=== PATIENT | female | born 1945 | race Caucasian/White ===

== ENCOUNTER → 2017-02-07 | Outpatient (CLI) | payer OTHER ==
[~2017-02-07] MED LIST: CHLO10CA7 PO; CIPR250T3 PO; CITA20TA4 PO; FOLI1TAB7 PO; LORA0.5T12 PO; MULT-878 PO; NCDT21X TD; PANT1TAB48 PO; POTA-331 PO; THIA100T11 PO
--- NOTE | 2017-02-07 14:49 | DIAGNOSTIC IMAGING REPORT ---
RIBS BILATERAL WITH PA CHEST CLINICAL HISTORY: Bilateral rib pain following fall. COMPARISON STUDY: Chest radiograph January 17, 2013. FINDINGS: There is no pneumothorax or pleural effusion. Lungs are clear. Cardiac size is normal. Mediastinal contours are normal. There are acute mildly displaced fractures of the anterolateral left sixth, seventh and eighth ribs. There is an acute mildly displaced fracture of the anterolateral right eighth rib with nondisplaced acute fractures of the right ninth and 10th ribs. There are multiple bilateral rib fractures. IMPRESSION: 1. Acute mildly displaced fractures of the anterolateral left sixth, seventh and eighth ribs. 2. Acute mildly displaced fracture of the anterolateral right eighth rib with nondisplaced acute fractures of the right ninth and 10th ribs. 3. No pneumothorax. 4. Multiple old bilateral rib fractures. Electronically signed by: Fran Cisse M.D. 02/07/2017 2:47 PM Dictated Date/Time: 02/07/2017 2:42 PM
== END ==
LOC: C.RADPV 14:06
PROVIDERS: ATTEND Nurse Practitioner
DX: R07.81 Pleurodynia (principal)

== ENCOUNTER → 2017-08-11 | Outpatient (CLI) | payer OTHER ==
[2017-08-11 18:00] LABS: BASO % 0.9 %; BASO ABS # 0.06 K/uL (0-0.2); COMPLETE YES; EOS % 3.9 %; HEMATOCRIT 36.1 % (37-47); IG% 0.2 %; LYMPH % 30.8 %; LYMPH ABS # 1.99 K/uL (1.2-3.4); MEAN CELL VOLUME 94.5 fL (80-100); MEAN CORPUSCULAR HEMOGLOBIN 31.7 pg (25-34); MEAN CORPUSCULAR HGB CONC 33.5 g/dl (32-36); MONO % 9.4 %; NEUT % 54.8 %; PLATELET COUNT 208 K/uL (130-400); RED BLOOD COUNT 3.82 M/uL (4.2-5.4); WHITE BLOOD COUNT 6.46 K/uL (4.8-10.8)
[2017-08-11 18:20] LABS: BLOOD UREA NITROGEN 13 mg/dl (7-18); BUN/CREATININE RATIO 18.2 (10-20); CALCIUM 10.2 mg/dl (8.5-10.1); CARBON DIOXIDE 28 mmol/L (21-32); CHLORIDE 99 mmol/L (98-107); CREATININE 0.74 mg/dl (0.60-1.20); GLUCOSE 102 mg/dl (70-99); POTASSIUM 3.2 mmol/L (3.5-5.1); SODIUM 135 mmol/L (136-145)
[2017-08-11 18:23] LABS: CHOLESTEROL 206 mg/dl (0-200); CHOLESTEROL/HDL RATIO 2.4; HDL CHOLESTEROL 86 mg/dl; LDL CHOLESTEROL CALCULATED 88 mg/dl; TRIGLYCERIDES 158 mg/dl (0-150); VERY LOW DENSITY LIPOPROT CALC 32 mg/dl
[2017-08-12 06:49] LABS: ESTIMATED AVERAGE GLUCOSE 108 mg/dl; HA1C FLAG Normal (Normal)
== END | disposition home or self-care (01) ==
LOC: C.LABPVFM 11:26
PROVIDERS: ATTEND Nurse Practitioner
DX: E78.5 Hyperlipidemia, unspecified (principal); D50.9 Iron deficiency anemia, unspecified; I10 Essential (primary) hypertension; R73.01 Impaired fasting glucose

== ENCOUNTER → 2017-09-22 | Outpatient (CLI) | payer OTHER ==
[~2017-09-22] MED LIST changes: -FOLI1TAB7 PO; +FOLI1TAB8 PO; +PANT1TAB3 PO; -PANT1TAB48 PO
[2017-09-22 13:34] LABS: BLOOD UREA NITROGEN 14 mg/dl (7-18); CALCIUM 10.1 mg/dl (8.5-10.1); CARBON DIOXIDE 27 mmol/L (21-32); CREATININE 0.81 mg/dl (0.60-1.20); GLUCOSE 100 mg/dl (70-99); POTASSIUM 3.6 mmol/L (3.5-5.1); SODIUM 136 mmol/L (136-145)
== END | disposition home or self-care (01) ==
LOC: C.LABPVFM 10:30
PROVIDERS: ATTEND Nurse Practitioner
DX: E87.6 Hypokalemia (principal); E83.52 Hypercalcemia

== ENCOUNTER → 2017-11-02 | Outpatient (CLI) | payer OTHER ==
[2017-11-02 12:39] LABS: BASO % 0.9 %; BASO ABS # 0.05 K/uL (0-0.2); EOS % 1.5 %; EOS ABS # 0.08 K/uL (0-0.5); HEMATOCRIT 35.6 % (37-47); HEMOGLOBIN 12.6 g/dL (12.0-16.0); IG# 0.01 K/uL (0.00-0.02); LYMPH % 27.7 %; LYMPH ABS # 1.51 K/uL (1.2-3.4); MEAN CELL VOLUME 91.5 fL (80-100); MEAN CORPUSCULAR HEMOGLOBIN 32.4 pg (25-34); MEAN CORPUSCULAR HGB CONC 35.4 g/dl (32-36); MEAN PLATELET VOLUME 10.8 fL (7.4-10.4); MONO % 11.2 %; MONO ABS # 0.61 K/uL (0.11-0.59); NEUT % 58.5 %; NEUT ABS # 3.19 K/uL (1.4-6.5); PLATELET COUNT 200 K/uL (130-400); RED CELL DISTRIBUTION WIDTH CV 13.1 % (11.5-14.5); RED CELL DISTRIBUTION WIDTH SD 43.9 fL (36.4-46.3); WHITE BLOOD COUNT 5.45 K/uL (4.8-10.8)
[2017-11-02 14:41] LABS: ALBUMIN 4.5 gm/dl (3.4-5.0); ALKALINE PHOSPHATASE 62 U/L (45-117); ALT/SGPT 48 U/L (12-78); AST/SGOT 52 U/L (15-37); BLOOD UREA NITROGEN 11 mg/dl (7-18); CALCIUM 10.4 mg/dl (8.5-10.1); CARBON DIOXIDE 25 mmol/L (21-32); CREATININE 0.84 mg/dl (0.60-1.20); GLUCOSE 109 mg/dl (70-99); POTASSIUM 3.4 mmol/L (3.5-5.1); SODIUM 133 mmol/L (136-145)
[2017-11-02 14:46] LABS: TOTAL PROTEIN 8.2 gm/dl (6.4-8.2); TRANSFERRIN 308 mg/dl (200-360)
--- NOTE | 2017-11-10 12:24 | CODING QUERY MEDICAL NECESSITY ---
SUPPORTING DIAGNOSIS NEEDED A supporting diagnosis is required for the test/procedure performed on this patient in order for us to be reimbursed by the patient's insurance. Please provide a supporting diagnosis for the following test/procedure listed below next to the test name along with your signature. *If there is no additional diagnosis for this patient that would support the following test/procedure please document that below next to the test/procedure. Test(s)/Procedure(s) that require a supporting diagnosis: DOS: 11/02/17 * VITAMIN B12 DIAGNOSIS: * VITAMIN D, 25-HYDROXY DIAGNOSIS: Provider Signature: Date: Thank you Radha Farias [employer] Once completed, please kindly fax back to [phone] For questions please call [phone]
--- NOTE | 2017-11-14 08:44 | CODING QUERY MEDICAL NECESSITY ---
SUPPORTING DIAGNOSIS NEEDED A supporting diagnosis is required for the test/procedure performed on this patient in order for us to be reimbursed by the patient's insurance. Please provide a supporting diagnosis for the following test/procedure listed below next to the test name along with your signature. *If there is no additional diagnosis for this patient that would support the following test/procedure please document that below next to the test/procedure. Test(s)/Procedure(s) that require a supporting diagnosis: DOS: 11/02/17 * VITAMIN B12 DIAGNOSIS: * VITAMIN D, 25- HYDROXY DIAGNOSIS: Provider Signature: Date: Thank you Radha Farias [facility] Once completed, please kindly fax back to [phone] For questions please call [phone]
== END | disposition home or self-care (01) ==
LOC: C.LABPVFM 09:40
PROVIDERS: ATTEND Family Medicine
DX: G25.81 Restless legs syndrome (principal)

== ENCOUNTER → 2017-11-22 | Outpatient (CLI) | payer OTHER | END | disposition home or self-care (01) | LOC: C.LABPVFM 09:08 | PROVIDERS: ATTEND Family Medicine | DX: E55.9 Vitamin D deficiency, unspecified (principal) ==

== ENCOUNTER → 2018-03-30 | Outpatient (CLI) | payer OTHER ==
[~2018-03-30] MED LIST changes: +THIA100T10 PO; -THIA100T11 PO
[2018-03-30 13:17] LABS: ALBUMIN 4.1 gm/dl (3.4-5.0); ALKALINE PHOSPHATASE 77 U/L (45-117); ALT/SGPT 38 U/L (12-78); AST/SGOT 43 U/L (15-37); BLOOD UREA NITROGEN 11 mg/dl (7-18); CALCIUM 9.6 mg/dl (8.5-10.1); CARBON DIOXIDE 26 mmol/L (21-32); CHOLESTEROL 189 mg/dl (0-200); GLUCOSE 121 mg/dl (70-99); LDL CHOLESTEROL CALCULATED 80 mg/dl; POTASSIUM 3.3 mmol/L (3.5-5.1); SODIUM 134 mmol/L (136-145); TOTAL PROTEIN 8.1 gm/dl (6.4-8.2)
== END | disposition home or self-care (01) ==
LOC: C.LABPVFM 09:39
PROVIDERS: ATTEND Family Medicine
DX: H61.23 Impacted cerumen, bilateral (principal); E78.5 Hyperlipidemia, unspecified; M85.80 Other specified disorders of bone density and structure, unspecified site; E55.9 Vitamin D deficiency, unspecified

== ENCOUNTER 2020-11-14 06:41 | Inpatient (IN) ==
[2020-11-14] MEDS ORDERED: SODIUM CHLORIDE 0.9% 500 ML IV STA (06:54)
[2020-11-14] MEDS ORDERED: DEXAMETHASONE SOD INJ 10 MG/ML VIAL IV ONE (06:54)
--- NOTE | 2020-11-14 07:05 | Emergency Department Note ---
Impression & Plan Acute respiratory failure with hypoxia, Atrial fibrillation with rapid ventricular response, COPD exacerbation, On apixaban therapy ED Provider Note NAME: DINORAH BUSTAMANTE AGE: 75 SEX: F ARRIVES VIA: Ambulance INFORMANT: Patient, ED PROVIDER(S): Fabrice Crawford MD CHIEF COMPLAINT: Shortness of breath PLAN: Disposition: Admit MEDICAL DECISION MAKING: The patient is a pleasant 75-year-old woman with a past medical history of tobacco use, PAD on Eliquis, hypertension, hyperlipidemia who presents emergency department with acute shortness of breath, respiratory distress from [facility] following discharge yesterday after being admitted at [facility] for the past week related to her PAD and resting leg pain where she had right femoral to anterior tibial composite reverse saphenous vein bypass with harvesting of the left great saphenous vein with Dr. Robin on 11/06/2020, discharged to [facility] yesterday on IV antibiotics, ertapenem 1 g every 24 and vancomycin every 12 hours for possibility of right foot osteomyelitis. Response to this treatment is being followed closely as amputations may be needed for toe. Patient reports she was on oxygen in the hospital but became acutely worse last night into this morning. The patient was hypoxic with significant work of breathing and transferred to emergency department. On arrival the patient is in severe respiratory distress, tachypneic with labored breathing with diffuse wheezes throughout with prolonged expiratory phase with heart rate in atrial fibrillation 140-150s. She appears clinically dry. Her incision sites of bilateral groin and bilateral lower legs are clean dry and intact. Patient was placed on BiPAP and given Xopenex DuoNeb, steroids with improvement in work of breathing and respiratory rate down into the low-mid 20s. Heart rate also showing gradual improvement to mostly 120-130s and then spontaneous converstion to NSR as respiratory status improved. Initial EKG demonstrates atrial fibrillation which does appear to be new. Left bundle branch block is similar to prior. No sgarbossa criteria. Chest x-ray with bilateral interstitial pulmonary opacities left greater than right raising suspicion for pneumonia. WBC within normal limits. H/H 8.7/26.2 similar to prior. Platelets 500, likely reactive. VBG unremarkable. Chemistry without metabolic acidosis. BUN/creatinine> 30 consistent with the patient's clinically dry appearance. Lactate 1.3, within normal limits. Electrolytes unremarkable. LFTs without significant abnormality. Troponin 0.025, within normal limits. BNP elevated at 6700 without prior for comparison and likely related to the patient's atrial fibrillation with RVR. COVID-19 PCR was negative. Influenza and RSV PCR also negative. Patient is already being treated with Ertapenem and Vancomycin. Given diffuse wheezing on exam in the setting of smoking history suspected component of respiratory failure related to COPD. Case was discussed with ROBYN Hutchins hospitalist and ROBYN Medina hospitalist will evaluate the patient for admission. Triage Nursing notes reviewed and agree them. Additional history obtained from EMS Prior medical records reviewed Vital Signs: reviewed and remarkable for tachypnea, tachycardia. Differential diagnosis: Reactive airway disease, pneumonia, pneumothorax, COPD, CHF, infections, cardiac ischemia, pulmonary embolism, musculoskeletal, gastrointestinal, as well as other pathologies. ER treatment provided: See below. Diagnostics interpreted by me: ECG 0650: Atrial fibrillation, 133 bpm, no ectopy, left bundle branch block, no sgarbossa criteria. Left bundle branch block is similar to previous. ECG 0651: Atrial fibrillation, 147 bpm, no ectopy, left bundle branch block, no sgarbossa criteria. ECG 0803: Atrial fibrillation, 149 bpm, no ectopy, left bundle branch block, no sgarbossa criteria. ECG 0924: NSR, 98 bpm, no ectopy, left bundle branch block, no sgarbossa criteria. Cardiac Monitoring: An order for continuous cardiac monitoring was placed and demonstrated Laboratory studies: See below Imaging studies: XR chest 1V portable CLINICAL HISTORY: Atypical chest pain COMPARISON STUDY: 11/07/2020 FINDINGS: The cardiac and mediastinal contours remain stable. There are progressive bilateral interstitial pulmonary opacities. There are no large pleural effusions.[ IMPRESSION: 1. Progressive bilateral interstitial pulmonary opacities. Diagnostic con siderations include a worsening multifocal pneumonia versus worsening asymmetric pulmonary edema. Clinical and radiographic follow-up is recommended. Consultation(s): Case was discussed with ROBYN Hutchins hospitalist and ROBYN Medina hospitalist will evaluate the patient for admission. HPI: The patient is a pleasant 75-year-old woman with a past medical history of tobacco use, PAD, Afib on Eliquis, hypertension, hyperlipidemia who presents emergency department with acute shortness of breath, respiratory distress from [facility] following discharge yesterday after being admitted at [facility] for the past week related to her PAD and resting leg pain where she had right femoral to anterior tibial composite reverse saphenous vein bypass with harvesting of the left great saphenous vein with Dr. Robin on 11/06/2020, discharged to [facility] yesterday on IV antibiotics, ertapenem 1 g every 24 and vancomycin every 12 hours for possibility of right foot osteomyelitis. Response to this treatment is being followed closely as amputations may be needed for toe. Patient reports she was on oxygen in the hospital but became acutely worse last night into this morning. The patient was hypoxic with significant work of breathing and transferred to emergency department. ROS: See above HPI for pertinent positives & negatives. A total of 10 systems reviewed and were otherwise negative. PAST MEDICAL HISTORY:See Below PAST SURGICAL HISTORY:See Below FAMILY HISTORY:See Below SOCIAL HISTORY:See Below HOME MEDICATIONS:See Below ALLERGIES:See Below VITALS:See Below PHYSICAL EXAMINATION: GENERAL: Awake, alert, ill-appearing, in severe distress HENT: Normocephalic, atraumatic. Oropharynx with dry mucous membranes and otherwise unremarkable. EYES: Normal conjunctiva. Sclera non-icteric. NECK: Supple. No nuchal rigidity. FROM. No JVD. RESPIRATORY: Tachypneic with labored breathing with diffuse wheezes throughout with prolonged expiratory phase. CARDIAC: Tachycardic rate, irrregular rhythm. Extremities warm and well perfused. Pulses equal. ABDOMEN: Soft, non-distended. No tenderness to palpation. No rebound or guarding. No masses. RECTAL: Deferred. MUSCULOSKELETAL: Chest examination reveals no tenderness. The back is symmetrical on inspection without obvious abnormality. There is no CVA tenderness to palpation. No joint edema. LOWER EXTREMITIES: Calves are equal size bilaterally and non-tender. Scant edema. No discoloration. Incision sites of bilateral groin and bilateral lower l egs are clean dry and intact. NEURO: Normal sensorium. No sensory or motor deficits noted. SKIN: No rash or jaundice noted. ED COURSE: Critical Care: I have personally spent greater than 65 minutes of critical care time in the direct management of this patient. This includes bedside care, interpretation of diagnostic studies, and testing, discussion with consultants, patient, and family members, and other required patient management activities. This 65 minutes is in excess of all separately billable procedures. Fabrice Crawford MD Past Med/Surg History Medical History Anemia chronic, baseline hgb 10's Arthritis Chronic reflux esophagitis controlled Depression Dyslipidemia Hypertension LBBB (left bundle branch block) dating back to 08/2020 [place] EKG Osteopenia Peripheral arterial disease Bilateral Common Iliac Artery Stenting(Bilateral), Bilateral Femoral Artery Endarterectomy with Bovine Patch (08/2020) Peripheral neuropathy Pulmonary nodule per records, pt denies RLS (restless legs syndrome) Sleep apnea no device Surgical History H/O endarterectomy Bilateral Common Iliac Artery Stenting(Bilateral), Bilateral Femoral Artery Endarterectomy with Bovine Patch: 08/26/20: Grade 2 view, MAC 3.0, ETT 7.0 at [facility] History of appendectomy History of carpal tunnel release of both wrists History of colonoscopy History of tooth extraction Hx of hysterectomy Family History Other No family history of adverse response to anesthesia Social History Smoking Status: Current every day smoker Tobacco Type: Cigarettes Cigarettes Per Day: 5; Second Hand Exposure: No; Do You Dip or Chew Tobacco: No; Tobacco Cessation Education Requested by Patient: No Hx Alcohol Use: Yes Alcohol type: beer Alcohol Intake Frequency Comment: Typically 3-6 beers each day Hx Substance Use: No Preferred Language: Kittitian Communication Ability: Effective Visual Impairment: No Limitations Hearing Ability: Hard of Hearing Weapons And Tactics Instructor Required: No Beliefs That Will Affect Care: None marital status: Current Living Situation: Spouse current occupational status: retired How many Children do You have: 1 Other Information That Helps Us Care for You: No Feels Safe at Home: Yes Assistive Devices: Denture - Upper, Denture - Lower and Oxygen - Continuous Allergies Allergies Allergy/AdvReac Type Severity Reaction Status Date / Time Penicillins Allergy Intermediate Hives Verified 11/14/20 09:32 Home Meds Home Medications Medication Instructions Recorded Confirmed cholecalciferol (vitamin D3) 25 5,000 unit PO QAM cap 08/11/20 11/14/20 mcg (1,000 unit) capsule atorvastatin 40 mg PO QAM 09/26/20 11/14/20 lisinopril 5 mg PO DAILY 09/26/20 11/14/20 multivitamin with minerals 1 tab PO QAM 09/26/20 11/14/20 calcium carbonate-vitamin D3 1 tab PO QAM 10/29/20 11/14/20 Stool Softener 1 tab PO DIRECTED 11/04/20 11/14/20 clopidogrel [Plavix] 75 mg PO DAILY 11/14/20 11/14/20 hydrochlorothiazide 25 mg PO DAILY 11/14/20 11/14/20 Previous Rx's Medication Instructions Recorded aspirin 81 mg tablet,delayed 81 mg PO DAILY #30 tab 02/12/19 release pramipexole 0.125 mg tablet See Rx Instructions .ROUTE 08/18/20 .COMPLEX #45 tab oxycodone 5 mg tablet 10 mg PO Q6H PRN #60 tab 09/24/20 trazodone 50 mg tablet 25 mg PO .COMPLEX PRN #20 tab 09/29/20 gabapentin 100 mg capsule 200 mg PO BID #60 cap 10/14/20 omeprazole 20 mg capsule,delayed 20 mg PO DAILY #30 cap 10/21/20 release Saccharomyces boulardii [Florastor] 250 mg PO DAILY #1 cap 11/13/20 Vancomycin Consult Active [Consult] 1 dose NOT APPLICABLE UD PRN #0 11/13/20 apixaban [Eliquis] 5 mg PO BID #0 tab 11/13/20 Results & Data (ED) Vital Signs Vital Signs - 24 hr 11/14/20 06:33 11/14/20 06:41 11/14/20 06:48 Temperature 36.1 C L Temperature Source Axillary Pulse Rate 159 H 153 H Pulse Rate [Bilateral Foot] Pulse Rate from SpO2 Sensor 129 H Pulse Rhythm Irregular Pulse Strength Normal Pulse Strength [Bilateral Foot] Weak Respiratory Rate 36 H 23 Respiratory Effort / Characteristics Accessory Muscle Use Labored Nasal Flaring Pursed Lip Respiratory Depth Retractive Respiratory Pattern Blood Pressure 112/94 Blood Pressure Mean 100 Blood Pressure Position Sitting Pulse Oximetry 95 94 Oxygen Delivery Method Non-rebreather Oxygen Flow Rate 10 Fraction of Inspired Oxygen Sepsis New/Unexplained Change in Mental Status No Sepsis Action Taken by Nursing Physician Notified 11/14/20 06:50 11/14/20 07:00 11/14/20 07:05 Temperature Temperature Source Pulse Rate 142 H 139 H 133 H Pulse Rate [Bilateral Foot] Pulse Rate from SpO2 Sensor 144 H 156 H Pulse Rhythm Pulse Strength Pulse Strength [Bilateral Foot] Respiratory Rate 27 H 22 25 H Respiratory Effort / Characteristics Spontaneous Respiratory Depth Normal Respiratory Pattern Regular Blood Pressure 112/94 Blood Pressure Mean 100 Blood Pressure Position Pulse Oximetry 92 94 94 Oxygen Delivery Method Oxygen Flow Rate Fraction of Inspired Oxygen 30 Sepsis New/Unexplained Change in Mental Status Sepsis Action Taken by Nursing 11/14/20 07:30 11/14/20 07:49 11/14/20 08:00 Temperature Temperature Source Pulse Rate 144 H 138 H Pulse Rate [Bilateral Foot] Pulse Rate from SpO2 Sensor 150 H 150 H Pulse Rhythm Pulse Strength Pulse Strength [Bilateral Foot] Respiratory Rate 21 19 Respiratory Effort / Characteristics SOB on Exertion Respiratory Depth Respiratory Pattern Blood Pressure Blood Pressure Mean Blood Pressure Position Pulse Oximetry 97 96 Oxygen Delivery Method Oxygen Flow Rate Fraction of Inspired Oxygen Sepsis New/Unexplained Change in Mental Status Sepsis Action Taken by Nursing 11/14/20 08:01 11/14/20 08:25 11/14/20 08:30 Temperature Temperature Source Pulse Rate 151 H 133 H 128 H Pulse Rate [Bilateral Foot] Pulse Rate from SpO2 Sensor 151 H 138 H 142 H Pulse Rhythm Pulse Strength Pulse Strength [Bilateral Foot] Respiratory Rate 21 18 19 Respiratory Effort / Characteristics Respiratory Depth Respiratory Pattern Blood Pressure 102/78 102/78 Blood Pressure Mean 86 86 Blood Pressure Position Pulse Oximetry 100 100 100 Oxygen Delivery Method Oxygen Flow Rate Fraction of Inspired Oxygen Sepsis New/Unexplained Change in Mental Status Sepsis Action Taken by Nursing 11/14/20 09:00 11/14/20 09:30 11/14/20 09:44 Temperature Temperature Source Pulse Rate 84 88 Pulse Rate [Bilateral Foot] 138 H Pulse Rate from SpO2 Sensor 85 88 Pulse Rhythm Pulse Strength Pulse Strength [Bilateral Foot] Respiratory Rate 18 16 25 H Respiratory Effort / Characteristics Non-Labored Spontaneous Respiratory Depth Respiratory Pattern Blood Pressure Blood Pressure Mean Blood Pressure Position Pulse Oximetry 94 96 96 Oxygen Delivery Method BiPAP Oxygen Flow Rate Fraction of Inspired Oxygen 30 Sepsis New/Unexplained Change in Mental Status Sepsis Action Taken by Nursing 11/14/20 09:49 11/14/20 10:00 11/14/20 10:30 Temperature Temperature Source Pulse Rate 95 H 92 H 90 Pulse Rate [Bilateral Foot] Pulse Rate from SpO2 Sensor 94 H 91 H 87 Pulse Rhythm Pulse Strength Pulse Strength [Bilateral Foot] Respiratory Rate 23 21 22 Respiratory Effort / Characteristics Respiratory Depth Respiratory Pattern Blood Pressure 92/76 L 102/63 Blood Pressure Mean 81 76 Blood Pressure Position Pulse Oximetry 96 96 93 Oxygen Delivery Method Oxygen Flow Rate Fraction of Inspired Oxygen Sepsis New/Unexplained Change in Mental Status Sepsis Action Taken by Nursing 11/14/20 11:00 11/14/20 11:30 Temperature Temperature Source Pulse Rate 88 90 Pulse Rate [Bilateral Foot] Pulse Rate from SpO2 Sensor 88 89 Pulse Rhythm Pulse Strength Pulse Strength [Bilateral Foot] Respiratory Rate 18 22 Respiratory Effort / Characteristics Respiratory Depth Respiratory Pattern Blood Pressure 108/62 Blood Pressure Mean 77 Blood Pressure Position Pulse Oximetry 93 93 Oxygen Delivery Method Oxygen Flow Rate Fraction of Inspired Oxygen Sepsis New/Unexplained Change in Mental Status Sepsis Action Taken by Nursing Laboratory Data Attestation: I reviewed the patient's lab results. Result diagrams: 11/14/20 07:19 11/14/20 07:19 Lab Results 11/14/20 11/14/20 11/14/20 Range/Units 07:19 07:19 07:30 WBC 7.64 (4.8-10.8) K/uL RBC 3.08 L (4.2-5.4) M/uL Hgb 8.7 L (12.0-16.0) g/dL Hct 26.2 L (37-47) % MCV 85.1 (80-100) fL MCH 28.2 (25-34) pg MCHC 33.2 (32-36) g/dL RDW Std Deviation 45.6 (36.4-46.3) fL RDW Coeff of Janie 14.6 H (11.5-14.5) % Plt Count 502 H (130-400) K/uL MPV 9.2 (7.4-10.4) fL Immature Gran % (Auto) 0.3 % Neut % (Auto) 82.8 % Lymph % (Auto) 9.3 % [place] % (Auto) 7.3 % Eos % (Auto) 0.0 % Baso % (Auto) 0.3 % Neut # (Auto) 6.33 (1.4-6.5) K/uL Lymph # (Auto) 0.71 L (1.2-3.4) K/uL [place] # (Auto) 0.56 (0.11-0.59) K/uL Eos # (Auto) 0.00 (0-0.5) K/uL Baso # (Auto) 0.02 (0-0.2) K/uL Immature Gran # (Auto) 0.02 (0.00-0.02) K/uL VBG pH 7.36 (7.36-7.41) VBG pCO2 41 (38-50) mmHg VBG pO2 38 mmHg VBG HCO3 23 mmol/L VBG O2 Saturation 68.1 % VBG Base Excess -2.7 mEq/L Barometric Pressure 734.2 mm/Hg Sodium 138 (136-145) mmol/L Potassium 4.1 (3.5-5.1) mmol/L Chloride 108 H (98-107) mmol/L Carbon Dioxide 22 (21-32) mmol/L Anion Gap 9.0 (3-11) BUN 18 (7-18) mg/dl Creatinine 0.52 L (0.6-1.2) mg/dl Est Cr Clr Drug Dosing 81.4 ml/min Est GFR ( Amer) 109.9 Est GFR (Non-Af Amer) 94.8 BUN/Creatinine Ratio 34.0 H (10-20) Glucose 136 H (70-99) mg/dl Lactate (0.4-2.0) mmol/L Calcium 9.3 (8.5-10.1) mg/dl Phosphorus 3.8 (2.5-4.9) mg/dl Magnesium 1.9 (1.8-2.4) mg/dl Total Bilirubin 0.6 (0.2-1) mg/dl Direct Bilirubin 0.2 (0-0.2) mg/dl AST 40 H (15-37) U/L ALT 40 (12-78) U/L Alkaline Phosphatase 96 (45-117) U/L Troponin I 0.025 (0-0.045) ng/ml NT-Pro-B Natriuret Pep 6730 H (0-900) pg/ml Total Protein 6.5 (6.4-8.2) gm/dl Albumin 2.4 L (3.4-5.0) gm/dl Globulin 4.1 H (2.5-4.0) gm/dl Albumin/Globulin Ratio 0.6 L (0.9-2) Procalcitonin (0-0.5) ng/ml COVID-19 Eval Order SARS-CoV-2 (PCR) (Negative) Influenza Type A (PCR) (Neg) Influenza Type B (PCR) (Neg) RSV (RT-PCR) (Neg) 11/14/20 11/14/20 11/14/20 Range/Units 07:35 07:37 07:37 WBC (4.8-10.8) K/uL RBC (4.2-5.4) M/uL Hgb (12.0-16.0) g/dL Hct (37-47) % MCV (80-100) fL MCH (25-34) pg MCHC (32-36) g/dL RDW Std Deviation (36.4-46.3) fL RDW Coeff of Janie (11.5-14.5) % Plt Count (130-400) K/uL MPV (7.4-10.4) fL Immature Gran % (Auto) % Neut % (Auto) % Lymph % (Auto) % [place] % (Auto) % Eos % (Auto) % Baso % (Auto) % Neut # (Auto) (1.4-6.5) K/uL Lymph # (Auto) (1.2-3.4) K/uL [place] # (Auto) (0.11-0.59) K/uL Eos # (Auto) (0-0.5) K/uL Baso # (Auto) (0-0.2) K/uL Immature Gran # (Auto) (0.00-0.02) K/uL VBG pH (7.36-7.41) VBG pCO2 (38-50) mmHg VBG pO2 mmHg VBG HCO3 mmol/L VBG O2 Saturation % VBG Base Excess mEq/L Barometric Pressure mm/Hg Sodium (136-145) mmol/L Potassium (3.5-5.1) mmol/L Chloride (98-107) mmol/L Carbon Dioxide (21-32) mmol/L Anion Gap (3-11) BUN (7-18) mg/dl Creatinine (0.6-1.2) mg/dl Est Cr Clr Drug Dosing ml/min Est GFR ( Amer) Est GFR (Non-Af Amer) BUN/Creatinine Ratio (10-20) Glucose (70-99) mg/dl Lactate (0.4-2.0) mmol/L Calcium (8.5-10.1) mg/dl Phosphorus (2.5-4.9) mg/dl Magnesium (1.8-2.4) mg/dl Total Bilirubin (0.2-1) mg/dl Direct Bilirubin (0-0.2) mg/dl AST (15-37) U/L ALT (12-78) U/L Alkaline Phosphatase (45-117) U/L Troponin I (0-0.045) ng/ml NT-Pro-B Natriuret Pep (0-900) pg/ml Total Protein (6.4-8.2) gm/dl Albumin (3.4-5.0) gm/dl Globulin (2.5-4.0) gm/dl Albumin/Globulin Ratio (0.9-2) Procalcitonin 0.09 (0-0.5) ng/ml COVID-19 Eval Order CovFluRsv at [facility] SARS-CoV-2 (PCR) NEGATIVE (Negative) Influenza Type A (PCR) Negative (Neg) Influenza Type B (PCR) Negative (Neg) RSV (RT-PCR) Negative (Neg) 11/14/20 Range/Units 07:43 WBC (4.8-10.8) K/uL RBC (4.2-5.4) M/uL Hgb (12.0-16.0) g/dL Hct (37-47) % MCV (80-100) fL MCH (25-34) pg MCHC (32-36) g/dL RDW Std Deviation (36.4-46.3) fL RDW Coeff of Janie (11.5-14.5) % Plt Count (130-400) K/uL MPV (7.4-10.4) fL Immature Gran % (Auto) % Neut % (Auto) % Lymph % (Auto) % [place] % (Auto) % Eos % (Auto) % Baso % (Auto) % Neut # (Auto) (1.4-6.5) K/uL Lymph # (Auto) (1.2-3.4) K/uL [place] # (Auto) (0.11-0.59) K/uL Eos # (Auto) (0-0.5) K/uL Baso # (Auto) (0-0.2) K/uL Immature Gran # (Auto) (0.00-0.02) K/uL VBG pH (7.36-7.41) VBG pCO2 (38-50) mmHg VBG pO2 mmHg VBG HCO3 mmol/L VBG O2 Saturation % VBG Base Excess mEq/L Barometric Pressure mm/Hg Sodium (136-145) mmol/L Potassium (3.5-5.1) mmol/L Chloride (98-107) mmol/L Carbon Dioxide (21-32) mmol/L Anion Gap (3-11) BUN (7-18) mg/dl Creatinine (0.6-1.2) mg/dl Est Cr Clr Drug Dosing ml/min Est GFR ( Amer) Est GFR (Non-Af Amer) BUN/Creatinine Ratio (10-20) Glucose (70-99) mg/dl Lactate 1.3 (0.4-2.0) mmol/L Calcium (8.5-10.1) mg/dl Phosphorus (2.5-4.9) mg/dl Magnesium (1.8-2.4) mg/dl Total Bilirubin (0.2-1) mg/dl Direct Bilirubin (0-0.2) mg/dl AST (15-37) U/L ALT (12-78) U/L Alkaline Phosphatase (45-117) U/L Troponin I (0-0.045) ng/ml NT-Pro-B Natriuret Pep (0-900) pg/ml Total Protein (6.4-8.2) gm/dl Albumin (3.4-5.0) gm/dl Globulin (2.5-4.0) gm/dl Albumin/Globulin Ratio (0.9-2) Procalcitonin (0-0.5) ng/ml COVID-19 Eval Order SARS-CoV-2 (PCR) (Negative) Influenza Type A (PCR) (Neg) Influenza Type B (PCR) (Neg) RSV (RT-PCR) (Neg) Administered Medications Acetaminophen (Acetaminophen 325 Mg Tab) 650 mg PO Q4H PRN PRN Reason: pain/fever Stop: 12/14/20 12:29 Last Admin: 11/14/20 17:10 Dose: 650 mg Documented by: [id number] Apixaban (Apixaban 5 Mg Tablet) 5 mg PO BID NARESH Stop: 12/14/20 20:59 Last Admin: 11/14/20 20:47 Dose: 5 mg Documented by: [id number] Gabapentin (Gabapentin 100 Mg Cap) 200 mg PO BID NARESH Stop: 12/14/20 20:59 Last Admin: 11/14/20 20:47 Dose: 200 mg Documented by: [id number] Ertapenem 1,000 mg/ Sodium (Chloride) 60 mls @ 100 mls/hr IV Q24H NARESH; Protocol Stop: 12/26/20 20:59 Last Admin: 11/14/20 21:33 Dose: 100 mls/hr Documented by: [id number] Lorazepam (Lorazepam 0.5 Mg Tab) 0.5 mg SL Q4H PRN PRN Reason: Anxiety/Agitation Stop: 12/14/20 17:41 Last Admin: 11/14/20 20:46 Dose: 0.5 mg Documented by: [id number] Metoprolol Tartrate (Metoprolol Tartrate 25 Mg Tab) 12.5 mg PO Q8 NARESH Stop: 12/14/20 13:59 Last Admin: 11/14/20 21:34 Dose: 12.5 mg Documented by: [id number] Admin: 11/14/20 14:25 Dose: 12.5 mg Documented by: [id number] Oxycodone HCl (Oxycodone Hcl Ir 5 Mg Tab (Immediate Release)) 5 mg PO Q6H PRN PRN Reason: Pain Stop: 11/28/20 13:00 Last Admin: 11/14/20 14:24 Dose: 5 mg Documented by: [id number] Pramipexole Dihydrochloride (Pramipexole Dihydrochlo 0.25 Mg Tab) 0.25 mg PO HS [facility] Stop: 12/14/20 20:59 Last Admin: 11/14/20 20:48 Dose: 0.25 mg Documented by: [id number] Discontinued Medications Dexamethasone (Dexamethasone Sod Inj 10 Mg/Ml Vial) 10 mg IV NOW ONE Stop: 11/14/20 06:55 Last Admin: 11/14/20 07:58 Dose: 10 mg Documented by: [id number] Guaifenesin (Guaifenesin 600 Mg Tabcr) 600 mg PO NOW STA Stop: 11/14/20 08:52 Last Admin: 11/14/20 09:48 Dose: 600 mg Documented by: [id number] Sodium Chloride (Nss) 500 mls @ 999 mls/hr IV .Q31M STA Stop: 11/14/20 07:24 Last Infusion: 11/14/20 07:58 Dose: 0 mls/hr Documented by: [id number] Admin: 11/14/20 07:00 Dose: 999 mls/hr Documented by: [id number] Sodium Chloride (Nss) 500 mls @ 999 mls/hr IV .Q31M ONE Stop: 11/14/20 09:22 Last Infusion: 11/14/20 09:33 Dose: 0 mls/hr Documented by: [id number] Admin: 11/14/20 08:32 Dose: 999 mls/hr Documented by: [id number] Vancomycin HCl 1,250 mg/ (Sodium Chloride) 275 mls @ 200 mls/hr IV ONE ONE Stop: 11/14/20 14:52 Last Infusion: 11/14/20 15:48 Dose: 0 mls/hr Documented by: [id number] Admin: 11/14/20 14:25 Dose: 200 mls/hr Documented by: [id number] Furosemide 20 mg/ Syringe 2 mls @ 4 mls/min IV 1830 ONE Stop: 11/14/20 18:31 Last Admin: 11/14/20 18:38 Dose: 4 mls/min Documented by: [id number] Levalbuterol HCl (Levalbuterol Hcl 0.63 Mg/3 Ml Neb) 0.63 mg NEB NOW STA Stop: 11/14/20 08:51 Last Admin: 11/14/20 09:44 Dose: Not Given Documented by: [id number] Discharge Plan Visit Data Chief Complaint: Respiratory Problems Stated Complaint: RESPIRATORY PROBLEMS ED Provider: Fabrice Crawford Discharge Problem: Acute respiratory failure with hypoxia, Atrial fibrillation with rapid ventricular response, COPD exacerbation, On apixaban therapy Patient Disposition: Admitted As Inpatient Discharge Instructions Interventions: ED Discharge Assessment Last Done: 11/14/20 12:40
[2020-11-14 07:50] LABS: Basophils # (auto) 0.02 K/uL (0-0.2); Basophils % (auto) 0.3 %; Hematocrit (blood only) 26.2 % (37-47); Hemoglobin 8.7 g/dL (12.0-16.0); Immature Granulocytes # (auto) 0.02 K/uL (0.00-0.02); Immature Granulocytes % (auto) 0.3 %; Lymphocytes # (auto) 0.71 K/uL (1.2-3.4); Lymphocytes % (auto) 9.3 %; Mean Corpuscular Hemoglobin 28.2 pg (25-34); Mean Corpuscular Hgb Conc 33.2 g/dL (32-36); Mean Corpuscular Volume 85.1 fL (80-100); Mean Platelet Volume 9.2 fL (7.4-10.4); Monocytes # (auto) 0.56 K/uL (0.11-0.59); Monocytes % (auto) 7.3 %; Neutrophils # (auto) 6.33 K/uL (1.4-6.5); Neutrophils % (auto) 82.8 %; Platelet Count 502 K/uL (130-400); RDW Coefficient of Variation 14.6 % (11.5-14.5); RDW Standard Deviation 45.6 fL (36.4-46.3); Red Blood Count 3.08 M/uL (4.2-5.4); White Blood Count 7.64 K/uL (4.8-10.8)
[2020-11-14 07:58] LABS: Base Excess VBG -2.7 mEq/L; Oxygen Saturation VBG 68.1 %; pH VBG 7.36 (7.36-7.41)
--- NOTE | 2020-11-14 07:59 | XRay Report ---
XR chest 1V portable CLINICAL HISTORY: Atypical chest pain COMPARISON STUDY: 11/07/2020 FINDINGS: The cardiac and mediastinal contours remain stable. There are progressive bilateral interst itial pulmonary opacities. There are no large pleural effusions.[ IMPRESSION: 1. Progressive bilateral interstitial pulmonary opacities. Diagnostic considerations include a worsen ing multifocal pneumonia versus worsening asymmetric pulmonary edema. Clinical and radiographic follo w-up is recommended. ACT 112: Negative or not required by law. Electronically signed by: Jonathan Hernandez M.D. 11/14/2020 7:57 AM
[2020-11-14 08:05] LABS: Albumin Level 2.4 gm/dl (3.4-5.0); Bilirubin Direct 0.2 mg/dl (0-0.2); Calcium 9.3 mg/dl (8.5-10.1); Creatinine Clr Calc Pharmacy 81.4 ml/min; Est GFR (African American) 109.9; Est GFR (Non-African American) 94.8; Magnesium 1.9 mg/dl (1.8-2.4); Potassium 4.1 mmol/L (3.5-5.1)
[2020-11-14 08:10] LABS: Albumin Globulin Ratio 0.6 (0.9-2); Bilirubin,Total 0.6 mg/dl (0.2-1); Globulin 4.1 gm/dl (2.5-4.0); Phosphorus 3.8 mg/dl (2.5-4.9); Total Protein 6.5 gm/dl (6.4-8.2); Troponin I 0.025 ng/ml (0-0.045)
[2020-11-14 08:36] LABS: Influenza A virus by PCR Negative (Neg); Influenza B virus by PCR Negative (Neg); RSV by PCR Negative (Neg); SARS CoV2 RNA(COVID-19) InHosp NEGATIVE (Negative)
[2020-11-14] MEDS ORDERED: LEVALBUTEROL HCL 0.63 MG/3 ML NEB NEB STA (08:50)
[2020-11-14] MEDS ORDERED: guaiFENesin 600 MG TABCR PO STA (08:51)
[2020-11-14] MEDS ORDERED: SODIUM CHLORIDE 0.9% 500 ML IV ONE (08:52)
--- NOTE | 2020-11-14 09:47 | Pharmacy Report ---
ED Pharmacist Progress Note - ED Pharmacist Progress Note Date of Service:: November 14, 2020 Notes:: Asked by Dr. Crawford to look into ertapenem/vancomycin administration at previous visit. Patient received vancomycin 750 mg on 11/13 @ 0309 and ertapenem 11/12 @1808. Patient was discharged to [facility] 11/13 afternoon (prior to next vanco/ertapenem doses). Per nursing patient was not sent with med record from [facility]. Called [facility] and spoke with Savannah who stated she would send over med list to ER.
[2020-11-14] MEDS ORDERED: ONDANSETRON INJ 2 MG/ML 2 ML VIAL IV PRN (12:30)
[2020-11-14] MEDS ORDERED: VANCOMYCIN CONSULT ACTIVE PRN (13:13)
--- NOTE | 2020-11-14 13:25 | Pharmacy Report ---
Pharmacy Abx Dose Short Note - Date of Service November 14, 2020 - Assessment & Plan Assessment 75 year old F admitted with shortness of breath. She is on snf vancomycin and ertapenem for right foot osteo (6 weeks per ID recommendation). * Recent admission 11/04/20 - 11/13/20. Discharged to [facility] on 11/13/20. * BC pending Plan Vancomycin * Patient was on 750 mg (11.5 mg/kg) IV q12h as an outpatient. This dose produced therapeutic trough levels previously. * Her last dose of vanc at [facility] was 11/13 ~1930. At this point she is ~6 hours overdue for a dose. I will order higher dose of 1250 mg (19 mg/kg) IV x 1, then resume 750 mg IV q12h. * Trough level ordered for: 11/15 @ 1330 Continue ertapenem 1000 mg IV q24 (not a pharm consult) * last dose as an outpatient was 11/13 @2100 Pharmacy will continue to follow and will adjust dose/frequency as necessary. Thank you.
[2020-11-14] MEDS ORDERED: VANCOMYCIN HCL 1,250 MG in SODIUM CHLORIDE 0.9% 250 ML IV ONE (13:30)
--- NOTE | 2020-11-14 14:23 | XCELERA ---
[id number]
[2020-11-14] MEDS: oxyCODONE HCL IR 5 MG TAB (IMMEDIATE RELEASE) PO PRN ×2 (14:24→22:44)
[2020-11-14] MEDS: METOPROLOL TARTRATE 25 MG TAB PO SCH ×2 (14:25→21:34)
[2020-11-14] MEDS: ACETAMINOPHEN 325 MG TAB PO PRN (17:10)
--- NOTE | 2020-11-14 18:05 | History & Physical Report ---
Date of Service November 14, 2020 Assessment & Plan (1) Atrial fibrillation with rapid ventricular response: New onset and converted back to normal rhythm in the ED. - Already on anticoagulation for her PAD - Initiate low-dose metoprolol given her blood pressure runs a bit low. - TTE ordered - EF is 45-50%, borderline low. (2) Acute respiratory failure with hypoxia: Likely some level of CHF from IV fluids during last admission. - Will give gentle Lasix. - Supplemental O2 PRN - Monitor (3) Peripheral arterial disease: S/p right femoral to anterior tibial composite reverse saphenous vein bypass with harvesting of the left great saphenous vein with Dr. Robin on 11/06/2020. - Continue aspirin and apixaban - Continue statin (4) Osteomyelitis: Concern for osteomyelitis with ischemia and leg ulcers and wounds. Foot MRI on 11/04 was an extremely poor study and equivocal for osteomyelitis. - [facility] ID recommend vanc/ertapenem x 6 weeks. (End date: 01/14/2021) - Continue (5) Depression: - Continue home trazodone - Ativan SL PRN for anxiety (6) RLS (restless legs syndrome): - Continue home pramipexole (7) DVT prophylaxis: Apixaban for her PAD Admission and Anticipated Discharge Date Admission Date: November 14, 2020 History of Present Illness Primary Care Provider: Marley Bates MD 75yo F w/ hx of PAD who was discharged yesterday after being in the hospital for right leg ischemia who presents with afib with RVR and shortness of breath. Was at [facility] when she says she felt more short of breath yesterday afternoon. Had a tough night with more shortness of breath. In the morning, she was found to be in afib with rates in the 150s and sent to the hospital. In the ED, she converted back to sinus rhythm. Allergies Allergy/AdvReac Type Severity Reaction Status Date / Time Penicillins Allergy Intermediate Hives Verified 11/14/20 09:32 Home Medications Medication Instructions Recorded Confirmed Type aspirin 81 mg tablet,delayed 81 mg PO DAILY #30 tab 02/12/19 11/14/20 Rx release cholecalciferol (vitamin D3) 25 5,000 unit PO QAM cap 08/11/20 11/14/20 History mcg (1,000 unit) capsule pramipexole 0.125 mg tablet See Rx Instructions .ROUTE 08/18/20 11/14/20 Rx .COMPLEX #45 tab oxycodone 5 mg tablet 10 mg PO Q6H PRN #60 tab 09/24/20 11/14/20 Rx atorvastatin 40 mg PO QAM 09/26/20 11/14/20 History lisinopril 5 mg PO DAILY 09/26/20 11/14/20 History multivitamin with minerals 1 tab PO QAM 09/26/20 11/14/20 History trazodone 50 mg tablet 25 mg PO .COMPLEX PRN #20 tab 09/29/20 11/14/20 Rx gabapentin 100 mg capsule 200 mg PO BID #60 cap 10/14/20 11/14/20 Rx omeprazole 20 mg capsule,delayed 20 mg PO DAILY #30 cap 10/21/20 11/14/20 Rx release calcium carbonate-vitamin D3 1 tab PO QAM 10/29/20 11/14/20 History Stool Softener 1 tab PO DIRECTED 11/04/20 11/14/20 History Saccharomyces boulardii [Florastor] 250 mg PO DAILY #1 cap 11/13/20 11/14/20 Rx Vancomycin Consult Active [Consult] 1 dose NOT APPLICABLE UD PRN #0 11/13/20 11/14/20 Rx apixaban [Eliquis] 5 mg PO BID #0 tab 11/13/20 11/14/20 Rx clopidogrel [Plavix] 75 mg PO DAILY 11/14/20 11/14/20 History hydrochlorothiazide 25 mg PO DAILY 11/14/20 11/14/20 History Past Med/Surg History Medical History Anemia chronic, baseline hgb 10's Arthritis Chronic reflux esophagitis controlled Depression Dyslipidemia Hypertension LBBB (left bundle branch block) dating back to 08/2020 [place] EKG Osteopenia Peripheral arterial disease Bilateral Common Iliac Artery Stenting(Bilateral), Bilateral Femoral Artery Endarterectomy with Bovine Patch (08/2020) Peripheral neuropathy Pulmonary nodule per records, pt denies RLS (restless legs syndrome) Sleep apnea no device Surgical History H/O endarterectomy Bilateral Common Iliac Artery Stenting(Bilateral), Bilateral Femoral Artery Endarterectomy with Bovine Patch: 08/26/20: Grade 2 view, MAC 3.0, ETT 7.0 at [facility] History of appendectomy History of carpal tunnel release of both wrists History of colonoscopy History of tooth extraction Hx of hysterectomy Family History Other No family history of adverse response to anesthesia Social History Smoking Status: Current every day smoker Tobacco Type: Cigarettes Cigarettes Per Day: 5; Second Hand Exposure: No; Do You Dip or Chew Tobacco: No; Tobacco Cessation Education Requested by Patient: No Hx Alcohol Use: Yes Alcohol type: beer Alcohol Intake Frequency Comment: Typically 3-6 beers each day Hx Substance Use: No Preferred Language: Chinese Communication Ability: Effective Visual Impairment: No Limitations Hearing Ability: Hard of Hearing 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 Beliefs That Will Affect Care: None marital status: Current Living Situation: Spouse current occupational status: retired How many Children do You have: 1 Other Information That Helps Us Care for You: No Feels Safe at Home: Yes Assistive Devices: Denture - Upper, Denture - Lower and Oxygen - Continuous Review of Systems Review of Systems: All systems reviewed & are unremarkable except as noted in HPI & below Physical Exam Constitutional: WD/WN, vitals as above Eyes: EOM intact bilaterally; no conjunctival abnormality ENMT: external ear and nose normal, oropharynx normal Neck: trachea midline, no thyromegaly normal visual inspection Respiratory: normal respiratory effort, lungs clear to auscultation no respiratory distress Cardiovascular: RRR, no murmur, no edema Gastrointestinal (Abdomen): Inspection/Auscultation: abdomen normal to inspection; abdomen not distended Musculoskeletal: no cyanosis or clubbing, extremities motor strength 5/5 Skin: no rashes, warm and dry Neurologic: moves all extremities and awake Psychiatric: Orientation: alert, oriented to person and cooperative Results & Data Results & Data ([facility]) Vital Signs (Past 12 Hours) Vital Signs Temp Pulse Pulse Resp BP BP Pulse Ox 11/14/20 15:37 36.3 C L 84 21 94/62 L 91 11/14/20 12:40 36.3 C L 97 H 24 96/62 L 93 11/14/20 11:30 90 22 93 11/14/20 11:00 88 18 108/62 93 11/14/20 10:30 90 22 93 11/14/20 10:00 92 H 21 102/63 96 11/14/20 09:49 95 H 23 92/76 L 96 11/14/20 09:44 138 H 25 H 96 11/14/20 09:30 88 16 96 11/14/20 09:00 84 18 94 11/14/20 08:30 128 H 19 100 11/14/20 08:25 133 H 18 102/78 100 11/14/20 08:01 151 H 21 102/78 100 11/14/20 08:00 138 H 19 96 11/14/20 07:30 144 H 21 97 11/14/20 07:05 133 H 25 H 94 11/14/20 07:00 139 H 22 94 11/14/20 06:50 142 H 27 H 112/94 92 11/14/20 06:48 153 H 23 94 11/14/20 06:41 36.1 C L 159 H 36 H 112/94 95 Code Status & VTE Plan VTE Prophylaxis Plan VTE Prophylaxis will be ordered: Yes PG Care Time/CCT Total # of Minutes Spent Total Time Spent with Patient: Total time spent is greater than 50% in coordination of care (as documented) at patient's floor/unit and/or counseling patient: Coding Level of Care Code 55182 Initial Inpt Care Lvl 3 Diagnoses Atrial fibrillation with rapid ventricular response I48.91 Acute respiratory failure with hypoxia J96.01 Peripheral arterial disease I73.9 Osteomyelitis M86.9 Depression F32.9 RLS (restless legs syndrome) G25.81 DVT prophylaxis Z29.9
[2020-11-14] MEDS ORDERED: FUROSEMIDE 20 MG in SYRINGE 0 ML IV ONE (18:30)
[2020-11-14] MEDS: LORazepam 0.5 MG TAB SL PRN (20:46)
[2020-11-14] MEDS: GABAPENTIN 100 MG CAP PO SCH (20:47)
[2020-11-14] MEDS: APIXABAN 5 MG TABLET PO SCH (20:47)
[2020-11-14] MEDS: PRAMIPEXOLE DIHYDROCHLO 0.25 MG TAB PO SCH (20:48)
[2020-11-14] MEDS: ERTAPENEM SODIUM 1,000 MG in SODIUM CHLORIDE 0.9% 50 ML IV SCH (21:33)
[2020-11-14] MEDS: traZODone HCL 50 MG TAB PO PRN (22:43)
[2020-11-14] MEDS ORDERED: ALBUT/IPRATROP 3MG/0.5MG NEB 3 ML VIAL NEB STA (22:50)
[2020-11-15] MEDS: VANCOMYCIN HCL 750 MG in SODIUM CHLORIDE 0.9% 250 ML IV SCH ×2 (02:31→14:36)
[2020-11-15] MEDS: METOPROLOL TARTRATE 25 MG TAB PO SCH (05:54)
[2020-11-15 06:06] LABS: Hematocrit (blood only) 27.2 % (37-47); Mean Corpuscular Hemoglobin 28.3 pg (25-34); Mean Corpuscular Hgb Conc 33.1 g/dL (32-36); Mean Corpuscular Volume 85.5 fL (80-100); Platelet Count 569 K/uL (130-400); RDW Coefficient of Variation 14.5 % (11.5-14.5); RDW Standard Deviation 45.8 fL (36.4-46.3); Red Blood Count 3.18 M/uL (4.2-5.4); White Blood Count 7.91 K/uL (4.8-10.8)
[2020-11-15 06:32] LABS: BUN Creatinine Ratio 37.7 (10-20); Calcium 9.4 mg/dl (8.5-10.1); Est GFR (African American) 107.2; Est GFR (Non-African American) 92.5; Magnesium 1.9 mg/dl (1.8-2.4)
--- NOTE | 2020-11-15 09:09 | Electrocardiogram Report ---
Test Reason : Blood Pressure : / mmHG Vent. Rate : 147 BPM Atrial Rate : 170 BPM P-R Int : 000 ms QRS Dur : 110 ms QT Int : 278 ms P-R-T Axes : 000 085 251 degrees QTc Int : 435 ms Poor data quality, interpretation may be adversely affected Atrial fibrillation with rapid ventricular response Anterior infarct (cited on or before 14-NOV-2020)vs incomplete LBBB Abnormal ECG When compared with ECG of 14-NOV-2020 06:50, (unconfirmed) No significant change was found Confirmed by Yves Garrido ([id number]) on 11/16/2020 12:13:23 PM Referred By: REFERRED SELF Confirmed By:Yves Garrido
--- NOTE | 2020-11-15 09:10 | Electrocardiogram Report ---
Test Reason : Blood Pressure : / mmHG Vent. Rate : 098 BPM Atrial Rate : 098 BPM P-R Int : 152 ms QRS Dur : 120 ms QT Int : 382 ms P-R-T Axes : 097 066 081 degrees QTc Int : 487 ms Normal sinus rhythm Anterior infarct (cited on or before 14-NOV-2020) vs LBBB Abnormal ECG When compared with ECG of 14-NOV-2020 08:03, (unconfirmed) Sinus rhythm has replaced Atrial fibrillation Vent. rate has decreased BY 51 BPM Confirmed by Yves Garrido ([id number]) on 11/15/2020 9:10:02 AM Referred By: REFERRED SELF Confirmed By:Yves Garrido
[2020-11-15] MEDS ORDERED: FUROSEMIDE 40 MG in SYRINGE 0 ML IV ONE (09:30)
[2020-11-15] MEDS: ASPIRIN 81 MG ECTAB PO SCH (10:11)
[2020-11-15] MEDS: predniSONE 20 MG TAB PO SCH (10:11)
[2020-11-15] MEDS: GABAPENTIN 100 MG CAP PO SCH ×2 (10:11→20:23)
[2020-11-15] MEDS: PANTOprazole 40 MG TAB PO SCH (10:11)
[2020-11-15] MEDS: SACCHAROMYCES BOULARDII 250 MG CAP PO SCH (10:11)
[2020-11-15] MEDS: APIXABAN 5 MG TABLET PO SCH ×2 (10:12→20:22)
[2020-11-15] MEDS: ATORVASTATIN 40 MG TAB PO SCH (10:33)
[2020-11-15] MEDS: LORazepam 0.5 MG TAB SL PRN ×2 (10:56→20:21)
[2020-11-15] MEDS: ALBUT/IPRATROP 3MG/0.5MG NEB 3 ML VIAL NEB SCH ×3 (11:21→19:20)
--- NOTE | 2020-11-15 12:36 | Hospitalist Progress Note ---
Date of Service November 15, 2020 Assessment & Plan (1) Acute respiratory failure with hypoxia: Likely some level of CHF from IV fluids during last admission along with COPD exacerbation. - Giving Lasix "as needed" after checking morning Cr. - On 11/15, I felt also an element of acute COPD exacerbation. Added prednisone and standing + PRN DuoNebs. Already on broad abx for the osteomyelitis, so will not adjust. Feel an atypical infection is unlikely given recent prolonged hospitalization. - Supplemental O2 PRN - Monitor (2) Atrial fibrillation with rapid ventricular response: New onset and converted back to normal rhythm in the ED. - Already on anticoagulation for her PAD - Initiated low-dose metoprolol given her blood pressure runs a bit low. Will adjust today to Toprol XL 50 mg daily. - TTE ordered - EF is 45-50%, borderline LVH. (3) Peripheral arterial disease: S/p right femoral to anterior tibial composite reverse saphenous vein bypass with harvesting of the left great saphenous vein with Dr. Robin on 11/06/2020. - Continue aspirin and apixaban - Continue statin - Plan to see vascular in 1 week to see how surgical sites and toes are healing. (4) Osteomyelitis: Concern for osteomyelitis with ischemia and leg ulcers and wounds. Foot MRI on 11/04 was an extremely poor study and equivocal for osteomyelitis. - [facility] ID recommend vanc/ertapenem x 6 weeks. (End date: 01/14/2021) - Continue abx (5) Depression: - Continue home trazodone - Ativan SL PRN for anxiety (6) RLS (restless legs syndrome): - Continue home pramipexole (7) DVT prophylaxis: Apixaban for her PAD Admission and Anticipated Discharge Date Admission Date: November 14, 2020 Subjective Doing some better today. Less shortness of breath. Reports no fevers/chills, chest pain, abdominal pain, nausea, or vomiting. Physical Exam Constitutional: WD/WN, vitals as above Eyes: EOM intact bilaterally; no conjunctival abnormality ENMT: external ear and nose normal, oropharynx normal Neck: trachea midline, no thyromegaly normal visual inspection Respiratory: + labored breathing; no respiratory distress Auscultation: + diminished lung sounds and + wheezes Cardiovascular: RRR, no murmur, no edema Gastrointestinal (Abdomen): Inspection/Auscultation: abdomen normal to inspection; abdomen not distended Musculoskeletal: no cyanosis or clubbing, extremities motor strength 5/5 Skin: no rashes, warm and dry Neurologic: moves all extremities and awake Psychiatric: Orientation: alert, oriented to person and cooperative Results & Data Results & Data ([facility]) Vital Signs (Past 12 Hours) Vital Signs Temp Pulse Resp BP Pulse Ox 11/15/20 11:26 36.5 C 85 22 120/73 98 11/15/20 11:21 83 22 96 11/15/20 07:18 36.5 C 81 22 123/72 90 11/15/20 06:00 107/79 11/15/20 03:00 36.6 C 85 20 103/66 95 PG Care Time/CCT Total # of Minutes Spent Total Time Spent with Patient: Total time spent is greater than 50% in coordination of care (as documented) at patient's floor/unit and/or counseling patient: Coding Level of Care Code 98441 Subseq Hosp Care Lvl 3 Diagnoses Acute respiratory failure with hypoxia J96.01 Atrial fibrillation with rapid ventricular response I48.91 Peripheral arterial disease I73.9 Osteomyelitis M86.9 Depression F32.9 RLS (restless legs syndrome) G25.81 DVT prophylaxis Z29.9
[2020-11-15] MEDS ORDERED: VANCOMYCIN TROUGH ONE (13:30)
[2020-11-15] MEDS: METOPROLOL SUCC 50MG EXT REL TAB PO SCH (14:37)
--- NOTE | 2020-11-15 14:55 | Pharmacy Report ---
Pharmacy Abx Dose Short Note - Date of Service November 15, 2020 - Assessment & Plan Assessment 75 year old F admitted with shortness of breath. She is on custodial vancomycin and ertapenem for right foot osteo (6 weeks per ID recommendation). * Recent admission 11/04/20 - 11/13/20. Discharged to [facility] on 11/13/20. * Preliminary BC reported no growth Plan Vancomycin * Trough level of 18 mcg/mL is therapeutic * Continue dose of 750 mg IV every 12 hours * Goal trough level for 15-20 mcg/mL Continue ertapenem 1000 mg IV q24 (not a pharm consult) Pharmacy will continue to follow and will adjust dose/frequency as necessary. Thank you.
[2020-11-15] MEDS: oxyCODONE HCL IR 5 MG TAB (IMMEDIATE RELEASE) PO PRN (19:35)
[2020-11-15] MEDS: ERTAPENEM SODIUM 1,000 MG in SODIUM CHLORIDE 0.9% 50 ML IV SCH (20:20)
[2020-11-15] MEDS: traZODone HCL 50 MG TAB PO PRN (20:21)
[2020-11-15] MEDS: PRAMIPEXOLE DIHYDROCHLO 0.25 MG TAB PO SCH (20:22)
[2020-11-16] MEDS: oxyCODONE HCL IR 5 MG TAB (IMMEDIATE RELEASE) PO PRN ×2 (02:12→20:01)
[2020-11-16] MEDS: VANCOMYCIN HCL 750 MG in SODIUM CHLORIDE 0.9% 250 ML IV SCH ×2 (02:12→13:42)
[2020-11-16] MEDS: LORazepam 0.5 MG TAB SL PRN (03:43)
[2020-11-16 06:39] LABS: Hematocrit (blood only) 26.4 % (37-47); Hemoglobin 8.5 g/dL (12.0-16.0); Mean Corpuscular Hemoglobin 27.5 pg (25-34); Mean Corpuscular Hgb Conc 32.2 g/dL (32-36); Mean Corpuscular Volume 85.4 fL (80-100); Mean Platelet Volume 9.1 fL (7.4-10.4); Platelet Count 646 K/uL (130-400); RDW Coefficient of Variation 14.8 % (11.5-14.5); RDW Standard Deviation 46.6 fL (36.4-46.3); Red Blood Count 3.09 M/uL (4.2-5.4); White Blood Count 11.38 K/uL (4.8-10.8)
[2020-11-16] MEDS: ALBUT/IPRATROP 3MG/0.5MG NEB 3 ML VIAL NEB SCH ×4 (07:05→19:32)
[2020-11-16 07:17] LABS: Calcium 9.1 mg/dl (8.5-10.1); Creatinine Clr Calc Pharmacy 63.2 ml/min; Est GFR (African American) 101.6; Est GFR (Non-African American) 87.6; Magnesium 1.8 mg/dl (1.8-2.4); Potassium 3.7 mmol/L (3.5-5.1)
[2020-11-16] MEDS: ATORVASTATIN 40 MG TAB PO SCH (07:38)
[2020-11-16] MEDS: SACCHAROMYCES BOULARDII 250 MG CAP PO SCH (07:39)
[2020-11-16] MEDS: APIXABAN 5 MG TABLET PO SCH ×2 (07:39→20:02)
[2020-11-16] MEDS: predniSONE 20 MG TAB PO SCH (07:39)
[2020-11-16] MEDS: ASPIRIN 81 MG ECTAB PO SCH (07:39)
[2020-11-16] MEDS: GABAPENTIN 100 MG CAP PO SCH ×2 (07:39→20:02)
[2020-11-16] MEDS: METOPROLOL SUCC 50MG EXT REL TAB PO SCH (07:39)
[2020-11-16] MEDS: PANTOprazole 40 MG TAB PO SCH (07:40)
--- NOTE | 2020-11-16 07:43 | Electrocardiogram Report ---
Test Reason : Blood Pressure : / mmHG Vent. Rate : 149 BPM Atrial Rate : 125 BPM P-R Int : 000 ms QRS Dur : 116 ms QT Int : 330 ms P-R-T Axes : 000 063 109 degrees QTc Int : 519 ms Atrial fibrillation with rapid ventricular response Anterior infarct (cited on or before 14-NOV-2020)vs incomplete LBBB Abnormal ECG When compared with ECG of 14-NOV-2020 06:51, (unconfirmed) No significant change was found Confirmed by Yves Garrido ([id number]) on 11/15/2020 9:08:43 AM Also confirmed by Yves Garrido ([id number]), manuscript editor Silverio Martinez ([id number]) on 11/16/2020 7:42:52 AM Referred By: REFERRED SELF Confirmed By:Yves Garrido
[2020-11-16] MEDS ORDERED: FUROSEMIDE 40 MG in SYRINGE 0 ML IV ONE (09:30)
--- NOTE | 2020-11-16 11:34 | Hospitalist Progress Note ---
Date of Service November 16, 2020 Assessment & Plan (1) Acute respiratory failure with hypoxia: Likely some level of iatrogenic volume overload from IV fluids during last admission along with COPD exacerbation. - Giving Lasix "as needed" after checking morning Cr. - Lasix 40 mg IV x 1 given on 11/16 - On 11/15, I felt also an element of acute COPD exacerbation. Added prednisone and standing + PRN DuoNebs. Already on broad abx for the osteomyelitis, so will not adjust. Feel an atypical lung infection is unlikely given recent prolonged hospitalization. - Supplemental O2 PRN - Monitor (2) Atrial fibrillation with rapid ventricular response: New onset and converted back to normal rhythm in the ED. - Already on anticoagulation for her PAD - Initiated low-dose metoprolol given her blood pressure runs a bit low. Switched to Toprol XL 50 mg daily on 11/15. - TTE ordered - EF is 45-50%, borderline LVH. (3) Peripheral arterial disease: S/p right femoral to anterior tibial composite reverse saphenous vein bypass with harvesting of the left great saphenous vein with Dr. Robin on 11/06/2020. - Continue aspirin and apixaban - Continue statin - Plan to see vascular in 1 week to see how surgical sites and toes are healing. (4) Osteomyelitis: Concern for osteomyelitis with ischemia and leg ulcers and wounds. Foot MRI on 11/04 was an extremely poor study and equivocal for osteomyelitis. - [facility] ID recommend vanc/ertapenem x 6 weeks. (End date: 01/14/2021) - Continue abx (5) Depression: - Continue home trazodone - Ativan SL PRN for anxiety (6) RLS (restless legs syndrome): - Continue home pramipexole (7) DVT prophylaxis: Apixaban for her PAD Admission and Anticipated Discharge Date Admission Date: November 14, 2020 Subjective Feels she is breathing some better today. Less wheezing. Is asking to see Dr. Robin to check out her surgical sites. Reports no fevers/chills, chest pain, abdominal pain, nausea, or vomiting. Physical Exam Constitutional: WD/WN, vitals as above Eyes: EOM intact bilaterally; no conjunctival abnormality ENMT: external ear and nose normal, oropharynx normal Neck: trachea midline, no thyromegaly normal visual inspection Respiratory: normal respiratory effort, lungs clear to auscultation + labored breathing; no respiratory distress Auscultation: + diminished lung sounds and + wheezes (Improving) Cardiovascular: RRR, no murmur, no edema Gastrointestinal (Abdomen): Inspection/Auscultation: abdomen normal to inspection; abdomen not distended Musculoskeletal: no cyanosis or clubbing, extremities motor strength 5/5 Skin: no rashes, warm and dry Neurologic: moves all extremities and awake Psychiatric: Orientation: alert, oriented to person and cooperative Results & Data Results & Data ([facility]) Vital Signs (Past 12 Hours) Vital Signs Temp Pulse Pulse Pulse Resp BP Pulse Ox 11/16/20 11:02 95 H 78 20 95 11/16/20 08:54 37.0 C 76 18 113/75 95 11/16/20 07:07 76 19 96 11/16/20 02:21 36.3 C L 79 24 126/79 94 11/15/20 23:39 113 H 11/15/20 23:34 79 PG Care Time/CCT Total # of Minutes Spent Total Time Spent with Patient: Total time spent is greater than 50% in coordination of care (as documented) at patient's floor/unit and/or counseling patient: Coding Level of Care Code 60357 Subseq Hosp Care Lvl 2 Diagnoses Acute respiratory failure with hypoxia J96.01 Atrial fibrillation with rapid ventricular response I48.91 Peripheral arterial disease I73.9 Osteomyelitis M86.9 Depression F32.9 RLS (restless legs syndrome) G25.81 DVT prophylaxis Z29.9
[2020-11-16] MEDS: NYSTATIN SUSP 500,000 U/5 ML UDC PO SCH ×2 (15:55→20:03)
[2020-11-16] MEDS: PRAMIPEXOLE DIHYDROCHLO 0.25 MG TAB PO SCH (20:02)
[2020-11-16] MEDS: ERTAPENEM SODIUM 1,000 MG in SODIUM CHLORIDE 0.9% 50 ML IV SCH (21:28)
[2020-11-17] MEDS: oxyCODONE HCL IR 5 MG TAB (IMMEDIATE RELEASE) PO PRN ×3 (01:27→21:46)
[2020-11-17] MEDS: VANCOMYCIN HCL 750 MG in SODIUM CHLORIDE 0.9% 250 ML IV SCH ×2 (02:51→13:45)
[2020-11-17] MEDS ORDERED: FUROSEMIDE 40 MG in SYRINGE 0 ML IV ONE ×2 (05:30→08:00)
[2020-11-17 06:16] LABS: Hemoglobin 8.9 g/dL (12.0-16.0); Mean Corpuscular Hemoglobin 28.4 pg (25-34); Mean Corpuscular Volume 86.3 fL (80-100); Mean Platelet Volume 9.3 fL (7.4-10.4); Platelet Count 686 K/uL (130-400); RDW Coefficient of Variation 14.7 % (11.5-14.5); RDW Standard Deviation 46.4 fL (36.4-46.3); Red Blood Count 3.13 M/uL (4.2-5.4); White Blood Count 12.63 K/uL (4.8-10.8)
[2020-11-17 06:55] LABS: BUN Creatinine Ratio 36.3 (10-20); Calcium 9.7 mg/dl (8.5-10.1); Creatinine Clr Calc Pharmacy 55.4 ml/min; Est GFR (African American) 93.2; Est GFR (Non-African American) 80.4; Magnesium 1.7 mg/dl (1.8-2.4); Potassium 3.7 mmol/L (3.5-5.1)
--- NOTE | 2020-11-17 07:20 | XRay Report ---
XR chest 1V portable HISTORY: 75 years-old Female fluid retention acute shortness of breath COMPARISON: Chest radiograph 11/14/2020 TECHNIQUE: Portable AP view of the chest FINDINGS: Cardiac silhouette is enlarged, unchanged. Pulmonary vascular congestion with bilateral reticular and ill-defined patchy airspace opacities. Findings are generally stable from comparison. No pneumothora x or large pleural effusion. Unchanged blunting of the costophrenic angles. A right-sided PICC is red emonstrated with distal tip terminating in the expected location of the superior cavoatrial junction. Calcified plaque of the thoracic aorta. IMPRESSION: 1. Cardiomegaly with unchanged mixed interstitial and alveolar opacities suggestive of pulmonary demar a versus multifocal pneumonia. 2. Stable positioning of the right-sided PICC. ACT 112: Negative or not required by law. The above report was generated using voice recognition software. It may contain grammatical, syntax o r spelling errors. Electronically signed by: Cy Cuevas M.D. 11/17/2020 7:19 AM
[2020-11-17] MEDS: SACCHAROMYCES BOULARDII 250 MG CAP PO SCH (07:21)
[2020-11-17] MEDS: METOPROLOL SUCC 50MG EXT REL TAB PO SCH (07:21)
[2020-11-17] MEDS: ATORVASTATIN 40 MG TAB PO SCH (07:21)
[2020-11-17] MEDS: predniSONE 20 MG TAB PO SCH (07:21)
[2020-11-17] MEDS: PANTOprazole 40 MG TAB PO SCH (07:21)
[2020-11-17] MEDS: NYSTATIN SUSP 500,000 U/5 ML UDC PO SCH ×4 (07:22→20:21)
[2020-11-17] MEDS: APIXABAN 5 MG TABLET PO SCH ×2 (07:22→20:21)
[2020-11-17] MEDS: GABAPENTIN 100 MG CAP PO SCH ×2 (07:22→20:21)
[2020-11-17] MEDS: ALBUT/IPRATROP 3MG/0.5MG NEB 3 ML VIAL NEB SCH ×4 (07:27→20:00)
[2020-11-17] MEDS: LORazepam 0.5 MG TAB SL PRN (07:31)
[2020-11-17] MEDS: POTASSIUM CHLORIDE CRTAB 20 MEQ TABCR PO SCH (08:53)
[2020-11-17] MEDS: MAGNESIUM SULFATE / D5W 1 GM/100 ML BAG IV SCH ×2 (08:54→10:08)
[2020-11-17] MEDS: ASPIRIN 81 MG ECTAB PO SCH (09:01)
--- NOTE | 2020-11-17 16:33 | Heart Failure Consultation ---
Date of Consultation November 17, 2020 Assessment & Plan (1) Heart failure with mid-range ejection fraction: (2) COPD exacerbation: (3) Peripheral arterial disease: (4) Hypertension: (5) Atrial fibrillation with rapid ventricular response: Currently NYHA Class III symptoms. She denies previous history of CHF or COPD. Potentially iatrogenic volume overload from her recent surgery. Could also be tachycardia induced. She continues to examine hypervolemic. Chest x-ray and BNP support evidence of such. Agree with continued diuresis- Lasix 40 mg IV BID. Kidney function and electrolytes remain stable- continue to monitor. Continue low sodium diet. Strict I&Os while inpatient. Continue daily standing weights. Dry weight seems to be around 120 lb according to the chart. She does not typically weigh herself at home but the last time she was 116 lb. We discussed the nature of heart failure and the goals of the program. She is agreeable to participation. Cardiomyopathy: Left ventricular systolic function mildly reduced on echo, 45- 50%. Etiology unclear- potentially from tachycardia as she presented in atrial fibrillation. Rate is now adequately controlled and she is back in sinus rhythm. Continue Metoprolol succinate 50 mg daily. Home med list includes Lisinopril, likely held on admission. Would consider resuming on discharge if BP and kidney function adequate. Atrial fibrillation: Patient presented in afib with RVR. She converted to sinus in the ED. Rate is currently well controlled with beta jamilah. Continue Eliquis 5 mg BID for primary prevention. Hypertension: Well controlled. Continue current therapy. COPD: Presumed. Likely contributing factor to her ongoing dyspnea and wheezing. Continue nebs/steroids. Patient recently quit smoking. Continued cessation recommended. Would recommend outpatient PFTs. PAD: S/p right femoral to anterior tibial composite reverse saphenous vein bypass with harvesting of the left great saphenous vein with Dr. Robin on 11/06/2020. Disposition: Enroll in [facility] heart failure program. Will continue to follow during hospitalization. Anticipate close follow up on discharge. History of Present Illness Attending Physician: [facility] Figuero[facility] Ms. Castillo is a 75 year old female with a history of PAD (S/p right femoral to anterior tibial composite reverse saphenous vein bypass with harvesting of the left great saphenous vein with Dr. Robin on 11/06/2020), and osteomyelitis. She is currently admitted with new onset atrial fibrillation and acute respiratory failure, likely secondary to iatrogenic volume overload s/p recent surgery. She has been referred to the heart failure program by Dr. Swanson. She was working with OT at the time of my visit. OT notes increased confusion from the previous admission when she worked with her. She continues to be short of breath. She states she is normally able to perform most of her ADLs without difficulty. She also has lower extremity edema. She has had Lasix 40 mg IV x 2 this am. Her weight seems to be significantly higher than her previous dry weights according to the chart. Chest xray today consistent with pulmonary edema vs pneumonia. ProBNP significantly elevated from 6k on 11/14/20 to 16k on 11/17/20. She denies chest pain, lightheadedness, palpitations. Recent cardiac studies: 1. Echo 11/14/20: LV systolic function is borderline reduced. EF 45-50%. Septal motion consistent with conduction abnormality. Borderline concentric LVH. No valvular pathology. SocHx: Patient lives at home with her and is the primary b2b appointment setter. She is able to drive and manage her own medications. She quit smoking a few months ago. Allergies Allergy/AdvReac Type Severity Reaction Status Date / Time Penicillins Allergy Intermediate Hives Verified 11/14/20 09:32 Home Medications Medication Instructions Recorded Confirmed Type aspirin 81 mg tablet,delayed 81 mg PO DAILY #30 tab 02/12/19 11/14/20 Rx release cholecalciferol (vitamin D3) 25 5,000 unit PO QAM cap 08/11/20 11/14/20 History mcg (1,000 unit) capsule pramipexole 0.125 mg tablet See Rx Instructions .ROUTE 08/18/20 11/14/20 Rx .COMPLEX #45 tab oxycodone 5 mg tablet 10 mg PO Q6H PRN #60 tab 09/24/20 11/14/20 Rx atorvastatin 40 mg PO QAM 09/26/20 11/14/20 History lisinopril 5 mg PO DAILY 09/26/20 11/14/20 History multivitamin with minerals 1 tab PO QAM 09/26/20 11/14/20 History trazodone 50 mg tablet 25 mg PO .COMPLEX PRN #20 tab 09/29/20 11/14/20 Rx gabapentin 100 mg capsule 200 mg PO BID #60 cap 10/14/20 11/14/20 Rx omeprazole 20 mg capsule,delayed 20 mg PO DAILY #30 cap 10/21/20 11/14/20 Rx release calcium carbonate-vitamin D3 1 tab PO QAM 10/29/20 11/14/20 History Stool Softener 1 tab PO DIRECTED 11/04/20 11/14/20 History Saccharomyces boulardii [Florastor] 250 mg PO DAILY #1 cap 11/13/20 11/14/20 Rx Vancomycin Consult Active [Consult] 1 dose NOT APPLICABLE UD PRN #0 11/13/20 11/14/20 Rx apixaban [Eliquis] 5 mg PO BID #0 tab 11/13/20 11/14/20 Rx clopidogrel [Plavix] 75 mg PO DAILY 11/14/20 11/14/20 History hydrochlorothiazide 25 mg PO DAILY 11/14/20 11/14/20 History Patient History Medical History (Updated 11/18/20 @ 08:18 by Amada Mireles PA-C) Anemia chronic, baseline hgb 10's Arthritis Chronic reflux esophagitis controlled Depression Dyslipidemia Hypertension LBBB (left bundle branch block) dating back to 08/2020 [place] EKG Osteopenia Peripheral arterial disease Bilateral Common Iliac Artery Stenting(Bilateral), Bilateral Femoral Artery Endarterectomy with Bovine Patch (08/2020) Peripheral neuropathy Pulmonary nodule per records, pt denies RLS (restless legs syndrome) Sleep apnea no device Surgical History H/O endarterectomy Bilateral Common Iliac Artery Stenting(Bilateral), Bilateral Femoral Artery Endarterectomy with Bovine Patch: 08/26/20: Grade 2 view, MAC 3.0, ETT 7.0 at [facility] History of appendectomy History of carpal tunnel release of both wrists History of colonoscopy History of tooth extraction Hx of hysterectomy Family History Other No family history of adverse response to anesthesia Social History Smoking Status: Current every day smoker Tobacco Type: Cigarettes Cigarettes Per Day: 5; Second Hand Exposure: No; Hx Alcohol Use: Yes Alcohol type: beer Alcohol Intake Frequency Comment: Typically 3-6 beers each day Hx Substance Use: No Preferred Language: Cambodian Communication Ability: Effective Visual Impairment: No Limitations Hearing Ability: Hard of Hearing Extrusion Die Repairer Required: No Beliefs That Will Affect Care: None marital status: Current Living Situation: Spouse current occupational status: retired How many Children do You have: 1 Feels Safe at Home: Yes Assistive Devices: Oxygen - Continuous Physical Exam Physical Exam: General: No acute distress, comfortable. HEENT: Head is normal. Sclerae anicteric Neck: Supple, + JVD. Lungs: Slightly increased respiratory effort. Diffuse bilateral crackles, expiratory wheeze. Cardiac: Regular rate and rhythm. S1-S2 normal. No appreciable murmur, gallop or rub. Abdomen: Soft and nontender. Bowel sounds normal. No mass or organomegaly. Extremities: Bilateral medial surgical incisions, healing well, no erythema/drainage, kirti intact. 2+ bilateral pitting edema. Dressing noted over the lateral aspect of the RLE. Neurologic: Nonfocal Psychiatric: Affect appropriate. Alert and oriented. Results & Data ([facility]) Vital Signs (Past 12 Hours) Vital Signs Temp Pulse Pulse Pulse Resp BP Pulse Ox 11/17/20 15:20 97.5 F L 82 18 132/75 92 11/17/20 14:30 77 18 97 11/17/20 11:29 98.1 F 82 18 104/77 93 11/17/20 11:13 74 18 93 11/17/20 08:00 77 11/17/20 07:41 98.1 F 85 18 127/62 95 11/17/20 07:28 85 18 90 Heart Failure Data/Metrics Heart Failure Type: Diastolic Ejection Fraction: 45-50% NYHA classification: III: Sx w/ ltd. activity Risk Stratification: C Dry Weight: 120 lb Weight: 135 lb Pacemaker: No Implanted Cardiac Defibrillator (ICD): No Bi-V Pacemaker: No Bi-V Defibrillator: No Diabetes Mellitus: No Evidenced Based Beta Jamilah Therapy Beta Jamilah Therapy: Yes Beta Jamilah Name: Metoprolol Succinate ASMY/ARB/ARNI Therapy SAMY/ARB/ARNI Therapy: Not Indicated Aldosterone Antagonist Therapy Aldosterone Antagonist Therapy: Not Indicated SGLT-2 Inhibitor Therapy SGLT-2 Inhibitor Therapy: Not Indicated Coding Level of Care Code 46289 Initial Inpt Care Lvl 3 Diagnoses Heart failure with mid-range ejection fraction I50.9 COPD exacerbation J44.1 Peripheral arterial disease I73.9 Hypertension I10 Atrial fibrillation with rapid ventricular response I48.91
[2020-11-17] MEDS ORDERED: GABAPENTIN 100 MG CAP PO ONE (17:00)
--- NOTE | 2020-11-17 19:18 | Hospitalist Progress Note ---
Date of Service November 17, 2020 Assessment & Plan (1) Acute combined systolic and diastolic heart failure: clinically and radiographically still volume overloaded. received a dose of 40mg lasix early this am. this was then repeated later in the am. she has diuresed well with such. moving forward will continue with once-twice daily lasix. etiology- tachyarrhythmia? was in rapid a.fib upon admission. other? continue metoprolol xl. ideally will need lowdose SAMY or ARB. repeat labs in am. CHF clinic consult placed. (2) Acute respiratory failure with hypoxia: Likely combination of acute CHF and COPD exacerbation. Doubt infectious etiology. Diurese. Steroids. Nebs. (3) Atrial fibrillation with rapid ventricular response: New onset. Resolved while awaiting admission in ER. Remains in NSR. Cont metoprolol xl. Continue eliquis BID. (4) Peripheral arterial disease: S/p right femoral to anterior tibial composite reverse saphenous vein bypass with harvesting of the left great saphenous vein with Dr. Robin on 11/06/2020. Continue aspirin and apixaban Continue statin Good pulses and perfusion on exam today. Needs vascular f/u in about 1 week. (5) Osteomyelitis: Concern for osteomyelitis of right foot. Right Foot MRI on 11/04 was an extremely poor study and equivocal for osteomyelitis however. [id number], Garry MONTGOMERY recommended vanc/ertapenem x 6 weeks. (End date: 01/14/2021). RUE PICC line in place. Recheck inflammatory markers in am. (6) Depression: - Continue home trazodone - Ativan SL PRN for anxiety (7) RLS (restless legs syndrome): Continue home pramipexole recheck iron studies in am (8) Anemia: Check b12, folate, iron studies in am (9) Peripheral neuropathy: patient c/o severe, b/l leg pain (R>L) from the knees down to the feet. I do not think this is due to PAD as she has good perfusion in both legs today. I believe much of the pain is neuropathic. Increase gabapentin to 200mg TID. Consider addition of cymbalta. Check b12 level. The pain is severe -- increase oxycodone to 7.5mg q6h prn. (10) COPD exacerbation: Continue prednisone, nebs, supportive care. Consider wean of steroids tomorrow. (11) Candidiasis of mouth and esophagus: Continue nystatin solution (12) DVT prophylaxis: Apixaban continue PT/OT updated by phone this evening Admission and Anticipated Discharge Date Admission Date: November 14, 2020 Subjective telemetry normal overnight; no a.fib patient's main complaint is that of b/l leg pain, right leg worse than left, from the knees down to the feet. despite recent PAD surgery her pain is largely unchanged from prior. she is concerned about her 2 toes on the right foot and "losing them." has rest pain in addition to pain with walking. it hurts to walk on either leg. denies any dyspnea today. does have mild cough. eating fair at best. Review of Systems Constitutional: no fever and no chills Respiratory: no wheezing Cardiovascular: no chest pain Gastrointestinal: no abdominal pain Physical Exam Constitutional: no acute distress and no altered mental status ENMT: Mouth: + oral mucosal abnormality (Minimal thrush plaques tongue ) Respiratory: Auscultation: + diminished lung sounds (Bases) and + crackles (Diffuse b/l) Cardiovascular: Rate/Rhythm: regular rate and regular rhythm Heart Sounds: normal S1 and normal S2 Vessels: + JVD, posterior tibial pulses present, dorsalis pedis pulses present and popliteal pulses present Extremities: normal capillary refill (B/l feet; warm to touch ) and + edema (2+ b/l ) Gastrointestinal (Abdomen): normal bowel sounds, soft, nontender, no hepatosplenomegaly Skin: ulceration right lateral foot; erythematous right 4th/5th toes; kirti intact b/l shins without evidence of cellulitis Psychiatric: A+Ox3, euthymic affect Results & Data Results & Data ([facility]) Vital Signs (Past 12 Hours) Vital Signs Temp Pulse Pulse Pulse Resp BP Pulse Ox 11/17/20 18:59 36.4 C L 82 22 125/72 91 11/17/20 15:20 36.4 C L 82 18 132/75 92 11/17/20 14:30 77 18 97 11/17/20 11:29 36.7 C 82 18 104/77 93 11/17/20 11:13 74 18 93 11/17/20 08:00 77 11/17/20 07:41 36.7 C 85 18 127/62 95 11/17/20 07:28 85 18 90 Laboratory Results Laboratory Results - last 24 hr 11/17/20 11/17/20 05:49 05:49 WBC 12.63 H RBC 3.13 L Hgb 8.9 L Hct 27.0 L MCV 86.3 MCH 28.4 MCHC 33.0 RDW Std Deviation 46.4 H RDW Coeff of Janie 14.7 H Plt Count 686 H MPV 9.3 Sodium 137 Potassium 3.7 Chloride 105 Carbon Dioxide 26 Anion Gap 6.0 BUN 27 H Creatinine 0.74 Est Cr Clr Drug Dosing 55.4 Est GFR ( Amer) 93.2 Est GFR (Non-Af Amer) 80.4 BUN/Creatinine Ratio 36.3 H Glucose 106 H Calcium 9.7 Magnesium 1.7 L NT-Pro-B Natriuret Pep 87056 H Specimen Hemolysis PG Care Time/CCT Total # of Minutes Spent Total Time Spent with Patient: Total time spent is greater than 50% in coordination of care (as documented) at patient's floor/unit and/or counseling patient: Coding Level of Care Code 54065 Subseq Hosp Care Lvl 3 Diagnoses Acute combined systolic and diastolic heart failure I50.41 Acute respiratory failure with hypoxia J96.01 Atrial fibrillation with rapid ventricular response I48.91 Peripheral arterial disease I73.9 Osteomyelitis M86.9 Depression F32.9 RLS (restless legs syndrome) G25.81 Anemia D64.9 Peripheral neuropathy G62.9 Peripheral neuropathy type: polyneuropathy, unspecified COPD exacerbation J44.1 Candidiasis of mouth and esophagus B37.81; B37.0 DVT prophylaxis Z29.9 (1) Peripheral neuropathy Peripheral neuropathy type: polyneuropathy, unspecified Qualified Code(s): G62.9 - Polyneuropathy, unspecified
[2020-11-17] MEDS: ERTAPENEM SODIUM 1,000 MG in SODIUM CHLORIDE 0.9% 50 ML IV SCH (20:21)
[2020-11-17] MEDS: ACETAMINOPHEN 325 MG TAB PO PRN (20:21)
[2020-11-17] MEDS: PRAMIPEXOLE DIHYDROCHLO 0.25 MG TAB PO SCH (20:21)
[2020-11-18] MEDS: VANCOMYCIN HCL 750 MG in SODIUM CHLORIDE 0.9% 250 ML IV SCH ×2 (01:14→13:48)
[2020-11-18] MEDS: ALBUT/IPRATROP 3MG/0.5MG NEB 3 ML VIAL NEB PRN (03:23)
[2020-11-18 07:24] LABS: Blood Urea Nitrogen 28 mg/dl (7-18); Carbon Dioxide 27 mmol/L (21-32); Chloride 105 mmol/L (98-107); Sodium 138 mmol/L (136-145)
[2020-11-18] MEDS: ALBUT/IPRATROP 3MG/0.5MG NEB 3 ML VIAL NEB SCH ×4 (07:24→19:57)
[2020-11-18 07:25] LABS: BUN Creatinine Ratio 40.8 (10-20); C Reactive Protein 1.75 mg/dl (0-0.29); Creatinine Clr Calc Pharmacy 59.4 ml/min; Est GFR (African American) 100.1; Est GFR (Non-African American) 86.4; Ferritin 154.6 ng/ml (8-388); Glucose 87 mg/dl (70-99); Transferrin 213 mg/dl (200-360)
[2020-11-18] MEDS: APIXABAN 5 MG TABLET PO SCH ×2 (07:44→20:38)
[2020-11-18] MEDS: METOPROLOL SUCC 50MG EXT REL TAB PO SCH (07:44)
[2020-11-18] MEDS: POTASSIUM CHLORIDE CRTAB 20 MEQ TABCR PO SCH ×3 (07:44→20:36)
[2020-11-18] MEDS: PANTOprazole 40 MG TAB PO SCH (07:45)
[2020-11-18] MEDS: SACCHAROMYCES BOULARDII 250 MG CAP PO SCH (07:46)
[2020-11-18] MEDS: ASPIRIN 81 MG ECTAB PO SCH (07:46)
[2020-11-18] MEDS: predniSONE 20 MG TAB PO SCH (07:48)
[2020-11-18] MEDS: ATORVASTATIN 40 MG TAB PO SCH (07:48)
[2020-11-18] MEDS: NYSTATIN SUSP 500,000 U/5 ML UDC PO SCH ×4 (07:49→20:37)
[2020-11-18] MEDS: GABAPENTIN 100 MG CAP PO SCH ×3 (07:50→20:36)
[2020-11-18 08:03] LABS: Potassium 3.5 mmol/L (3.5-5.1)
[2020-11-18 08:08] LABS: Magnesium 2.1 mg/dl (1.8-2.4)
[2020-11-18] MEDS: FUROSEMIDE 40 MG in SYRINGE 0 ML IV SCH ×2 (08:43→17:34)
[2020-11-18 08:52] LABS: Folate (Folic Acid) 15.7 ng/ml (>5.38)
--- NOTE | 2020-11-18 10:57 | Heart Failure Progress Note ---
Date of Service November 18, 2020 Assessment & Plan (1) Heart failure with mid-range ejection fraction: (2) COPD exacerbation: (3) Peripheral arterial disease: (4) Hypertension: (5) Atrial fibrillation with rapid ventricular response: Heart failure with mid-range ejection fraction: Currently NYHA Class III symptoms. She denies previous history of CHF or COPD. Potentially iatrogenic volume overload from her recent surgery vs tachycardia induced. She continues to examine hypervolemic. Chest x-ray and BNP support evidence of such. Agree with continued diuresis- Lasix 40 mg IV BID. Kidney function and electrolytes remain stable- continue to monitor. Continue low sodium diet. Strict I&Os while inpatient. Continue daily standing weights. Dry weight seems to be around 120- 125 lb according to the chart and her home weights. She's likely 10-15 lb above her dry weight at this time. We discussed the nature of heart failure and the goals of the program. She is agreeable to participation. Cardiomyopathy: Left ventricular systolic function mildly reduced on echo, 45- 50%. Etiology unclear- potentially from tachycardia as she presented in atrial fibrillation. Rate is now adequately controlled and she is back in sinus rhythm. Continue Metoprolol succinate 50 mg daily. Home med list includes Lisinopril, likely held on admission. Would consider resuming on discharge if BP and kidney function adequate. Atrial fibrillation: Patient presented in afib with RVR. She converted to sinus in the ED. Rate is currently well controlled with beta jamilah. Continue Eliquis 5 mg BID for primary prevention. Hypertension: Well controlled. Continue current therapy. COPD: Presumed. Potentially a contributing factor to her ongoing dyspnea and wheezing. Continue nebs/steroids. Patient recently quit smoking. Continued cessation recommended. Would recommend outpatient PFTs if not improved with diuretics alone. PAD: S/p right femoral to anterior tibial composite reverse saphenous vein bypass with harvesting of the left great saphenous vein with Dr. Robin on 11/06. Disposition: Enroll in [facility] heart [place] program. Will continue to follow during hospitalization. Anticipate close follow up on discharge. Admission and Anticipated Discharge Date Admission Date: November 14, 2020 Subjective Patient appears to be improving today. Her breathing is less labored and she appears more comfortable this morning. She remains on supplemental O2, 4 L. She is having lower extremity pain. Edema noted but improved. She is laying flat at the time of my visit without orthopnea or PND. Confirmed she had a standing weight today at 134 lb. She's net negative 1 L but I&Os are likely inaccurate per nursing. Physical Exam Physical Exam: General: No acute distress, comfortable. HEENT: Head is normal. Sclerae anicteric Neck: Supple, + JVD. Lungs: Normal respiratory effort. Diffuse bilateral crackles, faint expiratory wheeze. Cardiac: Regular rate and rhythm. S1-S2 normal. No appreciable murmur, gallop or rub. Abdomen: Soft and nontender. Bowel sounds normal. No mass or organomegaly. Extremities: Bilateral medial surgical incisions, healing well, no erythema/drainage, kirti intact. 1-2+ bilateral pitting edema. Dressing noted over the lateral aspect of the RLE. Neurologic: Nonfocal Psychiatric: Affect appropriate. Alert and oriented. Results & Data ([facility]) Vital Signs (Past 12 Hours) Vital Signs Temp Pulse Pulse Pulse Resp BP BP 11/18/20 07:59 98.4 F 11/18/20 07:48 90 121/69 11/18/20 07:25 79 18 11/18/20 03:24 77 18 11/18/20 03:15 97.5 F L 82 16 142/76 H 11/18/20 00:59 74 11/17/20 23:32 97.9 F 75 16 128/73 Pulse Ox 11/18/20 07:59 11/18/20 07:48 94 11/18/20 07:25 93 11/18/20 03:24 90 11/18/20 03:15 93 11/18/20 00:59 11/17/20 23:32 93 PG Care Time/CCT Total # of Minutes Spent Total Time Spent with Patient: Total time spent is greater than 50% in coordination of care (as documented) at patient's floor/unit and/or counseling patient: Heart Failure Data/Metrics Heart Failure Type: Diastolic Evidenced Based Beta Jamilah Therapy Beta Jamilah Therapy: Not Indicated SAMY/ARB/ARNI Therapy SAMY/ARB/ARNI Therapy: Not Indicated Aldosterone Antagonist Therapy Aldosterone Antagonist Therapy: Not Indicated Coding Level of Care Code 36625 Subseq Hosp Care Lvl 3 Diagnoses Heart failure with mid-range ejection fraction I50.9 COPD exacerbation J44.1 Peripheral arterial disease I73.9 Hypertension I10 Atrial fibrillation with rapid ventricular response I48.91
--- NOTE | 2020-11-18 12:01 | Pharmacy Report ---
Pharmacy Abx Dose Short Note - Date of Service November 18, 2020 - Assessment & Plan Assessment * 75 year old F receiving ertapenem and vancomycin for treatment of osteomyelitis. [facility] recommended vanc/ertapenem x 6 weeks. (End date: 01/14/2021) * Recent admission 11/04/20 - 11/13/20. Discharged to [facility] on 11/13/20 * Blood cultures 11/14 negative * SCr with very slight trend up 11/14 to 11/17 (0.52, 0.56, 0.66, 0.74 mg/dL, but decreased slightly today to 0.69 mg/dL) Vancomycin * Goal trough 15-20 mcg/mL * Initial trough on 11/15 therapeutic at 18 mcg/mL while patient was continued on outpatient dose of 750 mg IV q12h * Repeat trough today supratherapeutic at 26.5 mcg/mL * Etiology of notable increase in trough possibly due to worsening renal function, although increase in SCr has been mild. However, patient is not at risk for accumulation 2nd BMI and levels and doses were obtained/administered at the appropriate times, therefore alternative explanations to increase in trough are not clear * Either way, will decrease vancomycin dose and repeat trough in 48 hours Plan * Decrease vancomycin to 750 mg IV q16h * Trough 11/20 @ 1330 Pharmacy will continue to follow and will adjust dose/frequency as necessary. Thank you.
[2020-11-18] MEDS ORDERED: VANCOMYCIN TROUGH ONE (13:30)
[2020-11-18] MEDS: oxyCODONE HCL IR 5 MG TAB (IMMEDIATE RELEASE) PO PRN (13:49)
--- NOTE | 2020-11-18 19:55 | Hospitalist Progress Note ---
Date of Service November 18, 2020 Assessment & Plan (1) Acute combined systolic and diastolic heart failure: improving. cont lasix 40mg IV BID. etiology- tachyarrhythmia? was in rapid a.fib upon admission. other? ischemic? continue metoprolol xl. ideally will need low-dose SAMY or ARB. repeat labs in am. CHF clinic consult appreciated. (2) Acute respiratory failure with hypoxia: Likely combination of acute CHF and COPD exacerbation. Doubt infectious etiology. overall improving albeit slowly. Diurese. cont Steroids but lower dose to 30mg/day starting 11/19. Nebs. (3) Atrial fibrillation with rapid ventricular response: New onset. Resolved while awaiting admission in ER. Remains in NSR. Cont metoprolol xl. Continue eliquis BID. (4) Peripheral arterial disease: S/p right femoral to anterior tibial composite reverse saphenous vein bypass with harvesting of the left great saphenous vein with Dr. Robin on 11/06/2020. Continue aspirin and apixaban Continue statin Good pulses and perfusion on exam once again today. Needs vascular f/u in about 1 week. (5) Osteomyelitis: Concern for osteomyelitis of right foot. Right Foot MRI on 11/04 was an extremely poor study and equivocal for osteomyelitis however. [id number]ertap[facility] x 6 weeks. (End date: 01/14/2021). RUE PICC line in place. inflammatory markers improved today. (6) Depression: - Continue home trazodone - Ativan SL PRN for anxiety (7) RLS (restless legs syndrome): Continue home pramipexole Fe studies acceptable (8) Anemia: b12, folate, iron studies acceptable likely anemia of chronic disease (9) Peripheral neuropathy: improved with increase in gabapentin to 200mg TID. Consider addition of cymbalta. b12 level wnl. Cont oxycodone 7.5mg q6h prn. (10) COPD exacerbation: Continue prednisone, nebs, supportive care. Wean prednisone to 30mg/day in am. (11) Candidiasis of mouth and esophagus: Continue nystatin solution Improving/resolving (12) DVT prophylaxis: Apixaban continue PT/OT updated by phone yesterday son updated at bedside today Admission and Anticipated Discharge Date Admission Date: November 14, 2020 Subjective patient's breathing a bit better today b/l leg pain better today as well denies pain in right foot/toes eating fair tele overnight - NSR son at bedside today - questions answered no new complaints Review of Systems Constitutional: no fever and no chills Respiratory: + cough; no dyspnea and no hemoptysis Cardiovascular: + edema; no chest pain and no orthopnea Gastrointestinal: no abdominal pain, no nausea and no vomiting Physical Exam Constitutional: no acute distress and no altered mental status ENMT: external ear and nose normal, oropharynx normal (thrush resolved ) Respiratory: Auscultation: + diminished lung sounds (Bases) and + crackles (b/l bases - improved) Cardiovascular: Rate/Rhythm: regular rate and regular rhythm Heart Sounds: normal S1 and normal S2 Vessels: + JVD, posterior tibial pulses present, dorsalis pedis pulses present and popliteal pulses present Extremities: normal capillary refill (B/l feet; warm to touch ) and + edema (1-2+ b/l ) Gastrointestinal (Abdomen): normal bowel sounds, soft, nontender, no hepatosplenomegaly Skin: healing ulceration side of right 5th toe; dry skin both feet; kirti b/l legs c/d/i; no drainage. onychomycosis/dystrophic nails b/l feet, especially right 4th toe Psychiatric: A+Ox3, euthymic affect Results & Data Results & Data ([facility]) Vital Signs (Past 12 Hours) Vital Signs Temp Pulse Pulse Resp BP Pulse Ox 11/18/20 19:11 36.4 C L 82 20 114/70 93 11/18/20 16:00 90 11/18/20 15:28 36.4 C L 82 20 108/66 93 11/18/20 14:46 79 14 98 11/18/20 11:43 36.5 C 76 22 115/73 92 11/18/20 10:53 75 18 93 11/18/20 07:59 36.9 C Laboratory Results Laboratory Results - last 24 hr 11/18/20 11/18/20 11/18/20 06:03 06:03 06:11 ESR 21 Sodium 138 Potassium Chloride 105 Carbon Dioxide 27 Anion Gap 6.0 BUN 28 H Creatinine 0.69 Est Cr Clr Drug Dosing 59.4 Est GFR ( Amer) 100.1 Est GFR (Non-Af Amer) 86.4 BUN/Creatinine Ratio 40.8 H Glucose 87 Calcium 9.0 Magnesium TNP Iron Transferrin 213 Transferrin % Sat Ferritin 154.6 C-Reactive Protein 1.75 H Vitamin B12 Cancelled Folate Cancelled Vancomycin Trough 11/18/20 11/18/20 11/18/20 06:11 07:34 07:34 ESR Sodium Potassium 3.5 Chloride Carbon Dioxide Anion Gap BUN Creatinine Est Cr Clr Drug Dosing Est GFR ( Amer) Est GFR (Non-Af Amer) BUN/Creatinine Ratio Glucose Calcium Magnesium 2.1 Iron 31 L Transferrin Transferrin % Sat Ferritin C-Reactive Protein Cancelled Vitamin B12 791 Folate 15.70 Vancomycin Trough 11/18/20 13:38 ESR Sodium Potassium Chloride Carbon Dioxide Anion Gap BUN Creatinine Est Cr Clr Drug Dosing Est GFR ( Amer) Est GFR (Non-Af Amer) BUN/Creatinine Ratio Glucose Calcium Magnesium Iron Transferrin Transferrin % Sat Ferritin C-Reactive Protein Vitamin B12 Folate Vancomycin Trough 26.5 PG Care Time/CCT Total # of Minutes Spent Total Time Spent with Patient: Total time spent is greater than 50% in coordination of care (as documented) at patient's floor/unit and/or counseling patient: Coding Level of Care Code 20107 Subseq Hosp Care Lvl 2 Diagnoses Acute combined systolic and diastolic heart failure I50.41 Acute respiratory failure with hypoxia J96.01 Atrial fibrillation with rapid ventricular response I48.91 Peripheral arterial disease I73.9 Osteomyelitis M86.9 Depression F32.9 RLS (restless legs syndrome) G25.81 Anemia D64.9 Peripheral neuropathy G62.9 Peripheral neuropathy type: polyneuropathy, unspecified COPD exacerbation J44.1 Candidiasis of mouth and esophagus B37.81; B37.0 DVT prophylaxis Z29.9 (1) Peripheral neuropathy Peripheral neuropathy type: polyneuropathy, unspecified Qualified Code(s): G62.9 - Polyneuropathy, unspecified
[2020-11-18] MEDS: PRAMIPEXOLE DIHYDROCHLO 0.25 MG TAB PO SCH (20:37)
[2020-11-18] MEDS: LORazepam 0.5 MG TAB SL PRN (20:42)
[2020-11-18] MEDS: traZODone HCL 50 MG TAB PO PRN (20:42)
[2020-11-18] MEDS: ERTAPENEM SODIUM 1,000 MG in SODIUM CHLORIDE 0.9% 50 ML IV SCH (20:43)
[2020-11-19] MEDS: ALBUT/IPRATROP 3MG/0.5MG NEB 3 ML VIAL NEB PRN (02:23)
[2020-11-19] MEDS ORDERED: VANCOMYCIN HCL 750 MG in SODIUM CHLORIDE 0.9% 250 ML IV SCH (06:00)
[2020-11-19 07:14] LABS: BUN Creatinine Ratio 47.4 (10-20); Calcium 9.6 mg/dl (8.5-10.1); Creatinine Clr Calc Pharmacy 52.9 ml/min; Est GFR (African American) 88.8; Est GFR (Non-African American) 76.6; Potassium 4.1 mmol/L (3.5-5.1)
[2020-11-19] MEDS: ALBUT/IPRATROP 3MG/0.5MG NEB 3 ML VIAL NEB SCH ×4 (07:20→19:01)
--- NOTE | 2020-11-19 07:25 | Pharmacy Report ---
Pharmacy Abx Dose Short Note - Date of Service November 19, 2020 - Assessment & Plan Assessment * 75 year old F receiving ertapenem and vancomycin for treatment of osteomyelitis. [facility] recommended vanc/ertapenem x 6 weeks. (End date: 01/14/2021) * Recent admission 11/04/20 - 11/13/20. Discharged to [facility] on 11/13/20 * Blood cultures 11/14 negative * SCr with very slight trend up 11/14 to 11/17 (0.52, 0.56, 0.66, 0.74 mg/dL, but decreased slightly on 11/18 to 0.69 mg/dL. SCr now again with slight elevation up to 0.77 mg/dL Vancomycin * Goal trough 15-20 mcg/mL * Initial trough on 11/15 therapeutic at 18 mcg/mL while patient was continued on outpatient dose of 750 mg IV q12h * Repeat trough yesterday supratherapeutic at 26.5 mcg/mL * Etiology of notable increase in trough possibly due to worsening renal function, although increase in SCr has been mild. However, patient is not at risk for accumulation 2nd BMI and levels and doses were obtained/administered at the appropriate times, therefore alternative explanations to increase in trough are not clear * Vancomycin dose was decreased and repeat trough in 48 hours. However, with increase in SCr again today, will hold all further vancomycin and obtain a repeat trough at what would have been prior to the 3rd dose of the new regimen Plan * Hold vancomycin for now pending evaluation of level later today * Trough 11/19 @ 2130 Pharmacy will continue to follow and will adjust dose/frequency as necessary. Thank you.
[2020-11-19] MEDS: predniSONE 10 MG TABLET PO SCH (09:05)
[2020-11-19] MEDS: FUROSEMIDE 40 MG in SYRINGE 0 ML IV SCH ×2 (09:05→16:27)
[2020-11-19] MEDS: METOPROLOL SUCC 50MG EXT REL TAB PO SCH (09:05)
[2020-11-19] MEDS: ASPIRIN 81 MG ECTAB PO SCH (09:05)
[2020-11-19] MEDS: PANTOprazole 40 MG TAB PO SCH (09:05)
[2020-11-19] MEDS: NYSTATIN SUSP 500,000 U/5 ML UDC PO SCH ×4 (09:05→20:36)
[2020-11-19] MEDS: ATORVASTATIN 40 MG TAB PO SCH (09:05)
[2020-11-19] MEDS: APIXABAN 5 MG TABLET PO SCH ×2 (09:06→20:36)
[2020-11-19] MEDS: POTASSIUM CHLORIDE CRTAB 20 MEQ TABCR PO SCH ×2 (09:06→20:36)
[2020-11-19] MEDS: GABAPENTIN 300 MG CAP PO SCH ×3 (09:06→20:36)
[2020-11-19] MEDS: SACCHAROMYCES BOULARDII 250 MG CAP PO SCH (09:06)
[2020-11-19] MEDS: oxyCODONE HCL IR 5 MG TAB (IMMEDIATE RELEASE) PO PRN (10:24)
--- NOTE | 2020-11-19 13:08 | Heart Failure Progress Note ---
Date of Service November 19, 2020 Assessment & Plan (1) Heart failure with mid-range ejection fraction: (2) COPD exacerbation: (3) Peripheral arterial disease: (4) Hypertension: (5) Atrial fibrillation with rapid ventricular response: Heart failure with mid-range ejection fraction: Currently NYHA Class III symptoms. She denies previous history of CHF or COPD. Potentially iatrogenic volume overload from her recent surgery vs tachycardia induced. There is likely also be a primary pulmonary process contributing to her dyspnea. She continues to examine hypervolemic. Agree with continued diuresis- Lasix 40 mg IV BID. BUN slightly elevated but creatinine stable- continue to monitor. Continue low sodium diet. Strict I&Os while inpatient. Continue daily standing weights. Fluid restriction. Dry weight seems to be around 120-125 lb according to the chart and her home weights. She's likely 10-15 lb above her dry weight at this time. We discussed the nature of heart failure and the goals of the program. She is agreeable to participation. Cardiomyopathy: Left ventricular systolic function mildly reduced on echo, 45- 50%. Etiology unclear- potentially from tachycardia as she presented in atrial fibrillation. Rate is now adequately controlled and she is back in sinus rhythm. Continue Metoprolol succinate 50 mg daily. Home med list includes Lisinopril, likely held on admission. Would consider resuming on discharge if BP and kidney function adequate. Atrial fibrillation: Patient presented in afib with RVR. She converted to sinus in the ED. Rate is currently well controlled with beta jamilah. Continue Eliquis 5 mg BID for primary prevention. Hypertension: Well controlled. Continue current therapy. Resume Lisinopril when able. COPD: Presumed. Potentially a contributing factor to her ongoing dyspnea and wheezing. Continue nebs/steroids. Patient recently quit smoking. Continued cessation recommended. Would recommend outpatient PFTs if not improved once volume is optimized. PAD: S/p right femoral to anterior tibial composite reverse saphenous vein bypass with harvesting of the left great saphenous vein with Dr. Robin on 11/06/2020. Disposition: Enroll in [facility] heart failure program. Will continue to follow during hospitalization. Anticipate close follow up on discharge. Admission and Anticipated Discharge Date Admission Date: November 14, 2020 Subjective Patient appears stable today. Her breathing is slightly better. She remains on supplemental O2, 4 L. She is having lower extremity pain. Edema noted. She is laying flat at the time of my visit without orthopnea or PND. Confirmed she had a standing weight today at 133 lb. She had a good diuresis overnight, -1.5 L. She's net negative 2.2 L this admission. Physical Exam Physical Exam: General: No acute distress, comfortable. HEENT: Head is normal. Sclerae anicteric Neck: Supple, + JVD. Lungs: Normal respiratory effort. Diffuse bilateral crackles, faint expiratory wheeze. Cardiac: Regular rate and rhythm. S1-S2 normal. No appreciable murmur, gallop or rub. Abdomen: Soft and nontender. Bowel sounds normal. No mass or organomegaly. Extremities: Bilateral medial surgical incisions, healing well, no erythema/drainage, kirti intact. 1-2+ bilateral pitting edema. Dressing noted over the lateral aspect of the RLE. Neurologic: Nonfocal Psychiatric: Affect appropriate. Alert and oriented. Results & Data ([facility]) Vital Signs (Past 12 Hours) Vital Signs Temp Pulse Pulse Pulse Resp BP Pulse Ox 11/19/20 11:10 82 18 88 L 11/19/20 08:00 83 11/19/20 07:59 98.4 F 88 16 142/63 H 95 11/19/20 07:20 80 16 90 11/19/20 03:48 98.2 F 80 17 137/77 90 11/19/20 02:24 80 18 90 PG Care Time/CCT Total # of Minutes Spent Total Time Spent with Patient: Total time spent is greater than 50% in coordination of care (as documented) at patient's floor/unit and/or counseling patient: Heart Failure Data/Metrics Heart Failure Type: Diastolic Evidenced Based Beta Jamilah Therapy Beta Jamilah Therapy: Not Indicated SAMY/ARB/ARNI Therapy SAMY/ARB/ARNI Therapy: Not Indicated Aldosterone Antagonist Therapy Aldosterone Antagonist Therapy: Not Indicated Coding Level of Care Code 95430 Subseq Hosp Care Lvl 3 Diagnoses Heart failure with mid-range ejection fraction I50.9 COPD exacerbation J44.1 Peripheral arterial disease I73.9 Hypertension I10 Atrial fibrillation with rapid ventricular response I48.91
--- NOTE | 2020-11-19 19:31 | Hospitalist Progress Note ---
Date of Service November 19, 2020 Assessment & Plan (1) Acute combined systolic and diastolic heart failure: continues to improve. cont lasix 40mg IV BID. stable creatinine. stable electrolytes. weights slowly improving. etiology- tachyarrhythmia? was in rapid a.fib upon admission. other? ischemic? continue metoprolol xl. ideally will need low-dose SAMY or ARB. repeat labs again in am. CHF clinic consult and recs appreciated. (2) Acute respiratory failure with hypoxia: Likely combination of acute CHF and COPD exacerbation. Doubt infectious etiology. overall improving. Diurese. cont Steroids - tapering to 30mg daily today. taper every 48 hours. Nebs/supportive care. (3) Atrial fibrillation with rapid ventricular response: New onset. Resolved while awaiting admission in ER. Remains in NSR. Cont metoprolol xl. Continue eliquis BID. (4) Peripheral arterial disease: S/p right femoral to anterior tibial composite reverse saphenous vein byp ass with harvesting of the left great saphenous vein with Dr. Robin on 11/06/2020. Continue aspirin and apixaban Continue statin Continues with very good pulses and perfusion on exam. [place] from surgery intact and clean. Needs vascular f/u soon. Will contact them during this stay. (5) Osteomyelitis: Concern for osteomyelitis of right foot. Right Foot MRI on 11/04 was an extremely poor study and equivocal for osteomyelitis however. [id number], [facility] recommended vanc/ertapenem x 6 weeks. (End date: 01/14/2021). RUE PICC line in place. Recent inflammatory markers improved. No fever/other infectious symptoms. (6) Depression: - Continue home trazodone - Ativan SL PRN for anxiety (7) RLS (restless legs syndrome): Continue home pramipexole Fe studies acceptable (8) Anemia: b12, folate, iron studies acceptable likely anemia of chronic disease (9) Peripheral neuropathy: improved with increase in gabapentin to 300mg TID. Consider addition of cymbalta. b12 level wnl. Cont oxycodone 7.5mg q6h prn. (10) COPD exacerbation: Continue prednisone, nebs, supportive care. Wean prednisone to 30mg today. (11) Candidiasis of mouth and esophagus: Continue nystatin solution Resolved (12) DVT prophylaxis: Apixaban continue PT/OT updated by phone earlier this week son updated at bedside the last 2 days progressing overall Admission and Anticipated Discharge Date Admission Date: November 14, 2020 Subjective tele overnight with NSR patient continues to feel better denies significant dyspnea today b/l leg pain is overall doing well son was at bedside; again we heavily discussed the CHF, causes of such, ongoing plan Review of Systems Constitutional: no fever, no chills and no anorexia Respiratory: + dyspnea on exertion; no cough Cardiovascular: no chest pain Gastrointestinal: no abdominal pain and no diarrhea/loose stools Physical Exam Constitutional: no acute distress and no altered mental status ENMT: external ear and nose normal, oropharynx normal (thrush resolved ) Respiratory: Auscultation: + diminished lung sounds (Bases), + crackles (b/l bases - again improved), + wheezes and + bronchovesicular breath sounds (faint, end-exp) Cardiovascular: Rate/Rhythm: regular rate and regular rhythm Heart Sounds: normal S1 and normal S2 Vessels: + JVD, posterior tibial pulses present, dorsalis pedis pulses present and popliteal pulses present Extremities: n ormal capillary refill (B/l feet; warm to touch ) and + edema (1+ b/l ) Gastrointestinal (Abdomen): normal bowel sounds, soft, nontender, no hepatosplenomegaly Skin: ulceration right lateral foot clean, covered w/ dressing; b/l leg kirti c/d/i and well-approximated Psychiatric: A+Ox3, euthymic affect Results & Data Results & Data ([facility]) Vital Signs (Past 12 Hours) Vital Signs Temp Pulse Pulse Pulse Resp BP Pulse Ox 11/19/20 19:23 36.4 C L 85 18 114/72 94 11/19/20 19:01 81 20 90 11/19/20 17:00 76 11/19/20 15:50 36.5 C 78 19 128/74 95 11/19/20 15:35 81 18 96 11/19/20 11:10 82 18 88 L 11/19/20 08:00 83 11/19/20 07:59 36.9 C 88 16 142/63 H 95 Laboratory Results Laboratory Results - last 24 hr 11/19/20 06:26 Sodium 138 Potassium 4.1 D Chloride 105 Carbon Dioxide 26 Anion Gap 7.0 BUN 36 H Creatinine 0.77 Est Cr Clr Drug Dosing 52.9 Est GFR ( Amer) 88.8 Est GFR (Non-Af Amer) 76.6 BUN/Creatinine Ratio 47.4 H Glucose 110 H Calcium 9.6 PG Care Time/CCT Total # of Minutes Spent Total Time Spent with Patient: Total time spent is greater than 50% in coordin ation of care (as documented) at patient's floor/unit and/or counseling patient: Coding Level of Care Code 62463 Subseq Hosp Care Lvl 3 Diagnoses Acute combined systolic and diastolic heart failure I50.41 Acute respiratory failure with hypoxia J96.01 Atrial fibrillation with rapid ventricular response I48.91 Peripheral arterial disease I73.9 Osteomyelitis M86.9 Depression F32.9 RLS (restless legs syndrome) G25.81 Anemia D64.9 Peripheral neuropathy G62.9 Peripheral neuropathy type: polyneuropathy, unspecified COPD exacerbation J44.1 Candidiasis of mouth and esophagus B37.81; B37.0 DVT prophylaxis Z29.9 (1) Peripheral neuropathy Peripheral neuropathy type: polyneuropathy, unspecified Qualified Code(s): G62.9 - Polyneuropathy, unspecified
[2020-11-19] MEDS: PRAMIPEXOLE DIHYDROCHLO 0.25 MG TAB PO SCH (20:35)
[2020-11-19] MEDS: ERTAPENEM SODIUM 1,000 MG in SODIUM CHLORIDE 0.9% 50 ML IV SCH (20:35)
[2020-11-20] MEDS: VANCOMYCIN HCL 750 MG in SODIUM CHLORIDE 0.9% 250 ML IV SCH ×2 (04:01→21:12)
[2020-11-20] MEDS: ALBUT/IPRATROP 3MG/0.5MG NEB 3 ML VIAL NEB SCH (07:14)
[2020-11-20 07:37] LABS: Creatinine Clr Calc Pharmacy 58.8 ml/min; Est GFR (African American) 100.1; Est GFR (Non-African American) 86.4
[2020-11-20 07:38] LABS: BUN Creatinine Ratio 44.1 (10-20); Calcium 9.9 mg/dl (8.5-10.1); Creatinine Clr Calc Pharmacy 54.8 ml/min; Est GFR (African American) 93.2; Est GFR (Non-African American) 80.4; Magnesium 1.9 mg/dl (1.8-2.4)
[2020-11-20] MEDS: APIXABAN 5 MG TABLET PO SCH ×2 (08:38→20:05)
[2020-11-20] MEDS: ASPIRIN 81 MG ECTAB PO SCH (08:38)
[2020-11-20] MEDS: POTASSIUM CHLORIDE CRTAB 20 MEQ TABCR PO SCH ×2 (08:39→20:05)
[2020-11-20] MEDS: FUROSEMIDE 40 MG in SYRINGE 0 ML IV SCH ×2 (08:39→16:47)
[2020-11-20] MEDS: ATORVASTATIN 40 MG TAB PO SCH (08:39)
[2020-11-20] MEDS: GABAPENTIN 300 MG CAP PO SCH ×3 (08:40→20:05)
[2020-11-20] MEDS: NYSTATIN SUSP 500,000 U/5 ML UDC PO SCH ×4 (08:40→20:05)
[2020-11-20] MEDS: PANTOprazole 40 MG TAB PO SCH (08:41)
[2020-11-20] MEDS: predniSONE 10 MG TABLET PO SCH (08:41)
[2020-11-20] MEDS: SACCHAROMYCES BOULARDII 250 MG CAP PO SCH (08:41)
[2020-11-20] MEDS: METOPROLOL SUCC 50MG EXT REL TAB PO SCH (08:41)
[2020-11-20] MEDS: oxyCODONE HCL IR 5 MG TAB (IMMEDIATE RELEASE) PO PRN (08:47)
--- NOTE | 2020-11-20 11:26 | Surgery Progress Note ---
Date of Service November 20, 2020 Assessment & Plan (1) S/P femoral-tibial bypass: Pt doing well post op, kirti removed today without dehiscence. Will see in office in another 2 weeks. Admission and Anticipated Discharge Date Admission Date: November 14, 2020 Subjective 75 yo f s/p RLE fem-ant tibial composite BPG with LLE GSV harvest, seen in f/u today. Pt is over 2 weeks post op and was to be seen in office this week for staple removal. Pt was readmitted to [facility] from [facility] for fluid overload and hypoxia. Pt states she is improving. States pain in R foot is nearly gone. Still with some pain in L foot. Looking forward to staple removal. Review of Systems Review of Systems: All systems reviewed & are unremarkable except as noted in HPI & below Physical Exam Constitutional: WD/WN, vitals as above Cardiovascular: Vessels: femoral pulses present, posterior tibial pulses present (+ dopplerable RLE, LLE no pulse) and dorsalis pedis pulses present (RLE + dopplerable, LLE no pulse); + abnormal peripheral pulses Extremities: normal capillary refill (Normal in RLE, LLE 5 seconds) and + edema (Mild edema BLE, improved from discharge) Skin: + wound (R 5th MT wound excellent granulation, 4th toe eschar demaracated/loosening.) and + incision (CDI with kirti, removed today and steri strips placed) Psychiatric: A+Ox3, euthymic affect Results & Data ([facility]) Vital Signs (Past 12 Hours) Vital Signs Temp Pulse Resp BP Pulse Ox 11/20/20 10:57 36.7 C 75 19 128/76 90 11/20/20 07:15 85 16 89 L 11/20/20 07:12 36.5 C 81 20 137/79 88 L 11/20/20 03:39 36.4 C L 80 20 139/84 86 L 11/19/20 23:44 36.6 C 81 24 132/77 89 L
[2020-11-20] MEDS ORDERED: VANCOMYCIN TROUGH ONE (13:30)
--- NOTE | 2020-11-20 16:11 | Heart Failure Progress Note ---
Date of Service November 20, 2020 Assessment & Plan (1) Heart failure with mid-range ejection fraction: (2) COPD exacerbation: (3) Peripheral arterial disease: (4) Hypertension: (5) Atrial fibrillation with rapid ventricular response: Heart failure with mid-range ejection fraction: Currently NYHA Class III symptoms. She denies previous history of CHF or COPD. Potentially iatrogenic volume overload from her recent surgery vs tachycardia induced. There is likely also be a primary pulmonary process contributing to her dyspnea. She continues to examine hypervolemic. Agree with continued diuresis- Lasix 40 mg IV BID. BUN slightly elevated but creatinine stable- continue to monitor. Continue low sodium diet. Strict I&Os while inpatient. Continue daily standing weights. Fluid restriction. Dry weight seems to be around 120-125 lb according to the chart and her home weights. She's likely 10-15 lb above her dry weight at this time. We discussed the nature of heart failure and the goals of the program. She is agreeable to participation. Cardiomyopathy: Left ventricular systolic function mildly reduced on echo, 45- 50%. Etiology unclear- potentially from tachycardia as she presented in atrial fibrillation. Rate is now adequately controlled and she is back in sinus rhythm. Continue Metoprolol succinate 50 mg daily. Home med list includes Lisinopril, likely held on admission. Would consider resuming on discharge if BP and kidney function adequate. Atrial fibrillation: Patient presented in afib with RVR. She converted to sinus in the ED. Rate is currently well controlled with beta jamilah. Continue Eliquis 5 mg BID for primary prevention. Hypertension: Well controlled. Continue current therapy. Resume Lisinopril when able. COPD: Presumed. Potentially a contributing factor to her ongoing dyspnea and wheezing. Continue nebs/steroids. Patient recently quit smoking. Continued cessation recommended. Would recommend outpatient PFTs if not improved once volume is optimized. PAD: S/p right femoral to anterior tibial composite reverse saphenous vein bypass with harvesting of the left great saphenous vein with Dr. Robin on 11/06/2020. Janet removed today. Disposition: Enroll in [facility] heart failure program. Will be away from the hospital for the weekend. Follow up scheduled for 11/26/20 at 1400. Discharge instructions have been updated. Patient anticipates discharge to [facility]. Admission and Anticipated Discharge Date Admission Date: November 14, 2020 Subjective Patient appears stable today. Her breathing is slightly better. She remains on supplemental O2, 4 L. She did not have an O2 requirement prior to admission. She is having lower extremity pain but improved. She had her janet removed this am. Edema noted, slightly improved compared to yesterday. She is laying flat at the time of my visit without orthopnea or PND. Confirmed she had a standing weight today at 132 lb. She reports good urine output. She's net negative 3.6 L this admission. Physical Exam Physical Exam: General: No acute distress, comfortable. HEENT: Head is normal. Sclerae anicteric Neck: Supple, + JVD. Lungs: Normal respiratory effort. Diffuse bilateral crackles. No wheezing. Cardiac: Regular rate and rhythm. S1-S2 normal. No appreciable murmur, gallop or rub. Abdomen: Soft and nontender. Bowel sounds normal. No mass or organomegaly. Extremities: Bilateral medial surgical incisions, healing well, no erythema/drainage, steri strips intact. 1-2+ bilateral pitting edema. Dressing noted over the lateral aspect of the RLE. Neurologic: Nonfocal Psychiatric: Affect appropriate. Alert and oriented. Results & Data ([facility]) Vital Signs (Past 12 Hours) Vital Signs Temp Pulse Resp BP Pulse Ox 11/20/20 15:19 97.5 F L 73 18 135/75 93 11/20/20 10:57 98.1 F 75 19 128/76 90 11/20/20 07:15 85 16 89 L 11/20/20 07:12 97.7 F 81 20 137/79 88 L PG Care Time/CCT Total # of Minutes Spent Total Time Spent with Patient: Total time spent is greater than 50% in coordination of care (as documented) at patient's floor/unit and/or counseling patient: Heart Failure Data/Metrics Heart Failure Type: Diastolic Evidenced Based Beta Jamilah Therapy Beta Jamilah Therapy: Not Indicated SAMY/ARB/ARNI Therapy SAMY/ARB/ARNI Therapy: Not Indicated Aldosterone Antagonist Therapy Aldosterone Antagonist Therapy: Not Indicated Coding Level of Care Code 95289 Subseq Hosp Care Lvl 3 Diagnoses Heart failure with mid-range ejection fraction I50.9 COPD exacerbation J44.1 Peripheral arterial disease I73.9 Hypertension I10 Atrial fibrillation with rapid ventricular response I48.91
[2020-11-20] MEDS: ERTAPENEM SODIUM 1,000 MG in SODIUM CHLORIDE 0.9% 50 ML IV SCH (20:05)
[2020-11-20] MEDS: PRAMIPEXOLE DIHYDROCHLO 0.25 MG TAB PO SCH (20:05)
[2020-11-20] MEDS: LORazepam 0.5 MG TAB SL PRN (23:38)
[2020-11-21 07:21] LABS: Hematocrit (blood only) 28.5 % (37-47); Hemoglobin 9.2 g/dL (12.0-16.0); Mean Corpuscular Hemoglobin 28.1 pg (25-34); Mean Corpuscular Hgb Conc 32.3 g/dL (32-36); Mean Corpuscular Volume 87.2 fL (80-100); Mean Platelet Volume 9.7 fL (7.4-10.4); Platelet Count 666 K/uL (130-400); RDW Coefficient of Variation 15.3 % (11.5-14.5); RDW Standard Deviation 48.1 fL (36.4-46.3); Red Blood Count 3.27 M/uL (4.2-5.4); White Blood Count 14.38 K/uL (4.8-10.8)
--- NOTE | 2020-11-21 07:37 | Hospitalist Progress Note ---
Date of Service November 20, 2020 Assessment & Plan (1) Acute combined systolic and diastolic heart failure: ongoing but continues to improve. cont lasix 40mg IV BID. stable creatinine. stable electrolytes. weights slowly improving. etiology- tachyarrhythmia? was in rapid a.fib upon admission. other? ischemic? LBBB-related? continue metoprolol xl. ideally will need low-dose SAMY or ARB. defer for now. CHF clinic consult and recs appreciated. (2) Acute respiratory failure with hypoxia: Likely combination of acute CHF and COPD exacerbation. Doubt infectious etiology. overall improving but still with considerable rales on exam. Diurese. cont Steroids; no taper today. Nebs/supportive care. if still with significant O2 requirement obtain noncontrast chest CT. (3) Atrial fibrillation with rapid ventricular response: New onset. Resolved while awaiting admission in ER. Remains in NSR. Cont metoprolol xl. Continue eliquis BID. (4) Peripheral arterial disease: S/p right femoral to anterior tibial composite reverse saphenous vein bypass with harvesting of the left great saphenous vein with Dr. Robin on 11/06/2020. [place] removed today. Continue aspirin and apixaban Continue statin Continues with very good pulses and perfusion on exam. (5) Osteomyelitis: Concern for osteomyelitis of right foot. Right Foot MRI on 11/04 was an extremely poor study and equivocal for osteomyelitis however. [id number], Garry MONTGOMERY recommended vanc/ertapenem x 6 weeks. (End date: 01/14/2021). RUE PICC line in place. Recent inflammatory markers improved. No fever/other infectious symptoms. Ulceration side of right foot -- I spoke with nursing; going to try gel foam to get bleeding to stop from the ulcer. Ulcer is clean. (6) Depression: - Continue home trazodone - Ativan SL PRN for anxiety (7) RLS (restless legs syndrome): Continue home pramipexole Fe studies acceptable (8) Anemia: b12, folate, iron studies acceptable likely anemia of chronic disease recheck cbc in am (9) Peripheral neuropathy: improved with increase in gabapentin to 300mg TID. Consider addition of cymbalta. b12 level wnl. Cont oxycodone 7.5mg q6h prn. (10) COPD exacerbation: Continue prednisone, nebs, supportive care. No wean in steroids today. (11) Candidiasis of mouth and esophagus: Continue nystatin solution Resolved (12) DVT prophylaxis: Apixaban continue PT/OT updated by phone earlier this week son updated at bedside the last 3 days his concerns were relayed to the charge nurse of the unit today progressing overall Admission and Anticipated Discharge Date Admission Date: November 14, 2020 Subjective patient's breathing again is better today. kirti removed by Kimberly Chan from vascular. right foot ulcer cleaned by wound care. it has been oozing blood since earlier today. has had several incontinent bowel movements today/yesterday. large volume, liquid at times. no abd pain, nausea/emesis. eating fair. leg pains improved. able to weight bear comfortably. son at bedside - he is displeased with the care his mother has received over the last 24 hours. when she had incontinence of stool he feels it took too long for her to get cleaned up. Review of Systems Constitutional: no fever and no chills Respiratory: + dyspnea on exertion; no cough and no dyspnea Cardiovascular: + edema; no chest pain and no orthopnea Gastrointestinal: no abdominal pain Physical Exam Constitutional: no acute distress and no altered mental status ENMT: external ear and nose normal, oropharynx normal (thrush resolved ) Respiratory: Auscultation: + diminished lung sounds (Bases) and + crackles (b/l bases; also heard b/l anterior chest ); no wheezes Cardiovascular: Rate/Rhythm: regular rate and regular rhythm Heart Sounds: normal S1 and normal S2 Vessels: + JVD, posterior tibial pulses present, dorsalis pedis pulses present and popliteal pulses present Extremities: normal capillary refill (B/l feet; warm to touch ) and + edema (1+ b/l ) Gastrointestinal (Abdomen): normal bowel sounds, soft, nontender, no hepatosplenomegaly Skin: kirti removed from wounds b/l legs; right foot - clean-based ulcer on right 5th toe region/metatarsal - mild oozing of blood Psychiatric: A+Ox3, euthymic affect Results & Data Results & Data ([facility]) Vital Signs (Past 12 Hours) Vital Signs Temp Pulse Pulse Resp BP Pulse Ox 11/21/20 07:07 36.5 C 86 17 105/67 90 11/21/20 04:00 37.0 C 74 18 143/82 H 93 11/20/20 23:30 36.7 C 76 18 125/86 92 Cr 0.7 acceptable PG Care Time/CCT Total # of Minutes Spent Total Time Spent with Patient: Total time spent is greater than 50% in coor dination of care (as documented) at patient's floor/unit and/or counseling patient: Coding Level of Care Code 27053 Subseq Hosp Care Lvl 3 Diagnoses Acute combined systolic and diastolic heart failure I50.41 Acute respiratory failure with hypoxia J96.01 Atrial fibrillation with rapid ventricular response I48.91 Peripheral arterial disease I73.9 Osteomyelitis M86.9 Depression F32.9 RLS (restless legs syndrome) G25.81 Anemia D64.9 Peripheral neuropathy G62.9 Peripheral neuropathy type: polyneuropathy, unspecified COPD exacerbation J44.1 Candidiasis of mouth and esophagus B37.81; B37.0 DVT prophylaxis Z29.9 (1) Peripheral neuropathy Peripheral neuropathy type: polyneuropathy, unspecified Qualified Code(s): G62.9 - Polyneuropathy, unspecified
[2020-11-21 07:50] LABS: BUN Creatinine Ratio 38.5 (10-20); Calcium 9.4 mg/dl (8.5-10.1); Creatinine Clr Calc Pharmacy 47.9 ml/min; Est GFR (African American) 79.9; Potassium 3.9 mmol/L (3.5-5.1)
--- NOTE | 2020-11-21 08:02 | Surgery Progress Note ---
Date of Service November 21, 2020 Assessment & Plan (1) S/P femoral-tibial bypass: Will plan on distal 4th toe amp this week if she remains in the hospital. Can do it as an outpatient if she is transferred back to rehab Admission and Anticipated Discharge Date Admission Date: November 14, 2020 Subjective Patient without complaints of foot pain Physical Exam Physical Exam: Incisions dry and clean. Palpable DP on the right. Foot wound improving nicely Does have necrotic tip of right 4th toe Results & Data ([facility]) Vital Signs (Past 12 Hours) Vital Signs Temp Pulse Pulse Resp BP Pulse Ox 11/21/20 07:07 36.5 C 86 17 105/67 90 11/21/20 04:00 37.0 C 74 18 143/82 H 93 11/20/20 23:30 36.7 C 76 18 125/86 92
[2020-11-21] MEDS: NYSTATIN SUSP 500,000 U/5 ML UDC PO SCH ×4 (08:08→20:47)
[2020-11-21] MEDS: METOPROLOL SUCC 50MG EXT REL TAB PO SCH (08:08)
[2020-11-21] MEDS: GABAPENTIN 300 MG CAP PO SCH ×3 (08:09→20:47)
[2020-11-21] MEDS: predniSONE 10 MG TABLET PO SCH (08:09)
[2020-11-21] MEDS: FUROSEMIDE 40 MG in SYRINGE 0 ML IV SCH ×2 (08:09→18:32)
[2020-11-21] MEDS: POTASSIUM CHLORIDE CRTAB 20 MEQ TABCR PO SCH ×2 (08:09→20:47)
[2020-11-21] MEDS: ATORVASTATIN 40 MG TAB PO SCH (08:09)
[2020-11-21] MEDS: SACCHAROMYCES BOULARDII 250 MG CAP PO SCH (08:10)
[2020-11-21] MEDS: APIXABAN 5 MG TABLET PO SCH ×2 (08:10→20:47)
[2020-11-21] MEDS: PANTOprazole 40 MG TAB PO SCH (08:10)
[2020-11-21] MEDS: ASPIRIN 81 MG ECTAB PO SCH (08:10)
[2020-11-21] MEDS: oxyCODONE HCL IR 5 MG TAB (IMMEDIATE RELEASE) PO PRN (08:19)
--- NOTE | 2020-11-21 15:17 | CT Scan Report ---
CT chest diagnostic wo con CT DOSE: 172.29 mGy.cm CLINICAL HISTORY: 75 years-old Female with persistent hypoxia, b/l rales; ILD? aspiration?. Acute h ypoxia with aspiration TECHNIQUE: Multiaxial CT images of the chest were performed without contrast. A dose lowering techni que was utilized adhering to the principles of ALARA. COMPARISON: Chest radiographs 08/25/2020 FINDINGS: Unremarkable thyroid. Mildly enlarged paratracheal lymph nodes measure up to 10 mm. Mild ca rdiomegaly with extensive coronary artery calcifications. A right-sided PICC is again noted with dist al tip terminating within the inferior SVC. Central airways are patent. Calcified plaque the thoracic aorta without aneurysm. Small left with small to moderate right pleural effusions. No pneumothorax. Study is degraded by respiratory motion artifact. Intralobular septal thickening is noted with bilate ral patchy groundglass and consolidative opacities within upper lung zone predominant distribution. No pneumatosis. No acute process of the imaged upper abdomen. Unremarkable soft tissues. Degenerative changes of the shoulders and spine. 25% superior endplate compression deformity at T5 without retrop ulsion is new from the 08/25/2020 exam. Chronic appearing Schmorl's node involves the superior endpla te at T6. IMPRESSION: 1. Cardiomegaly with pulmonary edema and right greater than left pleural effusions. 2. Upper lung zone predominant groundglass and consolidative opacities are suggestive of a superimpos ed infectious or inflammatory pneumonitis. 3. Mild likely reactive mediastinal adenopathy. 4. Acute versus subacute T5 compression deformity without retropulsion, new from 08/25/2020. ACT 112: Negative or not required by law. Electronically signed by: Cy Cuevas M.D. 11/21/2020 3:16 PM
[2020-11-21] MEDS ORDERED: VANCOMYCIN TROUGH ONE (15:30)
[2020-11-21] MEDS: VANCOMYCIN HCL 750 MG in SODIUM CHLORIDE 0.9% 250 ML IV SCH (16:16)
--- NOTE | 2020-11-21 17:16 | Pharmacy Report ---
Pharmacy Abx Dose Short Note - Date of Service November 21, 2020 - Assessment & Plan Assessment 75 year old F receiving vancomycin/Invanz for treatment of R foot osteomyelitis Day # 8 of antimicrobial therapy. Plan Vancomycin * Trough level of 17.4 mcg/mL is therapeutic. * Continue dose of 750 mg IV every 18 hours * Goal trough level for osteomyelitis : 15 to 20 mcg/mL * Additional troughs to be drawn based upon clinical situation Pharmacy will continue to follow and will adjust dose/frequency as necessary. Thank you.
--- NOTE | 2020-11-21 18:20 | Hospitalist Progress Note ---
Date of Service November 21, 2020 Assessment & Plan (1) Acute combined systolic and diastolic heart failure: improving. CT chest today with ongoing edema/effusions. thus - cont lasix 40mg IV BID. stable creatinine. stable electrolytes. etiology- tachyarrhythmia? was in rapid a.fib upon admission. other? ischemic? LBBB-related? continue metoprolol xl. will start lisinopril 2.5mg daily tomorrow if Creatinine is stable. CHF clinic consult and recs appreciated. (2) Acute respiratory failure with hypoxia: Despite clinical improvement with diuresis, steroids, nebs, etc she has remained hypoxic. Oddly she has had anterior rales on exam which would be unusual for pulmonary edema. Thus, CT chest obtained today. This showed b/l airspace disease in addition to b/l pulm edema. Pt now also stating she has had cough with eating for 2 months. Thus, is the airspace disease aspiration ?? Ertapenem should cover such if infectious. Will recheck COVID just to be sure first COVID test wasn't falsely negative. Consider pulmonary consultation. Speech therapy consult requested for swallow eval. Diurese. cont Steroids; wean to 20mg daily tomorrow. Nebs/supportive care. (3) Atrial fibrillation with rapid ventricular response: New onset. Resolved while awaiting admission in ER. Remains in NSR. Cont metoprolol xl. Continue eliquis BID. (4) Peripheral arterial disease: S/p right femoral to anterior tibial composite reverse saphenous vein bypass with harvesting of the left great saphenous vein with Dr. Robin on 11/06/2020. [place] removed 11/20/20. Continue aspirin and apixaban Continue statin Continues with very good pulses and perfusion on exam. Dr Robin saw patient today - will need partial amputation of 4th right toe unfortunately. Not urgent however. (5) Osteomyelitis: Concern for osteomyelitis of right foot. Right Foot MRI on 11/04 was an extremely poor study and equivocal for osteomye litis however. [id number], Garry MONTGOMERY recommended vanc/ertapenem x 6 weeks. (End date: 01/14/2021). RUE PICC line in place. Recent inflammatory markers improved. No fever/other infectious symptoms. Ulceration side of right foot - continue wound care. (6) Depression: - Continue home trazodone - Ativan SL PRN for anxiety (7) RLS (restless legs syndrome): Continue home pramipexole Fe studies acceptable (8) Anemia: b12, folate, iron studies acceptable likely anemia of chronic disease CBC remains acceptable (9) Peripheral neuropathy: improved with increase in gabapentin to 300mg TID. Consider addition of cymbalta if pain persists. b12 level wnl. Cont oxycodone 7.5mg q6h prn. (10) COPD exacerbation: Continue prednisone, nebs, supportive care. Wean prednisone to 20mg tomorrow. (11) Candidiasis of mouth and esophagus: Continue nystatin solution Resolved (12) DVT prophylaxis: Apixaban continue PT/OT updated by phone earlier this week son updated at bedside several times this week will update family tomorrow Admission and Anticipated Discharge Date Admission Date: November 14, 2020 Subjective tele overnight wnl patient still with mild RICH but no orthopnea patient had forgotten to tell us that for the last 1-2 months she has had cough with meals she also sneezes when she eats notices it mainly with solids but not liquids she occasionally chokes on food no vomiting no nausea no abd pain no further diarrhea Review of Systems Constitutional: no fever and no chills Cardiovascular: no chest pain and no orthopnea Gastrointestinal: no abdominal pain Physical Exam Constitutional: no acute distress and no altered mental status ENMT: external ear and nose normal, oropharynx normal (thrush resolved ) Respiratory: Auscultation: + diminished lung sounds (Bases) and + crackles (b/l bases posteriorly; also b/l anterior chest ); no wheezes Cardiovascular: Rate/Rhythm: regular rate and regular rhythm Heart Sounds: normal S1 and normal S2 Vessels: + JVD (but improved today ), posterior tibial pulses present and dorsalis pedis pulses present Extremities: normal capillary refill (B/l feet; warm to touch ) and + edema (<1+ b/l ) Gastrointestinal (Abdomen): normal bowel sounds, soft, nontender, no hepatosplenomegaly Skin: no further oozing right lateral foot; dystrophic toenails Psychiatric: A+Ox3, euthymic affect Results & Data Results & Data ([facility]) Vital Signs (Past 12 Hours) Vital Signs Temp Pulse Pulse Pulse Resp BP Pulse Ox 11/21/20 16:19 36.6 C 78 18 128/63 92 11/21/20 16:00 76 11/21/20 11:25 36.6 C 76 19 129/76 91 11/21/20 08:00 83 11/21/20 07:07 36.5 C 86 17 105/67 90 Laboratory Results Laboratory Results - last 24 hr 11/21/20 11/21/20 11/21/20 06:45 06:45 15:57 WBC 14.38 H RBC 3.27 L Hgb 9.2 L Hct 28.5 L MCV 87.2 MCH 28.1 MCHC 32.3 RDW Std Deviation 48.1 H RDW Coeff of Janie 15.3 H Plt Count 666 H MPV 9.7 Sodium 137 Potassium 3.9 Chloride 104 Carbon Dioxide 28 Anion Gap 6.0 BUN 32 H Creatinine 0.84 Est Cr Clr Drug Dosing 47.9 Est GFR ( Amer) 79.9 Est GFR (Non-Af Amer) 69.0 BUN/Creatinine Ratio 38.5 H Glucose 139 H Calcium 9.4 Vancomycin Trough 17.4 PG Care Time/CCT Total # of Minutes Spent Total Time Spent with Patient: Total time spent is greater than 50% in coordination of care (as documented) at patient's floor/unit and/or counseling patient: Coding Level of Care Code 70887 Subseq Hosp Care Lvl 3 Diagnoses Acute combined systolic and diastolic heart failure I50.41 Acute respiratory failure with hypoxia J96.01 Atrial fibrillation with rapid ventricular response I48.91 Peripheral arterial disease I73.9 Osteomyelitis M86.9 Depression F32.9 RLS (restless legs syndrome) G25.81 Anemia D64.9 Peripheral neuropathy G62.9 Peripheral neuropathy type: polyneuropathy, unspecified COPD exacerbation J44.1 Candidiasis of mouth and esophagus B37.81; B37.0 DVT prophylaxis Z29.9 (1) Peripheral neuropathy Peripheral neuropathy type: polyneuropathy, unspecified Qualified Code(s): G62.9 - Polyneuropathy, unspecified
[2020-11-21] MEDS: ERTAPENEM SODIUM 1,000 MG in SODIUM CHLORIDE 0.9% 50 ML IV SCH (20:47)
[2020-11-21] MEDS: PRAMIPEXOLE DIHYDROCHLO 0.25 MG TAB PO SCH (20:47)
[2020-11-21] MEDS: traZODone HCL 50 MG TAB PO PRN (20:58)
[2020-11-21] MEDS: ALBUT/IPRATROP 3MG/0.5MG NEB 3 ML VIAL NEB PRN (21:02)
[2020-11-21 21:47] LABS: Influenza A virus by PCR Negative (Neg); Influenza B virus by PCR Negative (Neg); RSV by PCR Negative (Neg); SARS CoV2 RNA(COVID-19) InHosp NEGATIVE (Negative)
[2020-11-22] MEDS: oxyCODONE HCL IR 5 MG TAB (IMMEDIATE RELEASE) PO PRN ×2 (04:08→09:27)
[2020-11-22] MEDS: NYSTATIN SUSP 500,000 U/5 ML UDC PO SCH ×4 (07:32→20:32)
[2020-11-22] MEDS: FUROSEMIDE 40 MG in SYRINGE 0 ML IV SCH ×2 (07:32→16:25)
[2020-11-22] MEDS: predniSONE 10 MG TABLET PO SCH (07:33)
[2020-11-22] MEDS: ATORVASTATIN 40 MG TAB PO SCH (07:33)
[2020-11-22] MEDS: SACCHAROMYCES BOULARDII 250 MG CAP PO SCH (07:33)
[2020-11-22] MEDS: POTASSIUM CHLORIDE CRTAB 20 MEQ TABCR PO SCH ×2 (07:33→20:32)
[2020-11-22] MEDS: GABAPENTIN 300 MG CAP PO SCH ×3 (07:33→20:32)
[2020-11-22] MEDS: PANTOprazole 40 MG TAB PO SCH (07:34)
[2020-11-22] MEDS: METOPROLOL SUCC 50MG EXT REL TAB PO SCH (07:34)
[2020-11-22] MEDS: APIXABAN 5 MG TABLET PO SCH ×2 (07:34→20:32)
[2020-11-22] MEDS: ASPIRIN 81 MG ECTAB PO SCH (07:40)
[2020-11-22 08:27] LABS: BUN Creatinine Ratio 45.5 (10-20); Calcium 9.7 mg/dl (8.5-10.1); Creatinine Clr Calc Pharmacy 44.8 ml/min; Est GFR (African American) 73.5; Est GFR (Non-African American) 63.4; Magnesium 1.8 mg/dl (1.8-2.4); Potassium 3.9 mmol/L (3.5-5.1)
[2020-11-22] MEDS ORDERED: STAT IV Infusion **Titration per Protocol STA (08:59)
[2020-11-22] MEDS ORDERED: MAGNESIUM SULFATE / D5W 1 GM/100 ML BAG IV ONE (09:15)
[2020-11-22] MEDS: VANCOMYCIN HCL 750 MG in SODIUM CHLORIDE 0.9% 250 ML IV SCH (09:23)
[2020-11-22] MEDS ORDERED: dilTIAZem HCL 125 MG in DEXTROSE 5% 100 ML IV SCH (09:30)
--- NOTE | 2020-11-22 12:03 | Hospitalist Progress Note ---
Date of Service November 22, 2020 Assessment & Plan (1) Acute combined systolic and diastolic heart failure: improving by way of exam, symptoms, and weights. CT chest yesterday with ongoing edema/effusions. cont lasix 40mg IV BID today but hold after tonight's dose -- may have to switch to diamox tomorrow due to rising HCO3 suggestive of contraction alkalosis. etiology- tachyarrhythmia? was in rapid a.fib upon admission and had such again today. ischemic? LBBB-related? continue metoprolol xl. increasing to BID dosing today due to PAF - see below. CHF clinic consult and recs appreciated. If BP will allow ultimately will need low-dose SAMY or ARB. (2) Acute respiratory failure with hypoxia: Primary culprit is CHF. CT chest 11/21 with extensive b/l infiltrates. Repeat COVID/flu/RSV negative. If there is any infectious component in the lungs ertapenem and vanco should cover a variety of pathogens (not pseudomonas however). Speech therapy consult requested for swallow eval to r/o aspiration as a cause of CT findings - aspiration NOT suspected. Continue to diurese. Cont Steroids; wean to 20mg daily on 11/23. No wheezing on exam today. Continue Nebs/supportive care. (3) Atrial fibrillation with rapid ventricular response: Had first episode while awaiting admission in ER. Did not have symptoms during that spell. 2nd episode today - lasting several hours, then spontaneously converting back to NSR. Cont metoprolol xl 50mg qam; add 25mg at HS. Continue eliquis BID. If she develops PAF again could try to push metoprolol dose further or add back cardizem. Alternatively could use amiodarone for rhythm control as she is anticoagulated. (4) Peripheral arterial disease: S/p right femoral to anterior tibial composite reverse saphenous vein bypass with harvesting of the left great saphenous vein with Dr. Robin on 11/06/2020. [place] removed 11/20/20. Continue aspirin and apixaban Continue statin Continues with very good pulses and perfusion on exam. Dr Robin saw patient 11/21 - will need partial amputation of 4th right toe unfortunately. Not urgent however. Sometime this coming week or post discharge. (5) Osteomyelitis: Concern for osteomyelitis of right foot on previous hospital stay. Right Foot MRI on 11/04 was an extremely poor study and equivocal for osteomyelitis however. study results from 11/04: "FINDINGS: Very Limited exam secondary to extensive motion artifact. The study was unable to be completed secondary to reported patient pain. Axial STIR images were not completed. There is moderate diffuse subcutaneous and intramuscular and deep tissue edema throughout the foot. No fluid collection or discrete mass. No definite intermetatarsal bursitis. Moderate bone marrow edema is noted involving the fifth proximal phalanx. Cortical thickening is also noted with the previously described fracture involving the proximal phalangeal base not definitively seen. Additional areas of bone marrow edema are suggested within the first and fourth distal phalanges. Questioned cortical irregularity involving the medial aspect of the first distal phalangeal tuft is better appreciated on comparison radiographs." [id number], Garry MONTGOMERY recommended vanc/ertapenem x 6 weeks during that hospital stay. (End date: 01/14/2021). RUE PICC line in place. Recent inflammatory markers improved. No fever/other infectious symptoms. Ulceration side of right foot - continue wound care. (6) Depression: - Continue home trazodone - Ativan SL PRN for anxiety (7) RLS (restless legs syndrome): Continue home pramipexole Fe studies acceptable (8) Anemia: b12, folate, iron studies acceptable likely anemia of chronic disease CBC remains acceptable (9) Peripheral neuropathy: improved with increase in gabapentin to 300mg TID. Consider addition of cymbalta if pain persists. b12 level wnl. Cont oxycodone 7.5mg q6h prn. (10) COPD exacerbation: Continue prednisone, nebs, supportive care. Wean prednisone to 20mg tomorrow. (11) Candidiasis of mouth and esophagus: Continue nystatin solution Resolved (12) DVT prophylaxis: Apixaban continue PT/OT updated by phone earlier this week son updated at bedside several times this week including today ultimately patient wishes to return to [facility] post[facility]/c Admission and Anticipated Discharge Date Admission Date: November 14, 2020 Subjective patient was in NSR overnight, then converted to rapid a.fib this am. had no palpitations or chest pain during the PAF episode. cardizem infusion begun, titrated up to 10mg/hr, then spontaneously converted several hours later. patient continues to feel better. no cough. denies dyspnea. eating well. enjoys candy bars - son bring "twix" bars today! diarrhea improved. b/l leg pains stable, mild at best, and intermittent. Review of Systems Constitutional: no fever, no chills and no anorexia Respiratory: no wheezing Cardiovascular: no chest pain, no orthopnea and no paroxysmal nocturnal dyspnea Gastrointestinal: no abdominal pain Physical Exam Constitutional: no acute distress and no altered mental status ENMT: external ear and nose normal, oropharynx normal (thrush resolved ) Respiratory: Auscultation: + diminished lung sounds (Bases - mild/improving ) and + crackles (b/l bases posteriorly but improved today; also b/l anterior chest ); no wheezes Cardiovascular: Rate/Rhythm: + tachycardic and + irregularly irregular Heart Sounds: normal S1 and normal S2 Vessels: + JVD, posterior tibial pulses present and dorsalis pedis pulses present Extremities: normal capillary refill (B/l feet; warm to touch ) and + edema (<1+ b/l ) Gastrointestinal (Abdomen): normal bowel sounds, soft, nontender, no hepatosplenomegaly Skin: incisions b/l legs c/d/i with intact steri-strips; small ulcer near right 5th toe - clean; cap refill 2 sec b/l feet Psychiatric: A+Ox3, euthymic affect Results & Data Results & Data ([facility]) Vital Signs (Past 12 Hours) Vital Signs Temp Pulse Pulse Pulse Resp BP Pulse Ox 11/22/20 11:21 36.3 C L 108 H 19 96/65 L 91 11/22/20 08:00 89 11/22/20 07:30 36.5 C 75 18 128/66 91 11/22/20 03:40 37.0 C 78 19 130/101 H 91 11/22/20 00:57 67 11/21/20 23:16 37.0 C 77 18 132/75 94 Laboratory Results Laboratory Results - last 24 hr 11/21/20 11/21/20 11/21/20 15:57 20:46 20:46 Sodium Potassium Chloride Carbon Dioxide Anion Gap BUN Creatinine Est Cr Clr Drug Dosing Est GFR ( Amer) Est GFR (Non-Af Amer) BUN/Creatinine Ratio Glucose Calcium Magnesium Vancomycin Trough 17.4 COVID-19 Eval Order CovFluRsv at [facility] SARS-CoV-2 (PCR) NEGATIVE Influenza Type A (PCR) Negative Influenza Type B (PCR) Negative RSV (RT-PCR) Negative 11/22/20 07:55 Sodium 137 Potassium 3.9 Chloride 100 Carbon Dioxide 33 H Anion Gap 4.0 BUN 41 H Creatinine 0.90 Est Cr Clr Drug Dosing 44.8 Est GFR ( Amer) 73.5 Est GFR (Non-Af Amer) 63.4 BUN/Creatinine Ratio 45.5 H Glucose 112 H Calcium 9.7 Magnesium 1.8 Vancomycin Trough COVID-19 Eval Order SARS-CoV-2 (PCR) Influenza Type A (PCR) Influenza Type B (PCR) RSV (RT-PCR) CT chest - diffuse b/l infiltrates - likely edema; b/l pleural effusions PG Care Time/CCT Total # of Minutes Spent Total Time Spent with Patient: Total time spent is greater than 50% in coordination of care (as documented) at patient's floor/unit and/or counseling patient: Coding Level of Care Code 01597 Subseq Hosp Care Lvl 3 Diagnoses Acute combined systolic and diastolic heart failure I50.41 Acute respiratory failure with hypoxia J96.01 Atrial fibrillation with rapid ventricular response I48.91 Peripheral arterial disease I73.9 Osteomyelitis M86.9 Depression F32.9 RLS (restless legs syndrome) G25.81 Anemia D64.9 Peripheral neuropathy G62.9 Peripheral neuropathy type: polyneuropathy, unspecified COPD exacerbation J44.1 Candidiasis of mouth and esophagus B37.81; B37.0 DVT prophylaxis Z29.9 (1) Peripheral neuropathy Peripheral neuropathy type: polyneuropathy, unspecified Qualified Code(s): G6 2.9 - Polyneuropathy, unspecified
[2020-11-22] MEDS: METOPROLOL SUCC 25MG EXT REL TAB PO SCH (20:31)
[2020-11-22] MEDS: PRAMIPEXOLE DIHYDROCHLO 0.25 MG TAB PO SCH (20:32)
[2020-11-22] MEDS: ERTAPENEM SODIUM 1,000 MG in SODIUM CHLORIDE 0.9% 50 ML IV SCH (20:32)
[2020-11-23] MEDS: VANCOMYCIN HCL 750 MG in SODIUM CHLORIDE 0.9% 250 ML IV SCH ×2 (03:37→22:03)
[2020-11-23 06:38] LABS: Basophils # (auto) 0.04 K/uL (0-0.2); Basophils % (auto) 0.3 %; Eosinophils # (auto) 0.16 K/uL (0-0.5); Eosinophils % (auto) 1.2 %; Hematocrit (blood only) 28.2 % (37-47); Hemoglobin 9.3 g/dL (12.0-16.0); Immature Granulocytes # (auto) 0.03 K/uL (0.00-0.02); Immature Granulocytes % (auto) 0.2 %; Lymphocytes # (auto) 2.25 K/uL (1.2-3.4); Lymphocytes % (auto) 16.4 %; Mean Corpuscular Hemoglobin 28.2 pg (25-34); Mean Corpuscular Volume 85.5 fL (80-100); Monocytes # (auto) 1.34 K/uL (0.11-0.59); Monocytes % (auto) 9.8 %; Neutrophils # (auto) 9.86 K/uL (1.4-6.5); Neutrophils % (auto) 72.1 %; Platelet Count 522 K/uL (130-400); RDW Coefficient of Variation 15.5 % (11.5-14.5); White Blood Count 13.68 K/uL (4.8-10.8)
[2020-11-23 06:54] LABS: BUN Creatinine Ratio 56.9 (10-20); Calcium 8.8 mg/dl (8.5-10.1); Creatinine Clr Calc Pharmacy 45.2 ml/min; Est GFR (African American) 74.5; Est GFR (Non-African American) 64.3
[2020-11-23] MEDS: SACCHAROMYCES BOULARDII 250 MG CAP PO SCH (07:57)
[2020-11-23] MEDS: ASPIRIN 81 MG ECTAB PO SCH (07:57)
[2020-11-23] MEDS: APIXABAN 5 MG TABLET PO SCH ×2 (07:57→20:31)
[2020-11-23] MEDS: ATORVASTATIN 40 MG TAB PO SCH (07:58)
[2020-11-23] MEDS: POTASSIUM CHLORIDE CRTAB 20 MEQ TABCR PO SCH ×2 (07:58→20:32)
[2020-11-23] MEDS: GABAPENTIN 300 MG CAP PO SCH ×3 (07:58→22:03)
[2020-11-23] MEDS: NYSTATIN SUSP 500,000 U/5 ML UDC PO SCH ×4 (07:58→20:32)
[2020-11-23] MEDS: METOPROLOL SUCC 50MG EXT REL TAB PO SCH (07:59)
[2020-11-23] MEDS: PANTOprazole 40 MG TAB PO SCH (07:59)
[2020-11-23] MEDS: predniSONE 20 MG TAB PO SCH (07:59)
--- NOTE | 2020-11-23 09:48 | Hospitalist Progress Note ---
Date of Service November 23, 2020 Assessment & Plan (1) Acute combined systolic and diastolic heart failure: improving - negative 7.3 liters by I/O, weight only down by 3kg though weights prior this year were 57kg, now 60kg CT chest 11/21 with ongoing edema/effusions. resume Lasix 40mg IV BID today etiology- tachyarrhythmia? ischemic? LBBB-related? continue metoprolol xl, increased to BID CHF clinic consult and recs appreciated. If BP will allow ultimately will need low-dose SAMY or ARB, hold for today as will continue with aggressive diuresis (2) Acute respiratory failure with hypoxia: Primary culprit is CHF. CT chest 11/21 with extensive b/l infiltrates. Repeat COVID/flu/RSV negative. If there is any infectious component in the lungs ertapenem and vanco should cover a variety of pathogens (not pseudomonas however). Speech therapy consult requested for swallow eval to r/o aspiration as a cause of CT findings - aspiration NOT suspected. Continue to diurese. Cont Steroids; wean to 20mg daily on 11/23. No wheezing on exam Continue Nebs/supportive care. saturations 91-92% on 2L, no distress (3) Atrial fibrillation with rapid ventricular response: Had first episode while awaiting admission in ER. Did not have symptoms during that spell. 2nd episode on 11/22 - lasting several hours, then spontaneously converting back to NSR. Cont metoprolol xl 50mg qam and 25mg at HS. Continue eliquis BID. (4) Peripheral arterial disease: S/p right femoral to anterior tibial composite reverse saphenous vein bypass with harvesting of the left great saphenous vein with Dr. Robin on 11/06/2020. [place] removed 11/20/20. Continue aspirin and apixaban Continue statin Continues with very good pulses and perfusion on exam. Dr Robin saw patient 11/21 - will need partial amputation of 4th right toe unfortunately. Not urgent however. Sometime this coming week or post discharge, still determining timing (5) Osteomyelitis: Concern for osteomyelitis of right foot on previous hospital stay. Right Foot MRI on 11/04 was an extremely poor study and equivocal for osteomyelitis however. study results from 11/04: "FINDINGS: Very Limited exam secondary to extensive motion artifact. The study was unable to be completed secondary to reported patient pain. Axial STIR images were not completed. There is moderate diffuse subcutaneous and intramuscular and deep tissue edema throughout the foot. No fluid collection or discrete mass. No definite intermetatarsal bursitis. Moderate bone marrow edema is noted involving the fifth proximal phalanx. Cortical thickening is also noted with the previously described fracture involving the proximal phalangeal base not definitively seen. Additional areas of bone marrow edema are suggested within the first and fourth distal phalanges. Questioned cortical irregularity involving the medial aspect of the first distal phalangeal tuft is better appreciated on comparison radiographs." [id number], Garry ID recommended vanc/ertapenem x 6 weeks during that hospital stay. (End date: 01/14/2021). RUE PICC line in place. Recent inflammatory markers improved. No fever/other infectious symptoms. Ulceration side of right foot - continue wound care. (6) Depression: - Continue home trazodone - Ativan SL PRN for anxiety (7) RLS (restless legs syndrome): Continue home pramipexole Fe studies acceptable (8) Anemia: b12, folate, iron studies acceptable likely anemia of chronic disease Hb 9.3 today (9) Peripheral neuropathy: improved with increase in gabapentin to 300mg TID. Consider addition of cymbalta if pain persists. b12 level wnl. Cont oxycodone 7.5mg q6h prn. (10) COPD exacerbation: Continue prednisone, nebs, supportive care. Wean prednisone to 20mg tomorrow. (11) Candidiasis of mouth and esophagus: Continue nystatin solution Resolved (12) DVT prophylaxis: Apixaban continue PT/OT ultimately patient wishes to return to [facility] post-d/c Admission and Anticipated Discharge Date Admission Date: November 14, 2020 Subjective chart reviewed labs reviewed, BUN up to 51, Cr normal, K normal, HCO3 trending down WBC 13, Hb 9.3 Lasix was placed on hold this morning after several days of 40mg IV BID, negative 7.3 liters for admission, weight down 3kg which would be 3 liters she says her breathing is good, feels close to normal for her has edema in both of her legs, pitting, no rales on lung exam she is eating well, moving her bowels she c/o fatigue, sleeping during the day she continues to want to go to [facility], but she is curious about when she will get partial amputation of toe Review of Systems Review of Systems: All systems reviewed & are unremarkable except as noted in Subjective Constitutional: + fatigue and + weakness; no fever, no chills and no sweats Respiratory: no cough, no dyspnea and no dyspnea on exertion Cardiovascular: + edema; no chest pain, no palpitations and no syncope Gastrointestinal: no abdominal pain, no nausea, no vomiting, no constipation and no diarrhea/loose stools Physical Exam Constitutional: WD/WN, vitals as above no acute distress Neck: trachea midline, no thyromegaly Respiratory: normal respiratory effort, lungs clear to auscultation Cardiovascular: Rate/Rhythm: regular rate and regular rhythm Heart Sounds: normal S1 and normal S2; no murmur Vessels: no JVD Extremities: normal capillary refill and + edema (pitting, 2+ bilaterally) Gastrointestinal (Abdomen): normal bowel sounds, soft, nontender, no hepatosplenomegaly Musculoskeletal: no cyanosis or clubbing, extremities motor strength 5/5 Skin: no rashes, warm and dry Neurologic: patellar DTR's 2+ bilat, sensation intact and PERRL, EOMI, accommodation nl, no face palsy, no dysarthria Psychiatric: A+Ox3, euthymic affect Lymphatic: no cervical or axillary lymphadenopathy Results & Data Results & Data ([facility]) Vital Signs (Past 12 Hours) Vital Signs Temp Pulse Pulse Resp BP Pulse Ox 11/23/20 08:00 69 11/23/20 07:08 36.5 C 70 22 137/73 90 11/23/20 03:44 36.4 C L 65 20 121/74 91 11/22/20 23:42 36.6 C 69 19 132/79 92 11/22/20 22:20 67 Laboratory Results Laboratory Results - last 24 hr 11/23/20 11/23/20 06:13 06:13 WBC 13.68 H RBC 3.30 L Hgb 9.3 L Hct 28.2 L MCV 85.5 MCH 28.2 MCHC 33.0 RDW Std Deviation 48.0 H RDW Coeff of Janie 15.5 H Plt Count 522 H MPV 10.0 Immature Gran % (Auto) 0.2 Neut % (Auto) 72.1 Lymph % (Auto) 16.4 [place] % (Auto) 9.8 Eos % (Auto) 1.2 Baso % (Auto) 0.3 Neut # (Auto) 9.86 H Lymph # (Auto) 2.25 [place] # (Auto) 1.34 H Eos # (Auto) 0.16 Baso # (Auto) 0.04 Immature Gran # (Auto) 0.03 H Sodium 137 Potassium 4.0 Chloride 102 Carbon Dioxide 29 Anion Gap 6.0 BUN 51 H Creatinine 0.89 Est Cr Clr Drug Dosing 45.2 Est GFR ( Amer) 74.5 Est GFR (Non-Af Amer) 64.3 BUN/Creatinine Ratio 56.9 H Glucose 102 H Calcium 8.8 Medications Administered Current Inpatient Medications Acetaminophen (Acetaminophen 325 Mg Tab) 650 mg PO Q4H PRN PRN Reason: pain/fever Stop: 12/14/20 12:29 Last Admin: 11/17/20 20:21 Dose: 650 mg Documented by: Albuterol (Albut/Ipratrop 3mg/0.5mg Neb 3 Ml Vial) 3 ml NEB Q4R PRN PRN Reason: Shortness Of Breath Or Wheezing Stop: 12/15/20 10:59 Last Admin: 11/21/20 21:02 Dose: 3 ml Documented by: Apixaban (Apixaban 5 Mg Tablet) 5 mg PO BID [facility] Stop: 12/14/20 20:59 Last Admin: 11/23/20 07:57 Dose: 5 mg Documented by: Aspirin (Aspirin 81 Mg Ectab) 81 mg PO DAILY [facility] Stop: 12/15/20 08:59 Last Admin: 11/23/20 07:57 Dose: 81 mg Documented by: Atorvastatin Calcium (Atorvastatin 40 Mg Tab) 40 mg PO QAM NARESH Stop: 12/15/20 08:59 Last Admin: 11/23/20 07:58 Dose: 40 mg Documented by: Gabapentin (Gabapentin 300 Mg Cap) 300 mg PO TID [facility] Stop: 12/19/20 08:59 Last Admin: 11/23/20 07:58 Dose: 300 mg Documented by: Heparin Sodium (Beef Lung) (Heparin 10 Unit/Ml 5 Ml Flush) 5 ml FLUSH PRN PRN PRN Reason: Flush Stop: 12/15/20 01:00 Ertapenem 1,000 mg/ Sodium (Chloride) 60 mls @ 100 mls/hr IV Q24H NARESH; Protocol Stop: 12/26/20 20:59 Last Infusion: 11/22/20 21:05 Dose: 0 mls/hr Documented by: Furosemide 40 mg/ Syringe 4 mls @ 4 mls/min IV BID17 [facility] Stop: 12/18/20 08:59 Last Admin: 11/22/20 16:25 Dose: 4 mls/min Documented by: Vancomycin HCl 750 mg/ Sodium (Chloride) 265 mls @ 200 mls/hr IV Q18H [facility]; Protocol Stop: 01/01/21 03:59 Last Infusion: 11/23/20 05:00 Dose: Infused Documented by: Diltiazem HCl 125 mg/ Dextrose 125 mls @ 5 mls/hr IV .Q24H [facility]; Protocol Stop: 12/22/20 09:29 Last Titration: 11/22/20 15:37 Dose: Infused Documented by: Lorazepam (Lorazepam 0.5 Mg Tab) 0.5 mg SL Q4H PRN PRN Reason: Anxiety/Agitation Stop: 12/14/20 17:41 Last Admin: 11/20/20 23:38 Dose: 0.5 mg Documented by: Metoprolol Succinate (Metoprolol Succ 50mg Ext Rel Tab) 50 mg PO QAM [facility] Stop: 12/15/20 12:59 Last Admin: 11/23/20 07:59 Dose: 50 mg Documented by: Metoprolol Succinate (Metoprolol Succ 25mg Ext Rel Tab) 25 mg PO HS [facility] Stop: 12/22/20 20:59 Last Admin: 11/22/20 20:31 Dose: 25 mg Documented by: Miscellaneous Information (Vancomycin Consult Active) 1 ea N/A UD PRN PRN Reason: Consult Stop: 12/14/20 13:12 Nystatin (Nystatin Susp 500,000 U/5 Ml Udc) 5 ml PO QID [facility] Stop: 11/26/20 16:59 Last Admin: 11/23/20 07:58 Dose: 5 ml Documented by: Ondansetron HCl (Ondansetron Inj 2 Mg/Ml 2 Ml Vial) 4 mg IV Q4H PRN PRN Reason: Nausea Stop: 12/14/20 12:29 Oxycodone HCl (Oxycodone Hcl Ir 5 Mg Tab (Immediate Release)) 7.5 mg PO Q6H PRN PRN Reason: Pain Stop: 11/28/20 13:00 Last Admin: 11/22/20 09:27 Dose: 7.5 mg Documented by: Pantoprazole Sodium (Pantoprazole 40 Mg Tab) 40 mg PO DAILY [facility] Stop: 12/15/20 08:59 Last Admin: 11/23/20 07:59 Dose: 40 mg Documented by: Potassium Chloride (Potassium Chloride Crtab 20 Meq Tabcr) 20 meq PO BID [facility]ESH Stop: 12/18/20 20:59 Last Admin: 11/23/20 07:58 Dose: 20 meq Documented by: Pramipexole Dihydrochloride (Pramipexole Dihydrochlo 0.25 Mg Tab) 0.25 mg PO HS [facility]ESH Stop: 12/14/20 20:59 Last Admin: 11/22/20 20:32 Dose: 0.25 mg Documented by: Prednisone (Prednisone 20 Mg Tab) 20 mg PO QAM [facility] Stop: 12/23/20 08:59 Last Admin: 11/23/20 07:59 Dose: 20 mg Documented by: Saccharomyces Boulardii (Saccharomyces Boulardii 250 Mg Cap) 250 mg PO DAILY [facility] Stop: 12/15/20 08:59 Last Admin: 11/23/20 07:57 Dose: 250 mg Documented by: Trazodone HCl (Trazodone Hcl 50 Mg Tab) 25 mg PO HS PRN PRN Reason: insomnia Stop: 12/14/20 12:29 Last Admin: 11/21/20 20:58 Dose: 25 mg Documented by: PG Care Time/CCT Total # of Minutes Spent Total Time Spent with Patient: Total time spent is greater than 50% in coordination of care (as documented) at patient's floor/unit and/or counseling patient: Coding Level of Care Code 75328 Subseq Hosp Care Lvl 3 Diagnoses Acute combined systolic and diastolic heart failure I50.41 Acute respiratory failure with hypoxia J96.01 Atrial fibrillation with rapid ventricular response I48.91 Peripheral arterial disease I73.9 Osteomyelitis M86.9 Depression F32.9 RLS (restless legs syndrome) G25.81 Anemia D64.9 Peripheral neuropathy G62.9 Peripheral neuropathy type: polyneuropathy, unspecified COPD exacerbation J44.1 Candidiasis of mouth and esophagus B37.81; B37.0 DVT prophylaxis Z29.9 (1) Peripheral neuropathy Peripheral neuropathy type: polyneuropathy, unspecified Qualified Code(s): G62.9 - Polyneuropathy, unspecified
[2020-11-23] MEDS ORDERED: ALTEPLASE, RECOMBINANT 1 MG/ML 2ML VIAL INSTIL ONE (10:04)
[2020-11-23] MEDS: FUROSEMIDE 40 MG in SYRINGE 0 ML IV SCH (17:27)
[2020-11-23] MEDS: ERTAPENEM SODIUM 1,000 MG in SODIUM CHLORIDE 0.9% 50 ML IV SCH (20:25)
[2020-11-23] MEDS: PRAMIPEXOLE DIHYDROCHLO 0.25 MG TAB PO SCH (20:32)
[2020-11-23] MEDS: METOPROLOL SUCC 25MG EXT REL TAB PO SCH ×2 (20:33→23:59)
[2020-11-24] MEDS: oxyCODONE HCL IR 5 MG TAB (IMMEDIATE RELEASE) PO PRN ×2 (00:04→14:41)
[2020-11-24] MEDS: POTASSIUM CHLORIDE CRTAB 20 MEQ TABCR PO SCH ×2 (07:52→20:37)
[2020-11-24] MEDS: PANTOprazole 40 MG TAB PO SCH (07:52)
[2020-11-24] MEDS: predniSONE 20 MG TAB PO SCH (07:52)
[2020-11-24] MEDS: ATORVASTATIN 40 MG TAB PO SCH (07:52)
[2020-11-24] MEDS: GABAPENTIN 300 MG CAP PO SCH ×3 (07:52→20:37)
[2020-11-24] MEDS: FUROSEMIDE 40 MG in SYRINGE 0 ML IV SCH ×2 (07:53→15:55)
[2020-11-24] MEDS: SACCHAROMYCES BOULARDII 250 MG CAP PO SCH (07:53)
[2020-11-24] MEDS: APIXABAN 5 MG TABLET PO SCH ×2 (07:53→20:37)
[2020-11-24] MEDS: NYSTATIN SUSP 500,000 U/5 ML UDC PO SCH ×4 (07:53→20:37)
[2020-11-24] MEDS: ASPIRIN 81 MG ECTAB PO SCH (07:53)
[2020-11-24] MEDS: METOPROLOL SUCC 50MG EXT REL TAB PO SCH (08:47)
[2020-11-24 09:17] LABS: BUN Creatinine Ratio 43.4 (10-20); Calcium 9.6 mg/dl (8.5-10.1); Creatinine Clr Calc Pharmacy 44.8 ml/min; Est GFR (African American) 73.5; Est GFR (Non-African American) 63.4; Potassium 3.8 mmol/L (3.5-5.1)
--- NOTE | 2020-11-24 10:46 | Communication Note ---
Date of Service: November 24, 2020 Vascular Surgery planning on R 4th toe amputation in OR on 11/27/20, if she is still in house at the time. If not, will plan to schedule as outpt.
--- NOTE | 2020-11-24 14:32 | Heart Failure Progress Note ---
Date of Service November 24, 2020 Assessment & Plan (1) Heart failure with mid-range ejection fraction: (2) COPD exacerbation: (3) Peripheral arterial disease: (4) Hypertension: (5) Atrial fibrillation with rapid ventricular response: Heart failure with mid-range ejection fraction: Currently NYHA Class III symptoms. She denies previous history of CHF or COPD. Potentially iatrogenic volume overload from her recent surgery vs tachycardia induced. There is likely also be a primary pulmonary process contributing to her dyspnea. She continues to examine hypervolemic but improved since yesterday. Continue to wean down on O2 as able. Agree with continued diuresis- Lasix 40 mg IV BID. BUN slightly elevated (potentially from steroid use) but creatinine stable- continue to monitor. Continue low sodium diet. Strict I&Os while inpatient. Continue daily standing weights. Fluid restriction. Dry weight seems to be around 120-125 lb according to the chart and her home weights. She's likely 5-10 lb above her dry weight at this time. We discussed the nature of heart failure and the goals of the program. She is agreeable to participation. Cardiomyopathy: Left ventricular systolic function mildly reduced on echo, 45- 50%. Etiology unclear- potentially from tachycardia as she presented in atrial fibrillation. Rate is now adequately controlled and she is back in sinus rhythm. Continue Metoprolol succinate 50 mg daily. Home med list includes Lisinopril, likely held on admission. Would consider resuming on discharge if BP and kidney function adequate. Atrial fibrillation: Patient presented in afib with RVR. She converted to sinus in the ED. Rate is currently well controlled with beta jamilah. Continue Eliquis 5 mg BID for primary prevention. Hypertension: Well controlled. Continue current therapy. Resume Lisinopril when able. COPD: Presumed. Potentially a contributing factor to her ongoing dyspnea and wheezing. Continue nebs/steroids. Patient recently quit smoking. Continued cessation recommended. Would recommend outpatient PFTs if not improved once volume is optimized. PAD: S/p right femoral to anterior tibial composite reverse saphenous vein bypass with harvesting of the left great saphenous vein with Dr. Robin on 11/06/2020.. Disposition: Enroll in [facility] heart failure program. Follow up scheduled for 11/26/20 at 1400. Discharge instructions have been updated. Patient anticipates discharge to [facility]. Admission and Anticipated Discharge Date Admission Date: November 14, 2020 Subjective Patient appears improved from last week. Her breathing is better, however, she remains on supplemental O2, 2 L. She did not have an O2 requirement prior to admission. Edema noted, slightly improved compared to yesterday. She denies orthopnea or PND. Confirmed she had a standing weight today at 130 lb. She reports good urine output (negative 2.5 overnight). She's net negative 9.9 L this admission. Physical Exam Physical Exam: General: No acute distress, comfortable. HEENT: Head is normal. Sclerae anicteric Neck: Supple, - JVD. Lungs: Normal respiratory effort. Bibasilar crackles, improving. No wheezing. Cardiac: Regular rate and rhythm. S1-S2 normal. No appreciable murmur, gallop or rub. Abdomen: Soft and nontender. Bowel sounds normal. No mass or organomegaly. Extremities: Bilateral medial surgical incisions, healing well, no erythema/drainage, steri strips intact. 1+ bilateral pitting edema. Dressing noted over the lateral aspect of the RLE. Neurologic: Nonfocal Psychiatric: Affect appropriate. Alert and oriented. Results & Data ([facility]) Vital Signs (Past 12 Hours) Vital Signs Temp Pulse Pulse Resp BP Pulse Ox 11/24/20 11:23 97.3 F L 66 97/57 L 94 11/24/20 08:00 65 11/24/20 07:59 97.9 F 71 18 121/73 96 11/24/20 03:23 98.2 F 66 18 125/68 93 PG Care Time/CCT Total # of Minutes Spent Total Time Spent with Patient: Total time spent is greater than 50% in coordination of care (as documented) at patient's floor/unit and/or counseling patient: Heart Failure Data/Metrics Heart Failure Type: Diastolic Evidenced Based Beta Jamilah Therapy Beta Jamilah Therapy: Not Indicated SAMY/ARB/ARNI Therapy SAMY/ARB/ARNI Therapy: Not Indicated Aldosterone Antagonist Therapy Aldosterone Antagonist Therapy: Not Indicated Coding Level of Care Code 24660 Subseq Hosp Care Lvl 3 Diagnoses Heart failure with mid-range ejection fraction I50.9 COPD exacerbation J44.1 Peripheral arterial disease I73.9 Hypertension I10 Atrial fibrillation with rapid ventricular response I48.91
--- NOTE | 2020-11-24 15:52 | Hospitalist Progress Note ---
Date of Service November 24, 2020 Assessment & Plan (1) Acute combined systolic and diastolic heart failure: improving - negative 9 liters by I/O weights prior this year were 57kg, now 59kg CT chest 11/21 with ongoing edema/effusions. continue Lasix 40mg IV BID, tolerating well, BUN and Cr stable etiology- tachyarrhythmia? ischemic? LBBB-related? continue metoprolol xl, increased to BID CHF clinic consult and recs appreciated. If BP will allow ultimately will need low-dose SAMY or ARB, hold for today as will continue with aggressive diuresis (2) Acute respiratory failure with hypoxia: Primary culprit is CHF. CT chest 11/21 with extensive b/l infiltrates. Repeat COVID/flu/RSV negative. If there is any infectious component in the lungs ertapenem and vanco should cover a variety of pathogens (not pseudomonas however). Speech therapy consult requested for swallow eval to r/o aspiration as a cause of CT findings - aspiration NOT suspected. Continue to diurese. Cont Steroids; weaned to 20mg daily on 11/23. No wheezing on exam Continue Nebs/supportive care. saturations 91-92% on 2L, no distress (3) Atrial fibrillation with rapid ventricular response: Had first episode while awaiting admission in ER. Did not have symptoms during that spell. 2nd episode on 11/22 - lasting several hours, then spontaneously converting back to NSR. Cont metoprolol xl 50mg qam and 25mg at HS. Continue eliquis BID. (4) Peripheral arterial disease: S/p right femoral to anterior tibial composite reverse saphenous vein bypass with harvesting of the left great saphenous vein with Dr. Robin on 11/06/2020. [place] removed 11/20/20. Continue aspirin and apixaban Continue statin Continues with very good pulses and perfusion on exam. Dr Robin saw patient 11/21 - will need partial amputation of 4th right toe, this is scheduled for 11/27 (Monday) (5) Osteomyelitis: Concern for osteomyelitis of right foot on previous hospital stay. Right Foot MRI on 11/04 was an extremely poor study and equivocal for osteomyelitis however. study results from 11/04: "FINDINGS: Very Limited exam secondary to extensive motion artifact. The study was unable to be completed secondary to reported patient pain. Axial STIR images were not completed. There is moderate diffuse subcutaneous and intramuscular and deep tissue edema throughout the foot. No fluid collection or discrete mass. No definite intermetatarsal bursitis. Moderate bone marrow edema is noted involving the fifth proximal phalanx. Cortical thickening is also noted with the previously described fracture involving the proximal phalangeal base not definitively seen. Additional areas of bone marrow edema are suggested within the first and fourth distal phalanges. Questioned cortical irregularity involving the medial aspect of the first distal phalangeal tuft is better appreciated on comparison radiographs." [id number], Garry ID recommended vanc/ertapenem x 6 weeks during that hospital stay. (End date: 01/14/2021). RUE PICC line in place. Recent inflammatory markers improved. No fever/other infectious symptoms. Ulceration side of right foot - continue wound care. (6) Depression: - Continue home trazodone - Ativan SL PRN for anxiety (7) RLS (restless legs syndrome): Continue home pramipexole Fe studies acceptable (8) Anemia: b12, folate, iron studies acceptable likely anemia of chronic disease Hb 9.3 on 11/23 (9) Peripheral neuropathy: improved with increase in gabapentin to 300mg TID. Consider addition of cymbalta if pain persists. b12 level wnl. Cont oxycodone 7.5mg q6h prn. (10) COPD exacerbation: Continue prednisone, nebs, supportive care. Wean prednisone to 20mg today (11) Candidiasis of mouth and esophagus: Continue nystatin solution Resolved (12) DVT prophylaxis: Apixaban continue PT/OT ultimately patient wishes to return to [facility] post-d/c Admission and Anticipated Discharge Date Admission Date: November 14, 2020 Subjective patient continues to diurese well with Lasix 40mg IV BID BUN and Cr are stable, K is stable weight going down, she is 59kg today eating well, breathing is stable plans in place for partial amputation of 4th toe on Monday, will need to stay hospitalized until then for diuresis updated CM on the plan, continue to look into [facility] on discharge Review of Systems Review of Systems: All systems reviewed & are unremarkable except as noted in Subjective Physical Exam Constitutional: WD/WN, vitals as above no acute distress Neck: trachea midline, no thyromegaly Respiratory: normal respiratory effort, lungs clear to auscultation Cardiovascular: Rate/Rhythm: regular rate and regular rhythm Heart Sounds: normal S1 and normal S2; no murmur Vessels: no JVD Extremities: normal capillary refill and + edema (pitting, 1+ bilaterally) Gastrointestinal (Abdomen): normal bowel sounds, soft, nontender, no hepatosplenomegaly Musculoskeletal: no cyanosis or clubbing, extremities motor strength 5/5 Skin: no rashes, warm and dry Neurologic: patellar DTR's 2+ bilat, sensation intact and PERRL, EOMI, accommodation nl, no face palsy, no dysarthria Psychiatric: A+Ox3, euthymic affect Lymphatic: no cervical or axillary lymphadenopathy Results & Data Results & Data ([facility]) Vital Signs (Past 12 Hours) Vital Signs Temp Pulse Pulse Resp BP Pulse Ox 11/24/20 15:38 36.7 C 76 18 111/67 90 11/24/20 11:23 36.3 C L 66 97/57 L 94 11/24/20 08:00 65 11/24/20 07:59 36.6 C 71 18 121/73 96 Laboratory Results Laboratory Results - last 24 hr 11/24/20 08:45 Sodium 138 Potassium 3.8 Chloride 102 Carbon Dioxide 29 Anion Gap 7.0 BUN 39 H Creatinine 0.90 Est Cr Clr Drug Dosing 44.8 Est GFR ( Amer) 73.5 Est GFR (Non-Af Amer) 63.4 BUN/Creatinine Ratio 43.4 H Glucose 117 H Calcium 9.6 Medications Administered Current Inpatient Medications Acetaminophen (Acetaminophen 325 Mg Tab) 650 mg PO Q4H PRN PRN Reason: pain/fever Stop: 12/14/20 12:29 Last Admin: 11/17/20 20:21 Dose: 650 mg Documented by: Albuterol (Albut/Ipratrop 3mg/0.5mg Neb 3 Ml Vial) 3 ml NEB Q4R PRN PRN Reason: Shortness Of Breath Or Wheezing Stop: 12/15/20 10:59 Last Admin: 11/21/20 21:02 Dose: 3 ml Documented by: Apixaban (Apixaban 5 Mg Tablet) 5 mg PO BID [facility] Stop: 12/14/20 20:59 Last Admin: 11/24/20 07:53 Dose: 5 mg Documented by: Aspirin (Aspirin 81 Mg Ectab) 81 mg PO DAILY [facility] Stop: 12/15/20 08:59 Last Admin: 11/24/20 07:53 Dose: 81 mg Documented by: Atorvastatin Calcium (Atorvastatin 40 Mg Tab) 40 mg PO QAM [facility] Stop: 12/15/20 08:59 Last Admin: 11/24/20 07:52 Dose: 40 mg Documented by: Gabapentin (Gabapentin 300 Mg Cap) 300 mg PO TID [facility] Stop: 12/19/20 08:59 Last Admin: 11/24/20 12:21 Dose: 300 mg Documented by: Heparin Sodium (Beef Lung) (Heparin 10 Unit/Ml 5 Ml Flush) 5 ml FLUSH PRN PRN PRN Reason: Flush Stop: 12/15/20 01:00 Ertapenem 1,000 mg/ Sodium (Chloride) 60 mls @ 100 mls/hr IV Q24H [facility]; Protocol Stop: 12/26/20 20:59 Last Infusion: 11/23/20 21:01 Dose: Infused Documented by: Furosemide 40 mg/ Syringe 4 mls @ 4 mls/min IV BID17 [facility] Stop: 12/18/20 08:59 Last Admin: 11/24/20 07:53 Dose: 4 mls/min Documented by: Vancomycin HCl 750 mg/ Sodium (Chloride) 265 mls @ 200 mls/hr IV Q18H [facility]; Protocol Stop: 01/01/21 03:59 Last Infusion: 11/23/20 23:25 Dose: Infused Documented by: Diltiazem HCl 125 mg/ Dextrose 125 mls @ 5 mls/hr IV .Q24H [facility]; Protocol Stop: 12/22/20 09:29 Last Titration: 11/22/20 15:37 Dose: Infused Documented by: Lorazepam (Lorazepam 0.5 Mg Tab) 0.5 mg SL Q4H PRN PRN Reason: Anxiety/Agitation Stop: 12/14/20 17:41 Last Admin: 11/20/20 23:38 Dose: 0.5 mg Documented by: Metoprolol Succinate (Metoprolol Succ 50mg Ext Rel Tab) 50 mg PO QAM [facility] Stop: 12/15/20 12:59 Last Admin: 11/24/20 08:47 Dose: 50 mg Documented by: Metoprolol Succinate (Metoprolol Succ 25mg Ext Rel Tab) 25 mg PO HS [facility] Stop: 12/22/20 20:59 Last Admin: 11/23/20 23:59 Dose: 25 mg Documented by: Miscellaneous Information (Vancomycin Consult Active) 1 ea N/A UD PRN PRN Reason: Consult Stop: 12/14/20 13:12 Nystatin (Nystatin Susp 500,000 U/5 Ml Udc) 5 ml PO QID [facility] Stop: 11/26/20 16:59 Last Admin: 11/24/20 12:21 Dose: 5 ml Documented by: Ondansetron HCl (Ondansetron Inj 2 Mg/Ml 2 Ml Vial) 4 mg IV Q4H PRN PRN Reason: Nausea Stop: 12/14/20 12:29 Oxycodone HCl (Oxycodone Hcl Ir 5 Mg Tab (Immediate Release)) 7.5 mg PO Q6H PRN PRN Reason: Pain Stop: 11/28/20 13:00 Last Admin: 11/24/20 14:41 Dose: 7.5 mg Documented by: Pantoprazole Sodium (Pantoprazole 40 Mg Tab) 40 mg PO DAILY [facility] Stop: 12/15/20 08:59 Last Admin: 11/24/20 07:52 Dose: 40 mg Documented by: Potassium Chloride (Potassium Chloride Crtab 20 Meq Tabcr) 20 meq PO BID [facility] Stop: 12/18/20 20:59 Last Admin: 11/24/20 07:52 Dose: 20 meq Documented by: Pramipexole Dihydrochloride (Pramipexole Dihydrochlo 0.25 Mg Tab) 0.25 mg PO HS [facility] Stop: 12/14/20 20:59 Last Admin: 11/23/20 20:32 Dose: 0.25 mg Documented by: Prednisone (Prednisone 20 Mg Tab) 20 mg PO QAM [facility] Stop: 12/23/20 08:59 Last Admin: 11/24/20 07:52 Dose: 20 mg Documented by: Saccharomyces Boulardii (Saccharomyces Boulardii 250 Mg Cap) 250 mg PO DAILY [facility] Stop: 12/15/20 08:59 Last Admin: 11/24/20 07:53 Dose: 250 mg Documented by: Trazodone HCl (Trazodone Hcl 50 Mg Tab) 25 mg PO HS PRN PRN Reason: insomnia Stop: 12/14/20 12:29 Last Admin: 11/21/20 20:58 Dose: 25 mg Documented by: PG Care Time/CCT Total # of Minutes Spent Total Time Spent with Patient: Total time spent is greater than 50% in coordination of care (as documented) at patient's floor/unit and/or counseling patient: Coding Level of Care Code 27692 Subseq Hosp Care Lvl 2 Diagnoses Acute combined systolic and diastolic heart failure I50.41 Acute respiratory failure with hypoxia J96.01 Atrial fibrillation with rapid ventricular response I48.91 Peripheral arterial disease I73.9 Osteomyelitis M86.9 Depression F32.9 RLS (restless legs syndrome) G25.81 Anemia D64.9 Peripheral neuropathy G62.9 Peripheral neuropathy type: polyneuropathy, unspecified COPD exacerbation J44.1 Candidiasis of mouth and esophagus B37.81; B37.0 DVT prophylaxis Z29.9 (1) Peripheral neuropathy Peripheral neuropathy type: polyneuropathy, unspecified Qualified Code(s): G62.9 - Polyneuropathy, unspecified
[2020-11-24] MEDS: VANCOMYCIN HCL 750 MG in SODIUM CHLORIDE 0.9% 250 ML IV SCH (15:55)
[2020-11-24] MEDS ORDERED: METOPROLOL TARTRATE 1 MG/ML VIAL IV STA (20:03)
[2020-11-24] MEDS: PRAMIPEXOLE DIHYDROCHLO 0.25 MG TAB PO SCH (20:37)
[2020-11-24] MEDS: ERTAPENEM SODIUM 1,000 MG in SODIUM CHLORIDE 0.9% 50 ML IV SCH (20:37)
[2020-11-24] MEDS: METOPROLOL SUCC 25MG EXT REL TAB PO SCH (21:40)
[2020-11-25] MEDS: METOPROLOL SUCC 50MG EXT REL TAB PO SCH (08:41)
[2020-11-25] MEDS: SACCHAROMYCES BOULARDII 250 MG CAP PO SCH (08:41)
[2020-11-25] MEDS: PANTOprazole 40 MG TAB PO SCH (08:41)
[2020-11-25] MEDS: ASPIRIN 81 MG ECTAB PO SCH (08:41)
[2020-11-25] MEDS: ATORVASTATIN 40 MG TAB PO SCH (08:41)
[2020-11-25] MEDS: POTASSIUM CHLORIDE CRTAB 20 MEQ TABCR PO SCH ×2 (08:41→20:16)
[2020-11-25] MEDS: predniSONE 20 MG TAB PO SCH (08:41)
[2020-11-25] MEDS: NYSTATIN SUSP 500,000 U/5 ML UDC PO SCH ×4 (08:41→20:16)
[2020-11-25] MEDS: APIXABAN 5 MG TABLET PO SCH ×2 (08:41→20:16)
[2020-11-25] MEDS: FUROSEMIDE 40 MG in SYRINGE 0 ML IV SCH ×2 (08:41→17:16)
[2020-11-25] MEDS: GABAPENTIN 300 MG CAP PO SCH ×3 (08:41→20:16)
[2020-11-25] MEDS ORDERED: VANCOMYCIN TROUGH ONE (09:30)
[2020-11-25 10:06] LABS: BUN Creatinine Ratio 41.4 (10-20); Calcium 9.9 mg/dl (8.5-10.1); Est GFR (African American) 68.9; Est GFR (Non-African American) 59.4; Magnesium 1.7 mg/dl (1.8-2.4); Potassium 3.7 mmol/L (3.5-5.1)
[2020-11-25 10:07] LABS: Phosphorus 3.7 mg/dl (2.5-4.9)
[2020-11-25] MEDS: VANCOMYCIN HCL 750 MG in SODIUM CHLORIDE 0.9% 250 ML IV SCH (10:31)
--- NOTE | 2020-11-25 11:39 | Pharmacy Report ---
Pharmacy Abx Dose Short Note - Date of Service November 25, 2020 - Assessment & Plan Assessment 75 year old F receiving vancomycin/ertapenem for treatment of osteo. ID recommends 6 weeks of therapy. Partial toe amputation planned for Monday. Day # 12 of antimicrobial therapy. Plan Vancomycin * Trough level of 16.4 mcg/mL is therapeutic * Continue dose of 750 mg IV every 18 hours * Goal trough level : 15 to 20 mcg/mL * Trough or random level ordered for: 11/28/20 @7865 Pharmacy will continue to follow and will adjust dose/frequency as necessary. Thank you.
--- NOTE | 2020-11-25 14:37 | Hospitalist Progress Note ---
Date of Service November 25, 2020 Assessment & Plan (1) Acute combined systolic and diastolic heart failure: improving - negative 13 liters by I/O weights prior this year were 57kg, now 57.8kg CT chest 11/21 with ongoing edema/effusions. continue Lasix 40mg IV BID, tolerating well, BUN and Cr stable etiology- tachyarrhythmia? ischemic? LBBB-related? continue metoprolol xl, increased to BID CHF clinic consult and recs appreciated. If BP will allow ultimately will need low-dose SAMY or ARB, hold for today as will continue with aggressive diuresis (2) Acute respiratory failure with hypoxia: Primary culprit is CHF. CT chest 11/21 with extensive b/l infiltrates. Repeat COVID/flu/RSV negative. If there is any infectious component in the lungs ertapenem and vanco should cover a variety of pathogens (not pseudomonas however). Speech therapy consult requested for swallow eval to r/o aspiration as a cause of CT findings - aspiration NOT suspected. Continue to diurese. Cont Steroids; weaned to 20mg daily on 11/23, drop to 10mg tomorrow No wheezing on exam Continue Nebs/supportive care. saturations 91-92% on 2L, no distress (3) Atrial fibrillation with rapid ventricular response: Had first episode while awaiting admission in ER. Did not have symptoms during that spell. 2nd episode on 11/22 - lasting several hours, then spontaneously converting back to NSR. Cont metoprolol xl 50mg qam and 25mg at HS. Continue eliquis BID. (4) Peripheral arterial disease: S/p right femoral to anterior tibial composite reverse saphenous vein bypass with harvesting of the left great saphenous vein with Dr. Robin on 11/06/2020. [place] removed 11/20/20. Continue aspirin and apixaban Continue statin Continues with very good pulses and perfusion on exam. Dr Robin saw patient 11/21 - will need partial amputation of 4th right toe, this is scheduled for 11/27 (Monday) (5) Osteomyelitis: Concern for osteomyelitis of right foot on previous hospital stay. Right Foot MRI on 11/04 was an extremely poor study and equivocal for osteomyelitis however. study results from 11/04: "FINDINGS: Very Limited exam secondary to extensive motion artifact. The study was unable to be completed secondary to reported patient pain. Axial STIR images were not completed. There is moderate diffuse subcutaneous and intramuscular and deep tissue edema throughout the foot. No fluid collection or discrete mass. No definite intermetatarsal bursitis. Moderate bone marrow edema is noted involving the fifth proximal phalanx. Cortical thickening is also noted with the previously described fracture involving the proximal phalangeal base not definitively seen. Additional areas of bone marrow edema are suggested within the first and fourth distal phalanges. Questioned cortical irregularity involving the medial aspect of the first distal phalangeal tuft is better appreciated on comparison radiographs." [id number], Garry ID recommended vanc/ertapenem x 6 weeks during that hospital stay. (End date: 01/14/2021). RUE PICC line in place. Recent inflammatory markers improved. No fever/other infectious symptoms. Ulceration side of right foot - continue wound care. (6) Depression: - Continue home trazodone - Ativan SL PRN for anxiety (7) RLS (restless legs syndrome): Continue home pramipexole Fe studies acceptable (8) Anemia: b12, folate, iron studies acceptable likely anemia of chronic disease Hb 9.3 on 11/23 (9) Peripheral neuropathy: improved with increase in gabapentin to 300mg TID. Consider addition of cymbalta if pain persists. b12 level wnl. Cont oxycodone 7.5mg q6h prn. (10) COPD exacerbation: Continue prednisone, nebs, supportive care. Wean prednisone to 20mg today (11) Candidiasis of mouth and esophagus: Continue nystatin solution Resolved (12) DVT prophylaxis: Apixaban continue PT/OT ultimately patient wishes to return to [facility] post-d/c Admission and Anticipated Discharge Date Admission Date: November 14, 2020 Subjective patient doing well, making a lot of urine, Cr is stable, K is normal weight continues to trend down plan for OR on Monday no dyspnea, no chest pain, no fever/chills, no cough Review of Systems Review of Systems: All systems reviewed & are unremarkable except as noted in Subjective Cardiovascular: + edema Physical Exam Constitutional: WD/WN, vitals as above no acute distress Neck: trachea midline, no thyromegaly Respiratory: normal respiratory effort, lungs clear to auscultation Cardiovascular: Rate/Rhythm: regular rate and regular rhythm Heart Sounds: normal S1 and normal S2; no murmur Vessels: no JVD Extremities: normal capillary refill and + edema (pitting, 1+ bilaterally) Gastrointestinal (Abdomen): normal bowel sounds, soft, nontender, no hepatosplenomegaly Musculoskeletal: no cyanosis or clubbing, extremities motor strength 5/5 Skin: no rashes, warm and dry Neurologic: patellar DTR's 2+ bilat, sensation intact and PERRL, EOMI, accommodation nl, no face palsy, no dysarthria Psychiatric: A+Ox3, euthymic affect Lymphatic: no cervical or axillary lymphadenopathy Results & Data Results & Data ([facility]) Vital Signs (Past 12 Hours) Vital Signs Temp Pulse Pulse Resp BP Pulse Ox 11/25/20 11:26 36.4 C L 98 H 18 94/70 L 90 11/25/20 07:28 36.3 C L 122 H 18 130/85 94 11/25/20 07:25 102 H Laboratory Results Laboratory Results - last 24 hr 11/25/20 11/25/20 09:22 09:22 Sodium 139 Potassium 3.7 Chloride 102 Carbon Dioxide 32 Anion Gap 6.0 BUN 39 H Creatinine 0.95 Est Cr Clr Drug Dosing 42.0 Est GFR ( Amer) 68.9 Est GFR (Non-Af Amer) 59.4 BUN/Creatinine Ratio 41.4 H Glucose 113 H Calcium 9.9 Phosphorus 3.7 Magnesium 1.7 L Vancomycin Trough 16.4 Medications Administered Current Inpatient Medications Acetaminophen (Acetaminophen 325 Mg Tab) 650 mg PO Q4H PRN PRN Reason: pain/fever Stop: 12/14/20 12:29 Last Admin: 11/17/20 20:21 Dose: 650 mg Documented by: Albuterol (Albut/Ipratrop 3mg/0.5mg Neb 3 Ml Vial) 3 ml NEB Q4R PRN PRN Reason: Shortness Of Breath Or Wheezing Stop: 12/15/20 10:59 Last Admin: 11/21/20 21:02 Dose: 3 ml Documented by: Apixaban (Apixaban 5 Mg Tablet) 5 mg PO BID [facility] Stop: 12/14/20 20:59 Last Admin: 11/25/20 08:41 Dose: 5 mg Documented by: Aspirin (Aspirin 81 Mg Ectab) 81 mg PO DAILY [facility] Stop: 12/15/20 08:59 Last Admin: 11/25/20 08:41 Dose: 81 mg Documented by: Atorvastatin Calcium (Atorvastatin 40 Mg Tab) 40 mg PO QAM [facility] Stop: 12/15/20 08:59 Last Admin: 11/25/20 08:41 Dose: 40 mg Documented by: Gabapentin (Gabapentin 300 Mg Cap) 300 mg PO TID [facility] Stop: 12/19/20 08:59 Last Admin: 11/25/20 13:53 Dose: 300 mg Documented by: Heparin Sodium (Beef Lung) (Heparin 10 Unit/Ml 5 Ml Flush) 5 ml FLUSH PRN PRN PRN Reason: Flush Stop: 12/15/20 01:00 Ertapenem 1,000 mg/ Sodium (Chloride) 60 mls @ 100 mls/hr IV Q24H [facility]; Protocol Stop: 12/26/20 20:59 Last Infusion: 11/24/20 21:35 Dose: Infused Documented by: Furosemide 40 mg/ Syringe 4 mls @ 4 mls/min IV BID17 [facility] Stop: 12/18/20 08:59 Last Admin: 11/25/20 08:41 Dose: 4 mls/min Documented by: Vancomycin HCl 750 mg/ Sodium (Chloride) 265 mls @ 200 mls/hr IV Q18H [facility]; Protocol Stop: 01/01/21 03:59 Last Infusion: 11/25/20 11:53 Dose: Infused Documented by: Diltiazem HCl 125 mg/ Dextrose 125 mls @ 5 mls/hr IV .Q24H [facility]; Protocol Stop: 12/22/20 09:29 Last Titration: 11/22/20 15:37 Dose: Infused Documented by: Lorazepam (Lorazepam 0.5 Mg Tab) 0.5 mg SL Q4H PRN PRN Reason: Anxiety/Agitation Stop: 12/14/20 17:41 Last Admin: 11/20/20 23:38 Dose: 0.5 mg Documented by: Metoprolol Succinate (Metoprolol Succ 50mg Ext Rel Tab) 50 mg PO QAM [facility] Stop: 12/15/20 12:59 Last Admin: 11/25/20 08:41 Dose: 50 mg Documented by: Metoprolol Succinate (Metoprolol Succ 25mg Ext Rel Tab) 25 mg PO HS [facility] Stop: 12/22/20 20:59 Last Admin: 11/24/20 21:40 Dose: 25 mg Documented by: Miscellaneous Information (Vancomycin Consult Active) 1 ea N/A UD PRN PRN Reason: Consult Stop: 12/14/20 13:12 Nystatin (Nystatin Susp 500,000 U/5 Ml Udc) 5 ml PO QID [facility] Stop: 11/26/20 16:59 Last Admin: 11/25/20 13:53 Dose: 5 ml Documented by: Ondansetron HCl (Ondansetron Inj 2 Mg/Ml 2 Ml Vial) 4 mg IV Q4H PRN PRN Reason: Nausea Stop: 12/14/20 12:29 Oxycodone HCl (Oxycodone Hcl Ir 5 Mg Tab (Immediate Release)) 7.5 mg PO Q6H PRN PRN Reason: Pain Stop: 11/28/20 13:00 Last Admin: 11/24/20 14:41 Dose: 7.5 mg Documented by: Pantoprazole Sodium (Pantoprazole 40 Mg Tab) 40 mg PO DAILY [facility] Stop: 12/15/20 08:59 Last Admin: 11/25/20 08:41 Dose: 40 mg Documented by: Potassium Chloride (Potassium Chloride Crtab 20 Meq Tabcr) 20 meq PO BID [facility] Stop: 12/18/20 20:59 Last Admin: 11/25/20 08:41 Dose: 20 meq Documented by: Pramipexole Dihydrochloride (Pramipexole Dihydrochlo 0.25 Mg Tab) 0.25 mg PO HS [facility] Stop: 12/14/20 20:59 Last Admin: 11/24/20 20:37 Dose: 0.25 mg Documented by: Prednisone (Prednisone 20 Mg Tab) 20 mg PO QAM [facility] Stop: 12/23/20 08:59 Last Admin: 11/25/20 08:41 Dose: 20 mg Documented by: Saccharomyces Boulardii (Saccharomyces Boulardii 250 Mg Cap) 250 mg PO DAILY [facility] Stop: 12/15/20 08:59 Last Admin: 11/25/20 08:41 Dose: 250 mg Documented by: Trazodone HCl (Trazodone Hcl 50 Mg Tab) 25 mg PO HS PRN PRN Reason: insomnia Stop: 12/14/20 12:29 Last Admin: 11/21/20 20:58 Dose: 25 mg Documented by: PG Care Time/CCT Total # of Minutes Spent Total Time Spent with Patient: Total time spent is greater than 50% in coordination of care (as documented) at patient's floor/unit and/or counseling patient: Coding Level of Care Code 45927 Subseq Hosp Care Lvl 2 Diagnoses Acute combined systolic and diastolic heart failure I50.41 Acute respiratory failure with hypoxia J96.01 Atrial fibrillation with rapid ventricular response I48.91 Peripheral arterial disease I73.9 Osteomyelitis M86.9 Depression F32.9 RLS (restless legs syndrome) G25.81 Anemia D64.9 Peripheral neuropathy G62.9 Peripheral neuropathy type: polyneuropathy, unspecified COPD exacerbation J44.1 Candidiasis of mouth and esophagus B37.81; B37.0 DVT prophylaxis Z29.9 (1) Peripheral neuropathy Peripheral neuropathy type: polyneuropathy, unspecified Qualified Code(s): G62.9 - Polyneuropathy, unspecified
[2020-11-25] MEDS: ERTAPENEM SODIUM 1,000 MG in SODIUM CHLORIDE 0.9% 50 ML IV SCH (20:14)
[2020-11-25] MEDS: PRAMIPEXOLE DIHYDROCHLO 0.25 MG TAB PO SCH (20:16)
[2020-11-25] MEDS: METOPROLOL SUCC 25MG EXT REL TAB PO SCH (20:17)
[2020-11-25] MEDS: oxyCODONE HCL IR 5 MG TAB (IMMEDIATE RELEASE) PO PRN (22:24)
[2020-11-26] MEDS: LORazepam 0.5 MG TAB SL PRN (02:00)
[2020-11-26] MEDS: VANCOMYCIN HCL 750 MG in SODIUM CHLORIDE 0.9% 250 ML IV SCH ×2 (03:17→21:00)
[2020-11-26 07:10] LABS: BUN Creatinine Ratio 46.6 (10-20); Calcium 9.6 mg/dl (8.5-10.1); Est GFR (African American) 68.9; Est GFR (Non-African American) 59.4; Magnesium 1.8 mg/dl (1.8-2.4); Potassium 3.9 mmol/L (3.5-5.1)
[2020-11-26 07:15] LABS: Phosphorus 4.6 mg/dl (2.5-4.9)
[2020-11-26] MEDS: ASPIRIN 81 MG ECTAB PO SCH (08:28)
[2020-11-26] MEDS: NYSTATIN SUSP 500,000 U/5 ML UDC PO SCH ×2 (08:28→13:24)
[2020-11-26] MEDS: FUROSEMIDE 40 MG in SYRINGE 0 ML IV SCH (08:28)
[2020-11-26] MEDS: ATORVASTATIN 40 MG TAB PO SCH (08:28)
[2020-11-26] MEDS: SACCHAROMYCES BOULARDII 250 MG CAP PO SCH (08:29)
[2020-11-26] MEDS: predniSONE 10 MG TABLET PO SCH (08:29)
[2020-11-26] MEDS: POTASSIUM CHLORIDE CRTAB 20 MEQ TABCR PO SCH ×2 (08:30→20:58)
[2020-11-26] MEDS: PANTOprazole 40 MG TAB PO SCH (08:30)
[2020-11-26] MEDS: APIXABAN 5 MG TABLET PO SCH ×2 (08:30→20:58)
[2020-11-26] MEDS: GABAPENTIN 300 MG CAP PO SCH ×3 (08:30→20:58)
[2020-11-26] MEDS: METOPROLOL SUCC 50MG EXT REL TAB PO SCH (08:30)
--- NOTE | 2020-11-26 12:31 | Hospitalist Progress Note ---
Date of Service November 26, 2020 Assessment & Plan (1) Acute combined systolic and diastolic heart failure: improving - negative 14.7 liters by I/O weights prior this year were 57kg, now down to that CT chest 11/21 with ongoing edema/effusions. continue Lasix 40mg IV BID, tolerating well, BUN and Cr stable will decrease to Lasix 40mg IV daily as she appears to be approaching euvolemia continue metoprolol xl, increased to BID CHF clinic consult and recs appreciated. If BP will allow ultimately will need low-dose SAMY or ARB, hold for today as will continue with aggressive diuresis (2) Acute respiratory failure with hypoxia: Primary culprit is CHF. CT chest 11/21 with extensive b/l infiltrates. Repeat COVID/flu/RSV negative. If there is any infectious component in the lungs ertapenem and vanco should cover a variety of pathogens (not pseudomonas however). Speech therapy consult requested for swallow eval to r/o aspiration as a cause of CT findings - aspiration NOT suspected. Continue to diurese. Cont Steroids; weaned to 20mg daily on 11/23, drop to 10mg today, three more days then stop No wheezing on exam Continue Nebs/supportive care. saturations 91-92% on 2L, no distress (3) Atrial fibrillation with rapid ventricular response: Had first episode while awaiting admission in ER. Did not have symptoms during that spell. 2nd episode on 11/22 - lasting several hours, then spontaneously converting back to NSR. Cont metoprolol xl 50mg qam and 25mg at HS. Continue eliquis BID. (4) Peripheral arterial disease: S/p right femoral to anterior tibial composite reverse saphenous vein bypass with harvesting of the left great saphenous vein with Dr. Robin on 11/06/2020. Rogers removed 11/20/20. Continue aspirin and apixaban Continue statin Continues with very good pulses and perfusion on exam. Dr Robin saw patient 11/21 - will need partial amputation of 4th right toe, this is scheduled for 11/27 (Monday) (5) Osteomyelitis: Concern for osteomyelitis of right foot on previous hospital stay. Right Foot MRI on 11/04 was an extremely poor study and equivocal for osteomyelitis however. study results from 11/04: "FINDINGS: Very Limited exam secondary to extensive motion artifact. The study was unable to be completed secondary to reported patient pain. Axial STIR images were not c ompleted. There is moderate diffuse subcutaneous and intramuscular and deep tissue edema throughout the foot. No fluid collection or discrete mass. No definite intermetatarsal bursitis. Moderate bone marrow edema is noted involving the fifth proximal phalanx. Cortical thickening is also noted with the previously described fracture involving the proximal phalangeal base not definitively seen. Additional areas of bone marrow edema are suggested within the first and fourth distal phalanges. Questioned cortical irregularity involving the medial aspect of the first distal phalangeal tuft is better appreciated on comparison radiographs." [id number], [facility] recommended vanc/ertapenem x 6 weeks during that hospital stay. (End date: 01/14/2021). RUE PICC line in place. Recent inflammatory markers improved. No fever/other infectious symptoms. Ulceration side of right foot - continue wound care. (6) Depression: - Continue home trazodone - Ativan SL PRN for anxiety (7) RLS (restless legs syndrome): Continue home pramipexole Fe studies acceptable (8) Anemia: b12, folate, iron studies acceptable likely anemia of chronic disease Hb 9.3 on 11/23 (9) Peripheral neuropathy: improved with increase in gabapentin to 300mg TID. Consider addition of cymbalta if pain persists. b12 level wnl. Cont oxycodone 7.5mg q6h prn. (10) COPD exacerbation: Continue prednisone, nebs, supportive care. Wean prednisone to 20mg today (11) Candidiasis of mouth and esophagus: Continue nystatin solution Resolved (12) DVT prophylaxis: Apixaban continue PT/OT ultimately patient wishes to return to [facility] post-d/c Admission and Anticipated Discharge Date Admission Date: November 14, 2020 Subjective patient doing well, continues to diurese on Lasix 40mg IV Cr is stable, BUN going up eating and drinking well, breathing stable Dr. Robin will take to OR tomorrow for quick partial amputation of 4th toe Review of Systems Review of Systems: All systems reviewed & are unremarkable except as noted in Subjective Physical Exam Constitutional: WD/WN, vitals as above no acute distress Neck: trachea midline, no thyromegaly Respiratory: normal respiratory effort, lungs clear to auscultation Cardiovascular: Rate/Rhythm: regular rate and regular rhythm Heart Sounds: normal S1 and normal S2; no murmur Vessels: no JVD Extremities: normal capillary refill and + edema (biaterally, much improved) Gastrointestinal (Abdomen): normal bowel sounds, soft, nontender, no hepatosplenomegaly Musculoskeletal: no cyanosis or clubbing, extremities motor strength 5/5 Skin: no rashes, warm and dry Neurologic: patellar DTR's 2+ bilat, sensation intact and PERRL, EOMI, accommodation nl, no face palsy, no dysarthria Psychiatric: A+Ox3, euthymic affect Lymphatic: no cervical or axillary lymphadenopathy Results & Data Results & Data ([facility]) Vital Signs (Past 12 Hours) Vital Signs Temp Pulse Pulse Pulse Resp BP Pulse Ox 11/26/20 11:35 36.8 C 97 H 18 107/66 90 11/26/20 09:18 67 11/26/20 08:09 36.4 C L 69 16 114/70 90 11/26/20 03:12 36.8 C 69 18 131/77 93 Laboratory Results Laboratory Results - last 24 hr 11/26/20 05:51 Sodium 139 Potassium 3.9 Chloride 103 Carbon Dioxide 31 Anion Gap 5.0 BUN 44 H Creatinine 0.95 Est Cr Clr Drug Dosing 42.0 Est GFR ( Amer) 68.9 Est GFR (Non-Af Amer) 59.4 BUN/Creatinine Ratio 46.6 H Glucose 81 Calcium 9.6 Phosphorus 4.6 Magnesium 1.8 Medications Administered Current Inpatient Medications Acetaminophen (Acetaminophen 325 Mg Tab) 650 mg PO Q4H PRN PRN Reason: pain/fever Stop: 12/14/20 12:29 Last Admin: 11/17/20 20:21 Dose: 650 mg Documented by: Albuterol (Albut/Ipratrop 3mg/0.5mg Neb 3 Ml Vial) 3 ml NEB Q4R PRN PRN Reason: Shortness Of Breath Or Wheezing Stop: 12/15/20 10:59 Last Admin: 11/21/20 21:02 Dose: 3 ml Documented by: Apixaban (Apixaban 5 Mg Tablet) 5 mg PO BID [facility] Stop: 12/14/20 20:59 Last Admin: 11/26/20 08:30 Dose: 5 mg Documented by: Aspirin (Aspirin 81 Mg Ectab) 81 mg PO DAILY [facility] Stop: 12/15/20 08:59 Last Admin: 11/26/20 08:28 Dose: 81 mg Documented by: Atorvastatin Calcium (Atorvastatin 40 Mg Tab) 40 mg PO QAM [facility] Stop: 12/15/20 08:59 Last Admin: 11/26/20 08:28 Dose: 40 mg Documented by: Gabapentin (Gabapentin 300 Mg Cap) 300 mg PO TID [facility] Stop: 12/19/20 08:59 Last Admin: 11/26/20 13:24 Dose: 300 mg Documented by: Heparin Sodium (Beef Lung) (Heparin 10 Unit/Ml 5 Ml Flush) 5 ml FLUSH PRN PRN PRN Reason: Flush Stop: 12/15/20 01:00 Ertapenem 1,000 mg/ Sodium (Chloride) 60 mls @ 100 mls/hr IV Q24H NARESH; Protocol Stop: 12/26/20 20:59 Last Infusion: 11/25/20 20:55 Dose: Infused Documented by: Vancomycin HCl 750 mg/ Sodium (Chloride) 265 mls @ 200 mls/hr IV Q18H NARESH; Protocol Stop: 01/01/21 03:59 Last Infusion: 11/26/20 04:55 Dose: Infused Documented by: Diltiazem HCl 125 mg/ Dextrose 125 mls @ 5 mls/hr IV .Q24H NARESH; Protocol Stop: 12/22/20 09:29 Last Titration: 11/22/20 15:37 Dose: Infused Documented by: Furosemide 40 mg/ Syringe 4 mls @ 4 mls/min IV DAILY [facility] Stop: 12/27/20 08:59 Lorazepam (Lorazepam 0.5 Mg Tab) 0.5 mg SL Q4H PRN PRN Reason: Anxiety/Agitation Stop: 12/14/20 17:41 Last Admin: 11/26/20 02:00 Dose: 0.5 mg Documented by: Metoprolol Succinate (Metoprolol Succ 50mg Ext Rel Tab) 50 mg PO QAM [facility] Stop: 12/15/20 12:59 Last Admin: 11/26/20 08:30 Dose: 50 mg Documented by: Metoprolol Succinate (Metoprolol Succ 25mg Ext Rel Tab) 25 mg PO HS [facility] Stop: 12/22/20 20:59 Last Admin: 11/25/20 20:17 Dose: 25 mg Documented by: Miscellaneous Information (Vancomycin Consult Active) 1 ea N/A UD PRN PRN Reason: Consult Stop: 12/14/20 13:12 Nystatin (Nystatin Susp 500,000 U/5 Ml Udc) 5 ml PO QID NARESH Stop: 11/26/20 16:59 Last Admin: 11/26/20 13:24 Dose: 5 ml Documented by: Ondansetron HCl (Ondansetron Inj 2 Mg/Ml 2 Ml Vial) 4 mg IV Q4H PRN PRN Reason: Nausea Stop: 12/14/20 12:29 Oxycodone HCl (Oxycodone Hcl Ir 5 Mg Tab (Immediate Release)) 7.5 mg PO Q6H PRN PRN Reason: Pain Stop: 11/28/20 13:00 Last Admin: 11/25/20 22:24 Dose: 7.5 mg Documented by: Pantoprazole Sodium (Pantoprazole 40 Mg Tab) 40 mg PO DAILY NARESH Stop: 12/15/20 08:59 Last Admin: 11/26/20 08:30 Dose: 40 mg Documented by: Potassium Chloride (Potassium Chloride Crtab 20 Meq Tabcr) 20 meq PO BID NARESH Stop: 12/18/20 20:59 Last Admin: 11/26/20 08:30 Dose: 20 meq Documented by: Pramipexole Dihydrochloride (Pramipexole Dihydrochlo 0.25 Mg Tab) 0.25 mg PO HS [facility] Stop: 12/14/20 20:59 Last Admin: 11/25/20 20:16 Dose: 0.25 mg Documented by: Prednisone (Prednisone 10 Mg Tablet) 10 mg PO QAM NARESH Stop: 12/26/20 08:59 Last Admin: 11/26/20 08:29 Dose: 10 mg Documented by: Saccharomyces Boulardii (Saccharomyces Boulardii 250 Mg Cap) 250 mg PO DAILY NARESH Stop: 12/15/20 08:59 Last Admin: 11/26/20 08:29 Dose: 250 mg Documented by: Trazodone HCl (Trazodone Hcl 50 Mg Tab) 25 mg PO HS PRN PRN Reason: insomnia Stop: 12/14/20 12:29 Last Admin: 11/21/20 20:58 Dose: 25 mg Documented by: PG Care Time/CCT Total # of Minutes Spent Total Time Spent with Patient: Total time spent is greater than 50% in coordination of care (as documented) at patient's floor/unit and/or counseling patient: Coding Level of Care Code 01340 Subseq Hosp Care Lvl 2 Diagnoses Acute combined systolic and diastolic heart failure I50.41 Acute respiratory failure with hypoxia J96.01 Atrial fibrillation with rapid ventricular response I48.91 Peripheral arterial disease I73.9 Osteomyelitis M86.9 Depression F32.9 RLS (restless legs syndrome) G25.81 Anemia D64.9 Peripheral neuropathy G62.9 Peripheral neuropathy type: polyneuropathy, unspecified COPD exacerbation J44.1 Candidiasis of mouth and esophagus B37.81; B37.0 DVT prophylaxis Z29.9 (1) Peripheral neuropathy Peripheral neuropathy type: polyneuropathy, unspecified Qualified Code(s): G62.9 - Polyneuropathy, unspecified
--- NOTE | 2020-11-26 12:59 | Surgery Progress Note ---
Date of Service November 26, 2020 Assessment & Plan (1) Gangrene of toe of right foot: Patient for right 4th toe amputation tomorrow. I have discussed the risks options and benefits of the procedure with the patient. The patient understands the risks options and benefits and agrees to the procedure. Admission and Anticipated Discharge Date Admission Date: November 14, 2020 Subjective No complaints of leg or foot pain Physical Exam Constitutional: well developed and well nourished Skin: tip of right 4th toe without change Results & Data ([facility]) Vital Signs (Past 12 Hours) Vital Signs Temp Pulse Pulse Pulse Resp BP Pulse Ox 11/26/20 11:35 36.8 C 97 H 18 107/66 90 11/26/20 09:18 67 11/26/20 08:09 36.4 C L 69 16 114/70 90 11/26/20 03:12 36.8 C 69 18 131/77 93
[2020-11-26] MEDS: PRAMIPEXOLE DIHYDROCHLO 0.25 MG TAB PO SCH (20:57)
[2020-11-26] MEDS: METOPROLOL SUCC 25MG EXT REL TAB PO SCH (20:58)
[2020-11-26] MEDS: ERTAPENEM SODIUM 1,000 MG in SODIUM CHLORIDE 0.9% 50 ML IV SCH (20:59)
--- NOTE | 2020-11-27 07:34 | History & Physical Bridge Note ---
Date of Service November 27, 2020 History & Physical Bridge Note Patient for amputation of her right 4th toe. I have discussed the risks options and benefits of the procedure with the patient. The patient understands the risks options and benefits and agrees to the procedure. I have examined the patient, reviewed the History & Physical and in the interval since the performance of the History & Physical I have noted the following changes of clinical significance: no changes noted
[2020-11-27] MEDS ORDERED: LIDOCAINE HCL 2% 2 ML VIAL/AMP(20MG/ML) INFIL ONE (07:43)
[2020-11-27] MEDS ORDERED: PROPOFOL IV EMULSION 10 MG/ML 20 ML VIAL IV ONE (07:43)
[2020-11-27] MEDS ORDERED: ONDANSETRON INJ 2 MG/ML 2 ML VIAL ONE (07:43)
[2020-11-27] MEDS ORDERED: fentaNYL citrate 100 MCG/2 ML VIAL ONE (07:44)
[2020-11-27] MEDS ORDERED: MIDAZOLAM HCL 1 MG/ML 2ML VIAL ONE (07:45)
[2020-11-27] MEDS ORDERED: BUPIVACAINE/EPINEPHRINE 0.5% MPF 1:200,000 30 ML VIAL ONE (07:59)
[2020-11-27] MEDS ORDERED: LIDOCAINE HCL 1% 20 ML VIAL ONE (07:59)
[2020-11-27 08:19] LABS: BUN Creatinine Ratio 40.7 (10-20); Calcium 9.8 mg/dl (8.5-10.1); Creatinine Clr Calc Pharmacy 44.2 ml/min; Est GFR (African American) 73.5; Est GFR (Non-African American) 63.4; Potassium 3.9 mmol/L (3.5-5.1)
--- NOTE | 2020-11-27 08:45 | Operative Report ---
Post Operative Report Pre & Post Diagnosis Operation Date: 11/27/20 08:00 Pre-Op Diagnosis: Gangrene of toe of right 4th foot Post-Op Diagnosis: Gangrene of toe of right 4th foot I identified the patient and participated in the time-out.: Yes Procedure Operation Date: 11/27/20 08:00 Actual Procedures p Right 4th Toe Amputation(Right) - Garcia Robin MD Surgeon Garcia Robin MD [employer] Sancho,PAC Estimated Blood Loss 0 Findings Consistent with Post-Op Diagnosis Specimens Tip of the right fourth toe Anesthesia Type MAC Complications none Disposition Accompanied Patient To Recovery: No Disposition: Recovery Room Indications This is a 75-year-old female who underwent right leg bypass for limb ischemia with ulcerations. The ulcer on the lateral aspect of her foot is almost completely healed. She has demarcated and has gangrene of the tip of the right fourth toe. Amputation of the fourth toe tip was recommended. I have discussed the risks options and benefits of the procedure with the patient. The patient understands the risks options and benefits and agrees to the procedure. Description of Procedure Patient was taken the operating placed supine position. The foot was then prepped and draped in a sterile manner. Patient was identified and timeout was performed. Local anesthesia using 1% lidocaine was used for a digital block of the fourth toe. After this was accomplished the incision was made along the demarcation line in the distal phalanx. All tissue was removed. The bone was then transected back to the proximal phalanx. The bone was fairly firm. Once the bone was removed out of hemostasis was obtained. Wound was then closed with interrupted 3-0 nylon sutures. Sterile dressings were applied.The patient left the operation room in satisfactory condition and tolerated the procedure well. All needle and sponge counts were correct at the end of the procedure. I attest to the content of the Intraoperative Record and any orders documented therein. Any exceptions are noted below.
[2020-11-27] MEDS ORDERED: FUROSEMIDE 40 MG in SYRINGE 0 ML IV SCH (09:00)
[2020-11-27] MEDS: PANTOprazole 40 MG TAB PO SCH (09:30)
[2020-11-27] MEDS: GABAPENTIN 300 MG CAP PO SCH ×3 (09:30→21:19)
[2020-11-27] MEDS: ATORVASTATIN 40 MG TAB PO SCH (09:30)
[2020-11-27] MEDS: predniSONE 10 MG TABLET PO SCH (09:30)
[2020-11-27] MEDS: SACCHAROMYCES BOULARDII 250 MG CAP PO SCH (09:31)
[2020-11-27] MEDS: POTASSIUM CHLORIDE CRTAB 20 MEQ TABCR PO SCH ×2 (09:31→21:19)
[2020-11-27] MEDS: ASPIRIN 81 MG ECTAB PO SCH (09:31)
[2020-11-27] MEDS: APIXABAN 5 MG TABLET PO SCH ×2 (09:31→21:19)
--- NOTE | 2020-11-27 10:28 | Anesthesiology Progress Note ---
Date of Service November 27, 2020 Anesthesia Post Procedure Vital Signs Vital Signs: Temp Pulse Pulse Pulse Resp BP Pulse Ox 11/27/20 10:11 75 96 H 108/70 11/27/20 09:56 73 15 108/73 96 11/27/20 09:41 70 15 103/71 93 11/27/20 09:32 68 11/27/20 09:26 36.8 C 69 15 106/61 96 11/27/20 09:10 36.8 C 70 16 99/62 L 95 11/27/20 09:00 72 22 116/69 100 11/27/20 08:52 36.4 C L 71 17 109/65 100 11/27/20 07:33 36.7 C 73 18 122/70 99 11/27/20 07:00 71 11/27/20 02:55 36.9 C 69 20 131/72 90 11/26/20 23:22 37.0 C 77 19 128/74 90 11/26/20 19:33 36.8 C 71 19 97/59 L 91 11/26/20 16:08 36.7 C 71 16 125/72 90 11/26/20 14:53 73 11/26/20 11:35 36.8 C 97 H 18 107/66 90 Pain Intensity Bilateral Ankle: Pain Intensity: 3 Right Foot: Pain Intensity: 2 Transfer of Care Handoff Completed per policy Notes Mental Status: alert / awake / arousable and participated in evaluation Patient Amnestic to Procedure: Yes Nausea / Vomiting: adequately controlled Pain: adequately controlled Airway Patency, RR, SpO2: stable & adequate BP & HR: stable & adequate Hydration State: stable & adequate Anesthetic Complications: no major complications apparent
[2020-11-27] MEDS: METOPROLOL SUCC 50MG EXT REL TAB PO SCH (10:45)
--- NOTE | 2020-11-27 12:22 | Hospitalist Progress Note ---
Date of Service November 27, 2020 Assessment & Plan (1) Acute combined systolic and diastolic heart failure: improving - negative 14.7 liters by I/O weights prior this year were 57kg, now down to that CT chest 11/21 with ongoing edema/effusions. continue Lasix 40mg IV BID, tolerating well, BUN and Cr stable increase Lasix back to 40mg IV BID start strict fluid restriction continue metoprolol xl, increased to BID CHF clinic consult and recs appreciated. If BP will allow ultimately will need low-dose SAMY or ARB, hold for today as will continue with aggressive diuresis (2) Acute respiratory failure with hypoxia: Primary culprit is CHF. CT chest 11/21 with extensive b/l infiltrates. Repeat COVID/flu/RSV negative. If there is any infectious component in the lungs ertapenem and vanco should cover a variety of pathogens (not pseudomonas however). Speech therapy consult requested for swallow eval to r/o aspiration as a cause of CT findings - aspiration NOT suspected. Continue to diurese. Cont Steroids; weaned to 20mg daily on 11/23, drop to 10mg today, three more days then stop No wheezing on exam Continue Nebs/supportive care. saturations 91-92% on 2L, no distress (3) Atrial fibrillation with rapid ventricular response: Had first episode while awaiting admission in ER. Did not have symptoms during that spell. 2nd episode on 11/22 - lasting several hours, then spontaneously converting back to NSR. Cont metoprolol xl 50mg qam and 25mg at HS. Continue eliquis BID, might need to hold this with bleeding (4) Peripheral arterial disease: S/p right femoral to anterior tibial composite reverse saphenous vein bypass with harvesting of the left great saphenous vein with Dr. Robin on 11/06/2020. Janet removed 11/20/20. Continue aspirin and apixaban Continue statin Continues with very good pulses and perfusion on exam. s/p partial amputation of 4th right toe on 11/27 (5) Osteomyelitis: Concern for osteomyelitis of right foot on previous hospital stay. Right Foot MRI on 11/04 was an extremely poor study and equivocal for osteomyelitis however. study results from 11/04: "FINDINGS: Very Limited exam secondary to extensive motion artifact. The study was unable to be completed secondary to reported patient pain. Axial STIR images were not completed. There is moderate diffuse subcutaneous and intramuscular and deep tissue edema throughout the foot. No fluid collection or discrete mass. No definite intermetatarsal bursitis. Moderate bone marrow edema is noted involving the fifth proximal phalanx. Cortical thickening is also noted with the previously described fracture involving the proximal phalangeal base not definitively seen. Additional areas of bone marrow edema are suggested within the first and fourth distal phalanges. Questioned cortical irregularity involving the medial aspect of the first distal phalangeal tuft is better appreciated on comparison radiographs." [id number], Garry ID recommended vanc/ertapenem x 6 weeks during that hospital stay. (End date: 01/14/2021). RUE PICC line in place. Recent inflammatory markers improved. No fever/other infectious symptoms. Ulceration side of right foot - continue wound care. (6) Depression: - Continue home trazodone - Ativan SL PRN for anxiety (7) RLS (restless legs syndrome): Continue home pramipexole Fe studies acceptable (8) Anemia: b12, folate, iron studies acceptable likely anemia of chronic disease Hb 9.3 on 11/23, check tomorrow with bleeding from toe (9) Peripheral neuropathy: improved with increase in gabapentin to 300mg TID. Consider addition of cymbalta if pain persists. b12 level wnl. Cont oxycodone 7.5mg q6h prn. (10) COPD exacerbation: Continue prednisone, nebs, supportive care. Wean prednisone to 20mg today (11) Candidiasis of mouth and esophagus: Continue nystatin solution Resolved (12) DVT prophylaxis: Apixaban, likely hold tomorrow if bleeding not better controlled continue PT/OT ultimately patient wishes to return to [facility] post-d/c, will likely need to be here over weekend Admission and Anticipated Discharge Date Admission Date: November 14, 2020 Subjective patient doing okay after 4th toe partial amputation having a lot of bleeding, can give pressure dressing on toe but nothing above ankle per vascular surgery Cr and K stable, making a lot of urine, not following fluid restriction, will add one today increase Lasix back to BID eating okay, breathing is stable can go to [facility] once bleeding resolved with toe Review of Systems Review of Systems: All systems reviewed & are unremarkable except as noted in Subjective Physical Exam Constitutional: WD/WN, vitals as above no acute distress Neck: trachea midline, no thyromegaly Respiratory: normal respiratory effort, lungs clear to auscultation Cardiovascular: Rate/Rhythm: regular rate and regular rhythm Heart Sounds: normal S1 and normal S2; no murmur Vessels: no JVD Extremities: normal capillary refill and + edema (biaterally, much improved) Gastrointestinal (Abdomen): normal bowel sounds, soft, nontender, no hepatosplenomegaly Musculoskeletal: no cyanosis or clubbing, extremities motor strength 5/5 Skin: no rashes, warm and dry Neurologic: patellar DTR's 2+ bilat, sensation intact and PERRL, EOMI, accommodation nl, no face palsy, no dysarthria Psychiatric: A+Ox3, euthymic affect Lymphatic: no cervical or axillary lymphadenopathy Results & Data Results & Data ([facility]) Vital Signs (Past 12 Hours) Vital Signs Temp Pulse Pulse Resp BP Pulse Ox 11/27/20 11:57 36.5 C 67 18 94/67 L 98 11/27/20 10:41 68 15 85/47 L 98 11/27/20 10:11 75 96 H 108/70 11/27/20 09:56 73 15 108/73 96 11/27/20 09:41 70 15 103/71 93 11/27/20 09:32 68 11/27/20 09:26 36.8 C 69 15 106/61 96 11/27/20 09:10 36.8 C 70 16 99/62 L 95 11/27/20 09:00 72 22 116/69 100 11/27/20 08:52 36.4 C L 71 17 109/65 100 11/27/20 07:33 36.7 C 73 18 122/70 99 11/27/20 07:00 71 11/27/20 02:55 36.9 C 69 20 131/72 90 Laboratory Results Laboratory Results - last 24 hr 11/27/20 07:16 Sodium 138 Potassium 3.9 Chloride 104 Carbon Dioxide 27 Anion Gap 7.0 BUN 37 H Creatinine 0.90 Est Cr Clr Drug Dosing 44.2 Est GFR ( Amer) 73.5 Est GFR (Non-Af Amer) 63.4 BUN/Creatinine Ratio 40.7 H Glucose 89 Calcium 9.8 Medications Administered Current Inpatient Medications Acetaminophen (Acetaminophen 325 Mg Tab) 650 mg PO Q4H PRN PRN Reason: pain/fever Stop: 12/14/20 12:29 Last Admin: 11/17/20 20:21 Dose: 650 mg Documented by: Albuterol (Albut/Ipratrop 3mg/0.5mg Neb 3 Ml Vial) 3 ml NEB Q4R PRN PRN Reason: Shortness Of Breath Or Wheezing Stop: 12/15/20 10:59 Last Admin: 11/21/20 21:02 Dose: 3 ml Documented by: Apixaban (Apixaban 5 Mg Tablet) 5 mg PO BID NARESH Stop: 12/14/20 20:59 Last Admin: 11/27/20 09:31 Dose: 5 mg Documented by: Aspirin (Aspirin 81 Mg Ectab) 81 mg PO DAILY NARESH Stop: 12/15/20 08:59 Last Admin: 11/27/20 09:31 Dose: 81 mg Documented by: Atorvastatin Calcium (Atorvastatin 40 Mg Tab) 40 mg PO QAM NARESH Stop: 12/15/20 08:59 Last Admin: 11/27/20 09:30 Dose: 40 mg Documented by: Gabapentin (Gabapentin 300 Mg Cap) 300 mg PO TID NARESH Stop: 12/19/20 08:59 Last Admin: 11/27/20 09:30 Dose: 300 mg Documented by: Heparin Sodium (Beef Lung) (Heparin 10 Unit/Ml 5 Ml Flush) 5 ml FLUSH PRN PRN PRN Reason: Flush Stop: 12/15/20 01:00 Ertapenem 1,000 mg/ Sodium (Chloride) 60 mls @ 100 mls/hr IV Q24H NARESH; Protocol Stop: 12/26/20 20:59 Last Infusion: 11/27/20 07:11 Dose: Infused Documented by: Vancomycin HCl 750 mg/ Sodium (Chloride) 265 mls @ 200 mls/hr IV Q18H NARESH; Protocol Stop: 01/01/21 03:59 Last Infusion: 11/27/20 07:11 Dose: Infused Documented by: Diltiazem HCl 125 mg/ Dextrose 125 mls @ 5 mls/hr IV .Q24H NARESH; Protocol Stop: 12/22/20 09:29 Last Titration: 11/22/20 15:37 Dose: Infused Documented by: Furosemide 40 mg/ Syringe 4 mls @ 4 mls/min IV DAILY NARESH Stop: 12/27/20 08:59 Last Admin: 11/27/20 09:30 Dose: 4 mls/min Documented by: Lorazepam (Lorazepam 0.5 Mg Tab) 0.5 mg SL Q4H PRN PRN Reason: Anxiety/Agitation Stop: 12/14/20 17:41 Last Admin: 11/26/20 02:00 Dose: 0.5 mg Documented by: Metoprolol Succinate (Metoprolol Succ 50mg Ext Rel Tab) 50 mg PO QAM [facility] Stop: 12/15/20 12:59 Last Admin: 11/27/20 10:45 Dose: Not Given Documented by: Metoprolol Succinate (Metoprolol Succ 25mg Ext Rel Tab) 25 mg PO [facility] Stop: 12/22/20 20:59 Last Admin: 11/26/20 20:58 Dose: 25 mg Documented by: Miscellaneous Information (Vancomycin Consult Active) 1 ea N/A UD PRN PRN Reason: Consult Stop: 12/14/20 13:12 Ondansetron HCl (Ondansetron Inj 2 Mg/Ml 2 Ml Vial) 4 mg IV Q4H PRN PRN Reason: Nausea Stop: 12/14/20 12:29 Oxycodone HCl (Oxycodone Hcl Ir 5 Mg Tab (Immediate Release)) 7.5 mg PO Q6H PRN PRN Reason: Pain Stop: 11/28/20 13:00 Last Admin: 11/25/20 22:24 Dose: 7.5 mg Documented by: Pantoprazole Sodium (Pantoprazole 40 Mg Tab) 40 mg PO DAILY [facility] Stop: 12/15/20 08:59 Last Admin: 11/27/20 09:30 Dose: 40 mg Documented by: Potassium Chloride (Potassium Chloride Crtab 20 Meq Tabcr) 20 meq PO BID NARESH Stop: 12/18/20 20:59 Last Admin: 11/27/20 09:31 Dose: 20 meq Documented by: Pramipexole Dihydrochloride (Pramipexole Dihydrochlo 0.25 Mg Tab) 0.25 mg PO [facility] Stop: 12/14/20 20:59 Last Admin: 11/26/20 20:57 Dose: 0.25 mg Documented by: Prednisone (Pred[facility]one 10 Mg Tablet) [facility] Stop: 12/26/20 08:59 Last Admin: 11/27/20 09:30 Dose: 10 mg Documented by: Saccharomyces Boulardii (Saccharomyces Boulardii 250 Mg Cap) 250 mg PO DAILY NARESH Stop: 12/15/20 08:59 Last Admin: 11/27/20 09:31 Dose: 250 mg Documented by: Trazodone HCl (Trazodone Hcl 50 Mg Tab) 25 mg PO HS PRN PRN Reason: insomnia Stop: 12/14/20 12:29 Last Admin: 11/21/20 20:58 Dose: 25 mg Documented by: PG Care Time/CCT Total # of Minutes Spent Total Time Spent with Patient: Total time spent is greater than 50% in coordination of care (as documented) at patient's floor/unit and/or counseling patient: Coding Level of Care Code 26942 Subseq Hosp Care Lvl 3 Diagnoses Acute combined systolic and diastolic heart failure I50.41 Acute respiratory failure with hypoxia J96.01 Atrial fibrillation with rapid ventricular response I48.91 Peripheral arterial disease I73.9 Osteomyelitis M86.9 Depression F32.9 RLS (restless legs syndrome) G25.81 Anemia D64.9 Peripheral neuropathy G62.9 Peripheral neuropathy type: polyneuropathy, unspecified COPD exacerbation J44.1 Candidiasis of mouth and esophagus B37.81; B37.0 DVT prophylaxis Z29.9 (1) Peripheral neuropathy Peripheral neuropathy type: polyneuropathy, unspecified Qualified Code(s): G62.9 - Polyneuropathy, unspecified
[2020-11-27] MEDS: VANCOMYCIN HCL 750 MG in SODIUM CHLORIDE 0.9% 250 ML IV SCH (16:59)
[2020-11-27] MEDS: FUROSEMIDE 40 MG in SYRINGE 0 ML IV SCH (16:59)
[2020-11-27] MEDS: ERTAPENEM SODIUM 1,000 MG in SODIUM CHLORIDE 0.9% 50 ML IV SCH (21:18)
[2020-11-27] MEDS: PRAMIPEXOLE DIHYDROCHLO 0.25 MG TAB PO SCH (21:19)
[2020-11-27] MEDS: METOPROLOL SUCC 25MG EXT REL TAB PO SCH (21:19)
[2020-11-28] MEDS: APIXABAN 5 MG TABLET PO SCH (08:45)
[2020-11-28] MEDS: PANTOprazole 40 MG TAB PO SCH (08:45)
[2020-11-28] MEDS: POTASSIUM CHLORIDE CRTAB 20 MEQ TABCR PO SCH ×2 (08:45→21:24)
[2020-11-28] MEDS: ASPIRIN 81 MG ECTAB PO SCH (08:45)
[2020-11-28] MEDS: ATORVASTATIN 40 MG TAB PO SCH (08:45)
[2020-11-28] MEDS: FUROSEMIDE 40 MG in SYRINGE 0 ML IV SCH ×2 (08:45→16:43)
[2020-11-28] MEDS: SACCHAROMYCES BOULARDII 250 MG CAP PO SCH (08:45)
[2020-11-28] MEDS: predniSONE 10 MG TABLET PO SCH (08:45)
[2020-11-28] MEDS: METOPROLOL SUCC 50MG EXT REL TAB PO SCH (08:46)
[2020-11-28] MEDS: GABAPENTIN 300 MG CAP PO SCH ×3 (08:46→21:25)
[2020-11-28] MEDS: oxyCODONE HCL IR 5 MG TAB (IMMEDIATE RELEASE) PO PRN (08:55)
[2020-11-28] MEDS ORDERED: VANCOMYCIN TROUGH ONE (09:30)
[2020-11-28 09:33] LABS: Hematocrit (blood only) 27.6 % (37-47); Mean Corpuscular Hemoglobin 28.2 pg (25-34); Mean Corpuscular Hgb Conc 32.6 g/dL (32-36); Mean Corpuscular Volume 86.5 fL (80-100); Platelet Count 277 K/uL (130-400); RDW Coefficient of Variation 15.8 % (11.5-14.5); RDW Standard Deviation 49.2 fL (36.4-46.3); Red Blood Count 3.19 M/uL (4.2-5.4); White Blood Count 11.03 K/uL (4.8-10.8)
[2020-11-28 09:49] LABS: BUN Creatinine Ratio 34.8 (10-20); Calcium 9.5 mg/dl (8.5-10.1); Est GFR (African American) 78.8; Potassium 3.8 mmol/L (3.5-5.1)
[2020-11-28] MEDS ORDERED: SURGICEL FIBRILLAR HEMOSTAT 1 X 2IN TOP ONE (11:10)
[2020-11-28] MEDS: VANCOMYCIN HCL 750 MG in SODIUM CHLORIDE 0.9% 250 ML IV SCH (11:11)
--- NOTE | 2020-11-28 11:14 | Pharmacy Report ---
Pharmacy Abx Dose Short Note - Date of Service November 28, 2020 - Assessment & Plan Assessment 75 year old F receiving IV Vancomycin and Invanz for treatment of R foot osteomyelitis * 6 weeks total of IV antibiotics per ID * s/p R 4th toe amputation yesterday on 11/27/20 Plan Vancomycin * Trough level of 18.1 mcg/mL (appropriately drawn) is therapeutic * Continue dose of 750 mg IV every 18 hours * Goal trough level for osteomyelitis : 15 to 20 mcg/mL * Patient has been on the current Vancomycin regimen since 11/20/20 with Vancomycin remaining within therapeutic range; consider rechecking trough in 3-4 days if she is still admitted Pharmacy will continue to follow and will adjust dose/frequency as necessary. Thank you.
--- NOTE | 2020-11-28 12:05 | Hospitalist Progress Note ---
Date of Service November 28, 2020 Assessment & Plan (1) Acute combined systolic and diastolic heart failure: improving - negative 17 liters by I/O but do not think it is accurate, missing her oral intake weights prior this year were 57kg, now down to that CT chest 11/21 with ongoing edema/effusions. continue Lasix 40mg IV BID, tolerating well, BUN and Cr stable start strict fluid restriction on 11/27 continue metoprolol xl, increased to BID CHF clinic consult and recs appreciated. If BP will allow ultimately will need low-dose SAMY or ARB, hold for today as will continue with aggressive diuresis (2) Acute respiratory failure with hypoxia: Primary culprit is CHF. CT chest 11/21 with extensive b/l infiltrates. Repeat COVID/flu/RSV negative. If there is any infectious component in the lungs ertapenem and vanco should cover a variety of pathogens (not pseudomonas however). Speech therapy consult requested for swallow eval to r/o aspiration as a cause of CT findings - aspiration NOT suspected. Continue to diurese. Cont Steroids; weaned to 20mg daily on 11/23, drop to 10mg today, three more days then stop No wheezing on exam Continue Nebs/supportive care. saturations 91-92% on 2L, no distress (3) Atrial fibrillation with rapid ventricular response: Had first episode while awaiting admission in ER. Did not have symptoms during that spell. 2nd episode on 11/22 - lasting several hours, then spontaneously converting back to NSR. Cont metoprolol xl 50mg qam and 25mg at HS. hold Eliquis for 48 hours, already got dose this morning due to bleeding from toe that is difficult to control (4) Peripheral arterial disease: S/p right femoral to anterior tibial composite reverse saphenous vein bypass with harvesting of the left great saphenous vein with Dr. Robin on 11/06/2020. Janet removed 11/20/20. Continue aspirin, hold Eliquis due to bleeding, just for 48 hours Continue statin Continues with very good pulses and perfusion on exam. s/p partial amputation of 4th right toe on 11/27 (5) Osteomyelitis: Concern for osteomyelitis of right foot on previous hospital stay. Right Foot MRI on 11/04 was an extremely poor study and equivocal for osteomyelitis however. study results from 11/04: "FINDINGS: Very Limited exam secondary to extensive motion artifact. The study was unable to be completed secondary to reported patient pain. Axial STIR images were not completed. There is moderate diffuse subcutaneous and intramuscular and deep tissue edema throughout the foot. No fluid collection or discrete mass. No definite intermetatarsal bursitis. Moderate bone marrow edema is noted involving the fifth proximal phalanx. Cortical thickening is also noted with the previously described fracture involving the proximal phalangeal base not definitively seen. Additional areas of bone marrow edema are suggested within the first and fourth distal phalanges. Questioned cortical irregularity involving the medial aspect of the first distal phalangeal tuft is better appreciated on comparison radiographs." [id number], Garry ID recommended vanc/ertapenem x 6 weeks during that hospital stay. (End date: 01/14/2021). RUE PICC line in place. Recent inflammatory markers improved. No fever/other infectious symptoms. Ulceration side of right foot - continue wound care. (6) Depression: - Continue home trazodone - Ativan SL PRN for anxiety (7) RLS (restless legs syndrome): Continue home pramipexole Fe studies acceptable (8) Anemia: b12, folate, iron studies acceptable likely anemia of chronic disease Hb 9.3 on 11/23, check tomorrow with bleeding from toe (9) Peripheral neuropathy: improved with increase in gabapentin to 300mg TID. Consider addition of cymbalta if pain persists. b12 level wnl. Cont oxycodone 7.5mg q6h prn. (10) COPD exacerbation: Continue prednisone, nebs, supportive care. Wean prednisone to 10mg (11) Candidiasis of mouth and esophagus: Continue nystatin solution Resolved (12) DVT prophylaxis: Apixaban, hold today starting with evening dose continue PT/OT ultimately patient wishes to return to [facility] post-d/c, will likely need to be here over weekend Admission and Anticipated Discharge Date Admission Date: November 14, 2020 Subjective patient doing okay, having a lot of issues with bleeding saturated dressing on right foot 5 times d/w Dr. Robin, he recommended surgicel application and SAMY wrap, okay for pressure on toe, just nothing above ankle with recent bypass surgery breathing well, no chest pain, no fever/chills labs reviewed, Hb is 9.0, no major drop even with bleeding from toe Cr and K stable on Lasix BID following fluid restriction Review of Systems Review of Systems: All systems reviewed & are unremarkable except as noted in Subjective Physical Exam Constitutional: WD/WN, vitals as above no acute distress Neck: trachea midline, no thyromegaly Respiratory: normal respiratory effort, lungs clear to auscultation Cardiovascular: Rate/Rhythm: regular rate and regular rhythm Heart Sounds: normal S1 and normal S2; no murmur Vessels: no JVD Extremities: normal capillary refill and + edema (biaterally, much improved) Gastrointestinal (Abdomen): normal bowel sounds, soft, nontender, no hepatosplenomegaly Musculoskeletal: no cyanosis or clubbing, extremities motor strength 5/5 (right 4th toe bleeding) Skin: no rashes, warm and dry Neurologic: patellar DTR's 2+ bilat, sensation intact and PERRL, EOMI, accommodation nl, no face palsy, no dysarthria Psychiatric: A+Ox3, euthymic affect Lymphatic: no cervical or axillary lymphadenopathy Results & Data Results & Data ([facility]) Vital Signs (Past 12 Hours) Vital Signs Temp Pulse Pulse Resp BP Pulse Ox 11/28/20 07:57 36.8 C 90 18 99/53 L 73 L 11/28/20 07:00 68 11/28/20 03:38 36.8 C 66 16 108/70 94 Laboratory Results Laboratory Results - last 24 hr 11/28/20 11/28/20 11/28/20 09:14 09:14 09:14 WBC 11.03 H RBC 3.19 L Hgb 9.0 L Hct 27.6 L MCV 86.5 MCH 28.2 MCHC 32.6 RDW Std Deviation 49.2 H RDW Coeff of Janie 15.8 H Plt Count 277 MPV 10.0 Sodium 137 Potassium 3.8 Chloride 102 Carbon Dioxide 29 Anion Gap 5.0 BUN 30 H Creatinine 0.85 Est Cr Clr Drug Dosing 46.0 Est GFR ( Amer) 78.8 Est GFR (Non-Af Amer) 68.0 BUN/Creatinine Ratio 34.8 H Glucose 101 H Calcium 9.5 Vancomycin Trough 18.1 Medications Administered Current Inpatient Medications Acetaminophen (Acetaminophen 325 Mg Tab) 650 mg PO Q4H PRN PRN Reason: pain/fever Stop: 12/14/20 12:29 Last Admin: 11/17/20 20:21 Dose: 650 mg Documented by: Albuterol (Albut/Ipratrop 3mg/0.5mg Neb 3 Ml Vial) 3 ml NEB Q4R PRN PRN Reason: Shortness Of Breath Or Wheezing Stop: 12/15/20 10:59 Last Admin: 11/21/20 21:02 Dose: 3 ml Documented by: Apixaban (Apixaban 5 Mg Tablet) 5 mg PO BID NARESH Stop: 12/14/20 20:59 Last Admin: 11/28/20 08:45 Dose: 5 mg Documented by: Aspirin (Aspirin 81 Mg Ectab) 81 mg PO DAILY NARESH Stop: 12/15/20 08:59 Last Admin: 11/28/20 08:45 Dose: 81 mg Documented by: Atorvastatin Calcium (Atorvastatin 40 Mg Tab) 40 mg PO QAM NARESH Stop: 12/15/20 08:59 Last Admin: 11/28/20 08:45 Dose: 40 mg Documented by: Gabapentin (Gabapentin 300 Mg Cap) 300 mg PO TID NARESH Stop: 12/19/20 08:59 Last Admin: 11/28/20 08:46 Dose: 300 mg Documented by: Heparin Sodium (Beef Lung) (Heparin 10 Unit/Ml 5 Ml Flush) 5 ml FLUSH PRN PRN PRN Reason: Flush Stop: 12/15/20 01:00 Ertapenem 1,000 mg/ Sodium (Chloride) 60 mls @ 100 mls/hr IV Q24H NARESH; Protocol Stop: 12/26/20 20:59 Last Infusion: 11/28/20 06:57 Dose: Infused Documented by: Vancomycin HCl 750 mg/ Sodium (Chloride) 265 mls @ 200 mls/hr IV Q18H NARESH; Protocol Stop: 01/01/21 03:59 Last Infusion: 11/28/20 11:15 Dose: 0 mls/hr Documented by: Diltiazem HCl 125 mg/ Dextrose 125 mls @ 5 mls/hr IV .Q24H NARESH; Protocol Stop: 12/22/20 09:29 Last Titration: 11/22/20 15:37 Dose: Infused Documented by: Furosemide 40 mg/ Syringe 4 mls @ 4 mls/min IV [id number] NARESH Stop: 12/27/20 16:59 Last Admin: 11/28/20 08:45 Dose: 4 mls/min Documented by: Lorazepam (Lorazepam 0.5 Mg Tab) 0.5 mg SL Q4H PRN PRN Reason: Anxiety/Agitation Stop: 12/14/20 17:41 Last Admin: 11/26/20 02:00 Dose: 0.5 mg Documented by: Metoprolol Succinate (Metoprolol Succ 50mg Ext Rel Tab) 50 mg PO QAM [facility] Stop: 12/15/20 12:59 Last Admin: 11/28/20 08:46 Dose: Not Given Documented by: Metoprolol Succinate (Metoprolol Succ 25mg Ext Rel Tab) 25 mg PO [facility] Stop: 12/22/20 20:59 Last Admin: 11/27/20 21:19 Dose: 25 mg Documented by: Miscellaneous Information (Vancomycin Consult Active) 1 ea N/A UD PRN PRN Reason: Consult Stop: 12/14/20 13:12 Ondansetron HCl (Ondansetron Inj 2 Mg/Ml 2 Ml Vial) 4 mg IV Q4H PRN PRN Reason: Nausea Stop: 12/14/20 12:29 Oxycodone HCl (Oxycodone Hcl Ir 5 Mg Tab (Immediate Release)) 7.5 mg PO Q6H PRN PRN Reason: Pain Stop: 11/28/20 13:00 Last Admin: 11/28/20 08:55 Dose: 7.5 mg Documented by: Pantoprazole Sodium (Pantoprazole 40 Mg Tab) 40 mg PO DAILY [facility] Stop: 12/15/20 08:59 Last Admin: 11/28/20 08:45 Dose: 40 mg Documented by: Potassium Chloride (Potassium Chloride Crtab 20 Meq Tabcr) 20 meq PO BID [facility] Stop: 12/18/20 20:59 Last Admin: 11/28/20 08:45 Dose: 20 meq Documented by: Pramipexole Dihydrochloride (Pramipexole Dihydrochlo 0.25 Mg Tab) 0.25 mg PO [facility] Stop: 12/14/20 20:59 Last Admin: 11/27/20 21:19 Dose: 0.25 mg Documented by: Prednisone (Prednisone 10 Mg Tablet) 10 mg PO QAM [facility] Stop: 12/26/20 08:59 Last Admin: 11/28/20 08:45 Dose: 10 mg Documented by: Saccharomyces Boulardii (Saccharomyces Boulardii 250 Mg Cap) 250 mg PO DAILY [facility] Stop: 12/15/20 08:59 Last Admin: 03/20/21 08:45 Dose: 250 mg Documented by: Trazodone HCl (Trazodone Hcl 50 Mg Tab) 25 mg PO HS PRN PRN Reason: insomnia Stop: 12/14/20 12:29 Last Admin: 11/21/20 20:58 Dose: 25 mg Documented by: PG Care Time/CCT Total # of Minutes Spent Total Time Spent with Patient: Total time spent is greater than 50% in coordination of care (as documented) at patient's floor/unit and/or counseling patient: Coding Level of Care Code 51004 Subseq Hosp Care Lvl 2 Diagnoses Acute combined systolic and diastolic heart failure I50.41 Acute respiratory failure with hypoxia J96.01 Atrial fibrillation with rapid ventricular response I48.91 Peripheral arterial disease I73.9 Osteomyelitis M86.9 Depression F32.9 RLS (restless legs syndrome) G25.81 Anemia D64.9 Peripheral neuropathy G62.9 Peripheral neuropathy type: polyneuropathy, unspecified COPD exacerbation J44.1 Candidiasis of mouth and esophagus B37.81; B37.0 DVT prophylaxis Z29.9 (1) Peripheral neuropathy Peripheral neuropathy type: polyneuropathy, unspecified Qualified Code(s): G62.9 - Polyneuropathy, unspecified
[2020-11-28] MEDS ORDERED: METOPROLOL TARTRATE 1 MG/ML VIAL IV STA (18:15)
[2020-11-28] MEDS ORDERED: METOPROLOL TARTRATE 1 MG/ML VIAL IV ONE (18:18)
[2020-11-28] MEDS: METOPROLOL SUCC 25MG EXT REL TAB PO SCH (21:25)
[2020-11-28] MEDS: ERTAPENEM SODIUM 1,000 MG in SODIUM CHLORIDE 0.9% 50 ML IV SCH (21:25)
[2020-11-28] MEDS: PRAMIPEXOLE DIHYDROCHLO 0.25 MG TAB PO SCH (21:25)
[2020-11-29] MEDS: VANCOMYCIN HCL 750 MG in SODIUM CHLORIDE 0.9% 250 ML IV SCH ×2 (04:58→21:52)
[2020-11-29 05:58] LABS: Hematocrit (blood only) 27.1 % (37-47); Hemoglobin 8.8 g/dL (12.0-16.0)
[2020-11-29 06:25] LABS: BUN Creatinine Ratio 35.6 (10-20); Calcium 8.9 mg/dl (8.5-10.1); Est GFR (African American) 78.8
[2020-11-29] MEDS: GABAPENTIN 300 MG CAP PO SCH (08:26)
[2020-11-29] MEDS: ATORVASTATIN 40 MG TAB PO SCH (08:26)
[2020-11-29] MEDS: POTASSIUM CHLORIDE CRTAB 20 MEQ TABCR PO SCH ×2 (08:26→21:53)
[2020-11-29] MEDS: FUROSEMIDE 40 MG in SYRINGE 0 ML IV SCH (08:26)
[2020-11-29] MEDS: METOPROLOL SUCC 50MG EXT REL TAB PO SCH (08:27)
[2020-11-29] MEDS: SACCHAROMYCES BOULARDII 250 MG CAP PO SCH (08:27)
[2020-11-29] MEDS: predniSONE 10 MG TABLET PO SCH (08:27)
[2020-11-29] MEDS: ASPIRIN 81 MG ECTAB PO SCH (08:27)
[2020-11-29] MEDS: PANTOprazole 40 MG TAB PO SCH (08:27)
--- NOTE | 2020-11-29 12:00 | Hospitalist Progress Note ---
Date of Service November 29, 2020 Assessment & Plan (1) Acute combined systolic and diastolic heart failure: improving - negative 17 liters by I/O but do not think it is accurate, missing her oral intake weights prior this year were 57kg, now down to 52kg, lowest it has been in some time CT chest 11/21 with ongoing edema/effusions. treated with Lasix 40mg IV BID, tolerated well, BUN and Cr stable whole time appears to be euvolemic change to Lasix 40mg PO daily and recommend 1500mL fluid restriction on discharge continue metoprolol succinate 50mg AM and 25mg PM CHF clinic consult and recs appreciated. at this time BP does not allow for SAMY/ARB to be added stable for discharge from heart failure perspective, try for [facility] as soon as they can take her (2) Acute respiratory failure with hypoxia: Primary culprit was CHF. CT chest 11/21 with extensive b/l infiltrates. Repeat COVID/flu/RSV negative. Continue to diurese. Cont Steroids; weaned to 20mg daily on 11/23, now on 10mg, can stop today No wheezing on exam Continue Nebs/supportive care. saturations 91-92% on 2L, no distress (3) Atrial fibrillation with rapid ventricular response: Had first episode while awaiting admission in ER. Did not have symptoms during that spell. 2nd episode on 11/22 - lasting several hours, then spontaneously converting back to NSR. Cont metoprolol xl 50mg qam and 25mg at HS. resume Eliquis this evening since bleeding from toe stopped with surgicel had an episode of afib RVR rates 140 yesterday, stopped with Lopressor 5mg IV (4) Peripheral arterial disease: S/p right femoral to anterior tibial composite reverse saphenous vein bypass with harvesting of the left great saphenous vein with Dr. Robin on 11/06/2020. [place] removed 11/20/20. Continue aspirin, Eliquis Continue statin Continues with very good pulses and perfusion on exam, feet are warm s/p partial amputation of 4th right toe on 11/27 bleeding stopped with surgicel (5) Osteomyelitis: Concern for osteomyelitis of right foot on previous hospital stay. Right Foot MRI on 11/04 was an extremely poor study and equivocal for osteomyel itis however. study results from 11/04: "FINDINGS: Very Limited exam secondary to extensive motion artifact. The study was unable to be completed secondary to reported patient pain. Axial STIR images were not completed. There is moderate diffuse subcutaneous and intramuscular and deep tissue edema throughout the foot. No fluid collection or discrete mass. No definite intermetatarsal bursitis. Moderate bone marrow edema is noted involving the fifth proximal phalanx. Cortical thickening is also noted with the previously described fracture involving the proximal phalangeal base not definitively seen. Additional areas of bone marrow edema are suggested within the first and fourth distal phalanges. Questioned cortical irregularity involving the medial aspect of the first distal phalangeal tuft is better appreciated on comparison radiographs." [id number], [employer] ID recommended vanc/ertapenem x 6 weeks during that hospital stay. (End date: 01/14/2021). RUE PICC line in place. Recent inflammatory markers improved. No fever/other infectious symptoms. Ulceration side of right foot - continue wound care. (6) Depression: - Continue home trazodone - Ativan SL PRN for anxiety (7) RLS (restless legs syndrome): Continue home pramipexole Fe studies acceptable (8) Anemia: b12, folate, iron studies acceptable likely anemia of chronic disease Hb 9.3 on 11/23, check tomorrow with bleeding from toe (9) Peripheral neuropathy: more pain in left foot today, will again increase gabapentin to 400mg TID. b12 level wnl. Cont oxycodone 7.5mg q6h prn. (10) COPD exacerbation: Continue prednisone, nebs, supportive care. Wean prednisone to 10mg (11) Candidiasis of mouth and esophagus: Continue nystatin solution Resolved (12) DVT prophylaxis: Apixaban continue PT/OT ultimately patient wishes to return to [facility], she is stable for discharge starting tomorrow Admission and Anticipated Discharge Date Admission Date: November 14, 2020 Subjective patient doing well, her main complaint is pain in her left foot, like needles, shooting pain will increase her gabapentin to 400mg TID she is eating well, her weight is down to 52kg, lowest it has been in some time will change her to Lasix 40mg PO and pull de souza this afternoon no further bleeding from toe since the surgicel was placed likely good for [facility] tomorrow Review of Systems Review of Systems: All systems reviewed & are unremarkable except as noted in Subjective Physical Exam Constitutional: WD/WN, vitals as above no acute distress Neck: trachea midline, no thyromegaly Respiratory: normal respiratory effort, lungs clear to auscultation Cardiovascular: Rate/Rhythm: regular rate and regular rhythm Heart Sounds: normal S1 and normal S2; no murmur Vessels: no JVD Extremities: normal capillary refill and + edema (trace) Gastrointestinal (Abdomen): normal bowel sounds, soft, nontender, no hepatosplenomegaly Musculoskeletal: no cyanosis or clubbing, extremities motor strength 5/5 (right 4th toe bleeding) Skin: no rashes, warm and dry Neurologic: patellar DTR's 2+ bilat, sensation intact and PERRL, EOMI, accommodation nl, no face palsy, no dysarthria Psychiatric: A+Ox3, euthymic affect Lymphatic: no cervical or axillary lymphadenopathy Results & Data Results & Data ([facility]) Vital Signs (Past 12 Hours) Vital Signs Temp Pulse Pulse Pulse Resp BP Pulse Ox 11/29/20 11:06 36.8 C 70 16 100/80 95 11/29/20 07:57 36.4 C L 89 18 101/58 L 93 11/29/20 07:15 63 11/29/20 03:43 36.7 C 68 17 115/58 L 99 Laboratory Results Laboratory Results - last 24 hr 11/29/20 11/29/20 05:34 05:34 Hgb 8.8 L Hct 27.1 L Sodium 139 Potassium 4.0 Chloride 104 Carbon Dioxide 30 Anion Gap 5.0 BUN 30 H Creatinine 0.85 Est Cr Clr Drug Dosing 46.0 Est GFR ( Amer) 78.8 Est GFR (Non-Af Amer) 68.0 BUN/Creatinine Ratio 35.6 H Glucose 86 Calcium 8.9 Medications Administered Current Inpatient Medications Acetaminophen (Acetaminophen 325 Mg Tab) 650 mg PO Q4H PRN PRN Reason: pain/fever Stop: 12/14/20 12:29 Last Admin: 11/17/20 20:21 Dose: 650 mg Documented by: Albuterol (Albut/Ipratrop 3mg/0.5mg Neb 3 Ml Vial) 3 ml NEB Q4R PRN PRN Reason: Shortness Of Breath Or Wheezing Stop: 12/15/20 10:59 Last Admin: 11/21/20 21:02 Dose: 3 ml Documented by: Apixaban (Apixaban 5 Mg Tablet) 5 mg PO BID [facility] Stop: 12/14/20 20:59 Last Admin: 11/28/20 08:45 Dose: 5 mg Documented by: Aspirin (Aspirin 81 Mg Ectab) 81 mg PO DAILY [facility] Stop: 12/15/20 08:59 Last Admin: 11/29/20 08:27 Dose: 81 mg Documented by: Atorvastatin Calcium (Atorvastatin 40 Mg Tab) 40 mg PO QAM [facility] Stop: 12/15/20 08:59 Last Admin: 11/29/20 08:26 Dose: 40 mg Documented by: Gabapentin (Gabapentin 300 Mg Cap) 300 mg PO TID [facility] Stop: 12/19/20 08:59 Last Admin: 11/29/20 08:26 Dose: 300 mg Documented by: Heparin Sodium (Beef Lung) (Heparin 10 Unit/Ml 5 Ml Flush) 5 ml FLUSH PRN PRN PRN Reason: Flush Stop: 12/15/20 01:00 Ertapenem 1,000 mg/ Sodium (Chloride) 60 mls @ 100 mls/hr IV Q24H [facility]; Protocol Stop: 12/26/20 20:59 Last Infusion: 11/29/20 06:01 Dose: Infused Documented by: Vancomycin HCl 750 mg/ Sodium (Chloride) 265 mls @ 200 mls/hr IV Q18H [facility]; Protocol Stop: 01/01/21 03:59 Last Infusion: 11/29/20 07:05 Dose: Infused Documented by: Diltiazem HCl 125 mg/ Dextrose 125 mls @ 5 mls/hr IV .Q24H [facility]; Protocol Stop: 12/22/20 09:29 Last Titration: 11/22/20 15:37 Dose: Infused Documented by: Furosemide 40 mg/ Syringe 4 mls @ 4 mls/min IV BID17 [facility] Stop: 12/27/20 16:59 Last Admin: 11/29/20 08:26 Dose: 4 mls/min Documented by: Lorazepam (Lorazepam 0.5 Mg Tab) 0.5 mg SL Q4H PRN PRN Reason: Anxiety/Agitation Stop: 12/14/20 17:41 Last Admin: 11/26/20 02:00 Dose: 0.5 mg Documented by: Metoprolol Succinate (Metoprolol Succ 50mg Ext Rel Tab) [facility] Stop: 12/15/20 12:59 Last Admin: 11/29/20 08:27 Dose: 50 mg Documented by: Metoprolol Succinate (Metoprolol Succ 25mg Ext Rel Tab) 25 mg PO HS NARESH Stop: 12/22/20 20:59 Last Admin: 11/28/20 21:25 Dose: 25 mg Documented by: Miscellaneous Information (Vancomycin Consult Active) 1 ea N/A UD PRN PRN Reason: Consult Stop: 12/14/20 13:12 Ondansetron HCl (Ondansetron Inj 2 Mg/Ml 2 Ml Vial) 4 mg IV Q4H PRN PRN Reason: Nausea Stop: 12/14/20 12:29 Pantoprazole Sodium (Pantoprazole 40 Mg Tab) 40 mg PO DAILY NARESH Stop: 12/15/20 08:59 Last Admin: 11/29/20 08:27 Dose: 40 mg Documented by: Potassium Chloride (Potassium Chloride Crtab 20 Meq Tabcr) 20 meq PO BID NARESH Stop: 12/18/20 20:59 Last Admin: 11/29/20 08:26 Dose: 20 meq Documented by: Pramipexole Dihydrochloride (Pramipexole Dihydrochlo 0.25 Mg Tab) 0.25 mg PO HS NARESH Stop: 12/14/20 20:59 Last Admin: 11/28/20 21:25 Dose: 0.25 mg Documented by: Prednisone (Prednisone 10 Mg Tablet) 10 mg PO QAM NARESH Stop: 12/26/20 08:59 Last Admin: 11/29/20 08:27 Dose: 10 mg Documented by: Saccharomyces Boulardii (Saccharomyces Boulardii 250 Mg Cap) 250 mg PO DAILY NARESH Stop: 12/15/20 08:59 Last Admin: 11/29/20 08:27 Dose: 250 mg Documented by: Trazodone HCl (Trazodone Hcl 50 Mg Tab) 25 mg PO HS PRN PRN Reason: insomnia Stop: 12/14/20 12:29 Last Admin: 11/21/20 20:58 Dose: 25 mg Documented by: PG Care Time/CCT Total # of Minutes Spent Total Time Spent with Patient: Total time spent is greater than 50% in coordination of care (as documented) at patient's floor/unit and/or counseling patient: Coding Level of Care Code 83352 Subseq Hosp Care Lvl 3 Diagnoses Acute combined systolic and diastolic heart failure I50.41 Acute respiratory failure with hypoxia J96.01 Atrial fibrillation with rapid ventricular response I48.91 Peripheral arterial disease I73.9 Osteomyelitis M86.9 Depression F32.9 RLS (restless legs syndrome) G25.81 Anemia D64.9 Peripheral neuropathy G62.9 Peripheral neuropathy type: polyneuropathy, unspecified COPD exacerbation J44.1 Candidiasis of mouth and esophagus B37.81; B37.0 DVT prophylaxis Z29.9 (1) Peripheral neuropathy Peripheral neuropathy type: polyneuropathy, unspecified Qualified Code(s): G62.9 - Polyneuropathy, unspecified
[2020-11-29] MEDS: GABAPENTIN 400 MG CAP PO SCH ×2 (15:14→21:55)
[2020-11-29] MEDS: ERTAPENEM SODIUM 1,000 MG in SODIUM CHLORIDE 0.9% 50 ML IV SCH (21:51)
[2020-11-29] MEDS: METOPROLOL SUCC 25MG EXT REL TAB PO SCH (21:54)
[2020-11-29] MEDS: APIXABAN 5 MG TABLET PO SCH (21:55)
[2020-11-29] MEDS: PRAMIPEXOLE DIHYDROCHLO 0.25 MG TAB PO SCH (21:55)
[2020-11-30] MEDS: APIXABAN 5 MG TABLET PO SCH ×2 (08:09→20:40)
[2020-11-30] MEDS: GABAPENTIN 400 MG CAP PO SCH ×3 (08:09→20:41)
[2020-11-30] MEDS: METOPROLOL SUCC 50MG EXT REL TAB PO SCH (08:10)
[2020-11-30] MEDS: ASPIRIN 81 MG ECTAB PO SCH (08:10)
[2020-11-30] MEDS: POTASSIUM CHLORIDE CRTAB 20 MEQ TABCR PO SCH ×2 (08:10→20:40)
[2020-11-30] MEDS: PANTOprazole 40 MG TAB PO SCH (08:10)
[2020-11-30] MEDS: FUROSEMIDE 40 MG TAB PO SCH (08:10)
[2020-11-30] MEDS: SACCHAROMYCES BOULARDII 250 MG CAP PO SCH (08:10)
[2020-11-30] MEDS: ATORVASTATIN 40 MG TAB PO SCH (08:10)
--- NOTE | 2020-11-30 09:12 | Surgery Progress Note ---
Date of Service November 30, 2020 Assessment & Plan (1) Gangrene of toe of right foot: Pt doing well post op from R 4th toe amp. Bleeding seems to be controlled. Dry dressings to be changed daily. May be WBAT with a postop/surgical boot to RLE. OK for d/c from vascular standpoint. Admission and Anticipated Discharge Date Admission Date: November 14, 2020 Subjective 75 yo f POD #3 after RLE 4th toe amputation, seen inf/u today. Pt admits some pain in amp site, as well as L great toe. Denies any other new complaints. Review of Systems Review of Systems: All systems reviewed & are unremarkable except as noted in HPI & below Physical Exam Constitutional: WD/WN, vitals as above Cardiovascular: Vessels: femoral pulses present, posterior tibial pulses pres ent (+ dopplerable RLE, LLE no pulse) and dorsalis pedis pulses present (RLE + dopplerable, LLE no pulse); + abnormal peripheral pulses Extremities: normal capillary refill (Normal in RLE, LLE 5 seconds) and + edema (Mild edema BLE, improved from discharge) Skin: + wound (R lat foot healing) and + incision (R4th toe with mild bleeding after dressing removal.) Psychiatric: A+Ox3, euthymic affect Results & Data ([facility]) Vital Signs (Past 12 Hours) Vital Signs Temp Pulse Resp BP Pulse Ox 11/30/20 07:47 36.4 C L 75 18 92/53 L 98 11/30/20 03:25 36.8 C 71 18 111/69 98 11/29/20 23:27 36.7 C 70 16 105/58 L 95
[2020-11-30] MEDS: VANCOMYCIN HCL 750 MG in SODIUM CHLORIDE 0.9% 250 ML IV SCH (15:47)
--- NOTE | 2020-11-30 18:09 | Hospitalist Progress Note ---
Date of Service November 30, 2020 Assessment & Plan (1) Acute combined systolic and diastolic heart failure: improving - negative 17 liters by I/O but do not think it is accurate, missing her oral intake weights prior this year were 57kg, now down to 52kg, lowest it has been in some time CT chest 11/21 with ongoing edema/effusions. treated with Lasix 40mg IV BID, tolerated well, BUN and Cr stable whole time appears to be euvolemic change to Lasix 40mg PO daily and recommend 1500mL fluid restriction on discharge continue metoprolol succinate 50mg AM and 25mg PM CHF clinic consult and recs appreciated. at this time BP does not allow for SAMY/ARB to be added stable for discharge from heart failure perspective, try for [facility] as soon as they can take her (2) Acute respiratory failure with hypoxia: Primary culprit was CHF. CT chest 11/21 with extensive b/l infiltrates. Repeat COVID/flu/RSV negative. Continue to diurese. Cont Steroids; weaned to 20mg daily on 11/23, now on 10mg, can stop today No wheezing on exam Continue Nebs/supportive care. saturations 91-92% on 2L, no distress (3) Atrial fibrillation with rapid ventricular response: Had first episode while awaiting admission in ER. Did not have symptoms during that spell. 2nd episode on 11/22 - lasting several hours, then spontaneously converting back to NSR. Cont metoprolol xl 50mg qam and 25mg at HS. resume Eliquis this evening since bleeding from toe stopped with surgicel had an episode of afib RVR rates 140 yesterday, stopped with Lopressor 5mg IV (4) Peripheral arterial disease: S/p right femoral to anterior tibial composite reverse saphenous vein bypass with harvesting of the left great saphenous vein with Dr. Robin on 11/06/2020. [place] removed 11/20/20. Continue aspirin, Eliquis Continue statin Continues with very good pulses and perfusion on exam, feet are warm s/p partial amputation of 4th right toe on 11/27 bleeding stopped with surgicel (5) Osteomyelitis: Concern for osteomyelitis of right foot on previous hospital stay. Right Foot MRI on 11/04 was an extremely poor study and equivocal for osteomyelitis however. study results from 11/04: "FINDINGS: Very Limited exam secondary to extensive motion artifact. The study was unable to be completed secondary to reported patient pain. Axial STIR images were not completed. There is moderate diffuse subcutaneous and intramuscular and deep tissue edema throughout the foot. No fluid collection or discrete mass. No definite intermetatarsal bursitis. Moderate bone marrow edema is noted involving the fifth proximal phalanx. Cortical thickening is also noted with the previously described fracture involving the proximal phalangeal base not definitively seen. Additional areas of bone marrow edema are suggested within the first and fourth distal phalanges. Questioned cortical irregularity involving the medial aspect of the first distal phalangeal tuft is better appreciated on comparison radiographs." [id number], [employer] ID recommended vanc/ertapenem x 6 weeks during that hospital stay. (End date: 01/14/2021). RUE PICC line in place. Recent inflammatory markers improved. No fever/other infectious symptoms. Ulceration side of right foot - continue wound care. (6) Depression: - Continue home trazodone - Ativan SL PRN for anxiety (7) RLS (restless legs syndrome): Continue home pramipexole Fe studies acceptable (8) Anemia: b12, folate, iron studies acceptable likely anemia of chronic disease Hb 9.3 on 11/23, check tomorrow with bleeding from toe (9) Peripheral neuropathy: more pain in left foot today, will again increase gabapentin to 400mg TID. b12 level wnl. Cont oxycodone 7.5mg q6h prn. (10) COPD exacerbation: Continue prednisone, nebs, supportive care. Wean prednisone to 10mg 3-22 off steroids (11) Candidiasis of mouth and esophagus: Continue nystatin solution Resolved (12) DVT prophylaxis: Apixaban continue PT/OT ultimately patient wishes to return to [facility], she is stable for discharge starting tomorrow Admission and Anticipated Discharge Date Admission Date: November 14, 2020 Subjective Patient feels "100% better" than when she first arrived in hospital. Complaining of left great toe pain, but surgical incision on right foot does not hurt. Her left leg graft site is healing but has opened up a bit, no drainage or bleeding. Tolerating diet Making urine No constipation or diarrhea Review of Systems Constitutional: no fever, no chills, no fatigue, no weakness, no anorexia, no weight loss and no weight gain Ear, Nose, Mouth, Throat: no nasal congestion, no sore throat and no dysphagia Respiratory: no cough and no dyspnea Cardiovascular: no chest pain, no dyspnea on exertion, no orthopnea and no palpitations Gastrointestinal: no abdominal pain, no nausea, no vomiting, no hematemesis, no dysphagia, no constipation, no diarrhea/loose stools, no blood in stools and no melena Genitourinary: no dysuria, no urinary frequency, no hematuria and no flank pain Musculoskeletal: no back pain, no joint pain, no myalgia and no muscle weakness Integumentary: no rash, no lesions, no skin ulcer, no erythema, no dry skin and no pruritus Neurologic: no falls, no localized weakness, no generalized weakness, no numbness, no paresthesia, no tremor(s) and no headache(s) Psychiatric: no depression, no suicidal ideation, no homicidal ideation and no anxiety Endocrine: no cold intolerance and no heat intolerance Hematologic / Lymphatic: no easy bleeding and no easy bruising Physical Exam Constitutional: well developed and well nourished; no acute distress Eyes: PERRL, conjunctivae normal, anicteric sclerae ENMT: Mouth: oral mucous membranes not dry Respiratory: normal respiratory effort; no respiratory distress and no labored breathing Auscultation: lungs clear to auscultation bilaterally; no crackles, no rales, no rhonchi and no wheezes Cardiovascular: Rate/Rhythm: regular rate and regular rhythm Heart Sounds: no murmur and no cardiac rub Vessels: normal peripheral pulses and radial pulses present; no JVD Extremities: no edema Gastrointestinal (Abdomen): Inspection/Auscultation: abdomen normal to inspection and normal bowel sounds; abdomen not distended Percussion/Palpation: abdomen soft; abdomen nontender, no guarding, abdomen not rigid and no hepatosplenomegaly Musculoskeletal: Head/Neck/Chest: normocephalic and head atraumatic Spine: no cervical spinal tenderness, no cervical muscular tenderness, no thoracic spinal tenderness and no lumbar spinal tenderness Skin: no rashes, warm and dry Neurologic: CN's II-XI intact bilaterally and moves all extremities Motor/Sensory: no tremor and no sensory deficit Psychiatric: Orientation: alert, oriented to person, oriented to place and oriented to time Apperance: appropriately groomed; not disheveled Affect: euthymic affect; no anxious affect and no tearful affect Genitourinary: no CVA tenderness no Menezes catheter Results & Data Results & Data ([facility]) Vital Signs (Past 12 Hours) Vital Signs Temp Pulse Pulse Pulse Resp BP BP 11/30/20 17:29 36.5 C 71 16 96/67 L 11/30/20 15:23 36.4 C L 65 18 104/54 L 11/30/20 14:56 65 11/30/20 11:30 36.6 C 65 18 108/68 11/30/20 09:27 68 11/30/20 07:47 36.4 C L 75 18 92/53 L Pulse Ox 11/30/20 17:29 98 11/30/20 15:23 99 11/30/20 14:56 11/30/20 11:30 99 11/30/20 09:27 11/30/20 07:47 98 PG Care Time/CCT Total # of Minutes Spent Total Time Spent with Patient: Total time spent is greater than 50% in coordination of care (as documented) at patient's floor/unit and/or counseling patient: Coding Level of Care Code 76807 Subseq Hosp Care Lvl 2 Diagnoses Acute combined systolic and diastolic heart failure I50.41 Acute respiratory failure with hypoxia J96.01 Atrial fibrillation with rapid ventricular response I48.91 Peripheral arterial disease I73.9 Osteomyelitis M86.9 Depression F32.9 RLS (restless legs syndrome) G25.81 Anemia D64.9 Peripheral neuropathy G62.9 Peripheral neuropathy type: polyneuropathy, unspecified COPD exacerbation J44.1 Candidiasis of mouth and esophagus B37.81; B37.0 DVT prophylaxis Z29.9 (1) Peripheral neuropathy Peripheral neuropathy type: polyneuropathy, unspecified Qualified Code(s): G6 2.9 - Polyneuropathy, unspecified
[2020-11-30] MEDS: METOPROLOL SUCC 25MG EXT REL TAB PO SCH (20:41)
[2020-11-30] MEDS: PRAMIPEXOLE DIHYDROCHLO 0.25 MG TAB PO SCH (20:41)
[2020-11-30] MEDS: ERTAPENEM SODIUM 1,000 MG in SODIUM CHLORIDE 0.9% 50 ML IV SCH (20:54)
[2020-12-01 07:15] LABS: Hematocrit (blood only) 27.8 % (37-47); Hemoglobin 9.1 g/dL (12.0-16.0); Mean Corpuscular Hemoglobin 28.3 pg (25-34); Mean Corpuscular Hgb Conc 32.7 g/dL (32-36); Mean Corpuscular Volume 86.3 fL (80-100); Mean Platelet Volume 10.7 fL (7.4-10.4); Platelet Count 254 K/uL (130-400); RDW Coefficient of Variation 16.3 % (11.5-14.5); RDW Standard Deviation 50.4 fL (36.4-46.3); Red Blood Count 3.22 M/uL (4.2-5.4); White Blood Count 8.99 K/uL (4.8-10.8)
[2020-12-01 08:04] LABS: Calcium 9.1 mg/dl (8.5-10.1); Creatinine Clr Calc Pharmacy 47.6 ml/min; Est GFR (African American) 82.3; Magnesium 1.6 mg/dl (1.8-2.4); Phosphorus 3.4 mg/dl (2.5-4.9); Potassium 3.6 mmol/L (3.5-5.1)
[2020-12-01] MEDS: ASPIRIN 81 MG ECTAB PO SCH (09:06)
[2020-12-01] MEDS: SACCHAROMYCES BOULARDII 250 MG CAP PO SCH (09:07)
[2020-12-01] MEDS: APIXABAN 5 MG TABLET PO SCH (09:07)
[2020-12-01] MEDS: POTASSIUM CHLORIDE CRTAB 20 MEQ TABCR PO SCH (09:07)
[2020-12-01] MEDS: ATORVASTATIN 40 MG TAB PO SCH (09:08)
[2020-12-01] MEDS: PANTOprazole 40 MG TAB PO SCH (09:09)
[2020-12-01] MEDS: GABAPENTIN 400 MG CAP PO SCH ×2 (09:10→13:25)
[2020-12-01] MEDS: METOPROLOL SUCC 50MG EXT REL TAB PO SCH (09:14)
[2020-12-01] MEDS: FUROSEMIDE 40 MG TAB PO SCH (09:14)
[2020-12-01] MEDS: VANCOMYCIN HCL 750 MG in SODIUM CHLORIDE 0.9% 250 ML IV SCH (10:25)
--- NOTE | 2020-12-01 12:27 | Discharge Summary ---
Date of Service December 01, 2020 Admission HPI Per Admitting Provider 75yo F w/ hx of PAD who was discharged yesterday after being in the hospital for right leg ischemia who presents with afib with RVR and shortness of breath. Was at [facility] when she says she felt more short of breath yesterday afternoon. Had a tough night with more shortness of breath. In the morning, she was found to be in afib with rates in the 150s and sent to the hospital. In the ED, she converted back to sinus rhythm. Principal Diagnosis osteomyelitis Discharge Exam Constitutional well developed and well nourished; no acute distress Eyes PERRL, conjunctivae normal, anicteric sclerae ENMT Mouth: oral mucous membranes not dry Respiratory normal respiratory effort; no respiratory distress and no labored breathing Auscultation: lungs clear to auscultation bilaterally; no crackles, no rales, no rhonchi and no wheezes Cardiovascular Rate/Rhythm: regular rate and regular rhythm Heart Sounds: no murmur and no cardiac rub Vessels: normal peripheral pulses and radial pulses present; no JVD Extremities: no edema Gastrointestinal (Abdomen) Inspection/Auscultation: abdomen normal to inspection and normal bowel sounds; abdomen not distended Percussion/Palpation: abdomen soft; abdomen nontender, no guarding, abdomen not rigid and no hepatosplenomegaly Musculoskeletal Head/Neck/Chest: normocephalic and head atraumatic Spine: no cervical spinal tenderness, no cervical muscular tenderness, no thoracic spinal tenderness and no lumbar spinal tenderness Extremities: + foot abnormality (right foot in boot) Right Skin no rashes, warm and dry Neurologic CN's II-XI intact bilaterally and moves all extremities Motor/Sensory: no tremor and no sensory deficit Psychiatric Orientation: alert, oriented to person, oriented to place and oriented to time Apperance: appropriately groomed; not disheveled Affect: euthymic affect; no anxious affect and no tearful affect Genitourinary no CVA tenderness Discharge Data Allergies Allergy/AdvReac Type Severity Reaction Status Date / Time Penicillins Allergy Intermediate Hives Verified 11/14/20 09:32 Consultations 11/14/20 08:49 ED Decision to Admit Stat Procedures Performed Operation Date: 11/27/20 08:00 Actual Procedures p Right 4th Toe Amputation(Right) - Garcia Robin MD Ordered Studies 11/21/20 13:18 CT chest diagnostic wo con Routine Hospital Course (1) Acute combined systolic and diastolic heart failure: improving - negative 17 liters by I/O but do not think it is accurate, missing her oral intake weights prior this year were 57kg, now down to 52kg, lowest it has been in some time CT chest 11/21 with ongoing edema/effusions. treated with Lasix 40mg IV BID, tolerated well, BUN and Cr stable whole time appears to be euvolemic change to Lasix 40mg PO daily and recommend 1500mL fluid restriction on discharge continue metoprolol succinate 50mg AM and 25mg PM CHF clinic consult and recs appreciated. at this time BP does not allow for SAMY/ARB to be added stable for discharge from heart failure perspective, try for [facility] as soon as they can take her (2) Acute respiratory failure with hypoxia: Primary culprit was CHF. CT chest 11/21 with extensive b/l infiltrates. Repeat COVID/flu/RSV negative. Continue to diurese. Cont Steroids; weaned to 20mg daily on 11/23, now on 10mg, can stop today No wheezing on exam Continue Nebs/supportive care. saturations 91-92% on 2L, no distress (3) Atrial fibrillation with rapid ventricular response: Had first episode while awaiting admission in ER. Did not have symptoms during that spell. 2nd episode on 11/22 - lasting several hours, then spontaneously converting back to NSR. Cont metoprolol xl 50mg qam and 25mg at HS. resume Eliquis this evening since bleeding from toe stopped with surgicel had an episode of afib RVR rates 140 yesterday, stopped with Lopressor 5mg IV (4) Peripheral arterial disease: S/p right femoral to anterior tibial composite reverse saphenous vein bypass with harvesting of the left great saphenous vein with Dr. Robin on 11/06/2020. [place] removed 11/20/20. Continue aspirin, Eliquis Continue statin Continues with very good pulses and perfusion on exam, feet are warm s/p partial amputation of 4th right toe on 11/27 bleeding stopped with surgicel (5) Osteomyelitis: Concern for osteomyelitis of right foot on previous hospital stay. Right Foot MRI on 11/04 was an extremely poor study and equivocal for osteomyelitis however. study results from 11/04: "FINDINGS: Very Limited exam secondary to extensive motion artifact. The study was unable to be completed secondary to reported patient pain. Axial STIR images were not completed. There is moderate diffuse subcutaneous and intramuscular and deep tissue edema throughout the foot. No fluid collection or discrete mass. No definite intermetatarsal bursitis. Moderate bone marrow edema is noted involving the fifth proximal phalanx. Cortical thickening is also noted with the previously described fracture involving the proximal phalangeal base not definitively seen. Additional areas of bone marrow edema are suggested within the first and fourth distal phalanges. Questioned cortical irregularity involving the medial aspect of the first distal phalangeal tuft is better appreciated on comparison radiographs." [id number], [facility] ID recommended vanc/ertapenem x 6 weeks during that hospital stay. (End date: 01/14/2021). RUE PICC line in place. Recent inflammatory markers improved. No fever/other infectious symptoms. Ulceration side of right foot - continue wound care. (6) Depression: - Continue home trazodone - Ativan SL PRN for anxiety (7) RLS (restless legs syndrome): Continue home pramipexole Fe studies acceptable (8) Anemia: b12, folate, iron studies acceptable likely anemia of chronic disease Hb 9.3 on 11/23, check tomorrow with bleeding from toe (9) Peripheral neuropathy: more pain in left foot today, will again increase gabapentin to 400mg TID. b12 level wnl. Cont oxycodone 7.5mg q6h prn. (10) COPD exacerbation: Continue prednisone, nebs, supportive care. Wean prednisone to 10mg 3-22 off steroids (11) Candidiasis of mouth and esophagus: Continue nystatin solution Resolved (12) DVT prophylaxis: Apixaban continue PT/OT ultimately patient wishes to return to [facility], she is stable for discharge starting tomorrow Total Time Total Time Spent Total Time Spent (In Minutes): 35 minutes Total Time Includes: Examination of the Patient, Discharge Planning, Medication Reconciliation and Communication With Other Providers Discharge Plan Discharge Items Patient Disposition: Transfer Inpatient Rehab Fac Reason For Visit: AFIB WITH RVR Discharge Diagnosis: atrial fibrillation with RVR right 4th toe gangrene Activity: As commented below Non-emergency contact: Primary Care Provider Call non-emergency contact if: you have any medication questions Follow-up/Referrals: Marley Bates MD [Primary Care Provider] - Amada Mireles PA-C [Physician I&C Tech] - 12/08/20 2:00 pm (Congestive Heart Failure Program Appointment Information Early follow up is essential to managing your heart failure. An appointment has been scheduled for you with the [facility] Heart Failure Program within 7 days of discharge. Anticipate this visit to be 30-60 minutes long. Please expect a cop phone call from one of our nurses approximately 48 hours from discharge. They will also be placing an order for lab work to be completed 1-2 days prior to your heart failure follow up appointment. Please be sure to have this done so we can go over the results when you come in. Office Location The cardiology office building is located in front of the hospital at [address] Bring the following with you to your follow-up doctor appointments: Please bring your daily weight log any discharge paperwork all of your medication bottles with you to this visit. ) Diet: Heart Healthy Fluids: 1500ml (6 cups) Diet Comment: minced and moist Stephytl Attending Provider Instructions: You have peripheral artery disease You had right femoral - anterior tibial saphenous vein bypass 11-06 Your kirti were removed 11-20 Your right 4th toe was amputated on 11-27 You will need vancomycin and ertapenem through 01-14 according to infectious disease recommendations After you complete your antibiotics, your PICC line needs to be pulled You were treated for systolic and diastolic CHF Continue to take lasix 40mg daily Restrict your fluid intake to 1500ml per day You were treated for COPD exacerbation You received steroids but these have been stopped You were treated for atrial fibrillation with RVR Continue to take metoprolol 50mg in the morning and 25mg at bedtime Continue eliquis [employer] Provider Instructions: Call your Primary Care doctor if any of the following symptoms or problems start or get worse: * Shortness of breath or difficulty breathing * Wake up at night short of breath * Chest pain * Cough * Swelling of your hands, feet, or legs * More fatigued or tired with your normal activity * Palpitations - sudden fast heart beats WEIGHT * Weigh yourself every morning after using the bathroom. * Use the same scale. * Wear the same amount of clothing. * Write your weight down on a chart. * Call your Primary Care doctor if you gain more than 2-3 pounds in 1-2 days. MEDICATIONS * Use this discharge instruction sheet for medication instructions. * Take your medications at the time your doctor ordered. * Do not skip a dose of your medicines. * If you miss a dose of medicine, take it as soon as possible, but DO NOT DOUBLE A DOSE. * Read your medicine information when you get home. * Know all of the side effects of your medicine. If in doubt, ask your pharmacist * Call your Primary Care doctor's office if you have any side effects. * Be sure all of your doctors know what medicine and herbs you take (including cold, flu, and herbal medicine). Take the following with you to your follow-up doctor appointments: * Weight Chart * Medication List * List of questions Do not drink excessive alcohol, beer or wine. Pending Studies at Discharge: No Stand-Alone Forms: [employer], Smoking Cessation Skilled Items Patient informed of condition?: Yes DNR: No Discharge Level of Care: Acute rehab Communicable Disease: No Discharge Prognosis: Stable Lines: PICC Urinary Catheter: No Medications and DC Order Prescriptions: New metoprolol succinate 25 mg Tablet Extended Release 24 Hr 25 mg PO HS 30 Days Qty: 30 RF: 0 metoprolol succinate 50 mg Tablet Extended Release 24 Hr 50 mg PO QAM 30 Days Qty: 30 RF: 0 furosemide 40 mg Tablet 40 mg PO QAM 30 Days Qty: 30 RF: 0 potassium chloride [Klor-Con M20] 20 mEq Tablet,Er Particles/Crystals 20 meq PO BID 30 Days Qty: 60 RF: 0 lorazepam 0.5 mg Tablet 0.5 mg sublingual DAILY PRN (Reason: anxiety) 30 Days Qty: 30 RF: 0 acetaminophen 325 mg Tablet 650 mg PO Q4H PRN (Reason: fever or pain) 30 Days Qty: 100 RF: 0 gabapentin 400 mg Capsule 400 mg PO TID 30 Days Qty: 90 RF: 0 ipratropium-albuterol 0.5 mg-3 mg(2.5 mg base)/3 mL Solution For Nebulization 3 ml NEB Q4R PRN (Reason: shortness of breath or wheezing) 30 Days Qty: 90 RF: 0 ertapenem 1 gram recon soln 1 g IV DAILY 45 Days RF: 0 vancomycin in 0.9 % sodium chl 750 mg/250 mL solution 750 mg IV Q18H 45 Days RF: 0 Continued pramipexole 0.125 mg tablet See Rx Instructions .ROUTE .COMPLEX Qty: 45 RF: 1 trazodone 50 mg tablet 25 mg PO .COMPLEX PRN (Reason: insomnia) Qty: 20 RF: 2 gabapentin 100 mg capsule 200 mg PO BID Qty: 60 RF: 5 omeprazole 20 mg capsule,delayed release(DR/EC) 20 mg PO DAILY Qty: 30 RF: 11 aspirin 81 mg tablet,delayed release (DR/EC) 81 mg PO DAILY Qty: 30 RF: 0 cholecalciferol (vitamin D3) 25 mcg (1,000 unit) capsule 5,000 unit PO QAM RF: 0 multivitamin with minerals Tablet 1 tab PO QAM RF: 0 atorvastatin 40 mg tablet 40 mg PO QAM RF: 0 calcium carbonate-vitamin D3 600 mg(1,500mg) -200 unit tablet 1 tab PO QAM RF: 0 Stool Softener 1 tab PO DIRECTED RF: 0 Eliquis 5 mg Tablet 5 mg PO BID Qty: 0 RF: 0 Saccharomyces boulardii [Florastor] 250 mg Capsule 250 mg PO DAILY Qty: 1 RF: 0 Discontinued oxycodone 5 mg tablet 10 mg PO Q6H PRN (Reason: pain) Qty: 60 RF: 0 lisinopril 5 mg tablet 5 mg PO DAILY RF: 0 Vancomycin Consult Active [Consult] 1 dose Not Applicable UD PRNQty: 0 RF: 0 clopidogrel [Plavix] 75 mg tablet 75 mg PO DAILY RF: 0 hydrochlorothiazide 25 mg tablet 25 mg PO DAILY RF: 0 Discharge Orders: Discharge Order (Routine); Ordered 12/01/20 Ordered By: Lori Greer Admission Data Admit Date/Time: 11/14/20 10:17 Attending Provider: Lori Greer Admit Provider: Chase Sanabria Primary Care Provider: Marley Bates Other Providers: [facility] ; Lamin Aragon Coding Level of Care Code D/C Day Management >30 mins Diagnoses Acute combined systolic and diastolic heart failure I50.41 Acute respiratory failure with hypoxia J96.01 Atrial fibrillation with rapid ventricular response I48.91 Peripheral arterial disease I73.9 Osteomyelitis M86.9 Depression F32.9 RLS (restless legs syndrome) G25.81 Anemia D64.9 Peripheral neuropathy G62.9 Peripheral neuropathy type: polyneuropathy, unspecified COPD exacerbation J44.1 Candidiasis of mouth and esophagus B37.81; B37.0 DVT prophylaxis Z29.9
[2020-12-01] MEDS ORDERED: MAGNESIUM OXIDE 400 MG TAB PO STA (14:53)
[2020-12-02] MEDS ORDERED: VANCOMYCIN TROUGH ONE (03:30)
== END 2020-12-01 15:03 | DRG 255 ==
LOC: ED 06:41 → SUATTDRO 10:17 → 2E 12:09 → 2N 11-30 16:06

== ENCOUNTER 2021-02-02 21:45 | Inpatient (IN) ==
[2021-02-02 23:36] LABS: Basophils # (auto) 0.04 K/uL (0-0.2); Basophils % (auto) 0.6 %; Eosinophils # (auto) 0.18 K/uL (0-0.5); Eosinophils % (auto) 2.9 %; Hemoglobin 12.3 g/dL (12.0-16.0); Immature Granulocytes # (auto) 0.02 K/uL (0.00-0.02); Immature Granulocytes % (auto) 0.3 %; Lymphocytes # (auto) 1.89 K/uL (1.2-3.4); Lymphocytes % (auto) 30.3 %; Mean Corpuscular Hgb Conc 34.2 g/dL (32-36); Mean Corpuscular Volume 81.8 fL (80-100); Neutrophils % (auto) 57.9 %; Platelet Count 353 K/uL (130-400); RDW Coefficient of Variation 17.4 % (11.5-14.5); RDW Standard Deviation 52.7 fL (36.4-46.3); White Blood Count 6.23 K/uL (4.8-10.8)
[2021-02-02 23:47] LABS: Appearance Urine Clear (Clear); Bacteria Urine Automated Negative (Negative); Bilirubin Urine Negative (Negative); Blood Urine Negative (Negative); Color Urine Yellow; Epithelial Cell Urine Auto >30 /lpf (0-5); Glucose Urine UA Negative (Negative); Ketones Urine Negative (Negative); Leukocyte Esterase Urine Trace (Negative); Nitrite Urine Negative (Negative); Protein Urine 1+ (Negative); RBC Urine Automated 0-4 /hpf (0-4); Specific Gravity Urine 1.008 (1.000-1.030); Urobilinogen Urine Negative (Negative); pH Urine 5.5 (4.5-7.5)
[2021-02-02 23:50] LABS: BUN Creatinine Ratio 19.4 (10-20); Calcium 9.7 mg/dl (8.5-10.1); Creatinine Clr Calc Pharmacy 29.9 ml/min; Est GFR (Non-African American) 35.3 ml/min; Potassium 3.8 mmol/L (3.5-5.1)
[2021-02-02] MEDS ORDERED: SODIUM CHLORIDE 0.9% 1000ML 500 ML IV ONE (23:52)
[2021-02-03 01:21] LABS: iSTAT Creatinine 1.6 mg/dl (0.6-1.3); iSTAT Hemoglobin 13.3 g/dl (12.0-16.0); iSTAT Ionized Calcium 1.13 mmol/l (1.12-1.32); iSTAT Potassium 3.5 mmol/L (3.3-5.0)
[2021-02-03 01:29] LABS: BUN Creatinine Ratio 20.3 (10-20); Calcium 9.6 mg/dl (8.5-10.1); Est GFR (African American) 44.6 ml/min; Est GFR (Non-African American) 38.5 ml/min; Potassium 3.5 mmol/L (3.5-5.1)
--- NOTE | 2021-02-03 02:17 | History & Physical Report ---
Date of Service February 03, 2021 Assessment & Plan (1) Hyponatremia: Patient is a 75 year old female with PMHx GERD, HLD, HTN, COPD, CHF, Atrial Fibrillation, Depression, PAD, RLS, that presents after having fallen multiple times while at home, found to be profoundly hyponatremic in the ED initially at Na 119. Hyponatremia -Likely the cause of patient's recent falls -Hyponatremic at Na 119 on admission, this increased rapidly to 124 on repeat 3 hours later -Patient had received 1L NSS in the ED -With patient's history in addition to Serum Osm 290 and Urine Osm 198, suspect patient's symptoms secondary to polydipsia vs diuretic use (pt not on a thiazide) -Will fluid restrict patient at this time to 1500ml -Hold diuretics at this time, closely monitor I/O's -Daily weights -BMP q4h -Correct to ~Na 126-127 -Can consider starting patient on sodium tablets outpatient once corrected P Afib -Continue Amiodarone -Continue Eliquis -Continue Metoprolol CHF -Monitor for fluid overload while holding diuretics, though patient fluid restricted -Daily weights -Strict i/o's Peripheral Neuropathy -Continue Gabapentin RLS -Continue Mirapex qhs GERD -Continue Protonix HLD -Continue Lipitor Dispo: PCU for close monitoring of electrolyte balance while correcting hyponatremia FEN: HH diet, Fluid restrict 1500ml/hr DVT: Fredrick Shearer Code: DNR/DNI History of Present Illness Chief Complaint: falls Primary Care Provider: Marley Bates MD Patient is a 75 year old female with PMHx GERD, HLD, HTN, COPD, CHF, Atrial Fibrillation, Depression, PAD, RLS, that presents after having fallen multiple times while at home, found to be profoundly hyponatremic in the ED initially at Na 119. Patient notes that she only recently was discharged back home after a stay at [facility] on 01/28/21. She notes that since being at home she has not really eaten much, but does note drinking 3 beers daily in addition to having roughly 36 oz of bottled water daily. She notes that she does not eat due to "having no appetite." She states that yesterday she fell 3 times while in the kitchen and that "I just fall." Notes she has been compliant with her medications and that she "takes 19 every morning." Currently she is not noting any chest pain, sob, dizziness, abdominal discomfort, fever, chills, vision changes, headache. She is requesting to go home. Med Hx: GERD, HLD, HTN, COPD, CHF, Atrial Fibrillation, Depression, PAD, RLS Surg Hx: S/P Fem-Tib bypass, Appendectomy, Hysterectomy Soc Hx: Smokes 1/2PPD since "age 14." Drinks 3-4 beers daily. No illicit drug use. Allergies Allergy/AdvReac Type Severity Reaction Status Date / Time Penicillins Allergy Intermediate Hives Verified 02/03/21 00:30 Home Medications Medication Instructions Recorded Confirmed Type cholecalciferol (vitamin D3) 25 5,000 unit PO QAM cap 08/11/20 02/03/21 History mcg (1,000 unit) capsule atorvastatin 40 mg PO QAM 09/26/20 02/03/21 History multivitamin with minerals 1 tab PO QAM 09/26/20 02/03/21 History trazodone 50 mg tablet 25 mg PO .COMPLEX PRN #20 tab 09/29/20 02/03/21 Rx Eliquis 5 mg PO BID #0 tab 11/13/20 02/03/21 Rx Lactobacillus acidoph-L.bulgaricus 1 tab PO DAILY 12/08/20 02/03/21 History 1 million cell tablet calcium carbonate 500 mg (1,250 1 tab PO DAILY 12/08/20 02/03/21 History mg)-vitamin D3 200 unit tablet docusate sodium 100 mg capsule 100 mg PO BID 12/08/20 02/03/21 History tramadol 50 mg tablet 50 mg PO Q4H PRN tab 12/08/20 02/03/21 History metoprolol succinate 25 mg 25 mg PO DAILY #30 tab 12/22/20 02/03/21 Rx tablet,extended release 24 hr amiodarone 200 mg tablet 200 mg PO DAILY 01/05/21 02/03/21 History ferrous sulfate 325 mg (65 mg 325 mg PO TID tab 01/05/21 02/03/21 History iron) tablet potassium chloride 20 mEq 20 meq PO BID 01/05/21 02/03/21 History tablet,extended release metolazone 2.5 mg tablet 2.5 mg PO BID PRN tab 01/19/21 02/03/21 History pantoprazole 40 mg tablet,delayed 40 mg PO DAILY 01/19/21 02/03/21 History release spironolactone 50 mg tablet 50 mg PO DAILY 01/19/21 02/03/21 History bumetanide 2 mg PO UD 02/03/21 02/03/21 History furosemide 20 mg PO DAILY 02/03/21 02/03/21 History gabapentin 400 mg PO TID 02/03/21 02/03/21 History nystatin [Nyamyc] 1 applic TOPICAL UD 02/03/21 02/03/21 History pramipexole 0.125 mg PO DAILY 02/03/21 02/03/21 History Past Med/Surg History Medical History Anemia Arthritis Chronic reflux esophagitis Depression Dyslipidemia Hypertension LBBB (left bundle branch block) On apixaban therapy Osteopenia Peripheral arterial disease Peripheral neuropathy Pulmonary nodule RLS (restless legs syndrome) Sleep apnea Surgical History H/O endarterectomy History of appendectomy History of carpal tunnel release of both wrists History of colonoscopy History of tooth extraction Hx of hysterectomy S/P femoral-tibial bypass Family History Other No family history of adverse response to anesthesia Social History Smoking Status: Current every day smoker Tobacco Type: Cigarettes Cigarettes Per Day: 5; Second Hand Exposure: Yes; Do You Dip or Chew Tobacco: No; Tobacco Cessation Education Requested by Patient: No Hx Alcohol Use: Yes Alcohol type: beer Alcohol Intake Frequency Comment: Typically 3-6 beers each day Hx Substance Use: No Preferred Language: Kinyarwanda Communication Ability: Effective Visual Impairment: No Limitations Hearing Ability: Hard of Hearing Transportation Mechanic Required: No Beliefs That Will Affect Care: None marital status: Current Living Situation: Spouse current occupational status: retired How many Children do You have: 1 Other Information That Helps Us Care for You: No Feels Safe at Home: Yes Safety Concerns: Feels Safe At This Time Assistive Devices: Cane and Walker Assistive Devices Comment: cane only Review of Systems Review of Systems: All systems reviewed & are unremarkable except as noted in Subjective Physical Exam Constitutional: cooperative; no acute distress Eyes: PERRL, conjunctivae normal, anicteric sclerae ENMT: external ear and nose normal, oropharynx normal Neck: trachea midline, no thyromegaly Respiratory: normal respiratory effort; no respiratory distress Auscultation: lungs clear to auscultation bilaterally Cardiovascular: Rate/Rhythm: regular rate and regular rhythm Heart Sounds: no murmur Vessels: no JVD Extremities: + edema (+1); no calf tenderness Gastrointestinal (Abdomen): normal bowel sounds, soft, nontender, no hepatosplenomegaly Neurologic: PERRL, EOMI, accommodation nl, no face palsy, no dysarthria Psychiatric: A+Ox3, euthymic affect Genitourinary: Purewick catheter in place Results & Data Results & Data ([facility]) Vital Signs (Past 12 Hours) Vital Signs Temp Pulse Pulse Resp BP BP Pulse Ox 02/03/21 00:50 67 16 140/63 97 02/02/21 23:34 61 16 139/68 97 02/02/21 23:01 60 15 98 02/02/21 23:00 60 16 136/63 98 02/02/21 22:52 66 14 02/02/21 22:40 80 19 96 02/02/21 22:30 26 H 129/68 98 02/02/21 22:20 60 17 96 02/02/21 22:12 63 19 02/02/21 22:01 131/67 02/02/21 21:27 36.7 C 63 14 123/56 L 98 Supervising Physician Co-Signing Physician Notes Attending addendum: I have physically seen this patient, have supervised the medical residents activities, and agree with the H&P unless as otherwise noted. Assessment and Plan: Hyponatremia- Sodium 119, serum osmolality 290, urine osmolality 198 Beer Potomania versus polydipsia, diuretic side effect, combination Fluid restrict to 1500 mL daily Placed on sodium chloride tablets 2 g every morning BMP every 4 hours for the first 24 hours Advised alcohol cessation PAF/CHF- Continue amiodarone, Eliquis and metoprolol Hold bumetanide, furosemide, spironolactone and metolazone Peripheral neuropathy- Continue gabapentin RLS- Continue Mirapex at bedtime Remaining orders and notations as noted Resident Activity Tracking Resident Involvement: Resident Care Provided Care Provided: Adult [facility] Medicine
[2021-02-03] MEDS ORDERED: ONDANSETRON INJ 2 MG/ML 2 ML VIAL IV PRN (04:28)
[2021-02-03] MEDS ORDERED: ACETAMINOPHEN 325 MG TAB PO PRN (04:28)
[2021-02-03 05:10] LABS: Basophils # (auto) 0.03 K/uL (0-0.2); Basophils % (auto) 0.4 %; Eosinophils # (auto) 0.09 K/uL (0-0.5); Eosinophils % (auto) 1.2 %; Hematocrit (blood only) 35.9 % (37-47); Hemoglobin 12.3 g/dL (12.0-16.0); Immature Granulocytes # (auto) 0.01 K/uL (0.00-0.02); Immature Granulocytes % (auto) 0.1 %; Lymphocytes # (auto) 1.17 K/uL (1.2-3.4); Lymphocytes % (auto) 15.6 %; Mean Corpuscular Hemoglobin 27.3 pg (25-34); Mean Corpuscular Hgb Conc 34.3 g/dL (32-36); Mean Corpuscular Volume 79.6 fL (80-100); Mean Platelet Volume 9.6 fL (7.4-10.4); Monocytes # (auto) 0.62 K/uL (0.11-0.59); Monocytes % (auto) 8.3 %; Neutrophils # (auto) 5.57 K/uL (1.4-6.5); Neutrophils % (auto) 74.4 %; Platelet Count 313 K/uL (130-400); RDW Coefficient of Variation 17.3 % (11.5-14.5); RDW Standard Deviation 50.9 fL (36.4-46.3); Red Blood Count 4.51 M/uL (4.2-5.4); White Blood Count 7.49 K/uL (4.8-10.8)
[2021-02-03 05:34] LABS: BUN Creatinine Ratio 21.8 (10-20); Calcium 9.8 mg/dl (8.5-10.1); Est GFR (African American) 49.9 ml/min; Est GFR (Non-African American) 43.1 ml/min; Potassium 3.6 mmol/L (3.5-5.1)
[2021-02-03] MEDS ORDERED: LORazepam 1 MG TAB PO PRN (05:56)
[2021-02-03] MEDS ORDERED: DEXTROSE 5% 1,000 ML IV SCH (06:00)
--- NOTE | 2021-02-03 06:06 | Communication Note ---
Date of Service: February 03, 2021 Patient's 5AM sodium at 127. Will start D5W free water at 100ml/hr at this time to prevent overcorrection. Next check at 9AM. Resident Activity Tracking Resident Involvement: Resident Care Provided and Store Deli Manager Coverage Note Care Provided: Adult Hospital Medicine
--- NOTE | 2021-02-03 07:16 | CT Scan Report ---
CT SCAN OF THE BRAIN WITHOUT IV CONTRAST CLINICAL HISTORY: Lower extremity weakness. COMPARISON STUDY: CT of the brain dated 01/17/2013. TECHNIQUE: Unenhanced axial CT scan of the brain is performed from the vertex to the skull base. A do se lowering technique was utilized adhering to the principles of ALARA. CT DOSE: 537.48 mGy.cm FINDINGS: Brain parenchyma: There are age-related involutional changes noting moderate confluent subcortical a nd periventricular microangiopathic change. There is no hemorrhage, mass effect, or evidence of acute territorial ischemia by CT criteria. Alexander-white matter differentiation is preserved. No extra-axial fluid collection is seen. Ventricles, sulci, cisterns: Prominent secondary to involutional change. Intracranial vasculature: There is atherosclerotic calcification of the cavernous carotid and vertebr al arteries. Calvarium: Unremarkable. Sinuses and mastoids: The visualized paranasal sinuses are clear. The mastoid air cells are well pneu matized. Cerumen fills the external auditory canals. Orbits: The bony orbits are grossly intact. IMPRESSION: There is no hemorrhage, mass effect, or evidence of acute territorial ischemia by CT eric payton. ACT 112: Negative or not required by law. Electronically signed by: Eulalio Gresham M.D. 02/03/2021 7:14 AM
--- NOTE | 2021-02-03 07:36 | XRay Report ---
XR ankle RT min 3V routine CLINICAL HISTORY: Pt c/o Rt ankle pain COMPARISON: None DISCUSSION: No acute fracture or dislocation seen. Mild periosteal reaction is seen in the medial aspect of the right tibial bone. Diffuse soft tissue edema is demonstrated. Heavy vascular calcifications are seen. Skin kirti are seen projecting to the soft tissue anteriorl y to the right fibula. IMPRESSION: No acute fracture or dislocation. Atherosclerosis. Mild periosteal reaction is seen in the medial aspect of the right tibial bone. ACT 112: Negative or not required by law. The above report was generated using voice recognition software. It may contain grammatical, syntax o r spelling errors. Electronically signed by: Olamide Johnson DO 02/03/2021 7:35 AM
[2021-02-03] MEDS ORDERED: DESMOPRESSIN ACETATE 1 MCG in SODIUM CHLORIDE 0.9% 50 ML IV SCH (08:00)
[2021-02-03] MEDS: FERROUS SULFATE 325 MG TAB PO SCH ×3 (08:51→20:43)
[2021-02-03] MEDS: ATORVASTATIN 40 MG TAB PO SCH (08:51)
[2021-02-03] MEDS: CHOLECALCIFEROL 1,000 UNITS 25 MCG TAB PO SCH (08:51)
[2021-02-03] MEDS: AMIODARONE 200 MG TAB PO SCH (08:51)
[2021-02-03] MEDS: APIXABAN 5 MG TABLET PO SCH ×2 (08:52→20:43)
[2021-02-03] MEDS: GABAPENTIN 400 MG CAP PO SCH ×3 (08:52→20:43)
[2021-02-03] MEDS: PRAMIPEXOLE DIHYDROCHLO 0.25 MG TAB PO SCH (08:52)
[2021-02-03] MEDS: METOPROLOL SUCC 25MG EXT REL TAB PO SCH (08:52)
[2021-02-03] MEDS: PANTOprazole 40 MG TAB PO SCH (08:53)
[2021-02-03] MEDS ORDERED: SODIUM CHLORIDE 1 GM TABLET PO SCH (09:00)
[2021-02-03 09:09] LABS: BUN Creatinine Ratio 20.7 (10-20); Est GFR (African American) 49.9 ml/min; Est GFR (Non-African American) 43.1 ml/min; Potassium 3.5 mmol/L (3.5-5.1)
--- NOTE | 2021-02-03 10:47 | Hospitalist Progress Note ---
Date of Service February 03, 2021 Assessment & Plan (1) Hyponatremia: Patient is a 75 year old female with PMHx GERD, HLD, HTN, COPD, CHF, Atrial Fibrillation, Depression, PAD, RLS, that presents after having fallen multiple times while at home, found to be profoundly hyponatremic in the ED initially at Na 119. Hyponatremia: -Likely the cause of patient's recent falls -Hyponatremic at Na 119 on admission, this increased rapidly to 124 on repeat 3 hours later -Patient had received 1L NSS in the ED -With patient's history in addition to Serum Osm 290 and Urine Osm 198, suspect patient's symptoms secondary to polydipsia vs diuretic use (pt not on a thiazide) -Will fluid restrict patient at this time to 1500ml -Na at 1600 of 126 -will attempt to avoid correction faster than 10meq/24hours, with utilization of DDAVP or D5W as needed to slow correction -BMP q4h Paroxysmal Atrial fibrillation: -Continue Amiodarone -Continue Eliquis -Continue Metoprolol Congestive Heart Failure: -Monitor for fluid overload, though patient fluid restricted -Daily weights -Strict i/o's Peripheral Neuropathy: -Continue Gabapentin Restless Leg Syndrome: -Continue Mirapex qhs GERD: -Continue Protonix HLD: -Continue Lipitor FEN: HH diet, Fluid restrict 1500ml/hr DVT: Eliquis, SCDs Code: DNR/DNI (2) Heart failure with mid-range ejection fraction: (3) Alcohol use: (4) Tobacco use: (5) Psychosocial stressors: (6) Paroxysmal atrial fibrillation: Admission and Anticipated Discharge Date Admission Date: February 03, 2021 Supervising Physician Co-Signing Physician Notes I personally examined the patient and verified all magdaleno points of history and exam, discussed case, and agree with decision making with Dr Llamas. Feeling okay. Seems to be less unsteady. No other new complaints. Vitals noted, in general she is awake and alert pleasant no distress. HEENT normocephalic atraumatic mucous membranes moist. Breathing unlabored no accessory muscle use good effort. Skin shows no rashes no pallor or icterus. Neuro shows no focal deficits. Hyponatremiapolydipsia/probably poor solute intakemostly beer Poto ashly type picture. Initially was given a saline bolus in the ER which was leading to too rapid of a correction, fluid restriction would probably suffice, has been given vasopressin to slow her correction. Fortunately correcting a more reasonable pace now. Continue fluid restriction, continue to follow closely, hopefully we can make headway on educating on the importance of eating, and possibly drinking less beer. Otherwise as above Subjective Feeling okay this morning, anxious to get home as she feels like she has to provide care for her at home too. Understands that going home when she is unstable puts both her and her at more risk, and that others can help provide care for him until she is well. Review of Systems Review of Systems: All systems reviewed & are unremarkable except as noted in Subjective Physical Exam Constitutional: WD/WN, vitals as above Eyes: PERRL, conjunctivae normal, anicteric sclerae Respiratory: normal respiratory effort, lungs clear to auscultation Auscultation: no crackles, no rales, no rhonchi and no wheezes Cardiovascular: Rate/Rhythm: regular rate and regular rhythm Heart Sounds: no gallop, no murmur and no cardiac rub Vessels: normal peripheral pulses; no JVD Extremities: no edema Gastrointestinal (Abdomen): Inspection/Auscultation: normal bowel sounds; abdomen not distended Percussion/Palpation: abdomen soft; abdomen nontender and no guarding Musculoskeletal: no cyanosis or clubbing, extremities motor strength 5/5 Skin: no rashes, warm and dry Neurologic: PERRL, EOMI, accommodation nl, no face palsy, no dysarthria CN's II-XI intact bilaterally and moves all extremities Psychiatric: Orientation: alert and oriented x 3 Results & Data Results & Data ([facility]) Vital Signs (Past 12 Hours) Vital Signs Temp Pulse Pulse Resp BP BP Pulse Ox 02/03/21 08:00 36.4 C L 70 69 17 164/67 H 93 02/03/21 04:32 36.5 C 67 18 106/71 94 02/03/21 03:40 72 16 152/59 H 96 02/03/21 02:38 69 16 159/85 H 96 02/03/21 00:50 67 16 140/63 97 02/02/21 23:34 61 16 139/68 97 02/02/21 23:01 60 15 98 02/02/21 23:00 60 16 136/63 98 05/25/21 22:52 66 14 Laboratory Results 02/03/21 02/03/21 02/03/21 Range/Units 16:20 12:18 08:50 WBC (4.8-10.8) K/uL RBC (4.2-5.4) M/uL Hgb (12.0-16.0) g/dL POC Hgb (12.0-16.0) g/dl Hct (37-47) % POC Hct (37-47) % MCV (80-100) fL MCH (25-34) pg MCHC (32-36) g/dL RDW Std Deviation (36.4-46.3) fL RDW Coeff of Janie (11.5-14.5) % Plt Count (130-400) K/uL MPV (7.4-10.4) fL Immature Gran % (Auto) % Neut % (Auto) % Lymph % (Auto) % Mcmullen % (Auto) % Eos % (Auto) % Baso % (Auto) % Neut # (Auto) (1.4-6.5) K/uL Lymph # (Auto) (1.2-3.4) K/uL Mcmullen # (Auto) (0.11-0.59) K/uL Eos # (Auto) (0-0.5) K/uL Baso # (Auto) (0-0.2) K/uL Immature Gran # (Auto) (0.00-0.02) K/uL POC Sodium (135-144) mmol/L Sodium 126 L 124 L (136-145) mmol/L POC Potassium (3.3-5.0) mmol/L Potassium 3.5 3.3 L (3.5-5.1) mmol/L POC Chloride (101-112) mmol/L Chloride 94 L 93 L (98-107) mmol/L Carbon Dioxide 23 20 L (21-32) mmol/L POC Total CO2 (24-31) mmol/L Anion Gap 9.0 12.0 H (3-11) POC Anion Gap (16-25) mmol/L POC BUN (7-18) mg/dl BUN 26 H 28 H (7-18) mg/dl Creatinine 1.12 1.29 H (0.6-1.2) mg/dl POC Creatinine (0.6-1.3) mg/dl Est Cr Clr Drug Dosing 35.4 30.7 ml/min Est GFR ( Amer) 56.4 47.6 ml/min Est GFR (Non-Af Amer) 48.7 41.0 ml/min BUN/Creatinine Ratio 23.3 H 21.4 H (10-20) Glucose 86 134 H (70-99) mg/dl POC Glucose (other) (70-99) mg/dl Osmolality (280-300) mOsm/kg Calcium 8.9 9.2 (8.5-10.1) mg/dl POC Ioniz Calcium Juan (1.12-1.32) mmol/l Urine Color Urine Appearance (Clear) Urine pH (4.5-7.5) Ur Specific [place] (1.000-1.030) Urine Protein (Negative) Urine Glucose (UA) (Negative) Urine Ketones (Negative) Urine Blood (Negative) Urine Nitrite (Negative) Urine Bilirubin (Negative) Urine Urobilinogen (Negative) Ur Leukocyte Esterase (Negative) Urine WBC (Auto) (0-5) /hpf Urine RBC (Auto) (0-4) /hpf U Hyaline Cast (Auto) (0-5) /lpf U Epithel Cells (Auto) (0-5) /lpf Urine Bacteria (Auto) (Negative) Urine Osmolality (500-800) mOsm/kg Nasal Screen MRSA (PCR) (Negative) Ethyl Alcohol mg/dL < 3.0 (0-3) mg/dl COVID-19 Eval Order SARS-CoV-2 (PCR) (Negative) 02/03/21 02/03/21 02/03/21 Range/Units 08:21 05:10 04:58 WBC 7.49 (4.8-10.8) K/uL RBC 4.51 (4.2-5.4) M/uL Hgb 12.3 (12.0-16.0) g/dL POC Hgb (12.0-16.0) g/dl Hct 35.9 L (37-47) % POC Hct (37-47) % MCV 79.6 L (80-100) fL MCH 27.3 (25-34) pg MCHC 34.3 (32-36) g/dL RDW Std Deviation 50.9 H (36.4-46.3) fL RDW Coeff of Janie 17.3 H (11.5-14.5) % Plt Count 313 (130-400) K/uL MPV 9.6 (7.4-10.4) fL Immature Gran % (Auto) 0.1 % Neut % (Auto) 74.4 % Lymph % (Auto) 15.6 % Mcmullen % (Auto) 8.3 % Eos % (Auto) 1.2 % Baso % (Auto) 0.4 % Neut # (Auto) 5.57 (1.4-6.5) K/uL Lymph # (Auto) 1.17 L (1.2-3.4) K/uL Mcmullen # (Auto) 0.62 H (0.11-0.59) K/uL Eos # (Auto) 0.09 (0-0.5) K/uL Baso # (Auto) 0.03 (0-0.2) K/uL Immature Gran # (Auto) 0.01 (0.00-0.02) K/uL POC Sodium (135-144) mmol/L Sodium 124 L (136-145) mmol/L POC Potassium (3.3-5.0) mmol/L Potassium 3.5 (3.5-5.1) mmol/L POC Chloride (101-112) mmol/L Chloride 92 L (98-107) mmol/L Carbon Dioxide 20 L (21-32) mmol/L POC Total CO2 (24-31) mmol/L Anion Gap 11.0 (3-11) POC Anion Gap (16-25) mmol/L POC BUN (7-18) mg/dl BUN 26 H (7-18) mg/dl Creatinine 1.24 H (0.6-1.2) mg/dl POC Creatinine (0.6-1.3) mg/dl Est Cr Clr Drug Dosing 32.0 ml/min Est GFR ( Amer) 49.9 ml/min Est GFR (Non-Af Amer) 43.1 ml/min BUN/Creatinine Ratio 20.7 H (10-20) Glucose 149 H (70-99) mg/dl POC Glucose (other) (70-99) mg/dl Osmolality (280-300) mOsm/kg Calcium 9.0 (8.5-10.1) mg/dl POC Ioniz Calcium Juan (1.12-1.32) mmol/l Urine Color Urine Appearance (Clear) Urine pH (4.5-7.5) Ur Specific [place] (1.000-1.030) Urine Protein (Negative) Urine Glucose (UA) (Negative) Urine Ketones (Negative) Urine Blood (Negative) Urine Nitrite (Negative) Urine Bilirubin (Negative) Urine Urobilinogen (Negative) Ur Leukocyte Esterase (Negative) Urine WBC (Auto) (0-5) /hpf Urine RBC (Auto) (0-4) /hpf U Hyaline Cast (Auto) (0-5) /lpf U Epithel Cells (Auto) (0-5) /lpf Urine Bacteria (Auto) (Negative) Urine Osmolality (500-800) mOsm/kg Nasal Screen MRSA (PCR) Negative (Negative) Ethyl Alcohol mg/dL (0-3) mg/dl COVID-19 Eval Order SARS-CoV-2 (PCR) (Negative) 02/03/21 02/03/21 02/03/21 Range/Units 04:58 01:07 01:00 WBC (4.8-10.8) K/uL RBC (4.2-5.4) M/uL Hgb (12.0-16.0) g/dL POC Hgb 13.3 (12.0-16.0) g/dl Hct (37-47) % POC Hct 39 (37-47) % MCV (80-100) fL MCH (25-34) pg MCHC (32-36) g/dL RDW Std Deviation (36.4-46.3) fL RDW Coeff of Janie (11.5-14.5) % Plt Count (130-400) K/uL MPV (7.4-10.4) fL Immature Gran % (Auto) % Neut % (Auto) % Lymph % (Auto) % Mcmullen % (Auto) % Eos % (Auto) % Baso % (Auto) % Neut # (Auto) (1.4-6.5) K/uL Lymph # (Auto) (1.2-3.4) K/uL Mcmullen # (Auto) (0.11-0.59) K/uL Eos # (Auto) (0-0.5) K/uL Baso # (Auto) (0-0.2) K/uL Immature Gran # (Auto) (0.00-0.02) K/uL POC Sodium 122 L (135-144) mmol/L Sodium 127 L 124 L (136-145) mmol/L POC Potassium 3.5 (3.3-5.0) mmol/L Potassium 3.6 3.5 (3.5-5.1) mmol/L POC Chloride 89 L (101-112) mmol/L Chloride 93 L 89 L (98-107) mmol/L Carbon Dioxide 24 23 (21-32) mmol/L POC Total CO2 22 L (24-31) mmol/L Anion Gap 10.0 12.0 H (3-11) POC Anion Gap 16.0 (16-25) mmol/L POC BUN 29 H (7-18) mg/dl BUN 27 H 28 H (7-18) mg/dl Creatinine 1.24 H 1.36 H (0.6-1.2) mg/dl POC Creatinine 1.6 H (0.6-1.3) mg/dl Est Cr Clr Drug Dosing 32.0 32.0 ml/min Est GFR ( Amer) 49.9 44.6 ml/min Est GFR (Non-Af Amer) 43.1 38.5 ml/min BUN/Creatinine Ratio 21.8 H 20.3 H (10-20) Glucose 71 70 (70-99) mg/dl POC Glucose (other) 73 (70-99) mg/dl Osmolality (280-300) mOsm/kg Calcium 9.8 9.6 (8.5-10.1) mg/dl POC Ioniz Calcium Juan 1.13 (1.12-1.32) mmol/l Urine Color Urine Appearance (Clear) Urine pH (4.5-7.5) Ur Specific [place] (1.000-1.030) Urine Protein (Negative) Urine Glucose (UA) (Negative) Urine Ketones (Negative) Urine Blood (Negative) Urine Nitrite (Negative) Urine Bilirubin (Negative) Urine Urobilinogen (Negative) Ur Leukocyte Esterase (Negative) Urine WBC (Auto) (0-5) /hpf Urine RBC (Auto) (0-4) /hpf U Hyaline Cast (Auto) (0-5) /lpf U Epithel Cells (Auto) (0-5) /lpf Urine Bacteria (Auto) (Negative) Urine Osmolality (500-800) mOsm/kg Nasal Screen MRSA (PCR) (Negative) Ethyl Alcohol mg/dL (0-3) mg/dl COVID-19 Eval Order SARS-CoV-2 (PCR) (Negative) 02/03/21 02/03/21 02/02/21 Range/Units 00:00 00:00 22:54 WBC (4.8-10.8) K/uL RBC (4.2-5.4) M/uL Hgb (12.0-16.0) g/dL POC Hgb (12.0-16.0) g/dl Hct (37-47) % POC Hct (37-47) % MCV (80-100) fL MCH (25-34) pg MCHC (32-36) g/dL RDW Std Deviation (36.4-46.3) fL RDW Coeff of Janie (11.5-14.5) % Plt Count (130-400) K/uL MPV (7.4-10.4) fL Immature Gran % (Auto) % Neut % (Auto) % Lymph % (Auto) % [place] % (Auto) % Eos % (Auto) % Baso % (Auto) % Neut # (Auto) (1.4-6.5) K/uL Lymph # (Auto) (1.2-3.4) K/uL [place] # (Auto) (0.11-0.59) K/uL Eos # (Auto) (0-0.5) K/uL Baso # (Auto) (0-0.2) K/uL Immature Gran # (Auto) (0.00-0.02) K/uL POC Sodium (135-144) mmol/L Sodium (136-145) mmol/L POC Potassium (3.3-5.0) mmol/L Potassium (3.5-5.1) mmol/L POC Chloride (101-112) mmol/L Chloride (98-107) mmol/L Carbon Dioxide (21-32) mmol/L POC Total CO2 (24-31) mmol/L Anion Gap (3-11) POC Anion Gap (16-25) mmol/L POC BUN (7-18) mg/dl BUN (7-18) mg/dl Creatinine (0.6-1.2) mg/dl POC Creatinine (0.6-1.3) mg/dl Est Cr Clr Drug Dosing ml/min Est GFR ( Amer) ml/min Est GFR (Non-Af Amer) ml/min BUN/Creatinine Ratio (10-20) Glucose (70-99) mg/dl POC Glucose (other) (70-99) mg/dl Osmolality (280-300) mOsm/kg Calcium (8.5-10.1) mg/dl POC Ioniz Calcium Juan (1.12-1.32) mmol/l Urine Color Urine Appearance (Clear) Urine pH (4.5-7.5) Ur Specific [place] (1.000-1.030) Urine Protein (Negative) Urine Glucose (UA) (Negative) Urine Ketones (Negative) Urine Blood (Negative) Urine Nitrite (Negative) Urine Bilirubin (Negative) Urine Urobilinogen (Negative) Ur Leukocyte Esterase (Negative) Urine WBC (Auto) (0-5) /hpf Urine RBC (Auto) (0-4) /hpf U Hyaline Cast (Auto) (0-5) /lpf U Epithel Cells (Auto) (0-5) /lpf Urine Bacteria (Auto) (Negative) Urine Osmolality 198 L (500-800) mOsm/kg Nasal Screen MRSA (PCR) (Negative) Ethyl Alcohol mg/dL (0-3) mg/dl COVID-19 Eval Order Covid19 at [facility] SARS-CoV-2 (PCR) NEGATIVE (Negative) 02/02/21 02/02/21 02/02/21 Range/Units 22:54 22:00 22:00 WBC (4.8-10.8) K/uL RBC (4.2-5.4) M/uL Hgb (12.0-16.0) g/dL POC Hgb (12.0-16.0) g/dl Hct (37-47) % POC Hct (37-47) % MCV (80-100) fL MCH (25-34) pg MCHC (32-36) g/dL RDW Std Deviation (36.4-46.3) fL RDW Coeff of Janie (11.5-14.5) % Plt Count (130-400) K/uL MPV (7.4-10.4) fL Immature Gran % (Auto) % Neut % (Auto) % Lymph % (Auto) % [place]mullen % (Auto) % Eos % (Auto) % Baso % (Auto) % Neut # (Auto) (1.4-6.5) K/uL Lymph # (Auto) (1.2-3.4) K/uL Mcmullen # (Auto) (0.11-0.59) K/uL Eos # (Auto) (0-0.5) K/uL Baso # (Auto) (0-0.2) K/uL Immature Gran # (Auto) (0.00-0.02) K/uL POC Sodium (135-144) mmol/L Sodium 119 L* (136-145) mmol/L POC Potassium (3.3-5.0) mmol/L Potassium 3.8 (3.5-5.1) mmol/L POC Chloride (101-112) mmol/L Chloride 87 L (98-107) mmol/L Carbon Dioxide 21 (21-32) mmol/L POC Total CO2 (24-31) mmol/L Anion Gap 12.0 H (3-11) POC Anion Gap (16-25) mmol/L POC BUN (7-18) mg/dl BUN 28 H (7-18) mg/dl Creatinine 1.46 H (0.6-1.2) mg/dl POC Creatinine (0.6-1.3) mg/dl Est Cr Clr Drug Dosing 29.9 ml/min Est GFR ( Amer) 41.0 ml/min Est GFR (Non-Af Amer) 35.3 ml/min BUN/Creatinine Ratio 19.4 (10-20) Glucose 88 (70-99) mg/dl POC Glucose (other) (70-99) mg/dl Osmolality 290 (280-300) mOsm/kg Calcium 9.7 (8.5-10.1) mg/dl POC Ioniz Calcium Juan (1.12-1.32) mmol/l Urine Color Yellow Urine Appearance Clear (Clear) Urine pH 5.5 (4.5-7.5) Ur Specific [place] 1.008 (1.000-1.030) Urine Protein 1+ H (Negative) Urine Glucose (UA) Negative (Negative) Urine Ketones Negative (Negative) Urine Blood Negative (Negative) Urine Nitrite Negative (Negative) Urine Bilirubin Negative (Negative) Urine Urobilinogen Negative (Negative) Ur Leukocyte Esterase Trace H (Negative) Urine WBC (Auto) 1-5 (0-5) /hpf Urine RBC (Auto) 0-4 (0-4) /hpf U Hyaline Cast (Auto) 1-5 (0-5) /lpf U Epithel Cells (Auto) >30 H (0-5) /lpf Urine Bacteria (Auto) Negative (Negative) Urine Osmolality (500-800) mOsm/kg Nasal Screen MRSA (PCR) (Negative) Ethyl Alcohol mg/dL (0-3) mg/dl COVID-19 Eval Order SARS-CoV-2 (PCR) (Negative) 02/02/21 Range/Units 22:00 WBC 6.23 (4.8-10.8) K/uL RBC 4.40 (4.2-5.4) M/uL Hgb 12.3 (12.0-16.0) g/dL POC Hgb (12.0-16.0) g/dl Hct 36.0 L (37-47) % POC Hct (37-47) % MCV 81.8 (80-100) fL MCH 28.0 (25-34) pg MCHC 34.2 (32-36) g/dL RDW Std Deviation 52.7 H (36.4-46.3) fL RDW Coeff of Janie 17.4 H (11.5-14.5) % Plt Count 353 (130-400) K/uL MPV 10.0 (7.4-10.4) fL Immature Gran % (Auto) 0.3 % Neut % (Auto) 57.9 % Lymph % (Auto) 30.3 % [place]mullen % (Auto) 8.0 % Eos % (Auto) 2.9 % Baso % (Auto) 0.6 % Neut # (Auto) 3.60 (1.4-6.5) K/uL Lymph # (Auto) 1.89 (1.2-3.4) K/uL [place]ullen # (Auto) 0.50 (0.11-0.59) K/uL Eos # (Auto) 0.18 (0-0.5) K/uL Baso # (Auto) 0.04 (0-0.2) K/uL Immature Gran # (Auto) 0.02 (0.00-0.02) K/uL POC Sodium (135-144) mmol/L Sodium (136-145) mmol/L POC Potassium (3.3-5.0) mmol/L Potassium (3.5-5.1) mmol/L POC Chloride (101-112) mmol/L Chloride (98-107) mmol/L Carbon Dioxide (21-32) mmol/L POC Total CO2 (24-31) mmol/L Anion Gap (3-11) POC Anion Gap (16-25) mmol/L POC BUN (7-18) mg/dl BUN (7-18) mg/dl Creatinine (0.6-1.2) mg/dl POC Creatinine (0.6-1.3) mg/dl Est Cr Clr Drug Dosing ml/min Est GFR ( Amer) ml/min Est GFR (Non-Af Amer) ml/min BUN/Creatinine Ratio (10-20) Glucose (70-99) mg/dl POC Glucose (other) (70-99) mg/dl Osmolality (280-300) mOsm/kg Calcium (8.5-10.1) mg/dl POC Ioniz Calcium Juan (1.12-1.32) mmol/l Urine Color Urine Appearance (Clear) Urine pH (4.5-7.5) Ur Specific [place] (1.000-1.030) Urine Protein (Negative) Urine Glucose (UA) (Negative) Urine Ketones (Negative) Urine Blood (Negative) Urine Nitrite (Negative) Urine Bilirubin (Negative) Urine Urobilinogen (Negative) Ur Leukocyte Esterase (Negative) Urine WBC (Auto) (0-5) /hpf Urine RBC (Auto) (0-4) /hpf U Hyaline Cast (Auto) (0-5) /lpf U Epithel Cells (Auto) (0-5) /lpf Urine Bacteria (Auto) (Negative) Urine Osmolality (500-800) mOsm/kg Nasal Screen MRSA (PCR) (Negative) Ethyl Alcohol mg/dL (0-3) mg/dl COVID-19 Eval Order SARS-CoV-2 (PCR) (Negative) Resident Activity Tracking Resident Involvement: Resident Care Provided Care Provided: Adult Hospital Medicine
[2021-02-03 12:57] LABS: BUN Creatinine Ratio 21.4 (10-20); Calcium 9.2 mg/dl (8.5-10.1); Creatinine Clr Calc Pharmacy 30.7 ml/min; Est GFR (African American) 47.6 ml/min; Potassium 3.3 mmol/L (3.5-5.1)
[2021-02-03 16:56] LABS: BUN Creatinine Ratio 23.3 (10-20); Calcium 8.9 mg/dl (8.5-10.1); Creatinine Clr Calc Pharmacy 35.4 ml/min; Est GFR (African American) 56.4 ml/min; Est GFR (Non-African American) 48.7 ml/min; Potassium 3.5 mmol/L (3.5-5.1)
--- NOTE | 2021-02-03 17:34 | Billing Data ---
Date of Service February 03, 2021 Coding Level of Care Code 84744 Subseq Hosp Care Lvl 3
[2021-02-03] MEDS: traZODone HCL 50 MG TAB PO PRN (20:43)
[2021-02-03 21:19] LABS: BUN Creatinine Ratio 22.8 (10-20); Calcium 9.4 mg/dl (8.5-10.1); Creatinine Clr Calc Pharmacy 34.5 ml/min; Est GFR (African American) 54.7 ml/min; Est GFR (Non-African American) 47.2 ml/min; Potassium 3.5 mmol/L (3.5-5.1)
[2021-02-04 01:02] LABS: BUN Creatinine Ratio 21.3 (10-20); Calcium 9.3 mg/dl (8.5-10.1); Creatinine Clr Calc Pharmacy 33.9 ml/min; Est GFR (African American) 53.5 ml/min; Est GFR (Non-African American) 46.2 ml/min; Potassium 3.3 mmol/L (3.5-5.1)
--- NOTE | 2021-02-04 01:09 | Billing Data ---
Date of Service February 04, 2021 Coding Level of Care Code 24916 Initial Inpt Care Lvl 3
[2021-02-04 04:54] LABS: BUN Creatinine Ratio 19.2 (10-20); Calcium 9.4 mg/dl (8.5-10.1); Creatinine Clr Calc Pharmacy 31.5 ml/min; Est GFR (African American) 48.9 ml/min; Est GFR (Non-African American) 42.2 ml/min; Potassium 3.6 mmol/L (3.5-5.1)
--- NOTE | 2021-02-04 07:41 | Hospitalist Progress Note ---
Date of Service February 04, 2021 Assessment & Plan (1) Hyponatremia: Patient is a 75 year old female with PMHx GERD, HLD, HTN, COPD, CHF, Atrial Fibrillation, Depression, PAD, RLS, that presents after having fallen multiple times while at home, found to be profoundly hyponatremic in the ED initially at Na 119. Hyponatremia: -Likely the cause of patient's recent falls -Hyponatremic at Na 119 on admission, this increased rapidly to 124 on repeat 3 hours later -Patient had received 1L NSS in the ED -With patient's history in addition to Serum Osm 290 and Urine Osm 198, suspect patient's symptoms secondary to polydipsia vs diuretic use (pt not on a thiazide) -Will fluid restrict patient at this time to 1500ml -Na at 1600 of 127 -will attempt to avoid correction faster than 10meq/24hours, with utilization of DDAVP or D5W as needed to slow correction -start Salt tabs once daily -PT OT consulted given recent falls and discoordination Paroxysmal Atrial fibrillation: -Continue Amiodarone -Continue Eliquis -Continue Metoprolol Congestive Heart Failure: -Monitor for fluid overload, though patient fluid restricted -Daily weights -Strict i/o's Peripheral Neuropathy: -Continue Gabapentin Restless Leg Syndrome: -Continue Mirapex qhs GERD: -Continue Protonix HLD: -Continue Lipitor FEN: HH diet, Fluid restrict 1500ml/hr DVT: Eliquis, SCDs Code: DNR/DNI (2) Heart failure with mid-range ejection fraction: (3) Alcohol use: (4) Tobacco use: (5) Psychosocial stressors: (6) Paroxysmal atrial fibrillation: Admission and Anticipated Discharge Date Admission Date: February 03, 2021 Supervising Physician Co-Signing Physician Notes I personally examined the patient and verified all magdaleno points of history and exam, discussed case, and agree with decision making with Dr Llamas. Feeling better. More steady on her feet. Does not eat much at home. Vitals noted, in general she is awake and alert pleasant no distress. HEENT normocephalic atraumatic mucous membranes moist. Breathing unlabored no accessory muscle use good effort. Skin shows no rashes no pallor or icterus. Neuro shows no focal deficits. Hyponatremiapolydipsia/probably poor solute intakemostly beer Poto ashly type picture. Fluid restricting, sodium improving, also appears to likely have a low solute state from poor p.o. intakestart salt tabs. Hopefully home in the next day or so. Otherwise as above Subjective Feeling okay this morning, anxious to get home as she feels like she has to provide care for her at home too. Understands that going home when she is unstable puts both her and her at more risk, and that others can help provide care for him until she is well. Review of Systems Review of Systems: All systems reviewed & are unremarkable except as noted in Subjective Physical Exam Constitutional: WD/WN, vitals as above Eyes: PERRL, conjunctivae normal, anicteric sclerae Respiratory: normal respiratory effort, lungs clear to auscultation Auscultation: no crackles, no rales, no rhonchi and no wheezes Cardiovascular: Rate/Rhythm: regular rate and regular rhythm Heart Sounds: no gallop, no murmur and no cardiac rub Vessels: normal peripheral pulses; no JVD Extremities: no edema Gastrointestinal (Abdomen): Inspection/Auscultation: normal bowel sounds; abdomen not distended Percussion/Palpation: abdomen soft; abdomen nontender and no guarding Musculoskeletal: no cyanosis or clubbing, extremities motor strength 5/5 Skin: no rashes, warm and dry Neurologic: PERRL, EOMI, accommodation nl, no face palsy, no dysarthria CN's II-XI intact bilaterally and moves all extremities Psychiatric: Orientation: alert and oriented x 3 Results & Data Results & Data ([facility]) Vital Signs (Past 12 Hours) Vital Signs Temp Pulse Pulse Resp BP Pulse Ox 02/04/21 07:24 36.5 C 63 20 147/63 H 94 02/04/21 07:00 62 02/04/21 03:30 36.8 C 64 20 129/64 94 02/03/21 23:25 36.8 C 66 17 134/62 93 02/03/21 22:20 63 02/03/21 19:44 36.8 C 67 15 127/60 91 Laboratory Results 02/04/21 02/04/21 02/04/21 Range/Units 11:35 08:00 04:06 Sodium 126 L 125 L 128 L (136-145) mmol/L Potassium 3.6 3.2 L 3.6 (3.5-5.1) mmol/L Chloride 94 L 93 L 94 L (98-107) mmol/L Carbon Dioxide 26 24 25 (21-32) mmol/L Anion Gap 6.0 8.0 9.0 (3-11) BUN 25 H 25 H 24 H (7-18) mg/dl Creatinine 1.21 H 1.34 H 1.26 H (0.6-1.2) mg/dl Est Cr Clr Drug Dosing 32.7 29.6 31.5 ml/min Est GFR ( Amer) 51.4 45.4 48.9 ml/min Est GFR (Non-Af Amer) 44.4 39.2 42.2 ml/min BUN/Creatinine Ratio 20.6 H 18.9 19.2 (10-20) Glucose 95 139 H 95 (70-99) mg/dl Calcium 9.6 9.7 9.4 (8.5-10.1) mg/dl 02/04/21 02/03/21 02/03/21 Range/Units 00:17 20:34 16:20 Sodium 127 L 124 L 126 L (136-145) mmol/L Potassium 3.3 L 3.5 3.5 (3.5-5.1) mmol/L Chloride 95 L 93 L 94 L (98-107) mmol/L Carbon Dioxide 23 23 23 (21-32) mmol/L Anion Gap 9.0 9.0 9.0 (3-11) BUN 25 H 26 H 26 H (7-18) mg/dl Creatinine 1.17 1.15 1.12 (0.6-1.2) mg/dl Est Cr Clr Drug Dosing 33.9 34.5 35.4 ml/min Est GFR ( Amer) 53.5 54.7 56.4 ml/min Est GFR (Non-Af Amer) 46.2 47.2 48.7 ml/min BUN/Creatinine Ratio 21.3 H 22.8 H 23.3 H (10-20) Glucose 91 86 86 (70-99) mg/dl Calcium 9.3 9.4 8.9 (8.5-10.1) mg/dl Medications Administered Current Inpatient Medications Acetaminophen (Acetaminophen 325 Mg Tab) 650 mg PO Q4H PRN PRN Reason: Pain or Fever Stop: 03/05/21 04:27 Amiodarone HCl (Amiodarone 200 Mg Tab) 200 mg PO DAILY NARESH Stop: 03/05/21 08:59 Last Admin: 02/04/21 08:49 Dose: 200 mg Documented by: Apixaban (Apixaban 5 Mg Tablet) 5 mg PO BID NARESH Stop: 03/05/21 08:59 Last Admin: 02/04/21 08:49 Dose: 5 mg Documented by: Atorvastatin Calcium (Atorvastatin 40 Mg Tab) 40 mg PO QAM NARESH Stop: 03/05/21 08:59 Last Admin: 02/04/21 08:48 Dose: 40 mg Documented by: Ferrous Sulfate (Ferrous Sulfate 325 Mg Tab) 325 mg PO TID NARESH Stop: 03/05/21 08:59 Last Admin: 02/04/21 13:30 Dose: 325 mg Documented by: Gabapentin (Gabapentin 400 Mg Cap) 400 mg PO TID NARESH Stop: 03/05/21 08:59 Last Admin: 02/04/21 13:30 Dose: 400 mg Documented by: Desmopressin Acetate 1 mcg/ (Sodium Chloride) 50.25 mls @ 100 mls/hr IV Q6H NARESH Stop: 03/05/21 07:59 Last Infusion: 02/03/21 09:33 Dose: Infused Documented by: Lorazepam (Lorazepam 1 Mg Tab) 1 mg PO ONE PRN; Protocol PRN Reason: EtoH Withdrawal AWSS 6-10 Metoprolol Succinate (Metoprolol Succ 25mg Ext Rel Tab) 25 mg PO DAILY NARESH Stop: 03/05/21 08:59 Last Admin: 02/04/21 08:49 Dose: 25 mg Documented by: Ondansetron HCl (Ondansetron Inj 2 Mg/Ml 2 Ml Vial) 4 mg IV Q6H PRN PRN Reason: Nausea Stop: 03/05/21 04:27 Pantoprazole Sodium (Pantoprazole 40 Mg Tab) 40 mg PO DAILY NARESH Stop: 03/05/21 08:59 Last Admin: 02/04/21 08:49 Dose: 40 mg Documented by: Pramipexole Dihydrochloride (Pramipexole Dihydrochlo 0.25 Mg Tab) 0.125 mg PO DAILY NARESH Stop: 03/05/21 08:59 Last Admin: 02/04/21 08:48 Dose: 0.125 mg Documented by: Sodium Chloride (Sodium Chloride 1 Gm Tablet) 1 gm PO DAILY NARESH Stop: 03/06/21 11:29 Last Admin: 02/04/21 11:34 Dose: 1 gm Documented by: Trazodone HCl (Trazodone Hcl 50 Mg Tab) 25 mg PO HS PRN PRN Reason: insomnia Stop: 03/05/21 04:27 Last Admin: 02/03/21 20:43 Dose: 25 mg Documented by: Vitamin D (Cholecalciferol 1,000 Units 25 Mcg Tab) 5,000 units PO QAM [facility] Stop: 03/05/21 08:59 Last Admin: 02/04/21 08:48 Dose: 5,000 units Documented by: Resident Activity Tracking Resident Involvement: Resident Care Provided Care Provided: Adult Hospital Medicine
[2021-02-04] MEDS: GABAPENTIN 400 MG CAP PO SCH ×3 (08:48→21:54)
[2021-02-04] MEDS: ATORVASTATIN 40 MG TAB PO SCH (08:48)
[2021-02-04] MEDS: PRAMIPEXOLE DIHYDROCHLO 0.25 MG TAB PO SCH (08:48)
[2021-02-04] MEDS: CHOLECALCIFEROL 1,000 UNITS 25 MCG TAB PO SCH (08:48)
[2021-02-04] MEDS: FERROUS SULFATE 325 MG TAB PO SCH ×3 (08:49→21:54)
[2021-02-04] MEDS: APIXABAN 5 MG TABLET PO SCH ×2 (08:49→21:54)
[2021-02-04] MEDS: PANTOprazole 40 MG TAB PO SCH (08:49)
[2021-02-04] MEDS: METOPROLOL SUCC 25MG EXT REL TAB PO SCH (08:49)
[2021-02-04] MEDS: AMIODARONE 200 MG TAB PO SCH (08:49)
[2021-02-04 08:54] LABS: BUN Creatinine Ratio 18.9 (10-20); Calcium 9.7 mg/dl (8.5-10.1); Creatinine Clr Calc Pharmacy 29.6 ml/min; Est GFR (African American) 45.4 ml/min; Est GFR (Non-African American) 39.2 ml/min; Potassium 3.2 mmol/L (3.5-5.1)
[2021-02-04] MEDS: SODIUM CHLORIDE 1 GM TABLET PO SCH (11:34)
[2021-02-04 12:20] LABS: BUN Creatinine Ratio 20.6 (10-20); Calcium 9.6 mg/dl (8.5-10.1); Creatinine Clr Calc Pharmacy 32.7 ml/min; Est GFR (African American) 51.4 ml/min; Est GFR (Non-African American) 44.4 ml/min; Potassium 3.6 mmol/L (3.5-5.1)
[2021-02-04 16:40] LABS: BUN Creatinine Ratio 18.8 (10-20); Calcium 9.1 mg/dl (8.5-10.1); Creatinine Clr Calc Pharmacy 27.9 ml/min; Est GFR (African American) 42.4 ml/min; Est GFR (Non-African American) 36.5 ml/min; Potassium 3.8 mmol/L (3.5-5.1)
--- NOTE | 2021-02-04 17:45 | Billing Data ---
Date of Service February 04, 2021 Coding Level of Care Code 43515 Subseq Hosp Care Lvl 3
[2021-02-04] MEDS: traZODone HCL 50 MG TAB PO PRN (21:53)
[2021-02-04 23:20] LABS: BUN Creatinine Ratio 20.9 (10-20); Calcium 9.8 mg/dl (8.5-10.1); Creatinine Clr Calc Pharmacy 27.9 ml/min; Est GFR (African American) 42.4 ml/min; Est GFR (Non-African American) 36.5 ml/min; Potassium 3.8 mmol/L (3.5-5.1)
[2021-02-05 05:15] LABS: BUN Creatinine Ratio 21.5 (10-20); Calcium 9.1 mg/dl (8.5-10.1); Creatinine Clr Calc Pharmacy 29.4 ml/min; Est GFR (Non-African American) 38.9 ml/min; Potassium 3.7 mmol/L (3.5-5.1)
--- NOTE | 2021-02-05 08:28 | Discharge Summary ---
Date of Service February 05, 2021 Admission HPI Per Admitting Provider Patient is a 75 year old female with PMHx GERD, HLD, HTN, COPD, CHF, Atrial Fibrillation, Depression, PAD, RLS, that presents after having fallen multiple times while at home, found to be profoundly hyponatremic in the ED initially at Na 119. Patient notes that she only recently was discharged back home after a stay at [facility] on 01/28/21. She notes that since being at home she has not really eaten much, but does note drinking 3 beers daily in addition to having roughly 36 oz of bottled water daily. She notes that she does not eat due to "having no appetite." She states that yesterday she fell 3 times while in the kitchen and that "I just fall." Notes she has been compliant with her medications and that she "takes 19 every morning." Currently she is not noting any chest pain, sob, dizziness, abdominal discomfort, fever, chills, vision changes, headache. She is requesting to go home. Med Hx: GERD, HLD, HTN, COPD, CHF, Atrial Fibrillation, Depression, PAD, RLS Surg Hx: S/P Fem-Tib bypass, Appendectomy, Hysterectomy Soc Hx: Smokes 1/2PPD since "age 14." Drinks 3-4 beers daily. No illicit drug use. Admission Exam Per Admitting Provider Constitutional: cooperative; no acute distress Eyes: PERRL, conjunctivae normal, anicteric sclerae ENMT: external ear and nose normal, oropharynx normal Neck: trachea midline, no thyromegaly Respiratory: normal respiratory effort; no respiratory distress Auscultation: lungs clear to auscultation bilaterally Cardiovascular: Rate/Rhythm: regular rate and regular rhythm Heart Sounds: no murmur Vessels: no JVD Extremities: + edema (+1); no calf tenderness Gastrointestinal (Abdomen): normal bowel sounds, soft, nontender, no hepatosplenomegaly Neurologic: PERRL, EOMI, accommodation nl, no face palsy, no dysarthria Psychiatric: A+Ox3, euthymic affect Genitourinary: Purewick catheter in place Principal Diagnosis Hyponatremia, weakness, falls Discharge Exam Constitutional cooperative and comfortable; no acute distress Eyes PERRL, conjunctivae normal, anicteric sclerae ENMT external ear and nose normal, oropharynx normal Neck normal visual inspection and trachea midline Respiratory normal respiratory effort, lungs clear to auscultation Cardiovascular Rate/Rhythm: regular rate and regular rhythm Heart Sounds: + murmur (systolic best heard at right IC) Gastrointestinal (Abdomen) Inspection/Auscultation: normal bowel sounds Percussion/Palpation: abdomen soft; abdomen nontender, no guarding and abdomen not rigid Musculoskeletal Head/Neck/Chest: normocephalic and head atraumatic Skin no rashes, warm and dry Neurologic moves all extremities and awake Psychiatric Orientation: alert and oriented x 3 Eye Contact: good eye contact Affect: + anxious affect Mood: + anxious mood Thought Process: + looseness of associations Thought Content: + preoccupation Hallucinations: no auditory hallucinations, no visual hallucinations and no tactile hallucinations Insight: + poor insight Judgement: + poor judgement Discharge Data Allergies Allergy/AdvReac Type Severity Reaction Status Date / Time Penicillins Allergy Intermediate Hives Verified 02/03/21 00:30 Consultations 02/02/21 23:53 ED Decision to Admit Stat Ordered Studies 02/02/21 23:51 CT head/brain wo con Urgent There is no hemorrhage, mass effect, or evidence of acute territorial ischemia by CT criteria. Hospital Course (1) Hyponatremia: Patient is a 75 year old female with PMHx GERD, HLD, HTN, COPD, CHF, Atrial Fibrillation, Depression, PAD, RLS, that presents after having fallen multiple times while at home, found to be profoundly hyponatremic in the ED initially at Na 119. Sodium management was treated and improved to a discharge level of 130. She returned to baseline with improvement of levels. She was instructed to limit total fluid intake to 60 oz per day. She was started on salt tab 1gm daily. She was instructed to stop drinking alcohol as her beer intake most likely caused a beer drinkers potomania hyponatremia. She was able to ambulate at baseline. She was agreeable to follow up with home health PT in the home to help with strength and help to prevent falls. She was given an order for repeat BMP to be done early next week. She was instructed to follow up with PCP next week for hospital follow up. She was instructed of importance to follow up with PCP and to not be lost to follow up to prevent re-admission and improve best clinical outcome from hospital treatment provided here. More detailed clinical care note below: Hyponatremia: -Likely the cause of patient's recent falls -Hyponatremic at Na 119 on admission, this increased rapidly to 124 on repeat 3 hours later. Levels improved on discharge to 130. -Patient had received 1L NSS in the ED -With patient's history in addition to Serum Osm 290 and Urine Osm 198, suspect patient's symptoms secondary to polydipsia/beer drinkers potomania hyponatremia possibly -start Salt tabs 1gm once daily; provided Rx on discharge. -PT OT consulted given recent falls and discoordination; will get PT in home as part of dispo planning. Paroxysmal Atrial fibrillation: -Continue Amiodarone -Continue Eliquis -Continue Metoprolol Congestive Heart Failure: -Monitor for fluid overload, though patient fluid restricted -Daily weights -Strict i/o's Peripheral Neuropathy: -Continue Gabapentin Restless Leg Syndrome: -Continue Mirapex qhs GERD: -Continue Protonix HLD: -Continue Lipitor FEN: HH diet, Fluid restrict 1500ml/hr DVT: Eliquis, SCDs Code: DNR/DNI (2) Heart failure with mid-range ejection fraction: (3) Alcohol use: (4) Tobacco use: (5) Psychosocial stressors: (6) Paroxysmal atrial fibrillation: Total Time Total Time Spent Total Time Spent (In Minutes): <30 Discharge Plan Discharge Items Patient Disposition: Home - Home Health Services Reason For Visit: HYPONATREMIA, WEAKNESS, FALLS Discharge Diagnosis: Hyponatremia, weakness, falls Activity: Per Instructions section Non-emergency contact: Primary Care Provider Call non-emergency contact if: you have any medication questions and your pain is not controlled Follow-up/Referrals: Marley Bates MD [Primary Care Provider] - 02/10/21 12:30 pm (Pt is scheduled for a hosp f/u appt with Dr. Bates on 02/10/21 at 12:30. ) Diet: Regular Ambulatory Orders: Basic Metabolic Panel (Routine) Timeframe: 3 Days Location: Determined by Patient Ordered By: Sunny Bell Attending Provider Instructions: You were hospitalzied for weakness and falling at home. You were found to have low sodium levels in your blood which is a condition called Hyponatremia. This is most likely caused by your alcohol intake and not enough salt intake from food. Alcohol and most beverages do not have salt in them. When you drink a lot of fluids without getting enough salt from your diet this lowers the concentration of salt in your blood. This is most likely your reason for falling along with alcohol causing you to fall from being off balance. We also advise that you limit your total volume of water/any and all fluid intake to no more than 60 fluid ounces per day. You were prescribed a new medication called Salt tab. You will take one pill at night. This medication is 1gm of salt. Please follow up with your Primary Care Physician next week for follow up. You will need to get blood work performed on Monday or Monday of next week; you are given an order for blood work. Result will go to your Primary Care Physician. We need to get blood work to check your sodium level to make sure that it did not drop/decrease to a level that might make you feel ill/weak/off balance. This blood work is also important to see how your body responded and improved to the new medication of salt tab 1gm per day. If you experience worsening of your symptoms please return to [facility] ED for evaluation or call 911 for emergent medical evaluation. Pending Studies at Discharge: No Stand-Alone Forms: My [facility], Smoking Cessation Medications and DC Order Prescriptions: New sodium chloride 1 gram Tablet 1 g PO DAILY Qty: 30 RF: 0 Continued trazodone 50 mg tablet 25 mg PO .COMPLEX PRN (Reason: insomnia) Qty: 20 RF: 2 potassium chloride 20 mEq tablet extended release 20 meq PO BID RF: 0 amiodarone 200 mg tablet 200 mg PO DAILY RF: 0 ferrous sulfate 325 mg (65 mg iron) tablet 325 mg PO TID RF: 0 calcium carbonate-vitamin D3 [Calcium 500 + D] 500 mg(1,250mg) -200 unit tablet 1 tab PO DAILY RF: 0 docusate sodium 100 mg capsule 100 mg PO BID RF: 0 Lactobacillus acidoph-L.bulgar [Floranex] 1 million cell tablet 1 tab PO DAILY RF: 0 tramadol 50 mg tablet 50 mg PO Q4H PRN (Reason: pain) RF: 0 cholecalciferol (vitamin D3) 25 mcg (1,000 unit) capsule 5,000 unit PO QAM RF: 0 metoprolol succinate 25 mg tablet extended release 24 hr 25 mg PO DAILY Qty: 30 RF: 2 spironolactone 50 mg tablet 50 mg PO DAILY RF: 0 pantoprazole 40 mg tablet,delayed release (DR/EC) 40 mg PO DAILY RF: 0 metolazone 2.5 mg tablet 2.5 mg PO BID PRN (Reason: swelling) RF: 0 multivitamin with minerals Tablet 1 tab PO QAM RF: 0 atorvastatin 40 mg tablet 40 mg PO QAM RF: 0 Eliquis 5 mg Tablet 5 mg PO BID Qty: 0 RF: 0 gabapentin 400 mg capsule 400 mg PO TID RF: 0 bumetanide 1 mg tablet 2 mg PO UD RF: 0 pramipexole 0.125 mg tablet 0.125 mg PO DAILY RF: 0 nystatin [Nyamyc] 100,000 unit/gram powder 1 applic TOPICAL UD RF: 0 furosemide 20 mg tablet 20 mg PO DAILY RF: 0 Discharge Orders: Discharge Order (Routine); Ordered 02/05/21 Ordered By: Sunny Hernandez/Other Patient Handouts: Tips Cardiovascular Quit Smoking, Preventing Deep Vein Thrombosis, Understanding Alcoholism, Alcoholism Resources, Hyponatremia Dc, Preventing Falls Making Changes ..., Preventing Falls Moving Safely ..., Preventing Falls Make Your Health ... Admission Data Admit Date/Time: 02/03/21 02:27 Attending Provider: Ollie Baxter Admit Provider: Mahesh Garcia Primary Care Provider: Marley Bates Other Providers: [place] ; Leobardo Matias Other Interventions: Discharge Summary Assessment (RN) Last Done: 02/05/21 11:47 Supervising Physician Co-Signing Physician Notes I personally examined the patient and verified all magdaleno points of history and exam, discussed case, and agree with decision making with Dr Edmond. Feels okay. Wants to go home. Feels like her normal degree of steadiness on her feet. Vitals noted, in general she is awake and alert pleasant no distress. HEENT normocephalic atraumatic mucous membranes moist. Breathing unlabored no accessory muscle use good effort. Skin shows no rashes no pallor or icterus. Neuro shows no focal deficits. Walked with patient. She was able to get out of bed on her own used her cane, was able to walk about 20 feet down the hallway and then we turned around and back to her room. She showed no instability. She does have a little bit of a wide-based gait, but she notes this is her baseline. Hyponatremiapolydipsia/probably poor solute intakemostly beer Poto ashly type picture. Discussed outpatient fluid restriction. Due to her low solute statesalt tabs added, discussed this would hopefully be temporary until her p.o. intake improves as well. Stable for home. Outpatient PT. Labs next week. Otherwise as above Resident Activity Tracking Resident Involvement: Resident Care Provided Care Provided: [facility] Attestation I certify that this patient is under my care and that I, or a physicians stylist assistant working with me, had a face to-face encounter that meets the home health [id number] encounter requirements with this patient. The encounter with the patient was in whole, or in part, for the following medical condition, which is the primary reason for home health care (list medical condition): Hyponatremia, Weakness, Falls, Ambulatory Dysfunction I certify that, based on my findings, the following services are medically necessary home health services: My clinical findings support the need for the above services because: OT Assess ADL Status and Restore Function w ADLs PT Assessment for Endurance / Balance / Strength Skilled Nsg Assessment Vital Signs Further, I certify that my clinical findings support that this patient is homebound (i.e. absences from home require considerable and taxing effort and are for medical reasons or yarsanism services or infrequently or of short duration when for other reasons) because: Supportive Aid - Walker Certification for Home Health Services: Based on the above findings, I certify that this patient is confined to the home and needs intermittent intermediate care, physical therapy and/or speech therapy or continues to need occupational therapy. The patient is under my care, and I have initiated the establishment of the plan of care. This patient will be followed by a physician who will periodically review the plan of care.
[2021-02-05] MEDS: AMIODARONE 200 MG TAB PO SCH (08:45)
[2021-02-05] MEDS: APIXABAN 5 MG TABLET PO SCH (08:45)
[2021-02-05] MEDS: ATORVASTATIN 40 MG TAB PO SCH (08:46)
[2021-02-05] MEDS: CHOLECALCIFEROL 1,000 UNITS 25 MCG TAB PO SCH (08:46)
[2021-02-05] MEDS: FERROUS SULFATE 325 MG TAB PO SCH (08:47)
[2021-02-05] MEDS: GABAPENTIN 400 MG CAP PO SCH (08:49)
[2021-02-05] MEDS: METOPROLOL SUCC 25MG EXT REL TAB PO SCH (08:49)
[2021-02-05] MEDS: PRAMIPEXOLE DIHYDROCHLO 0.25 MG TAB PO SCH (08:50)
[2021-02-05] MEDS: SODIUM CHLORIDE 1 GM TABLET PO SCH (08:50)
[2021-02-05] MEDS: PANTOprazole 40 MG TAB PO SCH (08:50)
[2021-02-05 11:25] LABS: BUN Creatinine Ratio 21.4 (10-20); Calcium 9.3 mg/dl (8.5-10.1); Creatinine Clr Calc Pharmacy 28.5 ml/min; Est GFR (African American) 43.5 ml/min; Est GFR (Non-African American) 37.5 ml/min; Potassium 3.2 mmol/L (3.5-5.1)
--- NOTE | 2021-02-05 19:35 | Billing Data ---
Date of Service February 05, 2021 Coding Level of Care Code D/C Day Management <30 mins
--- NOTE | 2021-02-06 02:50 | Emergency Department Note ---
Impression & Plan Hyponatremia, Altered mental status ED Provider Note Going forNAME: DINORAH BUSTAMANTE AGE: 75 SEX: F : 1945 ARRIVES VIA: Ambulance INFORMANT: Patient, ED PROVIDER(S): Lamont Fagan MD CHIEF COMPLAINT: Leg weakness HPI: This is a 75-year-old female who presents emergency department complaining of bilateral leg weakness that has been ongoing for the past week. The patient appears very confused at the time of examination and cannot quite explain the weakness. She is rambling at times. She reports nothing seems to make the weakness better or worse. She has not taken anything for the weakness prior to arrival. ROS: See above HPI for pertinent positives & negatives. A total of 10 systems reviewed and were otherwise negative. PAST MEDICAL HISTORY: See Below PAST SURGICAL HISTORY: See Below FAMILY HISTORY: See Below SOCIAL HISTORY: See Below HOME MEDICATIONS: See Below ALLERGIES: See Below VITALS: See Below PHYSICAL EXAMINATION: VITAL SIGNS - Vital signs and nursing notes were reviewed. GENERAL - 75-year-old female appearing stated age who is in no acute distress. Appears confused and keeps asking questions about her leg. SKIN - Without rashes. HEAD - NC/AT. EYES - PERRL with EOMI bilaterally. Sclera anicteric. Palpebral conjunctiva pink and moist with no injection noted. EARS - No deformities of external structures noted on gross examination bilate rally. NOSE - Midline and without cyanosis. No epistaxis or purulent drainage noted. Septum midline without deviation or septal hematoma noted. MOUTH/OROPHARYNX - Without perioral cyanosis. Buccal mucosa pink and moist and without leukoplakia. Tongue midline with equal elevation of palate bilaterally. No tonsillar hypertrophy, erythema, or exudates noted. NECK - Neck with FROM. Supple to palpation. No nuchal rigidity. LUNGS - Chest wall symmetric without accessory muscle use, intercostals retractions, or central cyanosis. Normal vesicular breath sounds CTA B/L. No wheezes, rales, or rhonchi appreciated. CARDIAC - RRR with S1/S2. No murmur, rubs, or gallops appreciated. ABDOMEN - Abdominal contour without pulsations or visible masses. BS normoactive all four quadrants. No tenderness, palpable masses, hepatosplenomegaly, or ascites noted. EXTREMITIES - No clubbing or peripheral cyanosis. No pretibial edema present. +3/5 radial, posterior tibial, and dorsalis pedis pulses palpated throughout. +5/5 strength noted in UE/LE bilaterally. NEUROLOGIC - Cranial nerves II through XII grossly intact. Sensory intact to light touch throughout. Patellar reflexes +2/4. PSYCH - A&Ox3 and cooperates fully with examiner. MEDICAL DECISION MAKING: Patient was seen and evaluated as above in room A11. Review was performed of nursing notes and vital signs. I did review pertinent previous visits and patient history. After obtaining a thorough history and physical examination the above work up was performed. This 75-year-old female who has vague complaints of weight weakness. The patient appears very confused as well. She was found to be hyponatremic. She was given a normal saline bolus and the sodium was again confirmed. I did discuss the case with the hospitalist service who did agree to admit the patient. An order was placed for continuous cardiac monitoring. The monitor shows a rate of 61 with Normal Sinus rhythm. The patient was evaluated during a period of high volume and high acuity during the global COVID-19 pandemic, and that diagnosis was suspected/considered upon their initial presentation. Their evaluation, treatment and testing was consistent with current guidelines for patients who present with complaints or symptoms that may be related to COVID-19. Patient was seen while provider was wearing PPE. Triage Nursing notes reviewed. Prior medical records reviewed Vital Signs: reviewed and remarkable for no significant abnormalities Differential diagnosis: Infection, dehydration, metabolic abnormality, hypo/hyperglycemia, electrolyte disturbance, anemia, hypoxia, cardiac sources, intracerebral event, toxicologic, neurologic, as well as other pathologies. ER treatment provided: See below Laboratory studies: As stated above and show below. Imaging studies: See below Consultation(s): Internal Medicine Critical Care: I have personally spent greater than 30 minutes of critical care time in the direct management of this patient. This includes bedside care, interpretation of diagnostic studies, and testing, discussion with consultants, patient, and family members, and other required patient management activities. This 30 minutes is in excess of all separately billable procedures. Past Med/Surg History Medical History Anemia Arthritis Chronic reflux esophagitis Depression Dyslipidemia Hypertension LBBB (left bundle branch block) On apixaban therapy Osteopenia Peripheral arterial disease Peripheral neuropathy Pulmonary nodule RLS (restless legs syndrome) Sleep apnea Surgical History H/O endarterectomy History of appendectomy History of carpal tunnel release of both wrists History of colonoscopy History of tooth extraction Hx of hysterectomy S/P femoral-tibial bypass Family History Other No family history of adverse response to anesthesia Social History Smoking Status: Current every day smoker Tobacco Type: Cigarettes Cigarettes Per Day: 5; Second Hand Exposure: Yes; Hx Alcohol Use: Yes Alcohol type: beer Alcohol Intake Frequency Comment: Typically 3-6 beers each day Hx Substance Use: No Preferred Language: Mongolian Communication Ability: Effective Visual Impairment: No Limitations Hearing Ability: Hard of Hearing Technical Consultant Required: No Beliefs That Will Affect Care: None marital status: Current Living Situation: Spouse current occupational status: retired How many Children do You have: 1 Feels Safe at Home: Yes Assistive Devices: Glasses Allergies Allergies Allergy/AdvReac Type Severity Reaction Status Date / Time Penicillins Allergy Intermediate Hives Verified 02/03/21 00:30 Home Meds Home Medications Medication Instructions Recorded Confirmed cholecalciferol (vitamin D3) 25 5,000 unit PO QAM cap 08/11/20 02/03/21 mcg (1,000 unit) capsule atorvastatin 40 mg PO QAM 09/26/20 02/03/21 multivitamin with minerals 1 tab PO QAM 09/26/20 02/03/21 Lactobacillus acidoph-L.bulgaricus 1 tab PO DAILY 12/08/20 02/03/21 1 million cell tablet calcium carbonate 500 mg (1,250 1 tab PO DAILY 12/08/20 02/03/21 mg)-vitamin D3 200 unit tablet docusate sodium 100 mg capsule 100 mg PO BID 12/08/20 02/03/21 tramadol 50 mg tablet 50 mg PO Q4H PRN tab 12/08/20 02/03/21 amiodarone 200 mg tablet 200 mg PO DAILY 01/05/21 02/03/21 ferrous sulfate 325 mg (65 mg 325 mg PO TID tab 01/05/21 02/03/21 iron) tablet potassium chloride 20 mEq 20 meq PO BID 01/05/21 02/03/21 tablet,extended release metolazone 2.5 mg tablet 2.5 mg PO BID PRN tab 01/19/21 02/03/21 pantoprazole 40 mg tablet,delayed 40 mg PO DAILY 01/19/21 02/03/21 release spironolactone 50 mg tablet 50 mg PO DAILY 01/19/21 02/03/21 bumetanide 2 mg PO UD 02/03/21 02/03/21 furosemide 20 mg PO DAILY 02/03/21 02/03/21 gabapentin 400 mg PO TID 02/03/21 02/03/21 nystatin [Nyamyc] 1 applic TOPICAL UD 02/03/21 02/03/21 pramipexole 0.125 mg PO DAILY 02/03/21 02/03/21 Previous Rx's Medication Instructions Recorded trazodone 50 mg tablet 25 mg PO .COMPLEX PRN #20 tab 09/29/20 Eliquis 5 mg PO BID #0 tab 11/13/20 metoprolol succinate 25 mg 25 mg PO DAILY #30 tab 12/22/20 tablet,extended release 24 hr sodium chloride 1 g PO DAILY #30 tab 02/05/21 Results & Data (ED) Laboratory Data Result diagrams: 02/03/21 04:58 02/05/21 10:46 Lab Results 02/02/21 02/02/21 02/02/21 Range/Units 22:00 22:00 22:00 WBC 6.23 (4.8-10.8) K/uL RBC 4.40 (4.2-5.4) M/uL Hgb 12.3 (12.0-16.0) g/dL POC Hgb (12.0-16.0) g/dl Hct 36.0 L (37-47) % POC Hct (37-47) % MCV 81.8 (80-100) fL MCH 28.0 (25-34) pg MCHC 34.2 (32-36) g/dL RDW Std Deviation 52.7 H (36.4-46.3) fL RDW Coeff of Janie 17.4 H (11.5-14.5) % Plt Count 353 (130-400) K/uL MPV 10.0 (7.4-10.4) fL Immature Gran % (Auto) 0.3 % Neut % (Auto) 57.9 % Lymph % (Auto) 30.3 % [place] % (Auto) 8.0 % Eos % (Auto) 2.9 % Baso % (Auto) 0.6 % Neut # (Auto) 3.60 (1.4-6.5) K/uL Lymph # (Auto) 1.89 (1.2-3.4) K/uL [place] # (Auto) 0.50 (0.11-0.59) K/uL Eos # (Auto) 0.18 (0-0.5) K/uL Baso # (Auto) 0.04 (0-0.2) K/uL Immature Gran # (Auto) 0.02 (0.00-0.02) K/uL POC Sodium (135-144) mmol/L Sodium 119 L* (136-145) mmol/L POC Potassium (3.3-5.0) mmol/L Potassium 3.8 (3.5-5.1) mmol/L POC Chloride (101-112) mmol/L Chloride 87 L (98-107) mmol/L Carbon Dioxide 21 (21-32) mmol/L POC Total CO2 (24-31) mmol/L Anion Gap 12.0 H (3-11) POC Anion Gap (16-25) mmol/L POC BUN (7-18) mg/dl BUN 28 H (7-18) mg/dl Creatinine 1.46 H (0.6-1.2) mg/dl POC Creatinine (0.6-1.3) mg/dl Est Cr Clr Drug Dosing 29.9 ml/min Est GFR ( Amer) 41.0 ml/min Est GFR (Non-Af Amer) 35.3 ml/min BUN/Creatinine Ratio 19.4 (10-20) Glucose 88 (70-99) mg/dl POC Glucose (other) (70-99) mg/dl Osmolality 290 (280-300) mOsm/kg Calcium 9.7 (8.5-10.1) mg/dl POC Ioniz Calcium Juan (1.12-1.32) mmol/l Urine Color Urine Appearance (Clear) Urine pH (4.5-7.5) Ur Specific [place] (1.000-1.030) Urine Protein (Negative) Urine Glucose (UA) (Negative) Urine Ketones (Negative) Urine Blood (Negative) Urine Nitrite (Negative) Urine Bilirubin (Negative) Urine Urobilinogen (Negative) Ur Leukocyte Esterase (Negative) Urine WBC (Auto) (0-5) /hpf Urine RBC (Auto) (0-4) /hpf U Hyaline Cast (Auto) (0-5) /lpf U Epithel Cells (Auto) (0-5) /lpf Urine Bacteria (Auto) (Negative) Urine Osmolality (500-800) mOsm/kg COVID-19 Eval Order SARS-CoV-2 (PCR) (Negative) 02/02/21 02/02/21 02/03/21 Range/Units 22:54 22:54 00:00 WBC (4.8-10.8) K/uL RBC (4.2-5.4) M/uL Hgb (12.0-16.0) g/dL POC Hgb (12.0-16.0) g/dl Hct (37-47) % POC Hct (37-47) % MCV (80-100) fL MCH (25-34) pg MCHC (32-36) g/dL RDW Std Deviation (36.4-46.3) fL RDW Coeff of Janie (11.5-14.5) % Plt Count (130-400) K/uL MPV (7.4-10.4) fL Immature Gran % (Auto) % Neut % (Auto) % Lymph % (Auto) % [place] % (Auto) % Eos % (Auto) % Baso % (Auto) % Neut # (Auto) (1.4-6.5) K/uL Lymph # (Auto) (1.2-3.4) K/uL [place] # (Auto) (0.11-0.59) K/uL Eos # (Auto) (0-0.5) K/uL Baso # (Auto) (0-0.2) K/uL Immature Gran # (Auto) (0.00-0.02) K/uL POC Sodium (135-144) mmol/L Sodium (136-145) mmol/L POC Potassium (3.3-5.0) mmol/L Potassium (3.5-5.1) mmol/L POC Chloride (101-112) mmol/L Chloride (98-107) mmol/L Carbon Dioxide (21-32) mmol/L POC Total CO2 (24-31) mmol/L Anion Gap (3-11) POC Anion Gap (16-25) mmol/L POC BUN (7-18) mg/dl BUN (7-18) mg/dl Creatinine (0.6-1.2) mg/dl POC Creatinine (0.6-1.3) mg/dl Est Cr Clr Drug Dosing ml/min Est GFR ( Amer) ml/min Est GFR (Non-Af Amer) ml/min BUN/Creatinine Ratio (10-20) Glucose (70-99) mg/dl POC Glucose (other) (70-99) mg/dl Osmolality (280-300) mOsm/kg Calcium (8.5-10.1) mg/dl POC Ioniz Calcium Juan (1.12-1.32) mmol/l Urine Color Yellow Urine Appearance Clear (Clear) Urine pH 5.5 (4.5-7.5) Ur Specific [place] 1.008 (1.000-1.030) Urine Protein 1+ H (Negative) Urine Glucose (UA) Negative (Negative) Urine Ketones Negative (Negative) Urine Blood Negative (Negative) Urine Nitrite Negative (Negative) Urine Bilirubin Negative (Negative) Urine Urobilinogen Negative (Negative) Ur Leukocyte Esterase Trace H (Negative) Urine WBC (Auto) 1-5 (0-5) /hpf Urine RBC (Auto) 0-4 (0-4) /hpf U Hyaline Cast (Auto) 1-5 (0-5) /lpf U Epithel Cells (Auto) >30 H (0-5) /lpf Urine Bacteria (Auto) Negative (Negative) Urine Osmolality 198 L (500-800) mOsm/kg COVID-19 Eval Order Covid19 at [facility] SARS-CoV-2 (PCR) (Negative) 02/03/21 02/03/21 02/03/21 Range/Units 00:00 01:00 01:07 WBC (4.8-10.8) K/uL RBC (4.2-5.4) M/uL Hgb (12.0-16.0) g/dL POC Hgb 13.3 (12.0-16.0) g/dl Hct (37-47) % POC Hct 39 (37-47) % MCV (80-100) fL MCH (25-34) pg MCHC (32-36) g/dL RDW Std Deviation (36.4-46.3) fL RDW Coeff of Janie (11.5-14.5) % Plt Count (130-400) K/uL MPV (7.4-10.4) fL Immature Gran % (Auto) % Neut % (Auto) % Lymph % (Auto) % [place] % (Auto) % Eos % (Auto) % Baso % (Auto) % Neut # (Auto) (1.4-6.5) K/uL Lymph # (Auto) (1.2-3.4) K/uL [place] # (Auto) (0.11-0.59) K/uL Eos # (Auto) (0-0.5) K/uL Baso # (Auto) (0-0.2) K/uL Immature Gran # (Auto) (0.00-0.02) K/uL POC Sodium 122 L (135-144) mmol/L Sodium 124 L (136-145) mmol/L POC Potassium 3.5 (3.3-5.0) mmol/L Potassium 3.5 (3.5-5.1) mmol/L POC Chloride 89 L (101-112) mmol/L Chloride 89 L (98-107) mmol/L Carbon Dioxide 23 (21-32) mmol/L POC Total CO2 22 L (24-31) mmol/L Anion Gap 12.0 H (3-11) POC Anion Gap 16.0 (16-25) mmol/L POC BUN 29 H (7-18) mg/dl BUN 28 H (7-18) mg/dl Creatinine 1.36 H (0.6-1.2) mg/dl POC Creatinine 1.6 H (0.6-1.3) mg/dl Est Cr Clr Drug Dosing 32.0 ml/min Est GFR ( Amer) 44.6 ml/min Est GFR (Non-Af Amer) 38.5 ml/min BUN/Creatinine Ratio 20.3 H (10-20) Glucose 70 (70-99) mg/dl POC Glucose (other) 73 (70-99) mg/dl Osmolality (280-300) mOsm/kg Calcium 9.6 (8.5-10.1) mg/dl POC Ioniz Calcium Juan 1.13 (1.12-1.32) mmol/l Urine Color Urine Appearance (Clear) Urine pH (4.5-7.5) Ur Specific [place] (1.000-1.030) Urine Protein (Negative) Urine Glucose (UA) (Negative) Urine Ketones (Negative) Urine Blood (Negative) Urine Nitrite (Negative) Urine Bilirubin (Negative) Urine Urobilinogen (Negative) Ur Leukocyte Esterase (Negative) Urine WBC (Auto) (0-5) /hpf Urine RBC (Auto) (0-4) /hpf U Hyaline Cast (Auto) (0-5) /lpf U Epithel Cells (Auto) (0-5) /lpf Urine Bacteria (Auto) (Negative) Urine Osmolality (500-800) mOsm/kg COVID-19 Eval Order SARS-CoV-2 (PCR) NEGATIVE (Negative) Administered Medications Discontinued Medications Amiodarone HCl (Amiodarone 200 Mg Tab) 200 mg PO DAILY NARESH Stop: 03/05/21 08:59 Last Admin: 02/05/21 08:45 Dose: 200 mg Documented by: [id number] Admin: 02/04/21 08:49 Dose: 200 mg Documented by: [id number] Admin: 02/03/21 08:51 Dose: 200 mg Documented by: [id number] Apixaban (Apixaban 5 Mg Tablet) 5 mg PO BID NARESH Stop: 03/05/21 08:59 Last Admin: 02/05/21 08:45 Dose: 5 mg Documented by: [id number] Admin: 02/04/21 21:54 Dose: 5 mg Documented by: [id number] Admin: 02/04/21 08:49 Dose: 5 mg Documented by: [id number] Admin: 02/03/21 20:43 Dose: 5 mg Documented by: [id number] Admin: 02/03/21 08:52 Dose: 5 mg Documented by: [id number] Atorvastatin Calcium (Atorvastatin 40 Mg Tab) 40 mg PO QAM NARESH Stop: 03/05/21 08:59 Last Admin: 02/05/21 08:46 Dose: 40 mg Documented by: [id number] Admin: 02/04/21 08:48 Dose: 40 mg Documented by: [id number] Admin: 02/03/21 08:51 Dose: 40 mg Documented by: [id number] Ferrous Sulfate (Ferrous Sulfate 325 Mg Tab) 325 mg PO TID NARESH Stop: 03/05/21 08:59 Last Admin: 02/05/21 08:47 Dose: 325 mg Documented by: [id number] Admin: 02/04/21 21:54 Dose: 325 mg Documented by: [id number] Admin: 02/04/21 13:30 Dose: 325 mg Documented by: [id number] Admin: 02/04/21 08:49 Dose: 325 mg Documented by: [id number] Admin: 02/03/21 20:43 Dose: 325 mg Documented by: [id number] Admin: 02/03/21 14:30 Dose: 325 mg Documented by: [id number] Admin: 02/03/21 08:51 Dose: 325 mg Documented by: [id number] Gabapentin (Gabapentin 400 Mg Cap) 400 mg PO TID NARESH Stop: 03/05/21 08:59 Last Admin: 02/05/21 08:49 Dose: 400 mg Documented by: [id number] Admin: 02/04/21 21:54 Dose: 400 mg Documented by: [id number] Admin: 02/04/21 13:30 Dose: 400 mg Documented by: [id number] Admin: 02/04/21 08:48 Dose: 400 mg Documented by: [id number] Admin: 02/03/21 20:43 Dose: 400 mg Documented by: [id number] Admin: 02/03/21 14:30 Dose: 400 mg Documented by: [id number] Admin: 02/03/21 08:52 Dose: 400 mg Documented by: [id number] Sodium Chloride (Nss 1000ml) 500 mls @ 999 mls/hr IV .Q31M ONE Stop: 02/03/21 00:22 Last Infusion: 02/03/21 00:41 Dose: 0 mls/hr Documented by: [id number] Admin: 02/02/21 23:56 Dose: 999 mls/hr Documented by: [id number] Dextrose (D5w) 1,000 mls @ 100 mls/hr IV .Q10H NARESH Stop: 02/03/21 15:59 Last Infusion: 02/03/21 11:02 Dose: 0 mls/hr Documented by: [id number] Admin: 02/03/21 06:32 Dose: 100 mls/hr Documented by: [id number] Desmopressin Acetate 1 mcg/ (Sodium Chloride) 50.25 mls @ 100 mls/hr IV Q6H NARESH Stop: 03/05/21 07:59 Last Infusion: 02/03/21 09:33 Dose: 0 mls/hr Documented by: [id number] Admin: 02/03/21 09:02 Dose: 100 mls/hr Documented by: [id number] Metoprolol Succinate (Metoprolol Succ 25mg Ext Rel Tab) 25 mg PO DAILY NARESH Stop: 03/05/21 08:59 Last Admin: 02/05/21 08:49 Dose: 25 mg Documented by: [id number] Admin: 02/04/21 08:49 Dose: 25 mg Documented by: [id number] Admin: 02/03/21 08:52 Dose: 25 mg Documented by: [id number] Pantoprazole Sodium (Pantoprazole 40 Mg Tab) 40 mg PO DAILY NARESH Stop: 03/05/21 08:59 Last Admin: 02/05/21 08:50 Dose: 40 mg Documented by: [id number] Admin: 02/04/21 08:49 Dose: 40 mg Documented by: [id number] Admin: 02/03/21 08:53 Dose: 40 mg Documented by: [id number] Pramipexole Dihydrochloride (Pramipexole Dihydrochlo 0.25 Mg Tab) 0.125 mg PO DAILY NARESH Stop: 03/05/21 08:59 Last Admin: 02/05/21 08:50 Dose: 0.125 mg Documented by: [id number] Admin: 02/04/21 08:48 Dose: 0.125 mg Documented by: [id number] Admin: 02/03/21 08:52 Dose: 0.125 mg Documented by: [id number] Sodium Chloride (Sodium Chloride 1 Gm Tablet) 1 gm PO DAILY NARESH Stop: 03/06/21 11:29 Last Admin: 02/05/21 08:50 Dose: 1 gm Documented by: [id number] Admin: 02/04/21 11:34 Dose: 1 gm Documented by: [id number] Trazodone HCl (Trazodone Hcl 50 Mg Tab) 25 mg PO HS PRN PRN Reason: insomnia Stop: 03/05/21 04:27 Last Admin: 02/04/21 21:53 Dose: 25 mg Documented by: [id number] Admin: 02/03/21 20:43 Dose: 25 mg Documented by: [id number] Vitamin D (Cholecalciferol 1,000 Units 25 Mcg Tab) 5,000 units PO QAM NARESH Stop: 03/05/21 08:59 Last Admin: 02/05/21 08:46 Dose: 5,000 units Documented by: [id number] Admin: 02/04/21 08:48 Dose: 5,000 units Documented by: [id number] Admin: 02/03/21 08:51 Dose: 5,000 units Documented by: [id number] Discharge Plan Visit Data Chief Complaint: Leg Weakness, Bilateral Stated Complaint: WEAKNESS, LEG PAIN ED Provider: Lamont Fagan Discharge Problem: Hyponatremia, Altered mental status Patient Disposition: Admitted As Inpatient Discharge Instructions Interventions: ED Discharge Assessment Last Done: 02/03/21 03:40 Discharge Problem: Altered mental status Qualifiers: Altered mental status type: unspecified Qualified Code(s): R41.82 - Altered mental status, unspecified
== END 2021-02-05 14:27 | disposition home health service (06) | DRG 641 ==
LOC: ED 21:45 → 2E 02-03 02:27 → SUATTDRO 02-03 02:27 → 2E 02-03 03:40 → 3N 02-04 18:47

== ENCOUNTER 2021-04-20 10:23 | Observation (INO) ==
[2021-04-20] MEDS ORDERED: TXA 10% Non-IV Routes 100 MG/ML VIAL TOP ONE (11:59)
[2021-04-20] MEDS ORDERED: LIDOCAINE 4% INH SOLN 4 ML BTL NAE ONE (11:59)
[2021-04-20] MEDS ORDERED: OXYMETAZOLINE 0.05% 30 ML BTL NAE ONE (11:59)
[2021-04-20] MEDS ORDERED: ONDANSETRON INJ 2 MG/ML 2 ML VIAL IV STA (11:59)
[2021-04-20 12:32] LABS: Basophils # (auto) 0.03 K/uL (0-0.2); Basophils % (auto) 0.5 %; Eosinophils # (auto) 0.03 K/uL (0-0.5); Eosinophils % (auto) 0.5 %; Hematocrit (blood only) 33.3 % (37-47); Hemoglobin 11.1 g/dL (12.0-16.0); Lymphocytes % (auto) 21.2 %; Mean Corpuscular Hemoglobin 30.2 pg (25-34); Mean Corpuscular Hgb Conc 33.3 g/dL (32-36); Mean Corpuscular Volume 90.5 fL (80-100); Mean Platelet Volume 9.7 fL (7.4-10.4); Monocytes # (auto) 0.56 K/uL (0.11-0.59); Monocytes % (auto) 9.9 %; Neutrophils # (auto) 3.84 K/uL (1.4-6.5); Neutrophils % (auto) 67.9 %; Platelet Count 232 K/uL (130-400); Red Blood Count 3.68 M/uL (4.2-5.4); White Blood Count 5.66 K/uL (4.8-10.8)
[2021-04-20 12:57] LABS: Albumin Globulin Ratio 0.6 (0.9-2); Albumin Level 2.4 gm/dl (3.4-5.0); BUN Creatinine Ratio 16.7 (10-20); Bilirubin,Total 1.1 mg/dl (0.2-1); Calcium 8.8 mg/dl (8.5-10.1); Creatinine Clr Calc Pharmacy 42.3 ml/min; Est GFR (African American) 78.8 ml/min; Globulin 3.8 gm/dl (2.5-4.0); Potassium 3.5 mmol/L (3.5-5.1); Total Protein 6.2 gm/dl (6.4-8.2)
[2021-04-20] MEDS ORDERED: HYDROmorphone INJ 0.5 MG/0.5 ML SYR IV PRN (13:58)
[2021-04-20] MEDS ORDERED: ACETAMINOPHEN 1,000 MG/100 ML VIAL IV STA (13:58)
[2021-04-20] MEDS ORDERED: cefTRIAXone SODIUM 2,000 MG/70 ML BAG IV STA (14:05)
--- NOTE | 2021-04-20 14:48 | History & Physical Report ---
Date of Service April 20, 2021 Assessment & Plan (1) Epistaxis: Plan: Epistaxis- Admit to medical surgical floor Hold apixaban Ceftriaxone 1 g IV daily Repeat laboratories in a.m. Consult placed to ENT Dr. Renteria (2) Chronic anticoagulation: Plan: Holding apixaban (3) HFrEF (heart failure with reduced ejection fraction): Plan: Hold bumetanide and potassium chloride D5 normal saline + KCl 20 mEq at 80 mils per hour (4) Paroxysmal atrial fibrillation: Plan: Holding anticoagulation with apixaban due to epistaxis Continue amiodarone, metoprolol succinate (5) COPD exacerbation: Plan: Continue usual inhalers Have DuoNebs available as needed (6) Chronic reflux esophagitis: Plan: Continue omeprazole/pantoprazole famotidine 20 mg IV every 12 hours (7) Dyslipidemia: Plan: Continue to lovastatin 40 mg daily (8) Hypertension: History of Present Illness Chief Complaint: The patient presents to the emergency department with persistent nosebleed that began earlier today today Primary Care Provider: Marley Bates MD The patient is a 75-year-old female with past medical history including vitamin D deficiency paroxysmal atrial fibrillation on Eliquis, status post fem tib bypass, HFrEF, oral candidiasis, COPD exacerbation, acute blood loss anemia, ischemic ulcer right foot, osteomyelitis, sacroiliitis, hypertension, dyslipidemia, depression, and chronic reflux esophagitis. She presents to the emergency department with epistaxis. Attempts to control bleeding by the ED were only partially successful, and plan is for ENT Dr. Renteria to assess patient later in the day. Her last dose of Eliquis was at 430 this a.m. Allergies Allergy/AdvReac Type Severity Reaction Status Date / Time Penicillins Allergy Intermediate Hives Verified 04/20/21 12:25 Home Medications Medication Instructions Recorded Confirmed Type cholecalciferol (vitamin D3) 25 5,000 unit PO QAM cap 08/11/20 04/20/21 History mcg (1,000 unit) capsule atorvastatin 40 mg tablet 40 mg PO QAM 09/26/20 04/20/21 History multivitamin with minerals 1 tab PO QAM 09/26/20 04/20/21 History calcium carbonate 500 mg (1,250 1 tab PO DAILY 12/08/20 04/20/21 History mg)-vitamin D3 200 unit tablet (Calcium 500 + D) amiodarone 200 mg tablet 200 mg PO DAILY 01/05/21 04/20/21 History diclofenac sodium 1 % topical gel 2 g TOPICAL QID PRN #2 g 02/19/21 04/20/21 Rx ipratropium 20 mcg-albuterol 100 1 puff INHALATION Q6H PRN 02/19/21 04/20/21 History mcg/actuation mist for inhalation (Combivent Respimat) metoprolol succinate 25 mg 12.5 mg PO BID #30 tab 02/19/21 04/20/21 Rx tablet,extended release 24 hr nystatin 100,000 unit/gram topical 1 applic TOPICAL DAILY PRN 02/19/21 04/20/21 History powder apixaban 5 mg tablet (Eliquis) 5 mg PO BID #60 tab 02/22/21 04/20/21 Rx gabapentin 400 mg capsule 400 mg PO TID #90 cap 03/05/21 04/20/21 Rx magnesium oxide 400 mg PO DAILY #30 tab 03/05/21 04/20/21 Rx pramipexole 0.125 mg tablet 0.125 mg PO DAILY #30 tab 03/05/21 04/20/21 Rx omeprazole 40 mg capsule,delayed 40 mg PO DAILY #30 cap 03/11/21 04/20/21 Rx release potassium chloride 20 mEq 20 meq PO DAILY #30 tab 03/17/21 04/20/21 Rx tablet,extended release bumetanide 1 mg tablet 1 mg PO DAILY PRN #30 tab 04/01/21 04/20/21 Rx Past Med/Surg History Medical History (Updated 04/20/21 @ 14:42 by Leobardo Matias MD) Acute kidney injury Anemia chronic, baseline hgb 10's Arthritis Chronic reflux esophagitis controlled Depression Dyslipidemia Hypercalcemia Hypertension Hypokalemia LBBB (left bundle branch block) dating back to 08/2020 [place] EKG On apixaban therapy Osteopenia Peripheral arterial disease Bilateral Common Iliac Artery Stenting(Bilateral), Bilateral Femoral Artery Endarterectomy with Bovine Patch (08/2020) Peripheral neuropathy Pulmonary nodule per records, pt denies RLS (restless legs syndrome) Sleep apnea no device Vitamin D deficiency Surgical History H/O endarterectomy Bilateral Common Iliac Artery Stenting(Bilateral), Bilateral Femoral Artery Endarterectomy with Bovine Patch: 08/26/20: Grade 2 view, MAC 3.0, ETT 7.0 at [facility] History of appendectomy History of carpal tunnel release of both wrists History of colonoscopy History of tooth extraction Hx of hysterectomy S/P femoral-tibial bypass Family History Other No family history of adverse response to anesthesia Social History Smoking Status: Current every day smoker Tobacco Type: Cigarettes Cigarettes Per Day: 5; Second Hand Exposure: Yes; Hx Alcohol Use: Yes Alcohol type: beer Alcohol Intake Frequency Comment: Typically 3-6 beers each day Hx Substance Use: No Preferred Language: Sinhala Communication Ability: Effective Visual Impairment: No Limitations Hearing Ability: Hard of Hearing Criminal Attorney Required: No Beliefs That Will Affect Care: None marital status: Current Living Situation: Spouse Current Living Situation Comment: - Abdulaziz current occupational status: retired How many Children do You have: 1 Feels Safe at Home: Yes Assistive Devices: Cane, Denture - Upper, Denture - Lower and Glasses Review of Systems Review of Systems: The patient denies chest pain, palpitations, shortness of breath, dyspnea on exertion, cough, lower extremity swelling, sore throat, fevers, chills, sweats, weight change, fatigue, nausea, vomiting, diarrhea , constipation, abdominal pain, pelvic pain, blood in urine or stool, dysuria, urinary frequency or urgency, memory loss, loss of consciousness, imbalance, focal or generalized weakness, numbness or tingling in arms or legs, or night sweats. The review of systems is otherwise negative other than for that already noted above, and at least 10 systems have been reviewed. Physical Exam Physical Exam: The patient is awake, alert and oriented 3, appears thin, R hino Rocket extending from nares, large clip on nose, lying in bed and in mild distress. HEENT--PERRL, EOMI, mucous membranes and oropharynx dry. Neck--supple. No JVD. No bruits. Thyroid normal, trachea midline, no adenopathy. Heart--normal S1 and S2. No murmurs, rubs or gallops. Lungs--clear bilaterally, no respiratory distress, no accessory muscle use. Abdomen--normal bowel sounds and soft. Nontender. Nondistended, no hernias or masses, no organomegaly. Extremities--no cyanosis or clubbing. Right lower extremity 1+ pitting edema. Dermatologic--skin is dry Neurologic--cranial nerves II through XII grossly intact. Rheumatologic--normal range of motion. Psychiatric--normal affect. Results & Data Results & Data ([facility]) Vital Signs (Past 12 Hours) Vital Signs Temp Pulse Pulse Resp BP BP Pulse Ox 04/20/21 12:51 98.2 F 74 16 138/81 96 04/20/21 10:51 97.5 F L 63 18 139/73 92 Laboratory Results Laboratory Results WBC 5.66 K/uL (4.8-10.8) 04/20/21 12:20 RBC 3.68 M/uL (4.2-5.4) L 04/20/21 12:20 Hgb 11.1 g/dL (12.0-16.0) L 04/20/21 12:20 Hct 33.3 % (37-47) L 04/20/21 12:20 MCV 90.5 fL (80-100) 04/20/21 12:20 MCH 30.2 pg (25-34) 04/20/21 12:20 MCHC 33.3 g/dL (32-36) 04/20/21 12:20 RDW Std Deviation 56.0 fL (36.4-46.3) H 04/20/21 12:20 RDW Coeff of Janie 17.0 % (11.5-14.5) H 04/20/21 12:20 Plt Count 232 K/uL (130-400) 04/20/21 12:20 MPV 9.7 fL (7.4-10.4) 04/20/21 12:20 Immature Gran % (Auto) 0.0 % 04/20/21 12:20 Neut % (Auto) 67.9 % 04/20/21 12:20 Lymph % (Auto) 21.2 % 04/20/21 12:20 [place] % (Auto) 9.9 % 04/20/21 12:20 Eos % (Auto) 0.5 % 04/20/21 12:20 Baso % (Auto) 0.5 % 04/20/21 12:20 Neut # (Auto) 3.84 K/uL (1.4-6.5) 04/20/21 12:20 Lymph # (Auto) 1.20 K/uL (1.2-3.4) 04/20/21 12:20 [place] # (Auto) 0.56 K/uL (0.11-0.59) 04/20/21 12:20 Eos # (Auto) 0.03 K/uL (0-0.5) 04/20/21 12:20 Baso # (Auto) 0.03 K/uL (0-0.2) 04/20/21 12:20 Immature Gran # (Auto) 0.00 K/uL (0.00-0.02) 04/20/21 12:20 Sodium 137 mmol/L (136-145) 04/20/21 12:20 Potassium 3.5 mmol/L (3.5-5.1) 04/20/21 12:20 Chloride 105 mmol/L (98-107) 04/20/21 12:20 Carbon Dioxide 21 mmol/L (21-32) 04/20/21 12:20 Anion Gap 11.0 (3-11) 04/20/21 12:20 BUN 14 mg/dl (7-18) 04/20/21 12:20 Creatinine 0.85 mg/dl (0.6-1.2) 04/20/21 12:20 Est Cr Clr Drug Dosing 42.3 ml/min 04/20/21 12:20 Est GFR ( Amer) 78.8 ml/min 04/20/21 12:20 Est GFR (Non-Af Amer) 68.0 ml/min 04/20/21 12:20 BUN/Creatinine Ratio 16.7 (10-20) 04/20/21 12:20 Glucose 72 mg/dl (70-99) 04/20/21 12:20 Calcium 8.8 mg/dl (8.5-10.1) 04/20/21 12:20 Total Bilirubin 1.1 mg/dl (0.2-1) H 04/20/21 12:20 AST 73 U/L (15-37) H 04/20/21 12:20 ALT 42 U/L (12-78) 04/20/21 12:20 Alkaline Phosphatase 118 U/L (45-117) H 04/20/21 12:20 Total Protein 6.2 gm/dl (6.4-8.2) L 04/20/21 12:20 Albumin 2.4 gm/dl (3.4-5.0) L 04/20/21 12:20 Globulin 3.8 gm/dl (2.5-4.0) 04/20/21 12:20 Albumin/Globulin Ratio 0.6 (0.9-2) L 04/20/21 12:20 Specimen Hemolysis 04/20/21 12:20 COVID-19 Eval Order Covid19 at [facility] 04/20/21 13:07 SARS-CoV-2 (PCR) NEGATIVE (Negative) 04/20/21 13:07 Code Status & VTE Plan Code Status Full code VTE Prophylaxis Plan VTE Prophylaxis will be ordered: Yes PG Care Time/CCT Total # of Minutes Spent Total Time Spent with Patient: Total time spent is greater than 50% in coordination of care (as documented) at patient's floor/unit and/or counseling patient: Coding Level of Care Code INT OBSERVATION CARE 70M LVL 3 Diagnoses Epistaxis R04.0 Paroxysmal atrial fibrillation I48.0 COPD exacerbation J44.1 Chronic reflux esophagitis K21.0 Dyslipidemia E78.5 Hypertension I10 Chronic anticoagulation Z79.01 HFrEF (heart failure with reduced ejection fraction) I50.20
[2021-04-20] MEDS ORDERED: IPRATROPIUM BROMIDE/ALBUTEROL respimat INH INH PRN (17:04)
[2021-04-20] MEDS ORDERED: Albuterol HFA 8 GM Inhaler (Combivent Respimat P&T Subs) INH PRN (17:11)
[2021-04-20] MEDS ORDERED: Ipratropium HFA Inhaler (Combivent Respimat P&T Subs) INH PRN (17:12)
--- NOTE | 2021-04-20 17:16 | ENT Consultation ---
Date of Consultation April 20, 2021 Assessment & Plan (1) Epistaxis: Balloon packing in left nares. Minimal ooze left nares which should stop. Eliquis held. I did discuss endoscopic cautery with her if there is continued bleeding. (2) Chronic anticoagulation: (3) Anemia: History of Present Illness Reason for Consultation: Epistaxis Attending Physician: Leobardo Matias MD History of Present Illness This 75-year-old lady who is on Eliquis for paroxysmal atrial fibrillation developed acute onset of epistaxis from the left nares this a.m. requiring packing in the emergency room. Described by Dr. Fagan as extensive amount of bleeding. Allergies Allergy/AdvReac Type Severity Reaction Status Date / Time Penicillins Allergy Intermediate Hives Verified 04/20/21 12:25 Home Medications Medication Instructions Recorded Confirmed Type cholecalciferol (vitamin D3) 25 5,000 unit PO QAM cap 08/11/20 04/20/21 History mcg (1,000 unit) capsule atorvastatin 40 mg tablet 40 mg PO QAM 09/26/20 04/20/21 History multivitamin with minerals 1 tab PO QAM 09/26/20 04/20/21 History calcium carbonate 500 mg (1,250 1 tab PO DAILY 12/08/20 04/20/21 History mg)-vitamin D3 200 unit tablet (Calcium 500 + D) amiodarone 200 mg tablet 200 mg PO DAILY 01/05/21 04/20/21 History diclofenac sodium 1 % topical gel 2 g TOPICAL QID PRN #2 g 02/19/21 04/20/21 Rx ipratropium 20 mcg-albuterol 100 1 puff INHALATION Q6H PRN 02/19/21 04/20/21 History mcg/actuation mist for inhalation (Combivent Respimat) metoprolol succinate 25 mg 12.5 mg PO BID #30 tab 02/19/21 04/20/21 Rx tablet,extended release 24 hr nystatin 100,000 unit/gram topical 1 applic TOPICAL DAILY PRN 02/19/21 04/20/21 History powder apixaban 5 mg tablet (Eliquis) 5 mg PO BID #60 tab 02/22/21 04/20/21 Rx gabapentin 400 mg capsule 400 mg PO TID #90 cap 03/05/21 04/20/21 Rx magnesium oxide 400 mg PO DAILY #30 tab 03/05/21 04/20/21 Rx pramipexole 0.125 mg tablet 0.125 mg PO DAILY #30 tab 03/05/21 04/20/21 Rx omeprazole 40 mg capsule,delayed 40 mg PO DAILY #30 cap 03/11/21 04/20/21 Rx release potassium chloride 20 mEq 20 meq PO DAILY #30 tab 03/17/21 04/20/21 Rx tablet,extended release bumetanide 1 mg tablet 1 mg PO DAILY PRN #30 tab 04/01/21 04/20/21 Rx Patient History Medical History Acute kidney injury Anemia chronic, baseline hgb 10's Arthritis Chronic reflux esophagitis controlled Depression Dyslipidemia Hypercalcemia Hypertension Hypokalemia LBBB (left bundle branch block) dating back to 08/2020 [place] EKG On apixaban therapy Osteopenia Peripheral arterial disease Bilateral Common Iliac Artery Stenting(Bilateral), Bilateral Femoral Artery Endarterectomy with Bovine Patch (08/2020) Peripheral neuropathy Pulmonary nodule per records, pt denies RLS (restless legs syndrome) Sleep apnea no device Vitamin D deficiency Surgical History H/O endarterectomy Bilateral Common Iliac Artery Stenting(Bilateral), Bilateral Femoral Artery Endarterectomy with Bovine Patch: 08/26/20: Grade 2 view, MAC 3.0, ETT 7.0 at [facility] History of appendectomy History of carpal tunnel release of both wrists History of colonoscopy History of tooth extraction Hx of hysterectomy S/P femoral-tibial bypass Family History Other No family history of adverse response to anesthesia Social History Smoking Status: Current every day smoker Tobacco Type: Cigarettes Cigarettes Per Day: 5; Second Hand Exposure: Yes; Hx Alcohol Use: Yes Alcohol type: beer Alcohol Intake Frequency Comment: Typically 3-6 beers each day Hx Substance Use: No Preferred Language: Bangladeshi Communication Ability: Effective Visual Impairment: No Limitations Hearing Ability: Hard of Hearing Commercial Crabber Required: No Beliefs That Will Affect Care: None marital status: Current Living Situation: Spouse Current Living Situation Comment: - Abdulaziz current occupational status: retired How many Children do You have: 1 Feels Safe at Home: Yes Assistive Devices: Cane, Denture - Upper, Denture - Lower and Glasses Physical Exam Constitutional: WD/WN, vitals as above + ill appearing and + cachectic Eyes: PERRL, conjunctivae normal, anicteric sclerae ENMT: Nose: + epistaxis (Balloon packing in left nostril with clamp on, minimal amount of bright red) Neck: trachea midline, no thyromegaly Respiratory: normal respiratory effort, lungs clear to auscultation Results & Data ([facility]) Vital Signs (Past 12 Hours) Vital Signs Temp Pulse Pulse Resp BP BP Pulse Ox 04/20/21 16:40 36.9 C 74 17 155/75 H 92 04/20/21 16:00 36.9 C 76 16 134/78 96 04/20/21 12:51 36.8 C 74 16 138/81 96 04/20/21 10:51 36.4 C L 63 18 139/73 92
[2021-04-20] MEDS: D5NSS + 20MEQ KCL 20 MEQ/1,000 ML BAG IV SCH (18:47)
[2021-04-20] MEDS: METOPROLOL SUCC 25MG EXT REL TAB PO SCH (20:33)
[2021-04-20] MEDS: GABAPENTIN 400 MG CAP PO SCH (20:36)
[2021-04-20] MEDS ORDERED: traZODone HCL 50 MG TAB PO ONE (21:03)
[2021-04-21] MEDS ORDERED: PRAMIPEXOLE DIHYDROCHLO 0.25 MG TAB PO SCH ×2 (01:00→09:00)
--- NOTE | 2021-04-21 07:45 | Ears,Nose,Throat Progress Note ---
Date of Service April 21, 2021 Assessment & Plan (1) Epistaxis: Plan: Would hold Eliquis until removal of nasal packing on Monday. Removal of packing can be performed in the office by me on Monday. Admission and Anticipated Discharge Date Admission Date: April 20, 2021 Subjective This 75-year-old lady had acute onset of epistaxis yesterday. Packed in the emergency room. Some oozing yesterday p.m., has stopped. No further bleeding. Physical Exam Constitutional: WD/WN, vitals as above Eyes: PERRL, conjunctivae normal, anicteric sclerae ENMT: Nose: + epistaxis (Balloon packing left nares, no further bleeding) Results & Data ([facility]) Vital Signs (Past 12 Hours) Vital Signs Temp Pulse Resp BP Pulse Ox 04/21/21 07:00 36.4 C L 68 20 138/86 99 04/20/21 22:23 36.3 C L 61 18 157/76 H 93 04/20/21 20:30 64 142/68 H
[2021-04-21 07:57] LABS: Basophils # (auto) 0.02 K/uL (0-0.2); Basophils % (auto) 0.4 %; Eosinophils # (auto) 0.07 K/uL (0-0.5); Eosinophils % (auto) 1.4 %; Hematocrit (blood only) 27.3 % (37-47); Immature Granulocytes # (auto) 0.01 K/uL (0.00-0.02); Immature Granulocytes % (auto) 0.2 %; Lymphocytes # (auto) 1.21 K/uL (1.2-3.4); Lymphocytes % (auto) 24.6 %; Mean Corpuscular Hemoglobin 30.2 pg (25-34); Mean Corpuscular Volume 91.6 fL (80-100); Mean Platelet Volume 9.7 fL (7.4-10.4); Monocytes # (auto) 0.63 K/uL (0.11-0.59); Monocytes % (auto) 12.8 %; Neutrophils # (auto) 2.97 K/uL (1.4-6.5); Neutrophils % (auto) 60.6 %; Platelet Count 198 K/uL (130-400); RDW Coefficient of Variation 17.2 % (11.5-14.5); RDW Standard Deviation 56.8 fL (36.4-46.3); Red Blood Count 2.98 M/uL (4.2-5.4); White Blood Count 4.91 K/uL (4.8-10.8)
[2021-04-21] MEDS: D5NSS + 20MEQ KCL 20 MEQ/1,000 ML BAG IV SCH ×2 (08:11→18:24)
[2021-04-21] MEDS: GABAPENTIN 400 MG CAP PO SCH ×2 (08:12→15:26)
[2021-04-21] MEDS: METOPROLOL SUCC 25MG EXT REL TAB PO SCH (08:12)
[2021-04-21 08:27] LABS: Albumin Level 2.4 gm/dl (3.4-5.0); BUN Creatinine Ratio 24.3 (10-20); Calcium 8.1 mg/dl (8.5-10.1); Est GFR (African American) 64.7 ml/min; Est GFR (Non-African American) 55.8 ml/min; Magnesium 1.2 mg/dl (1.8-2.4); Potassium 3.4 mmol/L (3.5-5.1)
[2021-04-21 08:32] LABS: Albumin Globulin Ratio 0.7 (0.9-2); Bilirubin,Total 0.6 mg/dl (0.2-1); Globulin 3.4 gm/dl (2.5-4.0); Total Protein 5.8 gm/dl (6.4-8.2)
[2021-04-21] MEDS ORDERED: POTASSIUM CHLORIDE CRTAB 20 MEQ TABCR PO STA (08:51)
[2021-04-21] MEDS ORDERED: POTASSIUM CHLORIDE CRTAB 20 MEQ TABCR PO SCH (09:00)
[2021-04-21] MEDS ORDERED: CHOLECALCIFEROL 1,000 UNITS 25 MCG TAB PO SCH (09:00)
[2021-04-21] MEDS ORDERED: ATORVASTATIN 40 MG TAB PO SCH (09:00)
[2021-04-21] MEDS ORDERED: AMIODARONE 200 MG TAB PO SCH (09:00)
--- NOTE | 2021-04-21 09:32 | Discharge Summary ---
Date of Service April 21, 2021 Admission HPI Per Admitting Provider The patient is a 75-year-old female with past medical history including vitamin D deficiency paroxysmal atrial fibrillation on Eliquis, status post fem tib bypass, HFrEF, oral candidiasis, COPD exacerbation, acute blood loss anemia, ischemic ulcer right foot, osteomyelitis, sacroiliitis, hypertension, dyslipidemia, depression, and chronic reflux esophagitis. She presents to the emergency department with epistaxis. Attempts to control bleeding by the ED were only partially successful, and plan is for ENT Dr. Renteria to assess patient later in the day. Her last dose of Eliquis was at 430 this a.m. Admission Exam Per Admitting Provider The patient is awake, alert and oriented 3, appears thin, Rhino Rocket extending from nares, large clip on nose, lying in bed and in mild distress. HEENT--PERRL, EOMI, mucous membranes and oropharynx dry. Neck--supple. No JVD. No bruits. Thyroid normal, trachea midline, no adenopathy. Heart--normal S1 and S2. No murmurs, rubs or gallops. Lungs--clear bilaterally, no respiratory distress, no accessory muscle use. Abdomen--normal bowel sounds and soft. Nontender. Nondistended, no hernias or masses, no organomegaly. Extremities--no cyanosis or clubbing. Right lower extremity 1+ pitting edema. Dermatologic--skin is dry Neurologic--cranial nerves II through XII grossly intact. Rheumatologic--normal range of motion. Psychiatric--normal affect. Principal Diagnosis epistaxis Discharge Exam Constitutional WD/WN, vitals as above Eyes PERRL, conjunctivae normal, anicteric sclerae ENMT Nose: + external nose abnormality (+ epistaxis (Balloon packing left nares, no further bleeding)) Respiratory normal respiratory effort, lungs clear to auscultation Cardiovascular RRR, no murmur, no edema Skin no rashes, warm and dry Psychiatric A+Ox3, euthymic affect Discharge Data Allergies Allergy/AdvReac Type Severity Reaction Status Date / Time Penicillins Allergy Intermediate Hives Verified 04/20/21 12:25 Consultations 04/20/21 14:01 ED Decision to Admit Stat 04/20/21 14:04 Consult Otolaryngology (Head and Neck) Routine Hospital Course (1) Epistaxis: 75-year-old female with past medical history including vitamin D deficiency paroxysmal atrial fibrillation on Eliquis, status post fem tib bypass, HFrEF, oral candidiasis, COPD exacerbation, acute blood loss anemia, ischemic ulcer right foot, osteomyelitis, sacroiliitis, hypertension, dyslipidemia, depression, and chronic reflux esophagitis admitted for epistaxis requiring nasal packing. Epistaxis: Presented with heavy nosebleed with Hgb 11.1 -> 9.0 this AM. Nasal packing placed by Dr. Renteria last night, and patient has not had any bleeding since. Will have packing removed Monday. Eliquis held, and will continue to hold at least until outpatient visit with Dr. Renteria on Monday. Did discuss with patient that her ibuprofen/NSAID use while on Eliquis likely contributed to her bleeding risk. Should have CBC in 1 week, sooner if any complaints suggestive of blood loss anemia. AFib: History of, typically on Eliquis, amiodarone, metoprolol. Holding Eliquis as above given epistaxis. Does have ChadsVASc score that would indicate use of continued anticoagulants, this should be followed up with PCP/Cardiology. Chronic Medical Problems: HFrEF - Continue Bumex, metoprolol, low salt diet COPD - Continue ipratropium albuterol inhaler Arthritis - did advise patient that her ibuprofen should be transitioned to Tylenol instead. She was reticent to do this as she said that "tylenol does not work for her". Did offer voltaren gel as an option Total Time Total Time Spent Total Time Spent (In Minutes): 30 Discharge Plan Discharge Items Patient Disposition: Home - Home Health Services Reason For Visit: EPISTAXIS Discharge Diagnosis: extensive nosebleed Activity: Per Instructions section Non-emergency contact: Primary Care Provider Call non-emergency contact if: your symptoms worsen Follow-up/Referrals: Marley Bates MD [Primary Care Provider] - 04/23/21 11:30 am Ivy Renteria MD [Physician] - 04/23/21 1:00 pm Diet: Low Sodium (2gm) Addtl Attending Provider Instructions: You were admitted to the hospital for observation after having nasal packing placed for an extensive nosebleed. Dr. Renteria saw you and advised holding off on taking your Eliquis, at least until he sees you to remove your nasal packing on Monday. You should discuss your Eliquis with your primary care provider and/or Guard Supervisor, to determine if you should continue this medication after the packing is removed. This medication helps decrease risk of strokes in people with atrial fibrillation, so you may be advised to resume it at some point. If you have further bleeding that does not stop please return to the ER for evaluation. You should try to stay away from NSAIDs such as ibuprofen or Aleve when you take Eliquis, as this puts you at increased risk of bleeding. You will go on oral Keflex (one pill every 6 hours), while you have the nasal packing. Your potassium level was low, and so we increased your home potassium supplement dosing. Please see the medication instructions below. We also increased your magnesium supplement to twice daily. Dr. Renteria's office is on [facility], [place] [address]. Pending Studies at Discharge: No Stand-Alone Forms: My [facility] [employer], Smoking Cessation Medications and DC Order Prescriptions: New potassium chloride [Klor-Con M20] 20 mEq Tablet,Er Particles/Crystals 40 meq PO DAILY Qty: 30 RF: 0 cephalexin 500 mg capsule 500 mg PO Q6H 5 Days Qty: 20 RF: 0 Continued gabapentin 400 mg capsule 400 mg PO TID Qty: 90 RF: 5 pramipexole 0.125 mg tablet 0.125 mg PO DAILY Qty: 30 RF: 5 omeprazole 40 mg capsule,delayed release(DR/EC) 40 mg PO DAILY Qty: 30 RF: 2 amiodarone 200 mg tablet 200 mg PO DAILY RF: 0 nystatin 100,000 unit/gram powder 1 applic topical DAILY PRN (Reason: Skin Irritation) RF: 0 Combivent Respimat 20-100 mcg/actuation mist 1 puff inhalation Q6H PRN (Reason: Shortness Of Breath Or Wheezing) RF: 0 diclofenac sodium 1 % gel 2 g topical QID PRN (Reason: pain) Qty: 2 RF: 0 metoprolol succinate 25 mg tablet extended release 24 hr 12.5 mg PO BID Qty: 30 RF: 2 calcium carbonate-vitamin D3 [Calcium 500 + D] 500 mg(1,250mg) -200 unit tablet 1 tab PO DAILY RF: 0 bumetanide 1 mg tablet 1 mg PO DAILY PRN (Reason: weight gain, edema, shortness of breath) Qty: 30 RF: 0 Hold Instructions: JASMYNE cholecalciferol (vitamin D3) 25 mcg (1,000 unit) capsule 5,000 unit PO QAM RF: 0 multivitamin with minerals Tablet 1 tab PO QAM RF: 0 atorvastatin 40 mg tablet 40 mg PO QAM RF: 0 Changed magnesium oxide 400 mg magnesium tablet 400 mg PO BID Qty: 30 RF: 5 Discontinued Eliquis 5 mg tablet 5 mg PO BID Qty: 60 RF: 5 potassium chloride 20 mEq tablet extended release 20 meq PO DAILY Qty: 30 RF: 2 Discharge Orders: Discharge Order (Routine); Ordered 04/21/21 Ordered By: Edilia Davis Admission Data Admit Date/Time: 04/20/21 14:34 Attending Provider: Maverick Chaves Admit Provider: Leobardo Matias Primary Care Provider: Marley Bates Other Providers: Leobardo Matias ; Ivy Renteria ; [place] Other Interventions: Discharge Summary Assessment (RN) Last Done: 04/21/21 12:58 Supervising Physician Co-Signing Physician Notes Patient seen and examined independently of PGY-3 Dr. Davis. Agree with history, exam findings, assessment and plan of care. In brief, Lillian is a 75 year old female admitted with epistaxis. Balloon packing to the left nare was done by Dr. Renteria, ENT. Holding Eliquis. Was getting Ceftriaxone for prophylaxis with the packing in place. Switched to keflex. Hemoglobin 9 on discharge. Follow up with Dr. Renteria on Monday for packing removal. I personally spent 25 minutes discharge planning for this patient.
[2021-04-21] MEDS: MAGNESIUM SULFATE / D5W 1 GM/100 ML BAG IV SCH ×4 (09:48→15:59)
[2021-04-21] MEDS ORDERED: cefTRIAXone SODIUM 1,000 MG in DEXTROSE 5% 50 ML IV SCH (14:00)
[2021-04-21 18:06] VITALS: BP 99/65; PULSE 56; TEMP 97.3; O2SAT 93
[2021-04-22] MEDS ORDERED: POTASSIUM CHLORIDE CRTAB 20 MEQ TABCR PO SCH (09:00)
--- NOTE | 2021-04-23 20:35 | Emergency Department Note ---
Impression & Plan Epistaxis, Anemia, Chronic anticoagulation ED Provider Note NAME: DINORAH BUSTAMANTE AGE: 75 SEX: F : 1945 ARRIVES VIA: Ambulance INFORMANT: Patient, ED PROVIDER(S): Lamont Fagan MD CHIEF COMPLAINT: epistaxis HPI: Records review reveals that this patient was in the emergency department on February 06 for hyponatremia and generalized weakness. This is a 75-year-old female who presents emergency department complaining of nosebleed that began this morning. The patient has been unable to get the bleeding under control. The patient is on anticoagulation for atrial fibrillation. She has tried applying t issues to the nose however has been unable to get the bleeding under control. Upon arrival to the emergency department the patient patient is vomiting at least a cupful of blood. She was not given anything for the bleeding or the vomiting prior to arrival. She reports nothing makes the bleeding better or worse. ROS: See above HPI for pertinent positives & negatives. A total of 10 systems reviewed and were otherwise negative. PAST MEDICAL HISTORY: See Below PAST SURGICAL HISTORY: See Below FAMILY HISTORY: See Below SOCIAL HISTORY: See Below HOME MEDICATIONS: See Below ALLERGIES: See Below VITALS: See Below PHYSICAL EXAMINATION: VITAL SIGNS - Vital signs and nursing notes were reviewed. GENERAL - 75-year-old female appearing stated age who is in moderate distress. Communicates well with provider and answers questions appropriately. bleeding from left nares, actively vomiting blood SKIN - Without rashes. HEAD - NC/AT. EYES - PERRL with EOMI bilaterally. Sclera anicteric. Palpebral conjunctiva pink and moist with no injection noted. EARS - No deformities of external structures noted on gross examination bilaterally. NOSE - Midline and without cyanosis. No epistaxis or purulent drainage noted. bleeding from left nares MOUTH/OROPHARYNX - Without perioral cyanosis. Buccal mucosa pink and moist and without leukoplakia. Tongue midline with equal elevation of palate bilaterally. No tonsillar hypertrophy, erythema, or exudates noted. NECK - Neck with FROM. Supple to palpation. LUNGS - Chest wall symmetric without accessory muscle use, intercostals retractions, or central cyanosis. Normal vesicular breath sounds CTA B/L. No wheezes, rales, or rhonchi appreciated. CARDIAC - RRR with S1/S2. No murmur, rubs, or gallops appreciated. ABDOMEN - Abdominal contour without pulsations or visible masses. BS normoactive all four quadrants. No tenderness, palpable masses, hepatosplenomegaly, or ascites noted. EXTREMITIES - No clubbing or peripheral cyanosis. No pretibial edema present. +3/5 radial, posterior tibial, and dorsalis pedis pulses palpated throughout. +5/5 strength noted in UE/LE bilaterally. NEUROLOGIC - Cranial nerves II through XII grossly intact. Sensory intact to light touch throughout. Patellar reflexes +2/4. PSYCH - A&Ox3 and cooperates fully with examiner. Pt is very pleasant and interacts well with examiner. MEDICAL DECISION MAKING: Patient was seen and evaluated as above in room C5. Review was performed of nursing notes and vital signs. I did review pertinent previous visits and patient history. After obtaining a thorough history and physical examination the above work up was performed. This 75-year-old female who presents emergency department complaining of severe bleeding from her left nares. Patient was given TXA as well as Afrin and lidocaine and a balloon was placed as below. Despite the balloon the patient continued to bleed around the balloon she was given additional clamping and started on Augmentin. I did discuss the case with the hospitalist service as well as ear nose and throat physician on-call. Patient was given pain medication here in the emergency department. Hemoglobin was noted to be 9.0. While in the department, I personally reevaluated the patient several times and each time the patient was found to be resting comfortably. The patient was educated upon management, educated upon todays findings/results, educated upon importance of follow up from today's visit, educated upon symptoms in which to return, had questions answered prior to discharge, verbalized understanding, and was discharged home in good condition. An order was placed for continuous cardiac monitoring. The monitor shows a rate of 56 with A fib rhythm. The patient was evaluated during a period of high volume and high acuity during the global COVID-19 pandemic, and that diagnosis was suspected/considered upon their initial presentation. Their evaluation, treatment and testing was c onsistent with current guidelines for patients who present with complaints or symptoms that may be related to COVID-19. Patient was seen while provider was wearing PPE. Triage Nursing notes reviewed. Prior medical records reviewed Vital Signs: reviewed and remarkable for no significant abnormalities Differential diagnosis: Infection, dehydration, metabolic abnormality, hypo/hyperglycemia, electrolyte disturbance, anemia, hypoxia, cardiac sources, intracerebral event, toxicologic, neurologic, as well as other pathologies. ER treatment provided: See below Laboratory studies: As stated above and show below. Imaging studies: See below Consultation(s): ENT, Internal Medicine ED COURSE: Procedures: Anterior/Posterior Nasal Packing Indication: epistaxis Verbal consent obtained. Risks and benefits were explained with the usual customary discussion. A time out was taken. Clots were removed with suction. The left naris was prepped with TXA Afrin and lidocaine. A 5.5-cm nasal balloon was placed in a standard fashion. The patient tolerated this well. Hemostasis was achieved. No complications. Past Med/Surg History Medical History Acute kidney injury Anemia chronic, baseline hgb 10's Arthritis Chronic reflux esophagitis controlled Depression Dyslipidemia Hypercalcemia Hypertension Hypokalemia LBBB (left bundle branch block) dating back to 08/2020 [place] EKG On apixaban therapy Osteopenia Peripheral arterial disease Bilateral Common Iliac Artery Stenting(Bilateral), Bilateral Femoral Artery Endarterectomy with Bovine Patch (08/2020) Peripheral neuropathy Pulmonary nodule per records, pt denies RLS (restless legs syndrome) Sleep apnea no device Vitamin D deficiency Surgical History H/O endarterectomy Bilateral Common Iliac Artery Stenting(Bilateral), Bilateral Femoral Artery Endarterectomy with Bovine Patch: 08/26/20: Grade 2 view, MAC 3.0, ETT 7.0 at [facility] History of appendectomy History of carpal tunnel release of both wrists History of colonoscopy History of tooth extraction Hx of hysterectomy S/P femoral-tibial bypass Family History (Updated 04/23/21 @ 13:29 by Patricia Zendejas) Mother Hypertension Father Hypertension Sister Hypertension Allergies Brother Hypertension Grandfather (Maternal) Heart disease Grandmother (Maternal) Heart disease Other No family history of adverse response to anesthesia No family history of bleeding disorder Social History (Updated 04/23/21 @ 13:28 by Patricia Zendejas) Smoking Status: Current every day smoker Tobacco Type: Cigarettes Age Started Using Tobacco: 7; Cigarettes Per Day: 3; Second Hand Exposure: No; Hx Alcohol Use: Yes Alcohol type: beer Alcohol Intake Frequency Comment: Typically 2 beers each day Hx Substance Use: No Preferred Language: Salvadorean Communication Ability: Effective Visual Impairment: No Limitations Hearing Ability: Hard of Hearing Personnel Representative Required: No Beliefs That Will Affect Care: None marital status: Current Living Situation: Spouse Current Living Situation Comment: - Abdulaziz current occupational status: retired How many Children do You have: 1 Feels Safe at Home: Yes Assistive Devices: Glasses and Walker Allergies Allergies Allergy/AdvReac Type Severity Reaction Status Date / Time Penicillins Allergy Intermediate Hives Verified 04/23/21 13:18 Home Meds Home Medications Medication Instructions Recorded Confirmed cholecalciferol (vitamin D3) 25 5,000 unit PO QAM cap 08/11/20 04/23/21 mcg (1,000 unit) capsule multivitamin with minerals 1 tab PO QAM 09/26/20 04/23/21 calcium carbonate 500 mg (1,250 1 tab PO DAILY 12/08/20 04/23/21 mg)-vitamin D3 200 unit tablet (Calcium 500 + D) amiodarone 200 mg tablet 200 mg PO DAILY 01/05/21 04/23/21 ipratropium 20 mcg-albuterol 100 1 puff INHALATION Q6H PRN 02/19/21 04/23/21 mcg/actuation mist for inhalation (Combivent Respimat) nystatin 100,000 unit/gram topical 1 applic TOPICAL DAILY PRN 02/19/21 04/23/21 powder Previous Rx's Medication Instructions Recorded diclofenac sodium 1 % topical gel 2 g TOPICAL QID PRN #2 g 02/19/21 metoprolol succinate 25 mg 12.5 mg PO BID #30 tab 02/19/21 tablet,extended release 24 hr gabapentin 400 mg capsule 400 mg PO TID #90 cap 03/05/21 pramipexole 0.125 mg tablet 0.125 mg PO DAILY #30 tab 03/05/21 omeprazole 40 mg capsule,delayed 40 mg PO DAILY #30 cap 03/11/21 release bumetanide 1 mg tablet 1 mg PO DAILY PRN #30 tab 04/01/21 cephalexin 500 mg capsule 500 mg PO Q6H 5 Days #20 cap 04/21/21 magnesium oxide 400 mg PO BID #30 tab 04/21/21 potassium chloride 20 mEq 40 meq PO DAILY #30 tab 04/21/21 tablet,extended release(part/cryst) (Klor-Con M) atorvastatin 40 mg tablet 40 mg PO QAM #30 tab 04/22/21 Results & Data (ED) Laboratory Data Result diagrams: 04/21/21 07:25 04/21/21 07:25 Lab Results 04/20/21 04/20/21 04/20/21 Range/Units 12:20 12:20 13:07 WBC 5.66 (4.8-10.8) K/uL RBC 3.68 L (4.2-5.4) M/uL Hgb 11.1 L (12.0-16.0) g/dL Hct 33.3 L (37-47) % MCV 90.5 (80-100) fL MCH 30.2 (25-34) pg MCHC 33.3 (32-36) g/dL RDW Std Deviation 56.0 H (36.4-46.3) fL RDW Coeff of Janie 17.0 H (11.5-14.5) % Plt Count 232 (130-400) K/uL MPV 9.7 (7.4-10.4) fL Immature Gran % (Auto) 0.0 % Neut % (Auto) 67.9 % Lymph % (Auto) 21.2 % Evans % (Auto) 9.9 % Eos % (Auto) 0.5 % Baso % (Auto) 0.5 % Neut # (Auto) 3.84 (1.4-6.5) K/uL Lymph # (Auto) 1.20 (1.2-3.4) K/uL Evans # (Auto) 0.56 (0.11-0.59) K/uL Eos # (Auto) 0.03 (0-0.5) K/uL Baso # (Auto) 0.03 (0-0.2) K/uL Immature Gran # (Auto) 0.00 (0.00-0.02) K/uL Sodium 137 (136-145) mmol/L Potassium 3.5 (3.5-5.1) mmol/L Chloride 105 (98-107) mmol/L Carbon Dioxide 21 (21-32) mmol/L Anion Gap 11.0 (3-11) BUN 14 (7-18) mg/dl Creatinine 0.85 (0.6-1.2) mg/dl Est Cr Clr Drug Dosing 42.3 ml/min Est GFR ( Amer) 78.8 ml/min Est GFR (Non-Af Amer) 68.0 ml/min BUN/Creatinine Ratio 16.7 (10-20) Glucose 72 (70-99) mg/dl Calcium 8.8 (8.5-10.1) mg/dl Total Bilirubin 1.1 H (0.2-1) mg/dl AST 73 H (15-37) U/L ALT 42 (12-78) U/L Alkaline Phosphatase 118 H (45-117) U/L Total Protein 6.2 L (6.4-8.2) gm/dl Albumin 2.4 L (3.4-5.0) gm/dl Globulin 3.8 (2.5-4.0) gm/dl Albumin/Globulin Ratio 0.6 L (0.9-2) Specimen Hemolysis COVID-19 Eval Order Covid19 at [facility] SARS-CoV-2 (PCR) (Negative) 04/20/21 Range/Units 13:07 WBC (4.8-10.8) K/uL RBC (4.2-5.4) M/uL Hgb (12.0-16.0) g/dL Hct (37-47) % MCV (80-100) fL MCH (25-34) pg MCHC (32-36) g/dL RDW Std Deviation (36.4-46.3) fL RDW Coeff of Janie (11.5-14.5) % Plt Count (130-400) K/uL MPV (7.4-10.4) fL Immature Gran % (Auto) % Neut % (Auto) % Lymph % (Auto) % Evans % (Auto) % Eos % (Auto) % Baso % (Auto) % Neut # (Auto) (1.4-6.5) K/uL Lymph # (Auto) (1.2-3.4) K/uL Evans # (Auto) (0.11-0.59) K/uL Eos # (Auto) (0-0.5) K/uL Baso # (Auto) (0-0.2) K/uL Immature Gran # (Auto) (0.00-0.02) K/uL Sodium (136-145) mmol/L Potassium (3.5-5.1) mmol/L Chloride (98-107) mmol/L Carbon Dioxide (21-32) mmol/L Anion Gap (3-11) BUN (7-18) mg/dl Creatinine (0.6-1.2) mg/dl Est Cr Clr Drug Dosing ml/min Est GFR ( Amer) ml/min Est GFR (Non-Af Amer) ml/min BUN/Creatinine Ratio (10-20) Glucose (70-99) mg/dl Calcium (8.5-10.1) mg/dl Total Bilirubin (0.2-1) mg/dl AST (15-37) U/L ALT (12-78) U/L Alkaline Phosphatase (45-117) U/L Total Protein (6.4-8.2) gm/dl Albumin (3.4-5.0) gm/dl Globulin (2.5-4.0) gm/dl Albumin/Globulin Ratio (0.9-2) Specimen Hemolysis COVID-19 Eval Order SARS-CoV-2 (PCR) NEGATIVE (Negative) Administered Medications Discontinued Medications Amiodarone HCl (Amiodarone 200 Mg Tab) 200 mg PO DAILY NARESH Stop: 05/21/21 08:59 Last Admin: 04/21/21 08:12 Dose: 200 mg Documented by: [id number] Atorvastatin Calcium (Atorvastatin 40 Mg Tab) 40 mg PO QAM NARESH Stop: 05/21/21 08:59 Last Admin: 04/21/21 08:13 Dose: 40 mg Documented by: [id number] Gabapentin (Gabapentin 400 Mg Cap) 400 mg PO TID NARESH Stop: 05/20/21 20:59 Last Admin: 04/21/21 15:26 Dose: 400 mg Documented by: [id number] Admin: 04/21/21 08:12 Dose: 400 mg Documented by: [id number] Admin: 04/20/21 20:36 Dose: Not Given Documented by: [id number] Acetaminophen (Ofirmev) 1,000 mg in 100 mls @ 400 mls/hr IV NOW STA Stop: 04/20/21 14:12 Last Infusion: 04/20/21 14:20 Dose: 0 mls/hr Documented by: [id number] Admin: 04/20/21 14:03 Dose: 400 mls/hr Documented by: [id number] Ceftriaxone Sodium (Rocephin) 2,000 mg in 70 mls @ 140 mls/hr IV NOW STA Stop: 04/20/21 14:34 Last Infusion: 04/20/21 15:02 Dose: 0 mls/hr Documented by: [id number] Admin: 04/20/21 14:20 Dose: 140 mls/hr Documented by: [id number] Ceftriaxone Sodium 1,000 mg/ (Dextrose) 50 mls @ 100 mls/hr IV Q24H NARESH; Protocol Stop: 05/01/21 13:59 Last Admin: 04/21/21 15:42 Dose: Not Given Documented by: [id number] Potassium Chloride/Dextrose/Sod Cl (D5nss + 20meq Kcl) 20 meq in 1,000 mls @ 80 mls/hr IV .[id number] NARESH Stop: 05/20/21 17:29 Last Admin: 04/21/21 18:24 Dose: Not Given Documented by: [id number] Infusion: 04/21/21 16:39 Dose: 0 mls/hr Documented by: [id number] Admin: 04/21/21 08:11 Dose: 80 mls/hr Documented by: [id number] Infusion: 04/21/21 07:17 Dose: 80 mls/hr Documented by: [id number] Admin: 04/20/21 18:47 Dose: 80 mls/hr Documented by: [id number] Magnesium Sulfate/Dextrose (Magnesium Sulfate / D5w) 1 gm in 100 mls @ 50 mls/hr IV Q2H NARESH Stop: 04/21/21 16:59 Last Infusion: 04/21/21 18:25 Dose: 0 mls/hr Documented by: [id number] Admin: 04/21/21 15:59 Dose: 50 mls/hr Documented by: [id number] Infusion: 04/21/21 15:44 Dose: 50 mls/hr Documented by: [id number] Admin: 04/21/21 13:44 Dose: 50 mls/hr Documented by: [id number] Infusion: 04/21/21 13:38 Dose: 50 mls/hr Documented by: [id number] Admin: 04/21/21 11:38 Dose: 50 mls/hr Documented by: [id number] Infusion: 04/21/21 11:38 Dose: 50 mls/hr Documented by: [id number] Admin: 04/21/21 09:48 Dose: 50 mls/hr Documented by: [id number] Lidocaine HCl (Lidocaine 4% Inh Soln 4 Ml Btl) 1.5 ml KAREN NOW ONE Stop: 04/20/21 12:00 Last Admin: 04/20/21 12:35 Dose: 1.5 ml Documented by: [id number] Metoprolol Succinate (Metoprolol Succ 25mg Ext Rel Tab) 12.5 mg PO BID NARESH Stop: 05/20/21 20:59 Last Admin: 04/21/21 08:12 Dose: 12.5 mg Documented by: [id number] Admin: 04/20/21 20:33 Dose: 12.5 mg Documented by: [id number] Ondansetron HCl (Ondansetron Inj 2 Mg/Ml 2 Ml Vial) 4 mg IV NOW STA Stop: 04/20/21 12:00 Last Admin: 04/20/21 12:20 Dose: 4 mg Documented by: [id number] Oxymetazoline HCl (Oxymetazoline 0.05% 30 Ml Btl) 1 sprays KAREN NOW ONE Stop: 04/20/21 12:00 Last Admin: 04/20/21 12:36 Dose: 1 sprays Documented by: [id number] Potassium Chloride (Potassium Chloride Crtab 20 Meq Tabcr) 20 meq PO DAILY NARESH Stop: 05/21/21 08:59 Last Admin: 04/21/21 08:13 Dose: 20 meq Documented by: [id number] Potassium Chloride (Potassium Chloride Crtab 20 Meq Tabcr) 40 meq PO NOW STA Stop: 04/21/21 08:52 Last Admin: 04/21/21 09:51 Dose: 40 meq Documented by: [id number] Pramipexole Dihydrochloride (Pramipexole Dihydrochlo 0.25 Mg Tab) 0.125 mg PO HS NARESH Stop: 05/21/21 00:59 Last Admin: 04/21/21 00:44 Dose: 0.125 mg Documented by: [id number] Tranexamic Acid (Txa 10% Non-Iv Routes 100 Mg/Ml Vial) 1,000 mg TOP ONE ONE Stop: 04/20/21 12:00 Last Admin: 04/20/21 12:37 Dose: 1,000 mg Documented by: [id number] Trazodone HCl (Trazodone Hcl 50 Mg Tab) 50 mg PO NOW ONE Stop: 04/20/21 21:04 Last Admin: 04/20/21 21:13 Dose: 50 mg Documented by: [id number] Vitamin D (Cholecalciferol 1,000 Units 25 Mcg Tab) 5,000 units PO QA NARESH Stop: 05/21/21 08:59 Last Admin: 04/21/21 08:12 Dose: 5,000 units Documented by: [id number] Discharge Plan Visit Data Chief Complaint: Nose Bleed (Minor) Stated Complaint: NOSE AND EYE BLEEDING ED Provider: Lamont Fagan Discharge Problem: Epistaxis, Anemia, Chronic anticoagulation Patient Disposition: Admitted As Inpatient Discharge Instructions Interventions: ED Discharge Assessment Last Done: 04/20/21 16:40 Discharge Problem: Anemia Qualifiers: Anemia type: unspecified type Qualified Code(s): D64.9 - Anemia, unspecified
== END 2021-04-21 18:40 | disposition home health service (06) ==
LOC: 3W 10:23 → ED 10:23 → SUATTDRO 14:34 → 3W 16:40

== ENCOUNTER 2021-08-03 18:36 | Inpatient (IN) ==
--- NOTE | 2021-08-03 19:15 | Emergency Department Note ---
Impression & Plan CHF (congestive heart failure), Fluid overload, Leg swelling, RICH (dyspnea on exertion) ED Provider Note Provider: Cristian Monroe MD DATE OF SERVICE: 08/03/2021 CHIEF COMPLAINT: Shortness of breath, swelling HISTORY OF PRESENT ILLNESS: Patient is a 75-year-old female history of atrial fibrillation on Eliquis and amiodarone, sacroiliitis, peripheral artery disease, osteopenia, hypertension, and reported heart failure presenting here today via ambulance from her home. Neighbors became concerned as the patient's had multiple falls over the past several weeks. She denies striking her head or significant headache or dizziness. She states that she gets short of breath getting around over the past 2 to 3 weeks and she is had worsening swelling of her legs and today into her prickly left arm. The swelling of her legs extends into the buttock and abdominal region. States that she supposed to be on some Bumex but takes it inconsistently as she has difficulty getting to the bathroom and does not want to urinate herself. Patient denies fever but states she does have somewhat of a cough. She denies chest pain. She states she has some pain into the left hip a bit. EMS report dated difficult time getting a pulse ox due to some cold extremities. Patient does report she feels a little bit foggy. Patient is not on home oxygen. REVIEW OF SYSTEMS: A total of 10 review of systems was obtained and negative except as stated above in the HPI. PAST MEDICAL HISTORY: As noted above MEDICATIONS: Reviewed home medications SOCIAL HISTORY: Lives at home with PHYSICAL EXAM: GENERAL: alert and oriented but fatigued in appearance Head: normocephalic and atraumatic EYES: No injection, discharge or icterus. NECK: Trachea midline. Supple. ENT: Mucous membranes pink and moist. LUNGS: Airway patent. No retractions. Breath sounds superiorly with clear crackles in the bases HEART: Regular rate and rhythm. No chest wall tenderness ABDOMEN: Soft and non-tender, without guarding or rebound. SKIN: Acyanotic, warm, dry, without rashes EXTREMITIES: 3+ bilateral lower extremity edema extends to the sacral area. Mild extremity edema of the bilateral upper extremities. NEUROLOGICAL: No focal deficits moving all extremities to pain with movement of the lower extremities. No aphasia. No facial droop or slurred speech. EK bpm sinus bradycardia. No PVC or PAC noted. No acute ST segment elevation with a QTC of 490. Inferior T wave inversions lateral T wave i nversions noted. CONTINUOUS CARDIAC MONITORING: was ordered and showed a heart rate of 50s-70s bpm in sinus rhythm to sinus bradycardia with rare PVC Patient's laboratory studies and imaging reviewed. Differential includes Infection, dehydration, metabolic abnormality, hypo/hyperglycemia, electrolyte disturbance, anemia, hypoxia, cardiac sources, intracerebral event, toxicologic, neurologic, as well as other pathologies. IMPRESSION/MEDICAL DECISION MAKING: Patient appears significantly fluid overloaded. Poor peripheral perfusion. States compliance with home Eliquis. Not taking Bumex regularly at home. Given some Bumex IV here. Patient states her does not want her to follow with the heart failure clinic and that she has not been going. Patient states to me that she did not take her Bumex as she did not want to have bladder incontinence at home she has difficulty getting to the bathroom. Mild lactic acidosis likely related to her fluid overload status. Doubt this is sepsis. No hypercarbia on VBG. TSH somewhat elevated but free T4 within normal limits. Patient has been on amiodarone. Creatinine near baseline slightly elevated 1.3. Chest x-ray with some coarse findings and some left pleural effusion per radiology. No white blood cell count elevation and minimal anemia. X-rays of the hips and pelvis obtained given some left hip pain likely believe the pains from fluid overload there is no evidence of fracture on the x-rays and no significant bruising on clinical exam. Troponin not significantly elevated. proBNP severely elevated. Weight up compared to previous from heart failure clinic. Negative Covid. Discussed with patient and she is agree with the plan for admission for diuresis. Updated her son Romario via phone per her request. Hospitalist contacted. DIAGNOSIS: CHF exacerbation, fluid overload, leg swelling, dyspnea on exertion DISPOSITION: Hospitalist will evaluate Patient was agreeable with this plan. Past Med/Surg History Medical History Acute kidney injury Anemia chronic, baseline hgb 10's Arthritis Chronic reflux esophagitis controlled Depression Dyslipidemia Hypercalcemia Hypertension Hypokalemia LBBB (left bundle branch block) dating back to 08/2020 [place] EKG On apixaban therapy Osteopenia Peripheral arterial disease Bilateral Common Iliac Artery Stenting(Bilateral), Bilateral Femoral Artery Endarterectomy with Bovine Patch (08/2020) Peripheral neuropathy Pulmonary nodule per records, pt denies RLS (restless legs syndrome) Sleep apnea no device Vitamin D deficiency Surgical History H/O endarterectomy Bilateral Common Iliac Artery Stenting(Bilateral), Bilateral Femoral Artery Endarterectomy with Bovine Patch: 08/26/20: Grade 2 view, MAC 3.0, ETT 7.0 at [facility] History of appendectomy History of carpal tunnel release of both wrists History of colonoscopy History of tooth extraction Hx of hysterectomy S/P femoral-tibial bypass Family History (Updated 04/23/21 @ 13:29 by Patricia Zendejas) Mother Hypertension Father Hypertension Sister Hypertension Allergies Brother Hypertension Grandfather (Maternal) Heart disease Grandmother (Maternal) Heart disease Other No family history of adverse response to anesthesia No family history of bleeding disorder Social History (Updated 04/23/21 @ 13:28 by Patricia Zendejas) Smoking Status: Former smoker Tobacco Type: Cigarettes Age Started Using Tobacco: 7; Cigarettes Per Day: 3; Second Hand Exposure: No; Hx Alcohol Use: Yes Alcohol type: beer Alcohol Intake Frequency Comment: Typically 2 beers each day Hx Substance Use: No Preferred Language: Nauruan Communication Ability: Effective Visual Impairment: No Limitations Hearing Ability: Hard of Hearing Fire Investigator Required: No Beliefs That Will Affect Care: None marital status: Current Living Situation: Spouse Current Living Situation Comment: - Abdulaziz current occupational status: retired How many Children do You have: 1 Feels Safe at Home: Yes Assistive Devices: Glasses and Walker Allergies Allergies Allergy/AdvReac Type Severity Reaction Status Date / Time Penicillins Allergy Intermediate Hives Verified 08/03/21 19:42 Home Meds Home Medications Medication Instructions Recorded Confirmed cholecalciferol (vitamin D3) 25 5,000 unit PO QAM cap 08/11/20 08/03/21 mcg (1,000 unit) capsule multivitamin with minerals 1 tab PO QAM 09/26/20 08/03/21 calcium carbonate 500 mg (1,250 1 tab PO DAILY 12/08/20 08/03/21 mg)-vitamin D3 200 unit tablet (Calcium 500 + D) amiodarone 200 mg tablet 200 mg PO DAILY 01/05/21 08/03/21 ipratropium 20 mcg-albuterol 100 1 puff INHALATION Q6H PRN 02/19/21 08/03/21 mcg/actuation mist for inhalation (Combivent Respimat) nystatin 100,000 unit/gram topical 1 applic TOPICAL DAILY PRN 02/19/21 08/03/21 powder Previous Rx's Medication Instructions Recorded diclofenac sodium 1 % topical gel 2 g TOPICAL QID PRN #2 g 02/19/21 metoprolol succinate 25 mg 12.5 mg PO BID #30 tab 02/19/21 tablet,extended release 24 hr gabapentin 400 mg capsule 400 mg PO TID #90 cap 03/05/21 pramipexole 0.125 mg tablet 0.125 mg PO DAILY #30 tab 03/05/21 bumetanide 1 mg tablet 1 mg PO DAILY PRN #30 tab 04/01/21 magnesium oxide 400 mg PO BID #30 tab 04/21/21 atorvastatin 40 mg tablet 40 mg PO QAM #30 tab 04/22/21 potassium chloride 20 mEq 40 meq PO DAILY #60 tab 06/14/21 tablet,extended release(part/cryst) (Klor-Con M) omeprazole 40 mg capsule,delayed 40 mg PO DAILY #30 cap 06/28/21 release Results & Data (ED) Vital Signs Vital Signs - 24 hr 08/03/21 18:49 08/03/21 18:54 08/03/21 19:26 Temperature 36.4 C L Temperature Source Oral Pulse Rate 58 L 63 Respiratory Rate 20 22 Blood Pressure 135/70 Blood Pressure Mean 91 Pulse Oximetry 100 99 100 Oxygen Delivery Method Room Air Room Air Nasal Cannula Oxygen Flow Rate 2 Sepsis Recent Fever Within 48 Hours No Sepsis New/Unexplained Change in Mental Status No Sepsis Action Taken by Nursing No Action Required 08/03/21 19:30 08/03/21 19:40 08/03/21 19:50 Temperature Temperature Source Pulse Rate 59 L 61 57 L Respiratory Rate 21 22 19 Blood Pressure 135/70 Blood Pressure Mean 91 Pulse Oximetry 99 100 98 Oxygen Delivery Method Nasal Cannula Nasal Cannula Nasal Cannula Oxygen Flow Rate 2 2 2 Sepsis Recent Fever Within 48 Hours Sepsis New/Unexplained Change in Mental Status Sepsis Action Taken by Nursing 08/03/21 20:00 08/03/21 20:10 08/03/21 20:20 Temperature Temperature Source Pulse Rate 58 L 56 L 56 L Respiratory Rate 18 20 21 Blood Pressure Blood Pressure Mean Pulse Oximetry 100 99 100 Oxygen Delivery Method Nasal Cannula Nasal Cannula Nasal Cannula Oxygen Flow Rate 2 2 2 Sepsis Recent Fever Within 48 Hours Sepsis New/Unexplained Change in Mental Status Sepsis Action Taken by Nursing 08/03/21 20:30 08/03/21 20:40 08/03/21 20:50 Temperature Temperature Source Pulse Rate 58 L 58 L 57 L Respiratory Rate 22 20 14 Blood Pressure 121/62 Blood Pressure Mean 81 Pulse Oximetry 93 98 98 Oxygen Delivery Method Nasal Cannula Nasal Cannula Nasal Cannula Oxygen Flow Rate 2 2 2 Sepsis Recent Fever Within 48 Hours Sepsis New/Unexplained Change in Mental Status Sepsis Action Taken by Nursing Laboratory Data Result diagrams: 08/03/21 19:06 08/03/21 19:06 Lab Results 08/03/21 08/03/21 08/03/21 Range/Units 19:06 19:06 19:06 WBC 5.68 (4.8-10.8) K/uL RBC 4.43 (4.2-5.4) M/uL Hgb 10.9 L (12.0-16.0) g/dL Hct 35.7 L (37-47) % MCV 80.6 (80-100) fL MCH 24.6 L (25-34) pg MCHC 30.5 L (32-36) g/dL RDW Std Deviation 68.3 H (36.4-46.3) fL RDW Coeff of Janie 23.8 H (11.5-14.5) % Plt Count 204 (130-400) K/uL MPV 10.4 (7.4-10.4) fL Immature Gran % (Auto) 0.2 % Neut % (Auto) 59.0 % Lymph % (Auto) 31.5 % [place] % (Auto) 7.2 % Eos % (Auto) 1.2 % Baso % (Auto) 0.9 % Neut # (Auto) 3.35 (1.4-6.5) K/uL Lymph # (Auto) 1.79 (1.2-3.4) K/uL [place] # (Auto) 0.41 (0.11-0.59) K/uL Eos # (Auto) 0.07 (0-0.5) K/uL Baso # (Auto) 0.05 (0-0.2) K/uL Immature Gran # (Auto) 0.01 (0.00-0.02) K/uL Acanthocytes (Spur) 2+ PT 16.1 H (9.0-12.0) Seconds INR 1.6 H (0.9-1.1) VBG pH (7.36-7.41) VBG pCO2 (38-50) mmHg VBG pO2 mmHg VBG HCO3 mmol/L VBG O2 Saturation % VBG Base Excess mEq/L Barometric Pressure mm/Hg Sodium 138 (136-145) mmol/L Potassium 5.0 (3.5-5.1) mmol/L Chloride 110 H (98-107) mmol/L Carbon Dioxide 16 L (21-32) mmol/L Anion Gap 12.0 H (3-11) BUN 19 H (7-18) mg/dl Creatinine 1.32 H (0.6-1.2) mg/dl Est Cr Clr Drug Dosing 31.1 ml/min Est GFR ( Amer) 46.3 ml/min Est GFR (Non-Af Amer) 39.9 ml/min BUN/Creatinine Ratio 14.0 (10-20) Glucose 77 (70-99) mg/dl Lactate (0.4-2.0) mmol/L Calcium 8.7 (8.5-10.1) mg/dl Magnesium 1.7 L (1.8-2.4) mg/dl Total Bilirubin 1.1 H (0.2-1) mg/dl AST 173 H (15-37) U/L ALT 101 H (12-78) U/L Alkaline Phosphatase 122 H (45-117) U/L Troponin I 0.037 (0-0.045) ng/ml NT-Pro-B Natriuret Pep 34007 H (0-900) pg/ml Total Protein 7.3 (6.4-8.2) gm/dl Albumin 2.5 L (3.4-5.0) gm/dl Globulin 4.8 H (2.5-4.0) gm/dl Albumin/Globulin Ratio 0.5 L (0.9-2) TSH 20.000 H (0.300-4.500) uIu/ml Free T4 0.95 (0.8-1.6) ng/dl SARS-CoV-2, RNA, NAAT (NEGATIVE) 11/23/21 11/23/21 11/23/21 Range/Units 19:06 19:06 19:31 WBC (4.8-10.8) K/uL RBC (4.2-5.4) M/uL Hgb (12.0-16.0) g/dL Hct (37-47) % MCV (80-100) fL MCH (25-34) pg MCHC (32-36) g/dL RDW Std Deviation (36.4-46.3) fL RDW Coeff of Janie (11.5-14.5) % Plt Count (130-400) K/uL MPV (7.4-10.4) fL Immature Gran % (Auto) % Neut % (Auto) % Lymph % (Auto) % [place] % (Auto) % Eos % (Auto) % Baso % (Auto) % Neut # (Auto) (1.4-6.5) K/uL Lymph # (Auto) (1.2-3.4) K/uL [place] # (Auto) (0.11-0.59) K/uL Eos # (Auto) (0-0.5) K/uL Baso # (Auto) (0-0.2) K/uL Immature Gran # (Auto) (0.00-0.02) K/uL Acanthocytes (Spur) PT (9.0-12.0) Seconds INR (0.9-1.1) VBG pH 7.27 L (7.36-7.41) VBG pCO2 37 L (38-50) mmHg VBG pO2 20 mmHg VBG HCO3 17 mmol/L VBG O2 Saturation < 60.0 % VBG Base Excess -9.4 mEq/L Barometric Pressure 736.9 mm/Hg Sodium (136-145) mmol/L Potassium (3.5-5.1) mmol/L Chloride (98-107) mmol/L Carbon Dioxide (21-32) mmol/L Anion Gap (3-11) BUN (7-18) mg/dl Creatinine (0.6-1.2) mg/dl Est Cr Clr Drug Dosing ml/min Est GFR ( Amer) ml/min Est GFR (Non-Af Amer) ml/min BUN/Creatinine Ratio (10-20) Glucose (70-99) mg/dl Lactate 4.9 H* (0.4-2.0) mmol/L Calcium (8.5-10.1) mg/dl Magnesium (1.8-2.4) mg/dl Total Bilirubin (0.2-1) mg/dl AST (15-37) U/L ALT (12-78) U/L Alkaline Phosphatase (45-117) U/L Troponin I (0-0.045) ng/ml NT-Pro-B Natriuret Pep (0-900) pg/ml Total Protein (6.4-8.2) gm/dl Albumin (3.4-5.0) gm/dl Globulin (2.5-4.0) gm/dl Albumin/Globulin Ratio (0.9-2) TSH (0.300-4.500) uIu/ml Free T4 (0.8-1.6) ng/dl SARS-CoV-2, RNA, NAAT NEGATIVE (NEGATIVE) Administered Medications Discontinued Medications Bumetanide 1 mg/ Syringe 4 mls @ 4 mls/min IV ONE ONE Stop: 08/03/21 20:13 Last Admin: 08/03/21 20:59 Dose: 4 mls/min Documented by: [id number] Imaging Data Radiologist's Impression: Chest X-Ray 08/03/21 18:49 XR chest 1V portable HISTORY: 75 years-old Female sob, swelling acute shortness of breath COMPARISON: Chest CT 11/21/2020, chest radiograph 11/17/2020 TECHNIQUE: Supine AP view the chest FINDINGS: Cardiac silhouette is enlarged. Mild nonspecific interstitial coarsening without pneumothorax or overt pulmonary edema. The inferior right costophrenic angle is partially excluded from the [id number]. Small moderate left pleural effusion with left basilar consolidation. Degenerative changes of the shoulders and spine. Healed chronic bilateral rib fractures. Arterial calcifications. IMPRESSION: 1. Cardiomegaly with mild nonspecific interstitial coarsening. 2. Small to moderate left pleural effusion with left basilar consolidation suggestive of atelectasis versus pneumonia. ACT 112: Negative or not required by law. The above report was generated using voice recognition software. It may contain grammatical, syntax or spelling errors. Electronically signed by: Bran Cuevas M.D. 08/03/2021 8:13 PM Hip/Pelvis X-Ray 08/03/21 18:49 XR hip LT 2V w pelvis HISTORY: 75 years-old Female pain, swelling acute pain of the pelvis and left hip COMPARISON: 11/07/2018 radiographs TECHNIQUE: AP view of the pelvis with 2 views of the left hip FINDINGS: Nonspecific soft tissue prominence is noted bilaterally. Surgical suture material the pelvis with bilateral iliac and right femoral stent grafts. Arterial calcifications. Mild osteoarthritis of the hips. No acute fracture, dislocation or avascular necrosis. IMPRESSION: No acute fracture or dislocation. ACT 112: Negative or not required by law. The above report was generated using voice recognition software. It may contain grammatical, syntax or spelling errors. Electronically signed by: Bran Cuevas M.D. 08/03/2021 8:06 PM Discharge Plan Visit Data Chief Complaint: Shortness of Breath/Dyspnea Stated Complaint: FLUID RETENTION, EDEMA TO HANDS & FEET, SOB ED Provider: Cristian Monroe Discharge Problem: CHF (congestive heart failure), Fluid overload, Leg swelling, RICH (dyspnea on exertion) Patient Disposition: Admitted As Inpatient Discharge Instructions Interventions: ED Discharge Assessment Last Done: 08/03/21 23:33
[2021-08-03 19:24] LABS: Basophils # (auto) 0.05 K/uL (0-0.2); Basophils % (auto) 0.9 %; Eosinophils # (auto) 0.07 K/uL (0-0.5); Eosinophils % (auto) 1.2 %; Hematocrit (blood only) 35.7 % (37-47); Hemoglobin 10.9 g/dL (12.0-16.0); Immature Granulocytes # (auto) 0.01 K/uL (0.00-0.02); Immature Granulocytes % (auto) 0.2 %; Lymphocytes # (auto) 1.79 K/uL (1.2-3.4); Lymphocytes % (auto) 31.5 %; Mean Corpuscular Hemoglobin 24.6 pg (25-34); Mean Corpuscular Hgb Conc 30.5 g/dL (32-36); Mean Corpuscular Volume 80.6 fL (80-100); Mean Platelet Volume 10.4 fL (7.4-10.4); Monocytes # (auto) 0.41 K/uL (0.11-0.59); Monocytes % (auto) 7.2 %; Neutrophils # (auto) 3.35 K/uL (1.4-6.5); Platelet Count 204 K/uL (130-400); RDW Coefficient of Variation 23.8 % (11.5-14.5); RDW Standard Deviation 68.3 fL (36.4-46.3); Red Blood Count 4.43 M/uL (4.2-5.4); White Blood Count 5.68 K/uL (4.8-10.8)
[2021-08-03 19:27] LABS: Base Excess VBG -9.4 mEq/L; HCO3 VBG 17 mmol/L; PCO2 VBG 37 mmHg (38-50); PO2 VBG 20 mmHg; pH VBG 7.27 (7.36-7.41)
[2021-08-03 19:35] LABS: INR 1.6 (0.9-1.1); Prothrombin Time 16.1 Seconds (9.0-12.0)
[2021-08-03 19:45] LABS: Acanthocytes 2+; Albumin Level 2.5 gm/dl (3.4-5.0); Calcium 8.7 mg/dl (8.5-10.1); Creatinine Clr Calc Pharmacy 31.1 ml/min; Est GFR (African American) 46.3 ml/min; Est GFR (Non-African American) 39.9 ml/min; Magnesium 1.7 mg/dl (1.8-2.4)
[2021-08-03 19:56] LABS: Albumin Globulin Ratio 0.5 (0.9-2); Bilirubin,Total 1.1 mg/dl (0.2-1); Globulin 4.8 gm/dl (2.5-4.0); Total Protein 7.3 gm/dl (6.4-8.2); Troponin I 0.037 ng/ml (0-0.045)
--- NOTE | 2021-08-03 20:07 | XRay Report ---
XR hip LT 2V w pelvis HISTORY: 75 years-old Female pain, swelling acute pain of the pelvis and left hip COMPARISON: 11/07/2018 radiographs TECHNIQUE: AP view of the pelvis with 2 views of the left hip FINDINGS: Nonspecific soft tissue prominence is noted bilaterally. Surgical suture material the pelvis with yesi ateral iliac and right femoral stent grafts. Arterial calcifications. Mild osteoarthritis of the hips . No acute fracture, dislocation or avascular necrosis. IMPRESSION: No acute fracture or dislocation. ACT 112: Negative or not required by law. The above report was generated using voice recognition software. It may contain grammatical, syntax o r spelling errors. Electronically signed by: Bran Cuevas M.D. 08/03/2021 8:06 PM
[2021-08-03 20:08] LABS: T4 Free Thyroxine 0.95 ng/dl (0.8-1.6)
[2021-08-03] MEDS ORDERED: BUMETANIDE 1 MG in SYRINGE 0 ML IV ONE (20:12)
--- NOTE | 2021-08-03 20:14 | XRay Report ---
XR chest 1V portable HISTORY: 75 years-old Female sob, swelling acute shortness of breath COMPARISON: Chest CT 11/21/2020, chest radiograph 11/17/2020 TECHNIQUE: Supine AP view the chest FINDINGS: Cardiac silhouette is enlarged. Mild nonspecific interstitial coarsening without pneumothorax or over t pulmonary edema. The inferior right costophrenic angle is partially excluded from the [id number] . Small moderate left pleural effusion with left basilar consolidation. Degenerative changes of the s houlders and spine. Healed chronic bilateral rib fractures. Arterial calcifications. IMPRESSION: 1. Cardiomegaly with mild nonspecific interstitial coarsening. 2. Small to moderate left pleural effusion with left basilar consolidation suggestive of atelectasis versus pneumonia. ACT 112: Negative or not required by law. The above report was generated using voice recognition software. It may contain grammatical, syntax o r spelling errors. Electronically signed by: Bran Cuevas M.D. 08/03/2021 8:13 PM
--- NOTE | 2021-08-03 21:30 | History & Physical Report ---
Date of Service August 03, 2021 Assessment & Plan (1) HFrEF (heart failure with reduced ejection fraction): Plan: 75-year-old female with an extensive vascular history including coronary artery disease, peripheral arterial disease status post femoral-tibial bypass, CHF with EF 40-45 (November 2020) who is being admitted for hypoxia secondary to acute CHF exacerbation. CHF exacerbation proBNP 22,000, now requiring 2 L nasal cannula, extensive peripheral edema to hips bilaterally Most likely mix of having salt loaded diet (lunch meats) and not taking her Bumex at home (1 mg p.o. per day) Started on 1 mg IV Bumex twice daily Monitor I's and O's, external pure wick catheter placed Repeat TTE in a.m. Regimen currently includes beta-андрей, and Bumex. Follows with [facility] CHF clinic According to heart failure visit in March 2021 dry weight quoted to be approximately 120-125 pounds, currently approximately 135 pounds Atrial fibrillation Currently rate controlled with metoprolol as above Not anticoagulated; per chart review appears that she was on 5 mg of Eliquis twice daily in April but then was admitted to the hospital for severe epistaxis at which time Eliquis was held. Decision to restart Eliquis was delayed to follow-up to ENT visit however it was not restarted at the follow-up. Vascular surgery report from June 2021 does not mention restarting the anticoagulation. [id number]: 5, moderate to high risk for stroke Has bled score: 2 to 3 points, moderate risk for major bleeding INR 1.6? Repeat in a.m. Lactic acidosis lactate of 4.9 initially, down to 3.9 with fluid administration VBG 7.27/37/20/17 ABG pending No signs of infection, normal WBC count, afebrile, normotensive, bradycardic secondary to poor forward flow/possibly worsened ejection fraction in the setting of CHF exacerbation? New TTE as above Transaminitis/amiodarone toxicity AST 173, ALT 101, alk phos 122 History of elevated AST however no previous ALT or alk phos elevations No history of cirrhosis or hepatic injury. CTA abdomen/aorta with runoff and 2020 noted fatty liver Albumin 2.5, platelet 204 Possibly secondary to amiodarone toxicity given that TSH is 20.000. Free T4 0.95 Hold amiodarone Daily CMP, repeat TSH at end of hospitalization/in a few weeks after hospitalization Acute kidney injury Creatinine 1.32, baseline approximately 0.8-1 Gentle p.o. hydration, expect will improve with diuresis Daily BMP, monitor creatinine with IV Bumex COPD Continue home inhalers Restless leg syndrome Continue pramipexole nightly Continue gabapentin 400 TID Peripheral artery disease status post femoral-tibial bypass Continue statin Not currently on any antiplatelet agents. See above has-bled score in setting of severe epistaxis requiring hospital admission Ambulatory dysfunction Secondary to ongoing sacroiliitis and generalized weakness and decline PT OT ruchi's Patient complaining of excessive saliva and frequent choking on saliva at nighttime that is new over the last 2 to 3 weeks Speech consult; seen by speech in November 2020no overt signs or symptoms of aspiration at that time. If changed, consider imaging for stroke evaluation Case management consult placed for complex placement with spouse who is starting hospice care and this patient was now unable to take care of herself DVT ppx: heparin sq FEN/GI: Heart Healthy, Low Sodium Bowel regimen: prn miralax Code Status: DNR/DNI Dispo: med/tele (2) Chronic anticoagulation: (3) S/P femoral-tibial bypass: (4) Anemia: (5) COPD exacerbation: History of Present Illness Primary Care Provider: Marley Bates MD Pleasant 75-year-old female with a past medical history of HFrEF, PAF, PAD status post femoral-tibial bypass, COPD, history of alcohol and tobacco use, sacroiliitis, restless leg syndrome who presents emergency department for falls at home. History was brought in by her children who noted that she had been falling frequently at home. She notes that she has trouble ambulating at home and has been more dyspneic on exertion. She states that taking her Bumex causes her to have to go to the bathroom frequently which she is unable to do so she frequently does not take her Bumex. She states she also has not been eating much recently but when she does eat she frequently has lunch meats. She denies any episodes of chest pain, chest pressure recently. She denies any shortness of breath at rest. She does have significant bilateral leg pain secondary to the swelling and weight gain. Patient states that she lives at home with her , and both of them have been in and out of the hospital and rehab as of late. She states that her actually just got home from [facility] and is now on hospice care at home. She states that she is unable to take care of him and herself as she is barely able to get up from bed and walk the 2 steps to her bathroom. She does have a walker and cane at home that she uses to help her ambulate. She states she is unable to cook or clean at home and does not have anyone to help her. She does have 1 son sometimes helps out but she feels bad asking him for help because he is also very busy. She states that they have previously reach out to our office of [facility] but had not been able to follow through with getting additional assistance from them. Allergies Allergy/AdvReac Type Severity Reaction Status Date / Time Penicillins Allergy Intermediate Hives Verified 08/03/21 19:42 Home Medications Medication Instructions Recorded Confirmed Type cholecalciferol (vitamin D3) 25 5,000 unit PO QAM cap 08/11/20 08/03/21 History mcg (1,000 unit) capsule multivitamin with minerals 1 tab PO QAM 09/26/20 08/03/21 History calcium carbonate 500 mg (1,250 1 tab PO DAILY 12/08/20 08/03/21 History mg)-vitamin D3 200 unit tablet (Calcium 500 + D) amiodarone 200 mg tablet 200 mg PO DAILY 01/05/21 08/03/21 History diclofenac sodium 1 % topical gel 2 g TOPICAL QID PRN #2 g 02/19/21 08/03/21 Rx ipratropium 20 mcg-albuterol 100 1 puff INHALATION Q6H PRN 02/19/21 08/03/21 History mcg/actuation mist for inhalation (Combivent Respimat) metoprolol succinate 25 mg 12.5 mg PO BID #30 tab 02/19/21 08/03/21 Rx tablet,extended release 24 hr nystatin 100,000 unit/gram topical 1 applic TOPICAL DAILY PRN 02/19/21 08/03/21 History powder gabapentin 400 mg capsule 400 mg PO TID #90 cap 03/05/21 08/03/21 Rx pramipexole 0.125 mg tablet 0.125 mg PO DAILY #30 tab 03/05/21 08/03/21 Rx bumetanide 1 mg tablet 1 mg PO DAILY PRN #30 tab 04/01/21 08/03/21 Rx magnesium oxide 400 mg PO BID #30 tab 04/21/21 08/03/21 Rx atorvastatin 40 mg tablet 40 mg PO QAM #30 tab 04/22/21 08/03/21 Rx potassium chloride 20 mEq 40 meq PO DAILY #60 tab 06/14/21 08/03/21 Rx tablet,extended release(part/cryst) (Klor-Con M) omeprazole 40 mg capsule,delayed 40 mg PO DAILY #30 cap 06/28/21 08/03/21 Rx release Past Med/Surg History Medical History Acute kidney injury Anemia chronic, baseline hgb 10's Arthritis Chronic reflux esophagitis controlled Depression Dyslipidemia Hypercalcemia Hypertension Hypokalemia LBBB (left bundle branch block) dating back to 08/2020 [place] EKG On apixaban therapy Osteopenia Peripheral arterial disease Bilateral Common Iliac Artery Stenting(Bilateral), Bilateral Femoral Artery Endarterectomy with Bovine Patch (08/2020) Peripheral neuropathy Pulmonary nodule per records, pt denies RLS (restless legs syndrome) Sleep apnea no device Vitamin D deficiency Surgical History H/O endarterectomy Bilateral Common Iliac Artery Stenting(Bilateral), Bilateral Femoral Artery Endarterectomy with Bovine Patch: 08/26/20: Grade 2 view, MAC 3.0, ETT 7.0 at [facility] History of appendectomy History of carpal tunnel release of both wrists History of colonoscopy History of tooth extraction Hx of hysterectomy S/P femoral-tibial bypass Family History (Updated 04/23/21 @ 13:29 by Patricia Zendejas) Mother Hypertension Father Hypertension Sister Hypertension Allergies Brother Hypertension Grandfather (Maternal) Heart disease Grandmother (Maternal) Heart disease Other No family history of adverse response to anesthesia No family history of bleeding disorder Social History (Updated 04/23/21 @ 13:28 by Patricia Zendejas) Smoking Status: Unknown if ever smoked Tobacco Type: Cigarettes Age Started Using Tobacco: 7; Cigarettes Per Day: 3; Second Hand Exposure: No; Hx Alcohol Use: No Hx Substance Use: No Preferred Language: Comoran Communication Ability: Effective Visual Impairment: No Limitations Hearing Ability: Hard of Hearing Furnace Caretaker Required: No Beliefs That Will Affect Care: None marital status: Current Living Situation: Spouse Current Living Situation Comment: - Abdulaziz current occupational status: retired How many Children do You have: 1 Other Information That Helps Us Care for You: No Feels Safe at Home: Hesitant to Answer Assistive Devices: Walker Review of Systems Constitutional: no fever, no chills, no body aches and no fatigue Respiratory: + dyspnea and + dyspnea on exertion; no cough Cardiovascular: + dyspnea on exertion, + orthopnea and + edema; no chest pain, no dyspnea, no paroxysmal nocturnal dyspnea and no palpitations Gastrointestinal: no abdominal pain, no nausea, no vomiting, no constipation and no diarrhea/loose stools Genitourinary: no dysuria Neurologic: no tingling, no numbness, no dizziness and no confusion Physical Exam Physical Exam: Constitutional: elderly appearing female, in no apparent distress, laying in bed under multiple blankets Eyes: EOMI, pupils equal and reactive bilaterally, no scleral icterus Cardiac: RRR, no murmurs, gallops or rubs. Normal S1, S2 Pulm: CTA BL, mild crackles in left lower lobe, otherwise clear exam and good inspiratory effort on 2L NC Abd: soft, nontender, nondistended, normal bowel sounds, no rebound or guarding Extremities: 4+ pitting edema to hips Neuro: no focal deficits, moving all 4 limbs, A&Ox3 Results & Data Results & Data ([facility]) Vital Signs (Past 12 Hours) Vital Signs Temp Pulse Resp BP Pulse Ox 08/03/21 21:10 58 L 22 97 08/03/21 21:00 57 L 23 100 08/03/21 20:50 57 L 14 121/62 98 08/03/21 20:40 58 L 20 98 08/03/21 20:30 58 L 22 93 08/03/21 20:20 56 L 21 100 08/03/21 20:10 56 L 20 99 08/03/21 20:00 58 L 18 100 08/03/21 19:50 57 L 19 98 08/03/21 19:40 61 22 100 08/03/21 19:30 59 L 21 135/70 99 08/03/21 19:26 63 22 100 08/03/21 18:54 99 08/03/21 18:49 36.4 C L 58 L 20 135/70 100 Laboratory Results Laboratory Results WBC 5.68 K/uL (4.8-10.8) 08/03/21 19:06 RBC 4.43 M/uL (4.2-5.4) 08/03/21 19:06 Hgb 10.9 g/dL (12.0-16.0) L 08/03/21 19:06 Hct 35.7 % (37-47) L 08/03/21 19:06 MCV 80.6 fL (80-100) 08/03/21 19:06 MCH 24.6 pg (25-34) L 08/03/21 19:06 MCHC 30.5 g/dL (32-36) L 08/03/21 19:06 RDW Std Deviation 68.3 fL (36.4-46.3) H 08/03/21 19:06 RDW Coeff of Janie 23.8 % (11.5-14.5) H 08/03/21 19:06 Plt Count 204 K/uL (130-400) 08/03/21 19:06 MPV 10.4 fL (7.4-10.4) 08/03/21 19:06 Immature Gran % (Auto) 0.2 % 08/03/21 19:06 Neut % (Auto) 59.0 % 08/03/21 19:06 Lymph % (Auto) 31.5 % 08/03/21 19:06 [place] % (Auto) 7.2 % 08/03/21 19:06 Eos % (Auto) 1.2 % 08/03/21 19:06 Baso % (Auto) 0.9 % 08/03/21 19:06 Neut # (Auto) 3.35 K/uL (1.4-6.5) 08/03/21 19:06 Lymph # (Auto) 1.79 K/uL (1.2-3.4) 08/03/21 19:06 [place] # (Auto) 0.41 K/uL (0.11-0.59) 08/03/21 19:06 Eos # (Auto) 0.07 K/uL (0-0.5) 08/03/21 19:06 Baso # (Auto) 0.05 K/uL (0-0.2) 08/03/21 19:06 Immature Gran # (Auto) 0.01 K/uL (0.00-0.02) 08/03/21 19:06 Acanthocytes (Spur) 2+ 08/03/21 19:06 PT 16.1 Seconds (9.0-12.0) H 08/03/21 19:06 INR 1.6 (0.9-1.1) H 08/03/21 19:06 VBG pH 7.27 (7.36-7.41) L 08/03/21 19:06 VBG pCO2 37 mmHg (38-50) L 08/03/21 19:06 VBG pO2 20 mmHg 08/03/21 19:06 VBG HCO3 17 mmol/L 08/03/21 19:06 VBG O2 Saturation < 60.0 % 08/03/21 19:06 VBG Base Excess -9.4 mEq/L 08/03/21 19:06 Barometric Pressure 736.9 mm/Hg 08/03/21 19:06 Sodium 138 mmol/L (136-145) 08/03/21 19:06 Potassium 5.0 mmol/L (3.5-5.1) 08/03/21 19:06 Chloride 110 mmol/L (98-107) H 08/03/21 19:06 Carbon Dioxide 16 mmol/L (21-32) L 08/03/21 19:06 Anion Gap 12.0 (3-11) H 08/03/21 19:06 BUN 19 mg/dl (7-18) H 08/03/21 19:06 Creatinine 1.32 mg/dl (0.6-1.2) H 08/03/21 19:06 Est Cr Clr Drug Dosing 31.1 ml/min 08/03/21 19:06 Est GFR ( Amer) 46.3 ml/min 08/03/21 19:06 Est GFR (Non-Af Amer) 39.9 ml/min 08/03/21 19:06 BUN/Creatinine Ratio 14.0 (10-20) 08/03/21 19:06 Glucose 77 mg/dl (70-99) 08/03/21 19:06 Lactate 3.9 mmol/L (0.4-2.0) H* 08/03/21 21:27 Calcium 8.7 mg/dl (8.5-10.1) 08/03/21 19:06 Magnesium 1.7 mg/dl (1.8-2.4) L 08/03/21 19:06 Total Bilirubin 1.1 mg/dl (0.2-1) H 08/03/21 19:06 AST 173 U/L (15-37) H 08/03/21 19:06 ALT 101 U/L (12-78) H 08/03/21 19:06 Alkaline Phosphatase 122 U/L (45-117) H 08/03/21 19:06 Troponin I 0.037 ng/ml (0-0.045) 08/03/21 19:06 NT-Pro-B Natriuret Pep 56036 pg/ml (0-900) H 08/03/21 19:06 Total Protein 7.3 gm/dl (6.4-8.2) 08/03/21 19:06 Albumin 2.5 gm/dl (3.4-5.0) L 08/03/21 19:06 Globulin 4.8 gm/dl (2.5-4.0) H 08/03/21 19:06 Albumin/Globulin Ratio 0.5 (0.9-2) L 08/03/21 19:06 TSH 20.000 uIu/ml (0.300-4.500) H 08/03/21 19:06 Free T4 0.95 ng/dl (0.8-1.6) 08/03/21 19:06 SARS-CoV-2, RNA, NAAT NEGATIVE (NEGATIVE) 08/03/21 19:31 Impressions Chest X-Ray 08/03/21 18:49 XR chest 1V portable HISTORY: 75 years-old Female sob, swelling acute shortness of breath COMPARISON: Chest CT 11/21/2020, chest radiograph 11/17/2020 TECHNIQUE: Supine AP view the chest FINDINGS: Cardiac silhouette is enlarged. Mild nonspecific interstitial coarsening without pneumothorax or overt pulmonary edema. The inferior right costophrenic angle is partially excluded from the [id number]. Small moderate left pleural effusion with left basilar consolidation. Degenerative changes of the shoulders and spine. Healed chronic bilateral rib fractures. Arterial calcifications. IMPRESSION: 1. Cardiomegaly with mild nonspecific interstitial coarsening. 2. Small to moderate left pleural effusion with left basilar consolidation suggestive of atelectasis versus pneumonia. ACT 112: Negative or not required by law. The above report was generated using voice recognition software. It may contain grammatical, syntax or spelling errors. Electronically signed by: Bran Cuevas M.D. 08/03/2021 8:13 PM Hip/Pelvis X-Ray 08/03/21 18:49 XR hip LT 2V w pelvis HISTORY: 75 years-old Female pain, swelling acute pain of the pelvis and left hip COMPARISON: 11/07/2018 radiographs TECHNIQUE: AP view of the pelvis with 2 views of the left hip FINDINGS: Nonspecific soft tissue prominence is noted bilaterally. Surgical suture material the pelvis with bilateral iliac and right femoral stent grafts. Arterial calcifications. Mild osteoarthritis of the hips. No acute fracture, dislocation or avascular necrosis. IMPRESSION: No acute fracture or dislocation. ACT 112: Negative or not required by law. The above report was generated using voice recognition software. It may contain grammatical, syntax or spelling errors. Electronically signed by: Bran Cuevas M.D. 08/03/2021 8:06 PM Supervising Physician Co-Signing Physician Notes Attending addendum: I have physically seen this patient, have supervised the medical residents activities, and agree with the H&P unless as otherwise noted. Assessment and Plan: HFrEF exacerbation/atrial fibrillation/hypertension- The patient will be admitted to telemetry for serial cardiac enzymes, serial EKG's, cardiac rhythm monitoring and a 2-D echocardiogram with Dopplers. Given Bumex 1 mg IV in the ED, and we will continue Bumex 1 mg IV twice daily Follow serial BMP and magnesium levels Continue amiodarone, metoprolol succinate and potassium chloride Remaining orders and notations as noted Resident Activity Tracking Resident Involvement: Resident Care Provided Care Provided: Adult Hospital Medicine (1) Anemia Anemia type: unspecified type Qualified Code(s): D64.9 - Anemia, unspecified
[2021-08-03 21:56] LABS: Oxygen Saturation VBG < 60.0 %
[2021-08-03] MEDS ORDERED: ACETAMINOPHEN 500 MG TAB PO STA (22:40)
[2021-08-03] MEDS ORDERED: PRAMIPEXOLE DIHYDROCHLO 0.25 MG TAB PO ONE (23:13)
[2021-08-04] MEDS ORDERED: DICLOFENAC SOD 1% GEL 100 GM TUBE EXT PRN (00:12)
[2021-08-04] MEDS ORDERED: NITROGLYCERIN SL 0.4 MG/TAB TAB SL PRN (00:12)
[2021-08-04] MEDS ORDERED: NYSTATIN POWDER 15GM BTL EXT PRN (00:12)
[2021-08-04] MEDS ORDERED: ONDANSETRON INJ 2 MG/ML 2 ML VIAL IV PRN (00:12)
[2021-08-04 00:17] LABS: Base Excess ABG -6.5 mEq/L (-9-1.8); HCO3 ABG 17 mmol/L (19-24); PCO2 ABG 27 mmHg (35-46); PO2 ABG 89 mmHg (80-95); pH ABG 7.42 (7.35-7.45)
[2021-08-04 00:25] LABS: Allen Test Pos (Pos)
[2021-08-04 01:02] LABS: Appearance Urine Cloudy (Clear); Bacteria Urine Automated 1+ (Negative); Bilirubin Urine Negative (Negative); Blood Urine 1+ (Negative); Color Urine Yellow; Epithelial Cell Urine Auto >30 /lpf (0-5); Glucose Urine UA Negative (Negative); Ketones Urine Negative (Negative); Leukocyte Esterase Urine Trace (Negative); Nitrite Urine Positive (Negative); RBC Urine Automated 0-4 /hpf (0-4); Specific Gravity Urine 1.009 (1.000-1.030); Urobilinogen Urine Negative (Negative); pH Urine 7.5 (4.5-7.5)
[2021-08-04 01:08] LABS: Protein Urine 1+ (Negative)
[2021-08-04] MEDS ORDERED: MoRPHine SULFATE 2 MG/ML CARP IV STA (03:35)
[2021-08-04 06:24] LABS: Basophils # (auto) 0.05 K/uL (0-0.2); Basophils % (auto) 1.1 %; Eosinophils # (auto) 0.13 K/uL (0-0.5); Hematocrit (blood only) 32.5 % (37-47); Hemoglobin 9.9 g/dL (12.0-16.0); Immature Granulocytes # (auto) 0.01 K/uL (0.00-0.02); Immature Granulocytes % (auto) 0.2 %; Lymphocytes # (auto) 1.64 K/uL (1.2-3.4); Lymphocytes % (auto) 37.6 %; Mean Corpuscular Hemoglobin 24.3 pg (25-34); Mean Corpuscular Hgb Conc 30.5 g/dL (32-36); Mean Corpuscular Volume 79.7 fL (80-100); Mean Platelet Volume 10.7 fL (7.4-10.4); Monocytes # (auto) 0.43 K/uL (0.11-0.59); Monocytes % (auto) 9.9 %; Neutrophils % (auto) 48.2 %; Platelet Count 197 K/uL (130-400); RDW Coefficient of Variation 23.8 % (11.5-14.5); RDW Standard Deviation 67.3 fL (36.4-46.3); Red Blood Count 4.08 M/uL (4.2-5.4); White Blood Count 4.36 K/uL (4.8-10.8)
[2021-08-04 06:25] LABS: INR 1.7 (0.9-1.1); Prothrombin Time 16.7 Seconds (9.0-12.0)
[2021-08-04 06:49] LABS: Acanthocytes 1+; Anisocytosis Present; Hypochromasia Present
[2021-08-04 07:09] LABS: Albumin Globulin Ratio 0.5 (0.9-2); Albumin Level 2.1 gm/dl (3.4-5.0); BUN Creatinine Ratio 15.6 (10-20); Bilirubin,Total 1.2 mg/dl (0.2-1); Creatinine Clr Calc Pharmacy 31.7 ml/min; Est GFR (African American) 47.1 ml/min; Est GFR (Non-African American) 40.7 ml/min; Globulin 4.4 gm/dl (2.5-4.0); Magnesium 1.7 mg/dl (1.8-2.4); Potassium 3.9 mmol/L (3.5-5.1); Total Protein 6.5 gm/dl (6.4-8.2)
[2021-08-04] MEDS ORDERED: PRAMIPEXOLE DIHYDROCHLO 0.25 MG TAB PO SCH (09:00)
[2021-08-04] MEDS: BUMETANIDE 1 MG in SYRINGE 0 ML IV SCH ×2 (09:33→19:30)
[2021-08-04] MEDS: PANTOprazole 40 MG TAB PO SCH (09:34)
[2021-08-04] MEDS: POTASSIUM CHLORIDE CRTAB 20 MEQ TABCR PO SCH (09:35)
[2021-08-04] MEDS: METOPROLOL SUCC 25MG EXT REL TAB PO SCH ×2 (09:35→22:39)
[2021-08-04] MEDS: GABAPENTIN 400 MG CAP PO SCH ×3 (09:36→22:51)
[2021-08-04] MEDS: HEPARIN SOD 5,000 UNIT/0.5 ML VIAL SQ SCH ×2 (09:37→22:50)
[2021-08-04] MEDS: ATORVASTATIN 40 MG TAB PO SCH (09:37)
--- NOTE | 2021-08-04 17:01 | XCELERA ---
[id number]
--- NOTE | 2021-08-04 17:39 | Hospitalist Progress Note ---
Date of Service August 04, 2021 Assessment & Plan (1) HFrEF (heart failure with reduced ejection fraction): Plan: 75-year-old female with an extensive vascular history including coronary artery disease, peripheral arterial disease status post femoral-tibial bypass, CHF with EF 40-45 (November 2020) who is being admitted for hypoxia secondary to acute CHF exacerbation. CHF Exacerbation: - Largely seems due to noncompliance with medications and diet - salt loaded diet and not taking Bumex due to urinary frequency - Echo with significant changes compared to November 2020 -- EF now 15-20%; akinesis of the septum, apex, mid anteroseptum, mid to distal anterior, and mid to distal inferior meraz, global hypokinesis; moderately dilated R ventricle with severely reduced systolic function; severe biatrial dilation; sclerotic aortic valve without significant stenosis; mod mitral and tricuspid regurg; trace pericardial effusion proBNP 22,000; also with elevated LFTs which is likely in setting of hepatic congestion; and evidence of pleural effusion -- Has been on RA even with pleural effusion - can monitor with diuresis, so no urgent indication to consider thoracentesis at this time. However fluid largely on the L side and fluid may be beneficial for testing -- CXR with small/moderate L pleural effusion with L basilar consolidation suggestive of atelectasis vs PNA - favor atelectasis over PNA but will monitor for any fevers/infectious signs - Continue Bumex 1 mg IV BID and monitor I&Os - currently -1.1 L -- CHF clinic note from March 2021 - dry weight suspected to be approx. 120- 125 - currently about 10 lbs up - Continue Metoprolol 12.5 mg BID - may benefit from further titration if blood pressure allows - Was supposed to F/U with CHF clinic but patient states her didn't want her too - patient admits herself and her are unable to care for themselves at home and would not mind placement but her was not willing to share financial information to assist; family has voiced frustration as they have tried to help but patient/ largely unwilling to cooperate - [facility] has been called - Would benefit from cardiology consultation/CHF clinic but patient is stable and actively diuresing and could consult for Monday Paroxysmal Atrial Fibrillation: Not anticoagulated; per chart review appears that she was on 5 mg of Eliquis twice daily in April but then was admitted to the hospital for severe epistaxis at which time Eliquis was held. Decision to restart Eliquis was delayed to follow-up to ENT visit however it was not restarted at the follow-up. Vascular surgery report from June 2021 does not mention restarting the anticoagulation. [id number]: 5, moderate to high risk for stroke; Has bled score: 2 to 3 points, moderate risk for major bleeding INR 1.7 (suspect in setting of some hepatic compromise given ongoing volume overload/hepatic congestion - no signs of bleeding currently - Amiodarone was held on admission due to question of toxicity but suspect LFTs may be more due to volume overload status - given her significant reduced EF Amio may be beneficial as she could be at risk for ventricular arrhythmias and monitor and can discuss with cardiology as this could also cause from chronic issues with respiratory issues (pneumonitis) -- However it looks like last fill was in December for only 90s days - may need a better med rec and see what the patient is truly taking but previous notes state her son used to do her meds so uncertain she could tell us Lactic acidosis Lactate of 4.9 initially, down to 3.9 and will recheck in AM No signs of infection, normal WBC count/slightly low, afebrile, normotensive, bradycardic Suspect secondary to poor forward flow/possibly worsened ejection fraction in the setting of CHF exacerbation New TTE as above Transaminitis: AST 173, ALT 101, alk phos 122 - trending down and suspect hepatic congestion No history of cirrhosis or hepatic injury. CTA abdomen/aorta with runoff and 2020 noted fatty liver Daily CMP Elevated TSH: - TSH 20 with normal T4 - May be worth repeating near end of hospitalization as it could be a reactive elevation and then in 4-6 weeks Acute Kidney Injury Superimposed on Chronic Kidney Disease Stage II-III Mild - Creatinine 1.32, baseline approximately 0.8-1 Daily BMP, monitor creatinine with IV Bumex COPD Continue home inhalers Restless leg syndrome Continue pramipexole nightly Continue gabapentin 400 TID Peripheral artery disease status post femoral-tibial bypass Continue statin Not currently on any antiplatelet agents. See above has-bled score in setting of severe epistaxis requiring hospital admission Ambulatory dysfunction Secondary to ongoing sacroiliitis and generalized weakness and decline; also due to lower extremity edema -- has had multiple falls nearly daily this week PT OT ruchi's Case management consult placed for complex placement - OOA called as it seems unsafe living environment -- was placed on hospice but appears more related to wanting to leave [facility] AMA and they knew he had no resources; patient reports she thinks she needs to be placed and knows she can't take care of herself (2) Paroxysmal atrial fibrillation: (3) Acute kidney injury: (4) RLS (restless legs syndrome): (5) Peripheral arterial disease: Plan: - Continue diuresis - Appreciate case management assistance - appreciate OOA assistance Admission and Anticipated Discharge Date Admission Date: August 03, 2021 Subjective Only complaining of bilateral leg pain which she states is chronic but has worsened with the leg swelling. She has a lot of pitting edema and is beginning to diurese. She reports no SOB at rest but states her heavy legs makes walking difficult which then makes her cough which then causes SOB. Then her legs give out and she falls. She admits that she cannot care for herself at home. She also endorses eating a lot of processed foods/deli meats. She is noncompliant with her Bumex and states her does not want her going to the CHF clinic. Review of Systems Review of Systems: All systems reviewed & are unremarkable except as noted in Subjective Physical Exam Physical Exam: PHYSICAL EXAM General Appearance: Elderly female in NAD who is A&O x 3 HEENT: Head is normocephalic/atraumatic; Hearing grossly intact; Mucous membranes moist Neck: Supple; Trachea midline Heart: RRR with no M/G/R Lungs: Crackles b/l bases but overall good aeration; Respirations unlabored; Neg accessory muscle use Abdomen: Soft, non-tender, non-distended; Positive BS x 4 quadrants Extremities: Neg cyanosis; + edema 4+ pitting to hips - LLE seems more pronounced Neurological: Speech clear; Gross motor/sensory function intact; Neg focal neurologic deficits Psychiatric: Appropriate mood/affect Skin: Normal Color; Warm/Dry PG Care Time/CCT Total # of Minutes Spent Total Time Spent with Patient: Total time spent is greater than 50% in coordination of care (as documented) at patient's floor/unit and/or counseling patient: Coding Level of Care Code 66963 Subseq Hosp Care Lvl 3 Diagnoses HFrEF (heart failure with reduced ejection fraction) I50.20 Paroxysmal atrial fibrillation I48.0 Acute kidney injury N17.9 RLS (restless legs syndrome) G25.81 Peripheral arterial disease I73.9
--- NOTE | 2021-08-04 21:32 | Billing Data ---
Date of Service August 04, 2021 Coding Level of Care Code 26570 Initial Inpt Care Lvl 3
[2021-08-04] MEDS: PRAMIPEXOLE DIHYDROCHLO 0.25 MG TAB PO SCH (21:40)
[2021-08-05] MEDS: ACETAMINOPHEN 325 MG TAB PO PRN ×2 (02:00→22:31)
--- NOTE | 2021-08-05 06:15 | Electrocardiogram Report ---
Test Reason : Blood Pressure : / mmHG Vent. Rate : 058 BPM Atrial Rate : 058 BPM P-R Int : 206 ms QRS Dur : 128 ms QT Int : 500 ms P-R-T Axes : 051 133 -55 degrees QTc Int : 490 ms Poor data quality, interpretation may be adversely affected Sinus bradycardia Left bundle branch block Abnormal ECG When compared with ECG of 14-NOV-2020 09:24, Left bundle branch block is now Present Confirmed by Betito Akers ([id number]) on 08/05/2021 6:15:20 AM Referred By: REFERRED SELF Confirmed By:Betito Akers
[2021-08-05] MEDS: GABAPENTIN 400 MG CAP PO SCH ×2 (07:46→15:12)
[2021-08-05] MEDS: POTASSIUM CHLORIDE CRTAB 20 MEQ TABCR PO SCH (07:47)
[2021-08-05] MEDS: PANTOprazole 40 MG TAB PO SCH (07:47)
[2021-08-05] MEDS: HEPARIN SOD 5,000 UNIT/0.5 ML VIAL SQ SCH ×2 (07:47→20:05)
[2021-08-05] MEDS: ATORVASTATIN 40 MG TAB PO SCH (07:48)
[2021-08-05] MEDS: METOPROLOL SUCC 25MG EXT REL TAB PO SCH ×2 (07:54→20:02)
[2021-08-05 08:03] LABS: Hematocrit (blood only) 31.1 % (37-47); Hemoglobin 9.7 g/dL (12.0-16.0); Mean Corpuscular Hemoglobin 24.6 pg (25-34); Mean Corpuscular Hgb Conc 31.2 g/dL (32-36); Mean Corpuscular Volume 78.7 fL (80-100); Mean Platelet Volume 10.3 fL (7.4-10.4); Platelet Count 189 K/uL (130-400); RDW Coefficient of Variation 23.7 % (11.5-14.5); RDW Standard Deviation 66.9 fL (36.4-46.3); Red Blood Count 3.95 M/uL (4.2-5.4); White Blood Count 4.36 K/uL (4.8-10.8)
[2021-08-05 08:30] LABS: Albumin Level 1.7 gm/dl (3.4-5.0); Calcium 8.1 mg/dl (8.5-10.1); Creatinine Clr Calc Pharmacy 33.5 ml/min; Est GFR (African American) 52.4 ml/min; Est GFR (Non-African American) 45.3 ml/min; Potassium 3.4 mmol/L (3.5-5.1)
[2021-08-05 08:33] LABS: Albumin Globulin Ratio 0.4 (0.9-2); Bilirubin,Total 1.1 mg/dl (0.2-1); Globulin 3.8 gm/dl (2.5-4.0); Total Protein 5.5 gm/dl (6.4-8.2)
[2021-08-05] MEDS ORDERED: POTASSIUM CHLORIDE CRTAB 20 MEQ TABCR PO STA (08:48)
--- NOTE | 2021-08-05 09:40 | XRay Report ---
XR chest 1V portable CLINICAL HISTORY: post diuresis COMPARISON STUDY: Chest CT November 21, 2020. Chest radiograph August 03, 2021. FINDINGS: There is no pneumothorax. Small to moderate left pleural effusion is similar to prior exam. Associated left basilar opacity. Note is made of cardiomegaly. Mild interstitial thickening persists . The appearance of the chest is unchanged. IMPRESSION: 1. No significant change in a small to moderate left pleural effusion. 2. Stable mild nonspecific interstitial thickening. ACT 112: Negative or not required by law. Electronically signed by: Fran Cisse M.D. 08/05/2021 9:39 AM
[2021-08-05] MEDS: VALSARTAN/SACUBITRIL 26/24MG TAB PO SCH ×2 (10:08→20:05)
[2021-08-05] MEDS: BUMETANIDE 1 MG in SYRINGE 0 ML IV SCH ×2 (10:08→16:55)
[2021-08-05] MEDS ORDERED: INFLUENZA VACCINE HIGH DOSE PF 65+ 0.7 ML SYR IM ONE (10:49)
--- NOTE | 2021-08-05 12:42 | Hospitalist Progress Note ---
Date of Service August 05, 2021 Assessment & Plan (1) CHF (congestive heart failure): Plan: Patient hospitalized on 08/03 with acute uncompensated CHF BNP was 22,702 and she had radiographic evidence of pulmonary vascular congestion Up until this point, she has been diuresed with IV Bumex 1 mg twice a day (typically takes 1 mg p.o. daily) Has been showing favorable response. Fluid balance is not accurate as incontinent but she is down 10 pounds from admission Echocardiogram done in November showed an EF of 45 to 50%. Was repeated yesterday showing significantly reduced EF of 15 to 20% with akinesis of the septum, apex, and anterior septum along with mid to distal inferior and anterior wall akinesis. Moderate MR and moderate TR. Patient is on beta-blockade. Ideally would uptitrate this given the LV dysfunction but heart rate will not tolerate (currently 56) Did have a lengthy discussion with patient regarding the severe LV dysfunction and recommendations for further cardiac evaluation including cardiac catheterization. She declines. In addition lengthy discussion regarding LifeVest and transition to ICD. Also declines Patient reports that she wants no heroic/aggressive measures. She is okay with medication management but otherwise declines any further aggressive management Consult palliative care Patient does have known peripheral arterial disease. I would suspect she has underlying coronary artery disease but again declines cardiac catheterization. In addition, she does admit to a longstanding history of alcohol use. I suspect that the LV dysfunction may be multifactorial CHF seems to be clinically compensated at this point. Transition IV Bumex back to p.o. (at 2 mg daily as opposed to 1 mg as she was taking prior to this hospitalization) Patient on beta-blockade but intolerant to up titration We will trial Entresto if BP will tolerate Otherwise, goal is symptom management (2) LV dysfunction: Plan: EF of 15 to 20% Likely multifactorial (has known PAD. Declines cardiac catheterization to further evaluate for ischemic heart disease. Does have a longstanding history of alcohol abuse so may have a component of nonischemic cardiomyopathy At any rate, declines further evaluation Maximize disease modifying medications as her heart rate and blood pressure will tolerate (on beta-blockade and Bumex. Add Entresto) Also add aspirin. She has known peripheral arterial disease and should be on antiplatelet therapy (3) Hypokalemia: Plan: Supplement (4) Transaminitis: Plan: Downtrending Likely multifactorial Patient with a longstanding history of alcohol abuse. May have underlying cirrhosis Likely had a component of passive venous congestion from CHF (5) Hypothyroid: Plan: TSH 20 upon presentation Free T4 low level of normal at 0.9. Total T3 missing Will add total T3 and initiate Synthroid (given likelihood of underlying coronary disease and known vasculopathy) We will need follow-up TSH in 6 to 8 weeks (6) Alcohol use: Plan: Longstanding history of alcohol abuse. Patient reports that she has cut back significantly. Drinks 2 beer a day at present Has been in the hospital since 08/03 and currently denies S/S withdrawal Not ideal but would want to avoid acute alcohol withdrawal at this point. Have ordered as needed beer if patient desires/needs (7) Paroxysmal atrial fibrillation: Plan: Currently appears to be in a normal sinus rhythm on exam with controlled ventri cular rate Is not on anticoagulation therapy as severe epistaxis noted from Eliquis in the past [id number]: 5, moderate to high risk for stroke; Has bled score: 2 to 3 points, moderate risk for major bleeding (8) COPD (chronic obstructive pulmonary disease): Plan: Former smoker. Quit in March No evidence of acute exacerbation at this time (9) Acute kidney injury: Plan: Resolved Creatinine slightly elevated at 1.3 upon admission. Down to 1.18 Likely component of cardiorenal syndrome that has improved with diuresis Monitor closely (10) Peripheral arterial disease: Plan: Patient takes chronic statin therapy Add aspirin as outlined above Plan: Plan of care will be discussed with Dr. Gupta. Further orders as warranted. Admission and Anticipated Discharge Date Admission Date: August 03, 2021 Subjective Patient seen on daily rounds today. Still receiving IV diuresis. Overall feels "better". Denies orthopnea, PND, cough. Denies fevers, chills, chest pain, shortness of breath, abdominal pain, nausea or vomiting. Her biggest complaint today is that her breakfast is going to get cold if I do not "hurry along". Nursing voices no complaints or concerns Review of Systems Review of Systems: All systems reviewed and are unremarkable except as noted in HPI and below Denies fevers, chills, headache, nasal congestion, sore throat, cough, chest pain, shortness of breath, palpitations, orthopnea, PND, abdominal pain, nausea, vomiting, diarrhea, constipation, dysuria, hematuria, frequency, back pain, joint pain or swelling, easy bruising or bleeding, skin lesions or rashes. Physical Exam Physical Exam: General: Resting comfortably in his/her hospital bed. NAD. HEENT: Head is AT/NC buccal mucosa is moist and pink Neck: No significant JVD.] And only mild hepatojugular reflex Cardiac: RRR with 1/6 to 2/6 PRAVEEN Lungs: Speaking full sentences on ambient air. No conversational dyspnea. Breathing is nonlabored. clear to auscultation without wheezes, rales or rhonchi Abdomen: Normoactive X4. Soft and nontender in all quadrants. Extrem : No peripheral clubbing cyanosis or edema Neuro: A&O X4 cranial nerves II through XII are grossly intact no focal neuro deficits Skin: No obvious skin lesions or rashes Psych: Appropriate affect pleasant and cooperative Results & Data Results & Data ([facility]) Vital Signs (Past 12 Hours) Vital Signs Temp Pulse Pulse Pulse Resp BP Pulse Ox 08/05/21 07:55 36.4 C L 56 L 123/57 L 97 08/05/21 02:42 36.4 C L 60 17 130/70 94 08/05/21 02:06 70 Laboratory Results 08/05/21 07:44 08/05/21 07:48 TB: 1.1 AST: 103 ALT: 66 Diagnostic Findings Echocardiogram performed-- see below PG Care Time/CCT Total # of Minutes Spent Total Time Spent with Patient: Total time spent is greater than 50% in coordination of care (as documented) at patient's floor/unit and/or counseling patient: Coding Level of Care Code 44838 Subseq Hosp Care Lvl 3 Diagnoses CHF (congestive heart failure) I50.23 Heart failure chronicity: acute on chronic Heart failure type: systolic LV dysfunction I51.9 Hypokalemia E87.6 Alcohol use Z72.89 Paroxysmal atrial fibrillation I48.0 COPD (chronic obstructive pulmonary disease) J44.9 Transaminitis R74.01 Hypothyroid E03.9 Acute kidney injury N17.9 Peripheral arterial disease I73.9 (1) CHF (congestive heart failure) Heart failure chronicity: acute on chronic Heart failure type: systolic Qualified Code(s): I50.23 - Acute on chronic systolic (congestive) heart failure
[2021-08-05] MEDS ORDERED: BEER 1 CAN PO PRN (12:46)
[2021-08-05] MEDS ORDERED: bisacodyL 10 MG SUPP PR STA (16:39)
[2021-08-05] MEDS ORDERED: POLYETHYLENE (MIRALAX) 17 GM PACK PO PRN (16:39)
[2021-08-05] MEDS ORDERED: GABAPENTIN 100 MG CAP PO STA (17:08)
[2021-08-05] MEDS: GABAPENTIN 300 MG CAP PO SCH (20:01)
[2021-08-05] MEDS: PRAMIPEXOLE DIHYDROCHLO 0.25 MG TAB PO SCH (20:04)
[2021-08-06] MEDS: LORazepam 1 MG TAB PO PRN ×3 (01:34→21:29)
[2021-08-06 05:42] LABS: Hemoglobin 10.2 g/dL (12.0-16.0); Mean Corpuscular Hemoglobin 24.2 pg (25-34); Mean Corpuscular Hgb Conc 30.9 g/dL (32-36); Mean Corpuscular Volume 78.2 fL (80-100); Mean Platelet Volume 9.9 fL (7.4-10.4); Platelet Count 192 K/uL (130-400); RDW Coefficient of Variation 23.9 % (11.5-14.5); RDW Standard Deviation 66.9 fL (36.4-46.3); Red Blood Count 4.22 M/uL (4.2-5.4)
[2021-08-06 06:12] LABS: Albumin Level 1.6 gm/dl (3.4-5.0); BUN Creatinine Ratio 13.5 (10-20); Calcium 7.9 mg/dl (8.5-10.1); Creatinine Clr Calc Pharmacy 32.6 ml/min; Est GFR (African American) 50.9 ml/min; Est GFR (Non-African American) 43.9 ml/min; Magnesium 1.3 mg/dl (1.8-2.4); Potassium 3.2 mmol/L (3.5-5.1)
[2021-08-06 06:15] LABS: Albumin Globulin Ratio 0.4 (0.9-2); Bilirubin,Total 0.9 mg/dl (0.2-1); Globulin 3.7 gm/dl (2.5-4.0); Total Protein 5.3 gm/dl (6.4-8.2)
[2021-08-06] MEDS ORDERED: POTASSIUM CHLORIDE CRTAB 20 MEQ TABCR PO STA (07:56)
[2021-08-06] MEDS: LEVOTHYROXINE SODIUM 25 MCG TABLET PO SCH (08:31)
[2021-08-06] MEDS: ATORVASTATIN 40 MG TAB PO SCH (08:32)
[2021-08-06] MEDS: GABAPENTIN 300 MG CAP PO SCH ×3 (08:33→21:31)
[2021-08-06] MEDS: METOPROLOL SUCC 25MG EXT REL TAB PO SCH ×2 (08:33→21:30)
[2021-08-06] MEDS: HEPARIN SOD 5,000 UNIT/0.5 ML VIAL SQ SCH ×2 (08:33→21:30)
[2021-08-06] MEDS: VALSARTAN/SACUBITRIL 26/24MG TAB PO SCH (08:34)
[2021-08-06] MEDS: ACETAMINOPHEN 325 MG TAB PO PRN ×2 (08:34→15:19)
[2021-08-06] MEDS: PANTOprazole 40 MG TAB PO SCH (08:34)
[2021-08-06] MEDS ORDERED: BUMETANIDE 1 MG TAB PO SCH (09:00)
[2021-08-06] MEDS: MAGNESIUM SULFATE / D5W 1 GM/100 ML BAG IV SCH ×3 (09:25→13:20)
--- NOTE | 2021-08-06 09:55 | Cardiology Consultation ---
Date of Consultation August 06, 2021 Assessment & Plan (1) Cardiomyopathy: (2) CHF (congestive heart failure): (3) Valvular heart disease: (4) Paroxysmal atrial fibrillation: 1. Cardiomyopathy: She was noted during her previous admission earlier this year to have some element of reduced LV systolic function with this appears to have progressed dramatically in the past 6 months. She appears to have biventricular dilation which is less suggestive of ischemic heart disease, but undoubtedly has an element coronary disease in addition to her peripheral vascular disease. At some point she will need an evaluation for ischemic heart disease. We could be a performed perfusion scanning or coronary angiography. She appears to have fairly poor peripheral access, and this could complicate an invasive study. We can debate the timing and nature of the evaluation based on her clinical course during this hospitalization. I think continuing daily aspirin and high-dose atorvastatin at this point is reasonable. She was started on Entresto. We will need to monitor her renal function and blood pressures closely. I think that there may be significant cost barriers to continued use of this medication. She will continue on metoprolol succinate. We can adjust the doses of these medications according to her response. She would likely also be a good candidate for an aldosterone antagonist. With respect to her risk of sudden cardiac , is certainly elevated given her degree of LV dysfunction. When she has been on medical therapy for a few months we can reassess her LV function and determine if a prophylactic ICD is still warranted. She does have a left bundle branch block morphology on her EKG which puts her in a category of patients who may benefit from cardiac resynchronization therapy. Overall QRS duration is somewhat narrow, attenuating any benefit. 2. Congestive heart failure: She has evidence of decompensated systolic heart failure. She was not compliant with her medical therapy and appear to be taking in a lot of sodium. She is affected a good diuresis here in the hospital. Will continue oral bumetanide monitoring her electrolytes and renal function closely. We will likely need to reduce the dose over the next couple of days based on her clinical response. Certainly improving overall. Diuresis and edema may be complicated by her severe hypoalbuminemia. 3. Valvular heart disease: She has evidence of significant mitral regurgitation. A lot of this may be functional based on her cardiomyopathy. No options for intervention other than treatment of her cardiomyopathy at this point. 4. Atrial fibrillation: She had an episode of atrial fibrillation earlier this year. No documented clinical recurrence. Amiodarone was stopped at this admission due to mild transaminitis. However, I do not believe this is likely a consequence of the amiodarone. Certainly her hypothyroidism could be a consequence. I think she would do very poorly if she reverted back to atrial fibrillation. Would recommend reinstitution of amiodarone and continued thyroid replacement. She also had severe epistaxis earlier this year. Her systemic anticoagulation was stopped at that time. She is certainly at high risk for thromboembolic events. I think we should restart Eliquis. If Eliquis is reinstituted, we could stop her daily aspirin. History of Present Illness Reason for Consultation: Congestive heart failure Requesting Physician: Candy Attending Physician: Mahesh Gupta MD History of Present Illness The patient is a 75-year-old woman with a history of peripheral vascular disease, tobacco abuse, COPD and atrial fibrillation who was brought to the hospital due to lower extremity weakness. It seems that over the past few months the patient has had more more difficulty with activity. This is manifest by weakness in the legs and difficulty with ambulation. The episode that prompted her admission involved being too weak to get up off of the floor. She apparently has difficulty ambulating even a few steps and after using the toilet can barely get off of the toilet. Additionally, she has significant breathing trouble. She has some element of baseline dyspnea but this has become progressive over the past few months as well. She now short of breath even with walking short distances. She has reported some dependent edema. She has episodes of dizziness which occur at rest. These do not result in syncope, and do not involve a sense of vertigo or palpitation. She has not had palpitations other than a sense that her heart is racing when she is active. She has not noticed lower extremity edema. Allergies Allergy/AdvReac Type Severity Reaction Status Date / Time Penicillins Allergy Intermediate Hives Verified 08/03/21 19:42 Home Medications Medication Instructions Recorded Confirmed Type cholecalciferol (vitamin D3) 25 5,000 unit PO QAM cap 08/11/20 08/03/21 History mcg (1,000 unit) capsule multivitamin with minerals 1 tab PO QAM 09/26/20 08/03/21 History calcium carbonate 500 mg (1,250 1 tab PO DAILY 12/08/20 08/03/21 History mg)-vitamin D3 200 unit tablet (Calcium 500 + D) amiodarone 200 mg tablet 200 mg PO DAILY 01/05/21 08/03/21 History diclofenac sodium 1 % topical gel 2 g TOPICAL QID PRN #2 g 02/19/21 08/03/21 Rx ipratropium 20 mcg-albuterol 100 1 puff INHALATION Q6H PRN 02/19/21 08/03/21 History mcg/actuation mist for inhalation (Combivent Respimat) metoprolol succinate 25 mg 12.5 mg PO BID #30 tab 02/19/21 08/03/21 Rx tablet,extended release 24 hr nystatin 100,000 unit/gram topical 1 applic TOPICAL DAILY PRN 02/19/21 08/03/21 History powder gabapentin 400 mg capsule 400 mg PO TID #90 cap 03/05/21 08/03/21 Rx pramipexole 0.125 mg tablet 0.125 mg PO DAILY #30 tab 03/05/21 08/03/21 Rx bumetanide 1 mg tablet 1 mg PO DAILY PRN #30 tab 04/01/21 08/03/21 Rx magnesium oxide 400 mg PO BID #30 tab 04/21/21 08/03/21 Rx atorvastatin 40 mg tablet 40 mg PO QAM #30 tab 04/22/21 08/03/21 Rx potassium chloride 20 mEq 40 meq PO DAILY #60 tab 06/14/21 08/03/21 Rx tablet,extended release(part/cryst) (Klor-Con M) omeprazole 40 mg capsule,delayed 40 mg PO DAILY #30 cap 06/28/21 08/03/21 Rx release Patient History Medical History Acute kidney injury Anemia chronic, baseline hgb 10's Arthritis Chronic reflux esophagitis controlled Depression Dyslipidemia Hypercalcemia Hypertension Hypokalemia LBBB (left bundle branch block) dating back to 08/2020 [place] EKG On apixaban therapy Osteopenia Peripheral arterial disease Bilateral Common Iliac Artery Stenting(Bilateral), Bilateral Femoral Artery Endarterectomy with Bovine Patch (08/2020) Peripheral neuropathy Pulmonary nodule per records, pt denies RLS (restless legs syndrome) Sleep apnea no device Vitamin D deficiency Surgical History H/O endarterectomy Bilateral Common Iliac Artery Stenting(Bilateral), Bilateral Femoral Artery Endarterectomy with Bovine Patch: 08/26/20: Grade 2 view, MAC 3.0, ETT 7.0 at [facility] History of appendectomy History of carpal tunnel release of both wrists History of colonoscopy History of tooth extraction Hx of hysterectomy S/P femoral-tibial bypass Family History (Updated 04/23/21 @ 13:29 by Patricia Zendejas) Mother Hypertension Father Hypertension Sister Hypertension Allergies Brother Hypertension Grandfather (Maternal) Heart disease Grandmother (Maternal) Heart disease Other No family history of adverse response to anesthesia No family history of bleeding disorder Social History (Updated 04/23/21 @ 13:28 by Patricia Zendejas) Smoking Status: Unknown if ever smoked Tobacco Type: Cigarettes Age Started Using Tobacco: 7; Cigarettes Per Day: 3; Second Hand Exposure: No; Hx Alcohol Use: No Hx Substance Use: No Preferred Language: Vietnamese Communication Ability: Effective Visual Impairment: No Limitations Hearing Ability: Hard of Hearing Seamer Panty Hose Required: No Beliefs That Will Affect Care: None marital status: Current Living Situation: Spouse Current Living Situation Comment: - Abdulaziz current occupational status: retired How many Children do You have: 1 Other Information That Helps Us Care for You: No Feels Safe at Home: Hesitant to Answer Assistive Devices: Glasses and Walker Review of Systems Review of Systems: Per HPI. She has persistent left hip pain. She has pain on both of her heels. Physical Exam Physical Exam: She is alert and oriented x3. Mood affect appear normal. She answered all questions appropriately. HEENT: Sclerae are anicteric. Pupils are equal and reactive to light and accommodation. Extraocular movements were intact. Neuro: Cranial nerves intact Lungs: Crackles at the bases bilaterally. Normal respiratory effort. Some prolonged expiratory phase. No expiratory wheezing. Cardiac: The rhythm was regular. S1 and S2 were normal. There are no murmurs on examination. The PMI was not markedly displaced on palpation. Abdomen: The abdomen was soft and nontender. Extremities: Patient has bilateral radial pulses that are equal in intensity. There is no evidence cyanosis or clubbing. There was no evidence of significant peripheral edema bilaterally. Dependent edema in both elbows. Skin: There are no rashes noted on examination today. Results & Data ([facility]) Vital Signs (Past 12 Hours) Vital Signs Temp Pulse Pulse Resp BP Pulse Ox 08/06/21 07:37 36.8 C 64 16 105/63 92 08/06/21 06:20 61 08/06/21 03:28 36.7 C 65 16 98/57 L 90 08/05/21 23:54 63 08/05/21 22:12 36.6 C 63 20 104/70 94 Laboratory Results Abnormal Lab Results 08/06/21 08/06/21 05:31 05:31 WBC 4.90 RBC 4.22 Hgb 10.2 L Hct 33.0 L MCV 78.2 L MCH 24.2 L MCHC 30.9 L RDW Std Deviation 66.9 H RDW Coeff of Janie 23.9 H Plt Count 192 MPV 9.9 Sodium 134 L Potassium 3.2 L Chloride 102 Carbon Dioxide 24 Anion Gap 8.0 BUN 16 Creatinine 1.22 H Est Cr Clr Drug Dosing 32.6 Est GFR ( Amer) 50.9 Est GFR (Non-Af Amer) 43.9 BUN/Creatinine Ratio 13.5 Glucose 93 Calcium 7.9 L Magnesium 1.3 L Total Bilirubin 0.9 AST 103 H ALT 63 Alkaline Phosphatase 91 Total Protein 5.3 L Albumin 1.6 L Globulin 3.7 Albumin/Globulin Ratio 0.4 L Diagnostic Findings Chest x-ray was obtained at the time of admission which revealed cardiomegaly and interstitial coarsening. Small to moderate left pleural effusion. Echocardiogram obtained on 08/04/2021: Ejection fraction 15-20%. Regional wall motion abnormalities involving mid to distal anterior and inferior meraz. Moderately dilated right ventricle with reduced systolic function. Severe biatrial dilation. Moderate mitral regurgitation. Echocardiogram obtained 11/14/2020: Ejection fraction 45-50%. Borderline LVH. No significant valvular pathology. PG Care Time/CCT Total # of Minutes Spent Total Time Spent with Patient: Total time spent is greater than 50% in coordination of care (as documented) at patient's floor/unit and/or counseling patient: Coding Level of Care Code 37005 Initial Inpt Care Lvl 3 Diagnoses Cardiomyopathy I42.9 CHF (congestive heart failure) I50.23 Heart failure chronicity: acute on chronic Heart failure type: systolic Valvular heart disease I38 Paroxysmal atrial fibrillation I48.0 (1) CHF (congestive heart failure) Heart failure chronicity: acute on chronic Heart failure type: systolic Qualified Code(s): I50.23 - Acute on chronic systolic (congestive) heart failure
[2021-08-06] MEDS ORDERED: SODIUM CHLORIDE 0.9% 1000ML 250 ML IV ONE ×2 (11:59→12:37)
[2021-08-06] MEDS: POTASSIUM CHLORIDE CRTAB 20 MEQ TABCR PO SCH (12:05)
[2021-08-06] MEDS: ASPIRIN 81 MG ECTAB PO SCH (12:06)
--- NOTE | 2021-08-06 14:36 | Hospitalist Progress Note ---
Date of Service August 06, 2021 Assessment & Plan (1) CHF (congestive heart failure): Plan: Patient hospitalized on 08/03 with acute uncompensated CHF BNP was 22,702 and she had radiographic evidence of pulmonary vascular congestion was diuresed with IV Bumex 1 mg twice a day (typically takes 1 mg p.o. daily) Has shown favorable response. Fluid balance is not accurate as incontinent but she is down 16 pounds from admission Echocardiogram done in November showed an EF of 45 to 50%. TTE repeated this hospital stay: significantly reduced EF of 15 to 20% with akinesis of the septum, apex, and anterior septum along with mid to distal inferior and anterior wall akinesis. Moderate MR and moderate TR. Patient on low dose BB (metoprolol 12.5mg BID). Ideally would uptitrate this given the LV dysfunction but heart rate will not tolerate (currently 56) lengthy D/W patient and her son regarding poor EF, need for further cardiac evaluation (?cath), life vest with subsequent conversion to ICD and she was not wanting anything done (was going to pursue palliative care); however, she has since changed her mind as "she is not ready to " Patient does have known peripheral arterial disease. I would suspect she has underlying CAD. In addition, she does admit to a longstanding history of alcohol use. I suspect that the LV dysfunction may be multifactorial (ischemic, ETOH abuse and right sided dysfunction from her COPD) CHF clinically compensated and her Bumex was transitioned from IV to oral (2 mg daily) and she was started on Entresto. Unfortunately, her blood pressure did not tolerate this (dropped to 70s/30s requiring small fluid bolus which she responded to) Entresto has since been stopped as BP will not tolerate Transition Bumex to 1 mg twice daily Discussed with Dr. Barreto (cardiology) who agrees with above as outlined. Feels patient does not need cardiac evaluation prior to discharge as this can be facilitated as an outpatient. Since BP did not tolerate Entresto, he recommends perhaps trialing her on a low-dose SAMY inhibitor (2) LV dysfunction: Plan: EF of 15 to 20% Likely multifactorial (has known PAD/vasculopathy-- suspect component of ischemic heart disease. Does have a longstanding history of alcohol abuse so may have a component of nonischemic cardiomyopathy. Also, Right sided disease from COPD) Seen by cardiology who recommends cardiac evaluation to further rule out ischemic disease but reports this can be done as an outpatient I did inquire about a LifeVest and patient has a lengthy history of noncompliance for financial reasons. Cardiology does not feel that a LifeVest should be utilized at this point Maximize disease modifying medications as her heart rate and blood pressure will tolerate Also add aspirin. She has known peripheral arterial disease and should be on antiplatelet therapy (already on high intensity statin) (3) Hypokalemia: Plan: continue supplementation (4) Transaminitis: Plan: Downtrending Likely multifactorial Patient with a longstanding history of alcohol abuse. May have underlying cirrhosis Likely had a component of passive venous congestion from CHF (5) Hypothyroid: Plan: TSH 20 upon presentation Free T4 low level of normal at 0.9. Total T3 PND Has since been started on Synthroid (given likelihood of underlying coronary disease and known vasculopathy) Will need follow-up TSH in 6 to 8 weeks (6) Alcohol use: Plan: Longstanding history of alcohol abuse. Patient reports that she has cut back significantly. Drinks 2 beer a day at present Has been in the hospital since 08/03 and currently denies S/S withdrawal monitor closely with Ativan prn (7) Paroxysmal atrial fibrillation: Plan: Currently appears to be in a normal sinus rhythm on exam with controlled ventricular rate Is not on anticoagulation therapy as severe epistaxis noted from Eliquis in the past [id number]: 5, moderate to high risk for stroke; Has bled score: 2 to 3 points, moderate risk for major bleeding (8) COPD (chronic obstructive pulmonary disease): Plan: Former smoker. Quit in March No evidence of acute exacerbation at this time (9) Acute kidney injury: Plan: Resolved Creatinine slightly elevated at 1.3 upon admission. Down to 1.2 Likely component of cardiorenal syndrome that has improved with diuresis Monitor closely (10) Peripheral arterial disease: Plan: Patient takes chronic statin therapy ASA added as outlined above (11) Debility: Plan: Patient reports decreased mobility ongoing for several weeks to months due to her shortness of breath with increasing dyspnea on exertion and edema of her lower extremities Staff encouraged to remove pure wick to encourage patient to get up and out of bed PT/OT on board and recommending acute rehab for which patient is agreeable Case management on board Plan: Plan of care D/W Dr. Gupta and Dr. Barreto Son (Romario) updated Admission and Anticipated Discharge Date Admission Date: August 03, 2021 Subjective Patient seen on the day. Vocalizes no significant complaints or concerns other than generalized weakness. Did not sleep well last evening but not because of her breathing. It was more than neuropathy in her legs (which is chronic) Unfortunately, blood pressure did not tolerate the addition of the Entresto this morning. Blood pressure dropped to 70 systolic requiring 500 cc fluid bolus. Subsequent blood pressure was 107 systolic. Patient was slightly dizzy/lighthea ded with this low blood pressure Currently denies fevers, chills, chest pain, shortness of breath, abdominal pain, nausea or vomiting. Has not experienced any acute alcohol withdrawal symptoms Review of Systems Review of Systems: All systems reviewed and are unremarkable except as noted in HPI and below Denies fevers, chills, headache, nasal congestion, sore throat, cough, chest pain, shortness of breath, palpitations, orthopnea, PND, abdominal pain, nausea, vomiting, diarrhea, constipation, dysuria, hematuria, frequency, back pain, joint pain or swelling, easy bruising or bleeding, skin lesions or rashes. Physical Exam Physical Exam: General: Resting comfortably in her hosptial bed. NAD. HEENT: Head is AT/NC buccal mucosa is moist and pink Neck: No JVD. Negative hepatojugular reflex Cardiac: RRR without M/G/R Lungs: CTA without W/R/R Abdomen: Normoactive X4. Soft and nontender in all quadrants. Extremities: No peripheral clubbing cyanosis or edema Neuro: A&O X4 cranial nerves II through XII are grossly intact no focal neuro deficits Skin: No obvious skin lesions or rashes Psych: Appropriate affect pleasant and cooperative Results & Data Results & Data ([facility]) Vital Signs (Past 12 Hours) Vital Signs Temp Pulse Pulse Resp BP BP Pulse Ox 08/06/21 13:00 97 H 104/58 L 08/06/21 12:29 97 H 74/53 L 08/06/21 11:56 83 71/50 L 08/06/21 11:37 36.7 C 62 18 85/45 L 95 08/06/21 07:37 36.8 C 64 16 105/63 92 08/06/21 06:20 61 08/06/21 03:28 36.7 C 65 16 98/57 L 90 Laboratory Results 08/06/21 05:31 08/06/21 05:31 PG Care Time/CCT Total # of Minutes Spent Total Time Spent with Patient: Total time spent is greater than 50% in coordination of care (as documented) at patient's floor/unit and/or counseling patient: Coding Level of Care Code 27158 Subseq Hosp Care Lvl 2 Diagnoses CHF (congestive heart failure) I50.23 Heart failure chronicity: acute on chronic Heart failure type: systolic LV dysfunction I51.9 Hypokalemia E87.6 Transaminitis R74.01 Hypothyroid E03.9 Alcohol use Z72.89 Paroxysmal atrial fibrillation I48.0 COPD (chronic obstructive pulmonary disease) J44.9 Acute kidney injury N17.9 Peripheral arterial disease I73.9 Debility R53.81 (1) CHF (congestive heart failure) Heart failure chronicity: acute on chronic Heart failure type: systolic Qualified Code(s): I50.23 - Acute on chronic systolic (congestive) heart failure
[2021-08-06] MEDS: PRAMIPEXOLE DIHYDROCHLO 0.25 MG TAB PO SCH (21:32)
[2021-08-07] MEDS: LEVOTHYROXINE SODIUM 25 MCG TABLET PO SCH (05:34)
[2021-08-07 08:29] LABS: Hematocrit (blood only) 37.1 % (37-47); Hemoglobin 11.5 g/dL (12.0-16.0); Mean Corpuscular Hemoglobin 24.4 pg (25-34); Mean Corpuscular Volume 78.8 fL (80-100); Mean Platelet Volume 10.1 fL (7.4-10.4); Platelet Count 193 K/uL (130-400); RDW Standard Deviation 69.1 fL (36.4-46.3); Red Blood Count 4.71 M/uL (4.2-5.4); White Blood Count 4.92 K/uL (4.8-10.8)
[2021-08-07 08:57] LABS: Albumin Level 1.6 gm/dl (3.4-5.0); BUN Creatinine Ratio 15.8 (10-20); Calcium 7.7 mg/dl (8.5-10.1); Creatinine Clr Calc Pharmacy 32.1 ml/min; Est GFR (African American) 56.4 ml/min; Est GFR (Non-African American) 48.7 ml/min; Magnesium 1.8 mg/dl (1.8-2.4); Potassium 3.3 mmol/L (3.5-5.1)
[2021-08-07] MEDS: ATORVASTATIN 40 MG TAB PO SCH (08:58)
[2021-08-07] MEDS: ASPIRIN 81 MG ECTAB PO SCH (08:58)
[2021-08-07] MEDS: PANTOprazole 40 MG TAB PO SCH (08:59)
[2021-08-07] MEDS: GABAPENTIN 300 MG CAP PO SCH ×3 (08:59→21:54)
[2021-08-07] MEDS: POTASSIUM CHLORIDE CRTAB 20 MEQ TABCR PO SCH (09:00)
[2021-08-07] MEDS ORDERED: BUMETANIDE 1 MG TAB PO SCH (09:00)
[2021-08-07 09:02] LABS: Albumin Globulin Ratio 0.4 (0.9-2); Bilirubin,Total 1.1 mg/dl (0.2-1); Globulin 3.7 gm/dl (2.5-4.0); Total Protein 5.3 gm/dl (6.4-8.2)
[2021-08-07] MEDS ORDERED: POTASSIUM CHLORIDE CRTAB 20 MEQ TABCR PO STA ×2 (09:07→09:11)
[2021-08-07] MEDS ORDERED: SODIUM CHLORIDE 0.9% 500 ML IV SCH (09:15)
[2021-08-07] MEDS: HEPARIN SOD 5,000 UNIT/0.5 ML VIAL SQ SCH ×2 (09:15→21:55)
--- NOTE | 2021-08-07 10:30 | Ultrasound Report ---
ULTRASOUND RIGHT UPPER QUADRANT ABDOMEN CLINICAL HISTORY: Abnormal liver function studies. COMPARISON STUDY: Abdominal CT dated 08/29/2020. TECHNIQUE: Real-time, grayscale, and color flow sonography of the right upper quadrant of the abdomen was performed. Images are reviewed in the transverse and longitudinal planes. FINDINGS: Liver: The liver is normal in size and demonstrates heterogeneously increased echotexture consistent with hepatic steatosis. There is no intrahepatic biliary ductal dilatation. The main portal vein is p atent. A calcified granuloma is seen in the right lobe. Gallbladder: There are small shadowing gallstones. The gallbladder is otherwise normal in appearance and decompressed. There is no gallbladder wall thickening or pericholecystic fluid. A sonographic Mur phy's sign is reportedly absent. The common bile duct measures up to 0.8 cm in diameter. Pancreas: Not visualized due to overlying bowel gas. Right kidney: Survey images of the right kidney demonstrate mild cortical atrophy. Echotexture is nor mal. There is no hydronephrosis. Ascites: There is a small amount of perihepatic ascites. Pleural spaces: A right pleural effusion is noted. IMPRESSION: 1. Hepatic steatosis. 2. Cholelithiasis without sonographic evidence of acute cholecystitis. 3. Small volume of upper abdominal ascites and small right pleural effusion. 4. Nonvisualization of the pancreas. ACT 112: Negative or not required by law. Electronically signed by: Eulalio Gresham M.D. 08/07/2021 10:28 AM
--- NOTE | 2021-08-07 11:45 | Cardiology Progress Note ---
Date of Service August 07, 2021 Assessment & Plan (1) Cardiomyopathy: (2) CHF (congestive heart failure): (3) Valvular heart disease: (4) Paroxysmal atrial fibrillation: Plan: 1. Cardiomyopathy: She continues on metoprolol succinate. Her blood pressure has been on the lower side and she did not tolerate Entresto. she may not be a good candidate for additional agents based on her relative hypotension. Perhaps with better nutrition and stabilization of her volume status will have another opportunity to try more aggressive therapy. Overall, her prognosis appears quite poor. I think we will have significant difficulty affecting a more aggressive regimen for her Cardiomyopathy. I think there are social and financial barriers to optimal care as well. She should have an evaluation of her coronaries. She has significant peripheral vascular disease and this may compromise our ability to perform angiography. Will need to discuss more aggressive therapy and the risks associated with intervention with the patient and her when available. 2. Congestive heart failure: She seems better compromised today. She still has edema, but this is mostly dependent and likely related to her hypoalbuminemia. She was administered some volume yesterday due to mild hypotension. I think we can monitor her volume status and respiratory status closely at this point. No schedule diuresis. 3. Valvular heart disease: She has evidence of significant mitral regurgitation. A lot of this may be functional based on her cardiomyopathy. No options for intervention other than treatment of her cardiomyopathy at this point. 4. Atrial fibrillation: In sinus rhythm. I will restart her amiodarone. She has a history of epistaxis. I will discuss reinstituting anticoagulation with the patient in her family. Admission and Anticipated Discharge Date Admission Date: August 03, 2021 Subjective this morning the patient had some pain in her feet. She did not describe pain elsewhere. She did not describe breathing trouble. No sense of palpitations. She has not been ambulatory. she admitted to some confusion earlier. Review of Systems Review of Systems: Per HPI Physical Exam Physical Exam: She is alert and oriented x3. Mood affect appear normal. She answered all questions appropriately. HEENT: Sclerae are anicteric. Pupils are equal and reactive to light and accommodation. Extraocular movements were intact. Neuro: Cranial nerves intact Lungs: Clear apices. Normal respiratory effort. No expiratory wheezing. Cardiac: The rhythm was regular. S1 and S2 were normal. There are no murmurs on examination. The PMI was not markedly displaced on palpation. Extremities: Patient has bilateral radial pulses that are equal in intensity. There is no evidence cyanosis or clubbing. There was no evidence of significant peripheral edema bilaterally. Dependent edema in both elbows. Skin: There are no rashes noted on examination today. Ecchymosis. Results & Data ([facility]) Vital Signs (Past 12 Hours) Vital Signs Temp Pulse Pulse Pulse Resp BP Pulse Ox 08/07/21 09:11 96/55 L 08/07/21 08:06 64 08/07/21 07:33 36.5 C 75 18 98/64 L 93 08/07/21 03:38 36.4 C L 72 16 87/51 L 91 Laboratory Results Abnormal Lab Results 08/05/21 08/07/21 08/07/21 12:56 08:01 08:01 WBC 4.92 RBC 4.71 Hgb 11.5 L Hct 37.1 MCV 78.8 L MCH 24.4 L MCHC 31.0 L RDW Std Deviation 69.1 H RDW Coeff of Janie 24.0 H Plt Count 193 MPV 10.1 Sodium 136 Potassium 3.3 L Chloride 101 Carbon Dioxide 25 Anion Gap 9.0 BUN 18 Creatinine 1.12 Est Cr Clr Drug Dosing 32.1 Est GFR ( Amer) 56.4 Est GFR (Non-Af Amer) 48.7 BUN/Creatinine Ratio 15.8 Glucose 84 Calcium 7.7 L Magnesium 1.8 Total Bilirubin 1.1 H AST 101 H ALT 62 Alkaline Phosphatase 89 Total Protein 5.3 L Albumin 1.6 L Globulin 3.7 Albumin/Globulin Ratio 0.4 L Total T3 48 L Diagnostic Findings Chest x-ray was obtained at the time of admission which revealed cardiomegaly and interstitial coarsening. Small to moderate left pleural effusion. Echocardiogram obtained on 08/04/2021: Ejection fraction 15-20%. Regional wall motion abnormalities involving mid to distal anterior and inferior meraz. Moderately dilated right ventricle with reduced systolic function. Severe biatrial dilation. Moderate mitral regurgitation. Echocardiogram obtained 11/14/2020: Ejection fraction 45-50%. Borderline LVH. No significant valvular pathology. PG Care Time/CCT Total # of Minutes Spent Total Time Spent with Patient: Total time spent is greater than 50% in coordination of care (as documented) at patient's floor/unit and/or counseling patient: Coding Level of Care Code 60594 Subseq Hosp Care Lvl 3 Diagnoses Cardiomyopathy I42.9 CHF (congestive heart failure) I50.23 Heart failure chronicity: acute on chronic Heart failure type: systolic Valvular heart disease I38 Paroxysmal atrial fibrillation I48.0 (1) CHF (congestive heart failure) Heart failure chronicity: acute on chronic Heart failure type: systolic Qualified Code(s): I50.23 - Acute on chronic systolic (congestive) heart failure
--- NOTE | 2021-08-07 13:20 | Hospitalist Progress Note ---
Date of Service August 07, 2021 Assessment & Plan (1) CHF (congestive heart failure): Plan: Patient hospitalized on 08/03 with acute uncompensated CHF BNP was 22,702 and she had radiographic evidence of pulmonary vascular congestion Received Bumex 1 mg IV twice a day (typically takes 1 mg p.o. daily) with favorable response Converted to oral Bumex on 08/06 (2mg daily as was on 1mg daily [employer]) Echocardiogram done in November showed an EF of 45 to 50%. TTE repeated this hospital stay: significantly reduced EF of 15 to 20% with akinesis of the septum, apex, and anterior septum along with mid to distal inferior and anterior wall akinesis. Moderate MR and moderate TR. Patient on low dose BB (metoprolol 12.5mg BID). Ideally would uptitrate this given the LV dysfunction but heart rate will not tolerate (currently 56) lengthy D/W patient and her son regarding poor EF, need for further cardiac evaluation (?cath), life vest with subsequent conversion to ICD and she was not wanting anything done (was going to pursue palliative care); however, she has since changed her mind as "she is not ready to " Patient does have known peripheral arterial disease. I would suspect she has underlying CAD. In addition, she does admit to a longstanding history of alcohol use. I suspect that the LV dysfunction may be multifactorial (ischemic, ETOH abuse and right sided dysfunction from her COPD) on 08/06, started on Entreso (BP was 130/78 prior) unfortunately, her blood pressure did not tolerate this (dropped to 70s/30s requiring small fluid bolus which she responded to). Her Bumex was then transitioned from 2mg daily to 2mg bid (as it was thought that her BP would not tolerate the 2mg as a single dose) Entresto has been stopped BP remains marginal. Hold dose of Bumex today to allow patient to "catch up". I do not believe at this point that she requires 2 mg of Bumex. In talking with her and her son more at length, it is evident that she was not taking the 1 mg prescribed prior to this hospitalization Discussed with Dr. Barreto (cardiology) who agrees with above as outlined. Feels patient does not need cardiac evaluation prior to discharge as this can be facilitated as an outpatient. Since BP did not tolerate Entresto, he recommends perhaps trialing her on a low-dose SAMY inhibitor if BP will allow (2) LV dysfunction: Plan: EF of 15 to 20% Likely multifactorial (has known PAD/vasculopathy-- suspect component of ischemic heart disease. Does have a longstanding history of alcohol abuse so may have a component of nonischemic cardiomyopathy. Also, Right sided disease from COPD) Seen by cardiology who recommends cardiac evaluation to further rule out ischemic disease but reports this can be done as an outpatient I did inquire about a LifeVest and patient has a lengthy history of noncompliance for financial reasons. Cardiology does not feel that a LifeVest should be utilized at this point Maximize disease modifying medications as her heart rate and blood pressure will tolerate (but unfortunately, blood pressure has been very intolerant to this) Also add aspirin. She has known peripheral arterial disease and should be on antiplatelet therapy (already on high intensity statin) (3) Hypokalemia: Plan: continue supplementation (4) Transaminitis: Plan: Likely multifactorial Patient with a longstanding history of alcohol abuse. May have underlying cirrhosis--> obtain echo Likely had a component of passive venous congestion from CHF (5) Hypothyroid: Plan: TSH 20 upon presentation Free T4 low level of normal at 0.9. Total T3 PND Has since been started on Synthroid (given likelihood of underlying coronary disease and known vasculopathy) Will need follow-up TSH in 6 to 8 weeks (6) Alcohol use: Plan: Longstanding history of alcohol abuse. Patient reports that she has cut back significantly. Drinks 2 beer a day at present Has been in the hospital since 08/03 and currently denies S/S withdrawal prn ativan ordered PRN ETOH W/D and unfortunately was given by staff for insomnia lastnight resulting in hypersomnolence today. D/C [facility] [employer]! At this point, acute withdrawal unlikely as has been in the hospital x4 days now and stable (7) Paroxysmal atrial fibrillation: Plan: Currently appears to be in a normal sinus rhythm on exam with controlled ventricular rate Is not on anticoagulation therapy as severe epistaxis noted from [facility] in the past [id number]: 5, moderate to high risk for stroke; Has bled score: 2 to 3 points, moderate risk for major bleeding I have since started patient on aspirin (which she needs to be on anyway for her PAD and presumed underlying CAD) (8) COPD (chronic obstructive pulmonary disease): Plan: Former smoker. Quit in March No evidence of acute exacerbation at this time (9) Acute kidney injury: Plan: Resolved Creatinine slightly elevated at 1.3 upon admission. Down to 1.1 Monitor closely (10) Peripheral arterial disease: Plan: Patient takes chronic statin therapy ASA added as outlined above (11) Debility: Plan: Patient reports decreased mobility ongoing for several weeks to months due to her shortness of breath with increasing dyspnea on exertion and edema of her lower extremities PT/OT on board and recommending acute rehab for which patient is agreeable Case management on board Plan: Plan of care D/W Dr. Sanabria and Dr. Barreto attempted to call Son (Romario) Admission and Anticipated Discharge Date Admission Date: August 03, 2021 Subjective Patient seen on daily rounds today. Excessively somnolent this am. In review-- she has ativan ordered to be given PRN s/s ETOH withdrawal; however, staff gave it to help her sleep lastnight (2100). She has not been having an S/S ETOH withdrawal since her hospitalization. Her BP remains marginal (98/72). Did receive gentle fluids yesterday as her BP was low from the Entresto (which was stopped). Her am dose of bumex held yesterday morning but evening dose resumed. Pt is not dizzy or lightheaded. It was thought that she would need 2mg bumex daily (total) as she was on bumex 1mg daily [employer] and came in in uncompensated CHF. In further discussion with patient and her son, she was not taking the bumex. She denies F/C, CP, SOB, abd pain, N/V. Review of Systems Review of Systems: All systems reviewed and are unremarkable except as noted in HPI and below Denies fevers, chills, headache, nasal congestion, sore throat, cough, chest pain, shortness of breath, palpitations, orthopnea, PND, abdominal pain, nausea, vomiting, diarrhea, constipation, dysuria, hematuria, frequency, back pain, joint pain or swelling, easy bruising or bleeding, skin lesions or rashes. Physical Exam Physical Exam: General: Resting comfortably in her hospital bed. Excessively somnolent but arousable. NAD. HEENT: Head is AT/NC buccal mucosa is moist and pink Neck: No JVD. Negative hepatojugular reflex Cardiac: RRR with 2/6 PRAVEEN Lungs: CTA without W/R/R Abdomen: Normoactive X4. Soft and nontender in all quadrants. Extremities: No peripheral clubbing cyanosis or edema Neuro: A&O X4 cranial nerves II through XII are grossly intact no focal neuro deficits Skin: No obvious skin lesions or rashes Psych: Appropriate affect pleasant and cooperative Results & Data Results & Data ([facility]) Vital Signs (Past 12 Hours) Vital Signs Temp Pulse Pulse Pulse Resp BP BP 08/07/21 11:38 36.5 C 79 16 96/74 L 98/72 L 08/07/21 09:11 96/55 L 08/07/21 08:06 64 08/07/21 07:33 36.5 C 75 18 98/64 L 08/07/21 03:38 36.4 C L 72 16 87/51 L Pulse Ox 08/07/21 11:38 96 08/07/21 09:11 08/07/21 08:06 08/07/21 07:33 93 08/07/21 03:38 91 PG Care Time/CCT Total # of Minutes Spent Total Time Spent with Patient: Total time spent is greater than 50% in coordination of care (as documented) at patient's floor/unit and/or counseling patient: Coding Level of Care Code 27207 Subseq Hosp Care Lvl 3 Diagnoses CHF (congestive heart failure) I50.23 Heart failure chronicity: acute on chronic Heart failure type: systolic LV dysfunction I51.9 Hypokalemia E87.6 Transaminitis R74.01 Hypothyroid E03.9 Alcohol use Z72.89 Paroxysmal atrial fibrillation I48.0 COPD (chronic obstructive pulmonary disease) J44.9 Acute kidney injury N17.9 Peripheral arterial disease I73.9 Debility R53.81 (1) CHF (congestive heart failure) Heart failure chronicity: acute on chronic Heart failure type: systolic Qualified Code(s): I50.23 - Acute on chronic systolic (congestive) heart failure
[2021-08-07] MEDS: PRAMIPEXOLE DIHYDROCHLO 0.25 MG TAB PO SCH (21:53)
[2021-08-08] MEDS: LEVOTHYROXINE SODIUM 25 MCG TABLET PO SCH (05:16)
[2021-08-08] MEDS: AMIODARONE 200 MG TAB PO SCH (08:24)
[2021-08-08] MEDS: POTASSIUM CHLORIDE CRTAB 20 MEQ TABCR PO SCH (08:24)
[2021-08-08] MEDS: ATORVASTATIN 40 MG TAB PO SCH (08:24)
[2021-08-08] MEDS: GABAPENTIN 300 MG CAP PO SCH ×3 (08:25→20:41)
[2021-08-08] MEDS: HEPARIN SOD 5,000 UNIT/0.5 ML VIAL SQ SCH ×2 (08:25→20:32)
[2021-08-08] MEDS: PANTOprazole 40 MG TAB PO SCH (08:25)
[2021-08-08] MEDS: ASPIRIN 81 MG ECTAB PO SCH (08:25)
[2021-08-08 08:30] LABS: Hemoglobin 11.2 g/dL (12.0-16.0); Mean Corpuscular Hemoglobin 24.6 pg (25-34); Mean Corpuscular Hgb Conc 31.1 g/dL (32-36); Mean Corpuscular Volume 78.9 fL (80-100); Mean Platelet Volume 10.2 fL (7.4-10.4); Platelet Count 189 K/uL (130-400); RDW Coefficient of Variation 24.2 % (11.5-14.5); Red Blood Count 4.56 M/uL (4.2-5.4); White Blood Count 5.17 K/uL (4.8-10.8)
[2021-08-08 08:47] LABS: Albumin Level 1.8 gm/dl (3.4-5.0); BUN Creatinine Ratio 17.4 (10-20); Calcium 8.1 mg/dl (8.5-10.1); Creatinine Clr Calc Pharmacy 29.3 ml/min; Est GFR (African American) 50.4 ml/min; Est GFR (Non-African American) 43.5 ml/min; Magnesium 1.7 mg/dl (1.8-2.4); Potassium 3.7 mmol/L (3.5-5.1)
[2021-08-08 08:49] LABS: Albumin Globulin Ratio 0.5 (0.9-2); Globulin 3.8 gm/dl (2.5-4.0); Total Protein 5.6 gm/dl (6.4-8.2)
[2021-08-08] MEDS: CIPROFLOXACIN 250 MG TAB PO SCH ×2 (10:51→20:43)
[2021-08-08] MEDS: BUMETANIDE 1 MG TAB PO SCH (10:52)
--- NOTE | 2021-08-08 15:52 | Cardiology Progress Note ---
Date of Service August 08, 2021 Assessment & Plan (1) Cardiomyopathy: (2) CHF (congestive heart failure): (3) Valvular heart disease: (4) Paroxysmal atrial fibrillation: Plan: 1. Cardiomyopathy: She continues on metoprolol succinate. Is unclear if she will tolerate any additional therapy. Her blood pressure has remained low. I think we can simply continue metoprolol succinate and daily diuretic for the time being. 2. Congestive heart failure: She seems quite comfortable today. Review of her records suggest she has not affected a significant diuresis over the past day. However, she had an aggressive diuresis for the first couple days of her admission. At this point I think it is reasonable to continue her on a daily dose of bumetanide. 3. Valvular heart disease: She has evidence of significant mitral regurgitation. A lot of this may be functional based on her cardiomyopathy. No options for intervention other than treatment of her cardiomyopathy at this point. 4. Atrial fibrillation: In sinus rhythm. On amiodarone. Her overall prognosis seems quite poor. Our ability to affect any significant change in her degree of LV dysfunction may be limited both by her low blood pressure as well as social and financial issues. Medication compliance has been a problem in the past. I did have a discussion with the patient and her son yesterday regarding additional procedures. At the time he seemed in favor of coronary angiography, but I think we will have to be confident that she wants additional procedures and is willing to take medical therapy upon discharge. It seems the palliative care may visit with the patient and it will be important to see how aggressive we can be moving forward. Admission and Anticipated Discharge Date Admission Date: August 03, 2021 Subjective This afternoon the patient complained of foot pain. She did not have pain elsewhere. She denied breathing difficulty. She reported standing by the side of the bed but no ambulation. Did not describe dizziness. Review of Systems Review of Systems: Per [facility] Results & Data ([facility]) Vital Signs (Past 12 Hours) Vital Signs Temp Pulse Resp BP Pulse Ox 08/08/21 15:36 36.6 C 83 18 107/63 93 08/08/21 11:21 36.6 C 77 16 104/58 L 94 08/08/21 08:41 36.6 C 75 18 118/75 94 PG Care Time/CCT Total # of Minutes Spent Total Time Spent with Patient: Total time spent is greater than 50% in coordination of care (as documented) at patient's floor/unit and/or counseling patient: Coding Level of Care Code 24561 Subseq Hosp Care Lvl 2 Diagnoses Cardiomyopathy I42.9 CHF (congestive heart failure) I50.23 Heart failure chronicity: acute on chronic Heart failure type: systolic Valvular heart disease I38 Paroxysmal atrial fibrillation I48.0 (1) CHF (congestive heart failure) Heart failure chronicity: acute on chronic Heart failure type: systolic Qualified Code(s): I50.23 - Acute on chronic systolic (congestive) heart failure
--- NOTE | 2021-08-08 16:22 | Hospitalist Progress Note ---
Date of Service August 08, 2021 Assessment & Plan (1) CHF (congestive heart failure): Plan: Patient hospitalized on 08/03 with acute uncompensated CHF BNP was 22,702 and she had radiographic evidence of pulmonary vascular congestion Received Bumex 1 mg IV twice a day (typically takes 1 mg p.o. daily) with favorable response Converted to oral Bumex on 08/06 (2mg daily as was on 1mg daily CHARTER PILOT) Echocardiogram done in November showed an EF of 45 to 50%. TTE repeated this hospital stay: significantly reduced EF of 15 to 20% with akinesis of the septum, apex, and anterior septum along with mid to distal inferior and anterior wall akinesis. Moderate MR and moderate TR. Patient on low dose BB (metoprolol 12.5mg BID). Ideally would uptitrate this given the LV dysfunction but heart rate will not tolerate (was in the 50's) lengthy D/W patient and her son regarding poor EF, need for further cardiac evaluation (?cath), life vest with subsequent conversion to ICD and she was not wanting anything done (was going to pursue palliative care); however, she has since changed her mind as "she is not ready to " Patient does have known peripheral arterial disease. I would suspect she has underlying CAD. In addition, she does admit to a longstanding history of alcohol use. I suspect that the LV dysfunction may be multifactorial (ischemic, ETOH abuse and right sided dysfunction from her COPD) on 08/06, started on Entreso (BP was 130/78 prior) unfortunately, her blood pressure did not tolerate this (dropped to 70s/30s requiring small fluid bolus which she responded to). Her Bumex was then transitioned from 2mg daily to 2mg bid (as it was thought that her BP would not tolerate the 2mg as a single dose) Entresto has been stopped BP remained marginal at best requiring bumed to be held and allowing her to "catch up". I do not believe at this point that she requires 2 mg of Bumex. In talking with her and her son more at length, it is evident that she was not taking the 1 mg prescribed prior to this hospitalization Discussed with Dr. Barreto (cardiology) who agrees with above as outlined. Feels patient does not need cardiac evaluation prior to discharge as this can be facilitated as an outpatient. Since BP did not tolerate Entresto, he recommends perhaps trialing her on a low-dose SAMY inhibitor if BP will allow Unfortunately, marginal BP has limited disease modifying medication agents. Although patient reports that she is "not related to diet" she also discusses desire to be home We will consult palliative care to further go over goals of care. Initial plan was for discharge to rehab; however, may be more appropriate to discharge to home with hospice services. (I do not suspect that this patient is rehabable) (2) LV dysfunction: Plan: EF of 15 to 20% Likely multifactorial (has known PAD/vasculopathy-- suspect component of ischemic heart disease. Does have a longstanding history of alcohol abuse so may have a component of nonischemic cardiomyopathy. Also, Right sided disease from COPD) Seen by cardiology who recommends cardiac evaluation to further rule out ischemic disease but reports this can be done as an outpatient I did inquire about a LifeVest and patient has a lengthy history of noncompliance for financial reasons. Cardiology does not feel that a LifeVest should be utilized at this point Maximize disease modifying medications as her heart rate and blood pressure will tolerate (but unfortunately, blood pressure has been very intolerant to this) Also add aspirin. She has known peripheral arterial disease and should be on antiplatelet therapy (already on high intensity statin) (3) UTI (urinary tract infection): Plan: Patient with frequency and mild dysuria Urine culture showing Citrobacter Start Cipro based on culture data 3 days would be adequate as this is an uncomplicated UTI (4) Hypokalemia: Plan: replaced and resolved (5) Transaminitis: Plan: Likely multifactorial Patient with a longstanding history of alcohol abuse. RUQ ultrasound done showing hepatic steatosis but no significant cirrhotic c hanges Likely had a component of passive venous congestion from CHF (6) Hypothyroid: Plan: TSH 20 upon presentation Free T4 low level of normal at 0.9. Total T3 low at 43 Has since been started on Synthroid (given likelihood of underlying coronary disease and known vasculopathy) Will need follow-up TSH in 6 to 8 weeks (7) Alcohol use: Plan: Longstanding history of alcohol abuse. Patient reports that she has cut back significantly. Drinks 2 beer a day at present Has been in the hospital since 08/03 and currently denies S/S withdrawal (8) Paroxysmal atrial fibrillation: Plan: chronic Currently appears to be in a normal sinus rhythm on exam with controlled ventricular rate Is not on anticoagulation therapy as severe epistaxis noted from Elikylieis in the past [id number]: 5, moderate to high risk for stroke; Has bled score: 2 to 3 points, moderate risk for major bleeding I have since started patient on aspirin (which she needs to be on anyway for her PAD and presumed underlying CAD) (9) COPD (chronic obstructive pulmonary disease): Plan: Former smoker. Quit in March No evidence of acute exacerbation at this time (10) Acute kidney injury: Plan: Resolved Creatinine slightly elevated at 1.3 upon admission. Down to 1.1 Monitor closely (11) Peripheral arterial disease: Plan: Patient takes chronic statin therapy ASA added as outlined above (12) Debility: Plan: Patient reports decreased mobility ongoing for several weeks to months due to her shortness of breath with increasing dyspnea on exertion and edema of her lower extremities PT/OT on board and recommending acute rehab for which patient was initially agreeable. Now wishes to go home Case management on board but consider home with hospice Consult palliative care but could consider discharged home tomorrow with hospice services Plan: Plan of care D/W Dr. Sanabria Admission and Anticipated Discharge Date Admission Date: August 03, 2021 Subjective Patient seen on daily rounds today. Very unmotivated. Does not want to get out of bed. Had a [place] catheter up until several days ago when upset that this is no longer in and she has no desire to get out of bed. Gets "winded with limited exertion" BP overall much improved with D/C of entresto initially, plan was for rehab-- but patient now declining this. "just wants to be home" Noted to have an abnormal UC (citrobacter). She is c/o urinary frequency and mild dysuria. No F/C Otherwise, denies fevers, chills, chest pain, shortness of breath, abdominal pain, nausea or vomiting. Review of Systems Review of Systems: All systems reviewed and are unremarkable except as noted in HPI and below Denies fevers, chills, headache, nasal congestion, sore throat, cough, chest pain, shortness of breath, palpitations, orthopnea, PND, abdominal pain, nausea, vomiting, diarrhea, constipation, hematuria, back pain, joint pain or swelling, easy bruising or bleeding, skin lesions or rashes. Physical Exam Physical Exam: General: Resting comfortably in her hospital bed. Very withdrawn. Flat affect. NAD. HEENT: Head is AT/NC buccal mucosa is moist and pink Neck: No JVD. Negative hepatojugular reflex Cardiac: RRR with 2/6 PRAVEEN Lungs: CTA without W/R/R Abdomen: Normoactive X4. Soft and nontender in all quadrants. Extremities: No peripheral clubbing cyanosis or edema Neuro: A&O X4 cranial nerves II through XII are grossly intact no focal neuro deficits Skin: No obvious skin lesions or rashes Psych: Appropriate affect pleasant and cooperative Results & Data Results & Data ([facility]) Vital Signs (Past 12 Hours) Vital Signs Temp Pulse Resp BP Pulse Ox 08/08/21 15:36 36.6 C 83 18 107/63 93 08/08/21 11:21 36.6 C 77 16 104/58 L 94 08/08/21 08:41 36.6 C 75 18 118/75 94 PG Care Time/CCT Total # of Minutes Spent Total Time Spent with Patient: Total time spent is greater than 50% in coordination of care (as documented) at patient's floor/unit and/or counseling patient: Coding Level of Care Code 45024 Subseq Hosp Care Lvl 2 Diagnoses CHF (congestive heart failure) I50.23 Heart failure chronicity: acute on chronic Heart failure type: systolic LV dysfunction I51.9 Hypokalemia E87.6 Transaminitis R74.01 Hypothyroid E03.9 Alcohol use Z72.89 Paroxysmal atrial fibrillation I48.0 COPD (chronic obstructive pulmonary disease) J44.9 Acute kidney injury N17.9 Peripheral arterial disease I73.9 Debility R53.81 UTI (urinary tract infection) N39.0 (1) CHF (congestive heart failure) Heart failure chronicity: acute on chronic Heart failure type: systolic Qualified Code(s): I50.23 - Acute on chronic systolic (congestive) heart failure
[2021-08-08] MEDS: METOPROLOL SUCC 25MG EXT REL TAB PO SCH (20:07)
[2021-08-08] MEDS: MAGNESIUM OXIDE 400 MG TAB PO SCH (20:42)
[2021-08-08] MEDS: PRAMIPEXOLE DIHYDROCHLO 0.25 MG TAB PO SCH (20:44)
[2021-08-09] MEDS: LEVOTHYROXINE SODIUM 25 MCG TABLET PO SCH (06:06)
[2021-08-09 06:20] LABS: Hematocrit (blood only) 32.9 % (37-47); Hemoglobin 10.2 g/dL (12.0-16.0); Mean Corpuscular Hemoglobin 24.3 pg (25-34); Mean Corpuscular Volume 78.5 fL (80-100); Mean Platelet Volume 9.9 fL (7.4-10.4); Platelet Count 185 K/uL (130-400); RDW Coefficient of Variation 24.4 % (11.5-14.5); RDW Standard Deviation 68.7 fL (36.4-46.3); Red Blood Count 4.19 M/uL (4.2-5.4); White Blood Count 4.44 K/uL (4.8-10.8)
[2021-08-09 06:57] LABS: Albumin Level 1.6 gm/dl (3.4-5.0); BUN Creatinine Ratio 18.9 (10-20); Calcium 8.3 mg/dl (8.5-10.1); Creatinine Clr Calc Pharmacy 29.3 ml/min; Est GFR (African American) 50.4 ml/min; Est GFR (Non-African American) 43.5 ml/min; Magnesium 1.6 mg/dl (1.8-2.4); Potassium 3.3 mmol/L (3.5-5.1)
[2021-08-09 07:00] LABS: Albumin Globulin Ratio 0.4 (0.9-2); Bilirubin,Total 0.8 mg/dl (0.2-1); Globulin 3.7 gm/dl (2.5-4.0); Total Protein 5.3 gm/dl (6.4-8.2)
[2021-08-09] MEDS: BUMETANIDE 1 MG TAB PO SCH (07:50)
[2021-08-09] MEDS: POTASSIUM CHLORIDE CRTAB 20 MEQ TABCR PO SCH ×2 (07:51→10:15)
[2021-08-09] MEDS: PANTOprazole 40 MG TAB PO SCH (07:51)
[2021-08-09] MEDS: ASPIRIN 81 MG ECTAB PO SCH (07:51)
[2021-08-09] MEDS: ATORVASTATIN 40 MG TAB PO SCH (07:52)
[2021-08-09] MEDS: METOPROLOL SUCC 25MG EXT REL TAB PO SCH ×2 (07:52→20:30)
[2021-08-09] MEDS: AMIODARONE 200 MG TAB PO SCH (07:52)
[2021-08-09] MEDS: GABAPENTIN 300 MG CAP PO SCH ×3 (07:53→20:27)
[2021-08-09] MEDS: CIPROFLOXACIN 250 MG TAB PO SCH ×2 (07:53→20:27)
[2021-08-09] MEDS: MAGNESIUM OXIDE 400 MG TAB PO SCH ×2 (07:54→20:29)
[2021-08-09] MEDS: HEPARIN SOD 5,000 UNIT/0.5 ML VIAL SQ SCH ×2 (07:54→20:33)
--- NOTE | 2021-08-09 09:11 | Palliative Care Consultation ---
Date of Consultation August 09, 2021 Assessment & Plan (1) Palliative care encounter: Ms. Castillo is a 75 year old female who presented to the [facility] with increased falls at home. She has an additional PMH that includes: CHF, PAF, PAD s/p femoral-tibial bypass, COPD, history of alcohol and tobacco use, sacroiliitis, & restless leg syndrome. She has been experiencing worsening LE swelling as well. She lives at home with her , Abdulaziz, in a mobile home that has 5 steps. Palliative Medicine was consulted to discuss overall goals of care. I met with Lillian in her room just after the hospitalist GINA saw her. I talked with her about her overall goals and she was clear that she has a goal to return home. We talked more about that and she agreed to move forward with rehabilitation knowing that she may improvem stay about the same, or ultimately decline overall. I did reach out to her Abdulaziz at [phone] who confirmed that he would like her to try rehab. We did talk about the rigorous nature of [facility] vs SNF and he was agreeable to a SNF also which I think [facility] seems far more fitting than an acute rehab center, like [facility]. All questions answered to Abdulaziz. Palliative will follow. (2) CHF (congestive heart failure): Heart failure chronicity: acute on chronic Heart failure type: systolic Qualified Code(s): I50.23 - Acute on chronic systolic (congestive) heart failure (3) Weakness: History of Present Illness Reason for Consultation: goals of care Requesting Physician: Amada Medina PA-C Attending Physician: Lasha Chaves History of Present Illness Ms. Castillo is a 75 year old female who presented to the [facility] with increased falls at home. She has an additional PMH that includes: CHF, PAF, PAD s/p femoral-tibial bypass, COPD, history of alcohol and tobacco use, sacroiliitis, & restless leg syndrome. She has been experiencing worsening LE swelling as well. She lives at home with her , Abdulaziz, in a mobile home that has 5 steps. Palliative Medicine was consulted to discuss overall goals of care. Please see A/P for further details. Thanks for involving palliative medicine with this individual. Allergies Allergy/AdvReac Type Severity Reaction Status Date / Time Penicillins Allergy Intermediate Hives Verified 08/03/21 19:42 Home Medications Medication Instructions Recorded Confirmed Type cholecalciferol (vitamin D3) 25 5,000 unit PO QAM cap 08/11/20 08/03/21 History mcg (1,000 unit) capsule multivitamin with minerals 1 tab PO QAM 09/26/20 08/03/21 History calcium carbonate 500 mg (1,250 1 tab PO DAILY 12/08/20 08/03/21 History mg)-vitamin D3 200 unit tablet (Calcium 500 + D) amiodarone 200 mg tablet 200 mg PO DAILY 01/05/21 08/03/21 History diclofenac sodium 1 % topical gel 2 g TOPICAL QID PRN #2 g 02/19/21 08/03/21 Rx ipratropium 20 mcg-albuterol 100 1 puff INHALATION Q6H PRN 02/19/21 08/03/21 History mcg/actuation mist for inhalation (Combivent Respimat) metoprolol succinate 25 mg 12.5 mg PO BID #30 tab 02/19/21 08/03/21 Rx tablet,extended release 24 hr nystatin 100,000 unit/gram topical 1 applic TOPICAL DAILY PRN 02/19/21 08/03/21 History powder gabapentin 400 mg capsule 400 mg PO TID #90 cap 03/05/21 08/03/21 Rx pramipexole 0.125 mg tablet 0.125 mg PO DAILY #30 tab 03/05/21 08/03/21 Rx magnesium oxide 400 mg PO BID #30 tab 04/21/21 08/03/21 Rx atorvastatin 40 mg tablet 40 mg PO QAM #30 tab 04/22/21 08/03/21 Rx potassium chloride 20 mEq 40 meq PO DAILY #60 tab 06/14/21 08/03/21 Rx tablet,extended release(part/cryst) (Klor-Con M) omeprazole 40 mg capsule,delayed 40 mg PO DAILY #30 cap 06/28/21 08/03/21 Rx release aspirin 81 mg tablet,delayed 81 mg PO QAM #30 tab 08/09/21 Rx release bumetanide 1 mg tablet 1 mg PO DAILY #30 tab 08/09/21 08/03/21 Rx ciprofloxacin HCl 250 mg tablet 250 mg PO BID #3 tab 08/09/21 Rx ferrous sulfate 325 mg (65 mg 325 mg PO Q OTHER DAY #14 tab 08/09/21 Rx iron) tablet levothyroxine 25 mcg tablet 25 mcg PO DAILYBB #30 tab 08/09/21 Rx (Synthroid) Patient History Medical History (Updated 08/09/21 @ 23:03 by MAGNUS Torres) Acute kidney injury Anemia chronic, baseline hgb 10's Arthritis Chronic reflux esophagitis controlled Depression Dyslipidemia Hypercalcemia Hypertension Hypokalemia LBBB (left bundle branch block) dating back to 08/2020 [place] EKG On apixaban therapy Osteopenia Palliative care encounter Peripheral arterial disease Bilateral Common Iliac Artery Stenting(Bilateral), Bilateral Femoral Artery Endarterectomy with Bovine Patch (08/2020) Peripheral neuropathy Pulmonary nodule per records, pt denies RLS (restless legs syndrome) Sleep apnea no device Vitamin D deficiency Weakness Surgical History H/O endarterectomy Bilateral Common Iliac Artery Stenting(Bilateral), Bilateral Femoral Artery Endarterectomy with Bovine Patch: 08/26/20: Grade 2 view, MAC 3.0, ETT 7.0 at [facility] History of appendectomy History of carpal tunnel release of both wrists History of colonoscopy History of tooth extraction Hx of hysterectomy S/P femoral-tibial bypass Family History Mother Hypertension Father Hypertension Sister Hypertension Allergies Brother Hypertension Grandfather (Maternal) Heart disease Grandmother (Maternal) Heart disease Other No family history of adverse response to anesthesia No family history of bleeding disorder Social History Smoking Status: Unknown if ever smoked Tobacco Type: Cigarettes Age Started Using Tobacco: 7; Cigarettes Per Day: 3; Second Hand Exposure: No; Hx Alcohol Use: No Hx Substance Use: No Preferred Language: Sami Communication Ability: Effective Visual Impairment: No Limitations Hearing Ability: Hard of Hearing Second Class Welder Required: No Beliefs That Will Affect Care: None marital status: Current Living Situation: Spouse Current Living Situation Comment: - Abdulaziz current occupational status: retired How many Children do You have: 1 Other Information That Helps Us Care for You: No Feels Safe at Home: Hesitant to Answer Assistive Devices: None Review of Systems Review of Systems: [place] System Assessment Scale: Pain: 0/3 SOB: 1/3 Anxiety: 1/3 Lack of Appetite: 1/3 Palliative Performance Scale: 40% Physical Exam Constitutional: + frail appearing, cooperative and comfortable ENMT: Mouth: + dry oral mucous membranes Respiratory: + cough Auscultation: + diminished lung sounds Cardiovascular: Rate/Rhythm: regular rate and regular rhythm Heart Sounds: normal S1 and normal S2 Gastrointestinal (Abdomen): Inspection/Auscultation: abdomen normal to inspection Skin: + pallor Psychiatric: Orientation: alert and oriented x 3 Results & Data ([facility]) Vital Signs (Past 12 Hours) Vital Signs Temp Pulse Pulse Resp BP Pulse Ox 08/09/21 07:00 36.9 C 78 16 99/62 L 90 08/09/21 02:41 36.7 C 79 18 94/58 L 90 08/09/21 00:10 68 08/08/21 23:20 36.6 C 84 20 98/57 L 95 PG Care Time/CCT Total # of Minutes Spent Total Time Spent with Patient: Total time spent is greater than 50% in coordination of care (as documented) at patient's floor/unit and/or counseling patient: 70 minutes Coding Level of Care Code 63494 Initial Inpt Care Lvl 3 Diagnoses Palliative care encounter Z51.5 CHF (congestive heart failure) I50.23 Heart failure chronicity: acute on chronic Heart failure type: systolic Weakness R53.1 Time Spent (min) 70
--- NOTE | 2021-08-09 09:23 | Hospitalist Progress Note ---
Date of Service August 09, 2021 Assessment & Plan (1) CHF (congestive heart failure): Plan: Patient hospitalized on 08/03 with acute uncompensated CHF BNP was 22,702 and she had radiographic evidence of pulmonary vascular congestion Received Bumex 1 mg IV twice a day (typically takes 1 mg p.o. daily) with favorable response Converted to oral Bumex on 08/06 (2mg daily as was on 1mg daily TABULAR TYPIST) Echocardiogram done in November showed an EF of 45 to 50%. TTE repeated this hospital stay: significantly reduced EF of 15 to 20% with akinesis of the septum, apex, and anterior septum along with mid to distal inferior and anterior wall akinesis. Moderate MR and moderate TR. Patient on low dose BB (metoprolol 12.5mg BID). Ideally would uptitrate this given the LV dysfunction but heart rate will not tolerate (was in the 50's) lengthy D/W patient and her son regarding poor EF, need for further cardiac evaluation (?cath), life vest with subsequent conversion to ICD and she was not wanting anything done (was going to pursue palliative care); however, she has since changed her mind as "she is not ready to " Patient does have known peripheral arterial disease. I would suspect she has underlying CAD. In addition, she does admit to a longstanding history of alcohol use. I suspect that the LV dysfunction may be multifactorial (ischemic, ETOH abuse and right sided dysfunction from her COPD) on 08/06, started on Entreso (BP was 130/78 prior) unfortunately, her blood pressure did not tolerate this (dropped to 70s/30s requiring small fluid bolus which she responded to). Her Bumex was then transitioned from 2mg daily to 2mg bid (as it was thought that her BP would not tolerate the 2mg as a single dose) Entresto has been stopped BP remained marginal at best requiring bumed to be held and allowing her to "catch up". I do not believe at this point that she requires 2 mg of Bumex. In talking with her and her son more at length, it is evident that she was not taking the 1 mg prescribed prior to this hospitalization Discussed with Dr. Barreto (cardiology) who agrees with above as outlined. Feels patient does not need cardiac evaluation prior to discharge as this can be facilitated as an outpatient. Since BP did not tolerate Entresto, he recommends perhaps trialing her on a low-dose SAMY inhibitor if BP will allow Unfortunately, marginal BP has limited disease modifying medication agents. Although patient reports that she is "not related to diet" she also discusses desire to be home We will consult palliative care to further go over goals of care. 08/09 Initial plan was for discharge to rehab; however, may be more appropriate to discharge to home with hospice services. (I do not suspect that this patient is rehabable) --> Patient ok w/ rehab now Palliative seen (extensive hospitalizations best summarized by PCP visit February 2021, multiple stents in rehab following PAD s/p b/l fem artery endarterectomy 2019, surgery for repair, R fem-anteiror tib reverse saphenous bypass Oct 2020, admit CHF/RVR and concerns for osteo w/ ischemia and wounds requiring IV vanco/ertapenem x 6 weeks) Official palliative consultation pending. Patient continues to agree to rehab. Plans for [facility] however patient not getting up much -- encouraged. May benefit from lower level of rehab but will continue to monitor MCV <80 and checked iron stores (along with exertional SOB which could be from low EF as well) --> Trans % sat low at 13 with normal TIBC, ferritin 46.7, iron 44. Will give Venofer IV today x1, repeat in AM B12/folate pending -- B12 def for b/l LE neuropathy Has been refusing monitor technician -- will move off tele for now (2) LV dysfunction: Plan: EF of 15 to 20% Likely multifactorial (has known PAD/vasculopathy-- suspect component of ischemic heart disease. Does have a longstanding history of alcohol abuse so may have a component of nonischemic cardiomyopathy. Also, Right sided disease from COPD) Seen by cardiology who recommends cardiac evaluation to further rule out ischemic disease but reports this can be done as an outpatient I did inquire about a LifeVest and patient has a lengthy history of noncompliance for financial reasons. Cardiology does not feel that a LifeVest should be utilized at this point Maximize disease modifying medications as her heart rate and blood pressure will tolerate (but unfortunately, blood pressure has been very intolerant to this) Also add aspirin. She has known peripheral arterial disease and should be on antiplatelet therapy (already on high intensity statin) (3) UTI (urinary tract infection): Plan: Patient with frequency and mild dysuria Urine culture showing Citrobacter Start Cipro based on culture data 3 days would be adequate as this is an uncomplicated UTI -- sent at d/c and will need 2 less doses if d/c tomorrow. (would only need 1 tablet) (4) Hypokalemia: Plan: replaced and resolved Again 3.3 on repeat -- placed on 40meq daily given the bumex. Mag low and ordered IV replacement as well Repeat labs in AM (5) Transaminitis: Plan: Likely multifactorial Patient with a longstanding history of alcohol abuse. RUQ ultrasound done showing hepatic steatosis but no significant cirrhotic changes Likely had a component of passive venous congestion from CHF Improving (6) Hypothyroid: Plan: NEW TSH 20 upon presentation Free T4 low level of normal at 0.9. Total T3 low at 43 Has since been started on Synthroid (given likelihood of underlying coronary disease and known vasculopathy) Will need follow-up TSH in 6 to 8 weeks (7) Alcohol use: Plan: Longstanding history of alcohol abuse. Patient reports that she has cut back significantly. Drinks 2 beer a day at present Has been in the hospital since 08/03 and currently denies S/S withdrawal b12/folate pending as above, replacement if low (8) Paroxysmal atrial fibrillation: Plan: chronic Currently appears to be in a normal sinus rhythm on exam with controlled ventricular rate Is not on anticoagulation therapy as severe epistaxis noted from [facility] in the past [id number]: 5, moderate to high risk for stroke; Has bled score: 2 to 3 points, moderate risk for major bleeding I have since started patient on aspirin (which she needs to be on anyway for her PAD and presumed underlying CAD) --> Continue ASA at d/c (9) COPD (chronic obstructive pulmonary disease): Plan: Former smoker. Quit in March No evidence of acute exacerbation at this time (10) Acute kidney injury: Plan: Resolved Creatinine slightly elevated at 1.3 upon admission. Down to 1.23 and repeat again same Venofer for iron deficiency as above Monitor closely (11) Peripheral arterial disease: Plan: Patient takes chronic statin therapy ASA added as outlined above (12) Anemia: Plan: Microcytic with MCV<70. previous from NSAID use with + fecal occult but declined work-up at that time. PPI was increased to BID and counseled to avoid NSAIDs/alcohol Iron studies as above, venofer for 08/09, repeat tomorrow B12/folate pending given Etoh CBC in AM (13) Debility: Plan: Patient reports decreased mobility ongoing for several weeks to months due to her shortness of breath with increasing dyspnea on exertion and edema of her lower extremities PT/OT on board and recommending acute rehab for which patient was initially agreeable. Then, wished to go home but was ok w rehab during encounter today 08/09 Palliative consulted as above Rehab at d/c planned but possible transition to hospice pending improvement at rehab Plan: d/c telemetry today possible [facility] for tomorrow if bed available Venofer x 1 today, repeat inpatient tomorrow. B12/folate pending Continue Cipro for UTI Admission and Anticipated Discharge Date Admission Date: August 03, 2021 Subjective patient seen this morning doing alright -- with some ankle pain today -- agreeable to some voltaren as she stated she ran out previously. refusing to wear radiographer cardiac catheterization and will move off tele. she is agreeable to rehab and will alert CM. Palliative to see today regarding goals of care. no fever, chills, chest pain, shortness of breath (except with exertion). Discussed cardiac cath in future if patient agreeable to more procedures. She is continuing to think about this. Planning for rehab when bed available. Will give Venofer for low iron and check B12/folate. Review of Systems Review of Systems: All systems reviewed & are unremarkable except as noted in HPI & below Physical Exam Physical Exam: General: Resting comfortably in her hospital bed. Withdrawn. Flat affect. NAD. HEENT: Head is AT/NC buccal mucosa is moist and pink Neck: No JVD. Negative hepatojugular reflex Cardiac: RRR with 2/6 PRAVEEN Lungs: CTA without W/R/R Abdomen: Normoactive X4. Soft and nontender in all quadrants. Extremities: No peripheral clubbing cyanosis or edema Neuro: A&O X4 cranial nerves II through XII are grossly intact no focal neuro deficits Skin: cool, dry, chronic venous stasis changes noted Psych: AOx3, cooperative Results & Data Results & Data ([facility]) Vital Signs (Past 12 Hours) Vital Signs Temp Pulse Pulse Resp BP Pulse Ox 08/09/21 07:00 36.9 C 78 16 99/62 L 90 08/09/21 02:41 36.7 C 79 18 94/58 L 90 08/09/21 00:10 68 08/08/21 23:20 36.6 C 84 20 98/57 L 95 Laboratory Results 08/09/21 08/09/21 08/09/21 Range/Units 10:52 10:52 05:25 WBC (4.8-10.8) K/uL RBC (4.2-5.4) M/uL Hgb (12.0-16.0) g/dL Hct (37-47) % MCV (80-100) fL MCH (25-34) pg MCHC (32-36) g/dL RDW Std Deviation (36.4-46.3) fL RDW Coeff of Janie (11.5-14.5) % Plt Count (130-400) K/uL MPV (7.4-10.4) fL Sodium 136 (136-145) mmol/L Potassium 3.3 L (3.5-5.1) mmol/L Chloride 101 (98-107) mmol/L Carbon Dioxide 28 (21-32) mmol/L Anion Gap 7.0 (3-11) BUN 23 H (7-18) mg/dl Creatinine 1.23 H (0.6-1.2) mg/dl Est Cr Clr Drug Dosing 29.3 ml/min Est GFR ( Amer) 50.4 ml/min Est GFR (Non-Af Amer) 43.5 ml/min BUN/Creatinine Ratio 18.9 (10-20) Glucose 98 (70-99) mg/dl Calcium 8.3 L (8.5-10.1) mg/dl Magnesium 1.6 L (1.8-2.4) mg/dl Iron 44 (35-150) mcg/dl TIBC 283 (250-450) mcg/dl Transferrin 244 (200-360) mg/dl Transferrin % Sat 13 L (15-50) % Ferritin 46.7 (8-388) ng/ml Total Bilirubin 0.8 (0.2-1) mg/dl AST 100 H (15-37) U/L ALT 60 (12-78) U/L Alkaline Phosphatase 90 (45-117) U/L Total Protein 5.3 L (6.4-8.2) gm/dl Albumin 1.6 L (3.4-5.0) gm/dl Globulin 3.7 (2.5-4.0) gm/dl Albumin/Globulin Ratio 0.4 L (0.9-2) Vitamin B12 Pending Folate Pending 08/09/21 Range/Units 05:25 WBC 4.44 L (4.8-10.8) K/uL RBC 4.19 L (4.2-5.4) M/uL Hgb 10.2 L (12.0-16.0) g/dL Hct 32.9 L (37-47) % MCV 78.5 L (80-100) fL MCH 24.3 L (25-34) pg MCHC 31.0 L (32-36) g/dL RDW Std Deviation 68.7 H (36.4-46.3) fL RDW Coeff of Janie 24.4 H (11.5-14.5) % Plt Count 185 (130-400) K/uL MPV 9.9 (7.4-10.4) fL Sodium (136-145) mmol/L Potassium (3.5-5.1) mmol/L Chloride (98-107) mmol/L Carbon Dioxide (21-32) mmol/L Anion Gap (3-11) BUN (7-18) mg/dl Creatinine (0.6-1.2) mg/dl Est Cr Clr Drug Dosing ml/min Est GFR ( Amer) ml/min Est GFR (Non-Af Amer) ml/min BUN/Creatinine Ratio (10-20) Glucose (70-99) mg/dl Calcium (8.5-10.1) mg/dl Magnesium (1.8-2.4) mg/dl Iron (35-150) mcg/dl TIBC (250-450) mcg/dl Transferrin (200-360) mg/dl Transferrin % Sat (15-50) % Ferritin (8-388) ng/ml Total Bilirubin (0.2-1) mg/dl AST (15-37) U/L ALT (12-78) U/L Alkaline Phosphatase (45-117) U/L Total Protein (6.4-8.2) gm/dl Albumin (3.4-5.0) gm/dl Globulin (2.5-4.0) gm/dl Albumin/Globulin Ratio (0.9-2) Vitamin B12 Folate PG Care Time/CCT Total # of Minutes Spent Total Time Spent with Patient: Total time spent is greater than 50% in coordination of care (as documented) at patient's floor/unit and/or counseling patient: Coding Level of Care Code 94755 Subseq Hosp Care Lvl 3 Diagnoses CHF (congestive heart failure) I50.23 Heart failure chronicity: acute on chronic Heart failure type: systolic LV dysfunction I51.9 UTI (urinary tract infection) N39.0 Hypokalemia E87.6 Transaminitis R74.01 Hypothyroid E03.9 Alcohol use Z72.89 Paroxysmal atrial fibrillation I48.0 COPD (chronic obstructive pulmonary disease) J44.9 Acute kidney injury N17.9 Peripheral arterial disease I73.9 Debility R53.81 Anemia D64.9 (1) CHF (congestive heart failure) Heart failure chronicity: acute on chronic Heart failure type: systolic Qualified Code(s): I50.23 - Acute on chronic systolic (congestive) heart failure
[2021-08-09] MEDS: MAGNESIUM SULFATE / D5W 1 GM/100 ML BAG IV SCH ×2 (10:18→13:04)
[2021-08-09 11:30] LABS: Ferritin 46.7 ng/ml (8-388)
[2021-08-09] MEDS ORDERED: IRON SUCROSE 300 MG in SODIUM CHLORIDE 0.9% 250 ML IV ONE (14:00)
[2021-08-09] MEDS ORDERED: diphenhydrAMINE Capsule 25 MG CAP PO ONE (18:21)
[2021-08-09] MEDS: PRAMIPEXOLE DIHYDROCHLO 0.25 MG TAB PO SCH (20:31)
[2021-08-09 21:03] LABS: Folate (Folic Acid) 10.8 ng/ml (>5.38)
[2021-08-10 05:42] LABS: Hematocrit (blood only) 33.6 % (37-47); Hemoglobin 10.4 g/dL (12.0-16.0); Mean Corpuscular Hemoglobin 24.3 pg (25-34); Mean Corpuscular Volume 78.5 fL (80-100); Platelet Count 173 K/uL (130-400); RDW Coefficient of Variation 24.1 % (11.5-14.5); RDW Standard Deviation 68.7 fL (36.4-46.3); Red Blood Count 4.28 M/uL (4.2-5.4)
[2021-08-10] MEDS: LEVOTHYROXINE SODIUM 25 MCG TABLET PO SCH (05:42)
[2021-08-10 06:13] LABS: Albumin Globulin Ratio 0.4 (0.9-2); Albumin Level 1.6 gm/dl (3.4-5.0); BUN Creatinine Ratio 23.8 (10-20); Bilirubin,Total 0.7 mg/dl (0.2-1); Calcium 8.4 mg/dl (8.5-10.1); Creatinine Clr Calc Pharmacy 39.1 ml/min; Est GFR (African American) 64.7 ml/min; Est GFR (Non-African American) 55.8 ml/min; Globulin 3.8 gm/dl (2.5-4.0); Magnesium 1.7 mg/dl (1.8-2.4); Potassium 3.8 mmol/L (3.5-5.1); Total Protein 5.4 gm/dl (6.4-8.2)
[2021-08-10] MEDS ORDERED: IRON SUCROSE 300 MG in SODIUM CHLORIDE 0.9% 250 ML IV ONE (08:00)
[2021-08-10] MEDS: METOPROLOL SUCC 25MG EXT REL TAB PO SCH (08:55)
[2021-08-10] MEDS: ATORVASTATIN 40 MG TAB PO SCH (09:48)
[2021-08-10] MEDS: BUMETANIDE 1 MG TAB PO SCH (09:48)
[2021-08-10] MEDS: ASPIRIN 81 MG ECTAB PO SCH (09:48)
[2021-08-10] MEDS: AMIODARONE 200 MG TAB PO SCH (09:48)
[2021-08-10] MEDS: POTASSIUM CHLORIDE CRTAB 20 MEQ TABCR PO SCH (09:48)
[2021-08-10] MEDS: GABAPENTIN 300 MG CAP PO SCH ×2 (09:49→15:07)
[2021-08-10] MEDS: CIPROFLOXACIN 250 MG TAB PO SCH (09:49)
[2021-08-10] MEDS: MAGNESIUM OXIDE 400 MG TAB PO SCH (09:49)
[2021-08-10] MEDS: HEPARIN SOD 5,000 UNIT/0.5 ML VIAL SQ SCH (09:50)
[2021-08-10] MEDS: PANTOprazole 40 MG TAB PO SCH (09:54)
--- NOTE | 2021-08-10 11:41 | Discharge Summary ---
Date of Service August 10, 2021 Admission HPI Per Admitting Provider Larisa 75-year-old female with a past medical history of HFrEF, PAF, PAD status post femoral-tibial bypass, COPD, history of alcohol and tobacco use, sacroiliitis, restless leg syndrome who presents emergency department for falls at home. History was brought in by her children who noted that she had been falling frequently at home. She notes that she has trouble ambulating at home and has been more dyspneic on exertion. She states that taking her Bumex causes her to have to go to the bathroom frequently which she is unable to do so she frequently does not take her Bumex. She states she also has not been eating much recently but when she does eat she frequently has lunch meats. She denies any episodes of chest pain, chest pressure recently. She denies any shortness of breath at rest. She does have significant bilateral leg pain secondary to the swelling and weight gain. Patient states that she lives at home with her , and both of them have been in and out of the hospital and rehab as of late. She states that her actually just got home from long-term and is now on hospice care at home. She states that she is unable to take care of him and herself as she is barely able to get up from bed and walk the 2 steps to her bathroom. She does have a walker and cane at home that she uses to help her ambulate. She states she is unable to cook or clean at home and does not have anyone to help her. She does have 1 son sometimes helps out but she feels bad asking him for help because he is also very busy. She states that they have previously reach out to our office of aging but had not been able to follow through with getting additional assistance from them. Admission Exam Per Admitting Provider Constitutional: elderly appearing female, in no apparent distress, laying in bed under multiple blankets Eyes: EOMI, pupils equal and reactive bilaterally, no scleral icterus Cardiac: RRR, no murmurs, gallops or rubs. Normal S1, S2 Pulm: CTA BL, mild crackles in left lower lobe, otherwise clear exam and good inspiratory effort on 2L NC Abd: soft, nontender, nondistended, normal bowel sounds, no rebound or guarding Extremities: 4+ pitting edema to hips Neuro: no focal deficits, moving all 4 limbs, A&Ox3 Principal Diagnosis CHF, UTI, Hypothyroidism Discharge Exam General: Resting comfortably in her hospital bed. Withdrawn. Flat affect. NAD. chronically ill appearing HEENT: Head is AT/NC buccal mucosa is moist and pink Neck: No JVD. Negative hepatojugular reflex Cardiac: RRR with 2/6 PRAVEEN Lungs: CTA without W/R/R Abdomen: Normoactive X4. Soft and nontender in all quadrants. Extremities: No peripheral clubbing cyanosis or edema Neuro: A&O X4 cranial nerves II through XII are grossly intact no focal neuro deficits Skin: cool, dry, chronic venous stasis changes noted, raised red rash to torso and abdomen (previously reported itchy last evening but no issues today) Psych: AOx3, cooperative Discharge Data Allergies Allergy/AdvReac Type Severity Reaction Status Date / Time Penicillins Allergy Intermediate Hives Verified 08/12/21 14:10 Consultations 08/03/21 20:45 ED Decision to Admit Stat 08/05/21 16:32 Consult Cardiology Routine 08/07/21 13:46 Consult Palliative Care Routine Ordered Studies 08/07/21 09:07 US liver Routine Hospital Course (1) CHF (congestive heart failure): Patient hospitalized on 08/03 with acute uncompensated CHF BNP was 22,702 and she had radiographic evidence of pulmonary vascular congestion Received Bumex 1 mg IV twice a day (typically takes 1 mg p.o. 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 TTE repeated this h ospital stay: significantly reduced EF of 15 to 20% with akinesis of the septum, apex, and anterior septum along with mid to distal inferior and anterior wall akinesis. Moderate MR and moderate TR. Patient on low dose BB (metoprolol 12.5mg BID). Ideally would uptitrate this given the LV dysfunction but heart rate will not tolerate (was in the 50's) lengthy D/W patient and her son regarding poor EF, need for further cardiac evaluation (?cath), life vest with subsequent conversion to ICD and she was not wanting anything done (was going to pursue palliative care); however, she has since changed her mind as "she is not ready to " Patient does have known peripheral arterial disease. I would suspect she has underlying CAD. In addition, she does admit to a longstanding history of alcohol use. I suspect that the LV dysfunction may be multifactorial (ischemic, ETOH abuse and right sided dysfunction from her COPD) on 08/06, started on Entreso (BP was 130/78 prior) unfortunately, her blood pressure did not tolerate this (dropped to 70s/30s requiring small fluid bolus which she responded to). Her Bumex was then transitioned from 2mg daily to 2mg bid (as it was thought that her BP would not tolerate the 2mg as a single dose) Entresto has been stopped BP remained marginal at best requiring bumed to be held and allowing her to "catch up". I do not believe at this point that she requires 2 mg of Bumex. In talking with her and her son more at length, it is evident that she was not taking the 1 mg prescribed prior to this hospitalization Discussed with Dr. Barrteo (cardiology) who agrees with above as outlined. Feels patient does not need cardiac evaluation prior to discharge as this can be facilitated as an outpatient. Since BP did not tolerate Entresto, he recommends perhaps trialing her on a low-dose SAMY inhibitor if BP will allow Unfortunately, marginal BP has limited disease modifying medication agents. Although patient reports that she is "not related to diet" she also discusses desire to be home We will consult palliative care to further go over goals of care. Initial plan was for discharge to rehab; however, may be more appropriate to discharge to home with hospice services. (I do not suspect that this patient is rehabable) --> Patient ok w/ rehab now Palliative seen (extensive hospitalizations best summarized by PCP visit February 2021, multiple stents in rehab following PAD s/p b/l fem artery endarterectomy 2019, surgery for repair, R fem-anterior tib reverse saphenous bypass Oct 2020, admit CHF/RVR and concerns for osteo w/ ischemia and wounds requiring IV vanco/ertapenem x 6 weeks) Plans for [facility] however patient not getting up much -- encouraged. May bonnie efit from lower level of rehab but will see how she does at [facility] MCV <80 and checked iron stores (along with exertional SOB which could be from low EF as well) --> Trans % sat low at 13 with normal TIBC, ferritin 46.7, iron 44. Venofer IV x1 and developed rash -- switched to oral at d/c. Avoiding systemic steroids that could worsen CHF and would expect to resolve over next several days. If needed, could initiate but may need additional dosing of bumex while on steroids -- had nurse daily contact [employer] to pass along information as well as mag 1.7 prior to d/c without replacement to increase her daily dosing (2) LV dysfunction: EF of 15 to 20% Likely multifactorial (has known PAD/vasculopathy-- suspect component of ischemic heart disease. Does have a longstanding history of alcohol abuse so may have a component of nonischemic cardiomyopathy. Also, Right sided disease from COPD) Seen by cardiology who recommends cardiac evaluation to further rule out ischemic disease but reports this can be done as an outpatient I did inquire about a LifeVest and patient has a lengthy history of noncompliance for financial reasons. Cardiology does not feel that a LifeVest should be utilized at this point Maximize disease modifying medications as her heart rate and blood pressure will tolerate (but unfortunately, blood pressure has been very intolerant to this) Also add aspirin. She has known peripheral arterial disease and should be on antiplatelet therapy (already on high intensity statin) (3) UTI (urinary tract infection): Patient with frequency and mild dysuria Urine culture showing Citrobacter Start Cipro based on culture data 3 days would be adequate as this is an uncomplicated UTI -- sent at d/c and will need 2 less doses if d/c tomorrow. (would only need 1 tablet) (4) Hypokalemia: replaced and resolved Again 3.3 on repeat -- placed on 40meq daily given the bumex. Mag low and ordered IV replacement as well Repeat labs in AM (5) Transaminitis: Likely multifactorial Patient with a longstanding history of alcohol abuse. RUQ ultrasound done showing hepatic steatosis but no significant cirrhotic wolff ges Likely had a component of passive venous congestion from CHF Improving (6) Hypothyroid: NEW TSH 20 upon presentation Free T4 low level of normal at 0.9. Total T3 low at 43 Has since been started on Synthroid (given likelihood of underlying coronary disease and known vasculopathy) Will need follow-up TSH in 6 to 8 weeks (7) Alcohol use: Longstanding history of alcohol abuse. Patient reports that she has cut back significantly. Drinks 2 beer a day at present Has been in the hospital since 08/03 and currently denies S/S withdrawal b12/folate pending as above, replacement if low (8) Paroxysmal atrial fibrillation: chronic Currently appears to be in a normal sinus rhythm on exam with controlled ventricular rate Is not on anticoagulation therapy as severe epistaxis noted from [facility] in the past [id number]: 5, moderate to high risk for stroke; Has bled score: 2 to 3 points, moderate risk for major bleeding I have since started patient on aspirin (which she needs to be on anyway for her PAD and presumed underlying CAD) --> Continue ASA at d/c (9) COPD (chronic obstructive pulmonary disease): Former smoker. Quit in March No evidence of acute exacerbation at this time (10) Acute kidney injury: Resolved Creatinine slightly elevated at 1.3 upon admission. Down to 1.23 and repeat again same Venofer for iron deficiency as above (11) Peripheral arterial disease: Patient takes chronic statin therapy ASA added as outlined above (12) Anemia: Microcytic with MCV<70. previous from NSAID use with + fecal occult but declined work-up at that time. PPI was increased to BID and counseled to avoid NSAIDs/alcohol Iron studies as above, venofer for 08/09 Oral supplementation at d/ B12/folate without deficiency (13) Debility: Patient reports decreased mobility ongoing for several weeks to months due to her shortness of breath with increasing dyspnea on exertion and edema of her lower extremities PT/OT on board and recommending acute rehab for which patient was initially agreeable. Then, wished to go home but was ok w rehab during encounter today 08/09 Palliative consulted as above Rehab at d/ planned but possible transition to hospice pending improvement at rehab Total Time Total Time Spent Total Time Spent (In Minutes): 45 Discharge Plan Discharge Items Patient Disposition: Transfer Inpatient Rehab Fac Reason For Visit: FALLS, SOB Discharge Diagnosis: Falls, Congestive Heart Failure Goals: You have been hospitalized for an acute medical problem. During your stay at [facility], we have made an effort to correct the problem that brought you to the hospital while keeping you as comfortable as possible. Medications were used to bring your condition under control and your discharge instructions will include directions for any medications you should take after leaving the hospital. Please make sure you see your Primary Care Provider as part of your follow up plan. Activity: As commented below Activity Comment: advance as tolerated with therapy Non-emergency contact: Primary Care Provider and Nuclear Engineer Call non-emergency contact if: you have any medication questions, your symptoms worsen, your pain is not controlled and you have a fever Follow-up/Referrals: Yadiel Barreto MD [Physician] - (1-2 weeks) Marley Bates MD [Primary Care Provider] - Diet: Heart Healthy Addtl Attending Provider Instructions: You have been hospitalized for frequent falls, and there may have been concerns you were not taking medications correctly. You have been given diuretics in your IV and by mouth to help bring off the swelling and cardiology was consulted. Given your borderline low blood pressures, lisinopril was not initiated at this time (your pumping function of your heart is low and this will help to strengthen) however you will continue on metoprolol for this purpose but this was unable to be increased as your heart rates were on the lower side. For this reason with your blood pressure, you were unable to be started on a medication such as Entresto. You should continue bumex 1mg by mouth daily. You were started on aspirin 81mg daily for your history of Afib and PAD, which is continued. Continue to monitor your weights daily and adhere to a low salt diet. You will need to have continued conversations at rehab about whether you would like to persue cardiac angiography in the future. Decision was held off for now as you may need additional procedures and it appears we are moving towards a palliative approach in the future pending on how you do at rehab. You have 3 days of Ciprofloxacin to complete treatment for possible UTI. Your TSH (thyroid hormone) was low and you were started on 25mcg Synthroid daily and will need repeat TFT in 6 weeks as an outpatient. Your hemoglobin levels were low and iron studies were checked which did show ir on deficiency and you were given a dose of IV Venofer while in the hospital. You can continue oral supplementation every other day with bowel regimen to prevent constipation. You developed a rash after receiving this and further IV venofer was avoided. We are avoiding systemic steroids at this time to prevent worsening congestion from fluid retention, however if rash persists or becomes bothersome would recommend low dose prednisone for resolution. You may need additional diuretics if this occurs. This should also help with breathing and energy/fatigue. You should follow up with your PCP in 1-2 weeks to monitor your progress. 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 * Use the same scale. * Wear the same amount of clothing. * Write your weight down on your chart. * Call your doctor if you gain more than 2-3 pounds in 1-2 days. MEDICATIONS * Use this discharge instruction sheet for instructions. * Take your medications at the time your doctor ordered. * Do not skip a dose of your medicines. * If you miss a dose of medicine, take as soon as possible, but DO NOT DOUBLE A DOSE. * Read your medicine information when you get home. * Know all of the side effects of your medicine. * Call your doctor's office if you have any side effects. * Be sure all of your doctors know what medicine and herbs you take (including cold, flu, and herbal medicine). * Pain Medicine: If you do not get relief from your pain, please call your doctor for help. Take the following with you to your follow-up doctor appointments: * Weight Chart * Medication List * List of questions Do not drink excessive alcohol, beer or wine. Pending Studies at Discharge: No Stand-Alone Forms: My [facility] Skilled Items Patient informed of condition?: Yes DNR: Yes Discharge Level of Care: Acute rehab Communicable Disease: No Discharge Prognosis: Stable Lines: None Urinary Catheter: No Medications and DC Order Prescriptions: New ciprofloxacin HCl 250 mg Tablet 250 mg PO BID Qty: 3 RF: 0 levothyroxine [Synthroid] 25 mcg Tablet 25 mcg PO DAILYBB Qty: 30 RF: 0 ferrous sulfate 325 mg (65 mg iron) tablet 325 mg PO Q OTHER DAY Qty: 14 RF: 0 Continued pramipexole 0.125 mg tablet 0.125 mg PO DAILY Qty: 30 RF: 5 atorvastatin 40 mg tablet 40 mg PO QAM Qty: 30 RF: 6 potassium chloride [Klor-Con M20] 20 mEq tablet,ER particles/crystals 40 meq PO DAILY Qty: 60 RF: 5 amiodarone 200 mg tablet 200 mg PO DAILY RF: 0 nystatin 100,000 unit/gram powder 1 applic topical DAILY PRN (Reason: Skin Irritation) RF: 0 Combivent Respimat 20-100 mcg/actuation mist 1 puff inhalation Q6H PRN (Reason: Shortness Of Breath Or Wheezing) RF: 0 diclofenac sodium 1 % gel 2 g topical QID PRN (Reason: pain) Qty: 2 RF: 0 metoprolol succinate 25 mg tablet extended release 24 hr 12.5 mg PO BID Qty: 30 RF: 2 calcium carbonate-vitamin D3 [Calcium 500 + D] 500 mg(1,250mg) -200 unit table t 1 tab PO DAILY RF: 0 cholecalciferol (vitamin D3) 25 mcg (1,000 unit) capsule 5,000 unit PO QAM RF: 0 multivitamin with minerals Tablet 1 tab PO QAM RF: 0 Changed bumetanide 1 mg tablet 1 mg PO DAILY Qty: 30 RF: 0 No Action aspirin 81 mg tablet,chewable 81 mg PO DAILY Qty: 30 RF: 2 gabapentin 400 mg capsule 600 mg PO DAILY RF: 0 pantoprazole 40 mg tablet,delayed release (DR/EC) 40 mg PO DAILY RF: 0 docusate sodium [Colace] 100 mg capsule 100 mg PO BID RF: 0 magnesium hydroxide [Milk of Magnesia] PO DAILY PRNRF: 0 bisacodyl 10 mg suppository 10 mg TX DAILY PRNRF: 0 sodium phosphates [Fleet Enema] TX RF: 0 sennosides-docusate sodium [Senokot-S] PO PRNRF: 0 acetaminophen 325 mg tablet 650 mg PO QID PRNRF: 0 diphenhydramine HCl [Benadryl] 25 mg capsule 25 mg PO Q6H PRNRF: 0 Discharge Orders: Discharge Order (Routine); Ordered 08/10/21 Ordered By: Renee Flynn Admission Data Admit Date/Time: 08/03/21 20:55 Attending Provider: Lasha Chaves Admit Provider: Casandra Brown Primary Care Provider: Marley Bates Other Providers: [facility] ; Chase Sanabria ; [place] ; Leobardo Matias ; Yadiel Barreto ; Luba Burrell Supervising Physician Co-Signing Physician Notes Attending addendum: I have physically seen this patient, have supervised the [facility] activities, and agree with the discharge summary unless as otherwise noted. Assessment and Plan: HFrEF exacerbation/atrial fibrillation/hypertension- The patient was treated with diurectics. Patient improved and will be discharged to rehab. Continue amiodarone, metoprolol succinate and potassium chloride at discharge. Coding Level of Care Code D/C DAY MANAGEMENT >30 MINS Diagnoses CHF (congestive heart failure) I50.23 Heart failure chronicity: acute on chronic Heart failure type: systolic LV dysfunction I51.9 UTI (urinary tract infection) N39.0 Hypokalemia E87.6 Transaminitis R74.01 Hypothyroid E03.9 Alcohol use Z72.89 Paroxysmal atrial fibrillation I48.0 COPD (chronic obstructive pulmonary disease) J44.9 Acute kidney injury N17.9 Peripheral arterial disease I73.9 Anemia D64.9 Debility R53.81
[2021-08-10] MEDS ORDERED: LORATADINE 10 MG TAB PO ONE (16:11)
== END 2021-08-10 17:27 | DRG 291 ==
LOC: ED 18:36 → SUATTDRO 20:55 → EDINP 20:55 → 2N 08-04 22:14
DX: Z91.14 Patient's other noncompliance with medication regimen; I25.10 Atherosclerotic heart disease of native coronary artery without angina pectoris; L27.0 Generalized skin eruption due to drugs and medicaments taken internally; B96.89 Other specified bacterial agents as the cause of diseases classified elsewhere; R09.02 Hypoxemia; E87.2 Acidosis; R26.9 Unspecified abnormalities of gait and mobility; G25.81 Restless legs syndrome; K76.0 Fatty (change of) liver, not elsewhere classified; N18.30 Chronic kidney disease, stage 3 unspecified; I48.0 Paroxysmal atrial fibrillation; N17.9 Acute kidney failure, unspecified; E03.9 Hypothyroidism, unspecified; Z74.2 Need for assistance at home and no other household member able to render care; I73.9 Peripheral vascular disease, unspecified; Z63.6 Dependent relative needing care at home; R29.6 Repeated falls; Z72.89 Other problems related to lifestyle; N39.0 Urinary tract infection, site not specified; Z23 Encounter for immunization; I13.0 Hypertensive heart and chronic kidney disease with heart failure and stage 1 through stage 4 chronic kidney disease, or unspecified chronic kidney disease; R74.01 Elevation of levels of liver transaminase levels; J44.9 Chronic obstructive pulmonary disease, unspecified; M46.1 Sacroiliitis, not elsewhere classified; I08.1 Rheumatic disorders of both mitral and tricuspid valves; R53.81 Other malaise; E87.6 Hypokalemia; Z79.899 Other long term (current) drug therapy; Z20.822 Contact with and (suspected) exposure to COVID-19; Z91.81 History of falling; M85.80 Other specified disorders of bone density and structure, unspecified site; I42.8 Other cardiomyopathies; I44.7 Left bundle-branch block, unspecified; D50.9 Iron deficiency anemia, unspecified; I50.23 Acute on chronic systolic (congestive) heart failure; Z91.120 Patient's intentional underdosing of medication regimen due to financial hardship; T36.8X5A Adverse effect of other systemic antibiotics, initial encounter; Z88.0 Allergy status to penicillin; Z95.820 Peripheral vascular angioplasty status with implants and grafts; Z91.11 Patient's noncompliance with dietary regimen; Z91.19 Patient's noncompliance with other medical treatment and regimen; Z87.891 Personal history of nicotine dependence

== ENCOUNTER 2021-09-22 07:37 | Inpatient (IN) ==
[2021-09-22] MEDS ORDERED: SODIUM CHLORIDE 0.9% 500 ML IV STA (08:00)
[2021-09-22] MEDS ORDERED: ATROPINE SULFATE 0.1 MG/ML 10ML SYR IV STA ×3 (08:00→10:21)
--- NOTE | 2021-09-22 08:24 | Emergency Department Note ---
Impression & Plan Symptomatic bradycardia, Hypercalcemia, Acute hypotension, Acute renal insufficiency, Hyperkalemia, HFrEF (heart failure with reduced ejection fraction), Encephalopathy ED Provider Note NAME: DINORAH BUSTAMANTE AGE: 76 SEX: F ARRIVES VIA: Ambulance INFORMANT: Patient, EMS ED PROVIDER(S): Fabrice Crawford MD CHIEF COMPLAINT: Fall, ams PLAN: Disposition: Admit MEDICAL DECISION MAKING: The patient is a pleasant 76-year-old woman with a past medical history of biventricular CHF with EF of 10-15% previously declining ICD or vest, history of left bundle branch block, COPD, paroxysmal atrial fibrillation on Eliquis, hypertension, hyperlipidemia, esophagitis, PAD who presents to the emergency department from her rehab facility at [facility] for altered mental status after having an unwitnessed fall where she hit her head and has a bruise over her left eye. Fall as believed to have occurred around 5am. History is limited due to the patient's confusion. There is no report of any recent illness such as fevers, chills, cough or congestion. Per records the patient is DNR. The patient is awake and alert to self but confused to situation and place. She is afebrile with heart rate noted to be in the low to mid 40s with blood pressure 70s/40s. Her O2 saturation is 98 and greater on 4 L nasal cannula. I did perform a limited bedside cardiac ultrasound that does confirm the patient's history of poor EF. IVC is minimally variable with respiration. She was given 500 cc of normal saline and 0.5 mg of atropine with good effect with heart rate improving into the low 60s and blood pressure improving to the 90s/60s. She appears slightly somnolent. She has a minor hematoma over the left lateral periorbital region. No bony crepitus. She has no midline tenderness to the patient or step-offs of the CT or L-spine. She has pain with range of motion of the right hip. No discrete tenderness on palpation. EKG demonstrates junctional bradycardia at 49 with left bundle branch block. no sgarbossa criteria. Chest x-ray with question of pneumonia however further clarified on CT which demonstrates cysts emphysematous change as well as a co mponent of interstitial pulmonary edema and trace pleural effusions. Otherwise, CT of the head, C-spine, chest, abdomen pelvis were negative for acute traumatic findings. Unfortunately, approximately an hour after her initial improvement with atropine her heart rate again began to downtrend to the 40s and blood pressure to the 70s/50s. A repeat dose of atropine was given with marginal effect. Her lab work demonstrates acute renal insufficiency with creatinine of 2.25 increased from previous range of 1-1.5. BUN is 61 with BUN/creatinine> 20 suggestive of prerenal component. No metabolic acidosis. Potassium is 5.9. Calcium is 11.3. Troponin 0.03, within normal limits. Given the persistence of the patient's symptomatic bradycardia with acute renal insufficiency with hyperkalemia she was treated with insulin and D50 as well as DuoNeb. She was given intermittent boluses of IV fluids. Unfortunately her bradycardia/hypotension was refractory. WBC within normal limits. H/H similar to prior. Platelets within normal limits. UA with bacteria albeit with epithelial cells and no WBCs. Covid-19 RNA, NAAT negative. I did speak in detail with the patient's son over the phone and he does confirm the patient is DNR given this was her last discussion of goals of care. He also confirms that he considers she is DNI as well. Moreover I explained the critical nature of her condition at this time and how pacing is typically a treatment modality. However given she had previously declined an AICD or a vest he also believes that she would not want external pacing or temporary transvenous pacing. I did explain that treatment options options would then be limited and the last consideration would be to attempt vasopressors. He reports that if this is a measure that is short-term that could help her he agrees with this option including a central line if needed. He understands that if this is not successful, then her care would likely transition to comfort. Thus, dopamine was ordered and initiated. Case was discussed with Jerry Tyler [facility] with Dr. Gupta, [facility] hospitalist, who will evaluate the patient for admission. Case was also reviewed with [facility] cardiology on-call, Dr. De Leon, who agrees with trial of vasopressor/inotropes while correcting metabolic abnormalities, given patient's limitations in care otherwise. The patient's heart rate and blood pressure did improve with dopamine infusion. Further management per admitting team. Patient's son who did arrive at the bedside was updated. Triage Nursing notes reviewed and agree them. Prior medical records reviewed Vital Signs: reviewed and remarkable for hypotension/bradycardia. Differential diagnosis: Infection, dehydration, metabolic abnormality, hypo/hyperglycemia, electrolyte disturbance, anemia, hypoxia, cardiac sources, intracerebral event, toxicologic, neurologic, as well as other pathologies. ER treatment provided: See below. Diagnostics interpreted by me: ECG: Junctional bradycardia, 49 bpm, no ectopy, left bundle branch block, no sgarbossa criteria. Cardiac Monitoring: An order for continuous cardiac monitoring was placed and demonstrated sinus bradycardia, 40s, no ectopy Laboratory studies: See below Imaging studies: See below Consultation(s): Jerry Tyler [facility] with Dr. Gupta, [facility] hospitalist [facility] cardiology on-call, Dr. De Leon. HPI: The patient is a pleasant 76-year-old woman with a past medical history of biventricular CHF with EF of 10-15% previously declining ICD or vest, history of left bundle branch block, COPD, paroxysmal atrial fibrillation on Eliquis, hypertension, hyperlipidemia, esophagitis, PAD who presents to the emergency department from her rehab facility at [facility] for altered mental status after having an unwitnessed fall where she hit her head and has a bruise over her left eye. Fall as believed to have occurred around 5am. History is limited due to the patient's confusion. There is no report of any recent illness such as fevers, chills, cough or congestion. Per records the patient is DNR. ROS: See above HPI for pertinent positives & negatives. A total of 10 systems reviewed and were otherwise negative. PAST MEDICAL HISTORY:See Below PAST SURGICAL HISTORY:See Below FAMILY HISTORY:See Below SOCIAL HISTORY:See Below HOME MEDICATIONS:See Below ALLERGIES:See Below VITALS:See Below PHYSICAL EXAMINATION: GENERAL: Slightly somnolent but awake, alert, acute on chronically ill- appearing, in no distress HENT: Normocephalic, minor hematoma to the left lateral periorbital region.. Oropharynx dry mucous membranes. EYES: Normal conjunctiva. Sclera non-icteric. NECK: Supple. No nuchal rigidity. FROM. No JVD. RESPIRATORY: Clear to auscultation. CARDIAC: Bradycardic rate, irregular rhythm. Extremities warm and well perfused. Pulses equal. ABDOMEN: Soft, non-distended. No tenderness to palpation. No rebound or guarding. No masses. RECTAL: Deferred. MUSCULOSKELETAL: Chest examination reveals no tenderness. The back is symmetrical on inspection without obvious abnormality. There is no CVA tenderness to palpation. No joint edema. Pain with range of motion of the right hip without point tenderness to palpation or step-offs. LOWER EXTREMITIES: Calves are equal size bilaterally and non-tender. No edema. No discoloration. NEURO: No focal sensory or motor deficits noted. SKIN: No rash or jaundice noted. ED COURSE: Critical Care: I have personally spent greater than 95 minutes of critical care time in the direct management of this patient. This includes bedside care, interpretation of diagnostic studies, and testing, discussion with consultants, patient, and family members, and other required patient management activities. This 95 minutes is in excess of all separately billable procedures. Fabrice Crawford MD Past Med/Surg History Medical History Acute kidney injury Anemia chronic, baseline hgb 10's Arthritis Chronic reflux esophagitis controlled Depression Dyslipidemia Hypercalcemia Hypertension Hypokalemia LBBB (left bundle branch block) dating back to 08/2020 [facility] EKG On apixaban therapy Osteopenia Palliative care encounter Peripheral arterial disease Bilateral Common Iliac Artery Stenting(Bilateral), Bilateral Femoral Artery Endarterectomy with Bovine Patch (08/2020) Peripheral neuropathy Pulmonary nodule per records, pt denies RLS (restless legs syndrome) Sleep apnea no device Vitamin D deficiency Weakness Surgical History H/O endarterectomy Bilateral Common Iliac Artery Stenting(Bilateral), Bilateral Femoral Artery Endarterectomy with Bovine Patch: 08/26/20: Grade 2 view, MAC 3.0, ETT [address] [facility] History of appendectomy History of carpal tunnel release of both wrists History of colonoscopy History of tooth extraction Hx of hysterectomy S/P femoral-tibial bypass Family History Mother Hypertension Father Hypertension Sister Hypertension Allergies Brother Hypertension Grandfather (Maternal) Heart disease Grandmother (Maternal) Heart disease Other No family history of adverse response to anesthesia No family history of bleeding disorder Social History Smoking Status: Unknown if ever smoked Tobacco Type: Cigarettes Age Started Using Tobacco: 7; Cigarettes Per Day: 3; Second Hand Exposure: No; Hx Alcohol Use: No Hx Substance Use: No Preferred Language: Nigerian Communication Ability: Effective Visual Impairment: No Limitations Hearing Ability: Hard of Hearing Compliance Monitor Required: No Beliefs That Will Affect Care: None marital status: Current Living Situation: Spouse Current Living Situation Comment: - Abdulaziz current occupational status: retired How many Children do You have: 1 Feels Safe at Home: Yes Assistive Devices: Walker Allergies Allergies Allergy/AdvReac Type Severity Reaction Status Date / Time Penicillins Allergy Intermediate Hives Verified 09/13/21 15:43 ciprofloxacin Allergy Hives Unverified 09/22/21 10:58 Home Meds Home Medications Medication Instructions Recorded Confirmed multivitamin with minerals 1 tab PO QAM 09/26/20 09/22/21 amiodarone 200 mg tablet 200 mg PO DAILY 01/05/21 09/22/21 nystatin 100,000 unit/gram topical 1 applic TOPICAL DAILY PRN 02/19/21 09/22/21 powder acetaminophen 325 mg tablet 650 mg PO Q4 PRN tab 08/13/21 09/22/21 diphenhydramine HCl 25 mg capsule 25 mg PO Q6H PRN cap 08/13/21 09/22/21 (Benadryl) docusate sodium 100 mg capsule 100 mg PO BID 08/13/21 09/22/21 (Colace) pantoprazole 40 mg tablet,delayed 40 mg PO DAILY 08/13/21 09/22/21 release cholecalciferol (vitamin D3) 125 125 mcg PO DAILY 08/23/21 09/22/21 mcg (5,000 unit) capsule magnesium oxide 400 mg PO BID 08/23/21 09/22/21 polyethylene glycol 3350 17 17 g PO DAILY PRN 08/27/21 09/22/21 gram/dose oral powder (Miralax) tramadol 50 mg tablet 50 mg PO Q8 PRN 08/27/21 09/22/21 Macrobid 100 mg PO BID 08/31/21 09/22/21 calcium carbonate 500 mg-vitamin 1 tab PO DAILY 08/31/21 09/22/21 D3 5 mcg (200 unit) tablet (Calcium 500 + D) gabapentin 300 mg capsule 600 mg PO Q12 08/31/21 09/22/21 ipratropium 20 mcg-albuterol 100 1 puff INHALATION Q6H PRN 08/31/21 09/22/21 mcg/actuation mist for inhalation (Combivent Respimat) levothyroxine 50 mcg tablet 50 mcg PO DAILY 08/31/21 09/22/21 pramipexole 0.125 mg tablet 0.125 mg PO HS 08/31/21 09/22/21 sennosides 8.6 mg-docusate sodium 1 tab-cap PO DAILY PRN 08/31/21 09/22/21 50 mg tablet (Senna-S) bumetanide 1 mg tablet 2 mg PO DAILY tab 09/13/21 09/22/21 magnesium hydroxide 400 mg/5 mL 5 ml PO DAILY 09/13/21 09/22/21 oral suspension (Milk of Magnesia) spironolactone 50 mg tablet 25 mg PO DAILY 09/22/21 09/22/21 Previous Rx's Medication Instructions Recorded diclofenac sodium 1 % topical gel 2 g TOPICAL QID PRN #2 g 02/19/21 metoprolol succinate 25 mg 12.5 mg PO BID #30 tab 02/19/21 tablet,extended release 24 hr atorvastatin 40 mg tablet 40 mg PO QAM #30 tab 04/22/21 potassium chloride 20 mEq 40 meq PO DAILY #60 tab 06/14/21 tablet,extended release(part/cryst) (Klor-Con M) ferrous sulfate 325 mg (65 mg 325 mg PO Q OTHER DAY #14 tab 08/09/21 iron) tablet aspirin 81 mg chewable tablet 81 mg PO DAILY #30 tab 08/13/21 Results & Data (ED) Vital Signs Vital Signs - 24 hr 09/22/21 07:50 09/22/21 07:52 09/22/21 07:56 Temperature 37.0 C Temperature Source Oral Pulse Rate 48 L 48 L 48 L Pulse Rate [Apical] Pulse Rate from SpO2 Sensor 48 L 48 L Respiratory Rate 14 18 13 Blood Pressure 78/42 L Blood Pressure [Left Arm] Blood Pressure Mean 54 64 Blood Pressure Mean [Left Arm] Pulse Oximetry 96 89 L 97 Oxygen Delivery Method Room Air Oxygen Flow Rate Sepsis Recent Fever Within 48 Hours No Sepsis New/Unexplained Change in Mental Status No Sepsis Action Taken by Nursing No Action Required 09/22/21 07:57 09/22/21 08:00 09/22/21 08:10 Temperature Temperature Source Pulse Rate 48 L 48 L 51 L Pulse Rate [Apical] Pulse Rate from SpO2 Sensor 46 L 47 L 52 L Respiratory Rate 22 17 17 Blood Pressure Blood Pressure [Left Arm] Blood Pressure Mean 67 Blood Pressure Mean [Left Arm] Pulse Oximetry 98 98 100 Oxygen Delivery Method Nasal Cannula Oxygen Flow Rate 4 Sepsis Recent Fever Within 48 Hours Sepsis New/Unexplained Change in Mental Status Sepsis Action Taken by Nursing 09/22/21 08:13 09/22/21 08:20 09/22/21 08:30 Temperature Temperature Source Pulse Rate 60 57 L 55 L Pulse Rate [Apical] 60 Pulse Rate from SpO2 Sensor 60 58 L Respiratory Rate 11 L 21 14 Blood Pressure 96/63 L Blood Pressure [Left Arm] 96/63 L Blood Pressure Mean 74 Blood Pressure Mean [Left Arm] 74 Pulse Oximetry 97 91 Oxygen Delivery Method Oxygen Flow Rate Sepsis Recent Fever Within 48 Hours Sepsis New/Unexplained Change in Mental Status Sepsis Action Taken by Nursing 09/22/21 08:31 09/22/21 08:33 09/22/21 08:40 Temperature Temperature Source Pulse Rate 56 L 54 L Pulse Rate [Apical] 55 L Pulse Rate from SpO2 Sensor 56 L Respiratory Rate 17 17 Blood Pressure 124/68 Blood Pressure [Left Arm] 124/68 Blood Pressure Mean 86 Blood Pressure Mean [Left Arm] 86 Pulse Oximetry 99 Oxygen Delivery Method Oxygen Flow Rate Sepsis Recent Fever Within 48 Hours Sepsis New/Unexplained Change in Mental Status Sepsis Action Taken by Nursing 09/22/21 08:56 09/22/21 09:00 09/22/21 09:01 Temperature Temperature Source Pulse Rate 53 L 53 L Pulse Rate [Apical] 52 L Pulse Rate from SpO2 Sensor Respiratory Rate 17 14 Blood Pressure Blood Pressure [Left Arm] 91/60 L Blood Pressure Mean Blood Pressure Mean [Left Arm] 70 Pulse Oximetry Oxygen Delivery Method Oxygen Flow Rate Sepsis Recent Fever Within 48 Hours Sepsis New/Unexplained Change in Mental Status Sepsis Action Taken by Nursing 09/22/21 09:10 09/22/21 09:15 09/22/21 09:20 Temperature Temperature Source Pulse Rate 47 L 47 L 48 L Pulse Rate [Apical] Pulse Rate from SpO2 Sensor 47 L 47 L 48 L Respiratory Rate 18 17 21 Blood Pressure 70/47 L Blood Pressure [Left Arm] Blood Pressure Mean 54 51 Blood Pressure Mean [Left Arm] Pulse Oximetry 99 100 96 Oxygen Delivery Method Oxygen Flow Rate Sepsis Recent Fever Within 48 Hours Sepsis New/Unexplained Change in Mental Status Sepsis Action Taken by Nursing 09/22/21 09:27 09/22/21 09:30 09/22/21 09:34 Temperature Temperature Source Pulse Rate 51 L 51 L 51 L Pulse Rate [Apical] Pulse Rate from SpO2 Sensor 51 L 51 L 51 L Respiratory Rate 21 15 14 Blood Pressure 71/49 L 73/51 L Blood Pressure [Left Arm] Blood Pressure Mean 56 58 Blood Pressure Mean [Left Arm] Pulse Oximetry 96 99 99 Oxygen Delivery Method Oxygen Flow Rate Sepsis Recent Fever Within 48 Hours Sepsis New/Unexplained Change in Mental Status Sepsis Action Taken by Nursing 09/22/21 09:40 09/22/21 09:43 09/22/21 09:48 Temperature Temperature Source Pulse Rate 50 L Pulse Rate [Apical] 50 L 50 L Pulse Rate from SpO2 Sensor 51 L Respiratory Rate 12 18 Blood Pressure Blood Pressure [Left Arm] 73/51 L 78/52 L Blood Pressure Mean Blood Pressure Mean [Left Arm] 58 60 Pulse Oximetry 100 100 Oxygen Delivery Method Nebulizer Oxygen Flow Rate Sepsis Recent Fever Within 48 Hours Sepsis New/Unexplained Change in Mental Status Sepsis Action Taken by Nursing 09/22/21 09:50 09/22/21 10:00 09/22/21 10:10 Temperature Temperature Source Pulse Rate 50 L 48 L 51 L Pulse Rate [Apical] Pulse Rate from SpO2 Sensor 50 L 48 L 51 L Respiratory Rate 16 15 13 Blood Pressure Blood Pressure [Left Arm] Blood Pressure Mean Blood Pressure Mean [Left Arm] Pulse Oximetry 99 99 100 Oxygen Delivery Method Oxygen Flow Rate Sepsis Recent Fever Within 48 Hours Sepsis New/Unexplained Change in Mental Status Sepsis Action Taken by Nursing 09/22/21 10:16 09/22/21 10:20 09/22/21 10:30 Temperature Temperature Source Pulse Rate 50 L 48 L 47 L Pulse Rate [Apical] Pulse Rate from SpO2 Sensor 50 L 48 L 47 L Respiratory Rate 21 18 16 Blood Pressure 75/49 L 66/29 L Blood Pressure [Left Arm] Blood Pressure Mean 57 41 Blood Pressure Mean [Left Arm] Pulse Oximetry 100 100 100 Oxygen Delivery Method Oxygen Flow Rate Sepsis Recent Fever Within 48 Hours Sepsis New/Unexplained Change in Mental Status Sepsis Action Taken by Nursing 09/22/21 10:40 09/22/21 10:41 09/22/21 10:45 Temperature Temperature Source Pulse Rate 59 L 59 L 62 Pulse Rate [Apical] Pulse Rate from SpO2 Sensor 59 L 59 L 62 Respiratory Rate 11 L 13 12 Blood Pressure 69/43 L 78/53 L Blood Pressure [Left Arm] Blood Pressure Mean 51 61 Blood Pressure Mean [Left Arm] Pulse Oximetry 97 96 95 Oxygen Delivery Method Oxygen Flow Rate Sepsis Recent Fever Within 48 Hours Sepsis New/Unexplained Change in Mental Status Sepsis Action Taken by Nursing 09/22/21 10:49 09/22/21 10:50 09/22/21 10:57 Temperature Temperature Source Pulse Rate 64 65 Pulse Rate [Apical] 75 Pulse Rate from SpO2 Sensor 66 65 Respiratory Rate 10 L 13 Blood Pressure 95/63 L Blood Pressure [Left Arm] 95/63 L Blood Pressure Mean 73 Blood Pressure Mean [Left Arm] 73 Pulse Oximetry 96 97 96 Oxygen Delivery Method Nasal Cannula Oxygen Flow Rate 4 Sepsis Recent Fever Within 48 Hours Sepsis New/Unexplained Change in Mental Status Sepsis Action Taken by Nursing 09/22/21 11:00 09/22/21 11:10 09/22/21 11:20 Temperature Temperature Source Pulse Rate 76 77 75 Pulse Rate [Apical] Pulse Rate from SpO2 Sensor 76 77 75 Respiratory Rate 13 12 12 Blood Pressure 101/59 L Blood Pressure [Left Arm] Blood Pressure Mean 73 Blood Pressure Mean [Left Arm] Pulse Oximetry 95 96 96 Oxygen Delivery Method Oxygen Flow Rate Sepsis Recent Fever Within 48 Hours Sepsis New/Unexplained Change in Mental Status Sepsis Action Taken by Nursing 09/22/21 11:30 09/22/21 11:35 09/22/21 11:40 Temperature Temperature Source Pulse Rate 75 75 Pulse Rate [Apical] 75 Pulse Rate from SpO2 Sensor 75 75 Respiratory Rate 8 L 18 11 L Blood Pressure 92/73 L Blood Pressure [Left Arm] 92/73 L Blood Pressure Mean 79 Blood Pressure Mean [Left Arm] 79 Pulse Oximetry 96 96 96 Oxygen Delivery Method Nasal Cannula Oxygen Flow Rate 4 Sepsis Recent Fever Within 48 Hours Sepsis New/Unexplained Change in Mental Status Sepsis Action Taken by Nursing 09/22/21 11:50 09/22/21 12:00 09/22/21 12:09 Temperature Temperature Source Pulse Rate 74 66 Pulse Rate [Apical] 73 Pulse Rate from SpO2 Sensor 74 66 Respiratory Rate 13 8 L 18 Blood Pressure Blood Pressure [Left Arm] 83/64 L Blood Pressure Mean Blood Pressure Mean [Left Arm] 70 Pulse Oximetry 95 99 96 Oxygen Delivery Method Nasal Cannula Oxygen Flow Rate 4 Sepsis Recent Fever Within 48 Hours Sepsis New/Unexplained Change in Mental Status Sepsis Action Taken by Nursing 09/22/21 12:10 09/22/21 12:15 09/22/21 12:17 Temperature Temperature Source Pulse Rate 75 76 Pulse Rate [Apical] 75 Pulse Rate from SpO2 Sensor 74 74 Respiratory Rate 16 12 18 Blood Pressure 95/65 L Blood Pressure [Left Arm] 95/65 L Blood Pressure Mean 75 Blood Pressure Mean [Left Arm] 75 Pulse Oximetry 96 96 94 Oxygen Delivery Method Nasal Cannula Oxygen Flow Rate 4 Sepsis Recent Fever Within 48 Hours Sepsis New/Unexplained Change in Mental Status Sepsis Action Taken by Nursing 09/22/21 12:20 09/22/21 12:30 09/22/21 12:40 Temperature Temperature Source Pulse Rate 75 73 75 Pulse Rate [Apical] Pulse Rate from SpO2 Sensor 74 74 73 Respiratory Rate 11 L 21 16 Blood Pressure Blood Pressure [Left Arm] Blood Pressure Mean Blood Pressure Mean [Left Arm] Pulse Oximetry 94 96 95 Oxygen Delivery Method Oxygen Flow Rate Sepsis Recent Fever Within 48 Hours Sepsis New/Unexplained Change in Mental Status Sepsis Action Taken by Nursing 09/22/21 12:45 09/22/21 12:50 09/22/21 12:59 Temperature Temperature Source Pulse Rate 73 74 Pulse Rate [Apical] 68 Pulse Rate from SpO2 Sensor 74 74 Respiratory Rate 18 11 L 18 Blood Pressure 98/72 L Blood Pressure [Left Arm] 98/72 L Blood Pressure Mean 80 Blood Pressure Mean [Left Arm] 80 Pulse Oximetry 94 95 95 Oxygen Delivery Method Nasal Cannula Oxygen Flow Rate 4 Sepsis Recent Fever Within 48 Hours Sepsis New/Unexplained Change in Mental Status Sepsis Action Taken by Nursing 09/22/21 13:00 09/22/21 13:10 09/22/21 13:15 Temperature Temperature Source Pulse Rate 77 76 74 Pulse Rate [Apical] Pulse Rate from SpO2 Sensor 75 77 73 Respiratory Rate 19 21 21 Blood Pressure 102/83 101/72 Blood Pressure [Left Arm] Blood Pressure Mean 89 81 Blood Pressure Mean [Left Arm] Pulse Oximetry 96 95 95 Oxygen Delivery Method Oxygen Flow Rate Sepsis Recent Fever Within 48 Hours Sepsis New/Unexplained Change in Mental Status Sepsis Action Taken by Nursing 09/22/21 13:20 09/22/21 13:27 09/22/21 13:30 Temperature Temperature Source Pulse Rate 75 70 Pulse Rate [Apical] 75 Pulse Rate from SpO2 Sensor 73 72 Respiratory Rate 14 15 Blood Pressure Blood Pressure [Left Arm] 101/72 Blood Pressure Mean Blood Pressure Mean [Left Arm] 81 Pulse Oximetry 96 95 Oxygen Delivery Method Oxygen Flow Rate Sepsis Recent Fever Within 48 Hours Sepsis New/Unexplained Change in Mental Status Sepsis Action Taken by Nursing 09/22/21 13:40 09/22/21 13:50 09/22/21 14:00 Temperature Temperature Source Pulse Rate 75 75 75 Pulse Rate [Apical] Pulse Rate from SpO2 Sensor 75 74 77 Respiratory Rate 16 11 L 16 Blood Pressure 99/77 L Blood Pressure [Left Arm] Blood Pressure Mean 84 Blood Pressure Mean [Left Arm] Pulse Oximetry 97 95 93 Oxygen Delivery Method Oxygen Flow Rate Sepsis Recent Fever Within 48 Hours Sepsis New/Unexplained Change in Mental Status Sepsis Action Taken by Nursing 09/22/21 14:10 09/22/21 14:20 09/22/21 14:30 Temperature Temperature Source Pulse Rate 77 77 78 Pulse Rate [Apical] Pulse Rate from SpO2 Sensor 77 77 78 Respiratory Rate 19 14 22 Blood Pressure 103/67 Blood Pressure [Left Arm] Blood Pressure Mean 79 Blood Pressure Mean [Left Arm] Pulse Oximetry 96 94 94 Oxygen Delivery Method Oxygen Flow Rate Sepsis Recent Fever Within 48 Hours Sepsis New/Unexplained Change in Mental Status Sepsis Action Taken by Nursing 09/22/21 14:40 Temperature Temperature Source Pulse Rate 78 Pulse Rate [Apical] Pulse Rate from SpO2 Sensor 78 Respiratory Rate 18 Blood Pressure Blood Pressure [Left Arm] Blood Pressure Mean Blood Pressure Mean [Left Arm] Pulse Oximetry 95 Oxygen Delivery Method Oxygen Flow Rate Sepsis Recent Fever Within 48 Hours Sepsis New/Unexplained Change in Mental Status Sepsis Action Taken by Nursing Laboratory Data Attestation: I reviewed the patient's lab results. Result diagrams: 09/22/21 07:50 09/22/21 07:50 Lab Results 09/22/21 09/22/21 09/22/21 Range/Units 07:50 07:50 07:50 WBC 7.15 (4.8-10.8) K/uL RBC 3.88 L (4.2-5.4) M/uL Hgb 10.7 L (12.0-16.0) g/dL POC Hgb (12.0-16.0) g/dl Hct 33.9 L (37-47) % POC Hct (37-47) % MCV 87.4 (80-100) fL MCH 27.6 (25-34) pg MCHC 31.6 L (32-36) g/dL RDW Std Deviation 72.3 H (36.4-46.3) fL RDW Coeff of Janie 22.6 H (11.5-14.5) % Plt Count 173 (130-400) K/uL MPV 11.3 H (7.4-10.4) fL Immature Gran % (Auto) 0.1 % Neut % (Auto) 71.1 % Lymph % (Auto) 13.8 % [place] % (Auto) 8.5 % Eos % (Auto) 6.2 % Baso % (Auto) 0.3 % Neut # (Auto) 5.08 (1.4-6.5) K/uL Lymph # (Auto) 0.99 L (1.2-3.4) K/uL [place] # (Auto) 0.61 H (0.11-0.59) K/uL Eos # (Auto) 0.44 (0-0.5) K/uL Baso # (Auto) 0.02 (0-0.2) K/uL Immature Gran # (Auto) 0.01 (0.00-0.02) K/uL Poikilocytosis Present Anisocytosis Present PT 12.6 H (9.0-12.0) Seconds INR 1.3 H (0.9-1.1) VBG pH (7.36-7.41) VBG pCO2 (38-50) mmHg VBG pO2 mmHg VBG HCO3 mmol/L VBG O2 Saturation % VBG Base Excess mEq/L Barometric Pressure mm/Hg POC Sodium (135-144) mmol/L Sodium 129 L (136-145) mmol/L POC Potassium (3.3-5.0) mmol/L Potassium 5.9 H (3.5-5.1) mmol/L POC Chloride (101-112) mmol/L Chloride 92 L (98-107) mmol/L Carbon Dioxide 28 (21-32) mmol/L POC Total CO2 (24-31) mmol/L Anion Gap 9 (3-11) POC Anion Gap (16-25) mmol/L POC BUN (7-18) mg/dl BUN 61 H (6-23) mg/dl Creatinine 2.25 H (0.6-1.2) mg/dl POC Creatinine (0.6-1.3) mg/dl Est Cr Clr Drug Dosing 17.2 ml/min Est GFR ( Amer) 24.1 ml/min Est GFR (Non-Af Amer) 20.8 ml/min BUN/Creatinine Ratio 27.1 H (10-20) Glucose 98 (70-99) mg/dl POC Glucose (70-99) mg/dl POC Glucose (other) (70-99) mg/dl Osmolality (280-300) mOsm/kg Calcium 11.3 H (8.5-10.1) mg/dl POC Ioniz Calcium Juan (1.12-1.32) mmol/l Phosphorus 5.5 H (2.5-4.9) mg/dl Magnesium 2.4 (1.7-2.4) mg/dl Total Bilirubin 0.9 (0.2-1.0) mg/dl AST 37 (13-39) U/L ALT 15 (7-52) U/L Alkaline Phosphatase 61 (34-104) U/L Troponin I 0.03 (0-0.04) ng/ml Total Protein 7.7 (6.0-8.3) gm/dl Albumin 3.8 (3.4-5.0) gm/dl Globulin 3.9 (2.5-4.0) gm/dl Albumin/Globulin Ratio 1.0 (0.9-2) Lipase 20 (11-82) U/L TSH 12.836 H (0.300-4.500) uIu/ml Free T4 (0.61-1.60) ng/dl Random Cortisol mcg/dl Urine Color Urine Appearance (Clear) Urine pH (4.5-7.5) Ur Specific [place] (1.000-1.030) Urine Protein (Negative) Urine Glucose (UA) (Negative) Urine Ketones (Negative) Urine Blood (Negative) Urine Nitrite (Negative) Urine Bilirubin (Negative) Urine Urobilinogen (Negative) Ur Leukocyte Esterase (Negative) Urine WBC (Auto) (0-5) /hpf Urine RBC (Auto) (0-4) /hpf U Hyaline Cast (Auto) (0-5) /lpf U Epithel Cells (Auto) (0-5) /lpf Urine Bacteria (Auto) (Negative) Urine Osmolality (500-800) mOsm/kg SARS-CoV-2, RNA, NAAT (NEGATIVE) Blood Type Antibody Screen 09/22/21 09/22/21 09/22/21 Range/Units 07:50 08:15 08:20 WBC (4.8-10.8) K/uL RBC (4.2-5.4) M/uL Hgb (12.0-16.0) g/dL POC Hgb (12.0-16.0) g/dl Hct (37-47) % POC Hct (37-47) % MCV (80-100) fL MCH (25-34) pg MCHC (32-36) g/dL RDW Std Deviation (36.4-46.3) fL RDW Coeff of Janie (11.5-14.5) % Plt Count (130-400) K/uL MPV (7.4-10.4) fL Immature Gran % (Auto) % Neut % (Auto) % Lymph % (Auto) % [place] % (Auto) % Eos % (Auto) % Baso % (Auto) % Neut # (Auto) (1.4-6.5) K/uL Lymph # (Auto) (1.2-3.4) K/uL [place] # (Auto) (0.11-0.59) K/uL Eos # (Auto) (0-0.5) K/uL Baso # (Auto) (0-0.2) K/uL Immature Gran # (Auto) (0.00-0.02) K/uL Poikilocytosis Anisocytosis PT (9.0-12.0) Seconds INR (0.9-1.1) VBG pH (7.36-7.41) VBG pCO2 (38-50) mmHg VBG pO2 mmHg VBG HCO3 mmol/L VBG O2 Saturation % VBG Base Excess mEq/L Barometric Pressure mm/Hg POC Sodium (135-144) mmol/L Sodium (136-145) mmol/L POC Potassium (3.3-5.0) mmol/L Potassium (3.5-5.1) mmol/L POC Chloride (101-112) mmol/L Chloride (98-107) mmol/L Carbon Dioxide (21-32) mmol/L POC Total CO2 (24-31) mmol/L Anion Gap (3-11) POC Anion Gap (16-25) mmol/L POC BUN (7-18) mg/dl BUN (6-23) mg/dl Creatinine (0.6-1.2) mg/dl POC Creatinine (0.6-1.3) mg/dl Est Cr Clr Drug Dosing ml/min Est GFR ( Amer) ml/min Est GFR (Non-Af Amer) ml/min BUN/Creatinine Ratio (10-20) Glucose (70-99) mg/dl POC Glucose (70-99) mg/dl POC Glucose (other) (70-99) mg/dl Osmolality (280-300) mOsm/kg Calcium (8.5-10.1) mg/dl POC Ioniz Calcium Juan (1.12-1.32) mmol/l Phosphorus (2.5-4.9) mg/dl Magnesium (1.7-2.4) mg/dl Total Bilirubin (0.2-1.0) mg/dl AST (13-39) U/L ALT (7-52) U/L Alkaline Phosphatase (34-104) U/L Troponin I (0-0.04) ng/ml Total Protein (6.0-8.3) gm/dl Albumin (3.4-5.0) gm/dl Globulin (2.5-4.0) gm/dl Albumin/Globulin Ratio (0.9-2) Lipase (11-82) U/L TSH (0.300-4.500) uIu/ml Free T4 1.04 (0.61-1.60) ng/dl Random Cortisol mcg/dl Urine Color Urine Appearance (Clear) Urine pH (4.5-7.5) Ur Specific [place] (1.000-1.030) Urine Protein (Negative) Urine Glucose (UA) (Negative) Urine Ketones (Negative) Urine Blood (Negative) Urine Nitrite (Negative) Urine Bilirubin (Negative) Urine Urobilinogen (Negative) Ur Leukocyte Esterase (Negative) Urine WBC (Auto) (0-5) /hpf Urine RBC (Auto) (0-4) /hpf U Hyaline Cast (Auto) (0-5) /lpf U Epithel Cells (Auto) (0-5) /lpf Urine Bacteria (Auto) (Negative) Urine Osmolality (500-800) mOsm/kg SARS-CoV-2, RNA, NAAT NEGATIVE (NEGATIVE) Blood Type A Positive Antibody Screen NEGATIVE 09/22/21 09/22/2122 Range/Units 08:20 08:32 10:10 WBC (4.8-10.8) K/uL RBC (4.2-5.4) M/uL Hgb (12.0-16.0) g/dL POC Hgb 12.2 (12.0-16.0) g/dl Hct (37-47) % POC Hct 36 L (37-47) % MCV (80-100) fL MCH (25-34) pg MCHC (32-36) g/dL RDW Std Deviation (36.4-46.3) fL RDW Coeff of Janie (11.5-14.5) % Plt Count (130-400) K/uL MPV (7.4-10.4) fL Immature Gran % (Auto) % Neut % (Auto) % Lymph % (Auto) % [place] % (Auto) % Eos % (Auto) % Baso % (Auto) % Neut # (Auto) (1.4-6.5) K/uL Lymph # (Auto) (1.2-3.4) K/uL [place] # (Auto) (0.11-0.59) K/uL Eos # (Auto) (0-0.5) K/uL Baso # (Auto) (0-0.2) K/uL Immature Gran # (Auto) (0.00-0.02) K/uL Poikilocytosis Anisocytosis PT (9.0-12.0) Seconds INR (0.9-1.1) VBG pH (7.36-7.41) VBG pCO2 (38-50) mmHg VBG pO2 mmHg VBG HCO3 mmol/L VBG O2 Saturation % VBG Base Excess mEq/L Barometric Pressure mm/Hg POC Sodium 132 L (135-144) mmol/L Sodium (136-145) mmol/L POC Potassium 5.7 H (3.3-5.0) mmol/L Potassium (3.5-5.1) mmol/L POC Chloride 95 L (101-112) mmol/L Chloride (98-107) mmol/L Carbon Dioxide (21-32) mmol/L POC Total CO2 28 (24-31) mmol/L Anion Gap (3-11) POC Anion Gap 16.0 (16-25) mmol/L POC BUN 57 H (7-18) mg/dl BUN (6-23) mg/dl Creatinine (0.6-1.2) mg/dl POC Creatinine 2.3 H (0.6-1.3) mg/dl Est Cr Clr Drug Dosing ml/min Est GFR ( Amer) ml/min Est GFR (Non-Af Amer) ml/min BUN/Creatinine Ratio (10-20) Glucose (70-99) mg/dl POC Glucose (70-99) mg/dl POC Glucose (other) 101 H (70-99) mg/dl Osmolality 303 H (280-300) mOsm/kg Calcium (8.5-10.1) mg/dl POC Ioniz Calcium Juan 1.39 H (1.12-1.32) mmol/l Phosphorus (2.5-4.9) mg/dl Magnesium (1.7-2.4) mg/dl Total Bilirubin (0.2-1.0) mg/dl AST (13-39) U/L ALT (7-52) U/L Alkaline Phosphatase (34-104) U/L Troponin I (0-0.04) ng/ml Total Protein (6.0-8.3) gm/dl Albumin (3.4-5.0) gm/dl Globulin (2.5-4.0) gm/dl Albumin/Globulin Ratio (0.9-2) Lipase (11-82) U/L TSH (0.300-4.500) uIu/ml Free T4 (0.61-1.60) ng/dl Random Cortisol mcg/dl Urine Color Yellow Urine Appearance Clear (Clear) Urine pH 8.0 H (4.5-7.5) Ur Specific [place] 1.012 (1.000-1.030) Urine Protein 1+ H (Negative) Urine Glucose (UA) Negative (Negative) Urine Ketones Negative (Negative) Urine Blood Negative (Negative) Urine Nitrite Negative (Negative) Urine Bilirubin Negative (Negative) Urine Urobilinogen Negative (Negative) Ur Leukocyte Esterase Negative (Negative) Urine WBC (Auto) 1-5 (0-5) /hpf Urine RBC (Auto) 0-4 (0-4) /hpf U Hyaline Cast (Auto) 1-5 (0-5) /lpf U Epithel Cells (Auto) 10-20 H (0-5) /lpf Urine Bacteria (Auto) 1+ H (Negative) Urine Osmolality (500-800) mOsm/kg SARS-CoV-2, RNA, NAAT (NEGATIVE) Blood Type Antibody Screen 09/22/21 09/22/21 09/22/21 Range/Units 10:10 10:43 11:35 WBC (4.8-10.8) K/uL RBC (4.2-5.4) M/uL Hgb (12.0-16.0) g/dL POC Hgb (12.0-16.0) g/dl Hct (37-47) % POC Hct (37-47) % MCV (80-100) fL MCH (25-34) pg MCHC (32-36) g/dL RDW Std Deviation (36.4-46.3) fL RDW Coeff of Janie (11.5-14.5) % Plt Count (130-400) K/uL MPV (7.4-10.4) fL Immature Gran % (Auto) % Neut % (Auto) % Lymph % (Auto) % [place] % (Auto) % Eos % (Auto) % Baso % (Auto) % Neut # (Auto) (1.4-6.5) K/uL Lymph # (Auto) (1.2-3.4) K/uL [place] # (Auto) (0.11-0.59) K/uL Eos # (Auto) (0-0.5) K/uL Baso # (Auto) (0-0.2) K/uL Immature Gran # (Auto) (0.00-0.02) K/uL Poikilocytosis Anisocytosis PT (9.0-12.0) Seconds INR (0.9-1.1) VBG pH (7.36-7.41) VBG pCO2 (38-50) mmHg VBG pO2 mmHg VBG HCO3 mmol/L VBG O2 Saturation % VBG Base Excess mEq/L Barometric Pressure mm/Hg POC Sodium (135-144) mmol/L Sodium (136-145) mmol/L POC Potassium (3.3-5.0) mmol/L Potassium (3.5-5.1) mmol/L POC Chloride (101-112) mmol/L Chloride (98-107) mmol/L Carbon Dioxide (21-32) mmol/L POC Total CO2 (24-31) mmol/L Anion Gap (3-11) POC Anion Gap (16-25) mmol/L POC BUN (7-18) mg/dl BUN (6-23) mg/dl Creatinine (0.6-1.2) mg/dl POC Creatinine (0.6-1.3) mg/dl Est Cr Clr Drug Dosing ml/min Est GFR ( Amer) ml/min Est GFR (Non-Af Amer) ml/min BUN/Creatinine Ratio (10-20) Glucose (70-99) mg/dl POC Glucose 191 H (70-99) mg/dl POC Glucose (other) (70-99) mg/dl Osmolality (280-300) mOsm/kg Calcium (8.5-10.1) mg/dl POC Ioniz Calcium Juan (1.12-1.32) mmol/l Phosphorus (2.5-4.9) mg/dl Magnesium (1.7-2.4) mg/dl Total Bilirubin (0.2-1.0) mg/dl AST (13-39) U/L ALT (7-52) U/L Alkaline Phosphatase (34-104) U/L Troponin I (0-0.04) ng/ml Total Protein (6.0-8.3) gm/dl Albumin (3.4-5.0) gm/dl Globulin (2.5-4.0) gm/dl Albumin/Globulin Ratio (0.9-2) Lipase (11-82) U/L TSH (0.300-4.500) uIu/ml Free T4 (0.61-1.60) ng/dl Random Cortisol 15.02 mcg/dl Urine Color Urine Appearance (Clear) Urine pH (4.5-7.5) Ur Specific [place] (1.000-1.030) Urine Protein (Negative) Urine Glucose (UA) (Negative) Urine Ketones (Negative) Urine Blood (Negative) Urine Nitrite (Negative) Urine Bilirubin (Negative) Urine Urobilinogen (Negative) Ur Leukocyte Esterase (Negative) Urine WBC (Auto) (0-5) /hpf Urine RBC (Auto) (0-4) /hpf U Hyaline Cast (Auto) (0-5) /lpf U Epithel Cells (Auto) (0-5) /lpf Urine Bacteria (Auto) (Negative) Urine Osmolality 366 L (500-800) mOsm/kg SARS-CoV-2, RNA, NAAT (NEGATIVE) Blood Type Antibody Screen 09/22/21 09/22/21 Range/Units 11:35 14:41 WBC (4.8-10.8) K/uL RBC (4.2-5.4) M/uL Hgb (12.0-16.0) g/dL POC Hgb (12.0-16.0) g/dl Hct (37-47) % POC Hct (37-47) % MCV (80-100) fL MCH (25-34) pg MCHC (32-36) g/dL RDW Std Deviation (36.4-46.3) fL RDW Coeff of Janie (11.5-14.5) % Plt Count (130-400) K/uL MPV (7.4-10.4) fL Immature Gran % (Auto) % Neut % (Auto) % Lymph % (Auto) % [place] % (Auto) % Eos % (Auto) % Baso % (Auto) % Neut # (Auto) (1.4-6.5) K/uL Lymph # (Auto) (1.2-3.4) K/uL [place] # (Auto) (0.11-0.59) K/uL Eos # (Auto) (0-0.5) K/uL Baso # (Auto) (0-0.2) K/uL Immature Gran # (Auto) (0.00-0.02) K/uL Poikilocytosis Anisocytosis PT (9.0-12.0) Seconds INR (0.9-1.1) VBG pH 7.32 L (7.36-7.41) VBG pCO2 54 H (38-50) mmHg VBG pO2 42 mmHg VBG HCO3 28 mmol/L VBG O2 Saturation 69.7 % VBG Base Excess 0.6 mEq/L Barometric Pressure 732.1 mm/Hg POC Sodium (135-144) mmol/L Sodium (136-145) mmol/L POC Potassium (3.3-5.0) mmol/L Potassium (3.5-5.1) mmol/L POC Chloride (101-112) mmol/L Chloride (98-107) mmol/L Carbon Dioxide (21-32) mmol/L POC Total CO2 (24-31) mmol/L Anion Gap (3-11) POC Anion Gap (16-25) mmol/L POC BUN (7-18) mg/dl BUN (6-23) mg/dl Creatinine (0.6-1.2) mg/dl POC Creatinine (0.6-1.3) mg/dl Est Cr Clr Drug Dosing ml/min Est GFR ( Amer) ml/min Est GFR (Non-Af Amer) ml/min BUN/Creatinine Ratio (10-20) Glucose (70-99) mg/dl POC Glucose 96 (70-99) mg/dl POC Glucose (other) (70-99) mg/dl Osmolality (280-300) mOsm/kg Calcium (8.5-10.1) mg/dl POC Ioniz Calcium Juan (1.12-1.32) mmol/l Phosphorus (2.5-4.9) mg/dl Magnesium (1.7-2.4) mg/dl Total Bilirubin (0.2-1.0) mg/dl AST (13-39) U/L ALT (7-52) U/L Alkaline Phosphatase (34-104) U/L Troponin I (0-0.04) ng/ml Total Protein (6.0-8.3) gm/dl Albumin (3.4-5.0) gm/dl Globulin (2.5-4.0) gm/dl Albumin/Globulin Ratio (0.9-2) Lipase (11-82) U/L TSH (0.300-4.500) uIu/ml Free T4 (0.61-1.60) ng/dl Random Cortisol mcg/dl Urine Color Urine Appearance (Clear) Urine pH (4.5-7.5) Ur Specific [place] (1.000-1.030) Urine Protein (Negative) Urine Glucose (UA) (Negative) Urine Ketones (Negative) Urine Blood (Negative) Urine Nitrite (Negative) Urine Bilirubin (Negative) Urine Urobilinogen (Negative) Ur Leukocyte Esterase (Negative) Urine WBC (Auto) (0-5) /hpf Urine RBC (Auto) (0-4) /hpf U Hyaline Cast (Auto) (0-5) /lpf U Epithel Cells (Auto) (0-5) /lpf Urine Bacteria (Auto) (Negative) Urine Osmolality (500-800) mOsm/kg SARS-CoV-2, RNA, NAAT (NEGATIVE) Blood Type Antibody Screen Administered Medications Dopamine HCl/Dextrose (Dopamine / D5w) 400 mg in 250 mls @ 13.073 mls/hr IV .Q19H8M NARESH; Protocol Stop: 10/22/21 10:29 Last Titration: 09/22/21 10:45 Dose: 7 mcg/kg/min, 13.1 mls/hr Documented by: [id number] Admin: 09/22/21 10:35 Dose: 2.5 mcg/kg/min, 4.7 mls/hr Documented by: [id number] Cosigned by: [id number] Discontinued Medications Albuterol (Albut/Ipratrop 3mg/0.5mg Neb 3 Ml Vial) 3 ml NEB NOW STA; Protocol Stop: 09/22/21 09:22 Last Admin: 09/22/21 09:37 Dose: 3 ml Documented by: [id number] Atropine Sulfate (Atropine Sulfate 0.1 Mg/Ml 10ml Syr) 0.5 mg IV NOW STA Stop: 09/22/21 08:01 Last Admin: 09/22/21 08:08 Dose: 0.5 mg Documented by: [id number] Atropine Sulfate (Atropine Sulfate 0.1 Mg/Ml 10ml Syr) 1 mg IV NOW STA Stop: 09/22/21 09:19 Last Admin: 09/22/21 09:24 Dose: 1 mg Documented by: [id number] Atropine Sulfate (Atropine Sulfate 0.1 Mg/Ml 10ml Syr) 1 mg IV NOW STA Stop: 09/22/21 10:22 Last Admin: 09/22/21 10:22 Dose: 1 mg Documented by: [id number] Dextrose (Dextrose 50% 50 Ml Syringe) 100 ml IV NOW STA Stop: 09/22/21 09:21 Last Admin: 09/22/21 09:34 Dose: 100 ml Documented by: [id number] Sodium Chloride (Nss) 500 mls @ 999 mls/hr IV .Q31M STA Stop: 09/22/21 08:30 Last Infusion: 09/22/21 08:36 Dose: 0 mls/hr Documented by: [id number] Admin: 09/22/21 08:05 Dose: 999 mls/hr Documented by: [id number] Insulin Human Regular 10 units (/ Syringe) 9.9 mls @ 3 mls/sec IV ONE STA Stop: 09/22/21 09:21 Last Admin: 09/22/21 09:35 Dose: 3 mls/sec Documented by: [id number] Cosigned by: [id number] Sodium Chloride (Nss) 250 mls @ 999 mls/hr IV .Q16M ONE Stop: 09/22/21 09:35 Last Infusion: 09/22/21 09:55 Dose: 0 mls/hr Documented by: [id number] Admin: 09/22/21 09:35 Dose: 999 mls/hr Documented by: [id number] Acetaminophen (Ofirmev) 1,000 mg in 100 mls @ 400 mls/hr IV NOW STA Stop: 09/22/21 09:41 Last Infusion: 09/22/21 09:54 Dose: 0 mls/hr Documented by: [id number] Admin: 09/22/21 09:38 Dose: 400 mls/hr Documented by: [id number] Glucagon 2.5 mg/ Syringe 2.5 mls @ 1 mls/min IV NOW ONE Stop: 09/22/21 11:41 Last Admin: 09/22/21 11:57 Dose: 1 mls/min Documented by: [id number] Insulin Human Regular (Novolin-R Insulin Per Unit Charge) Confirm Administered Dose 10 units .ROUTE .STK-MED ONE Stop: 09/22/21 09:33 Last Admin: 09/22/21 09:40 Dose: Not Given Documented by: [id number] Imaging Data Radiologist's Impression: Chest X-Ray 09/22/21 08:01 XR chest 1V portable CLINICAL HISTORY: Atypical chest pain TECHNIQUE: Single frontal radiograph of the chest was obtained. Comparison: Comparison is made to chest one view 08/30/2021 FINDINGS: No lines and tubes are seen. Cardiomegaly is noted. Calcified aortic knob is seen. Interstitial opacities are seen in the lungs. No evidence of pleural effusion or pneumothorax. IMPRESSION: 1. Interstitial opacities are nonspecific. Attention on CT chest which has been ordered is recommended. 2. Stable cardiomegaly. ACT 112: Negative or not required by law. Electronically signed by: Lamin East M.D. 09/22/2021 8:[address] 09/22/21 08:16 CT OF THE CERVICAL SPINE WITHOUT CONTRAST CLINICAL HISTORY: Neck pain following fall. COMPARISON STUDY: No previous studies for comparison. TECHNIQUE: Helical axial images of the cervical spine were obtained without IV contrast. Sagittal and coronal reconstructions were viewed. Automated exposure control was utilized for the study. A dose lowering technique was utilized adhering to the principles of ALARA. FINDINGS: Alignment of the cervical spine is anatomic. Vertebral body heights are maintained. No acute cervical spine fracture or subluxation is present. There is no prevertebral edema. Facet joints are intact. Slight loss of height of the superior endplate of C5 is chronic. Disc space narrowing is most pronounced at C5-C6. Adjacent endplate irregularity is likely degenerative. IMPRESSION: No acute cervical spine fracture or subluxation. ACT 112: Negative or not required by law. Electronically signed by: Fran Cisse M.D. 09/22/2021 9:[address] 09/22/21 08:16 CT head/brain wo con CLINICAL HISTORY: fall, headstrike, ams Technique: Contiguous axial CT images of the head were acquired from the base of the skull to the vertex without intravenous contrast administration. Images were viewed in brain, subdural and bone windows. Automated dose lowering techniques and/or adjustment according to patient size were utilized for this exam. Comparison: Comparison is made to CT head 02/03/2021 Findings: Areas of decreased attenuation are present in the periventricular and subcortical white matter bilaterally consistent with small vessel ischemic di sease. Generalized cerebral atrophy with commensurate enlargement of the ventricles, sulci, and cisterns is also present. There is no acute intracranial hemorrhage or evidence of acute territorial infarction. No shift of the midline structures, mass effect, or extra-axial abnormalities are shown. A therosclerotic calcifications are present in the intracranial segments of the internal carotid arteries. Imaged portions of the paranasal sinuses and mastoid air cells are clear. The orbits appear normal. There are no acute fractures of the calvaria or scalp swelling. Impression: No acute intracranial hemorrhage, no evidence of acute territorial infarction or other acute intracranial disease process. ACT 112: Negative or not required by law. Electronically signed by: Lamin East M.D. 09/22/2021 9:01 AM Abdomen/Pelvis CT 09/22/21 08:35 CT OF THE ABDOMEN AND PELVIS WITHOUT CONTRAST CLINICAL HISTORY: Abdominal pain following fall. COMPARISON STUDY: CTA of the abdomen and pelvis with bilateral lower extremity runoff August 29, 2020. Right upper quadrant ultrasound August 07, 2021. TECHNIQUE: Axial images of the abdomen and pelvis were obtained without IV contrast. Images were reviewed in the axial, sagittal, and coronal planes. Automated exposure control was utilized for the study. A dose lowering technique was utilized adhering to the principles of ALARA. FINDINGS: The chest CT will be reported separately. Note is made of cardiomegaly with a small pericardial effusion. There are trace bilateral pleural effusions. Evidence for interstitial pulmonary edema within the lower lungs is noted. No pneumatosis, free air or portal venous gas is present. Evaluation of the solid abdominal viscera is suboptimal on this unenhanced exam however is no evidence for traumatic injury to the liver, spleen, adrenal glands, kidneys or pancreas on this exam. Calcification within the right hepatic lobe is incidentally noted. There are gallstones within the gallbladder. A small amount of abdominal and pelvic ascites is noted. Body wall edema is also present. No fluid collection is identified. There is no hydronephrosis. No biliary or pancreatic ductal dilatation is present. There is no evidence for a bowel obstruction. Multiple vascular stents are incidentally noted as well as extensive atherosclerotic calcification. No acute lumbar spine or pelvic fracture is present. No hemoperitoneum is evident. IMPRESSION: 1. No acute traumatic findings within the abdomen or pelvis on unenhanced exam. 2. Small amount of abdominal and pelvic ascites. Body wall edema. 3. Trace bilateral pleural effusions with evidence for interstitial pulmonary edema. Cardiomegaly. 4. Cholelithiasis. ACT 112: Negative or not required by law. Electronically signed by: Fran Cisse M.D. 09/22/2021 9:[address] 09/22/21 08:35 CT chest diagnostic wo con CLINICAL HISTORY: pain fall TECHNIQUE: Multidetector row helical CT of the chest was performed. Coronal and sagittal reformations were obtained. Automated dose lowering techniques and/or adjustment according to patient size were utilized for this exam. Comparison: Comparison is made to CT chest 11/21/2020 and chest 1 view 09/22/2021 FINDINGS: Lungs and pleura: Diffuse emphysematous and scarring changes are seen predominantly in the peripheries of the lung. Heart and pericardium: There is cardiomegaly without evidence of pericardial effusion. Vessels: Severe atherosclerotic changes in the aorta and coronary arteries. Mediastinum and elizabeth: Unremarkable. Chest wall and lower neck: Unremarkable. Abdomen: For findings below the diaphragm, please refer to CT of the abdomen dated the same. Bones: Unremarkable. IMPRESSION: 1. No acute fractures. Diffuse emphysematous and scarring changes predominantly in the peripheries of the lung. No airspace opacity is seen. ACT 112: Negative or not required by law. Electronically signed by: Lamin East M.D. 09/22/2021 9:18 AM Discharge Plan Visit Data Chief Complaint: Fall Stated Complaint: FALL, AMS, HEMATOMA ABOVE L EYE ED Provider: Fabrice Crawford Discharge Problem: Symptomatic bradycardia, Hypercalcemia, Acute hypotension, Acute renal insufficiency, Hyperkalemia, HFrEF (heart failure with reduced ejection fraction), Encephalopathy Forms Stand Alone Forms: [facility] [place] Prescriptions Prescriptions: No Action atorvastatin 40 mg tablet 40 mg PO QAM Qty: 30 RF: 6 potassium chloride [Klor-Con M20] 20 mEq tablet,ER particles/crystals 40 meq PO DAILY Qty: 60 RF: 5 amiodarone 200 mg tablet 200 mg PO DAILY RF: 0 nystatin 100,000 unit/gram powder 1 applic topical DAILY PRN (Reason: Skin Irritation) RF: 0 diclofenac sodium 1 % gel 2 g topical QID PRN (Reason: pain) Qty: 2 RF: 0 metoprolol succinate 25 mg tablet extended release 24 hr 12.5 mg PO BID Qty: 30 RF: 2 cholecalciferol (vitamin D3) 125 mcg (5,000 unit) capsule 125 mcg PO DAILY RF: 0 magnesium oxide 400 mg magnesium capsule 400 mg PO BID RF: 0 polyethylene glycol 3350 [Miralax] 17 gram/dose powder 17 g PO DAILY PRN (Reason: Constipation) RF: 0 tramadol 50 mg tablet 50 mg PO Q8 PRN (Reason: Pain) RF: 0 aspirin 81 mg tablet,chewable 81 mg PO DAILY Qty: 30 RF: 2 pantoprazole 40 mg tablet,delayed release (DR/EC) 40 mg PO DAILY RF: 0 docusate sodium [Colace] 100 mg capsule 100 mg PO BID RF: 0 acetaminophen 325 mg tablet 650 mg PO Q4 PRN (Reason: .Pain 1-3) RF: 0 diphenhydramine HCl [Benadryl] 25 mg capsule 25 mg PO Q6H PRN (Reason: allergies) RF: 0 magnesium hydroxide [Milk of Magnesia] 400 mg/5 mL suspension 5 ml PO DAILY RF: 0 bumetanide 1 mg tablet 2 mg PO DAILY RF: 0 multivitamin with minerals Tablet 1 tab PO QAM RF: 0 sennosides-docusate sodium [Senna-S] 8.6-50 mg Tablet 1 tab-cap PO DAILY PRN (Reason: Constipation) RF: 0 levothyroxine 50 mcg Tablet 50 mcg PO DAILY RF: 0 gabapentin 300 mg Capsule 600 mg PO Q12 RF: 0 calcium carbonate-vitamin D3 [Calcium 500 + D] 500 mg-5 mcg (200 unit) Tablet 1 tab PO DAILY RF: 0 Combivent Respimat 20-100 mcg/actuation Mist 1 puff INHALATION Q6H PRN (Reason: Shortness Of Breath Or Wheezing) RF: 0 Macrobid 100 mg PO BID RF: 0 pramipexole 0.125 mg tablet 0.125 mg PO HS RF: 0 ferrous sulfate 325 mg (65 mg iron) tablet 325 mg PO Q OTHER DAY Qty: 14 RF: 0 spironolactone 50 mg tablet 25 mg PO DAILY RF: 0 Referrals Referrals: Marley Bates MD [Primary Care Provider] -
[2021-09-22 08:32] LABS: Basophils # (auto) 0.02 K/uL (0-0.2); Basophils % (auto) 0.3 %; Eosinophils # (auto) 0.44 K/uL (0-0.5); Eosinophils % (auto) 6.2 %; Hematocrit (blood only) 33.9 % (37-47); Hemoglobin 10.7 g/dL (12.0-16.0); Immature Granulocytes # (auto) 0.01 K/uL (0.00-0.02); Immature Granulocytes % (auto) 0.1 %; Lymphocytes # (auto) 0.99 K/uL (1.2-3.4); Lymphocytes % (auto) 13.8 %; Mean Corpuscular Hemoglobin 27.6 pg (25-34); Mean Corpuscular Hgb Conc 31.6 g/dL (32-36); Mean Corpuscular Volume 87.4 fL (80-100); Mean Platelet Volume 11.3 fL (7.4-10.4); Monocytes # (auto) 0.61 K/uL (0.11-0.59); Monocytes % (auto) 8.5 %; Neutrophils # (auto) 5.08 K/uL (1.4-6.5); Neutrophils % (auto) 71.1 %; Platelet Count 173 K/uL (130-400); RDW Coefficient of Variation 22.6 % (11.5-14.5); RDW Standard Deviation 72.3 fL (36.4-46.3); Red Blood Count 3.88 M/uL (4.2-5.4); White Blood Count 7.15 K/uL (4.8-10.8)
--- NOTE | 2021-09-22 08:39 | Electrocardiogram Report ---
Test Reason : Blood Pressure : / mmHG Vent. Rate : 049 BPM Atrial Rate : 040 BPM P-R Int : 000 ms QRS Dur : 144 ms QT Int : 528 ms P-R-T Axes : 000 142 -20 degrees QTc Int : 476 ms Junctional bradycardia Left bundle branch block Abnormal ECG When compared with ECG of 30-AUG-2021 22:07, Junctional bradycardia has replaced Sinus rhythm Vent. rate has decreased BY 26 BPM Confirmed by Freddie De Leon ([id number]) on 09/22/2021 8:38:46 AM Referred By: Confirmed By:Freddie De Leon
[2021-09-22 08:43] LABS: INR 1.3 (0.9-1.1); Prothrombin Time 12.6 Seconds (9.0-12.0)
[2021-09-22 08:45] LABS: iSTAT Creatinine 2.3 mg/dl (0.6-1.3); iSTAT Hemoglobin 12.2 g/dl (12.0-16.0); iSTAT Ionized Calcium 1.39 mmol/l (1.12-1.32); iSTAT Potassium 5.7 mmol/L (3.3-5.0)
--- NOTE | 2021-09-22 08:46 | XRay Report ---
XR chest 1V portable CLINICAL HISTORY: Atypical chest pain TECHNIQUE: Single frontal radiograph of the chest was obtained. Comparison: Comparison is made to chest one view 08/30/2021 FINDINGS: No lines and tubes are seen. Cardiomegaly is noted. Calcified aortic knob is seen. Interstitial opaci ties are seen in the lungs. No evidence of pleural effusion or pneumothorax. IMPRESSION: 1. Interstitial opacities are nonspecific. Attention on CT chest which has been ordered is recommend ed. 2. Stable cardiomegaly. ACT 112: Negative or not required by law. Electronically signed by: Lamin East M.D. 09/22/2021 8:45 AM
[2021-09-22 08:51] LABS: Anisocytosis Present; Poikilocytosis Present
[2021-09-22 08:54] LABS: Albumin Level 3.8 gm/dl (3.4-5.0); Bilirubin,Total 0.9 mg/dl (0.2-1.0); Calcium 11.3 mg/dl (8.5-10.1); Globulin 3.9 gm/dl (2.5-4.0); Phosphorus 5.5 mg/dl (2.5-4.9); Potassium 5.9 mmol/L (3.5-5.1); Total Protein 7.7 gm/dl (6.0-8.3)
--- NOTE | 2021-09-22 09:03 | CT Scan Report ---
CT head/brain wo con CLINICAL HISTORY: fall, headstrike, ams Technique: Contiguous axial CT images of the head were acquired from the base of the skull to the sandor julio without intravenous contrast administration. Images were viewed in brain, subdural and [facility]. Automated dose lowering techniques and/or adjustment according to patient size were utilized for this exam. Comparison: Comparison is made to CT head 02/03/2021 Findings: Areas of decreased attenuation are present in the periventricular and subcortical white matter bilate rally consistent with small vessel ischemic disease. Generalized cerebral atrophy with commensurate e nlargement of the ventricles, sulci, and cisterns is also present. There is no acute intracranial hem orrhage or evidence of acute territorial infarction. No shift of the midline structures, mass effect, or extra-axial abnormalities are shown. Atherosclerotic calcifications are present in the intracran ial segments of the internal carotid arteries. Imaged portions of the paranasal sinuses and mastoid air cells are clear. The orbits appear normal. There are no acute fractures of the calvaria or scalp swelling. Impression: No acute intracranial hemorrhage, no evidence of acute territorial infarction or other acute intracra nial disease process. ACT 112: Negative or not required by law. Electronically signed by: Lamin East M.D. 09/22/2021 9:01 AM
--- NOTE | 2021-09-22 09:04 | CT Scan Report ---
CT OF THE CERVICAL SPINE WITHOUT CONTRAST CLINICAL HISTORY: Neck pain following fall. COMPARISON STUDY: No previous studies for comparison. TECHNIQUE: Helical axial images of the cervical spine were obtained without IV contrast. Sagittal a nd coronal reconstructions were viewed. Automated exposure control was utilized for the study. A do se lowering technique was utilized adhering to the principles of ALARA. FINDINGS: Alignment of the cervical spine is anatomic. Vertebral body heights are maintained. No acut e cervical spine fracture or subluxation is present. There is no prevertebral edema. Facet joints are intact. Slight loss of height of the superior endplate of C5 is chronic. Disc space narrowing is mo st pronounced at C5-C6. Adjacent endplate irregularity is likely degenerative. IMPRESSION: No acute cervical spine fracture or subluxation. ACT 112: Negative or not required by law. Electronically signed by: Fran Cisse M.D. 09/22/2021 9:03 AM
--- NOTE | 2021-09-22 09:17 | CT Scan Report ---
CT OF THE ABDOMEN AND PELVIS WITHOUT CONTRAST CLINICAL HISTORY: Abdominal pain following fall. COMPARISON STUDY: CTA of the abdomen and pelvis with bilateral lower extremity runoff August 29. Right upper quadrant ultrasound August 07, 2021. TECHNIQUE: Axial images of the abdomen and pelvis were obtained without IV contrast. Images were revi ewed in the axial, sagittal, and coronal planes. Automated exposure control was utilized for the jesus dy. A dose lowering technique was utilized adhering to the principles of ALARA. FINDINGS: The chest CT will be reported separately. Note is made of cardiomegaly with a small pericar dial effusion. There are trace bilateral pleural effusions. Evidence for interstitial pulmonary edema within the lower lungs is noted. No pneumatosis, free air or portal venous gas is present. Evaluatio n of the solid abdominal viscera is suboptimal on this unenhanced exam however is no evidence for tra umatic injury to the liver, spleen, adrenal glands, kidneys or pancreas on this exam. Calcification w ithin the right hepatic lobe is incidentally noted. There are gallstones within the gallbladder. A sm all amount of abdominal and pelvic ascites is noted. Body wall edema is also present. No fluid collec tion is identified. There is no hydronephrosis. No biliary or pancreatic ductal dilatation is present . There is no evidence for a bowel obstruction. Multiple vascular stents are incidentally noted as we ll as extensive atherosclerotic calcification. No acute lumbar spine or pelvic fracture is present. N o hemoperitoneum is evident. IMPRESSION: 1. No acute traumatic findings within the abdomen or pelvis on unenhanced exam. 2. Small amount of abdominal and pelvic ascites. Body wall edema. 3. Trace bilateral pleural effusions with evidence for interstitial pulmonary edema. Cardiomegaly. 4. Cholelithiasis. ACT 112: Negative or not required by law. Electronically signed by: Fran Cisse M.D. 09/22/2021 9:15 AM
--- NOTE | 2021-09-22 09:19 | CT Scan Report ---
CT chest diagnostic wo con CLINICAL HISTORY: pain fall TECHNIQUE: Multidetector row helical CT of the chest was performed. Coronal and sagittal reformations were obtained. Automated dose lowering techniques and/or adjustment according to patient size were u tilized for this exam. Comparison: Comparison is made to CT chest 11/21/2020 and chest 1 view 09/22/2021 FINDINGS: Lungs and pleura: Diffuse emphysematous and scarring changes are seen predominantly in the peripherie s of the lung. Heart and pericardium: There is cardiomegaly without evidence of pericardial effusion. Vessels: Severe atherosclerotic changes in the aorta and coronary arteries. Mediastinum and elizabeth: Unremarkable. Chest wall and lower neck: Unremarkable. Abdomen: For findings below the diaphragm, please refer to CT of the abdomen dated the same. Bones: Unremarkable. IMPRESSION: 1. No acute fractures. Diffuse emphysematous and scarring changes predominantly in the peripheries o f the lung. No airspace opacity is seen. ACT 112: Negative or not required by law. Electronically signed by: Lamin East M.D. 09/22/2021 9:18 AM
[2021-09-22] MEDS ORDERED: DEXTROSE 50% 50 ML SYRINGE IV STA (09:20)
[2021-09-22] MEDS ORDERED: INSULIN HUMAN REGULAR PER UNIT 10 UNITS in SYRINGE 9.9 ML IV STA (09:20)
[2021-09-22] MEDS ORDERED: SODIUM CHLORIDE 0.9% 250 ML IV ONE (09:20)
[2021-09-22] MEDS ORDERED: ALBUT/IPRATROP 3MG/0.5MG NEB 3 ML VIAL NEB STA (09:21)
[2021-09-22 09:22] LABS: BUN Creatinine Ratio 27.1 (10-20); Creatinine Clr Calc Pharmacy 17.2 ml/min; Est GFR (African American) 24.1 ml/min; Est GFR (Non-African American) 20.8 ml/min; Magnesium 2.4 mg/dl (1.7-2.4)
[2021-09-22] MEDS ORDERED: ACETAMINOPHEN 1,000 MG/100 ML VIAL IV STA (09:27)
[2021-09-22] MEDS ORDERED: NovoLIN-R INSULIN PER UNIT CHARGE ONE (09:32)
--- NOTE | 2021-09-22 10:10 | History & Physical Report ---
Date of Service September 22, 2021 Assessment & Plan (1) Bradycardia: Plan: Symptomatic bradycardia Hypercarbic with VBG pCO2 at 54, increased from patient's baseline recorded as 41 in November 2020, troponin 0.3, TSH 12.8 DDx includes drug-induced (metoprolol, amiodarone) due to poor renal perfusion/clearance vs cardiogenic shock vs KS/myocardial ischemia. Unlikely to be neurogenic in nature as CT imaging of head and neck is unremarkable for acute mass/hemorrhage/infarction. Unlikely to be due to hypoxia or hypothermia as SpO2 and temperature have been WNL since arrival to the emergency department. Hypothyroidism potentially a contributing factor but unlikely primary cause of bradycardia. Accidental or intentional b-андрей overdose is unlikely as patient's medications are administered by faculty at her nursing facility. Patient is not on any other medications that are known to cause bradycardia. Lyme disease is a potential cause of bradycardia but unlikely to be the cause in this patient who has no known or suspected tick bites and no history of Lyme disease. Continue dopamine 7 mcg/kg/min to maintain adequate HR and SBP. Will also administer half-dose of glucagon in an effort to reverse the effects of beta андрей. 0.9% NS IVF at 65 ml/hr for volume repletion. Repeat troponin @ 1600 Synthroid 25 mcg IV ordered (2) Hypotension: Plan: Symptomatic hypotension likely secondary to bradycardia See above (3) Biventricular congestive heart failure: Plan: Hold diuretics due to pt's bradycardia and hypotension. 0.9% NS IVF at 60cc/hr for volume repletion. Echo ordered to evaluate pt's current EF. (4) Encephalopathy: Plan: Likely hypoxic-ischemic secondary to prolonged bradycardia and hypotension, unlikely to be CVA as patient is moving limbs appropriately. CT of head and neck was unremarkable for acute mass/bleed/large vessel stroke. No cervical fracture noted on c-spine CT Patient became more arousable this afternoon as BP and HR stabilized. No need for MRI imaging for further investigation at this time. (5) Acute kidney injury: Plan: Acute on chornic, JIGNA stage 2 based on rise in serum Cr from baseline Cr 1-1.2 to 2.25 today. BUN/C 61/2.25 respectively, GFR 20.8ml/hr, so there is concern for impaired renal perfusion leading to decreased renal function, causing medication buildup/impaired clearance leading to patient's bradycardia. 0.9% NS IVF at 60cc/hr for kidney reperfusion. Repeat BMP @ 1600 (6) Hypercalcemia: Plan: Ca 11.3, ionized 1.39. 0.9NS IVF at 60cc/hr ordered. Repeat ionized Ca in AM (7) Hyponatremia: Plan: Na 129, serum osmolality 303. Likely due to decreased volume status given serum osmolality 0.9NS IVF at 60cc/hr ordered. Repeat BMP @ 1600 (8) Paroxysmal atrial fibrillation: Plan: Hold metoprolol and amiodarone due to bradycardia and hypotension. (9) Hypothyroid: Plan: TSH 12.8. Elevated TSH may be a contributing factor to patient's bradycardia but unlikely to be primary cause. 25 mcg IV Synthroid ordered. History of Present Illness Chief Complaint: Symptomatic bradycardia Primary Care Provider: Marley Bates MD Patient is a 76 y/o female with a PMH of systolic biventricular heart failure with EF 15-20% declining ICD, hypothyroidism, paroxysmal a-fibb, PAD s/p femoral-tibial bypass who presented today from nursing facility, after an unwitnessed around 0500 this morning. Etiology of fall is unknown as ihstory is limited due to patient's current state. Patient was reportedly confused and somnolent on upon initial evaluation in ED and vitals were significant for SBP in 70s, HR in the 40s. Was temporarily stabilized with atropine, was sent to CT scan for imaging of head and neck which was unremarkable for acute mass/bleed/large vessel stroke. No cervical fracture noted on c-spine CT. She remained bradycardic into the 40s with SBP in 70s. Hospitalist team was consulted at this time, who recommended treating pt's bradycardia with dopamine or epinephrine and attempting reversal of beta андрей with half-dose glucagon. Dopamine was initially given 5 mcg/kg, then increased to 7 mcg/kg/min. VS were stabilized, HR increased to 70s and SBP 90s. Patient will be admitted to PCU/telemetry on fixed dose dopamine with an attempt to wean off and identify underlying cause of bradycardia. If underlying cause is reversible, i.e medication induced/toxin induced then this should be short lived vasopressor support. If this is worsening of underlying heart failure or worse, then we will initiate palliation. Zackery Tyler NP with hospitalist team called patient's son and discussed the patient's current condition, as well as likely causes, potential treatments, as well as short and terminologist outcomes. He also discussed patient's wishes with son, who stated his mother would want to pursue any treatment that would potentially reverse her current conditions, but would not wish to pursue any aggressive measures or placement of permanent rate/rhythm devices, as she has currently denied these in the past. Labs are significant for BUN 61, Cr 2.3, Na 129, K 5.9, Ca 11.3. TSH 12.8, PT 12.6, INR 1.3. Troponin 0.3. EKG revealed junctional bradycardia Left bundle branch block Abnormal ECG When compared with ECG of 30-AUG-2021 22:07, Junctional bradycardia has replaced Sinus rhythm Vent. rate has decreased BY 26 BPM. Allergies Allergy/AdvReac Type Severity Reaction Status Date / Time Penicillins Allergy Intermediate Hives Verified 09/13/21 15:43 ciprofloxacin Allergy Hives Unverified 09/22/21 10:58 Home Medications Medication Instructions Recorded Confirmed Type multivitamin with minerals 1 tab PO QAM 09/26/20 09/22/21 History amiodarone 200 mg tablet 200 mg PO DAILY 01/05/21 09/22/21 History diclofenac sodium 1 % topical gel 2 g TOPICAL QID PRN #2 g 02/19/21 09/22/21 Rx metoprolol succinate 25 mg 12.5 mg PO BID #30 tab 02/19/21 09/22/21 Rx tablet,extended release 24 hr nystatin 100,000 unit/gram topical 1 applic TOPICAL DAILY PRN 02/19/21 09/22/21 History powder atorvastatin 40 mg tablet 40 mg PO QAM #30 tab 04/22/21 09/22/21 Rx potassium chloride 20 mEq 40 meq PO DAILY #60 tab 06/14/21 09/22/21 Rx tablet,extended release(part/cryst) (Klor-Con M) ferrous sulfate 325 mg (65 mg 325 mg PO Q OTHER DAY #14 tab 08/09/21 09/22/21 Rx iron) tablet acetaminophen 325 mg tablet 650 mg PO Q4 PRN tab 08/13/21 09/22/21 History aspirin 81 mg chewable tablet 81 mg PO DAILY #30 tab 08/13/21 09/22/21 Rx diphenhydramine HCl 25 mg capsule 25 mg PO Q6H PRN cap 08/13/21 09/22/21 History (Benadryl) docusate sodium 100 mg capsule 100 mg PO BID 08/13/21 09/22/21 History (Colace) pantoprazole 40 mg tablet,delayed 40 mg PO DAILY 08/13/21 09/22/21 History release cholecalciferol (vitamin D3) 125 125 mcg PO DAILY 08/23/21 09/22/21 History mcg (5,000 unit) capsule magnesium oxide 400 mg PO BID 08/23/21 09/22/21 History polyethylene glycol 3350 17 17 g PO DAILY PRN 08/27/21 09/22/21 History gram/dose oral powder (Miralax) tramadol 50 mg tablet 50 mg PO Q8 PRN 08/27/21 09/22/21 History Macrobid 100 mg PO BID 08/31/21 09/22/21 History calcium carbonate 500 mg-vitamin 1 tab PO DAILY 08/31/21 09/22/21 History D3 5 mcg (200 unit) tablet (Calcium 500 + D) gabapentin 300 mg capsule 600 mg PO Q12 08/31/21 09/22/21 History ipratropium 20 mcg-albuterol 100 1 puff INHALATION Q6H PRN 08/31/21 09/22/21 History mcg/actuation mist for inhalation (Combivent Respimat) levothyroxine 50 mcg tablet 50 mcg PO DAILY 08/31/21 09/22/21 History pramipexole 0.125 mg tablet 0.125 mg PO HS 08/31/21 09/22/21 History sennosides 8.6 mg-docusate sodium 1 tab-cap PO DAILY PRN 08/31/21 09/22/21 History 50 mg tablet (Senna-S) bumetanide 1 mg tablet 2 mg PO DAILY tab 09/13/21 09/22/21 History magnesium hydroxide 400 mg/5 mL 5 ml PO DAILY 09/13/21 09/22/21 History oral suspension (Milk of Magnesia) spironolactone 50 mg tablet 25 mg PO DAILY 09/22/21 09/22/21 History Past Med/Surg History Medical History Acute kidney injury Anemia chronic, baseline hgb 10's Arthritis Chronic reflux esophagitis controlled Depression Dyslipidemia Hypercalcemia Hypertension Hypokalemia LBBB (left bundle branch block) dating back to 08/2020 DC EKG On apixaban therapy Osteopenia Palliative care encounter Peripheral arterial disease Bilateral Common Iliac Artery Stenting(Bilateral), Bilateral Femoral Artery Endarterectomy with Bovine Patch (08/2020) Peripheral neuropathy Pulmonary nodule per records, pt denies RLS (restless legs syndrome) Sleep apnea no device Vitamin D deficiency Weakness Surgical History H/O endarterectomy Bilateral Common Iliac Artery Stenting(Bilateral), Bilateral Femoral Artery Endarterectomy with Bovine Patch: 08/26/20: Grade 2 view, MAC 3.0, ETT 7.0 at [facility] History of appendectomy History of carpal tunnel release of both wrists History of colonoscopy History of tooth extraction Hx of hysterectomy S/P femoral-tibial bypass Family History Mother Hypertension Father Hypertension Sister Hypertension Allergies Brother Hypertension Grandfather (Maternal) Heart disease Grandmother (Maternal) Heart disease Other No family history of adverse response to anesthesia No family history of bleeding disorder Social History Smoking Status: Smoker, status unknown Tobacco Type: Cigarettes Age Started Using Tobacco: 7; Cigarettes Per Day: 3; Second Hand Exposure: No; Do You Dip or Chew Tobacco: No; Tobacco Cessation Education Requested by Patient: No Hx Alcohol Use: Yes Alcohol type: beer Alcohol Intake Frequency Comment: Typically 2 beers each day Hx Substance Use: No Preferred Language: Qatari Communication Ability: Obtunded Visual Impairment: No Limitations Hearing Ability: Hard of Hearing Substance Abuse Prevention Coordinator Required: No Beliefs That Will Affect Care: None marital status: Current Living Situation: Rehab Current Living Situation Comment: - [facility] current occupational status: retired How many Children do You have: 1 Feels Safe at Home: Yes Assistive Devices: Walker Review of Systems Review of Systems: Unobtainable due to cognitive status Physical Exam Constitutional: + ill appearing and + lethargic Eyes: PERRL, conjunctivae normal, anicteric sclerae ENMT: external ear and nose normal, oropharynx normal Neck: trachea midline, no thyromegaly normal visual inspection Respiratory: normal respiratory effort, lungs clear to auscultation Cardiovascular: Rate/Rhythm: regular rhythm and + bradycardic Vessels: no JVD Gastrointestinal (Abdomen): normal bowel sounds, soft, nontender, no hepatosplenomegaly Inspection/Auscultation: abdomen normal to inspection Musculoskeletal: no cyanosis or clubbing, extremities motor strength 5/5 Skin: no rashes, warm and dry Neurologic: patellar DTR's 2+ bilat, sensation intact and PERRL, EOMI, accommodation nl, no face palsy, no dysarthria Psychiatric: Transient orientation to self, place reported by staff. Patient was somnolent but arousable at the time of my exam. Results & Data Results & Data ([facility]) Vital Signs (Past 12 Hours) Vital Signs Temp Pulse Pulse Resp BP BP Pulse Ox 09/22/21 09:48 50 L 78/52 L 09/22/21 09:43 50 L 18 73/51 L 100 09/22/21 09:01 52 L 91/60 L 09/22/21 08:33 55 L 124/68 09/22/21 08:13 60 18 96/63 L 09/22/21 08:10 100 09/22/21 07:52 37.0 C 48 L 18 78/42 L 89 L Laboratory Results Abnormal lab results 09/22/21 09/22/21 09/22/21 Range/Units 07:50 07:50 07:50 RBC 3.88 L (4.2-5.4) M/uL Hgb 10.7 L (12.0-16.0) g/dL Hct 33.9 L (37-47) % POC Hct (37-47) % MCHC 31.6 L (32-36) g/dL RDW Std Deviation 72.3 H (36.4-46.3) fL RDW Coeff of Janie 22.6 H (11.5-14.5) % MPV 11.3 H (7.4-10.4) fL Lymph # (Auto) 0.99 L (1.2-3.4) K/uL Bates # (Auto) 0.61 H (0.11-0.59) K/uL PT 12.6 H (9.0-12.0) Seconds INR 1.3 H (0.9-1.1) POC Sodium (135-144) mmol/L Sodium 129 L (136-145) mmol/L POC Potassium (3.3-5.0) mmol/L Potassium 5.9 H (3.5-5.1) mmol/L POC Chloride (101-112) mmol/L Chloride 92 L (98-107) mmol/L POC BUN (7-18) mg/dl BUN 61 H (6-23) mg/dl Creatinine 2.25 H (0.6-1.2) mg/dl POC Creatinine (0.6-1.3) mg/dl BUN/Creatinine Ratio 27.1 H (10-20) POC Glucose (70-99) mg/dl POC Glucose (other) (70-99) mg/dl Osmolality (280-300) mOsm/kg Calcium 11.3 H (8.5-10.1) mg/dl POC Ioniz Calcium Juan (1.12-1.32) mmol/l Phosphorus 5.5 H (2.5-4.9) mg/dl TSH 12.836 H (0.300-4.500) uIu/ml Urine pH (4.5-7.5) Urine Protein (Negative) U Epithel Cells (Auto) (0-5) /lpf Urine Bacteria (Auto) (Negative) 09/22/21 09/22/21 09/22/21 Range/Units 08:20 08:32 10:10 RBC (4.2-5.4) M/uL Hgb (12.0-16.0) g/dL Hct (37-47) % POC Hct 36 L (37-47) % MCHC (32-36) g/dL RDW Std Deviation (36.4-46.3) fL RDW Coeff of Janie (11.5-14.5) % MPV (7.4-10.4) fL Lymph # (Auto) (1.2-3.4) K/uL Bates # (Auto) (0.11-0.59) K/uL PT (9.0-12.0) Seconds INR (0.9-1.1) POC Sodium 132 L (135-144) mmol/L Sodium (136-145) mmol/L POC Potassium 5.7 H (3.3-5.0) mmol/L Potassium (3.5-5.1) mmol/L POC Chloride 95 L (101-112) mmol/L Chloride (98-107) mmol/L POC BUN 57 H (7-18) mg/dl BUN (6-23) mg/dl Creatinine (0.6-1.2) mg/dl POC Creatinine 2.3 H (0.6-1.3) mg/dl BUN/Creatinine Ratio (10-20) POC Glucose (70-99) mg/dl POC Glucose (other) 101 H (70-99) mg/dl Osmolality 303 H (280-300) mOsm/kg Calcium (8.5-10.1) mg/dl POC Ioniz Calcium Juan 1.39 H (1.12-1.32) mmol/l Phosphorus (2.5-4.9) mg/dl TSH (0.300-4.500) uIu/ml Urine pH 8.0 H (4.5-7.5) Urine Protein 1+ H (Negative) U Epithel Cells (Auto) 10-20 H (0-5) /lpf Urine Bacteria (Auto) 1+ H (Negative) 09/22/21 Range/Units 10:43 RBC (4.2-5.4) M/uL Hgb (12.0-16.0) g/dL Hct (37-47) % POC Hct (37-47) % MCHC (32-36) g/dL RDW Std Deviation (36.4-46.3) fL RDW Coeff of Janie (11.5-14.5) % MPV (7.4-10.4) fL Lymph # (Auto) (1.2-3.4) K/uL Bates # (Auto) (0.11-0.59) K/uL PT (9.0-12.0) Seconds INR (0.9-1.1) POC Sodium (135-144) mmol/L Sodium (136-145) mmol/L POC Potassium (3.3-5.0) mmol/L Potassium (3.5-5.1) mmol/L POC Chloride (101-112) mmol/L Chloride (98-107) mmol/L POC BUN (7-18) mg/dl BUN (6-23) mg/dl Creatinine (0.6-1.2) mg/dl POC Creatinine (0.6-1.3) mg/dl BUN/Creatinine Ratio (10-20) POC Glucose 191 H (70-99) mg/dl POC Glucose (other) (70-99) mg/dl Osmolality (280-300) mOsm/kg Calcium (8.5-10.1) mg/dl POC Ioniz Calcium Juan (1.12-1.32) mmol/l Phosphorus (2.5-4.9) mg/dl TSH (0.300-4.500) uIu/ml Urine pH (4.5-7.5) Urine Protein (Negative) U Epithel Cells (Auto) (0-5) /lpf Urine Bacteria (Auto) (Negative) Diagnostic Findings Chest X-Ray 09/22/21 08:01 XR chest 1V portable CLINICAL HISTORY: Atypical chest pain TECHNIQUE: Single frontal radiograph of the chest was obtained. Comparison: Comparison is made to chest one view 08/30/2021 FINDINGS: No lines and tubes are seen. Cardiomegaly is noted. Calcified aortic knob is seen. Interstitial opacities are seen in the lungs. No evidence of pleural effusion or pneumothorax. IMPRESSION: 1. Interstitial opacities are nonspecific. Attention on CT chest which has been ordered is recommended. 2. Stable cardiomegaly. ACT 112: Negative or not required by law. Electronically signed by: Lamin East M.D. 09/22/2021 8:[address] 09/22/21 08:16 CT OF THE CERVICAL SPINE WITHOUT CONTRAST CLINICAL HISTORY: Neck pain following fall. COMPARISON STUDY: No previous studies for comparison. TECHNIQUE: Helical axial images of the cervical spine were obtained without IV contrast. Sagittal and coronal reconstructions were viewed. Automated exposure control was utilized for the study. A dose lowering technique was utilized adhering to the principles of ALARA. FINDINGS: Alignment of the cervical spine is anatomic. Vertebral body heights are maintained. No acute cervical spine fracture or subluxation is present. There is no prevertebral edema. Facet joints are intact. Slight loss of height of the superior endplate of C5 is chronic. Disc space narrowing is most pronounced at C5-C6. Adjacent endplate irregularity is likely degenerative. IMPRESSION: No acute cervical spine fracture or subluxation. ACT 112: Negative or not required by law. Electronically signed by: Fran Cisse M.D. 09/22/2021 9:[address] 09/22/21 08:16 CT head/brain wo con CLINICAL HISTORY: fall, headstrike, ams Technique: Contiguous axial CT images of the head were acquired from the base of the skull to the vertex without intravenous contrast administration. Images were viewed in brain, subdural and bone windows. Automated dose lowering techniques and/or adjustment according to patient size were utilized for this exam. Comparison: Comparison is made to CT head 02/03/2021 Findings: Areas of decreased attenuation are present in the periventricular and subcortical white matter bilaterally consistent with small vessel ischemic disease. Generalized cerebral atrophy with commensurate enlargement of the ventricles, sulci, and cisterns is also present. There is no acute intracranial hemorrhage or evidence of acute territorial infarction. No shift of the midline structures, mass effect, or extra-axial abnormalities are shown. Atherosclerotic calcifications are present in the intracranial segments of the internal carotid arteries. Imaged portions of the paranasal sinuses and mastoid air cells are clear. The orbits appear normal. There are no acute fractures of the calvaria or scalp swelling. Impression: No acute intracranial hemorrhage, no evidence of acute territorial infarction or other acute intracranial disease process. ACT 112: Negative or not required by law. Electronically signed by: Lamin East M.D. 09/22/2021 9:01 AM Abdomen/Pelvis CT 09/22/21 08:35 CT OF THE ABDOMEN AND PELVIS WITHOUT CONTRAST CLINICAL HISTORY: Abdominal pain following fall. COMPARISON STUDY: CTA of the abdomen and pelvis with bilateral lower extremity runoff August 29, 2020. Right upper quadrant ultrasound August 07, 2021. TECHNIQUE: Axial images of the abdomen and pelvis were obtained without IV contrast. Images were reviewed in the axial, sagittal, and coronal planes. Automated exposure control was utilized for the study. A dose lowering technique was utilized adhering to the principles of ALARA. FINDINGS: The chest CT will be reported separately. Note is made of cardiomegaly with a small pericardial effusion. There are trace bilateral pleural effusions. Evidence for interstitial pulmonary edema within the lower lungs is noted. No pneumatosis, free air or portal venous gas is present. Evaluation of the solid abdominal viscera is suboptimal on this unenhanced exam however is no evidence for traumatic injury to the liver, spleen, adrenal glands, kidneys or pancreas on this exam. Calcification within the right hepatic lobe is incidentally noted. There are gallstones within the gallbladder. A small amount of abdominal and pelvic ascites is noted. Body wall edema is also present. No fluid collection is identified. There is no hydronephrosis. No biliary or pancreatic ductal dilatation is present. There is no evidence for a bowel obstruction. Multiple vascular stents are incidentally noted as well as extensive atherosclerotic calcification. No acute lumbar spine or pelvic fracture is present. No hemoperitoneum is evident. IMPRESSION: 1. No acute traumatic findings within the abdomen or pelvis on unenhanced exam. 2. Small amount of abdominal and pelvic ascites. Body wall edema. 3. Trace bilateral pleural effusions with evidence for interstitial pulmonary edema. Cardiomegaly. 4. Cholelithiasis. ACT 112: Negative or not required by law. Electronically signed by: Fran Cisse M.D. 09/22/2021 9:[address] 09/22/21 08:35 CT chest diagnostic wo con CLINICAL HISTORY: pain fall TECHNIQUE: Multidetector row helical CT of the chest was performed. Coronal and sagittal reformations were obtained. Automated dose lowering techniques and/or adjustment according to patient size were utilized for this exam. Comparison: Comparison is made to CT chest 11/21/2020 and chest 1 view 09/22/2021 FINDINGS: Lungs and pleura: Diffuse emphysematous and scarring changes are seen predominantly in the peripheries of the lung. Heart and pericardium: There is cardiomegaly without evidence of pericardial effusion. Vessels: Severe atherosclerotic changes in the aorta and coronary arteries. Mediastinum and elizabeth: Unremarkable. Chest wall and lower neck: Unremarkable. Abdomen: For findings below the diaphragm, please refer to CT of the abdomen dated the same. Bones: Unremarkable. IMPRESSION: 1. No acute fractures. Diffuse emphysematous and scarring changes predominantly in the peripheries of the lung. No airspace opacity is seen. ACT 112: Negative or not required by law. Electronically signed by: Lamin East M.D. 09/22/2021 9:18 AM ECG Additional Comments: Junctional bradycardia Left bundle branch block Abnormal ECG When compared with ECG of 30-AUG-2021 22:07, Junctional bradycardia has replaced Sinus rhythm Vent. rate has decreased BY 26 BPM Confirmed by Freddie De Leon ([id number]) on 09/22/2021 8:38:46 AM Sinus rhythm Left bundle branch block Abnormal ECG When compared with ECG of 22-SEP-2021 07:46, HR has increased by 25 bpm Junctional bradycardia no longer present Confirmed by Freddie De Leon ([id number]) on 09/22/2021 1:52:11 PM Code Status & VTE Plan VTE Prophylaxis Plan VTE Prophylaxis will be ordered: Yes Critical Care Time 30 minutes Supervising Physician Co-Signing Physician Notes Patient was seen and examined independently I discussed the case with Jaime AGUDELO I reviewed pertinent past medical social family history and also the plan of care and agree with the plan of care. Patient came in unresponsive with symptomatic bradycardia while on amiodarone and metoprolol. Patient previously has an ejection fraction of 10 to 15% declined aggressive measures or ICD placement. Patient was rescued with dopamine infusion was given some glucagon and has been stabilized. She actually may have some minor improvement. If the patient improves after 24 hours disc ontinuation of dopamine therapy will be undertaken and then decisions will need to be made about resuming her cardiac medications if her blood pressure and heart rate allow. Overall goals of care from family is just to have some quality time they are however in support of the 24-hour period of this aggressiveness to try to regain some ability to interact with her. Most recently the patient was placed in senior care care because of her decline. Upon my physical exam the patient had dilated pupils which were only sluggishly reactive which is likely response to atropine given intravenously. The patient however otherwise had a bradycardic heart rate some crackles at the bases and neurological was not very responsive. Any exceptions will be noted below PG Care Time/CCT Total # of Minutes Spent Total Time Spent with Patient: Total time spent is greater than 50% in coordination of care (as documented) at patient's floor/unit and/or counseling patient: Coding Level of Care Code 58791 Initial Inpt Care Lvl 3 Diagnoses Biventricular congestive heart failure I50.82 Bradycardia R00.1 Hypothyroid E03.9 Acute kidney injury N17.9 Paroxysmal atrial fibrillation I48.0 Hypotension I95.9 Hypotension type: unspecified hypotension type Encephalopathy G93.40 Hypercalcemia E83.52 Hyponatremia E87.1 (1) Hypotension Hypotension type: unspecified hypotension type Qualified Code(s): I95.9 - Hypotension, unspecified
[2021-09-22] MEDS ORDERED: STAT IV Infusion **Titration per Protocol STA (10:18)
[2021-09-22 10:25] LABS: Troponin I 0.03 ng/ml (0-0.04)
[2021-09-22] MEDS ORDERED: DOPamine / D5W 400 MG/250 ML BAG IV SCH ×2 (10:30→16:08)
[2021-09-22 10:40] LABS: Thyroid Stimulating Hormone 12.836 uIu/ml (0.300-4.500)
[2021-09-22] MEDS ORDERED: GLUCAGON 5 MG in SYRINGE 0 ML IV ONE (10:47)
[2021-09-22 11:07] LABS: Appearance Urine Clear (Clear); Bacteria Urine Automated 1+ (Negative); Bilirubin Urine Negative (Negative); Blood Urine Negative (Negative); Color Urine Yellow; Glucose Urine UA Negative (Negative); Ketones Urine Negative (Negative); Leukocyte Esterase Urine Negative (Negative); Nitrite Urine Negative (Negative); RBC Urine Automated 0-4 /hpf (0-4); Specific Gravity Urine 1.012 (1.000-1.030); Urobilinogen Urine Negative (Negative)
[2021-09-22 11:19] LABS: Protein Urine 1+ (Negative)
[2021-09-22] MEDS ORDERED: GLUCAGON IV ONE (11:39)
[2021-09-22 11:44] LABS: Base Excess VBG 0.6 mEq/L; Oxygen Saturation VBG 69.7 %; pH VBG 7.32 (7.36-7.41)
[2021-09-22] MEDS ORDERED: D5W NORMOSOL-R 1,000 ML IV ONE (12:34)
--- NOTE | 2021-09-22 13:52 | Electrocardiogram Report ---
Test Reason : Blood Pressure : / mmHG Vent. Rate : 074 BPM Atrial Rate : 082 BPM P-R Int : 000 ms QRS Dur : 158 ms QT Int : 448 ms P-R-T Axes : 072 137 -37 degrees QTc Int : 497 ms Sinus rhythm Left bundle branch block Abnormal ECG When compared with ECG of 22-SEP-2021 07:46, HR has increased by 25 bpm Junctional bradycardia no longer present Confirmed by Freddie De Leon ([id number]) on 09/22/2021 1:52:11 PM Referred By: [facility] Confirmed By:Freddie De Leon
--- NOTE | 2021-09-22 16:56 | Cardiology Consultation ---
Date of Consultation September 22, 2021 Assessment & Plan (1) Acute hypotension: (2) Bradycardia: (3) Cardiomyopathy: (4) Acute kidney injury: (5) Chronic systolic CHF (congestive heart failure): 76-year-old woman with end-stage cardiomyopathy presents unresponsive/hypotensive/bradycardic, likely due to vicious cycle of hypoperfusion resulting in metabolic accumulation of negative chronotropes (amiodarone/metoprolol) and hyperkalemia-inducing medications (spironolactone/potassium supplement). She is responding to dopamine infusion with adequate perfusion currently (warm extremities, improving mentation, reasonable hemodynamics). No evidence of current congestion on exam or on pulmonary radiology (chest CT), therefore would not consider this cardiogenic shock. However, her prognosis remains very guarded given her poor systolic function and marked recent decline in functional status (moved from home to nursing facility). Discussed with her son at bedside management goals. The patient had previously expressed desire not to have aggressive measures (ICD, etc.) implemented and was actively pursuing palliative options prior to her acute decompensation. Reasonable to continue pressor support overnight, if she declines despite this and requires additional agents consideration of pursuing comfort care only will be further discussed. Should she be able to be weaned off pressor support her management will continue to be complex and her life span likely still quite limited, hopefully she will obtain some further quality family time while respecting her wishes to avoid aggressive interventions. Cardiology will continue to follow. No specific recommendations beyond holding her outpatient cardiac medications and titrating dopamine to maintain current hemodynamics. History of Present Illness Reason for Consultation: heart failure, bradycardia Requesting Physician: Mahesh Gupta MD Attending Physician: Mahesh Gupta MD History of Present Illness 76-year-old woman with end-stage cardiomyopathy (EF 15-20%), chronic systolic biventricular heart failure, paroxysmal atrial fibrillation (amiodarone/not anticoagulated due to severe epistaxis on apixaban), and peripheral arterial disease (status post femoral-tibial bypass) who was admitted earlier today from nursing facility after she fell and was found on ER evaluation to be unresponsive with profound bradycardia (40 bpm range) and hypotension (systolic blood pressure 70 mmHg range). She was seen as recently as 09/13/2021 in our heart failure clinic, due to her steadily worsening systolic function and declining functional status outpatient palliative care was recommended with consideration of hospice as well. Upon presentation today, after discussion with her son, it was felt reasonable to try a brief course of pressor support to better assess whether her current decom pensation is reversible. She was initiated on dopamine with improvement in her hemodynamics (systolic blood pressure currently 90 mmHg range, heart rate 70 bpm range) and improving mental status (she briefly awoke in the ICU and was able to communicate in a simple fashion). Her initial rhythm was junctional bradycardia, currently her rhythm appears to be sinus with left bundle branch block. Allergies Allergy/AdvReac Type Severity Reaction Status Date / Time Penicillins Allergy Intermediate Hives Verified 09/13/21 15:43 ciprofloxacin Allergy Hives Unverified 09/22/21 10:58 Home Medications Medication Instructions Recorded Confirmed Type multivitamin with minerals 1 tab PO QAM 09/26/20 09/22/21 History amiodarone 200 mg tablet 200 mg PO DAILY 01/05/21 09/22/21 History diclofenac sodium 1 % topical gel 2 g TOPICAL QID PRN #2 g 02/19/21 09/22/21 Rx metoprolol succinate 25 mg 12.5 mg PO BID #30 tab 02/19/21 09/22/21 Rx tablet,extended release 24 hr nystatin 100,000 unit/gram topical 1 applic TOPICAL DAILY PRN 02/19/21 09/22/21 History powder atorvastatin 40 mg tablet 40 mg PO QAM #30 tab 04/22/21 09/22/21 Rx potassium chloride 20 mEq 40 meq PO DAILY #60 tab 06/14/21 09/22/21 Rx tablet,extended release(part/cryst) (Klor-Con M) ferrous sulfate 325 mg (65 mg 325 mg PO Q OTHER DAY #14 tab 08/09/21 09/22/21 Rx iron) tablet acetaminophen 325 mg tablet 650 mg PO Q4 PRN tab 08/13/21 09/22/21 History aspirin 81 mg chewable tablet 81 mg PO DAILY #30 tab 08/13/21 09/22/21 Rx diphenhydramine HCl 25 mg capsule 25 mg PO Q6H PRN cap 08/13/21 09/22/21 History (Benadryl) docusate sodium 100 mg capsule 100 mg PO BID 08/13/21 09/22/21 History (Colace) pantoprazole 40 mg tablet,delayed 40 mg PO DAILY 08/13/21 09/22/21 History release cholecalciferol (vitamin D3) 125 125 mcg PO DAILY 08/23/21 09/22/21 History mcg (5,000 unit) capsule magnesium oxide 400 mg PO BID 08/23/21 09/22/21 History polyethylene glycol 3350 17 17 g PO DAILY PRN 08/27/21 09/22/21 History gram/dose oral powder (Miralax) tramadol 50 mg tablet 50 mg PO Q8 PRN 08/27/21 09/22/21 History Macrobid 100 mg PO BID 08/31/21 09/22/21 History calcium carbonate 500 mg-vitamin 1 tab PO DAILY 08/31/21 09/22/21 History D3 5 mcg (200 unit) tablet (Calcium 500 + D) gabapentin 300 mg capsule 600 mg PO Q12 08/31/21 09/22/21 History ipratropium 20 mcg-albuterol 100 1 puff INHALATION Q6H PRN 08/31/21 09/22/21 History mcg/actuation mist for inhalation (Combivent Respimat) levothyroxine 50 mcg tablet 50 mcg PO DAILY 08/31/21 09/22/21 History pramipexole 0.125 mg tablet 0.125 mg PO HS 08/31/21 09/22/21 History sennosides 8.6 mg-docusate sodium 1 tab-cap PO DAILY PRN 08/31/21 09/22/21 History 50 mg tablet (Senna-S) bumetanide 1 mg tablet 2 mg PO DAILY tab 09/13/21 09/22/21 History magnesium hydroxide 400 mg/5 mL 5 ml PO DAILY 09/13/21 09/22/21 History oral suspension (Milk of Magnesia) spironolactone 50 mg tablet 25 mg PO DAILY 09/22/21 09/22/21 History Patient History Medical History Acute kidney injury Anemia chronic, baseline hgb 10's Arthritis Chronic reflux esophagitis controlled Depression Dyslipidemia Hypercalcemia Hypertension Hypokalemia LBBB (left bundle branch block) dating back to 08/2020 [place] EKG On apixaban therapy Osteopenia Palliative care encounter Peripheral arterial disease Bilateral Common Iliac Artery Stenting(Bilateral), Bilateral Femoral Artery Endarterectomy with Bovine Patch (08/2020) Peripheral neuropathy Pulmonary nodule per records, pt denies RLS (restless legs syndrome) Sleep apnea no device Vitamin D deficiency Weakness Surgical History H/O endarterectomy Bilateral Common Iliac Artery Stenting(Bilateral), Bilateral Femoral Artery Endarterectomy with Bovine Patch: 08/26/20: Grade 2 view, MAC 3.0, ETT 7.0 at [facility] History of appendectomy History of carpal tunnel release of both wrists History of colonoscopy History of tooth extraction Hx of hysterectomy S/P femoral-tibial bypass Family History Mother Hypertension Father Hypertension Sister Hypertension Allergies Brother Hypertension Grandfather (Maternal) Heart disease Grandmother (Maternal) Heart disease Other No family history of adverse response to anesthesia No family history of bleeding disorder Social History Smoking Status: Unknown if ever smoked Tobacco Type: Cigarettes Age Started Using Tobacco: 7; Cigarettes Per Day: 3; Second Hand Exposure: No; Hx Alcohol Use: No Hx Substance Use: No Preferred Language: Serbian Communication Ability: Effective Visual Impairment: No Limitations Hearing Ability: Hard of Hearing 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 Hemodynamics as noted in HPI. Skin: no ecchymoses or generalized lesions. HEENT: unremarkable. Neck: Jugular venous pulse does not appear elevated, no obvious carotid bruits. Lungs: Diminished breath sounds but clear. Cardiac: regular rhythm, 2/6 apical holosystolic murmur, no diastolic murmur. Abdomen: Nondistended. Extremities: no edema, readily palpable but weak radial pulses. Extremities warm. Neurologic: Mental status as above, grossly nonfocal. Results & Data ([facility]) Laboratory Results Sodium 129, chloride 92, potassium 5.9, BUN 61, creatinine 2.25. Diagnostic Findings ECGs as noted in HPI. Echocardiogram July 2021 showed EF 15 to 20% with extensive wall motion abnormalities, moderately dilated right ventricle with severely reduced systolic function, moderate MR/TR with normal estimated right ventricular systolic pressure. Compared with November 2020 study both RV and LV systolic function had significantly declined and wall motion abnormalities were worse. Chest CT today showed diffuse emphysematous and scarring changes but no airspace opacities. PG Care Time/CCT Total # of Minutes Spent Total Time Spent with Patient: Total time spent is greater than 50% in coordination of care (as documented) at patient's floor/unit and/or counseling patient: Coding Level of Care Code 27643 Inpt Consult Level 4 Diagnoses Acute hypotension I95.9 Bradycardia R00.1 Cardiomyopathy I42.9 Acute kidney injury N17.9 Chronic systolic CHF (congestive heart failure) I50.22
[2021-09-22 17:11] LABS: BUN Creatinine Ratio 26.9 (10-20); Calcium 10.9 mg/dl (8.5-10.1); Creatinine Clr Calc Pharmacy 17.7 ml/min; Est GFR (African American) 24.9 ml/min; Est GFR (Non-African American) 21.5 ml/min; Potassium 4.7 mmol/L (3.5-5.1)
[2021-09-22] MEDS: DOPamine / D5W 400 MG/250 ML BAG IV SCH (18:22)
[2021-09-22] MEDS: HEPARIN SOD 5,000 UNIT/0.5 ML VIAL SQ SCH (20:19)
[2021-09-23 06:08] LABS: INR 1.3 (0.9-1.1)
[2021-09-23] MEDS: DOPamine / D5W 400 MG/250 ML BAG IV SCH (07:39)
[2021-09-23] MEDS: HEPARIN SOD 5,000 UNIT/0.5 ML VIAL SQ SCH (07:40)
[2021-09-23] MEDS ORDERED: POLYETHYLENE (MIRALAX) 17 GM PACK PO PRN (08:40)
[2021-09-23] MEDS ORDERED: IPRATROPIUM BROMIDE/ALBUTEROL respimat INH INH PRN (08:40)
[2021-09-23] MEDS ORDERED: DOCUSATE SODIUM/SENNA 50/8.6MG TAB PO PRN (08:40)
[2021-09-23 08:49] LABS: Basophils # (auto) 0.03 K/uL (0-0.2); Basophils % (auto) 0.5 %; Eosinophils # (auto) 0.54 K/uL (0-0.5); Eosinophils % (auto) 8.9 %; Hematocrit (blood only) 33.3 % (37-47); Hemoglobin 10.2 g/dL (12.0-16.0); Immature Granulocytes # (auto) 0.02 K/uL (0.00-0.02); Immature Granulocytes % (auto) 0.3 %; Lymphocytes # (auto) 0.89 K/uL (1.2-3.4); Lymphocytes % (auto) 14.7 %; Mean Corpuscular Hemoglobin 27.1 pg (25-34); Mean Corpuscular Hgb Conc 30.6 g/dL (32-36); Mean Corpuscular Volume 88.3 fL (80-100); Mean Platelet Volume 10.9 fL (7.4-10.4); Monocytes # (auto) 0.35 K/uL (0.11-0.59); Monocytes % (auto) 5.8 %; Neutrophils # (auto) 4.21 K/uL (1.4-6.5); Neutrophils % (auto) 69.8 %; Platelet Count 157 K/uL (130-400); RDW Coefficient of Variation 22.4 % (11.5-14.5); RDW Standard Deviation 72.7 fL (36.4-46.3); Red Blood Count 3.77 M/uL (4.2-5.4); White Blood Count 6.04 K/uL (4.8-10.8)
[2021-09-23] MEDS ORDERED: Ipratropium HFA Inhaler (Combivent Respimat P&T Subs) INH PRN (08:53)
[2021-09-23] MEDS ORDERED: Albuterol HFA 8 GM Inhaler (Combivent Respimat P&T Subs) INH PRN (08:53)
[2021-09-23] MEDS ORDERED: ATORVASTATIN 40 MG TAB PO SCH (09:00)
[2021-09-23] MEDS ORDERED: LEVOTHYROXINE SODIUM 25 MCG in SYRINGE 0 ML IV SCH (09:00)
[2021-09-23 09:08] LABS: Albumin Globulin Ratio 0.9 (0.9-2); Albumin Level 3.6 gm/dl (3.4-5.0); BUN Creatinine Ratio 27.8 (10-20); Calcium 10.4 mg/dl (8.5-10.1); Creatinine Clr Calc Pharmacy 12.7 ml/min; Est GFR (African American) 26.4 ml/min; Est GFR (Non-African American) 22.7 ml/min; Globulin 3.8 gm/dl (2.5-4.0); Magnesium 2.3 mg/dl (1.7-2.4); Phosphorus 5.3 mg/dl (2.5-4.9); Potassium 3.6 mmol/L (3.5-5.1); Total Protein 7.4 gm/dl (6.0-8.3)
[2021-09-23 09:17] LABS: Acanthocytes 1+; Hypochromasia Present
--- NOTE | 2021-09-23 09:44 | XCELERA ---
[id number]
[2021-09-23] MEDS ORDERED: OXYMETAZOLINE 0.05% 30 ML BTL NAE ONE (11:26)
[2021-09-23] MEDS: ASPIRIN 81 MG ECTAB PO SCH (11:28)
--- NOTE | 2021-09-23 11:32 | Hospitalist Progress Note ---
Date of Service September 23, 2021 Assessment & Plan (1) Bradycardia: Plan: Symptomatic bradycardia Hypercarbic with VBG pCO2 at 54, increased from patient's baseline recorded as 41 in November 2020, troponin 0.3, TSH 12.8 DDx includes drug-induced (metoprolol, amiodarone) due to poor renal perfusion/clearance vs cardiogenic shock vs CO/myocardial ischemia. Unlikely to be neurogenic in nature as CT imaging of head and neck is unremarkable for acute mass/hemorrhage/infarction. Unlikely to be due to hypoxia or hypothermia as SpO2 and temperature have been WNL since arrival Hypothyroidism potentially a contributing factor but unlikely primary cause of bradycardia. Accidental or intentional b-андрей overdose is unlikely as patient's medications are administered by faculty at her nursing facility. Patient is not on any other medications that are known to cause bradycardia. Lyme disease is a potential cause of bradycardia but unlikely to be the cause in this patient who has no known or suspected tick bites and no history of Lyme disease. -was txd with glucagon to reduce beta blockade effect -started on dopamine gtt HR now normal sinus with normal rates -Continue dopamine and wean down-ok to accept soft BPs if mentating and perfusing well -gentle IVFs were given -serial troponin neg x 2 -increase SYnthroid dose as below -continue to monitor on tele -hold metoprolol, amiodarone -appreciate Cardiology consult (2) Hypotension: Plan: Symptomatic hypotension likely secondary to bradycardia improved somewhat now with improvemetn of HR and on dopamine gtt -wean off dopamine hold home metoprolol, bumex, aldactone with severe biventricular HF, can expect low BPs (3) Biventricular congestive heart failure: Plan: Severe based on ECHO here, lVEF 15%, severe WMAs, Severe RV dysfunction Hold diuretics due to pt's bradycardia and hypotension. 0.9% NS IVF at 60cc/hr for volume repletion was given and now dcd (4) Encephalopathy: Plan: Likely hypoxic-ischemic secondary to prolonged bradycardia and hypotension, unlikely to be CVA as patient is moving limbs appropriately. CT of head and neck was unremarkable for acute mass/bleed/large vessel stroke. No cervical fracture noted on c-spine CT Patient now awake, alert, oriented x 3, mentating well No need for MRI imaging for further investigation at this time. (5) Acute kidney injury: Plan: Acute on chronic, JIGNA stage 2 based on rise in serum Cr from baseline Cr 1-1.2 to 2.25 on admission Integration Aide today slightly improved down to 2.0 B-secondary to impaired renal perfusion leading to decreased renal function, causing medication buildup/impaired clearance leading to patient's bradycardia. 0.9% NS IVF at 60cc/hr for kidney reperfusion. continue Menezes catheter for now (6) Hypercalcemia: Plan: Ca 11.3, ionized 1.39 on admission 0.9NS IVF at 60cc/hr ordered and Ca++ down to 10.4 today. Vit D level checked and is >120 iPTH appropriately low normal -dc home Vit D and calcium supplementation -follow Ca++ levels (7) Hyponatremia: Plan: Na 129, serum osmolality 303 which is hypertonic but likely due to elevated BUN Secondary to CHF Na+ today is improved to 136 follow BMP (8) Paroxysmal atrial fibrillation: Plan: Hold metoprolol and amiodarone due to bradycardia and hypotension. not on AC due to h/o epistaxis (9) Hypothyroid: Plan: TSH 12.8. Elevated TSH may be a contributing factor to patient's bradycardia but unlikely to be primary cause. increase po LT4 to 50 mcg po daily -dc IV Synthroid (10) Hypervitaminosis D: Plan: as above, Vit D > 120 causing hypercalcemia (11) Anemia: Plan: mild , hgb 10 follow CBC (12) COPD (chronic obstructive pulmonary disease): Plan: no acute issues Combivent prn (13) Dyslipidemia: Plan: hold statin while on Daptomycin (14) Epistaxis: Plan: mild start Afrin spray hold SQ heparin (15) Hyperkalemia: Plan: POA, now resolved with tx with insulin and glucose, albuterol neb follow BMP (16) Osteopenia: Plan: hold home calcium and Vit D for high Vit D and calcium levels (17) Peripheral arterial disease: Plan: continue ASA, but holding home Toprol hold statin while on dapto (18) Peripheral neuropathy: Plan: tramadol prn (19) UTI (urinary tract infection): Plan: abnormal UA Ur cx growing probable Enterococcus start Dapto (20) Severe protein-calorie malnutrition: Plan: Severe protein-calorie malnutrition, BMI 13.7 kg/m*m needs nutrition consult Plan: DVT proph-SCDs, hold heparin for epistaxis Dispo-continued stay on PCU Discussed poor prognosis amd pt and son agreeable to Hospice. Need to discuss with CM about placement with Hospice options Admission and Anticipated Discharge Date Admission Date: September 22, 2021 Subjective Pt reports feeling better today. Is weaning down on dopamine gtt and BP 70-80 systolic but denies lightheadedness. We discussed her poor prognosis overall and options regarding hospice in the future and she reports she definitely does not want to come back to the hospital and she wants to enroll in home hospice. She denies CP or SOB, but is having joint pain and is requesting her tramadol. Her son came to visit later and I saw her again and discussed Hospice with him. He is in agreement with hospice, but says there is not 24/7 care at his home or hers. She would need to go to a facility on hospice. Review of Systems Review of Systems: All systems reviewed & are unremarkable except as noted in HPI & below small amount of bleeding coming from the nose Physical Exam Constitutional: + ill appearing, + thin and + cachectic; no acute distress and no altered mental status Eyes: + anicteric sclerae ENMT: external ear and nose normal, oropharynx normal Neck: trachea midline, no thyromegaly Respiratory: normal respiratory effort Auscultation: + crackles (bibasilar); no rhonchi and no wheezes Cardiovascular: Rate/Rhythm: regular rate and regular rhythm Heart Sounds: + murmur (3/6 systolic murmur at LLSB) Extremities: + edema (trace pitting edema legs bilat) Chest (Breasts): Chest: normal inspection of chest Gastrointestinal (Abdomen): normal bowel sounds, soft, nontender, no hepatosplenomegaly Musculoskeletal: Extremities: extremities normal to inspection; no cyanosis and no clubbing Skin: no rashes, warm and dry Neurologic: moves all extremities and awake; no focal motor deficits Psychiatric: A+Ox3, euthymic affect Lymphatic: no lymphedema Results & Data Results & Data ([facility]) Vital Signs (Past 12 Hours) Vital Signs Temp Pulse Resp BP Pulse Ox 09/23/21 08:40 36.4 C L 09/23/21 08:00 73 20 91/63 L 97 09/23/21 07:28 87 24 09/23/21 04:00 79 18 96/65 L 97 09/23/21 00:00 84 Laboratory Results 09/23/21 09/23/2109/23/22 Range/Units 10:01 10:01 06:40 WBC (4.8-10.8) K/uL RBC (4.2-5.4) M/uL Hgb (12.0-16.0) g/dL Hct (37-47) % MCV (80-100) fL MCH (25-34) pg MCHC (32-36) g/dL RDW Std Deviation (36.4-46.3) fL RDW Coeff of Janie (11.5-14.5) % Plt Count (130-400) K/uL MPV (7.4-10.4) fL Immature Gran % (Auto) % Neut % (Auto) % Lymph % (Auto) % Potter % (Auto) % Eos % (Auto) % Baso % (Auto) % Neut # (Auto) (1.4-6.5) K/uL Lymph # (Auto) (1.2-3.4) K/uL Potter # (Auto) (0.11-0.59) K/uL Eos # (Auto) (0-0.5) K/uL Baso # (Auto) (0-0.2) K/uL Immature Gran # (Auto) (0.00-0.02) K/uL Hypochromasia Acanthocytes (Spur) PT (9.0-12.0) Seconds INR (0.9-1.1) Sodium (136-145) mmol/L Potassium (3.5-5.1) mmol/L Chloride (98-107) mmol/L Carbon Dioxide (21-32) mmol/L Anion Gap (3-11) BUN (6-23) mg/dl Creatinine (0.6-1.2) mg/dl Est Cr Clr Drug Dosing ml/min Est GFR ( Amer) ml/min Est GFR (Non-Af Amer) ml/min BUN/Creatinine Ratio (10-20) Glucose (70-99) mg/dl Calcium (8.5-10.1) mg/dl Ionized Calcium 1.30 Phosphorus (2.5-4.9) mg/dl Magnesium (1.7-2.4) mg/dl Total Bilirubin (0.2-1.0) mg/dl AST (13-39) U/L ALT (7-52) U/L Alkaline Phosphatase (34-104) U/L Total Protein (6.0-8.3) gm/dl Albumin (3.4-5.0) gm/dl Globulin (2.5-4.0) gm/dl Albumin/Globulin Ratio (0.9-2) 25-OH Vitamin D Total > 120.0 H (30-100) ng/ml PTH Intact 23.5 (12.0-88.0) pg/ml Hepatitis C Ab Screen (Neg) 09/23/21 09/23/21 09/23/21 Range/Units 05:42 05:42 05:42 WBC 6.04 (4.8-10.8) K/uL RBC 3.77 L (4.2-5.4) M/uL Hgb 10.2 L (12.0-16.0) g/dL Hct 33.3 L (37-47) % MCV 88.3 (80-100) fL MCH 27.1 (25-34) pg MCHC 30.6 L (32-36) g/dL RDW Std Deviation 72.7 H (36.4-46.3) fL RDW Coeff of Janie 22.4 H (11.5-14.5) % Plt Count 157 (130-400) K/uL MPV 10.9 H (7.4-10.4) fL Immature Gran % (Auto) 0.3 % Neut % (Auto) 69.8 % Lymph % (Auto) 14.7 % Potter % (Auto) 5.8 % Eos % (Auto) 8.9 % Baso % (Auto) 0.5 % Neut # (Auto) 4.21 (1.4-6.5) K/uL Lymph # (Auto) 0.89 L (1.2-3.4) K/uL Potter # (Auto) 0.35 (0.11-0.59) K/uL Eos # (Auto) 0.54 H (0-0.5) K/uL Baso # (Auto) 0.03 (0-0.2) K/uL Immature Gran # (Auto) 0.02 (0.00-0.02) K/uL Hypochromasia Present Acanthocytes (Spur) 1+ PT (9.0-12.0) Seconds INR (0.9-1.1) Sodium 136 (136-145) mmol/L Potassium 3.6 D (3.5-5.1) mmol/L Chloride 98 (98-107) mmol/L Carbon Dioxide 29 (21-32) mmol/L Anion Gap 9 (3-11) BUN 58 H (6-23) mg/dl Creatinine 2.09 H (0.6-1.2) mg/dl Est Cr Clr Drug Dosing 12.7 ml/min Est GFR ( Amer) 26.4 ml/min Est GFR (Non-Af Amer) 22.7 ml/min BUN/Creatinine Ratio 27.8 H (10-20) Glucose 102 H (70-99) mg/dl Calcium 10.4 H (8.5-10.1) mg/dl Ionized Calcium Phosphorus 5.3 H (2.5-4.9) mg/dl Magnesium 2.3 (1.7-2.4) mg/dl Total Bilirubin 1.0 (0.2-1.0) mg/dl AST 33 (13-39) U/L ALT 15 (7-52) U/L Alkaline Phosphatase 52 (34-104) U/L Total Protein 7.4 (6.0-8.3) gm/dl Albumin 3.6 (3.4-5.0) gm/dl Globulin 3.8 (2.5-4.0) gm/dl Albumin/Globulin Ratio 0.9 (0.9-2) 25-OH Vitamin D Total (30-100) ng/ml PTH Intact (12.0-88.0) pg/ml Hepatitis C Ab Screen Neg (Neg) 09/23/21 09/23/21 Range/Units 05:42 05:42 WBC (4.8-10.8) K/uL RBC (4.2-5.4) M/uL Hgb (12.0-16.0) g/dL Hct (37-47) % MCV (80-100) fL MCH (25-34) pg MCHC (32-36) g/dL RDW Std Deviation (36.4-46.3) fL RDW Coeff of Janie (11.5-14.5) % Plt Count (130-400) K/uL MPV (7.4-10.4) fL Immature Gran % (Auto) % Neut % (Auto) % Lymph % (Auto) % Potter % (Auto) % Eos % (Auto) % Baso % (Auto) % Neut # (Auto) (1.4-6.5) K/uL Lymph # (Auto) (1.2-3.4) K/uL Potter # (Auto) (0.11-0.59) K/uL Eos # (Auto) (0-0.5) K/uL Baso # (Auto) (0-0.2) K/uL Immature Gran # (Auto) (0.00-0.02) K/uL Hypochromasia Acanthocytes (Spur) PT 13.0 H (9.0-12.0) Seconds INR 1.3 H (0.9-1.1) Sodium (136-145) mmol/L Potassium (3.5-5.1) mmol/L Chloride (98-107) mmol/L Carbon Dioxide (21-32) mmol/L Anion Gap (3-11) BUN (6-23) mg/dl Creatinine (0.6-1.2) mg/dl Est Cr Clr Drug Dosing ml/min Est GFR ( Amer) ml/min Est GFR (Non-Af Amer) ml/min BUN/Creatinine Ratio (10-20) Glucose (70-99) mg/dl Calcium (8.5-10.1) mg/dl Ionized Calcium Cancelled Phosphorus (2.5-4.9) mg/dl Magnesium (1.7-2.4) mg/dl Total Bilirubin (0.2-1.0) mg/dl AST (13-39) U/L ALT (7-52) U/L Alkaline Phosphatase (34-104) U/L Total Protein (6.0-8.3) gm/dl Albumin (3.4-5.0) gm/dl Globulin (2.5-4.0) gm/dl Albumin/Globulin Ratio (0.9-2) 25-OH Vitamin D Total (30-100) ng/ml PTH Intact (12.0-88.0) pg/ml Hepatitis C Ab Screen (Neg) PG Care Time/CCT Total # of Minutes Spent Total Time Spent with Patient: Total time spent is greater than 50% in coordination of care (as documented) at patient's floor/unit and/or counseling patient: Coding Level of Care Code 26573 Subseq Hosp Care Lvl 3 Diagnoses Bradycardia R00.1 Hypotension I95.9 Hypotension type: unspecified hypotension type Biventricular congestive heart failure I50.82 Encephalopathy G93.40 Acute kidney injury N17.9 Hypercalcemia E83.52 Hyponatremia E87.1 Paroxysmal atrial fibrillation I48.0 Hypothyroid E03.9 Hypervitaminosis D E67.3 Anemia D64.9 Anemia type: unspecified type COPD (chronic obstructive pulmonary disease) J44.9 Dyslipidemia E78.5 Epistaxis R04.0 Hyperkalemia E87.5 Osteopenia M85.80 Peripheral arterial disease I73.9 Peripheral neuropathy G62.9 Peripheral neuropathy type: polyneuropathy, unspecified UTI (urinary tract infection) N39.0 Severe protein-calorie malnutrition E43 (1) Anemia Anemia type: unspecified type Qualified Code(s): D64.9 - Anemia, unspecified (2) Peripheral neuropathy Peripheral neuropathy type: polyneuropathy, unspecified Qualified Code(s): G62.9 - Polyneuropathy, unspecified (3) Hypotension Hypotension type: unspecified hypotension type Qualified Code(s): I95.9 - Hypotension, unspecified
[2021-09-23] MEDS: PANTOprazole 40 MG TAB PO SCH (11:38)
[2021-09-23] MEDS: LEVOTHYROXINE SODIUM 75 MCG TABLET PO SCH (11:38)
[2021-09-23] MEDS: FERROUS SULFATE 325 MG TAB PO SCH (11:38)
[2021-09-23] MEDS: DOCUSATE SODIUM 100 MG CAP PO SCH ×2 (11:38→20:46)
[2021-09-23] MEDS: CEROVITE ADV FORMULA TAB PO SCH (11:38)
[2021-09-23] MEDS: MAGNESIUM OXIDE 400 MG TAB PO SCH ×2 (11:38→20:46)
[2021-09-23] MEDS ORDERED: OXYBUTYNIN CHLORIDE 5 MG TAB PO PRN (11:44)
--- NOTE | 2021-09-23 12:01 | Cardiology Progress Note ---
Date of Service September 23, 2021 Assessment & Plan (1) Acute hypotension: (2) Bradycardia: (3) End stage congestive heart failure: (4) Cardiomyopathy: (5) Acute renal insufficiency: Plan: Patient looks dramatically better from a hemodynamic and clinical standpoint, however she remains on pressor support. Despite her improvement, she has advanced/end-stage cardiomyopathy which likely will remain very difficult to manage. She has previously declined aggressive therapy (ICD, etc.). She appears well perfused despite mild hypotension (systolic blood pressure 90 mmHg), would recommend tapering dopamine throughout the day today and allowing some degree of permissive hypotension as long as she is mentating and not showing evidence of marked underperfusion (cold limbs, decreased urine output, etc.). Will decrease dopamine infusion from 7 mcg/kg/min to 4 mcg/kg/min presently. If unable to taper dopamine without hemodynamic collapse, given her desire not to have aggressive interventions, palliative care dialogue would be appropriate. If able to taper dopamine off, would slowly reintroduce her outpatient medications as tolerated, first amiodarone, then low-dose metoprolol if blood pressure allows. Continue to hold spironolactone and bumetanide, likely a narrow window of ideal volume status, reintroduce diuretics only when clearly volume overloaded and if hemodynamics allow. If she develops recurrent congestion with borderline hemodynamics, could consider dobutamine infusion, but this would be a temporizing measure and would not negate the need for a discussion regarding management goals/palliative care. Although her immediate prognosis is improved, her near and long-term prognosis remain poor. Admission and Anticipated Discharge Date Admission Date: September 22, 2021 Subjective Patient looks dramatically better than yesterday. She was sitting up eating breakfast. She denied any chest pain, dyspnea, palpitations, lightheadedness, or any other complaints. Hemodynamics are reasonable and stable on dopamine infusion @ 7 mcg/kg/min. Systolic blood pressure in the 90 mm range, heart rate in the 80 bpm range. Physical Exam Physical Exam: No distress. Hemodynamics as noted in HPI. Skin: no ecchymoses or generalized lesions. HEENT: unremarkable. Neck: Jugular venous pulse one quarter the way to the angle of jaw at 90 degrees, no obvious carotid bruits. Lungs: Diminished breath sounds, bibasilar crackles. No wheezing. No accessory muscle use. Cardiac: regular rhythm, 2/6 apical holosystolic murmur, no diastolic murmur. Abdomen: Nondistended. Extremities: no edema, readily palpable but weak radial pulses. Extremities warm. Neurologic: Alert and interactive, grossly nonfocal. Results & Data ([facility]) Vital Signs (Past 12 Hours) Vital Signs Temp Pulse Resp BP Pulse Ox 09/23/21 08:40 97.5 F L 09/23/21 08:00 73 20 91/63 L 97 09/23/21 07:28 87 24 09/23/21 04:00 79 18 96/65 L 97 09/23/21 00:00 84 Laboratory Results Normal electrolytes, BUN 58, creatinine 2.09 (down from 2.19). Diagnostic Findings ECG today showed sinus rhythm at 83 bpm with first-degree AV block and left bundle branch block, no change. Echocardiogram showed EF 15 to 20%, extensive wall motion abnormalities, dilated right ventricle with severely reduced systolic function, moderate PI/MR/TR with moderate pulmonary hypertension. Compared with 08/04/2021 study, right brandan tricular systolic pressure is increased, otherwise no significant change. PG Care Time/CCT Total # of Minutes Spent Total Time Spent with Patient: Total time spent is greater than 50% in coordination of care (as documented) at patient's floor/unit and/or counseling patient: Coding Level of Care Code 44622 Subseq Hosp Care Lvl 3 Diagnoses Acute hypotension I95.9 Bradycardia R00.1 End stage congestive heart failure I50.84 Cardiomyopathy I42.9 Acute renal insufficiency N28.9
--- NOTE | 2021-09-23 14:25 | Electrocardiogram Report ---
Test Reason : Blood Pressure : / mmHG Vent. Rate : 083 BPM Atrial Rate : 083 BPM P-R Int : 214 ms QRS Dur : 160 ms QT Int : 458 ms P-R-T Axes : 070 139 -24 degrees QTc Int : 538 ms Sinus rhythm with 1st degree A-V block and intermittent sinus pauses Left bundle branch block Abnormal ECG When compared with ECG of 22-SEP-2021 12:30, No significant change Confirmed by Freddie De Leon ([id number]) on 09/23/2021 2:24:57 PM Referred By: [facility] Confirmed By:Freddie De Leon
[2021-09-23] MEDS: DAPTOmycin 200 MG in SYRINGE 0 ML IV SCH (14:46)
[2021-09-23] MEDS: traMADol HCL 50 MG TABLET PO PRN (14:53)
[2021-09-23] MEDS ORDERED: COUGH DROP (SUGAR FREE) LOZ 24 LOZ/1 BOX BUCCAL ONE (17:40)
[2021-09-23] MEDS ORDERED: NURSING DECISION MEDICATION ONE (17:43)
[2021-09-23] MEDS: COUGH DROP (SUGAR FREE) LOZ 24 LOZ/1 BOX BUCCAL PRN (18:58)
[2021-09-24 05:05] LABS: Mean Corpuscular Hgb Conc 31.1 g/dL (32-36)
[2021-09-24 05:19] LABS: Hematocrit (blood only) 31.5 % (37-47); Hemoglobin 9.8 g/dL (12.0-16.0); Mean Corpuscular Hemoglobin 27.3 pg (25-34); Mean Corpuscular Volume 87.7 fL (80-100); RDW Coefficient of Variation 22.1 % (11.5-14.5); RDW Standard Deviation 71.5 fL (36.4-46.3); Red Blood Count 3.59 M/uL (4.2-5.4); White Blood Count 5.38 K/uL (4.8-10.8)
[2021-09-24] MEDS: LEVOTHYROXINE SODIUM 75 MCG TABLET PO SCH (05:30)
[2021-09-24 05:36] LABS: Albumin Level 3.5 gm/dl (3.4-5.0); BUN Creatinine Ratio 27.9 (10-20); Calcium 10.2 mg/dl (8.5-10.1); Creatinine Clr Calc Pharmacy 14.8 ml/min; Est GFR (African American) 31.8 ml/min; Est GFR (Non-African American) 27.4 ml/min; Globulin 3.6 gm/dl (2.5-4.0); Magnesium 2.1 mg/dl (1.7-2.4); Phosphorus 3.7 mg/dl (2.5-4.9); Potassium 3.4 mmol/L (3.5-5.1); Total Protein 7.1 gm/dl (6.0-8.3)
[2021-09-24 05:48] LABS: Mean Platelet Volume 10.9 fL (7.4-10.4); Platelet Count 117 K/uL (130-400)
[2021-09-24 05:49] LABS: Acanthocytes 1+; Anisocytosis Present; Basophils # (auto) 0.04 K/uL (0-0.2); Basophils % (auto) 0.7 %; Eosinophils # (auto) 0.86 K/uL (0-0.5); Immature Granulocytes # (auto) 0.01 K/uL (0.00-0.02); Immature Granulocytes % (auto) 0.2 %; Lymphocytes # (auto) 1.18 K/uL (1.2-3.4); Lymphocytes % (auto) 21.9 %; Monocytes # (auto) 0.42 K/uL (0.11-0.59); Monocytes % (auto) 7.8 %; Neutrophils # (auto) 2.87 K/uL (1.4-6.5); Neutrophils % (auto) 53.4 %; Platelet Estimate Decreased (Normal)
[2021-09-24] MEDS ORDERED: POTASSIUM CHLORIDE CRTAB 20 MEQ TABCR PO STA (07:53)
[2021-09-24] MEDS: CEROVITE ADV FORMULA TAB PO SCH (08:15)
[2021-09-24] MEDS: MAGNESIUM OXIDE 400 MG TAB PO SCH ×2 (08:15→21:20)
[2021-09-24] MEDS: DOCUSATE SODIUM 100 MG CAP PO SCH ×2 (08:16→21:20)
[2021-09-24] MEDS: PANTOprazole 40 MG TAB PO SCH (08:16)
--- NOTE | 2021-09-24 14:04 | Cardiology Progress Note ---
Date of Service September 24, 2021 Assessment & Plan (1) Acute hypotension: (2) Bradycardia: (3) End stage congestive heart failure: (4) Cardiomyopathy: (5) Acute renal insufficiency: Plan: Patient looks dramatically better from a hemodynamic and clinical standpoint. She has been weaned off of pressor support. She is tolerating room air. Heart rate is WNL. Despite her improvement, she has advanced/end-stage cardiomyopathy which likely will remain very difficult to manage. She has previously declined aggressive therapy (ICD, etc.). She appears well perfused despite mild hypotension (systolic blood pressure 90s/100s mmHg). Allow some degree of permissive hypotension as long as she is mentating and not showing evidence of marked underperfusion (cold limbs, decreased urine output, etc.). May be able to slowly reintroduce her outpatient medications as tolerated, first amiodarone, then low-dose metoprolol if blood pressure allows. If patient is being discharged with hospice it may be reasonable to remain off of these medications as long as she is clinically and hemodynamically stable. Continue to hold spironolactone and bumetanide, likely a narrow window of ideal volume status, reintroduce diuretics only when clearly volume overloaded and if hemodynamics allow. Current goal- neutral fluid balance. Although her immediate prognosis is improved, her near and long-term prognosis remain poor. Patient does not want to return to the hospital in the event of another decline. Hospice has been discussed and her and her son are agreeable. Her low EF certainly qualifies her for such. CM to look into potential placement options for her. If she is discharged with hospice services we will defer her heart failure management to their team and she will not require outpatient follow up with the heart failure program. Admission and Anticipated Discharge Date Admission Date: September 22, 2021 Subjective Patient was evaluated in ICU today. She is sitting in bed resting comfortably. She is alert and answering questions appropriately. She reports she's feeling well. She has been weaned off of her pressors and O2. BP continues to improve through the day. Patient has decided to transition to hospice on discharge but is still awaiting acceptance to a facility. She denies chest pain, cough, edema, shortness of breath. Physical Exam Physical Exam: No distress. A&O x 3 Skin: no ecchymoses or generalized lesions. HEENT: unremarkable. Neck: Jugular venous pulse one quarter the way to the angle of jaw at 90 degrees, no obvious carotid bruits. Lungs: Diminished breath sounds, bibasilar crackles. No wheezing. No accessory muscle use. Cardiac: regular rhythm, 2/6 apical holosystolic murmur, no diastolic murmur. Abdomen: Nondistended. Extremities: no edema, readily palpable but weak radial pulses. Extremities warm. Neurologic: Alert and interactive, grossly nonfocal. Results & Data ([facility]) Vital Signs (Past 12 Hours) Vital Signs Temp Pulse Pulse Resp BP BP Pulse Ox 09/24/21 13:30 74 18 102/74 09/24/21 13:00 73 17 09/24/21 12:31 68 14 90/62 L 09/24/21 12:01 76 23 81/44 L 09/24/21 12:00 81 19 09/24/21 11:39 78 16 88/57 L 09/24/21 11:38 73 17 67/49 L 09/24/21 11:31 76 12 78/58 L 09/24/21 11:15 70 21 86/56 L 09/24/21 11:04 98.1 F 71 19 79/55 L 89 L 09/24/21 11:00 70 17 79/55 L 09/24/21 10:45 71 18 86/55 L 09/24/21 10:30 67 13 78/56 L 09/24/21 10:15 65 13 80/53 L 09/24/21 10:00 66 18 82/51 L 09/24/21 09:46 68 18 71/51 L 09/24/21 09:31 64 17 65/51 L 94 09/24/21 09:21 62 14 71/48 L 98 09/24/21 09:00 62 17 71/43 L 100 09/24/21 08:31 72 19 83/37 L 98 09/24/21 08:15 71 13 99/71 L 97 09/24/21 08:00 64 18 78/49 L 100 09/24/21 07:57 64 13 71/35 L 100 09/24/21 07:55 64 14 69/44 L 100 09/24/21 07:46 66 15 79/50 L 96 09/24/21 07:45 64 25 H 81/50 L 96 09/24/21 07:30 67 18 94/59 L 100 09/24/21 07:00 64 21 97/63 L 94 09/24/21 05:01 61 11 L 97/63 L 97 09/24/21 05:00 62 10 L 09/24/21 04:33 64 18 95/57 L 09/24/21 04:00 58 L 20 73/48 L 09/24/21 03:30 63 17 79/56 L 91 09/24/21 03:00 65 14 93 09/24/21 02:30 83 23 95/59 L 09/24/21 02:00 68 16 92/64 L PG Care Time/CCT Total # of Minutes Spent Total Time Spent with Patient: Total time spent is greater than 50% in coordination of care (as documented) at patient's floor/unit and/or counseling patient: Coding Level of Care Code 52598 Subseq Hosp Care Lvl 3 Diagnoses Acute hypotension I95.9 Bradycardia R00.1 End stage congestive heart failure I50.84 Cardiomyopathy I42.9 Acute renal insufficiency N28.9
--- NOTE | 2021-09-24 18:03 | Hospitalist Progress Note ---
Date of Service September 24, 2021 Assessment & Plan (1) Bradycardia: Plan: Symptomatic bradycardia Hypercarbic with VBG pCO2 at 54, increased from patient's baseline recorded as 41 in November 2020, troponin 0.3, TSH 12.8 Bradycardia drug-induced (metoprolol, amiodarone) due to poor renal perfusion/clearance and acute kidney injury, hyperkalemia Unlikely to be neurogenic in nature as CT imaging of head and neck is unremarkable for acute mass/hemorrhage/infarction. Unlikely to be due to hypoxia or hypothermia as SpO2 and temperature have been WNL since arrival Hypothyroidism potentially a contributing factor but unlikely primary cause of bradycardia. Accidental or intentional b-андрей overdose is unlikely as patient's medications are administered by faculty at her nursing facility. Patient is not on any other medications that are known to cause bradycardia. Lyme disease is a potential cause of bradycardia but unlikely to be the cause in this patient who has no known or suspected tick bites and no history of Lyme disease. -was txd with glucagon to reduce beta blockade effect on admission -given small amount of gentle IVFs -started on dopamine gtt and heart rate and BPs have improved -held metoprolol, amlodipine, diuretics -ECHO with LVEF 15% and severe biventricular HF -serial trop negative -renal function improving Mentation back to baseline Weaned off dopamine on 09/24 in AM, BPs now in 80s-100 systolic, HRs in the 70- 80s -increased Synthroid dose as below -continue to monitor on tele -continue to hold metoprolol, amiodarone -appreciate Cardiology consult-does recommend trying to add back amiodarone first, followed by metoprolol and then possibly diuretics, however hesitant to do any of this for now (2) Hypotension: Plan: Symptomatic hypotension likely secondary to bradycardia improved somewhat now with normalization of HR and on dopamine gtt Is now weaned off of dopamine Continue to hold home metoprolol, amiodarone, bumex, aldactone with severe biventricular HF, can expect low BPs (3) Biventricular congestive heart failure: Plan: Severe based on ECHO here, lVEF 15%, severe WMAs, Severe RV dysfunction Hold diuretics and other meds as above due to pt's bradycardia and hypotension. 0.9% NS IVF at 60cc/hr for volume repletion was given and now dcd Patient interested in hospice care after discharge as she does not want to keep coming back to the hospital-looking for placement at skilled facility but will need POLST form filled out prior to discharge documenting her wishes to not r eturn to the hospital and pursue comfort measures if worsens again (4) Encephalopathy: Plan: Likely hypoxic-ischemic secondary to prolonged bradycardia and hypotension, unlikely to be CVA as patient is moving limbs appropriately. CT of head and neck was unremarkable for acute mass/bleed/large vessel stroke. Patient now awake, alert, oriented x 3, mentating well No need for MRI imaging for further investigation at this time. (5) Acute kidney injury: Plan: Acute on chronic, JIGNA stage 2 based on rise in serum Cr from baseline Cr 1-1.2 to 2.25 on admission Staff [employer] improved since admission down to 1.79 today, making urine -secondary to impaired renal perfusion leading to decreased renal function, causing medication buildup/impaired clearance leading to patient's bradycardia. 0.9% NS IVF at 60cc/hr for kidney reperfusion was given on admission continue Menezes catheter for now (6) Hypercalcemia: Plan: Ca 11.3, ionized 1.39 on admission 0.9NS IVF at 60cc/hr ordered and Ca++ down to 10.4 now Vit D level checked and is >120 iPTH appropriately low normal -Permanently discontinue home Vit D and calcium supplementation -follow Ca++ levels (7) Hyponatremia: Plan: Na 129, serum osmolality 303 which is hypertonic but likely due to elevated BUN Secondary to CHF Na+ today is improved to 131 follow BMP (8) Paroxysmal atrial fibrillation: Plan: In sinus rhythm here Hold metoprolol and amiodarone due to bradycardia and hypotension. not on AC due to h/o epistaxis (9) Hypothyroid: Plan: TSH 12.8. Elevated TSH may be a contributing factor to patient's bradycardia but unlikely to be primary cause. increased po LT4 to 50 mcg po daily (10) Hypervitaminosis D: Plan: as above, Vit D > 120 causing hypercalcemia Discontinue all vitamin D-containing products (11) Anemia: Plan: mild , hgb 9.8-10, normocytic, likely anemia of chronic disease follow CBC (12) COPD (chronic obstructive pulmonary disease): Plan: no acute issues Combivent prn (13) Dyslipidemia: Plan: hold statin while on Daptomycin (14) Epistaxis: Plan: mild, now resolved Use Afrin spray as needed Okay to restart SQ heparin and aspirin 81 mg daily from home (15) Hyperkalemia: Plan: POA, now resolved with tx with insulin and glucose, albuterol neb follow BMP (16) Osteopenia: Plan: Discontinue home calcium and Vit D for high Vit D and calcium levels (17) Peripheral arterial disease: Plan: continue ASA hold statin while on dapto (18) Peripheral neuropathy: Plan: tramadol prn (19) UTI (urinary tract infection): Plan: abnormal UA Ur cx growing Enterococcus faecalis Continue Dapto as she is allergic to penicillin and fluoroquinolones-complete 3 days of treatment, last dose will be on 09/25 (20) Severe protein-calorie malnutrition: Plan: Severe protein-calorie malnutrition, BMI 13.7 kg/m*m Plan: DVT proph-SCDs, SQ heparin Dispo-continued stay on PCU Discussed poor prognosis and pt and son agreeable to Hospice, however son cannot provide 24/7 care at home. She will need placement at half-way facility with POLST filled out to not return to the hospital as per patient's wishes and eventual transition to hospice. Referrals made to half-way facilities today PT/OT evaluations ordered Admission and Anticipated Discharge Date Admission Date: September 22, 2021 Subjective Pt weaned off dopamine today, BPs staying in 80-90s systolic. She denies CP, SOB, or lightheadedness. SHe is eating some but reports low appetite. She feels like she might need to move her bowels but says she cannot go on a bed chi and wants to try a bedside commode. Tele with sinus rhythm, 1st degree AV block Review of Systems Review of Systems: All systems reviewed & are unremarkable except as noted in HPI & below Physical Exam Constitutional: WD/WN, vitals as above + ill appearing, + thin and + cachectic; no acute distress and no altered mental status Eyes: + anicteric sclerae Neck: trachea midline, no thyromegaly Respiratory: normal respiratory effort Auscultation: + crackles (bibasilar); no rhonchi and no wheezes Cardiovascular: Rate/Rhythm: regular rate and regular rhythm Heart Sounds: + murmur (3/6 systolic murmur at LLSB) Extremities: no edema Chest (Breasts): Chest: normal inspection of chest Gastrointestinal (Abdomen): normal bowel sounds, soft, nontender, no hepatosplenomegaly Musculoskeletal: Extremities: extremities normal to inspection; no cyanosis and no clubbing Skin: no rashes, warm and dry Neurologic: moves all extremities and awake; no focal motor deficits Psychiatric: Orientation: alert, oriented to person, oriented to place and cooperative Genitourinary: Menezes in place draining clear yellow urine Lymphatic: no lymphedema Results & Data Results & Data ([facility]) Vital Signs (Past 12 Hours) Vital Signs Temp Pulse Pulse Resp BP BP Pulse Ox 09/24/21 15:55 36.7 C 82 19 102/66 97 09/24/21 13:30 74 18 102/74 09/24/21 13:00 73 17 09/24/21 12:31 68 14 90/62 L 09/24/21 12:01 76 23 81/44 L 09/24/21 12:00 81 19 09/24/21 11:39 78 16 88/57 L 09/24/21 11:38 73 17 67/49 L 09/24/21 11:31 76 12 78/58 L 09/24/21 11:15 70 21 86/56 L 09/24/21 11:04 36.7 C 71 19 79/55 L 89 L 09/24/21 11:00 70 17 79/55 L 09/24/21 10:45 71 18 86/55 L 09/24/21 10:30 67 13 78/56 L 09/24/21 10:15 65 13 80/53 L 09/24/21 10:00 66 18 82/51 L 09/24/21 09:46 68 18 71/51 L 09/24/21 09:31 64 17 65/51 L 94 09/24/21 09:21 62 14 71/48 L 98 09/24/21 09:00 62 17 71/43 L 100 09/24/21 08:31 72 19 83/37 L 98 09/24/21 08:15 71 13 99/71 L 97 09/24/21 08:00 64 18 78/49 L 100 09/24/21 07:57 64 13 71/35 L 100 09/24/21 07:55 64 14 69/44 L 100 09/24/21 07:46 66 15 79/50 L 96 09/24/21 07:45 64 25 H 81/50 L 96 09/24/21 07:30 67 18 94/59 L 100 09/24/21 07:00 64 21 97/63 L 94 Laboratory Results 09/24/21 09/24/21 Range/Units 04:33 04:33 WBC 5.38 (4.8-10.8) K/uL RBC 3.59 L (4.2-5.4) M/uL Hgb 9.8 L (12.0-16.0) g/dL Hct 31.5 L (37-47) % MCV 87.7 (80-100) fL MCH 27.3 (25-34) pg MCHC 31.1 L (32-36) g/dL RDW Std Deviation 71.5 H (36.4-46.3) fL RDW Coeff of Janie 22.1 H (11.5-14.5) % Plt Count 117 L (130-400) K/uL MPV 10.9 H (7.4-10.4) fL Immature Gran % (Auto) 0.2 % Neut % (Auto) 53.4 % Lymph % (Auto) 21.9 % Cass % (Auto) 7.8 % Eos % (Auto) 16.0 % Baso % (Auto) 0.7 % Neut # (Auto) 2.87 (1.4-6.5) K/uL Lymph # (Auto) 1.18 L (1.2-3.4) K/uL Cass # (Auto) 0.42 (0.11-0.59) K/uL Eos # (Auto) 0.86 H (0-0.5) K/uL Baso # (Auto) 0.04 (0-0.2) K/uL Immature Gran # (Auto) 0.01 (0.00-0.02) K/uL Platelet Estimate Decreased L (Normal) Anisocytosis Present Acanthocytes (Spur) 1+ Sodium 131 L (136-145) mmol/L Potassium 3.4 L (3.5-5.1) mmol/L Chloride 95 L (98-107) mmol/L Carbon Dioxide 28 (21-32) mmol/L Anion Gap 8 (3-11) BUN 50 H (6-23) mg/dl Creatinine 1.79 H D (0.6-1.2) mg/dl Est Cr Clr Drug Dosing 14.8 ml/min Est GFR ( Amer) 31.8 ml/min Est GFR (Non-Af Amer) 27.4 ml/min BUN/Creatinine Ratio 27.9 H (10-20) Glucose 84 (70-99) mg/dl Calcium 10.2 H (8.5-10.1) mg/dl Phosphorus 3.7 D (2.5-4.9) mg/dl Magnesium 2.1 (1.7-2.4) mg/dl Total Bilirubin 1.0 (0.2-1.0) mg/dl AST 29 (13-39) U/L ALT 14 (7-52) U/L Alkaline Phosphatase 52 (34-104) U/L Total Protein 7.1 (6.0-8.3) gm/dl Albumin 3.5 (3.4-5.0) gm/dl Globulin 3.6 (2.5-4.0) gm/dl Albumin/Globulin Ratio 1.0 (0.9-2) PG Care Time/CCT Total # of Minutes Spent Total Time Spent with Patient: Total time spent is greater than 50% in coordination of care (as documented) at patient's floor/unit and/or counseling patient: Coding Level of Care Code 75532 Subseq Hosp Care Lvl 3 Diagnoses Bradycardia R00.1 Hypotension I95.9 Hypotension type: unspecified hypotension type Biventricular congestive heart failure I50.82 Encephalopathy G93.40 Acute kidney injury N17.9 Hypercalcemia E83.52 Hyponatremia E87.1 Paroxysmal atrial fibrillation I48.0 Hypothyroid E03.9 Hypervitaminosis D E67.3 Anemia D64.9 Anemia type: unspecified type COPD (chronic obstructive pulmonary disease) J44.9 Dyslipidemia E78.5 Epistaxis R04.0 Hyperkalemia E87.5 Osteopenia M85.80 Peripheral arterial disease I73.9 Peripheral neuropathy G62.9 Peripheral neuropathy type: polyneuropathy, unspecified UTI (urinary tract infection) N39.0 Severe protein-calorie malnutrition E43 (1) Hypotension Hypotension type: unspecified hypotension type Qualified Code(s): I95.9 - Hypotension, unspecified (2) Anemia Anemia type: unspecified type Qualified Code(s): D64.9 - Anemia, unspecified (3) Peripheral neuropathy Peripheral neuropathy type: polyneuropathy, unspecified Qualified Code(s): G62.9 - Polyneuropathy, unspecified
[2021-09-24] MEDS: HEPARIN SOD 5,000 UNIT/0.5 ML VIAL SQ SCH (21:20)
[2021-09-25] MEDS: LEVOTHYROXINE SODIUM 75 MCG TABLET PO SCH (05:27)
[2021-09-25 05:47] LABS: Calcium 10.6 mg/dl (8.5-10.1); Creatinine Clr Calc Pharmacy 22.6 ml/min; Est GFR (African American) 35.3 ml/min; Est GFR (Non-African American) 30.5 ml/min; Magnesium 1.9 mg/dl (1.7-2.4); Potassium 4.1 mmol/L (3.5-5.1)
[2021-09-25] MEDS: ASPIRIN 81 MG ECTAB PO SCH (08:42)
[2021-09-25] MEDS: MAGNESIUM OXIDE 400 MG TAB PO SCH ×2 (08:42→20:20)
[2021-09-25] MEDS: FERROUS SULFATE 325 MG TAB PO SCH (08:42)
[2021-09-25] MEDS: DOCUSATE SODIUM 100 MG CAP PO SCH ×2 (08:42→20:20)
[2021-09-25] MEDS: PANTOprazole 40 MG TAB PO SCH (08:42)
[2021-09-25] MEDS: CEROVITE ADV FORMULA TAB PO SCH (08:42)
[2021-09-25] MEDS: HEPARIN SOD 5,000 UNIT/0.5 ML VIAL SQ SCH ×2 (08:42→20:20)
[2021-09-25] MEDS: traMADol HCL 50 MG TABLET PO PRN (08:46)
[2021-09-25] MEDS: DAPTOmycin 200 MG in SYRINGE 0 ML IV SCH (11:22)
--- NOTE | 2021-09-25 15:31 | Hospitalist Progress Note ---
Date of Service September 25, 2021 Assessment & Plan (1) Bradycardia: Plan: Symptomatic bradycardia from AV mark agents. Weaned off dopamine on 09/24 in AM. - Holding amiodarone and beta-андрей - Presently HR back to 80 - 90 bpm. - Increased Synthroid dose as below - Continue to monitor on tele - Continue to hold metoprolol, amiodarone - Appreciate Cardiology consult - does recommend trying to add back amiodarone first, followed by metoprolol and then possibly diuretics. Will defer for now as HR remains steady in the 80 - 90 range. (2) Hypotension: Plan: Symptomatic hypotension likely secondary to bradycardia. Was on dopamine, but weaned off now. - Continue to hold home metoprolol, amiodarone, bumex, aldactone With severe biventricular HF, can expect low BPs. (3) Biventricular congestive heart failure: Plan: Severe based on ECHO here, lVEF 15%, severe WMAs, Severe RV dysfunction. Hold diuretics and other meds as above due to pt's bradycardia and hypotension. Patient interested in hospice care after discharge as she does not want to keep coming back to the hospital-looking for placement at skilled facility but will need POLST form filled out prior to discharge documenting her wishes to not return to the hospital and pursue comfort measures if worsens again. (4) Encephalopathy: Plan: Likely hypoxic-ischemic secondary to prolonged bradycardia and hypotension. CT of head and neck was unremarkable for acute mass/bleed/large vessel stroke. - Patient now awake, alert, oriented x 3, mentating well (5) UTI (urinary tract infection): Plan: Ur cx growing Enterococcus faecalis. - Continue Dapto as she is allergic to penicillin and fluoroquinolones-complete 3 days of treatment, last dose will be on 09/25 (6) Acute kidney injury: Plan: Acute on chronic, JIGNA stage 2 based on rise in serum Cr from baseline Cr 1-1.2 to 2.25 on admission. - Secondary to impaired renal perfusion leading to decreased renal function, causing medication buildup/impaired clearance leading to patient's bradycardia. - Down to 1.64 on 09/25. (7) Hypercalcemia: Plan: Ca 11.3, ionized 1.39 on admission. Vit D level checked and was >120. iPTH appropriately low normal. - Permanently discontinue home Vit D and calcium supplementation (8) Hyponatremia: Plan: Na 129, serum osmolality 303 which is hypertonic but likely due to elevated BUN. Secondary to CHF. - Na+ today is stable at 131. - Follow (9) Paroxysmal atrial fibrillation: Plan: In sinus rhythm here. - Hold metoprolol and amiodarone due to bradycardia and hypotension. - Not on AC due to h/o epistaxis (10) Hypothyroid: Plan: TSH 12.8. Elevated TSH may be a contributing factor to patient's bradycardia but unlikely to be primary cause. - Increased levothyroxine to 75 mcg (11) Hypervitaminosis D: Plan: As above, Vit D > 120 causing hypercalcemia. (12) Anemia: Plan: Mild, hgb 9.8-10, normocytic, likely anemia of chronic disease. - Follow CBC (13) COPD (chronic obstructive pulmonary disease): Plan: No acute issues. Reports no shortness of breath to me today. - Combivent PRN (14) Dyslipidemia: Plan: hold statin while on Daptomycin (15) Epistaxis: Plan: Mild, now resolved. - Afrin spray as needed (16) Osteopenia: Plan: Discontinue home calcium and Vit D for high Vit D and calcium levels (17) Peripheral arterial disease: Plan: continue ASA hold statin while on dapto (18) Peripheral neuropathy: Plan: tramadol prn (19) Severe protein-calorie malnutrition: Plan: Severe protein-calorie malnutrition, BMI 13.7 kg/m*m Admission and Anticipated Discharge Date Admission Date: September 22, 2021 Subjective Doing well today. Reports that she is tired, but no overt complaints. Reports no fevers/chills, chest pain, shortness of breath, abdominal pain, nausea, or vomiting. Physical Exam Constitutional: WD/WN, vitals as above Eyes: EOM intact bilaterally; no conjunctival abnormality ENMT: external ear and nose normal, oropharynx normal Neck: trachea midline, no thyromegaly normal visual inspection Respiratory: normal respiratory effort, lungs clear to auscultation no respiratory distress Cardiovascular: Rate/Rhythm: regular rate and + irregularly irregular Gastrointestinal (Abdomen): Inspection/Auscultation: abdomen normal to inspection; abdomen not distended Musculoskeletal: no cyanosis or clubbing, extremities motor strength 5/5 Skin: no rashes, warm and dry Neurologic: moves all extremities and awake Psychiatric: Orientation: alert, oriented to person and cooperative Results & Data Results & Data ([facility]) Vital Signs (Past 12 Hours) Vital Signs Temp Pulse Pulse Resp BP Pulse Ox 09/25/21 13:00 37.2 C 89 22 95/67 L 93 09/25/21 08:00 37.1 C 89 88 18 101/74 94 09/25/21 04:38 37.4 C 85 19 111/64 90 PG Care Time/CCT Total # of Minutes Spent Total Time Spent with Patient: Total time spent is greater than 50% in coordination of care (as documented) at patient's floor/unit and/or counseling patient: Coding Level of Care Code 95802 Subseq Hosp Care Lvl 3 Diagnoses Bradycardia R00.1 Hypotension I95.9 Hypotension type: unspecified hypotension type Biventricular congestive heart failure I50.82 Encephalopathy G93.40 Acute kidney injury N17.9 Hypercalcemia E83.52 Hyponatremia E87.1 Paroxysmal atrial fibrillation I48.0 Hypothyroid E03.9 Hypervitaminosis D E67.3 Anemia D64.9 Anemia type: unspecified type COPD (chronic obstructive pulmonary disease) J44.9 Dyslipidemia E78.5 Epistaxis R04.0 Osteopenia M85.80 Peripheral arterial disease I73.9 Peripheral neuropathy G62.9 Peripheral neuropathy type: polyneuropathy, unspecified UTI (urinary tract infection) N39.0 Severe protein-calorie malnutrition E43 (1) Hypotension Hypotension type: unspecified hypotension type Qualified Code(s): I95.9 - Hypotension, unspecified (2) Anemia Anemia type: unspecified type Qualified Code(s): D64.9 - Anemia, unspecified (3) Peripheral neuropathy Peripheral neuropathy type: polyneuropathy, unspecified Qualified Code(s): G62.9 - Polyneuropathy, unspecified
[2021-09-26] MEDS: LEVOTHYROXINE SODIUM 75 MCG TABLET PO SCH (06:09)
[2021-09-26] MEDS: PANTOprazole 40 MG TAB PO SCH (07:18)
[2021-09-26] MEDS: CEROVITE ADV FORMULA TAB PO SCH (07:18)
[2021-09-26] MEDS: ASPIRIN 81 MG ECTAB PO SCH (07:19)
[2021-09-26] MEDS: MAGNESIUM OXIDE 400 MG TAB PO SCH ×2 (07:19→20:36)
[2021-09-26] MEDS: HEPARIN SOD 5,000 UNIT/0.5 ML VIAL SQ SCH ×2 (07:19→20:38)
[2021-09-26] MEDS: DOCUSATE SODIUM 100 MG CAP PO SCH ×2 (07:19→20:36)
--- NOTE | 2021-09-26 11:26 | Hospitalist Progress Note ---
Date of Service September 26, 2021 Assessment & Plan (1) Bradycardia: Plan: Symptomatic bradycardia from AV mark agents. Was on dopamine for HR and BP. Weaned off on 09/24 in AM. - Holding amiodarone and beta-андрей - Presently HR back to 70 - 90 bpm. - Increased Synthroid dose as below - Continue to monitor on tele - Continue to hold metoprolol, amiodarone - Appreciate Cardiology consult - does recommend trying to add back amiodarone first, followed by metoprolol and then possibly diuretics. Will defer for now as HR remains steady in the 70 - 90 range. (2) Hypotension: Plan: Resolved. Symptomatic hypotension secondary to bradycardia. Was on dopamine, but weaned off now. With severe biventricular HF, can expect low BPs. - Continue to hold home metoprolol, amiodarone, Bumex, Aldactone (3) Biventricular congestive heart failure: Plan: Severe based on ECHO here, LVEF 15%, severe WMAs, Severe RV dysfunction. Hold diuretics and other meds as above due to pt's bradycardia and hypotension. Patient interested in hospice care after discharge as she does not want to keep coming back to the hospital-looking for placement at skilled facility but will need POLST form filled out prior to discharge documenting her wishes to not return to the hospital and pursue comfort measures if worsens again. (4) Encephalopathy: Plan: Likely hypoxic-ischemic secondary to prolonged bradycardia and hypotension. CT of head and neck was unremarkable for acute mass/bleed/large vessel stroke. - Patient now awake, alert, oriented x 3, mentating well (5) UTI (urinary tract infection): Plan: Ur cx growing Enterococcus faecalis. - Finished Dapto while in the hospital. (6) Acute kidney injury: Plan: Acute on chronic, JIGNA stage 2 based on rise in serum Cr from baseline Cr 1-1.2 to 2.25 on admission. - Secondary to impaired renal perfusion leading to decreased renal function, causing medication buildup/impaired clearance leading to patient's bradycardia. - Down to 1.64 on 09/25. (7) Hypercalcemia: Plan: Ca 11.3, ionized 1.39 on admission. Vit D level checked and was >120. iPTH appropriately low normal. - Permanently discontinue home Vit D and calcium supplementation (8) Hyponatremia: Plan: Na 129, serum osmolality 303 which is hypertonic but likely due to elevated BUN. Secondary to CHF. - Na+ today is stable at 131. - Follow (9) Paroxysmal atrial fibrillation: Plan: In sinus rhythm here. - Hold metoprolol and amiodarone due to bradycardia and hypotension. - Not on AC due to h/o epistaxis (10) Hypothyroid: Plan: TSH 12.8. Elevated TSH may be a contributing factor to patient's bradycardia but unlikely to be primary cause. - Increased levothyroxine to 75 mcg (from prior 50 mcg) (11) Hypervitaminosis D: Plan: As above, Vit D > 120 causing hypercalcemia. (12) Anemia: Plan: Mild, hgb 9.8-10, normocytic, likely anemia of chronic disease. - Follow CBC (13) COPD (chronic obstructive pulmonary disease): Plan: No acute issues. Reports no shortness of breath to me today. - Combivent PRN (14) Dyslipidemia: Plan: - Held statin while on Daptomycin - Resumed (15) Epistaxis: Plan: Mild, now resolved. - Afrin spray as needed (16) Osteopenia: Plan: Discontinue home calcium and Vit D for high Vit D and calcium levels (17) Peripheral arterial disease: Plan: - Continue ASA & statin (18) Peripheral neuropathy: Plan: tramadol prn (19) Severe protein-calorie malnutrition: Plan: Severe protein-calorie malnutrition, BMI 13.7 kg/m*m Admission and Anticipated Discharge Date Admission Date: September 22, 2021 Subjective No major change from yesterday. Slept ok. Reports no fevers/chills, chest pain, shortness of breath, abdominal pain, nausea, or vomiting. Physical Exam Constitutional: WD/WN, vitals as above Eyes: EOM intact bilaterally; no conjunctival abnormality ENMT: external ear and nose normal, oropharynx normal Neck: trachea midline, no thyromegaly normal visual inspection Respiratory: normal respiratory effort, lungs clear to auscultation no respiratory distress Cardiovascular: Rate/Rhythm: regular rate and regular rhythm Gastrointestinal (Abdomen): Inspection/Auscultation: abdomen normal to inspection; abdomen not distended Musculoskeletal: no cyanosis or clubbing, extremities motor strength 5/5 Skin: no rashes, warm and dry Neurologic: moves all extremities and awake Psychiatric: Orientation: alert, oriented to person and cooperative Results & Data Results & Data ([facility]) Vital Signs (Past 12 Hours) Vital Signs Temp Pulse Pulse Pulse Resp BP Pulse Ox 09/26/21 10:23 75 09/26/21 10:09 36.9 C 75 18 116/72 96 09/26/21 10:00 36.9 C 75 18 116/72 96 09/26/21 08:00 36.6 C 87 83 20 94/66 L 94 09/26/21 04:17 36.7 C 90 23 98/72 L 90 09/26/21 00:00 86 PG Care Time/CCT Total # of Minutes Spent Total Time Spent with Patient: Total time spent is greater than 50% in coordination of care (as documented) at patient's floor/unit and/or counseling patient: Coding Level of Care Code 95653 Subseq Hosp Care Lvl 2 Diagnoses Bradycardia R00.1 Hypotension I95.9 Hypotension type: unspecified hypotension type Biventricular congestive heart failure I50.82 Encephalopathy G93.40 UTI (urinary tract infection) N39.0 Acute kidney injury N17.9 Hypercalcemia E83.52 Hyponatremia E87.1 Paroxysmal atrial fibrillation I48.0 Hypothyroid E03.9 Hypervitaminosis D E67.3 Anemia D64.9 Anemia type: unspecified type COPD (chronic obstructive pulmonary disease) J44.9 Dyslipidemia E78.5 Epistaxis R04.0 Osteopenia M85.80 Peripheral arterial disease I73.9 Peripheral neuropathy G62.9 Peripheral neuropathy type: polyneuropathy, unspecified Severe protein-calorie malnutrition E43 (1) Hypotension Hypotension type: unspecified hypotension type Qualified Code(s): I95.9 - Hypotension, unspecified (2) Anemia Anemia type: unspecified type Qualified Code(s): D64.9 - Anemia, unspecified (3) Peripheral neuropathy Peripheral neuropathy type: polyneuropathy, unspecified Qualified Code(s): G62.9 - Polyneuropathy, unspecified
[2021-09-26] MEDS: ONDANSETRON INJ 2 MG/ML 2 ML VIAL IV PRN (17:26)
[2021-09-27] MEDS ORDERED: MELATONIN 3 MG TAB PO ONE (00:59)
[2021-09-27] MEDS: LEVOTHYROXINE SODIUM 75 MCG TABLET PO SCH (05:43)
[2021-09-27 07:38] LABS: Hematocrit (blood only) 33.7 % (37-47); Hemoglobin 10.5 g/dL (12.0-16.0); Mean Corpuscular Hgb Conc 31.2 g/dL (32-36); Mean Corpuscular Volume 86.6 fL (80-100); Platelet Count 167 K/uL (130-400); RDW Coefficient of Variation 22.2 % (11.5-14.5); RDW Standard Deviation 70.3 fL (36.4-46.3); Red Blood Count 3.89 M/uL (4.2-5.4)
[2021-09-27 08:00] LABS: BUN Creatinine Ratio 27.5 (10-20); Creatinine Clr Calc Pharmacy 14.9 ml/min; Est GFR (African American) 27.1 ml/min; Est GFR (Non-African American) 23.4 ml/min; Magnesium 2.2 mg/dl (1.7-2.4); Potassium 3.6 mmol/L (3.5-5.1)
[2021-09-27] MEDS: ASPIRIN 81 MG ECTAB PO SCH (09:11)
[2021-09-27] MEDS: DOCUSATE SODIUM 100 MG CAP PO SCH ×2 (09:11→20:14)
[2021-09-27] MEDS: MAGNESIUM OXIDE 400 MG TAB PO SCH ×2 (09:11→20:12)
[2021-09-27] MEDS: FERROUS SULFATE 325 MG TAB PO SCH (09:11)
[2021-09-27] MEDS: HEPARIN SOD 5,000 UNIT/0.5 ML VIAL SQ SCH ×2 (09:12→20:12)
[2021-09-27] MEDS: traMADol HCL 50 MG TABLET PO PRN (09:12)
[2021-09-27] MEDS: CEROVITE ADV FORMULA TAB PO SCH (09:12)
[2021-09-27] MEDS: PANTOprazole 40 MG TAB PO SCH (09:12)
--- NOTE | 2021-09-27 10:59 | Hospitalist Progress Note ---
Date of Service September 27, 2021 Assessment & Plan (1) Bradycardia: Plan: Symptomatic bradycardia from AV mark agents. Was on dopamine for HR and BP. Weaned off on 09/24 in AM. - Holding amiodarone and beta-андрей - Presently HR back to 70 - 90 bpm. - Increased Synthroid dose as below - Continue to monitor on tele - Continue to hold metoprolol, amiodarone - Appreciate Cardiology consult - does recommend trying to add back amiodarone first, followed by metoprolol and then possibly diuretics. Will defer for now as HR remains steady in the 70 - 90 range. (2) Hypotension: Plan: Symptomatic hypotension secondary to bradycardia. Was on dopamine, but weaned off now. With severe biventricular HF, can expect low BPs. - Continue to hold home metoprolol, amiodarone, Bumex, Aldactone - BP remains low-normal at 95/60 today. (3) Biventricular congestive heart failure: Plan: Severe based on ECHO here, LVEF 15%, severe WMAs, Severe RV dysfunction. Hold diuretics and other meds as above due to pt's bradycardia and hypotension. Patient interested in hospice care after discharge as she does not want to keep coming back to the hospital-looking for placement at skilled facility but will need POLST form filled out prior to discharge documenting her wishes to not return to the hospital and pursue comfort measures if worsens again. (4) Encephalopathy: Plan: Likely hypoxic-ischemic secondary to prolonged bradycardia and hypotension. CT of head and neck was unremarkable for acute mass/bleed/large vessel stroke. - Patient now awake, alert, oriented x 3, mentating well (5) UTI (urinary tract infection): Plan: Ur cx growing Enterococcus faecalis. - Finished Dapto while in the hospital. (6) Acute kidney injury: Plan: Acute on chronic, JIGNA stage 2 based on rise in serum Cr from baseline Cr 1-1.2 to 2.25 on admission. - Secondary to impaired renal perfusion leading to decreased renal function, causing medication buildup/impaired clearance leading to patient's bradycardia. - Cr up to 2.0 on 09/27. - Restart gentle IV fluids on 09/27. (7) Hypercalcemia: Plan: Ca 11.3, ionized 1.39 on admission. Vit D level checked and was >120. iPTH appropriately low normal. - Permanently discontinue home Vit D and calcium supplementation (8) Hyponatremia: Plan: Na 129, serum osmolality 303 which is hypertonic but likely due to elevated BUN. Secondary to CHF. - Na+ today is stable at 131. - Follow (9) Paroxysmal atrial fibrillation: Plan: In sinus rhythm here. - Hold metoprolol and amiodarone due to bradycardia and hypotension. - Not on AC due to h/o epistaxis (10) Hypothyroid: Plan: TSH 12.8. Elevated TSH may be a contributing factor to patient's bradycardia but unlikely to be primary cause. - Increased levothyroxine to 75 mcg (from prior 50 mcg) (11) Hypervitaminosis D: Plan: As above, Vit D > 120 causing hypercalcemia. (12) Anemia: Plan: Mild, hgb 9.8-10, normocytic, likely anemia of chronic disease. - Follow CBC (13) COPD (chronic obstructive pulmonary disease): Plan: No acute issues. Reports no shortness of breath to me today. - Combivent PRN (14) Dyslipidemia: Plan: - Held statin while on Daptomycin - Resumed (15) Epistaxis: Plan: Mild, now resolved. - Afrin spray as needed (16) Osteopenia: Plan: Discontinue home calcium and Vit D for high Vit D and calcium levels (17) Peripheral arterial disease: Plan: - Continue ASA & statin (18) Peripheral neuropathy: Plan: tramadol prn (19) Severe protein-calorie malnutrition: Plan: Severe protein-calorie malnutrition, BMI 13.7 kg/m*m Admission and Anticipated Discharge Date Admission Date: September 22, 2021 Subjective Reports some right rib pain. Denies anything we are doing is helping. Has been there since her fall prior to arrival, but this is first mention of it to me. Reports no fevers/chills, chest pain, shortness of breath, abdominal pain, nausea, or vomiting. Physical Exam Constitutional: WD/WN, vitals as above Eyes: EOM intact bilaterally; no conjunctival abnormality ENMT: external ear and nose normal, oropharynx normal Neck: trachea midline, no thyromegaly normal visual inspection Respiratory: normal respiratory effort, lungs clear to auscultation no respiratory distress Cardiovascular: Rate/Rhythm: regular rate and regular rhythm Gastrointestinal (Abdomen): Inspection/Auscultation: abdomen normal to inspection; abdomen not distended Musculoskeletal: no cyanosis or clubbing, extremities motor strength 5/5 Right rib pain on palpation Skin: no rashes, warm and dry Neurologic: moves all extremities and awake Psychiatric: Orientation: alert, oriented to person and cooperative Results & Data Results & Data ([facility]) Vital Signs (Past 12 Hours) Vital Signs Temp Pulse Pulse Resp BP Pulse Ox 09/27/21 07:05 78 09/27/21 07:00 37.0 C 73 16 94/62 L 91 09/27/21 03:35 37.2 C 78 16 121/73 91 09/26/21 23:23 76 PG Care Time/CCT Total # of Minutes Spent Total Time Spent with Patient: Total time spent is greater than 50% in coordination of care (as documented) at patient's floor/unit and/or counseling patient: Coding Level of Care Code 74995 Subseq Hosp Care Lvl 2 Diagnoses Bradycardia R00.1 Hypotension I95.9 Hypotension type: unspecified hypotension type Biventricular congestive heart failure I50.82 Encephalopathy G93.40 UTI (urinary tract infection) N39.0 Acute kidney injury N17.9 Hypercalcemia E83.52 Hyponatremia E87.1 Paroxysmal atrial fibrillation I48.0 Hypothyroid E03.9 Hypervitaminosis D E67.3 Anemia D64.9 Anemia type: unspecified type COPD (chronic obstructive pulmonary disease) J44.9 Dyslipidemia E78.5 Epistaxis R04.0 Osteopenia M85.80 Peripheral arterial disease I73.9 Peripheral neuropathy G62.9 Peripheral neuropathy type: polyneuropathy, unspecified Severe protein-calorie malnutrition E43 (1) Hypotension Hypotension type: unspecified hypotension type Qualified Code(s): I95.9 - Hypotension, unspecified (2) Anemia Anemia type: unspecified type Qualified Code(s): D64.9 - Anemia, unspecified (3) Peripheral neuropathy Peripheral neuropathy type: polyneuropathy, unspecified Qualified Code(s): G62.9 - Polyneuropathy, unspecified
[2021-09-27] MEDS ORDERED: SODIUM CHLORIDE 0.9% 1000ML 1,000 ML IV SCH (11:00)
--- NOTE | 2021-09-27 11:05 | Cardiology Progress Note ---
Date of Service September 27, 2021 Assessment & Plan (1) Cardiomyopathy: (2) End stage congestive heart failure: (3) Acute renal insufficiency: (4) Acute hypotension: (5) Bradycardia: Plan: Bradycardia resolved and blood pressure back to patient's usual baseline. No overt heart failure. No immediate need for diuretics. If heart rate and/or BP rises further, could add back amiodarone and possibly metoprolol. However, no immediate need for either given her hemodynamics, medication could be adjusted as an outpatient. Discussion regarding future management goals as per below note by MEGA Oquendo: "Although her immediate prognosis is improved, her near and long-term prognosis remain poor. Patient does not want to return to the hospital in the event of another decline. Hospice has been discussed and her and her son are agreeable. Her low EF certainly qualifies her for such. CM to look into potential placement options for her. If she is discharged with hospice services we will defer her heart failure management to their team and she will not require outpatient follow up with the heart failure program." Admission and Anticipated Discharge Date Admission Date: September 22, 2021 Subjective Patient complains of some right-sided rib discomfort/tenderness, otherwise feels well. She denies any anginal type chest pain, dyspnea, palpitations, or lightheadedness. Telemetry overnight showed sinus rhythm in the 70 bpm range. Physical Exam Physical Exam: No distress. Systolic blood pressure mostly 90-110 mmHg range. Pulse 78 bpm and regular. Skin: Nor generalized lesions. HEENT: unremarkable. Neck: Jugular venous pulse just above the clavicle at 90 degrees, no obvious carotid bruits. Lungs: Diminished breath sounds, generally clear. Chest: Tenderness anterior and anterolateral right lower rib cage. Cardiac: regular rhythm, 2/6 apical holosystolic murmur, no diastolic murmur. Abdomen: Nondistended. Extremities: no edema, readily palpable but weak radial pulses. Extremities warm. Neurologic: Alert and interactive, grossly nonfocal. Results & Data ([facility]) Vital Signs (Past 12 Hours) Vital Signs Temp Pulse Pulse Resp BP Pulse Ox 09/27/21 07:05 78 09/27/21 07:00 98.6 F 73 16 94/62 L 91 09/27/21 03:35 99.0 F 78 16 121/73 91 09/26/21 23:23 76 Laboratory Results Sodium 131, potassium 3.6, BUN 56, creatinine 2.04 (up from 1.64) PG Care Time/CCT Total # of Minutes Spent Total Time Spent with Patient: Total time spent is greater than 50% in coordination of care (as documented) at patient's floor/unit and/or counseling patient: Coding Level of Care Code 47081 Subseq Hosp Care Lvl 3 Diagnoses Acute hypotension I95.9 Bradycardia R00.1 End stage congestive heart failure I50.84 Cardiomyopathy I42.9 Acute renal insufficiency N28.9
[2021-09-27] MEDS: ONDANSETRON INJ 2 MG/ML 2 ML VIAL IV PRN ×2 (11:52→17:45)
[2021-09-27] MEDS: LIDOCAINE 5% 1 PATCH TD SCH (12:05)
[2021-09-28] MEDS: traMADol HCL 50 MG TABLET PO PRN ×2 (06:02→16:59)
[2021-09-28] MEDS: LEVOTHYROXINE SODIUM 75 MCG TABLET PO SCH (06:03)
[2021-09-28 06:39] LABS: Hematocrit (blood only) 34.9 % (37-47); Hemoglobin 10.8 g/dL (12.0-16.0); Mean Corpuscular Hemoglobin 27.3 pg (25-34); Mean Corpuscular Hgb Conc 30.9 g/dL (32-36); Mean Corpuscular Volume 88.1 fL (80-100); Mean Platelet Volume 10.5 fL (7.4-10.4); Platelet Count 159 K/uL (130-400); RDW Coefficient of Variation 21.8 % (11.5-14.5); RDW Standard Deviation 70.8 fL (36.4-46.3); Red Blood Count 3.96 M/uL (4.2-5.4); White Blood Count 3.88 K/uL (4.8-10.8)
[2021-09-28 06:59] LABS: BUN Creatinine Ratio 29.8 (10-20); Calcium 10.1 mg/dl (8.5-10.1); Creatinine Clr Calc Pharmacy 16.2 ml/min; Est GFR (Non-African American) 25.9 ml/min; Potassium 3.6 mmol/L (3.5-5.1)
[2021-09-28] MEDS: LIDOCAINE 5% 1 PATCH TD SCH (07:32)
[2021-09-28] MEDS: MAGNESIUM OXIDE 400 MG TAB PO SCH ×2 (08:48→20:40)
[2021-09-28] MEDS: ATORVASTATIN 40 MG TAB PO SCH (08:48)
[2021-09-28] MEDS: HEPARIN SOD 5,000 UNIT/0.5 ML VIAL SQ SCH ×2 (08:48→20:40)
[2021-09-28] MEDS: DOCUSATE SODIUM 100 MG CAP PO SCH ×2 (08:48→20:40)
[2021-09-28] MEDS: PANTOprazole 40 MG TAB PO SCH (08:48)
[2021-09-28] MEDS: CEROVITE ADV FORMULA TAB PO SCH (08:48)
[2021-09-28] MEDS: ASPIRIN 81 MG ECTAB PO SCH (08:48)
--- NOTE | 2021-09-28 10:08 | Cardiology Progress Note ---
Date of Service September 28, 2021 Assessment & Plan (1) Cardiomyopathy: (2) End stage congestive heart failure: (3) Acute renal insufficiency: (4) Acute hypotension: (5) Bradycardia: Plan: Bradycardia resolved and blood pressure back to patient's usual baseline. No overt heart failure, she is able to lie in bed but some crackles noted on lung exam today. At some point she will need resumption of her diuretics, could monitor using a weight-based regimen or wait until she notes symptomatic dyspnea. BP and heart rate are favorable currently, if either rises could gradually add back amiodarone and possibly metoprolol. Patient is interested in hospice program, although this generally precludes office visits to the heart failure program, Isabel Mireles PA-C will be available to the patient for phone consultation to help manage medications (for palliative purposes). Will sign off cardiology. Thank you. Admission and Anticipated Discharge Date Admission Date: September 22, 2021 Subjective Patient was sleeping quietly, easily awakened and looks well. She still complains of some right-sided rib discomfort/tenderness, otherwise f eels well. She denies any anginal type chest pain, dyspnea, palpitations, or lightheadedness. Telemetry overnight showed sinus rhythm in the 70 bpm range. Physical Exam Physical Exam: No distress. Systolic blood pressure mostly 90-110 mmHg range. Pulse 76 bpm and regular. Skin: Nor generalized lesions. HEENT: unremarkable. Neck: Jugular venous pulse just above the clavicle at 90 degrees, no obvious carotid bruits. Lungs: Bibasilar crackles, no wheezing or accessory muscle use. Good airflow. . Chest: Tenderness anterior and anterolateral right lower rib cage. Cardiac: regular rhythm, 2/6 apical holosystolic murmur, no diastolic murmur. Abdomen: Nondistended. Extremities: no edema, readily palpable but weak radial pulses. Extremities warm. Neurologic: Alert and interactive, grossly nonfocal. Results & Data ([facility]) Vital Signs (Past 12 Hours) Vital Signs Temp Pulse Pulse Resp BP BP Pulse Ox 09/28/21 08:00 76 09/28/21 07:11 97.9 F 78 18 111/69 90 09/28/21 03:00 99.3 F 82 20 103/74 94 09/28/21 01:13 79 09/27/21 23:00 98.4 F 77 20 101/67 92 Laboratory Results Sodium 132, potassium 3.6, BUN 56, creatinine 1.88 (down from 2.04). PG Care Time/CCT Total # of Minutes Spent Total Time Spent with Patient: Total time spent is greater than 50% in coordination of care (as documented) at patient's floor/unit and/or counseling patient: Coding Level of Care Code 86822 Subseq Hosp Care Lvl 3 Diagnoses Cardiomyopathy I42.9 End stage congestive heart failure I50.84 Acute renal insufficiency N28.9 Acute hypotension I95.9 Bradycardia R00.1
--- NOTE | 2021-09-28 11:31 | Hospitalist Progress Note ---
Date of Service September 28, 2021 Assessment & Plan (1) Bradycardia: Plan: Symptomatic bradycardia from AV mark agents. Was on dopamine for HR and BP. Weaned off on 09/24 in AM. - Holding amiodarone and beta-андрей - Presently HR back to 70 - 90 bpm. - Increased Synthroid dose as below - Continue to monitor on tele -> HR in the 70 - 80 range. - Continue to hold metoprolol, amiodarone - Appreciate Cardiology consult - No need to add back meds unless heart rate inc reases again. (2) Hypotension: Plan: Symptomatic hypotension secondary to bradycardia. Was on dopamine, but weaned off now. With severe biventricular HF, can expect low BPs. - Continue to hold home metoprolol, amiodarone, Bumex, Aldactone - BP remains low-normal at 100/70 today. (3) Biventricular congestive heart failure: Plan: Severe based on ECHO here, LVEF 15%, severe WMAs, Severe RV dysfunction. Hold diuretics and other meds as above due to pt's bradycardia and hypotension. Patient interested in hospice care after discharge as she does not want to keep coming back to the hospital-looking for placement at skilled facility but will need POLST form filled out prior to discharge documenting her wishes to not return to the hospital and pursue comfort measures if worsens again. (4) Encephalopathy: Plan: Likely hypoxic-ischemic secondary to prolonged bradycardia and hypotension. CT of head and neck was unremarkable for acute mass/bleed/large vessel stroke. - Patient now awake, alert, oriented x 3, mentating well (5) UTI (urinary tract infection): Plan: Ur cx growing Enterococcus faecalis. - Finished Dapto while in the hospital. (6) Acute kidney injury: Plan: Acute on chronic, JIGNA stage 2 based on rise in serum Cr from baseline Cr 1-1.2 to 2.25 on admission. - Secondary to impaired renal perfusion leading to decreased renal function, causing medication buildup/impaired clearance leading to patient's bradycardia. - Cr up to 2.0 on 09/27. - Restarted gentle IV fluids on 09/27 for ~12 hours. Down to 1.9 on 09/28. May need to accept this as new baseline. (7) Hypercalcemia: Plan: Ca 11.3, ionized 1.39 on admission. Vit D level checked and was >120. iPTH appropriately low normal. - Permanently discontinue home Vit D and calcium supplementation (8) Hyponatremia: Plan: Na 129, serum osmolality 303 which is hypertonic but likely due to elevated BUN. Secondary to CHF. - Na+ today is stable at 132. - Follow (9) Paroxysmal atrial fibrillation: Plan: In sinus rhythm here. - Hold metoprolol and amiodarone due to bradycardia and hypotension. - Not on AC due to h/o epistaxis (10) Hypothyroid: Plan: TSH 12.8. Elevated TSH may be a contributing factor to patient's bradycardia but unlikely to be primary cause. - Increased levothyroxine to 75 mcg (from prior 50 mcg) (11) Hypervitaminosis D: Plan: As above, Vit D > 120 causing hypercalcemia. (12) Anemia: Plan: Mild, hgb 9.8-10, normocytic, likely anemia of chronic disease. - Follow CBC (13) COPD (chronic obstructive pulmonary disease): Plan: No acute issues. Reports no shortness of breath to me today. - Combivent PRN (14) Dyslipidemia: Plan: - Held statin while on Daptomycin - Resumed (15) Epistaxis: Plan: Mild, now resolved. - Afrin spray as needed (16) Osteopenia: Plan: Discontinue home calcium and Vit D for high Vit D and calcium levels (17) Peripheral arterial disease: Plan: - Continue ASA & statin (18) Peripheral neuropathy: Plan: tramadol prn (19) Severe protein-calorie malnutrition: Plan: Severe protein-calorie malnutrition, BMI 13.7 kg/m*m Admission and Anticipated Discharge Date Admission Date: September 22, 2021 Subjective Hurts all over today. She is tired after the tramadol, and keeps nodding off, but does report to me that she still has neck pain and some of the rib pain from yesterday. Reports no fevers/chills, chest pain, shortness of breath, abdominal pain, nausea, or vomiting. Physical Exam Constitutional: WD/WN, vitals as above Eyes: EOM intact bilaterally; no conjunctival abnormality ENMT: external ear and nose normal, oropharynx normal Neck: trachea midline, no thyromegaly normal visual inspection Respiratory: normal respiratory effort, lungs clear to auscultation no respiratory distress Cardiovascular: Rate/Rhythm: regular rate and regular rhythm Gastrointestinal (Abdomen): Inspection/Auscultation: abdomen normal to inspection; abdomen not distended Musculoskeletal: no cyanosis or clubbing, extremities motor strength 5/5 Skin: no rashes, warm and dry Neurologic: moves all extremities and awake Psychiatric: Orientation: alert, oriented to person and cooperative Results & Data Results & Data ([facility]) Vital Signs (Past 12 Hours) Vital Signs Temp Pulse Pulse Resp BP BP Pulse Ox 09/28/21 08:00 76 09/28/21 07:11 36.6 C 78 18 111/69 90 09/28/21 03:00 37.4 C 82 20 103/74 94 09/28/21 01:13 79 PG Care Time/CCT Total # of Minutes Spent Total Time Spent with Patient: Total time spent is greater than 50% in coordination of care (as documented) at patient's floor/unit and/or counseling patient: Coding Level of Care Code 81591 Subseq Hosp Care Lvl 2 Diagnoses Bradycardia R00.1 Hypotension I95.9 Hypotension type: unspecified hypotension type Biventricular congestive heart failure I50.82 Encephalopathy G93.40 UTI (urinary tract infection) N39.0 Acute kidney injury N17.9 Hypercalcemia E83.52 Hyponatremia E87.1 Paroxysmal atrial fibrillation I48.0 Hypothyroid E03.9 Hypervitaminosis D E67.3 Anemia D64.9 Anemia type: unspecified type COPD (chronic obstructive pulmonary disease) J44.9 Dyslipidemia E78.5 Epistaxis R04.0 Osteopenia M85.80 Peripheral arterial disease I73.9 Peripheral neuropathy G62.9 Peripheral neuropathy type: polyneuropathy, unspecified Severe protein-calorie malnutrition E43 (1) Hypotension Hypotension type: unspecified hypotension type Qualified Code(s): I95.9 - Hypotension, unspecified (2) Anemia Anemia type: unspecified type Qualified Code(s): D64.9 - Anemia, unspecified (3) Peripheral neuropathy Peripheral neuropathy type: polyneuropathy, unspecified Qualified Code(s): G62.9 - Polyneuropathy, unspecified
[2021-09-28] MEDS: ONDANSETRON INJ 2 MG/ML 2 ML VIAL IV PRN (16:53)
[2021-09-28] MEDS ORDERED: ACETAMINOPHEN 325 MG TAB PO PRN (23:17)
[2021-09-29] MEDS: DICLOFENAC SOD 1% GEL 100 GM TUBE EXT PRN (00:38)
[2021-09-29] MEDS: LEVOTHYROXINE SODIUM 75 MCG TABLET PO SCH (05:52)
[2021-09-29] MEDS: traMADol HCL 50 MG TABLET PO PRN ×2 (07:30→17:38)
[2021-09-29] MEDS: ASPIRIN 81 MG ECTAB PO SCH (08:34)
[2021-09-29] MEDS: PANTOprazole 40 MG TAB PO SCH (08:34)
[2021-09-29] MEDS: HEPARIN SOD 5,000 UNIT/0.5 ML VIAL SQ SCH ×2 (08:35→19:37)
[2021-09-29] MEDS: ATORVASTATIN 40 MG TAB PO SCH (08:35)
[2021-09-29] MEDS: CEROVITE ADV FORMULA TAB PO SCH (08:35)
[2021-09-29] MEDS: FERROUS SULFATE 325 MG TAB PO SCH (08:35)
[2021-09-29] MEDS: LIDOCAINE 5% 1 PATCH TD SCH (08:37)
[2021-09-29] MEDS: MAGNESIUM OXIDE 400 MG TAB PO SCH (10:05)
[2021-09-29] MEDS: DOCUSATE SODIUM 100 MG CAP PO SCH ×2 (10:05→19:42)
--- NOTE | 2021-09-29 14:30 | Hospitalist Progress Note ---
Date of Service September 29, 2021 Assessment & Plan (1) Bradycardia: Plan: Symptomatic bradycardia from AV mark agents. Was on dopamine for HR and BP. Weaned off on 09/24 in AM. - Holding amiodarone and beta-андрей - Presently HR back to 70 - 90 bpm. - Increased Synthroid dose as below - Continue to monitor on tele -> HR in the 70 - 80 range. - Continue to hold metoprolol, amiodarone - Appreciate Cardiology consult - No need to add back meds unless heart rate inc reases again. Still stable today. (2) Hypotension: Plan: Symptomatic hypotension secondary to bradycardia. Was on dopamine, but weaned off now. With severe biventricular HF, can expect low BPs. - Continue to hold home metoprolol, amiodarone, Bumex, Aldactone - BP remains low-normal at 95/65 today. (3) Biventricular congestive heart failure: Plan: Severe based on ECHO here, LVEF 15%, severe WMAs, Severe RV dysfunction. Hold diuretics and other meds as above due to pt's bradycardia and hypotension. Patient interested in hospice care after discharge as she does not want to keep coming back to the hospital-looking for placement at skilled facility but will need POLST form filled out prior to discharge documenting her wishes to not return to the hospital and pursue comfort measures if worsens again. - Appears euvolemic today. (4) Encephalopathy: Plan: Likely hypoxic-ischemic secondary to prolonged bradycardia and hypotension. CT of head and neck was unremarkable for acute mass/bleed/large vessel stroke. - Patient now awake, alert, oriented x 3, mentating well (5) UTI (urinary tract infection): Plan: Ur cx growing Enterococcus faecalis. - Finished Dapto while in the hospital. (6) Acute kidney injury: Plan: Acute on chronic, JIGNA stage 2 based on rise in serum Cr from baseline Cr 1-1.2 to 2.25 on admission. - Secondary to impaired renal perfusion leading to decreased renal function, causing medication buildup/impaired clearance leading to patient's bradycardia. - Cr up to 2.0 on 09/27. - Restarted gentle IV fluids on 09/27 for ~12 hours. Down to 1.9 on 09/28. May need to accept this as new baseline. (7) Hypercalcemia: Plan: Ca 11.3, ionized 1.39 on admission. Vit D level checked and was >120. iPTH appropriately low normal. - Permanently discontinue home Vit D and calcium supplementation (8) Hyponatremia: Plan: Na 129, serum osmolality 303 which is hypertonic but likely due to elevated BUN. Secondary to CHF. - Na+ today is stable at 132. - Follow (9) Paroxysmal atrial fibrillation: Plan: In sinus rhythm here. - Hold metoprolol and amiodarone due to bradycardia and hypotension. - Not on AC due to h/o epistaxis (10) Hypothyroid: Plan: TSH 12.8. Elevated TSH may be a contributing factor to patient's bradycardia but unlikely to be primary cause. - Increased levothyroxine to 75 mcg (from prior 50 mcg) (11) Hypervitaminosis D: Plan: As above, Vit D > 120 causing hypercalcemia. (12) Anemia: Plan: Mild, hgb 9.8-10, normocytic, likely anemia of chronic disease. - Follow CBC (13) COPD (chronic obstructive pulmonary disease): Plan: No acute issues. Reports no shortness of breath to me today. - Combivent PRN (14) Dyslipidemia: Plan: - Held statin while on Daptomycin - Resumed (15) Epistaxis: Plan: Mild, now resolved. - Afrin spray as needed (16) Osteopenia: Plan: Discontinue home calcium and Vit D for high Vit D and calcium levels (17) Peripheral arterial disease: Plan: - Continue ASA & statin (18) Peripheral neuropathy: Plan: Tramadol prn (19) Severe protein-calorie malnutrition: Plan: Severe protein-calorie malnutrition, BMI 13.7 kg/m*m Admission and Anticipated Discharge Date Admission Date: September 22, 2021 Subjective Doing stably today. Still with right rib pain, but less pain all over. Reports no fevers/chills, chest pain, shortness of breath, abdominal pain, nausea, or vomiting. Physical Exam Constitutional: WD/WN, vitals as above Eyes: EOM intact bilaterally; no conjunctival abnormality ENMT: external ear and nose normal, oropharynx normal Neck: trachea midline, no thyromegaly normal visual inspection Respiratory: normal respiratory effort, lungs clear to auscultation no respiratory distress Cardiovascular: Rate/Rhythm: regular rate and regular rhythm Gastrointestinal (Abdomen): Inspection/Auscultation: abdomen normal to inspection; abdomen not distended Musculoskeletal: no cyanosis or clubbing, extremities motor strength 5/5 Skin: no rashes, warm and dry Neurologic: moves all extremities and awake Psychiatric: Orientation: alert, oriented to person and cooperative Results & Data Results & Data ([facility]) Vital Signs (Past 12 Hours) Vital Signs Temp Pulse Pulse Resp BP BP Pulse Ox 09/29/21 11:37 36.6 C 74 20 96/66 L 94 09/29/21 07:19 37.1 C 78 20 116/69 92 09/29/21 07:00 74 09/29/21 03:15 36.7 C 75 20 94/63 L 92 PG Care Time/CCT Total # of Minutes Spent Total Time Spent with Patient: Total time spent is greater than 50% in coordination of care (as documented) at patient's floor/unit and/or counseling patient: Coding Level of Care Code 35749 Subseq Hosp Care Lvl 2 Diagnoses Bradycardia R00.1 Hypotension I95.9 Hypotension type: unspecified hypotension type Biventricular congestive heart failure I50.82 Encephalopathy G93.40 UTI (urinary tract infection) N39.0 Acute kidney injury N17.9 Hypercalcemia E83.52 Hyponatremia E87.1 Paroxysmal atrial fibrillation I48.0 Hypothyroid E03.9 Hypervitaminosis D E67.3 Anemia D64.9 Anemia type: unspecified type COPD (chronic obstructive pulmonary disease) J44.9 Dyslipidemia E78.5 Epistaxis R04.0 Osteopenia M85.80 Peripheral arterial disease I73.9 Peripheral neuropathy G62.9 Peripheral neuropathy type: polyneuropathy, unspecified Severe protein-calorie malnutrition E43 (1) Hypotension Hypotension type: unspecified hypotension type Qualified Code(s): I95.9 - Hypotension, unspecified (2) Anemia Anemia type: unspecified type Qualified Code(s): D64.9 - Anemia, unspecified (3) Peripheral neuropathy Peripheral neuropathy type: polyneuropathy, unspecified Qualified Code(s): G62.9 - Polyneuropathy, unspecified
[2021-09-30] MEDS: LEVOTHYROXINE SODIUM 75 MCG TABLET PO SCH (06:15)
[2021-09-30] MEDS: LIDOCAINE 5% 1 PATCH TD SCH (08:45)
[2021-09-30] MEDS: HEPARIN SOD 5,000 UNIT/0.5 ML VIAL SQ SCH ×2 (08:48→19:38)
[2021-09-30] MEDS: ASPIRIN 81 MG ECTAB PO SCH (08:48)
[2021-09-30] MEDS: ATORVASTATIN 40 MG TAB PO SCH (08:49)
[2021-09-30] MEDS: PANTOprazole 40 MG TAB PO SCH (08:49)
[2021-09-30] MEDS: CEROVITE ADV FORMULA TAB PO SCH (08:49)
[2021-09-30] MEDS: DOCUSATE SODIUM 100 MG CAP PO SCH ×2 (08:52→19:36)
--- NOTE | 2021-09-30 11:38 | Hospitalist Progress Note ---
Date of Service September 30, 2021 Assessment & Plan (1) Bradycardia: Plan: Symptomatic bradycardia from AV mark agents. Was on dopamine for HR and BP. Weaned off on 09/24 in AM. - Holding amiodarone and beta-андрей - Presently HR back to 70 - 90 bpm. - Increased Synthroid dose as below - Continue to monitor on tele -> HR in the 70 - 80 range. - Continue to hold metoprolol, amiodarone - Appreciate Cardiology consult - No need to add back meds unless heart rate inc reases again. - HR still good. (2) Hypotension: Plan: Symptomatic hypotension secondary to bradycardia. Was on dopamine, but weaned off now. With severe biventricular HF, can expect low BPs. - Continue to hold home metoprolol, amiodarone, Bumex, Aldactone - BP remains low-normal at 95/65 today. (3) Biventricular congestive heart failure: Plan: Severe based on ECHO here, LVEF 15%, severe WMAs, Severe RV dysfunction. Hold diuretics and other meds as above due to pt's bradycardia and hypotension. Patient interested in hospice care after discharge as she does not want to keep coming back to the hospital-looking for placement at skilled facility but will need POLST form filled out prior to discharge documenting her wishes to not return to the hospital and pursue comfort measures if worsens again. - Appears euvolemic today. (4) Encephalopathy: Plan: Likely hypoxic-ischemic secondary to prolonged bradycardia and hypotension. CT of head and neck was unremarkable for acute mass/bleed/large vessel stroke. - Patient now awake, alert, oriented x 3, mentating well (5) UTI (urinary tract infection): Plan: Ur cx growing Enterococcus faecalis. - Finished Dapto while in the hospital. (6) Acute kidney injury: Plan: Acute on chronic, JIGNA stage 2 based on rise in serum Cr from baseline Cr 1-1.2 to 2.25 on admission. - Secondary to impaired renal perfusion leading to decreased renal function, causing medication buildup/impaired clearance leading to patient's bradycardia. - Cr up to 2.0 on 09/27. - Restarted gentle IV fluids on 09/27 for ~12 hours. Down to 1.9 on 09/28. May need to accept this as new baseline. (7) Hypercalcemia: Plan: Ca 11.3, ionized 1.39 on admission. Vit D level checked and was >120. iPTH appropriately low normal. - Permanently discontinue home Vit D and calcium supplementation (8) Hyponatremia: Plan: Na 129, serum osmolality 303 which is hypertonic but likely due to elevated BUN. Secondary to CHF. - Na+ today is stable at 132. - Follow (9) Paroxysmal atrial fibrillation: Plan: In sinus rhythm here. - Hold metoprolol and amiodarone due to bradycardia and hypotension. - Not on AC due to h/o epistaxis (10) Hypothyroid: Plan: TSH 12.8. Elevated TSH may be a contributing factor to patient's bradycardia but unlikely to be primary cause. - Increased levothyroxine to 75 mcg (from prior 50 mcg) (11) Hypervitaminosis D: Plan: As above, Vit D > 120 causing hypercalcemia. (12) Anemia: Plan: Mild, hgb 9.8-10, normocytic, likely anemia of chronic disease. - Follow CBC (13) COPD (chronic obstructive pulmonary disease): Plan: No acute issues. Reports no shortness of breath to me today. - Combivent PRN (14) Dyslipidemia: Plan: - Held statin while on Daptomycin - Resumed (15) Epistaxis: Plan: Mild, now resolved. - Afrin spray as needed (16) Osteopenia: Plan: Discontinue home calcium and Vit D for high Vit D and calcium levels (17) Peripheral arterial disease: Plan: - Continue ASA & statin (18) Peripheral neuropathy: Plan: Tramadol prn (19) Severe protein-calorie malnutrition: Plan: Severe protein-calorie malnutrition, BMI 13.7 kg/m*m Admission and Anticipated Discharge Date Admission Date: September 22, 2021 Subjective Doing stably today. Some stomach pain. Still with right rib pain, but less pain all over. Reports no fevers/chills, chest pain, shortness of breath, nausea, or vomiting. Physical Exam Constitutional: WD/WN, vitals as above Eyes: EOM intact bilaterally; no conjunctival abnormality ENMT: external ear and nose normal, oropharynx normal Neck: trachea midline, no thyromegaly normal visual inspection Respiratory: normal respiratory effort, lungs clear to auscultation no respiratory distress Cardiovascular: Rate/Rhythm: regular rate and regular rhythm Gastrointestinal (Abdomen): Inspection/Auscultation: abdomen normal to inspection; abdomen not distended Musculoskeletal: no cyanosis or clubbing, extremities motor strength 5/5 Skin: no rashes, warm and dry Neurologic: moves all extremities and awake Psychiatric: Orientation: alert, oriented to person and cooperative Results & Data Results & Data ([facility]) Vital Signs (Past 12 Hours) Vital Signs Temp Pulse Resp BP BP Pulse Ox 09/30/21 11:00 36.4 C L 76 16 127/81 95 09/30/21 07:00 36.4 C L 86 16 112/73 91 09/30/21 03:22 36.6 C 82 18 130/72 94 PG Care Time/CCT Total # of Minutes Spent Total Time Spent with Patient: Total time spent is greater than 50% in coordination of care (as documented) at patient's floor/unit and/or counseling patient: Coding Level of Care Code 89077 Subseq Hosp Care Lvl 1 Diagnoses Bradycardia R00.1 Hypotension I95.9 Hypotension type: unspecified hypotension type Biventricular congestive heart failure I50.82 Encephalopathy G93.40 UTI (urinary tract infection) N39.0 Acute kidney injury N17.9 Hypercalcemia E83.52 Hyponatremia E87.1 Paroxysmal atrial fibrillation I48.0 Hypothyroid E03.9 Hypervitaminosis D E67.3 Anemia D64.9 Anemia type: unspecified type COPD (chronic obstructive pulmonary disease) J44.9 Dyslipidemia E78.5 Epistaxis R04.0 Osteopenia M85.80 Peripheral arterial disease I73.9 Peripheral neuropathy G62.9 Peripheral neuropathy type: polyneuropathy, unspecified Severe protein-calorie malnutrition E43 (1) Hypotension Hypotension type: unspecified hypotension type Qualified Code(s): I95.9 - Hypotension, unspecified (2) Anemia Anemia type: unspecified type Qualified Code(s): D64.9 - Anemia, unspecified (3) Peripheral neuropathy Peripheral neuropathy type: polyneuropathy, unspecified Qualified Code(s): G62.9 - Polyneuropathy, unspecified
[2021-09-30] MEDS: traMADol HCL 50 MG TABLET PO PRN (19:36)
[2021-10-01] MEDS: LEVOTHYROXINE SODIUM 75 MCG TABLET PO SCH (06:00)
[2021-10-01] MEDS: DICLOFENAC SOD 1% GEL 100 GM TUBE EXT PRN (06:00)
[2021-10-01] MEDS: ATORVASTATIN 40 MG TAB PO SCH (08:12)
[2021-10-01] MEDS: CEROVITE ADV FORMULA TAB PO SCH (08:13)
[2021-10-01] MEDS: PANTOprazole 40 MG TAB PO SCH (08:13)
[2021-10-01] MEDS: LIDOCAINE 5% 1 PATCH TD SCH (08:13)
[2021-10-01] MEDS: FERROUS SULFATE 325 MG TAB PO SCH (08:14)
[2021-10-01] MEDS: HEPARIN SOD 5,000 UNIT/0.5 ML VIAL SQ SCH (08:14)
[2021-10-01] MEDS: ASPIRIN 81 MG ECTAB PO SCH (08:14)
[2021-10-01] MEDS: DOCUSATE SODIUM 100 MG CAP PO SCH ×2 (08:27→20:46)
[2021-10-01 09:16] LABS: Mean Corpuscular Hgb Conc 31.8 g/dL (32-36)
[2021-10-01 09:24] LABS: Hematocrit (blood only) 36.5 % (37-47); Hemoglobin 11.6 g/dL (12.0-16.0); Mean Corpuscular Hemoglobin 27.5 pg (25-34); Mean Corpuscular Volume 86.5 fL (80-100); RDW Coefficient of Variation 21.3 % (11.5-14.5); RDW Standard Deviation 67.7 fL (36.4-46.3); Red Blood Count 4.22 M/uL (4.2-5.4); White Blood Count 4.36 K/uL (4.8-10.8)
[2021-10-01 09:43] LABS: Albumin Level 3.8 gm/dl (3.4-5.0); BUN Creatinine Ratio 27.4 (10-20); Bilirubin,Total 1.2 mg/dl (0.2-1.0); Calcium 9.7 mg/dl (8.5-10.1); Creatinine Clr Calc Pharmacy 21.5 ml/min; Est GFR (African American) 31.8 ml/min; Est GFR (Non-African American) 27.4 ml/min; Globulin 3.7 gm/dl (2.5-4.0); Magnesium 1.9 mg/dl (1.7-2.4); Potassium 3.8 mmol/L (3.5-5.1); Total Protein 7.5 gm/dl (6.0-8.3)
[2021-10-01 09:52] LABS: Platelet Count 88 K/uL (130-400); Platelet Estimate Decreased (Normal)
--- NOTE | 2021-10-01 11:21 | Hospitalist Progress Note ---
Date of Service October 01, 2021 Assessment & Plan (1) Bradycardia: Plan: Symptomatic bradycardia from AV mark agents. Was on dopamine for HR and BP. Weaned off on 09/24 in AM. - Holding amiodarone and beta-андрей - Presently HR back to 70 - 90 bpm. - Increased Synthroid dose as below - Continue to monitor on tele -> HR in the 70 - 80 range. - Continue to hold metoprolol, amiodarone - Appreciate Cardiology consult - No need to add back meds unless heart rate inc reases again. - HR stable for days now. Will move off telemetry. - HR still good. Awaiting placement. Discussion with son on 09/30 that we will move toward comfort. I will try to minimize any meds that aren't focused on making her feel better. (2) Hypotension: Plan: Symptomatic hypotension secondary to bradycardia. Was on dopamine, but weaned off now. With severe biventricular HF, can expect low BPs. - Continue to hold home metoprolol, amiodarone, Bumex, Aldactone - BP remains low-normal at 105/70 today. (3) Biventricular congestive heart failure: Plan: Severe based on ECHO here, LVEF 15%, severe WMAs, Severe RV dysfunction. Hold diuretics and other meds as above due to pt's bradycardia and hypotension. Patient interested in hospice care after discharge as she does not want to keep coming back to the hospital-looking for placement at skilled facility but will need POLST form filled out prior to discharge documenting her wishes to not return to the hospital and pursue comfort measures if worsens again. - Appears euvolemic today. (4) Encephalopathy: Plan: Likely hypoxic-ischemic secondary to prolonged bradycardia and hypotension. CT of head and neck was unremarkable for acute mass/bleed/large vessel stroke. - Patient now awake, alert, oriented x 3 - Appears somewhat confused and irritable. (5) UTI (urinary tract infection): Plan: Ur cx growing Enterococcus faecalis. - Finished Dapto while in the hospital. (6) Acute kidney injury: Plan: Acute on chronic, JIGNA stage 2 based on rise in serum Cr from baseline Cr 1-1.2 to 2.25 on admission. - Secondary to impaired renal perfusion leading to decreased renal function, c ausing medication buildup/impaired clearance leading to patient's bradycardia. - Cr up to 2.0 on 09/27. - Restarted gentle IV fluids on 09/27 for ~12 hours. Down to 1.9 on 09/28. May need to accept this as new baseline. (7) Hypercalcemia: Plan: Ca 11.3, ionized 1.39 on admission. Vit D level checked and was >120. iPTH appropriately low normal. - Permanently discontinue home Vit D and calcium supplementation (8) Hyponatremia: Plan: Na 129, serum osmolality 303 which is hypertonic but likely due to elevated BUN. Secondary to CHF. - Na+ today is stable at 135. - Follow (9) Paroxysmal atrial fibrillation: Plan: In sinus rhythm here. - Hold metoprolol and amiodarone due to bradycardia and hypotension. - Not on AC due to h/o epistaxis (10) Hypothyroid: Plan: TSH 12.8. Elevated TSH may be a contributing factor to patient's bradycardia but unlikely to be primary cause. - Increased levothyroxine to 75 mcg (from prior 50 mcg) (11) Hypervitaminosis D: Plan: As above, Vit D > 120 causing hypercalcemia. (12) Anemia: Plan: Mild, hgb 9.8-10, normocytic, likely anemia of chronic disease. - Follow CBC (13) COPD (chronic obstructive pulmonary disease): Plan: No acute issues. Reports no shortness of breath to me today. - Combivent PRN (14) Dyslipidemia: Plan: - Held statin while on Daptomycin - Stopped on 10/01 to move toward comfort. (15) Epistaxis: Plan: Mild, now resolved. - Afrin spray as needed (16) Osteopenia: Plan: Discontinue home calcium and Vit D for high Vit D and calcium levels (17) Peripheral arterial disease: Plan: - Continue ASA (18) Peripheral neuropathy: Plan: Tramadol prn (19) Severe protein-calorie malnutrition: Plan: Severe protein-calorie malnutrition, BMI 13.7 kg/m*m Admission and Anticipated Discharge Date Admission Date: September 22, 2021 Subjective Variety of complaints today. She feels pain all over and feel the lidocaine patches are making it worse. She says they are too "cold" for her. She does deny any hallucinations for me and reports that her stomach is not hurting too much. Reports no fevers/chills, chest pain, shortness of breath, abdominal pain, or vomiting. Physical Exam Constitutional: WD/WN, vitals as above Eyes: EOM intact bilaterally; no conjunctival abnormality ENMT: external ear and nose normal, oropharynx normal Neck: trachea midline, no thyromegaly normal visual inspection Respiratory: normal respiratory effort, lungs clear to auscultation no respiratory distress Cardiovascular: Rate/Rhythm: regular rate and regular rhythm Gastrointestinal (Abdomen): Inspection/Auscultation: abdomen normal to inspection; abdomen not distended Musculoskeletal: no cyanosis or clubbing, extremities motor strength 5/5 Skin: no rashes, warm and dry Neurologic: moves all extremities and awake Psychiatric: Orientation: alert, oriented to person and cooperative Results & Data Results & Data ([facility]) Vital Signs (Past 12 Hours) Vital Signs Temp Pulse Pulse Resp BP Pulse Ox 10/01/21 08:07 37.3 C 84 19 103/70 92 10/01/21 07:00 88 10/01/21 03:39 36.5 C 86 18 96/69 L 91 09/30/21 23:29 75 PG Care Time/CCT Total # of Minutes Spent Total Time Spent with Patient: Total time spent is greater than 50% in coordination of care (as documented) at patient's floor/unit and/or counseling patient: Coding Level of Care Code 37514 Subseq Hosp Care Lvl 2 Diagnoses Bradycardia R00.1 Hypotension I95.9 Hypotension type: unspecified hypotension type Biventricular congestive heart failure I50.82 Encephalopathy G93.40 UTI (urinary tract infection) N39.0 Acute kidney injury N17.9 Hypercalcemia E83.52 Hyponatremia E87.1 Paroxysmal atrial fibrillation I48.0 Hypothyroid E03.9 Hypervitaminosis D E67.3 Anemia D64.9 Anemia type: unspecified type COPD (chronic obstructive pulmonary disease) J44.9 Dyslipidemia E78.5 Epistaxis R04.0 Osteopenia M85.80 Peripheral arterial disease I73.9 Peripheral neuropathy G62.9 Peripheral neuropathy type: polyneuropathy, unspecified Severe protein-calorie malnutrition E43 (1) Hypotension Hypotension type: unspecified hypotension type Qualified Code(s): I95.9 - Hypotension, unspecified (2) Anemia Anemia type: unspecified type Qualified Code(s): D64.9 - Anemia, unspecified (3) Peripheral neuropathy Peripheral neuropathy type: polyneuropathy, unspecified Qualified Code(s): G62.9 - Polyneuropathy, unspecified
[2021-10-02] MEDS: traMADol HCL 50 MG TABLET PO PRN ×2 (00:08→21:29)
[2021-10-02] MEDS: COUGH DROP (SUGAR FREE) LOZ 24 LOZ/1 BOX BUCCAL PRN (00:22)
[2021-10-02] MEDS: LEVOTHYROXINE SODIUM 75 MCG TABLET PO SCH (06:06)
[2021-10-02] MEDS: PANTOprazole 40 MG TAB PO SCH (09:04)
[2021-10-02] MEDS: BUMETANIDE 1 MG TAB PO SCH (09:04)
[2021-10-02] MEDS: DOCUSATE SODIUM 100 MG CAP PO SCH ×2 (09:04→21:29)
--- NOTE | 2021-10-02 12:08 | Hospitalist Progress Note ---
Date of Service October 02, 2021 Assessment & Plan (1) Bradycardia: Plan: Symptomatic bradycardia from AV mark agents. Was on dopamine for HR and BP. Weaned off on 09/24 in AM. - Holding amiodarone and beta-андрей - Presently HR back to 70 - 90 bpm, now off tele - Increased Synthroid dose as below - Continue to hold metoprolol, amiodarone - Appreciate Cardiology consult - No need to add back meds unless heart rate increases again. -Awaiting placement. Discussion with son stewart previoushospitalist on 09/30 that we will move toward comfort. Will try to minimize any meds that aren't focused on making her feel better. (2) Hypotension: Plan: Symptomatic hypotension secondary to bradycardia. Was on dopamine, but weaned off now. With severe biventricular HF, can expect low BPs. - Continue to hold home metoprolol, amiodarone, Aldactone, but restarted Bumex for JVD and for comfort - BP remains low-normal (3) Biventricular congestive heart failure: Plan: Severe based on ECHO here, LVEF 15%, severe WMAs, Severe RV dysfunction. Hold diuretics and other meds as above due to pt's bradycardia and hypotension. Patient interested in hospice care after discharge as she does not want to keep coming back to the hospital-looking for placement at skilled facility but will need POLST form filled out prior to discharge documenting her wishes to not return to the hospital and pursue comfort measures if worsens again. - Appears euvolemic today. (4) Encephalopathy: Plan: Likely hypoxic-ischemic secondary to prolonged bradycardia and hypotension. CT of head and neck was unremarkable for acute mass/bleed/large vessel stroke. - Patient now awake, alert, oriented x 3 - Appears somewhat confused and irritable. (5) UTI (urinary tract infection): Plan: Ur cx growing Enterococcus faecalis. - Finished Dapto while in the hospital. (6) Acute kidney injury: Plan: Acute on chronic, JIGNA stage 2 based on rise in serum Cr from baseline Cr 1-1.2 to 2.25 on admission. - Secondary to impaired renal perfusion leading to decreased renal function, causing medication buildup/impaired clearance leading to patient's bradycardia. - Cr up to 2.0 on 09/27. - Restarted gentle IV fluids on 09/27 for ~12 hours. Down to 1.9 on 09/28. May need to accept this as new baseline. (7) Hypercalcemia: Plan: Ca 11.3, ionized 1.39 on admission. Vit D level checked and was >120. iPTH appropriately low normal. - Permanently discontinue home Vit D and calcium supplementation (8) Hyponatremia: Plan: Na 129, serum osmolality 303 which is hypertonic but likely due to elevated BUN. Secondary to CHF. - Na+ stable at 135. - Follow periodically (9) Paroxysmal atrial fibrillation: Plan: In sinus rhythm here. - Hold metoprolol and amiodarone due to bradycardia and hypotension. - Not on AC due to h/o epistaxis (10) Hypothyroid: Plan: TSH 12.8. Elevated TSH may be a contributing factor to patient's bradycardia but unlikely to be primary cause. - Increased levothyroxine to 75 mcg (from prior 50 mcg) (11) Hypervitaminosis D: Plan: As above, Vit D > 120 causing hypercalcemia. (12) Anemia: Plan: Mild, hgb 9.8-10, normocytic, likely anemia of chronic disease. - Follow CBC (13) COPD (chronic obstructive pulmonary disease): Plan: No acute issues. Reports no shortness of breath to me today. - Combivent PRN (14) Dyslipidemia: Plan: - Held statin while on Daptomycin - Stopped on 10/01 to move toward comfort. (15) Epistaxis: Plan: Mild, now resolved. - Afrin spray as needed (16) Osteopenia: Plan: Discontinued home calcium and Vit D for high Vit D and calcium levels (17) Peripheral arterial disease: Plan: - Continue ASA (18) Peripheral neuropathy: Plan: Tramadol prn (19) Severe protein-calorie malnutrition: Plan: Severe protein-calorie malnutrition, BMI 13.7 kg/m*m (20) Oral candidiasis: Plan: with throat pain, no fevers start Magic swizzle with nystatin and dexamethasone for Candidiasis and pain (21) Thrombocytopenia: Plan: plts dropped to the 80s on 10/01, not checked today could be side effect of previous antibiotics? has had some low plts in the past Follow CBC tomorrow no evidence of bleeding (22) Chronic pain: Plan: continue tramadol prn-this may be contributing to some occasional hallucinations Plan: DVT Proph-none for comfort Dispo-awaiting custodial placement in [place] Admission and Anticipated Discharge Date Admission Date: September 22, 2021 Subjective Reports "I feel terrible." Says she has had a sore throat for days. No SOB. Can't eat because of her throat pain. Sitting in bedside chair Review of Systems Review of Systems: All systems reviewed & are unremarkable except as noted in HPI & below Physical Exam Constitutional: + ill appearing, + thin and + cachectic; no acute distress and no altered mental status Eyes: + anicteric sclerae ENMT: Mouth: + oral mucosal abnormality (diffuse erythema,dry MM,small white exudate) Neck: trachea midline, no thyromegaly Respiratory: normal respiratory effort Auscultation: + crackles (bibasilar); no rhonchi and no wheezes Cardiovascular: Rate/Rhythm: regular rate and regular rhythm Heart Sounds: + murmur (3/6 systolic murmur at LLSB) Extremities: no edema Chest (Breasts): Chest: normal inspection of chest Gastrointestinal (Abdomen): normal bowel sounds, soft, nontender, no hepatosplenomegaly Musculoskeletal: Extremities: extremities normal to inspection; no cyanosis and no clubbing Skin: no rashes, warm and dry Neurologic: moves all extremities and awake; no focal motor deficits Psychiatric: Orientation: alert, oriented to person, oriented to place and cooperative Lymphatic: no lymphedema Results & Data Results & Data ([facility]) Vital Signs (Past 12 Hours) Vital Signs Temp Pulse Resp BP Pulse Ox 10/02/21 08:08 37.1 C 81 16 106/73 95 PG Care Time/CCT Total # of Minutes Spent Total Time Spent with Patient: Total time spent is greater than 50% in coordination of care (as documented) at patient's floor/unit and/or counseling patient: Coding Level of Care Code 87517 Subseq Hosp Care Lvl 2 Diagnoses Bradycardia R00.1 Hypotension I95.9 Hypotension type: unspecified hypotension type Biventricular congestive heart failure I50.82 Encephalopathy G93.40 UTI (urinary tract infection) N39.0 Acute kidney injury N17.9 Hypercalcemia E83.52 Hyponatremia E87.1 Paroxysmal atrial fibrillation I48.0 Hypothyroid E03.9 Hypervitaminosis D E67.3 Anemia D64.9 Anemia type: unspecified type COPD (chronic obstructive pulmonary disease) J44.9 Dyslipidemia E78.5 Epistaxis R04.0 Osteopenia M85.80 Peripheral arterial disease I73.9 Peripheral neuropathy G62.9 Peripheral neuropathy type: polyneuropathy, unspecified Severe protein-calorie malnutrition E43 Oral candidiasis B37.0 Thrombocytopenia D69.6 Chronic pain G89.29 (1) Hypotension Hypotension type: unspecified hypotension type Qualified Code(s): I95.9 - Hypotension, unspecified (2) Anemia Anemia type: unspecified type Qualified Code(s): D64.9 - Anemia, unspecified (3) Peripheral neuropathy Peripheral neuropathy type: polyneuropathy, unspecified Qualified Code(s): G62.9 - Polyneuropathy, unspecified
[2021-10-03] MEDS: LEVOTHYROXINE SODIUM 75 MCG TABLET PO SCH (06:02)
[2021-10-03 08:12] LABS: Hematocrit (blood only) 33.9 % (37-47); Hemoglobin 10.9 g/dL (12.0-16.0); Mean Corpuscular Hemoglobin 27.6 pg (25-34); Mean Corpuscular Hgb Conc 32.2 g/dL (32-36); Mean Corpuscular Volume 85.8 fL (80-100); Mean Platelet Volume 10.6 fL (7.4-10.4); Platelet Count 160 K/uL (130-400); RDW Coefficient of Variation 21.2 % (11.5-14.5); RDW Standard Deviation 67.5 fL (36.4-46.3); Red Blood Count 3.95 M/uL (4.2-5.4); White Blood Count 4.54 K/uL (4.8-10.8)
[2021-10-03] MEDS: PANTOprazole 40 MG TAB PO SCH (08:27)
[2021-10-03] MEDS: BUMETANIDE 1 MG TAB PO SCH (08:27)
[2021-10-03] MEDS: DOCUSATE SODIUM 100 MG CAP PO SCH ×2 (08:28→20:29)
[2021-10-03 08:30] LABS: BUN Creatinine Ratio 30.1 (10-20); Calcium 9.4 mg/dl (8.5-10.1); Creatinine Clr Calc Pharmacy 23.7 ml/min; Est GFR (African American) 35.6 ml/min; Est GFR (Non-African American) 30.7 ml/min; Potassium 3.2 mmol/L (3.5-5.1)
[2021-10-03 08:42] LABS: Acanthocytes 1+; Anisocytosis Present; Basophils # (auto) 0.02 K/uL (0-0.2); Basophils % (auto) 0.4 %; Eosinophils # (auto) 0.41 K/uL (0-0.5); Immature Granulocytes # (auto) 0.02 K/uL (0.00-0.02); Immature Granulocytes % (auto) 0.4 %; Lymphocytes # (auto) 1.02 K/uL (1.2-3.4); Lymphocytes % (auto) 22.5 %; Monocytes # (auto) 0.36 K/uL (0.11-0.59); Monocytes % (auto) 7.9 %; Neutrophils # (auto) 2.71 K/uL (1.4-6.5); Neutrophils % (auto) 59.8 %
[2021-10-03] MEDS ORDERED: POTASSIUM CHLORIDE CRTAB 20 MEQ TABCR PO STA (11:20)
--- NOTE | 2021-10-03 16:49 | Hospitalist Progress Note ---
Date of Service October 03, 2021 Assessment & Plan (1) Bradycardia: Plan: Symptomatic bradycardia from AV mark agents. Was on dopamine for HR and BP. Weaned off on 09/24 in AM. - Holding amiodarone and beta-андрей - Presently HR back to 70 - 90 bpm, now off tele - Increased Synthroid dose as below - Continue to hold metoprolol, amiodarone - Appreciate Cardiology consult - No need to add back meds unless heart rate increases again. -Awaiting placement. Discussion with son stewart previoushospitalist on 09/30 that we will move toward comfort. Will try to minimize any meds that aren't focused on making her feel better. (2) Hypotension: Plan: Symptomatic hypotension secondary to bradycardia. Was on dopamine, but weaned off now. With severe biventricular HF, can expect low BPs. - Continue to hold home metoprolol, amiodarone, Aldactone, but restarted Bumex for JVD and for comfort - BP remains low-normal (3) Biventricular congestive heart failure: Plan: Severe based on ECHO here, LVEF 15%, severe WMAs, Severe RV dysfunction. Hold diuretics and other meds as above due to pt's bradycardia and hypotension. Patient interested in hospice care after discharge as she does not want to keep coming back to the hospital-looking for placement at skilled facility but will need POLST form filled out prior to discharge documenting her wishes to not return to the hospital and pursue comfort measures if worsens again. - Appears euvolemic today. (4) Encephalopathy: Plan: Likely hypoxic-ischemic secondary to prolonged bradycardia and hypotension. CT of head and neck was unremarkable for acute mass/bleed/large vessel stroke. - Patient now awake, alert, oriented x 3 - Appears somewhat confused and irritable. (5) UTI (urinary tract infection): Plan: Ur cx growing Enterococcus faecalis. - Finished Dapto while in the hospital. (6) Acute kidney injury: Plan: Acute on chronic, JIGNA stage 2 based on rise in serum Cr from baseline Cr 1-1.2 to 2.25 on admission. - Secondary to impaired renal perfusion leading to decreased renal function, causing medication buildup/impaired clearance leading to patient's bradycardia. - Cr up to 2.0 on 09/27. - Restarted gentle IV fluids on 09/27 for ~12 hours. Down to 1.9 on 09/28. May need to accept this as new baseline. (7) Hypercalcemia: Plan: Ca 11.3, ionized 1.39 on admission. Vit D level checked and was >120. iPTH appropriately low normal. - Permanently discontinue home Vit D and calcium supplementation (8) Hyponatremia: Plan: Na 129, serum osmolality 303 which is hypertonic but likely due to elevated BUN. Secondary to CHF. - Na+ stable at 134. - Follow periodically (9) Paroxysmal atrial fibrillation: Plan: In sinus rhythm here. - Hold metoprolol and amiodarone due to bradycardia and hypotension. - Not on AC due to h/o epistaxis (10) Hypothyroid: Plan: TSH 12.8. Elevated TSH may be a contributing factor to patient's bradycardia but unlikely to be primary cause. - Increased levothyroxine to 75 mcg (from prior 50 mcg) (11) Hypervitaminosis D: Plan: As above, Vit D > 120 causing hypercalcemia. (12) Anemia: Plan: Mild, hgb 9.8-10, normocytic, likely anemia of chronic disease. - Follow CBC (13) COPD (chronic obstructive pulmonary disease): Plan: No acute issues. Reports no shortness of breath to me today. - Combivent PRN (14) Dyslipidemia: Plan: - Held statin while on Daptomycin - Stopped on 10/01 to move toward comfort. (15) Epistaxis: Plan: Mild, now resolved. - Afrin spray as needed (16) Osteopenia: Plan: Discontinued home calcium and Vit D for high Vit D and calcium levels (17) Peripheral arterial disease: Plan: - Continue ASA (18) Peripheral neuropathy: Plan: Tramadol prn (19) Severe protein-calorie malnutrition: Plan: Severe protein-calorie malnutrition, BMI 13.7 kg/m*m (20) Oral candidiasis: Plan: with throat pain, no fevers started Magic swizzle with nystatin and dexamethasone for Candidiasis and pain--> improving (21) Thrombocytopenia: Plan: plts dropped to the 80s on 10/01, now back to normal--> was likely lab error (22) Chronic pain: Plan: continue tramadol prn-this may be contributing to some occasional hallucinations (23) Hypokalemia: Plan: replace with po KCl Plan: DVT Proph-none for comfort Dispo-awaiting [facility] placement in [place] Admission and Anticipated Discharge Date Admission Date: September 22, 2021 Subjective Pt feels her throat and mouth pain is slightly improved with the magic swizzle. No other concerns, denies headache. Seems tired Review of Systems Review of Systems: All systems reviewed & are unremarkable except as noted in HPI & below Physical Exam Constitutional: + ill appearing, + thin and + cachectic; no acute distress and no altered mental status Eyes: + anicteric sclerae ENMT: Mouth: + oral mucosal abnormality (diffuse erythema,dry MM,small white exudate,improved) Neck: trachea midline, no thyromegaly Respiratory: normal respiratory effort Auscultation: + crackles (bibasilar); no rhonchi and no wheezes Cardiovascular: Rate/Rhythm: regular rate and regular rhythm Heart Sounds: + murmur (3/6 systolic murmur at LLSB) Extremities: no edema Chest (Breasts): Chest: normal inspection of chest Gastrointestinal (Abdomen): normal bowel sounds, soft, nontender, no hepatosplenomegaly Musculoskeletal: Extremities: extremities normal to inspection; no cyanosis and no clubbing Skin: no rashes, warm and dry Neurologic: moves all extremities and awake; no focal motor deficits Psychiatric: Orientation: alert, oriented to person, oriented to place and cooperative Lymphatic: no lymphedema Results & Data Results & Data ([facility]) Vital Signs (Past 12 Hours) Vital Signs Temp Pulse Resp BP BP Pulse Ox 10/03/21 15:06 36.4 C L 87 16 93/70 L 94 10/03/21 07:40 37.6 C H 83 16 131/79 91 10/03/21 04:54 36.6 C 78 16 130/76 90 Laboratory Results 10/03/21 10/03/21 Range/Units 07:56 07:56 WBC 4.54 L (4.8-10.8) K/uL RBC 3.95 L (4.2-5.4) M/uL Hgb 10.9 L (12.0-16.0) g/dL Hct 33.9 L (37-47) % MCV 85.8 (80-100) fL MCH 27.6 (25-34) pg MCHC 32.2 (32-36) g/dL RDW Std Deviation 67.5 H (36.4-46.3) fL RDW Coeff of Janie 21.2 H (11.5-14.5) % Plt Count 160 D (130-400) K/uL MPV 10.6 H (7.4-10.4) fL Immature Gran % (Auto) 0.4 % Neut % (Auto) 59.8 % Lymph % (Auto) 22.5 % [place] % (Auto) 7.9 % Eos % (Auto) 9.0 % Baso % (Auto) 0.4 % Neut # (Auto) 2.71 (1.4-6.5) K/uL Lymph # (Auto) 1.02 L (1.2-3.4) K/uL [place] # (Auto) 0.36 (0.11-0.59) K/uL Eos # (Auto) 0.41 (0-0.5) K/uL Baso # (Auto) 0.02 (0-0.2) K/uL Immature Gran # (Auto) 0.02 (0.00-0.02) K/uL Anisocytosis Present Acanthocytes (Spur) 1+ Sodium 134 L (136-145) mmol/L Potassium 3.2 L (3.5-5.1) mmol/L Chloride 103 (98-107) mmol/L Carbon Dioxide 25 (21-32) mmol/L Anion Gap 6 (3-11) BUN 49 H (6-23) mg/dl Creatinine 1.63 H (0.6-1.2) mg/dl Est Cr Clr Drug Dosing 23.7 ml/min Est GFR ( Amer) 35.6 ml/min Est GFR (Non-Af Amer) 30.7 ml/min BUN/Creatinine Ratio 30.1 H (10-20) Glucose 97 (70-99(Fasting)) mg/dl Calcium 9.4 (8.5-10.1) mg/dl PG Care Time/CCT Total # of Minutes Spent Total Time Spent with Patient: Total time spent is greater than 50% in coordination of care (as documented) at patient's floor/unit and/or counseling patient: Coding Level of Care Code 21949 Subseq Hosp Care Lvl 2 Diagnoses Bradycardia R00.1 Hypotension I95.9 Hypotension type: unspecified hypotension type Biventricular congestive heart failure I50.82 Encephalopathy G93.40 UTI (urinary tract infection) N39.0 Acute kidney injury N17.9 Hypercalcemia E83.52 Hyponatremia E87.1 Paroxysmal atrial fibrillation I48.0 Hypothyroid E03.9 Hypervitaminosis D E67.3 Anemia D64.9 Anemia type: unspecified type COPD (chronic obstructive pulmonary disease) J44.9 Dyslipidemia E78.5 Epistaxis R04.0 Osteopenia M85.80 Peripheral arterial disease I73.9 Peripheral neuropathy G62.9 Peripheral neuropathy type: polyneuropathy, unspecified Severe protein-calorie malnutrition E43 Oral candidiasis B37.0 Thrombocytopenia D69.6 Chronic pain G89.29 Hypokalemia E87.6 (1) Hypotension Hypotension type: unspecified hypotension type Qualified Code(s): I95.9 - Hypotension, unspecified (2) Anemia Anemia type: unspecified type Qualified Code(s): D64.9 - Anemia, unspecified (3) Peripheral neuropathy Peripheral neuropathy type: polyneuropathy, unspecified Qualified Code(s): G62.9 - Polyneuropathy, unspecified
[2021-10-04] MEDS: LEVOTHYROXINE SODIUM 75 MCG TABLET PO SCH (05:46)
[2021-10-04] MEDS: PANTOprazole 40 MG TAB PO SCH (09:04)
[2021-10-04] MEDS: BUMETANIDE 1 MG TAB PO SCH (09:04)
[2021-10-04] MEDS: DOCUSATE SODIUM 100 MG CAP PO SCH ×2 (09:08→19:25)
--- NOTE | 2021-10-04 15:31 | Hospitalist Progress Note ---
Date of Service October 04, 2021 Assessment & Plan (1) Bradycardia: Plan: Symptomatic bradycardia from AV mark agents. Was on dopamine for HR and BP. Weaned off on 09/24 in AM. - Holding amiodarone and beta-андрей - Presently HR back to 70 - 90 bpm, now off tele - Increased Synthroid dose as below - Continue to hold metoprolol, amiodarone - Appreciate Cardiology consult - No need to add back meds unless heart rate increases again. -Awaiting placement. Discussion with son by previous hospitalist on 09/30 that we will move toward comfort. Will try to minimize any meds that aren't focused on making her feel better. (2) Hypotension: Plan: Symptomatic hypotension secondary to bradycardia. Was on dopamine, but weaned off now. With severe biventricular HF, can expect low BPs. - Continue to hold home metoprolol, amiodarone, Aldactone, but restarted Bumex for JVD and for comfort - BP remains low-normal (3) Biventricular congestive heart failure: Plan: Severe based on ECHO here, LVEF 15%, severe WMAs, Severe RV dysfunction. Hold diuretics and other meds as above due to pt's bradycardia and hypotension. With JVD on examination but able to lie flat Patient interested in hospice care after discharge as she does not want to keep coming back to the hospital-looking for placement at skilled facility but will need POLST form filled out prior to discharge documenting her wishes to not return to the hospital and pursue comfort measures if worsens again. (4) Encephalopathy: Plan: Likely hypoxic-ischemic secondary to prolonged bradycardia and hypotension. CT of head and neck was unremarkable for acute mass/bleed/large vessel stroke. Patient awake and alert and answers questions - Appears somewhat confused and irritable at times, lethargic (5) UTI (urinary tract infection): Plan: Ur cx grew Enterococcus faecalis. -Completed a course of Dapto while in the hospital. (6) Acute kidney injury: Plan: Acute on chronic, JIGNA stage 2 based on rise in serum Cr from baseline Cr 1-1.2 to 2.25 on admission. - Secondary to impaired renal perfusion leading to decreased renal function, causing medication buildup/impaired clearance leading to patient's bradycardia. - Cr up to 2.0 on 09/27. - Restarted gentle IV fluids on 09/27 for ~12 hours. Down to 1.9 on 09/28. May need to accept this as new baseline. Most recent labs with creatinine improved to 1.6 (7) Hypercalcemia: Plan: Ca 11.3, ionized 1.39 on admission. Vit D level checked and was >120. iPTH appropriately low normal. - Permanently discontinue home Vit D and calcium supplementation -Last time calcium checked was down to 9.4 (8) Hyponatremia: Plan: Na 129, serum osmolality 303 which is hypertonic but likely due to elevated BUN. Secondary to CHF. - Na+ stable at 134. - Follow periodically (9) Paroxysmal atrial fibrillation: Plan: In sinus rhythm here. - Hold metoprolol and amiodarone due to bradycardia and hypotension. - Not on AC due to h/o epistaxis (10) Hypothyroid: Plan: TSH 12.8. Elevated TSH may be a contributing factor to patient's bradycardia but unlikely to be primary cause. - Increased levothyroxine to 75 mcg (from prior 50 mcg) (11) Hypervitaminosis D: Plan: As above, Vit D > 120 causing hypercalcemia. (12) Anemia: Plan: Mild, hgb 9.8-10, normocytic, likely anemia of chronic disease. - Follow CBC (13) COPD (chronic obstructive pulmonary disease): Plan: No acute issues. Reports no shortness of breath to me today. - Combivent PRN (14) Dyslipidemia: Plan: - Held statin while on Daptomycin - Stopped on 10/01 to move toward comfort. (15) Epistaxis: Plan: Mild, now resolved. - Afrin spray as needed (16) Osteopenia: Plan: Discontinued home calcium and Vit D for high Vit D and calcium levels (17) Peripheral arterial disease: Plan: -Discontinued aspirin and statin is moving towards comfort care (18) Peripheral neuropathy: Plan: Tramadol prn (19) Severe protein-calorie malnutrition: Plan: Severe protein-calorie malnutrition, BMI 13.7 kg/m*m (20) Oral candidiasis: Plan: with throat pain, no fevers started Magic swizzle with nystatin and dexamethasone for Candidiasis and pain--> improving (21) Thrombocytopenia: Plan: plts dropped to the 80s on 10/01, now back to normal--> was likely lab error (22) Chronic pain: Plan: continue tramadol prn-this may be contributing to some occasional hallucinations (23) Hypokalemia: Plan: replace with po KCl when needed Plan: DVT Proph-none for comfort Dispo-awaiting termite control technician placement in [place] Admission and Anticipated Discharge Date Admission Date: September 22, 2021 Subjective Patient very tired today. Reports that her mouth and gums still hurt but the swish and swallow does help. Denies shortness of breath, is lying flat in bed when I saw her. Did not want to eat much today. Had a large amount of loose stool that the nurse thought was suspicious for C. difficile but testing was negative for C. difficile. Review of Systems Review of Systems: All systems reviewed & are unremarkable except as noted in HPI & below Physical Exam Constitutional: + ill appearing, + thin and + cachectic; no acute distress and no altered mental status Eyes: + anicteric sclerae Neck: trachea midline, no thyromegaly Respiratory: normal respiratory effort Cardiovascular: Vessels: + JVD Musculoskeletal: Extremities: extremities normal to inspection; no cyanosis and no clubbing Skin: no rashes, warm and dry Neurologic: moves all extremities and awake; no focal motor deficits Psychiatric: Orientation: alert, oriented to person, oriented to place and digital traffic coordinator perative Lymphatic: no lymphedema Results & Data Results & Data ([facility]) Vital Signs (Past 12 Hours) Vital Signs Temp Pulse Resp BP Pulse Ox 10/04/21 07:58 36.4 C L 75 16 100/70 92 Laboratory Results 10/04/21 Range/Units Unknown Stl C. diff Tox B Gene Negative Cdiff Gene (Neg) PG Care Time/CCT Total # of Minutes Spent Total Time Spent with Patient: Total time spent is greater than 50% in coordination of care (as documented) at patient's floor/unit and/or counseling patient: Coding Level of Care Code 11797 Subseq Hosp Care Lvl 1 Diagnoses Bradycardia R00.1 Hypotension I95.9 Hypotension type: unspecified hypotension type Biventricular congestive heart failure I50.82 Encephalopathy G93.40 UTI (urinary tract infection) N39.0 Acute kidney injury N17.9 Hypercalcemia E83.52 Hyponatremia E87.1 Paroxysmal atrial fibrillation I48.0 Hypothyroid E03.9 Hypervitaminosis D E67.3 Anemia D64.9 Anemia type: unspecified type COPD (chronic obstructive pulmonary disease) J44.9 Dyslipidemia E78.5 Epistaxis R04.0 Osteopenia M85.80 Peripheral arterial disease I73.9 Peripheral neuropathy G62.9 Peripheral neuropathy type: polyneuropathy, unspecified Severe protein-calorie malnutrition E43 Oral candidiasis B37.0 Thrombocytopenia D69.6 Chronic pain G89.29 Hypokalemia E87.6 (1) Anemia Anemia type: unspecified type Qualified Code(s): D64.9 - Anemia, unspecified (2) Peripheral neuropathy Peripheral neuropathy type: polyneuropathy, unspecified Qualified Code(s): G62.9 - Polyneuropathy, unspecified (3) Hypotension Hypotension type: unspecified hypotension type Qualified Code(s): I95.9 - Hypotension, unspecified
[2021-10-05] MEDS: LEVOTHYROXINE SODIUM 75 MCG TABLET PO SCH (05:14)
[2021-10-05] MEDS: BUMETANIDE 1 MG TAB PO SCH (08:24)
[2021-10-05] MEDS: PANTOprazole 40 MG TAB PO SCH (08:24)
[2021-10-05] MEDS: DOCUSATE SODIUM 100 MG CAP PO SCH ×2 (08:27→20:17)
[2021-10-05] MEDS: traMADol HCL 50 MG TABLET PO PRN (11:10)
--- NOTE | 2021-10-05 15:08 | Hospitalist Progress Note ---
Date of Service October 05, 2021 Assessment & Plan (1) Bradycardia: Plan: Symptomatic bradycardia from AV mark agents. Initially was profoundly bradycardic and hypotensive on arrival Admitted to the ICU and was on dopamine for HR and BP. Weaned off on 09/24 in AM. Normal heart rates and blood pressure since that time -Continue holding amiodarone and beta-андрей - Presently HR back to 70 - 90 bpm, now off tele - Increased Synthroid dose as below - Continue to hold metoprolol, amiodarone - Appreciate Cardiology consult - No need to add back meds unless heart rate increases again. -Awaiting placement. Discussion with son by previous hospitalist on 09/30 that w e will move toward comfort. Will try to minimize any meds that aren't focused on making her feel better. (2) Hypotension: Plan: Symptomatic hypotension secondary to bradycardia. Was on dopamine, but weaned off now. With severe biventricular HF, can expect low BPs. - Continue to hold home metoprolol, amiodarone, Aldactone, but restarted Bumex for JVD and for comfort - BP remains low-normal (3) Biventricular congestive heart failure: Plan: Severe based on ECHO here, LVEF 15%, severe WMAs, Severe RV dysfunction. Hold diuretics and other meds as above due to pt's bradycardia and hypotension. With JVD on examination but able to lie flat Patient interested in hospice care after discharge as she does not want to keep coming back to the hospital-looking for placement at skilled facility but will need POLST form filled [facility] facility documenting her wishes to not return to the hospital and pursue comfort measures if worsens again. (4) Encephalopathy: Plan: Likely hypoxic-ischemic secondary to prolonged bradycardia and hypotension. CT of head and neck was unremarkable for acute mass/bleed/large vessel stroke. Patient awake and alert and answers questions - Appears somewhat confused and irritable at times, lethargic -Also has occasional visual hallucinations as per report from nursing staff and her son-these may be due to tramadol use versus hospital delirium but are not overly concerning and not distressful to the patient (5) UTI (urinary tract infection): Plan: Ur cx grew Enterococcus faecalis. -Completed a course of Dapto while in the hospital. (6) Acute kidney injury: Plan: Acute on chronic, JIGNA stage 2 based on rise in serum Cr from baseline Cr 1-1.2 to 2.25 on admission. - Secondary to impaired renal perfusion leading to decreased renal function, causing medication buildup/impaired clearance leading to patient's bradycardia. - Cr up to 2.0 on 09/27. - Restarted gentle IV fluids on 09/27 for ~12 hours. Down to 1.9 on 09/28. May need to accept this as new baseline. Most recent labs with creatinine improved to 1.6 (7) Hypercalcemia: Plan: Ca 11.3, ionized 1.39 on admission. Vit D level checked and was >120. iPTH appropriately low normal. - Permanently discontinue home Vit D and calcium supplementation -Last time calcium checked was down to 9.4 (8) Hyponatremia: Plan: Na 129, serum osmolality 303 which is hypertonic but likely due to elevated BUN. Secondary to CHF. - Na+ stable at 134. - Follow periodically (9) Paroxysmal atrial fibrillation: Plan: In sinus rhythm here. - Hold metoprolol and amiodarone due to bradycardia and hypotension. - Not on AC due to h/o epistaxis (10) Hypothyroid: Plan: TSH 12.8. Elevated TSH may be a contributing factor to patient's bradycardia but unlikely to be primary cause. - Increased levothyroxine to 75 mcg (from prior 50 mcg) -Follow thyroid function tests in 4 weeks (11) Hypervitaminosis D: Plan: As above, Vit D > 120 causing hypercalcemia. Discontinued vitamin D and calcium supplement (12) Anemia: Plan: Mild, hgb 9.8-10, normocytic, likely anemia of chronic disease. - Follow CBC (13) COPD (chronic obstructive pulmonary disease): Plan: No acute issues. Reports no shortness of breath to me today. - Combivent PRN (14) Dyslipidemia: Plan: - Held statin while on Daptomycin - Stopped on 10/01 to move toward comfort. (15) Epistaxis: Plan: Mild, now resolved. - Afrin spray as needed (16) Osteopenia: Plan: Discontinued home calcium and Vit D for high Vit D and calcium levels (17) Peripheral arterial disease: Plan: -Discontinued aspirin and statin is moving towards comfort care (18) Peripheral neuropathy: Plan: Tramadol prn (19) Severe protein-calorie malnutrition: Plan: Severe protein-calorie malnutrition, BMI 13.7 kg/m*m (20) Oral candidiasis: Plan: with throat pain, no fevers started Magic swizzle with nystatin and dexamethasone for Candidiasis and pain--> continues to improve (21) Thrombocytopenia: Plan: plts dropped to the 80s on 10/01, now back to normal--> was likely lab error (22) Chronic pain: Plan: continue tramadol prn-this may be contributing to some occasional hallucinations (23) Hypokalemia: Plan: replace with po KCl when needed Plan: DVT Proph-none for comfort Dispo-awaiting correction placement in [place], it appears that perhaps she may be accepted in the near future at [facility]-await acceptance and will discharge DNR/DNI Discussed care with son on 10/04 Admission and Anticipated Discharge Date Admission Date: September 22, 2021 Subjective Patient reports feeling less tired today, not eating much. Mouth and gums are less painful and feeling better. Denies shortness of breath. No other concerns. Review of Systems Review of Systems: All systems reviewed & are unremarkable except as noted in HPI & below Having some pain in her back Physical Exam Constitutional: + ill appearing, + thin and + cachectic; no acute distress and no altered mental status Eyes: + anicteric sclerae ENMT: external ear and nose normal, oropharynx normal Mouth: + oral mucosal abnormality (diffuse erythema but improved from previous, no exudate, moist) Neck: trachea midline, no thyromegaly Respiratory: normal respiratory effort Auscultation: + crackles (bibasilar); no rhonchi and no wheezes Cardiovascular: Rate/Rhythm: regular rate and regular rhythm Heart Sounds: + murmur (3/6 systolic murmur at LLSB) Vessels: + JVD Extremities: no edema Chest (Breasts): Chest: normal inspection of chest Gastrointestinal (Abdomen): normal bowel sounds, soft, nontender, no hepatosplenomegaly Musculoskeletal: Extremities: extremities normal to inspection; no cyanosis and no clubbing Skin: no rashes, warm and dry Neurologic: moves all extremities and awake; no focal motor deficits Psychiatric: Orientation: alert, oriented to person, oriented to place and cooperative Lymphatic: no lymphedema Results & Data Results & Data ([facility]) Vital Signs (Past 12 Hours) Vital Signs Temp Pulse Resp BP Pulse Ox 10/05/21 14:43 36.3 C L 72 18 105/72 96 01/25/22 11:16 36.1 C L 77 16 95/68 L 99 10/05/21 07:04 36.4 C L 88 18 94/64 L 96 PG Care Time/CCT Total # of Minutes Spent Total Time Spent with Patient: Total time spent is greater than 50% in coordination of care (as documented) at patient's floor/unit and/or counseling patient: Coding Level of Care Code 63854 Subseq Hosp Care Lvl 1 Diagnoses Bradycardia R00.1 Hypotension I95.9 Hypotension type: unspecified hypotension type Biventricular congestive heart failure I50.82 Encephalopathy G93.40 UTI (urinary tract infection) N39.0 Acute kidney injury N17.9 Hypercalcemia E83.52 Hyponatremia E87.1 Paroxysmal atrial fibrillation I48.0 Hypothyroid E03.9 Hypervitaminosis D E67.3 Anemia D64.9 Anemia type: unspecified type COPD (chronic obstructive pulmonary disease) J44.9 Dyslipidemia E78.5 Epistaxis R04.0 Osteopenia M85.80 Peripheral arterial disease I73.9 Peripheral neuropathy G62.9 Peripheral neuropathy type: polyneuropathy, unspecified Severe protein-calorie malnutrition E43 Oral candidiasis B37.0 Thrombocytopenia D69.6 Chronic pain G89.29 Hypokalemia E87.6 (1) Hypotension Hypotension type: unspecified hypotension type Qualified Code(s): I95.9 - Hypotension, unspecified (2) Anemia Anemia type: unspecified type Qualified Code(s): D64.9 - Anemia, unspecified (3) Peripheral neuropathy Peripheral neuropathy type: polyneuropathy, unspecified Qualified Code(s): G62.9 - Polyneuropathy, unspecified
[2021-10-06] MEDS: LEVOTHYROXINE SODIUM 75 MCG TABLET PO SCH (05:34)
[2021-10-06] MEDS: PANTOprazole 40 MG TAB PO SCH (09:06)
[2021-10-06] MEDS: BUMETANIDE 1 MG TAB PO SCH (09:06)
[2021-10-06] MEDS: DOCUSATE SODIUM 100 MG CAP PO SCH ×2 (09:06→21:17)
--- NOTE | 2021-10-06 15:14 | Hospitalist Progress Note ---
Date of Service October 06, 2021 Assessment & Plan (1) Bradycardia: Plan: Symptomatic bradycardia from AV mark agents. Initially was profoundly bradycardic and hypotensive on arrival Admitted to the ICU and was on dopamine for HR and BP. Weaned off on 09/24 in AM. Normal heart rates and blood pressure since that time -Continue holding amiodarone and beta-андрей - Presently HR back to 70 - 90 bpm, now off tele - Increased Synthroid dose as below - Continue to hold metoprolol, amiodarone - Appreciate Cardiology consult - No need to add back meds unless heart rate increases again. -Awaiting placement. Discussion with son by previous hospitalist on 09/30 that w e will move toward comfort. Will try to minimize any meds that aren't focused on making her feel better. (2) Hypotension: Plan: Symptomatic hypotension secondary to bradycardia. Was on dopamine, but weaned off now. With severe biventricular HF, can expect low BPs. - Continue to hold home metoprolol, amiodarone, Aldactone, but restarted Bumex for JVD and for comfort - BP remains low-normal (3) Biventricular congestive heart failure: Plan: Severe based on ECHO here, LVEF 15%, severe WMAs, Severe RV dysfunction. Hold diuretics and other meds as above due to pt's bradycardia and hypotension. With JVD on examination but able to lie flat Patient interested in hospice care after discharge as she does not want to keep coming back to the hospital-looking for placement at skilled facility but will need POLST form filled out once at [facility] documenting her wishes to not return to the hospital and pursue comfort measures if worsens again. (4) Encephalopathy: Plan: Likely hypoxic-ischemic secondary to prolonged bradycardia and hypotension. CT of head and neck was unremarkable for acute mass/bleed/large vessel stroke. Patient awake and alert and answers questions - Appears somewhat confused and irritable at times, lethargic -Also has occasional visual hallucinations as per report from nursing staff and her son-these may be due to tramadol use versus hospital delirium but are not overly concerning and not distressful to the patient (5) UTI (urinary tract infection): Plan: Ur cx grew Enterococcus faecalis. -Completed a course of Dapto while in the hospital. (6) Acute kidney injury: Plan: Acute on chronic, JIGNA stage 2 based on rise in serum Cr from baseline Cr 1-1.2 to 2.25 on admission. - Secondary to impaired renal perfusion leading to decreased renal function, causing medication buildup/impaired clearance leading to patient's bradycardia. - Cr up to 2.0 on 09/27. - Restarted gentle IV fluids on 09/27 for ~12 hours. Down to 1.9 on 09/28. May need to accept this as new baseline. Most recent labs with creatinine improved to 1.6 (7) Hypercalcemia: Plan: Ca 11.3, ionized 1.39 on admission. Vit D level checked and was >120. iPTH appropriately low normal. - Permanently discontinue home Vit D and calcium supplementation -Last time calcium checked was down to 9.4 (8) Hyponatremia: Plan: Na 129, serum osmolality 303 which is hypertonic but likely due to elevated BUN. Secondary to CHF. - Na+ stable at 134. - Follow periodically (9) Paroxysmal atrial fibrillation: Plan: In sinus rhythm here. - Hold metoprolol and amiodarone due to bradycardia and hypotension. - Not on AC due to h/o epistaxis (10) Hypothyroid: Plan: TSH 12.8. Elevated TSH may be a contributing factor to patient's bradycardia but unlikely to be primary cause. - Increased levothyroxine to 75 mcg (from prior 50 mcg) -Follow thyroid function tests in 4 weeks (11) Hypervitaminosis D: Plan: As above, Vit D > 120 causing hypercalcemia. Discontinued vitamin D and calcium supplement (12) Anemia: Plan: Mild, hgb 9.8-10, normocytic, likely anemia of chronic disease. - Follow CBC (13) COPD (chronic obstructive pulmonary disease): Plan: No acute issues. Reports no shortness of breath to me today. - Combivent PRN (14) Dyslipidemia: Plan: - Held statin while on Daptomycin - Stopped on 10/01 to move toward comfort. (15) Epistaxis: Plan: Mild, now resolved. - Afrin spray as needed (16) Osteopenia: Plan: Discontinued home calcium and Vit D for high Vit D and calcium levels (17) Peripheral arterial disease: Plan: -Discontinued aspirin and statin is moving towards comfort care (18) Peripheral neuropathy: Plan: Tramadol prn (19) Severe protein-calorie malnutrition: Plan: Severe protein-calorie malnutrition, BMI 13.7 kg/m*m (20) Oral candidiasis: Plan: with throat pain, no fevers started Magic swizzle with nystatin and dexamethasone for Candidiasis and pain--> continues to improve (21) Thrombocytopenia: Plan: plts dropped to the 80s on 10/01, now back to normal--> was likely lab error (22) Chronic pain: Plan: continue tramadol prn-this may be contributing to some occasional hallucinations (23) Hypokalemia: Plan: replace with po KCl when needed Plan: DVT Proph-none for comfort Dispo-awaiting placemtn at [facility]-plan for dc tomorrow to [facility] DNR/DNI Discussed care with son on 10/04 Admission and Anticipated Discharge Date Admission Date: September 22, 2021 Subjective Patient has no complaints. She did eat a little bit for breakfast. Her mouth pain is much better. Denies shortness of breath or chest pain. When asked if she needed anything, she stated "Yeah, my mom." Review of Systems Review of Systems: All systems reviewed & are unremarkable except as noted in HPI & below Physical Exam Constitutional: + ill appearing, + thin and + cachectic; no acute distress and no altered mental status Eyes: + anicteric sclerae Neck: trachea midline, no thyromegaly Respiratory: normal respiratory effort Auscultation: + crackles (bibasilar); no rhonchi and no wheezes Cardiovascular: Rate/Rhythm: regular rate and regular rhythm Heart Sounds: + murmur (3/6 systolic murmur at LLSB) Vessels: + JVD Extremities: no edema Chest (Breasts): Chest: normal inspection of chest Gastrointestinal (Abdomen): normal bowel sounds, soft, nontender, no hepatosplenomegaly Musculoskeletal: Extremities: extremities normal to inspection; no cyanosis and no clubbing Skin: no rashes, warm and dry Neurologic: moves all extremities and awake; no focal motor deficits Psychiatric: Orientation: alert, oriented to person, oriented to place and cooperative Lymphatic: no lymphedema Results & Data Results & Data ([facility]) Vital Signs (Past 12 Hours) Vital Signs Temp Pulse Resp BP Pulse Ox 10/06/21 07:13 36.6 C 78 16 139/81 97 PG Care Time/CCT Total # of Minutes Spent Total Time Spent with Patient: Total time spent is greater than 50% in coordination of care (as documented) at patient's floor/unit and/or counseling patient: Coding Level of Care Code 91098 Subseq Hosp Care Lvl 1 Diagnoses Bradycardia R00.1 Hypotension I95.9 Hypotension type: unspecified hypotension type Biventricular congestive heart failure I50.82 Encephalopathy G93.40 UTI (urinary tract infection) N39.0 Acute kidney injury N17.9 Hypercalcemia E83.52 Hyponatremia E87.1 Paroxysmal atrial fibrillation I48.0 Hypothyroid E03.9 Hypervitaminosis D E67.3 Anemia D64.9 Anemia type: unspecified type COPD (chronic obstructive pulmonary disease) J44.9 Dyslipidemia E78.5 Epistaxis R04.0 Osteopenia M85.80 Peripheral arterial disease I73.9 Peripheral neuropathy G62.9 Peripheral neuropathy type: polyneuropathy, unspecified Severe protein-calorie malnutrition E43 Oral candidiasis B37.0 Thrombocytopenia D69.6 Chronic pain G89.29 Hypokalemia E87.6 (1) Hypotension Hypotension type: unspecified hypotension type Qualified Code(s): I95.9 - Hypotension, unspecified (2) Anemia Anemia type: unspecified type Qualified Code(s): D64.9 - Anemia, unspecified (3) Peripheral neuropathy Peripheral neuropathy type: polyneuropathy, unspecified Qualified Code(s): G62.9 - Polyneuropathy, unspecified
[2021-10-07] MEDS: LEVOTHYROXINE SODIUM 75 MCG TABLET PO SCH (05:41)
[2021-10-07 06:58] LABS: Basophils # (auto) 0.04 K/uL (0-0.2); Basophils % (auto) 0.7 %; Eosinophils # (auto) 0.24 K/uL (0-0.5); Eosinophils % (auto) 4.2 %; Hematocrit (blood only) 41.4 % (37-47); Hemoglobin 13.2 g/dL (12.0-16.0); Immature Granulocytes # (auto) 0.01 K/uL (0.00-0.02); Immature Granulocytes % (auto) 0.2 %; Lymphocytes # (auto) 1.51 K/uL (1.2-3.4); Lymphocytes % (auto) 26.4 %; Mean Corpuscular Hemoglobin 27.1 pg (25-34); Mean Corpuscular Hgb Conc 31.9 g/dL (32-36); Mean Platelet Volume 10.5 fL (7.4-10.4); Monocytes # (auto) 0.54 K/uL (0.11-0.59); Monocytes % (auto) 9.4 %; Neutrophils # (auto) 3.38 K/uL (1.4-6.5); Neutrophils % (auto) 59.1 %; Platelet Count 239 K/uL (130-400); RDW Coefficient of Variation 20.4 % (11.5-14.5); RDW Standard Deviation 63.9 fL (36.4-46.3); Red Blood Count 4.87 M/uL (4.2-5.4); White Blood Count 5.72 K/uL (4.8-10.8)
[2021-10-07 07:23] LABS: BUN Creatinine Ratio 48.7 (10-20); Calcium 9.2 mg/dl (8.5-10.1); Creatinine Clr Calc Pharmacy 34.1 ml/min; Est GFR (African American) 55.4 ml/min; Est GFR (Non-African American) 47.8 ml/min
[2021-10-07 07:24] LABS: Anisocytosis Present; Echinocytes 1+
[2021-10-07] MEDS: DOCUSATE SODIUM 100 MG CAP PO SCH ×2 (08:08→20:29)
[2021-10-07] MEDS: PANTOprazole 40 MG TAB PO SCH (08:09)
[2021-10-07] MEDS: BUMETANIDE 1 MG TAB PO SCH (08:09)
[2021-10-07 10:23] LABS: Influenza A virus by PCR Negative (Neg); Influenza B virus by PCR Negative (Neg); RSV by PCR Negative (Neg)
[2021-10-07 10:40] LABS: SARS CoV2 RNA(COVID-19) InHosp POSITIVE (Negative)
[2021-10-07] MEDS ORDERED: POTASSIUM CHLORIDE CRTAB 20 MEQ TABCR PO STA (11:06)
--- NOTE | 2021-10-07 12:23 | Hospitalist Progress Note ---
Date of Service October 07, 2021 Assessment & Plan (1) Bradycardia: Plan: Symptomatic bradycardia from AV mark agents. Initially was profoundly bradycardic and hypotensive on arrival Admitted to the ICU and was on dopamine for HR and BP. Weaned off on 09/24 in AM. Normal heart rates and blood pressure since that time -Continue holding amiodarone and beta-андрей - Presently HR back to 70 - 90 bpm, now off tele - Increased Synthroid dose as below - Continue to hold metoprolol, amiodarone - Appreciate Cardiology consult - No need to add back meds unless heart rate increases again. -Awaiting placement. Discussion with son by previous hospitalist on 09/30 that w e will move toward comfort. Will try to minimize any meds that aren't focused on making her feel better. (2) Hypotension: Plan: Symptomatic hypotension secondary to bradycardia. Was on dopamine, but weaned off now. With severe biventricular HF, can expect low BPs. - Continue to hold home metoprolol, amiodarone, Aldactone, but restarted Bumex for JVD and for comfort - BP remains low-normal (3) Biventricular congestive heart failure: Plan: Severe based on ECHO here, LVEF 15%, severe WMAs, Severe RV dysfunction. Hold diuretics and other meds as above due to pt's bradycardia and hypotension. With JVD on examination but able to lie flat Patient interested in hospice care after discharge as she does not want to keep coming back to the hospital-looking for placement at skilled facility but will need [facility] documenting her wishes to not return to the hospital and pursue comfort measures if worsens again. (4) Encephalopathy: Plan: Likely hypoxic-ischemic secondary to prolonged bradycardia and hypotension. CT of head and neck was unremarkable for acute mass/bleed/large vessel stroke. Patient awake and alert and answers questions - Appears somewhat confused and irritable at times, lethargic -Also has occasional visual hallucinations as per report from nursing staff and her son-these may be due to tramadol use versus hospital delirium but are not overly concerning and not distressful to the patient (5) UTI (urinary tract infection): Plan: Ur cx grew Enterococcus faecalis. -Completed a course of Dapto while in the hospital. (6) Acute kidney injury: Plan: Acute on chronic, JIGNA stage 2 based on rise in serum Cr from baseline Cr 1-1.2 to 2.25 on admission. - Secondary to impaired renal perfusion leading to decreased renal function, causing medication buildup/impaired clearance leading to patient's bradycardia. - Cr up to 2.0 on 09/27. - gave gentle IV fluids on 09/27 for ~12 hours Most recent labs with creatinine improved to 1.13 (7) Hypercalcemia: Plan: Ca 11.3, ionized 1.39 on admission. Vit D level checked and was >120. iPTH appropriately low normal. - Permanently discontinue home Vit D and calcium supplementation -calcium now normal (8) Hyponatremia: Plan: Na 129, serum osmolality 303 which is hypertonic but likely due to elevated BUN. Secondary to CHF. - Na+now normal - Follow periodically (9) Paroxysmal atrial fibrillation: Plan: In sinus rhythm here. - continue to hold metoprolol and amiodarone due to previous bradycardia and hypotension. - Not on AC due to h/o epistaxis (10) Hypothyroid: Plan: TSH 12.8. Elevated TSH may be a contributing factor to patient's bradycardia but unlikely to be primary cause. - Increased levothyroxine to 75 mcg (from prior 50 mcg) -Follow thyroid function tests in 4 weeks (11) Hypervitaminosis D: Plan: As above, Vit D > 120 causing hypercalcemia. Discontinued vitamin D and calcium supplement (12) Anemia: Plan: Mild, hgb 9.8-10, normocytic, likely anemia of chronic disease. - Follow CBC (13) COPD (chronic obstructive pulmonary disease): Plan: No acute issues. Reports no shortness of breath - Combivent PRN (14) Dyslipidemia: Plan: - Held statin while on Daptomycin - Stopped on 10/01 to move toward comfort. (15) Epistaxis: Plan: Mild, now resolved. - Afrin spray as needed (16) Osteopenia: Plan: Discontinued home calcium and Vit D for high Vit D and calcium levels (17) Peripheral arterial disease: Plan: -Discontinued aspirin and statin is moving towards comfort care (18) Peripheral neuropathy: Plan: Tramadol prn (19) Severe protein-calorie malnutrition: Plan: Severe protein-calorie malnutrition, BMI 13.7 kg/m*m (20) Oral candidiasis: Plan: with throat pain, no fevers started Magic swizzle with nystatin and dexamethasone for Candidiasis and pain--> continues to improve Now known to be positive for COVID-19 so could very well be 2/2 COVID (21) Thrombocytopenia: Plan: plts dropped to the 80s on 10/01, now back to normal by the next day--> was likely lab error (22) Chronic pain: Plan: continue tramadol prn-this may be contributing to some occasional hallucinations (23) Hypokalemia: Plan: replace with po KCl when needed-give KCL 40 meq po x 1 today follow BMP (24) COVID-19: Plan: tested positive on 10/06 on routine screening for discharge to SNF Repeat Cephied PCR test on 10/07 also positive No fevers, no hypoxia, no cough or SOB. Did have a sore throat just prior to testing positive which could be a sign Had a loose stool once -POx 97% on room air--> no indication for Remdesevir or Dexamethasone at this time continue to observe for worsening SNF still planning on accepting her tomorrow in COVID wing/isolation moved to isolation here on 10/06 Plan: DVT Proph-none for comfort Dispo-awaiting placement at SNF-plan for dc tomorrow to [facility] DNR/DNI Discussed care with son on 10/04 and 10/06 Admission and Anticipated Discharge Date Admission Date: September 22, 2021 Subjective Tested positive for COVID last evening. I was informed and notified her son by phone. She reports her sore throat is now resolved, denies SOB, cough, chest pain, and pain, or diarrhea. APpetite low but it has been throughout her hospitalization. She understands now that she has COVID she cannot have her son visit Review of Systems Review of Systems: All systems reviewed & are unremarkable except as noted in HPI & below Physical Exam Constitutional: + ill appearing, + thin and + cachectic; no acute distress and no altered mental status Eyes: PERRL, conjunctivae normal, anicteric sclerae + anicteric sclerae ENMT: external ear and nose normal, oropharynx normal Neck: trachea midline, no thyromegaly Respiratory: normal respiratory effort Auscultation: + crackles ( bibasilar); no rhonchi and no wheezes Cardiovascular: Rate/Rhythm: regular rate and regular rhythm Heart Sounds: + murmur (3/6 systolic murmur at LLSB) Vessels: + JVD Extremities: no edema Chest (Breasts): Chest: normal inspection of chest Gastrointestinal (Abdomen): normal bowel sounds, soft, nontender, no hepatosplenomegaly Musculoskeletal: Extremities: extremities normal to inspection; no cyanosis and no clubbing Skin: no rashes, warm and dry Neurologic: moves all extremities and awake; no focal motor deficits Psychiatric: Orientation: alert, oriented to person, oriented to place and cooperative Lymphatic: no lymphedema Results & Data Results & Data ([facility]) Vital Signs (Past 12 Hours) Vital Signs Temp Pulse Resp BP Pulse Ox 10/07/21 08:01 36.4 C L 72 16 135/72 97 Laboratory Results 10/07/21 10/07/21 10/07/21 Range/Units 09:36 08:13 07:47 WBC (4.8-10.8) K/uL RBC (4.2-5.4) M/uL Hgb (12.0-16.0) g/dL Hct (37-47) % MCV (80-100) fL MCH (25-34) pg MCHC (32-36) g/dL RDW Std Deviation (36.4-46.3) fL RDW Coeff of Janie (11.5-14.5) % Plt Count (130-400) K/uL MPV (7.4-10.4) fL Immature Gran % (Auto) % Neut % (Auto) % Lymph % (Auto) % [place] % (Auto) % Eos % (Auto) % Baso % (Auto) % Neut # (Auto) (1.4-6.5) K/uL Lymph # (Auto) (1.2-3.4) K/uL [place] # (Auto) (0.11-0.59) K/uL Eos # (Auto) (0-0.5) K/uL Baso # (Auto) (0-0.2) K/uL Immature Gran # (Auto) (0.00-0.02) K/uL Anisocytosis Echinocytes Sodium (136-145) mmol/L Potassium 3.0 L (3.5-5.1) mmol/L Chloride (98-107) mmol/L Carbon Dioxide (21-32) mmol/L Anion Gap (3-11) BUN (6-23) mg/dl Creatinine (0.6-1.2) mg/dl Est Cr Clr Drug Dosing ml/min Est GFR ( Amer) ml/min Est GFR (Non-Af Amer) ml/min BUN/Creatinine Ratio (10-20) Glucose (70-99(Fasting)) mg/dl Calcium (8.5-10.1) mg/dl SARS-CoV-2 (PCR) POSITIVE A* (Negative) Influenza Type A (PCR) Negative (Neg) Influenza Type B (PCR) Negative (Neg) RSV (RT-PCR) Negative (Neg) SARS-CoV-2 RNA (GRACIELA) Pending SARS-CoV-2, RNA, NAAT (NEGATIVE) 10/07/21 10/07/21 10/06/21 Range/Units 06:28 06:28 17:45 WBC 5.72 (4.8-10.8) K/uL RBC 4.87 (4.2-5.4) M/uL Hgb 13.2 (12.0-16.0) g/dL Hct 41.4 (37-47) % MCV 85.0 (80-100) fL MCH 27.1 (25-34) pg MCHC 31.9 L (32-36) g/dL RDW Std Deviation 63.9 H (36.4-46.3) fL RDW Coeff of Janie 20.4 H (11.5-14.5) % Plt Count 239 (130-400) K/uL MPV 10.5 H (7.4-10.4) fL Immature Gran % (Auto) 0.2 % Neut % (Auto) 59.1 % Lymph % (Auto) 26.4 % [place] % (Auto) 9.4 % Eos % (Auto) 4.2 % Baso % (Auto) 0.7 % Neut # (Auto) 3.38 (1.4-6.5) K/uL Lymph # (Auto) 1.51 (1.2-3.4) K/uL [place] # (Auto) 0.54 (0.11-0.59) K/uL Eos # (Auto) 0.24 (0-0.5) K/uL Baso # (Auto) 0.04 (0-0.2) K/uL Immature Gran # (Auto) 0.01 (0.00-0.02) K/uL Anisocytosis Present Echinocytes 1+ Sodium 137 (136-145) mmol/L Potassium (3.5-5.1) mmol/L Chloride 99 (98-107) mmol/L Carbon Dioxide 28 (21-32) mmol/L Anion Gap 10 (3-11) BUN 55 H (6-23) mg/dl Creatinine 1.13 (0.6-1.2) mg/dl Est Cr Clr Drug Dosing 34.1 ml/min Est GFR ( Amer) 55.4 ml/min Est GFR (Non-Af Amer) 47.8 ml/min BUN/Creatinine Ratio 48.7 H (10-20) Glucose 79 (70-99(Fasting)) mg/dl Calcium 9.2 (8.5-10.1) mg/dl SARS-CoV-2 (PCR) (Negative) Influenza Type A (PCR) (Neg) Influenza Type B (PCR) (Neg) RSV (RT-PCR) (Neg) SARS-CoV-2 RNA (GRACIELA) SARS-CoV-2, RNA, NAAT POSITIVE A* (NEGATIVE) PG Care Time/CCT Total # of Minutes Spent Total Time Spent with Patient: Total time spent is greater than 50% in coordination of care (as documented) at patient's floor/unit and/or counseling patient: Coding Level of Care Code 57549 Subseq Hosp Care Lvl 2 Diagnoses Bradycardia R00.1 Hypotension I95.9 Hypotension type: unspecified hypotension type Biventricular congestive heart failure I50.82 Encephalopathy G93.40 UTI (urinary tract infection) N39.0 Acute kidney injury N17.9 Hypercalcemia E83.52 Hyponatremia E87.1 Paroxysmal atrial fibrillation I48.0 Hypothyroid E03.9 Hypervitaminosis D E67.3 Anemia D64.9 Anemia type: unspecified type COPD (chronic obstructive pulmonary disease) J44.9 Dyslipidemia E78.5 Epistaxis R04.0 Osteopenia M85.80 Peripheral arterial disease I73.9 Peripheral neuropathy G62.9 Peripheral neuropathy type: polyneuropathy, unspecified Severe protein-calorie malnutrition E43 Oral candidiasis B37.0 Thrombocytopenia D69.6 Chronic pain G89.29 Hypokalemia E87.6 COVID-19 U07.1 (1) Hypotension Hypotension type: unspecified hypotension type Qualified Code(s): I95.9 - Hypotension, unspecified (2) Anemia Anemia type: unspecified type Qualified Code(s): D64.9 - Anemia, unspecified (3) Peripheral neuropathy Peripheral neuropathy type: polyneuropathy, unspecified Qualified Code(s): G62.9 - Polyneuropathy, unspecified
[2021-10-07] MEDS: POTASSIUM CHLORIDE CRTAB 20 MEQ TABCR PO SCH (20:29)
[2021-10-08] MEDS: LEVOTHYROXINE SODIUM 75 MCG TABLET PO SCH (05:27)
[2021-10-08 06:54] LABS: BUN Creatinine Ratio 50.9 (10-20); Calcium 9.7 mg/dl (8.5-10.1); Creatinine Clr Calc Pharmacy 34.4 ml/min; Est GFR (Non-African American) 48.4 ml/min; Potassium 3.6 mmol/L (3.5-5.1)
[2021-10-08] MEDS ORDERED: POTASSIUM CHLORIDE CRTAB 20 MEQ TABCR PO STA (07:23)
[2021-10-08] MEDS: POTASSIUM CHLORIDE CRTAB 20 MEQ TABCR PO SCH (08:05)
[2021-10-08] MEDS: DOCUSATE SODIUM 100 MG CAP PO SCH (08:05)
[2021-10-08] MEDS: BUMETANIDE 1 MG TAB PO SCH (08:05)
[2021-10-08] MEDS: PANTOprazole 40 MG TAB PO SCH (08:06)
--- NOTE | 2021-10-08 11:07 | Discharge Summary ---
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 Etiology of fall is unknown as ihstory is limited due to patient's current state. Patient was reportedly confused and somnolent on upon initial evaluation in ED and vitals were significant for SBP in 70s, HR in the 40s. Was temporarily stabilized with atropine, was sent to CT scan for imaging of head and neck which was unremarkable for acute mass/bleed /large vessel stroke. No cervical fracture noted on c-spine CT. She remained bradycardic into the 40s with SBP in 70s. Hospitalist team was consulted at this time, who recommended treating pt's bradycardia with dopamine or epinephrine and attempting reversal of beta андрей with half-dose glucagon. Dopamine was initially given 5 mcg/kg, then increased to 7 mcg/kg/min. VS were stabilized, HR increased to 70s and SBP 90s. Patient will be admitted to PCU/telemetry on fixed dose dopamine with an attempt to wean off and identify underlying cause of bradycardia. If underlying cause is reversible, i.e medication induced/toxin induced then this should be short lived vasopressor support. If this is worsening of underlying heart failure or worse, then we will initiate palliation. Zackery Tyler [employer] with hospitalist team called patient's son and discussed the patient's current condition, as well as likely causes, potential treatments, as well as short and ferry terminal agent outcomes. He also discussed patient's wishes with son, who stated his mother would want to pursue any treatment that would potentially reverse her current conditions, but would not wish to pursue any aggressive measures or placement of permanent rate/rhythm devices, as she has currently denied these in the past. Labs are significant for BUN 61, Cr 2.3, Na 129, K 5.9, Ca 11.3. TSH 12.8, PT 12.6, INR 1.3. Troponin 0.3. EKG revealed junctional bradycardia Left bundle branch block Abnormal ECG When compared with ECG of 30-AUG-2021 22:07, Junctional bradycardia has replaced Sinus rhythm Vent. rate has decreased BY 26 BPM. Principal Diagnosis JASMYNE, bradycardia, hypotension, hyperkalemia, End stage CHF, COVID-19 Discharge Exam Constitutional + ill appearing, + thin and + cachectic; no acute distress and no altered mental status Eyes + anicteric sclerae ENMT Mouth: + oral mucosal abnormality (diffuse erythema but improved from previous, no exudate, moist) Neck trachea midline, no thyromegaly Respiratory normal respiratory effort Cardiovascular Vessels: + JVD Extremities: no edema Chest (Breasts) Chest: normal inspection of chest Musculoskeletal Extremities: extremities normal to inspection; no cyanosis and no clubbing Skin no rashes, warm and dry Neurologic moves all extremities and awake; no focal motor deficits Psychiatric Orientation: alert, oriented to person, oriented to place and cooperative Lymphatic no lymphedema Discharge Data Allergies Allergy/AdvReac Type Severity Reaction Status Date / Time Penicillins Allergy Intermediate Hives Verified 09/13/21 15:43 ciprofloxacin Allergy Hives Unverified 09/22/21 10:58 Consultations 09/22/21 09:55 ED Decision to Admit Stat 09/22/21 16:08 Consult Cardiology Routine Ordered Studies 09/22/21 08:16 CT cervical spine wo con Stat CT head/brain wo con Stat 09/22/21 08:35 CT abd pelvis wo con Stat CT chest diagnostic wo con Stat Hospital Course (1) Bradycardia: Symptomatic bradycardia from AV mark agents. Initially was profoundly bradycardic and hypotensive on arrival Admitted to the ICU and was on dopamine for HR and BP. Weaned off on 09/24 in AM. Normal heart rates and blood pressure since that time -Continue holding amiodarone and beta-андрей - Presently HR back to 70 - 90 bpm, now off tele - Increased Synthroid dose as below - Continue to hold metoprolol, amiodarone - Appreciate Cardiology consult - No need to add back meds unless heart rate increases again. -Awaiting placement. Discussion with son by previous hospitalist on 09/30 that we will move toward comfort. Will try to minimize any meds that aren't focused on making her feel better. (2) Hypotension: Symptomatic hypotension secondary to bradycardia. Was on dopamine, but weaned off now. With severe biventricular HF, can expect low BPs. - Continue to hold home metoprolol, amiodarone, Aldactone, but restarted Bumex for JVD and for comfort - BP remains low-normal (3) Biventricular congestive heart failure: Severe based on ECHO here, LVEF 15%, severe WMAs, Severe RV dysfunction. Hold diuretics and other meds as above due to pt's bradycardia and hypotension. With JVD on examination but able to lie flat Patient interested in hospice care after discharge as she does not want to keep coming back to the hospital-looking for placement at skilled facility but will need POLST form filled out once at snf facility documenting her wishes to not return to the hospital and pursue comfort measures if worsens again. (4) Encephalopathy: Likely hypoxic-ischemic secondary to prolonged bradycardia and hypotension. CT of head and neck was unremarkable for acute mass/bleed/large vessel stroke. Patient awake and alert and answers questions - Appears somewhat confused and irritable at times, lethargic -Also has occasional visual hallucinations as per report from nursing staff and her son-these may be due to tramadol use versus hospital delirium but are not overly concerning and not distressful to the patient (5) UTI (urinary tract infection): Ur cx grew Enterococcus faecalis. -Completed a course of Dapto while in the hospital. (6) Acute kidney injury: Acute on chronic, JIGNA stage 2 based on rise in serum Cr from baseline Cr 1-1.2 to 2.25 on admission. - Secondary to impaired renal perfusion leading to decreased renal function, causing medication buildup/impaired clearance leading to patient's bradycardia. - Cr up to 2.0 on 09/27. - gave gentle IV fluids on 09/27 for ~12 hours Most recent labs with creatinine improved to 1.13 (7) Hypercalcemia: Ca 11.3, ionized 1.39 on admission. Vit D level checked and was >120. iPTH appropriately low normal. - Permanently discontinue home Vit D and calcium supplementation -calcium now normal (8) Hyponatremia: Na 129, serum osmolality 303 which is hypertonic but likely due to elevated BUN. Secondary to CHF. - Na+now normal - Follow periodically (9) Paroxysmal atrial fibrillation: In sinus rhythm here. - continue to hold metoprolol and amiodarone due to previous bradycardia and hypotension. - Not on AC due to h/o epistaxis (10) Hypothyroid: TSH 12.8. Elevated TSH may be a contributing factor to patient's bradycardia but unlikely to be primary cause. - Increased levothyroxine to 75 mcg (from prior 50 mcg) -Follow thyroid function tests in 4 weeks (11) Hypervitaminosis D: As above, Vit D > 120 causing hypercalcemia. Discontinued vitamin D and calcium supplement (12) Anemia: Mild, hgb 9.8-10, normocytic, likely anemia of chronic disease. - Follow CBC (13) COPD (chronic obstructive pulmonary disease): No acute issues. Reports no shortness of breath - Combivent PRN (14) Dyslipidemia: - Held statin while on Daptomycin - Stopped on 10/01 to move toward comfort. (15) Epistaxis: Mild, now resolved. - Afrin spray as needed (16) Osteopenia: Discontinued home calcium and Vit D for high Vit D and calcium levels (17) Peripheral arterial disease: -Discontinued aspirin and statin is moving towards comfort care (18) Peripheral neuropathy: Tramadol prn (19) Severe protein-calorie malnutrition: Severe protein-calorie malnutrition, BMI 13.7 kg/m*m (20) Oral candidiasis: with throat pain, no fevers started Magic swizzle with nystatin and dexamethasone for Candidiasis and pain--> continues to improve Now known to be positive for COVID-19 so could very well be 2/2 COVID (21) Thrombocytopenia: plts dropped to the 80s on 10/01, now back to normal by the next day--> was likely lab error (22) Chronic pain: continue tramadol prn-this may be contributing to some occasional hallucinations (23) Hypokalemia: replaced and improved continue KCl 20meq po bid while on bumex (24) COVID-19: tested positive on 10/06 on routine screening for discharge to SNF Repeat Cephied PCR test on 10/07 also positive No fevers, no hypoxia, no cough or SOB. Did have a sore throat just prior to testing positive which could be a sign Had a loose stool once -POx remains 96-97% on room air--> no indication for Remdesevir or Dexamethasone at this time continue to observe for worsening SNF still planning on accepting her today in COVID wing/isolation moved to isolation here on 10/06 DVT Proph-none for comfort Dispo-dc today to [place] [facility] DNR/DNI Discussed care with son on 10/04 and 10/06 Total Time Total Time Spent Total Time Spent (In Minutes): 35 min Discharge Plan Discharge Items Patient Disposition: Transfer Half-Way Fac Reason For Visit: BRADYCARDIA Discharge Diagnosis: Bradycardia,hypotension,Acute kidney injury, hyperkalemia, severe chronic biventricular systolic and diastolic CHF, COVID-19 Condition on Discharge: Fair Activity: As commented below Lifting: None Bathing: No limitations Exercise/Sports: As tolerated Non-emergency contact: Primary Care Provider and Lawnmower Mechanic Call non-emergency contact if: you have any medication questions and your symptoms worsen Follow-up/Referrals: Marley Bates MD [Primary Care Provider] - Diet: Low Sodium (2gm) Addtl Attending Provider Instructions: You were admitted with severely low blood pressure and heart rate as well as kidney failure. You were given medications in the ICU to support your blood pressure and a lot of your medications were discontinued. You decided you wanted to pursue comfort measures only if this were to happen again rather than going back to the hospital. Unfortunately, you contracted COVID-19 at some point while you were here in the hospital, but you are doing well so far with this. Your sore throat is improving and your oxygen levels are normal. If your oxygen levels go less than 94%, I would recommend your doctor start you on dexamethasone to reduce inflammation. Pending Studies at Discharge: No Stand-Alone Forms: [facility] Skilled Items Patient informed of condition?: Yes DNR: Yes Discharge Level of Care: Skilled Communicable Disease: Yes Discharge Prognosis: Stable Lines: None Urinary Catheter: No Medications and DC Order Prescriptions: New tramadol 50 mg Tablet 25 mg PO Q4H PRN (Reason: moderate-severe pain) Qty: 10 RF: 0 levothyroxine [Synthroid] 75 mcg Tablet 75 mcg PO DAILYBB Qty: 30 RF: 0 potassium chloride 20 mEq Tablet,Er Particles/Crystals 20 meq PO BID Qty: 60 RF: 0 nystatin 100,000 unit/mL suspension 5 ml PO QID 10 Days Qty: 200 RF: 0 Continued diclofenac sodium 1 % gel 2 g topical QID PRN (Reason: pain) Qty: 2 RF: 0 polyethylene glycol 3350 [Miralax] 17 gram/dose powder 17 g PO DAILY PRN (Reason: Constipation) RF: 0 pantoprazole 40 mg tablet,delayed release (DR/EC) 40 mg PO DAILY RF: 0 acetaminophen 325 mg tablet 650 mg PO Q4 PRN (Reason: .Pain 1-3) RF: 0 bumetanide 1 mg tablet 2 mg PO DAILY RF: 0 Combivent Respimat 20-100 mcg/actuation Mist 1 puff INHALATION Q6H PRN (Reason: Shortness Of Breath Or Wheezing) RF: 0 Discontinued atorvastatin 40 mg tablet 40 mg PO QAM Qty: 30 RF: 6 potassium chloride [Klor-Con M20] 20 mEq tablet,ER particles/crystals 40 meq PO DAILY Qty: 60 RF: 5 amiodarone 200 mg tablet 200 mg PO DAILY RF: 0 nystatin 100,000 unit/gram powder 1 applic topical DAILY PRN (Reason: Skin Irritation) RF: 0 metoprolol succinate 25 mg tablet extended release 24 hr 12.5 mg PO BID Qty: 30 RF: 2 cholecalciferol (vitamin D3) 125 mcg (5,000 unit) capsule 125 mcg PO DAILY RF: 0 magnesium oxide 400 mg magnesium capsule 400 mg PO BID RF: 0 tramadol 50 mg tablet 50 mg PO Q8 PRN (Reason: Pain) RF: 0 aspirin 81 mg tablet,chewable 81 mg PO DAILY Qty: 30 RF: 2 docusate sodium [Colace] 100 mg capsule 100 mg PO BID RF: 0 diphenhydramine HCl [Benadryl] 25 mg capsule 25 mg PO Q6H PRN (Reason: allergies) RF: 0 magnesium hydroxide [Milk of Magnesia] 400 mg/5 mL suspension 5 ml PO DAILY RF: 0 multivitamin with minerals Tablet 1 tab PO QAM RF: 0 sennosides-docusate sodium [Senna-S] 8.6-50 mg Tablet 1 tab-cap PO DAILY PRN (Reason: Constipation) RF: 0 levothyroxine 50 mcg Tablet 50 mcg PO DAILY RF: 0 gabapentin 300 mg Capsule 600 mg PO Q12 RF: 0 calcium carbonate-vitamin D3 [Calcium 500 + D] 500 mg-5 mcg (200 unit) Tablet 1 tab PO DAILY RF: 0 Macrobid 100 mg PO BID RF: 0 pramipexole 0.125 mg tablet 0.125 mg PO HS RF: 0 ferrous sulfate 325 mg (65 mg iron) tablet 325 mg PO Q OTHER DAY Qty: 14 RF: 0 spironolactone 50 mg tablet 25 mg PO DAILY RF: 0 Discharge Orders: Discharge Order (Routine); Ordered 10/08/21 Ordered By: Ursula Hsu Admission Data Admit Date/Time: 09/22/21 12:21 Attending Provider: Ursula Hsu Admit Provider: Mahesh Gupta Primary Care Provider: Marley Bates Other Providers: [facility] ; Ursula Hsu ; Lasha Chaves ; [facility] De Leon ; [facility] Coding Level of Care Code D/C DAY MANAGEMENT >30 MINS Diagnoses Bradycardia R00.1 Hypotension I95.9 Hypotension type: unspecified hypotension type Biventricular congestive heart failure I50.82 Encephalopathy G93.40 UTI (urinary tract infection) N39.0 Acute kidney injury N17.9 Hypercalcemia E83.52 Hyponatremia E87.1 Paroxysmal atrial fibrillation I48.0 Hypothyroid E03.9 Hypervitaminosis D E67.3 Anemia D64.9 Anemia type: unspecified type COPD (chronic obstructive pulmonary disease) J44.9 Dyslipidemia E78.5 Epistaxis R04.0 Osteopenia M85.80 Peripheral arterial disease I73.9 Peripheral neuropathy G62.9 Peripheral neuropathy type: polyneuropathy, unspecified Severe protein-calorie malnutrition E43 Oral candidiasis B37.0 Thrombocytopenia D69.6 Chronic pain G89.29 Hypokalemia E87.6 COVID-19 U07.1
== END 2021-10-08 11:49 | DRG 314 ==
LOC: ED 07:37 → SUATTDRO 12:21 → 1E 12:21 → 2N 09-26 10:01 → 3W 10-03 23:36 → 2W 10-06 22:22
DX: R00.1 Bradycardia, unspecified; E83.52 Hypercalcemia; E55.9 Vitamin D deficiency, unspecified; N39.0 Urinary tract infection, site not specified; I48.0 Paroxysmal atrial fibrillation; Z79.899 Other long term (current) drug therapy; I73.9 Peripheral vascular disease, unspecified; E78.5 Hyperlipidemia, unspecified; U07.1 COVID-19; Z79.01 Long term (current) use of anticoagulants; I50.42 Chronic combined systolic (congestive) and diastolic (congestive) heart failure; Z88.1 Allergy status to other antibiotic agents; E03.9 Hypothyroidism, unspecified; I42.9 Cardiomyopathy, unspecified; Z79.82 Long term (current) use of aspirin; E87.5 Hyperkalemia; E43 Unspecified severe protein-calorie malnutrition; D69.6 Thrombocytopenia, unspecified; Z66 Do not resuscitate; Z88.0 Allergy status to penicillin; Z68.1 Body mass index [BMI] 19.9 or less, adult; B95.2 Enterococcus as the cause of diseases classified elsewhere; G62.9 Polyneuropathy, unspecified; N17.9 Acute kidney failure, unspecified; I95.9 Hypotension, unspecified; Z79.890 Hormone replacement therapy; G25.81 Restless legs syndrome; G93.1 Anoxic brain damage, not elsewhere classified; K21.00 Gastro-esophageal reflux disease with esophagitis, without bleeding; J44.9 Chronic obstructive pulmonary disease, unspecified; B37.0 Candidal stomatitis